=== PATIENT | female | born 1995 | race Asian ===

== ENCOUNTER 2023-01-01 08:40 | Outpatient (OUT) | payer BC, SELFPAY ==
--- NOTE | 2023-01-01 08:44 | US_ITS ---
The [address] [address] Patient Name: DOMINIK FRANCO MRN: [id number] date: 1995 Sex: F Assigned Patient Location: US Current Patient Location: US Accession/Order Number: [id number] Exam Date: 01/01/2023 08:44 Report Date: 01/01/2023 15:09 At the request of: TONI JOSHUA Procedure: US OB transvaginal EXAMINATION: US OB transvaginal HISTORY: MISSED MENSES COMPARISON: No relevant comparison available. FINDINGS: GESTATIONAL SAC: Present and normal appearing. YOLK SAC: Present and normal appearing. POLE: Present and normal appearing. CARDIAC: Present. UTERUS: Normal size and appearance. OVARIES: Right: Normal. Left: Not seen. CERVIX: 4.2 cm in length and closed. CUL-DE-SAC: Normal. OTHER: None. AGE BY LMP: 9 weeks 1 day ELOY BY LMP: 08/05/2023 AGE BY US CRL: 9 weeks 0 days ELOY BY US CRL: 08/06/2023 US/US OB transvaginal IMPRESSION: 1. Single live intrauterine . Electronically authenticated by: KRISTINA ESTRADA Date: 01/01/2023 15:09
== END 2023-01-01 08:41 | disposition home or self-care (01) ==
LOC: US 08:41
PROVIDERS: Visit Provider Obstetrics & Gynecology
DX: Z34.91 Encounter for supervision of normal pregnancy, unspecified, first trimester (principal); N92.6 Irregular menstruation, unspecified
CPT/HCPCS: 76817

== ENCOUNTER 2023-01-14 11:22 | Outpatient (OUT) | payer BC, SELFPAY ==
[2023-01-14 11:51] LABS: Basophils Percent Auto 0.3 % (0.2-2.0); Eosinophils Percent Auto 0.3 % (0.9-7.0); Hematocrit 37.8 % (36.0-48.0); Hemoglobin 12.8 g/dL (12.0-16.0); Immature Granulocytes Abs Auto 0.01 10^3/uL (0.00-0.03); Immature Granulocytes Pct Auto 0.2 % (0.0-0.5); Lymphocytes Absolute Auto 1.9 10^3/uL (1.2-3.8); Lymphocytes Percent Auto 31.9 % (20.5-60.0); Mean Corpuscular HGB Conc 33.9 g/dL (29.9-35.2); Mean Corpuscular Hemoglobin 30.8 pg (26.7-34.0); Mean Corpuscular Volume 90.9 fL (81.0-99.0); Monocytes Absolute Auto 0.3 10^3/uL (0.3-0.8); Monocytes Percent Auto 4.3 % (1.7-12.0); Neutrophils Absolute Auto 3.8 10^3/uL (1.4-6.5); Platelet Count 166 10^3/uL (150-450); Red Blood Count 4.16 10^6/uL (4.20-5.40); Red Cell Distribution Width 11.9 % (11.0-15.0)
[2023-01-14 11:58] LABS: BOX Test Sent Out Y
[2023-01-14 12:09] LABS: Estimated Average Glucose 85 mg/dL; Glycohemoglobin A1C 4.6 % (4.5-6.2)
[2023-01-15 06:08] LABS: HBsAg Screen Negative (Negative); HCV Ab Non Reactive (Non Reactive); HIV Ab/p24 Ag Screen Non Reactive (Non Reactive)
[2023-01-15 07:08] LABS: Rubella Antibodies, IgG <0.90 index (Immune >0.99)
[2023-01-15 10:08] LABS: Rapid Plasma Reagin, Quant Non Reactive titer (NonRea<1:1)
== END 2023-01-14 11:23 | disposition home or self-care (01) ==
LOC: LAB 11:25
PROVIDERS: Visit Provider Obstetrics & Gynecology
DX: Z34.80 Encounter for supervision of other normal pregnancy, unspecified trimester (principal); N92.6 Irregular menstruation, unspecified
CPT/HCPCS: 36415; 83036; 84443; 85025; 86592; 86762; 86803; 86850; 86900; 86901; 87086; 87340; 87389

== ENCOUNTER 2023-03-08 20:18 | Outpatient (REF) | payer BC, SELFPAY ==
[2023-03-12 16:11] LABS: Age Gdln ACOG Testing Note (.); IGP, rfx Aptima HPV ASCU Note (.)
== END 2023-03-08 20:19 | disposition home or self-care (01) ==
LOC: LAB 20:18
PROVIDERS: Visit Provider Obstetrics & Gynecology
DX: Z01.419 Encounter for gynecological examination (general) (routine) without abnormal findings (principal)
CPT/HCPCS: G0145

== ENCOUNTER 2023-03-23 08:43 | Outpatient (OUT) | payer BC, SELFPAY ==
--- NOTE | 2023-03-23 08:44 | US_ITS ---
[address] [address] Patient Name: DOMINIK FRANCO MRN: [id number] date: 1995 Sex: F Assigned Patient Location: US Current Patient Location: LAB Accession/Order Number: [id number] Exam Date: 03/23/2023 08:45 Report Date: 03/23/2023 15:22 At the request of: TONI JOSHUA Procedure: US OB cervical length EXAMINATION: US OB anatomy, US OB cervical length HISTORY: ANATOMY COMPARISON: No relevant comparison available. TECHNIQUE: Transabdominal sonographic examination was performed for obstetrical and evaluation. FINDINGS: Number: 1 Heart Rate: 140.0 bpm H.B. /min Amniotic Fluid Volume: Subjectively normal Placental Location: ANTERIOR with lower margin 7.1 cm from os. Small area of soft tissue adjacent the internal os of uncertain allergy; possible accessory placenta. Cervix Length: 2.9 cm; closed. ANATOMY: Normal Structures -cerebellum, cisterna magna, lateral cerebral ventricles, orbits, midline falx, hard palate, four-chamber heart, RVOT, LVOT, stomach, kidneys, bladder, umbilical cord insertion into abdomen, three-vessel cord, cervical spine, thoracic spine, lumbar spine, sacral spine, right upper extremity, left upper extremity, right lower extremity, left lower extremity. SUBOPTIMALLY SEEN: None ABNORMALITIES: Bilateral choroid plexus cysts, 4 mm in diameter on one side, 3 mm on the other. Echogenic focus within left cardiac ventricle. BIOMETRY: BPD: 5.1 cm 21 weeks 4 days ; 80% HC: 18.3 cm 20 weeks 5 days; 40% AC: 16.3 cm 21 weeks 3 days; 65% FL: 3.6 cm 21 weeks 2 days ; 61% EFW:411.1 grams; 75% FL/AC: 21.9 FL/BPD: 69.5 HC/AC: 1.1 GESTATIONAL AGE: Age by EDC: 20 weeks 5 days ELOY by EDC: 08/05/2023 Age by current US: 21 weeks 2 days ELOY by current US: 08/01/2023 US/US OB cervical length IMPRESSION: 1. Single live intrauterine with growth detailed above. 2. Bilateral choroid plexus cysts. 3. Echogenic focus within left cardiac ventricle; nonspecific but can be associated with the trisomy syndromes. 4. Suspect small accessory placenta adjacent the cervix. Dominant placenta is anterior without previa. Suspect venous esquivel within the placenta. Electronically authenticated by: KRISTINA ESTRADA Date: 03/23/2023 15:22
--- NOTE | 2023-03-23 08:44 | US_ITS ---
[address] [address] Patient Name: DOMINIK FRANCO MRN: [id number] date: 1995 Sex: F Assigned Patient Location: US Current Patient Location: LAB Accession/Order Number: [id number] Exam Date: 03/23/2023 08:45 Report Date: 03/23/2023 15:22 At the request of: TONI JOSHUA Procedure: US OB anatomy EXAMINATION: US OB anatomy, US OB cervical length HISTORY: ANATOMY COMPARISON: No relevant comparison available. TECHNIQUE: Transabdominal sonographic examination was performed for obstetrical and evaluation. FINDINGS: Number: 1 Heart Rate: 140.0 bpm H.B. /min Amniotic Fluid Volume: Subjectively normal Placental Location: ANTERIOR with lower margin 7.1 cm from os. Small area of soft tissue adjacent the internal os of uncertain allergy; possible accessory placenta. Cervix Length: 2.9 cm; closed. ANATOMY: Normal Structures -cerebellum, cisterna magna, lateral cerebral ventricles, orbits, midline falx, hard palate, four-chamber heart, RVOT, LVOT, stomach, kidneys, bladder, umbilical cord insertion into abdomen, three-vessel cord, cervical spine, thoracic spine, lumbar spine, sacral spine, right upper extremity, left upper extremity, right lower extremity, left lower extremity. SUBOPTIMALLY SEEN: None ABNORMALITIES: Bilateral choroid plexus cysts, 4 mm in diameter on one side, 3 mm on the other. Echogenic focus within left cardiac ventricle. BIOMETRY: BPD: 5.1 cm 21 weeks 4 days ; 80% HC: 18.3 cm 20 weeks 5 days; 40% AC: 16.3 cm 21 weeks 3 days; 65% FL: 3.6 cm 21 weeks 2 days ; 61% EFW:411.1 grams; 75% FL/AC: 21.9 FL/BPD: 69.5 HC/AC: 1.1 GESTATIONAL AGE: Age by EDC: 20 weeks 5 days ELOY by EDC: 08/05/2023 Age by current US: 21 weeks 2 days ELOY by current US: 08/01/2023 US/US OB anatomy IMPRESSION: 1. Single live intrauterine with growth detailed above. 2. Bilateral choroid plexus cysts. 3. Echogenic focus within left cardiac ventricle; nonspecific but can be associated with the trisomy syndromes. 4. Suspect small accessory placenta adjacent the cervix. Dominant placenta is anterior without previa. Suspect venous esquivel within the placenta. Electronically authenticated by: KRISTINA ESTRADA Date: 03/23/2023 15:22
== END 2023-03-23 08:44 | disposition home or self-care (01) ==
LOC: US 08:43
PROVIDERS: Visit Provider Obstetrics & Gynecology
DX: O35.03X0 Maternal care for (suspected) central nervous system malformation or damage in fetus, choroid plexus cysts, not applicable or unspecified (principal); Z3A.20 20 weeks gestation of pregnancy
CPT/HCPCS: 36415; 76805; 76817; 82105

== ENCOUNTER 2023-03-23 09:49 | Outpatient (OUT) | payer BC, SELFPAY ==
[2023-03-25 02:06] LABS: AFP Value 56.7 ng/mL (.); Gest. Age on Collection Date 18.6 weeks (.); Gestat. Age Based On As provided (.); Insulin Dep Diabetes No (.); OSBR Risk 1 IN 10000 (.); Results Report (.)
== END 2023-03-23 09:50 | disposition home or self-care (01) ==
LOC: LAB 09:51
PROVIDERS: Visit Provider Obstetrics & Gynecology
DX: Z34.92 Encounter for supervision of normal pregnancy, unspecified, second trimester (principal)
CPT/HCPCS: 36415; 82105

== ENCOUNTER 2023-05-07 15:20 | Outpatient (OUT) | payer BC, SELFPAY ==
--- NOTE | 2023-05-07 15:25 | US_ITS ---
[address] [address] Patient Name: DOMINIK FRANCO MRN: [id number] date: 1995 Sex: F Assigned Patient Location: US Current Patient Location: Accession/Order Number: [id number] Exam Date: 05/07/2023 15:35 Report Date: 05/11/2023 07:44 At the request of: TONI JOSHUA Procedure: US OB cervical length EXAMINATION: US OB growth, US OB cervical length HISTORY: Antepartum Placenta Circumvallata O43.119 COMPARISON: No relevant comparison available. FINDINGS: Heart Rate: 152.5 bpm Amniotic Fluid Volume: 19.0 cm Number: 1.0 Position: Cephalic presentation, longitudinal lie Placenta: Anterior. Placental edge is 7.4 cm from the internal os. Areas of anechoic echogenicity within the placenta likely venous lakes. Cervix: Closed, 2.9 cm Other: Previously seen suspected accessory placenta is not visualized. Maximum Vertical Pocket: 5.1 cm cm 6.1 cm cm 3.8 cm cm 4.0 cm cm BIOMETRY: BPD: 7.3 cm cm; 29 weeks 1 days; 93% HC: 26.3 cmcm; 28 weeks 5 days , 72% AC: 22.9 cm; 27 weeks 2 days , 45% FL: 4.9 cm cm; 26 weeks 3 days; 15.6 % % EFW: 1039.5 grams , 2 lbs. 5 oz., 39% FL/AC: 21.3 FL/BPD: 66.9 HC/AC: 1.2 GESTATIONAL AGE: Age by EDC: 27 weeks 1 days ELOY by EDC: 08/05/2023 Age by US: 27 weeks 6 days ELOY by US: 07/31/2023 US/US OB cervical length IMPRESSION: Normal interval growth Closed cervix measuring 2.9 cm in length Accessory placenta not visualized on the current exam Electronically authenticated by: GREG RODNEY Date: 05/11/2023 07:44
--- NOTE | 2023-05-07 15:25 | US_ITS ---
[address] [address] Patient Name: DOMINIK FRANCO MRN: [id number] date: 1995 Sex: F Assigned Patient Location: US Current Patient Location: Accession/Order Number: [id number] Exam Date: 05/07/2023 15:35 Report Date: 05/11/2023 07:44 At the request of: TONI JOSHUA Procedure: US OB growth EXAMINATION: US OB growth, US OB cervical length HISTORY: Antepartum Placenta Circumvallata O43.119 COMPARISON: No relevant comparison available. FINDINGS: Heart Rate: 152.5 bpm Amniotic Fluid Volume: 19.0 cm Number: 1.0 Position: Cephalic presentation, longitudinal lie Placenta: Anterior. Placental edge is 7.4 cm from the internal os. Areas of anechoic echogenicity within the placenta likely venous lakes. Cervix: Closed, 2.9 cm Other: Previously seen suspected accessory placenta is not visualized. Maximum Vertical Pocket: 5.1 cm cm 6.1 cm cm 3.8 cm cm 4.0 cm cm BIOMETRY: BPD: 7.3 cm cm; 29 weeks 1 days; 93% HC: 26.3 cmcm; 28 weeks 5 days , 72% AC: 22.9 cm; 27 weeks 2 days , 45% FL: 4.9 cm cm; 26 weeks 3 days; 15.6 % % EFW: 1039.5 grams , 2 lbs. 5 oz., 39% FL/AC: 21.3 FL/BPD: 66.9 HC/AC: 1.2 GESTATIONAL AGE: Age by EDC: 27 weeks 1 days ELOY by EDC: 08/05/2023 Age by US: 27 weeks 6 days ELOY by US: 07/31/2023 US/US OB growth IMPRESSION: Normal interval growth Closed cervix measuring 2.9 cm in length Accessory placenta not visualized on the current exam Electronically authenticated by: GREG RODNEY Date: 05/11/2023 07:44
== END 2023-05-07 15:21 | disposition home or self-care (01) ==
LOC: US 15:21
PROVIDERS: Visit Provider Obstetrics & Gynecology
DX: Z36.86 Encounter for antenatal screening for cervical length (principal); O43.113 Circumvallate placenta, third trimester; Z3A.27 27 weeks gestation of pregnancy
CPT/HCPCS: 76816; 76817

== ENCOUNTER 2023-05-31 08:00 | Outpatient (OUT) | payer BC, SELFPAY ==
--- OUTSIDE RECORDS SUMMARY | 2023-05-31 08:12 | XMS_ITS | CCD ---
Author Name Unknown Address [address] [place] [address] Organization [facility] Care Team Providers Care Log Processor Operator Name Role Phone Unavailable Primary Care Provider Unavailjarett e TRES, DR MUÑOZ Consulting Unavailable TRES, DR MUÑOZ Attending Unavailable REQUEST, NONE LISTED Primary Care Unavaila ble TRES, DR MUÑOZ Admitting Unavailable KARASIK, DR GORE Attending Unavailable KARASIK, DR GORE Admitting Unavailable KARASIK, DR GORE Consulting Unavailable REQUEST, NONE LISTED Primary Care Unavaila ble TRES, DR MUÑOZ Consulting Unavailable ZIEBER, DR KRISTINA Kelly Consulting Unavailable MISC, DR RODRÍGUEZ Primary Care Unavailable TRES, DR MUÑOZ Admitting Unavailable TRES, DR MUÑOZ Attending Unavailable TRES, DR MUÑOZ Consulting Unavailable ZIEBER, DR KRISTINA Kelly Consulting Unavailable TRES, DR MUÑOZ Consulting Unavailable TRES, DR MUÑOZ Attending Unavailable REQUEST, DR SENA LISTED Primary Care Unavaila ble TRES, DR MUÑOZ Admitting Unavailable TRES, DR MUÑOZ Consulting Unavailable TRES, DR MUÑOZ Attending Unavailable REQUEST, NONE LISTED Primary Care Unavaila ble TRES, DR MUÑOZ Admitting Unavailable TRES, DR MUÑOZ Admitting Unavailable TRES, DR MUÑOZ Attending Unavailable REQUEST, NONE LISTED Primary Care Unavaila ble TRES, DR MUÑOZ Attending Unavailable TRES, DR MUÑOZ Admitting Unavailable TRES, DR MUÑOZ Consulting Unavailable REQUEST, NONE LISTED Primary Care Unavaila ble TRES, DR MUÑOZ Consulting Unavailable REQUEST, NONE LISTED Primary Care Unavaila ble TRES, DR MUÑOZ Attending Unavailable TRES, DR MUÑOZ Admitting Unavailable ZIEBER, DR KRISTINA Kelly Consulting Unavailable REQUEST, NONE LISTED Primary Care Unavaila ble TRES, DR MUÑOZ Attending Unavailable WEST, DR GREG Smith Consulting Unavailable TRES, DR MUÑOZ Admitting Unavailable TRES, DR MUÑOZ Consulting Unavailable TRES, DR MUÑOZ Consulting Unavailable TRES, DR MUÑOZ Attending Unavailable MISC, DR RODRÍGUEZ Primary Care Unavailable TRES, DR MÑUOZ Admitting Unavailable TRES, DR MUÑOZ Consulting Unavailable TRES, DR MUÑOZ Attending Unavailable REQUEST, DR NONE LISTED Primary Care Unavaila ble TRES, DR MUÑOZ Admitting Unavailable KARASIK, DR GORE Attending Unavailable KARASIK, DR GORE Admitting Unavailable KARASIK, DR GORE Consulting Unavailable REQUEST, NONE LISTED Primary Care Unavaila ble TRES, DR MUÑOZ Consulting Unavailable ZIEBER, DR KRISTINA Kelly Consulting Unavailable MISC, DR RODRÍGUEZ Primary Care Unavailable HAY, DR POWELL Attending Unavailable HAY, DR POWELL Admitting Unavailable HAY, DR POWELL Consulting Unavailable KARASIK, DR GORE Consulting Unavailable TRES, DR MUÑOZ Attending Unavailable REQUEST, DR NONE LISTED Primary Care Unavaila ble TRES, DR MUÑOZ Admitting Unavailable TRES, DR MUÑOZ Consulting Unavailable ELINOR, ALIX FERRER Consulting Unava ilable TRES, DR MUÑOZ Procedure Practitioner Unavailab le TRES, DR MUÑOZ Consulting Unavailable TRES, DR MUÑOZ Attending Unavailable REQUEST, DR NONE LISTED Primary Care Unavaila ble TRES, DR MUÑOZ Admitting Unavailable ZIEBER, DR KRISTINA Kelly Consulting Unavailable PATEL, JOELCHA Consulting Unavailable TRES, DR MUÑOZ Attending Unavailable REQUEST, DR SENA LISTED Primary Care Unavaila ble TRES, DR MUÑOZ Admitting Unavailable MISC, DR RODRÍGUEZ Primary Care Unavailable TRES, DR MUÑOZ Admitting Unavailable TRES, DR MUÑOZ Consulting Unavailable REQUEST, DR SENA LISTED Referring Unavaila ble TRES, DR MUÑOZ Attending Unavailable TRES, DR MUÑOZ Attending Unavailable REQUEST, DR SENA LISTED Primary Care Unavaila ble TRES, DR MUÑOZ Admitting Unavailable Gloria CASTELLANOS Primary Care Physician [phone] Kemal Sharma Attending Unavailable Unavailable Primary Care Provider UnavailLYDIA Liao Referring Unavailable TRESTONI CHRISTINA Attending Unavailable TRES, TONI Attending Unavailable LYDIA GALLO Attending Unavailable Allergies Allergy Classification Reported Allergen(s) Allergy Type Date of Onset Reaction(s) Facility (2 sources) Amoxicillin; Translations: [amoxicillin] Drug Allergy 2 [facility] Repository (1 source) Amoxicillin; Translations: [amoxicillin] Drug Allergy rash [facility] [place] (1 source) Penicillins Propensity to adverse reactions to drug 3 Rash [facility] Medications Current Medications Medication Drug Class(es) Dates Sig (Normalized) Sig (Original) Vit-Fe Fumarate-FA ( VITAMINS PO) (1 source) take 1 tablet by mouth once daily Vit-Fe Fumarate-FA ( VITAMINS PO) Take 1 tablet by mouth daily 0 Active progesterone 200 mg oral capsule (1 source) Progesterone Start: 04-07-2023 progesterone (PROMETRIUM) [address] 1 capsule vaginally daily 0 04/07/2023 Active valACYclovir 1000 mg oral tablet (1 source) Herpesvirus Nucleoside Analog DNA Polymerase Inhibitor, Herpes Simplex Virus Nucleoside Analog DNA Polymerase Inhibitor, Herpes Zoster Virus Nucleoside Analog DNA Polymerase Inhibitor Start: 04-09-2020 valacyclovir 1 g Tab See Instructions, take 2 tab at first sign of cold sore repeat in 12 hours., # 16 tab(s), Refills(s) 1, Pharmacy: [id number], 168, cm, 04/09/20 15:23:00 EST, Height/Length Dosing, 50.7, kg, 04/09/20 15:23:00 EST, Weight Dosing Start Date: 04/09/20 Status: Ordered Zofran ODT 4 mg Tab-Dis (1 source) Start: 06-09-2021 take 1 tablet by mouth every six hours as needed for nausea Zofran ODT 4 mg Tab-Dis 4 mg = 1 tab(s), Oral, q6hr, PRN Nausea/Vomiting, # 12 tab(s), Refills(s) 0, Pharmacy: [facility], 165.1, cm, 06/09/21 2:43:00 EST, Height/Length Dosing, 49, kg, 06/09/21 2:43:00 EST, Weight Dosing Start Date: 06/09/21 Status: Ordered Problems Active Problems Problem Classification Problem Date Documented Date Episodic/Chronic Diseases of mouth; excluding dental (1 source) Aphthous ulcer of mouth 11-02-2019 Episodic Menstrual disorders (4 sources) Irregular menstruation, unspecified; Translations: [IRREGULAR MENSTRUATION UNSPECIFIED] Onset: 07-03-2021 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 (1 source) First degree perineal laceration during delivery; Translations: [FIRST DEG PERINEAL LAC DUR DELIV] Onset: 01-14-2022 Episodic Other complications of (5 sources) Maternal care for other known or suspected poor growth, third trimester, not applicable or unspecified; Translations: [MAT CARE OTH WI FTL GRTH 3RD TM UNS] Onset: 12-31-2021 Episodic Other complications of (1 source) Maternal care for other specified problems, third trimester, not applicable or unspecified; Translations: [MAT CARE OTH FTL PROB 3RD TRI UNS] Onset: 12-25-2021 Episodic Other complications of (1 source) Vomiting of ; Translations: [Vomiting of , unspecified] Onset: 01-03-2023 Episodic Other female genital disorders (5 sources) Other specified noninflammatory disorders of vagina; Translations: [OTH SPEC NONINFLAMMATORY D/O VAGINA] Onset: 12-24-2021 Episodic Other inflammatory condition of skin (1 source) 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 Other nutritional; endocrine; and metabolic disorders (1 source) Body mass index less than 20 11-02-2019 Episodic Other and delivery including normal (8 sources) Single live ; Translations: [Encounter for supervision of other normal , first trimester] Onset: 06-18-2021 Episodic Other screening for suspected conditions (not mental disorders or infectious disease) (20 sources) Encounter for screening for Streptococcus B; Translations: [Encounter for other screening follow-up] Onset: 07-04-2021 Episodic Other skin disorders (1 source) Acne 12-05-2018 Episodic Polyhydramnios and other problems of amniotic cavity (5 sources) Oligohydramnios, third trimester, not applicable or unspecified; Translations: [OLIGOHYDRAMNIOS THIRD TRI NA/UNS] Onset: 12-24-2021 Episodic Residual codes; unclassified (1 source) 38 weeks gestation of ; Translations: [38 WEEKS GESTATION OF ] Onset: 01-14-2022 Episodic Residual codes; unclassified (1 source) 37 weeks gestation of ; Translations: [37 WEEKS GESTATION OF ] Onset: 01-04-2022 Episodic Residual codes; unclassified (1 source) 36 weeks gestation of ; Translations: [36 WEEKS GESTATION OF ] Onset: 12-31-2021 Episodic Residual codes; unclassified (1 source) 35 weeks gestation of ; Translations: [35 WEEKS GESTATION OF ] Onset: 12-25-2021 Episodic Unclassified (1 source) CONTACT W/AND (SUSP) EXPOS COVID-19; Translations: [CONTACT W/AND (SUSP) EXPOS COVID-19] Onset: 01-14-2022 Unclassified (2 sources) Patient encounter status 12-05-2018 Viral infection (1 source) Herpes labialis 04-09-2020 Episodic Past or Other Problems Problem Classification Problem Date Documented Date Episodic/Chronic Immunizations and screening for infectious disease (3 sources) Encounter for screening for human papillomavirus (HPV); Translations: [Encounter for screening for infections with a predominantly sexual mode of transmission] Onset: 07-04-2021 Episodic Other complications of (4 sources) Mild hyperemesis gravidarum; Translations: [MILD HYPEREMESIS GRAVIDARUM] Onset: 06-17-2021 Episodic Residual codes; unclassified (1 source) 9 weeks gestation of ; Translations: [9 WEEKS GESTATION OF ] Onset: 06-19-2021 Episodic Results Test Name Value Interpretation Reference Range Facility CBC with Auto Differentialon 04-28-2023 Basophils (Bld) [#/Vol] 0.03 10*3/uL [facility] Basophils/100 WBC (Bld) 1 % 0 - 2 % [facility] Eosinophils (Bld) [#/Vol] 0.04 10*3/uL [facility] Eosinophils/100 WBC (Bld) 1 % 0 - 5 % [facility] Erythrocyte distribution width (RBC) [Ratio] 11.8 % Low 12.1 - 15.2 % [facility] Hematocrit (Bld) [Volume fraction] 35.4 % Low 36.0 - 46.0 % [facility] Hemoglobin (Bld) [Mass/Vol] 11.9 g/dL Low 12.0 - 16.0 g/dL [facility] Immature granulocytes (Bld) [#/Vol] 0.04 10*3/uL [facility] Immature granulocytes/100 WBC (Bld) 1 % 0 - 5 % [facility] Interpretation and review of laboratory results Abnormal [facility] Lymphocytes/100 WBC (Bld) 24 % 15 - 40 % [facility] Lymphocytes/100 WBC (Bld) 1.53 % [facility] MCH (RBC) [Entitic mass] 32.9 pg 26.0 - 34.0 pg [facility] MCHC (RBC) [Mass/Vol] 33.6 g/dL 31.0 - 37.0 g/dL [facility] MCV (RBC) [Entitic vol] 97.8 fL 80.0 - 100.0 fL [facility] Monocytes/100 WBC (Bld) 6 % 4 - 8 % [facility] Monocytes/100 WBC (Bld) 0.41 % [facility] Neutrophils/100 WBC (Bld) 67 % 47 - 75 % [facility] Platelet mean volume (Bld) [Entitic vol] 9.5 fL 6.0 - 12.0 fL [facility] Platelets (Bld) [#/Vol] 155 10*3/uL [facility] RBC (Bld) [#/Vol] 3.62 10*6/uL Low 4.00 - 5.2 0 m/uL [facility] Segmented neutrophils/100 WBC (Bld) 4.37 % [facility] WBC other (Bld) [#/Vol] 6.4 [facility] CBC with Diffon 04-28-2023 Abs. Basophil 0.03 k/uL Normal 0.00-0.20 [facility] Comment on above: Performed By: #### C DP, GLUSC #### [facility] [address] [place] [address] Manager Development: Greg Castillo MD Abs.Imm.Granulocyte 0.04 k/uL Normal 0.00-0.30 [facility] Comment on above: Performed By: #### C DP, GLUSC #### [facility] [address] [facility] [address] Manager Development: Greg Castillo MD Abs.Neutrophil (Seg) 4.37 k/uL Normal 2.5-7.0 [facility] Comment on above: Performed By: #### C DP, GLUSC #### [facility] [address] [place], [place] [id number] Manager Development: Greg Castillo MD Basophils/100 WBC (Bld) 1 % Normal 0-2 [facility] Comment on above: Performed By: #### C DP, GLUSC #### [facility] [address] [place], [place] [id number] Manager Development: Greg Castillo MD Eosinophils (Bld) [#/Vol] 0.04 10*3/uL Normal 0.00-0.40 [facility] Comment on above: Performed By: #### C DP, GLUSC #### [facility] [address] [place] [address] Manager Development: Greg Castillo MD Eosinophils/100 WBC (Bld) 1 % Normal 0-5 [facility] Comment on above: Performed By: #### C DP, GLUSC #### [facility] [address] [place] [address] Manager Development: Greg Castillo MD Erythrocyte distribution width (RBC) [Ratio] 11.8 % Low 12.1-15.2 [facility] Comment on above: Performed By: #### C DP, GLUSC #### [facility] [address] [place] [address] Manager Development: Greg Castillo MD Hematocrit (Bld) [Volume fraction] 35.4 % Low 36.0-46.0 [facility] Comment on above: Performed By: #### C DP, GLUSC #### [facility] [address] [place] [address] Manager Development: Greg Castillo MD Hemoglobin (Bld) [Mass/Vol] 11.9 g/dL Low 12.0-16.0 [facility] Comment on above: Performed By: #### C DP, GLUSC #### [facility] [address] [place] [address] Manager Development: Greg Castillo MD Immature granulocytes/100 WBC (Bld) 1 % Normal 0-5 [facility] Comment on above: Performed By: #### C DP, GLUSC #### [facility] [address] [place] [id number] Manager Development: Greg Castillo MD Lymphocytes (Bld) [#/Vol] 1.53 10*3/uL Normal 1.00-4.80 [facility] Comment on above: Performed By: #### C DP, GLUSC #### [facility] [address] [place] [address] Manager Development: Greg Castillo MD Lymphocytes/100 WBC (Bld) 24 % Normal 15-40 [facility] Comment on above: Performed By: #### C DP, GLUSC #### [facility] [address] [place] [address] Manager Development: Greg Castillo MD MCH (RBC) [Entitic mass] 32.9 pg Normal 26.0-34.0 [facility] Comment on above: Performed By: #### C DP, GLUSC #### [facility] [address] [place] [address] Manager Development: Greg Castillo MD MCHC (RBC) [Mass/Vol] 33.6 g/dL Normal 31.0-37.0 [facility] Comment on above: Performed By: #### C DP, GLUSC #### [facility] [address] [place] [address] Manager Development: Greg Castillo MD MCV (RBC) [Entitic vol] 97.8 fL Normal 80.0-100.0 [facility] Comment on above: Performed By: #### C DP, GLUSC #### [facility] [address] [place] [address] Manager Development: Greg Castillo MD Monocytes (Bld) [#/Vol] 0.41 10*3/uL Normal 0.00-1.00 [facility] Comment on above: Performed By: #### C DP, GLUSC #### [facility] [address] [place] [phone] Manager Development: Greg Castillo MD Monocytes/100 WBC (Bld) 6 % Normal 4-8 [facility] Comment on above: Performed By: #### C DP, GLUSC #### [facility] [address] [place] [phone] Manager Development: Greg Castillo MD Neutrophil (Seg) 67 % Normal 47-75 [facility] Comment on above: Performed By: #### C DP, GLUSC #### [facility] [address] [place] [id number] Manager Development: Greg Castillo MD Platelet mean volume (Bld) [Entitic vol] 9.5 fL Normal 6.0-12.0 [facility] Comment on above: Performed By: #### C DP, GLUSC #### [facility] [address] [place] [id number] Manager Development: Greg Castillo MD Platelets (Bld) [#/Vol] 155 10*3/uL Normal 140-450 [facility] Comment on above: Performed By: #### C DP, GLUSC #### [facility] [address] [place] [address] (863) Manager Development: Greg Castillo MD RBC (Bld) [#/Vol] 3.62 10*6/uL Low 4.00-5.20 [facility] Comment on above: Performed By: #### C DP, GLUSC #### [facility] [address] [place] [address] Manager Development: Greg Castillo MD WBC (Bld) [#/Vol] 6.4 10*3/uL Normal 3.5-11.0 [facility] Comment on above: Performed By: #### C DP, GLUSC #### [facility] [address] [place] [address] Manager Development: Greg Castillo MD Glucose David Scr 50gon 2023 Glucose [Mass/Vol] 108 mg/dL Normal 70-135 [facility] Comment on above: Performed By: #### C DP, GLUSC #### [facility] [address] [place] [address] Manager Development: Greg Castillo MD Glu Administered via Glucola Normal [facility] Comment on above: Performed By: #### C DP, GLUSC #### [facility] [address] [place] [address] Manager Development: Greg Castillo MD Glucose tolerance, 1 houron 04-28-2023 GLU ADMN Glucola [facility] Glucose 1 Hr post 50 g glucose PO [Mass/Vol] 108 mg/dL 70 - 135 mg/dL [facility] Discharge Instructionson Discharge Instructions [id number] Normal [facility] Auto Diffon 01-03-2023 Basophils/100 WBC (Bld) 0.5 % Normal 0.0-2.0 [facility] Comment on above: Order Comment: Order Added by Discern Expert. Performed By: #### 2 [id number], [id number], [id number], [id number] #### [facility] [address] [place] [address] Basophils/Leukocytes Auto (Bld) [Pure # fraction] 0.0 E9/L Normal 0.0-0.2 [facility] Comment on above: Order Comment: Order Added by Discern Expert. Performed By: #### 2 051857, [id number], [id number], [id number] #### [facility] [address] [place] [address] Eosinophils/100 WBC (Bld) 0.3 % Normal 0.0-8.0 [facility] Comment on above: Order Comment: Order Added by Discern Expert. Performed By: #### 2 450678, [id number], [id number], [id number] #### [facility] [address] [place] [address] Eosinophils/Leukocyte s Auto (Bld) [Pure # fraction] 0.0 E9/L Normal 0.0-0.5 [facility] Comment on above: Order Comment: Order Added by Kya Expert. Performed By: #### 2 452680, [id number], [id number], [id number] #### [facility] [address] [place] [address] Lymphocytes/100 WBC (Bld) 29.1 % Normal 14.0-50.0 [facility] Comment on above: Order Comment: Order Added by Kya Expert. Performed By: #### 2 459337, 7154352, [id number], [id number] #### [facility] [address] [place] [address] Lymphocytes/Leukocyte s Auto (Bld) [Pure # fraction] 1.7 E9/L Normal 1.0-4.0 [facility] Comment on above: Order Comment: Order Added by Discern Expert. Performed By: #### 2 071760, 7858866, [id number], [id number] #### [facility] [address] [place] [address] Monocytes/100 WBC (Bld) 5.1 % Normal 4.0-14.0 [facility] Comment on above: Order Comment: Order Added by Kya Expert. Performed By: #### 2 033191, 8888103, [id number], [id number] #### [facility] [address] [place] [address] Monocytes/Leukocytes Auto (Bld) [Pure # fraction] 0.3 E9/L Normal 0.2-1.0 [facility] Comment on above: Order Comment: Order Added by Discern Expert. Performed By: #### 2 614793, 5544751, [id number], [id number] #### [facility] [address] [place] [address] Neutrophils/100 WBC (Bld) 65.0 % Normal 36.0-75.0 [facility] Comment on above: Order Comment: Order Added by Discern Expert. Performed By: #### 2 483543, 5139748, [id number], [id number] #### [facility] [address] [place] [address] Neutrophils/Leukocyte s Auto (Bld) [Pure # fraction] 3.8 E9/L Normal 2.0-7.5 [facility] Comment on above: Order Comment: Order Added by Discern Expert. Performed By: #### 2 693034, 2269396, [id number], [id number] #### [facility] [address] [place] [address] BMPon 01-03-2023 Creatinine [Mass/Vol] 0.5 mg/dL Normal 0.5-1.3 [facility] Comment on above: Performed By: #### 2 322548, 7798193, [id number], 5130531 #### [facility] [address] [place] [address] Urea nitrogen [Mass/Vol] 8 mg/dL Normal 5-21 [facility] Comment on above: Performed By: #### 2 019072, 7371316, 76462381, 6161656 #### [facility] [address] [place] [address] Urea nitrogen/Creatinine [Mass ratio] 16 No Units Normal 10-20 [facility] Comment on above: Performed By: #### 2 196324, 7629471, [id number], 9237497 #### [facility] [address] [place] [address] Anion gap [Moles/Vol] 7 mmol/L Normal 6-16 [facility] Comment on above: Performed By: #### 2 650576, 6727885, 20007390, 8146945 #### [facility] [address] [place] [address] Calcium [Mass/Vol] 9.3 mg/dL Normal 8.9-11.1 [facility] Comment on above: Performed By: #### 2 876791, 5009524, 16668986, 7538988 #### [facility] [address] [place] [address] Chloride [Moles/Vol] 105 mmol/L Normal 101-111 [facility] Comment on above: Performed By: #### 2 968007, 4980674, [id number], [id number] #### [facility] [address] [place] [address] CO2 [Moles/Vol] 24 mmol/L Normal 21-31 [facility] Comment on above: Performed By: #### 2 916175, 6247890, 58225649, [id number] #### [facility] [address] [place] [facility] [place] [address] Glucose [Mass/Vol] 108 mg/dL Normal 55-199 [facility] Comment on above: Result Comment: If t his glucose result represents a fasting glucose, interpretation should refer to the following reference range: 55-99 mg/dL Performed By: #### 2 051471, 4642632, [id number], [id number] #### [facility] [address] [place] [address] Potassium [Moles/Vol] 3.4 mmol/L Low 3.5-5.3 [facility] Comment on above: Performed By: #### 2 945301, 3902207, 51945610, 6199128 #### [facility] [address] [place] [address] Sodium [Moles/Vol] 133 mmol/L Low 135-145 [facility] Comment on above: Performed By: #### 2 809252, 4327304, [id number], 8671982 #### [facility] [address] [place] [address] CBC w/ Auto Diffon 3 Erythrocyte distribution width (RBC) [Ratio] 12.5 % Normal 10.9-14.2 [facility] Comment on above: Performed By: #### 2 470485, 9727067, 40121938, 2240008 #### [facility] [address] [place] [id number] Hematocrit (Bld) [Volume fraction] 39.8 % Normal 34.0-46.0 [facility] Comment on above: Performed By: #### 2 748671, 2622062, 23387156, 9417377 #### [facility] [address] [place] [address] Hemoglobin (Bld) [Mass/Vol] 14.2 g/dL Normal 12.0-16.0 [facility] Comment on above: Performed By: #### 2 051325, 5996127, 16197194, 1437018 #### [facility] [address] [place] [address] MCH (RBC) [Entitic mass] 31.7 pg Normal 27.0-34.0 [facility] Comment on above: Performed By: #### 2 406138, 4205727, [id number], 9378218 #### [facility] [address] [place] [address] MCHC (RBC) [Mass/Vol] 35.6 g/dL Normal 31.4-36.0 [facility] Comment on above: Performed By: #### 2 898137, 5035997, [id number], 9909632 #### [facility] [address] [place] [address] MCV (RBC) [Entitic vol] 89.0 fL Normal 80.0-100.0 [facility] Comment on above: Performed By: #### 2 [id number], [id number], [id number], [id number] #### [facility] [address] [place] [address] Platelet mean volume (Bld) [Entitic vol] 7.6 fL Normal 6.4-10.8 [facility] Comment on above: Performed By: #### 2 [id number] #### [facility] [address] [place] [address] Platelets (Bld) [#/Vol] 170.0 E9/L Normal 150.0-500.0 [facility] Comment on above: Performed By: #### 2 [id number], [id number], [id number] #### [facility] [address] [place] [address] RBC (Bld) [#/Vol] 4.5 E12/L Normal 4.3-5.9 [facility] Comment on above: Performed By: #### 2 [id number], [id number], [id number] #### [facility] [address] [place] [address] WBC corrected for nucl RBC Auto (Bld) [#/Vol] 5.8 E9/L Normal 4.0-11.0 [facility] Comment on above: Performed By: #### 2 [id number] #### [facility] [address] [place] [address] CHEMISTRYOrdered By: SYSTEM SYSTEM on 01-03-2023 Anion gap [Moles/Vol] 7 mmol/L Normal 6 - 16 mEq/L [facility] Remisol Calcium [Mass/Vol] 9.3 mg/dL Normal 8.9 - 11. 1 mg/dL [facility] Chloride [Moles/Vol] 105 mmol/L Normal 101 - 1 11 mmol/L [facility] Rem[facility] CO2 [Moles/Vol] 24 mmol/L Normal 21 - 31 mmol/L [facility] Rem[facility] Creatinine [Mass/Vol] 0.5 mg/dL Normal 0.5 - 1.3 mg/dL [facility] Remisol GFR/1.73 sq M.predicted among non-blacks MDRD (S/P/Bld) [Vol rate/Area] 133 mL/min/1.73 m2 Normal >=59mL/min/1. 73 m2 [facility] Chem S Glucose [Mass/Vol] 108 mg/dL Normal 55 - 199 mg/dL [facility] Remisol Potassium [Moles/Vol] 3.4 mmol/L Low 3.5 - 5.3 mmol/L [facility] Remisol Sodium [Moles/Vol] 133 mmol/L Low 135 - 145 mmol/L [facility] Remisol Urea nitrogen [Mass/Vol] 8 mg/dL Normal 5 - 21 mg/dL [facility] Remisol Urea nitrogen/Creatinine [Mass ratio] 16 mg/mg Normal 10 - 20 [facility] Remisol Consent for Treatmenton 12-25 Consent for Treatment [id number] 30 [id number] #1.00CD:127 Normal [facility] ED Clinical Summaryon 2022 ED Clinical Summary [place] [address] ED Clinical Summary Person Information Name: DOMINIK FRANCO [facility] Age: 27 Years : 1995 Sex: Female Language: Sami PCP: Gloria CASTELLANOS CNP Marital Status: Visit Id: Visit Reason: Vomiting - ; Nausea; 9 weeks , nauesea, puking, dehydrated Speciality: Acuity: 3 Enc Type: Emergency Med Service: Emergency Arrival: 01/03/2023 16:15:39 Discharge: 01/03/2023 20:49:57 LOS: 000 04:34 Checkin: 01/03/2023 16:15:39 Checkout: 01/03/2023 20:49:57 Dispo Type: Home (Routine DC) EVENTS: Event Name Event Status Request Date/Time Start Date/Time Complete Date/Time Arrive Complete 01/03/2023 16:15:39 01/03/2023 16:15:39 01/03/2023 16:15:39 Document Home Meds Request 01/03/2023 16:15:39 Triage Complete 01/03/2023 16:15:39 01/03/2023 17:01:16 01/03/2023 17:01:16 Registration Complete 01/03/2023 16:26:24 01/03/2023 16:26:24 01/03/2023 16:26:24 Reg Complete Request 01/03/2023 16:26:24 Reg Bed Request Complete 01/03/2023 16:26:24 01/03/2023 16:26:24 01/03/2023 16:26:24 Pending Labs Complete 01/03/2023 17:02:40 01/03/2023 17:31:55 Lab Complete 01/03/2023 17:02:40 01/03/2023 17:31:55 Urine Collect Complete 01/03/2023 17:02:40 01/03/2023 17:31:55 Bed Assign Complete 01/03/2023 18:21:33 01/03/2023 18:21:33 01/03/2023 18:21:33 Dr Exam Complete 01/03/2023 18:21:33 01/03/2023 18:24:37 01/03/2023 18:24:37 RN Exam Complete 01/03/2023 18:21:33 01/03/2023 18:25:33 01/03/2023 18:25:33 Registration Request 01/03/2023 18:24:37 Dr Exam Complete 01/03/2023 18:25:38 01/03/2023 18:25:38 01/03/2023 18:25:38 Meds Admin Request 01/03/2023 18:27:53 Pending Labs Complete 01/03/2023 18:27:53 01/03/2023 19:29:45 Lab Complete 01/03/2023 18:27:53 01/03/2023 19:29:45 Pending Labs Complete 01/03/2023 19:15:30 01/03/2023 19:15:30 01/03/2023 19:29:46 Lab Complete 01/03/2023 19:15:30 01/03/2023 19:15:30 01/03/2023 19:29:46 Pending Labs Complete 01/03/2023 19:22:32 01/03/2023 19:22:32 01/03/2023 19:22:37 Lab Complete 01/03/2023 19:22:32 01/03/2023 19:22:32 01/03/2023 19:22:37 Meds Admin Request 01/03/2023 19:43:05 Discharge Complete 01/03/2023 20:40:50 01/03/2023 20:50:04 01/03/2023 20:50:04 Transfer Complete 01/03/2023 20:50:04 01/03/2023 20:50:04 01/03/2023 20:50:04 ADDRESS: [address] [place] [address] [id number] [facility] DOC NOTES: MEDICAL INFORMATION: Prescriptions Given: Medications to Continue with No Changes Other Medications ondansetron (Zofran ODT 4 mg Tab-Dis) 1 Tablets By Mouth every 6 hours as needed Nausea/Vomiting. Refills: 0. valacyclovir (valacyclovir 1 g Tab) take 2 tab at first sign of cold sore repeat in 12 hours.. Refills: 1. PATIENT EDUCATION INFORMATION: Instructions: Morning Sickness, Pess-ui-Vkie Follow up: With: Address: When: Toni WATKINS [facility], [address] [place] [address] [place] [address] Business (1) In 3 days 01/06/2023 DIAGNOSIS: Nausea/vomiting in Normal [facility] ED Note-Physicianon 01-04-20 ED Note-Physician Basic Information Time Seen: Velia Correa PA-C 01/03/2023 18:[address] De Paz for OB , ELOY 08/05/2023. c/o N/V x 2 weeks. denies cramping or vaginal bleeding. pt. states she does have some brown d/c at times when she wipes. denies pain. conerned for dehydration. pt. states approx. 6 weeks . History of Present Illness 27-year-old female who is 9 weeks , presents to the ED with 2 weeks of nausea and vomiting. Patient reports that she believes that she is dehydrated. Patient is followed by EMERGENCY MANAGEMENT PROGRAM SPECIALIST, Dr. Watkins, has had an ultrasound which confirmed intrauterine . Denies any bleeding or vaginal discharge. States that she had increased vomiting over the last few days and wanted to come to the ED to be checked out. Review of Systems All organ systems are reviewed. Pertinent positive and negative findings as mentioned in the HPI. Physical Exam Vitals & Measurements T: 36.7 ?C(Oral) HR: 70(Peripheral) RR: 18 BP: 106/71 SpO2: 99% HT: 163 cm WT: 48.1 kg BMI: 18.1 GENERAL APPEARANCE: Well developed, well nourished, alert and cooperative, and appears to be in no acute distress. HEAD: normocephalic, atraumatic EYES: PERRL, EOMI. Vision is grossly intact. EARS: External auditory canals clear, hearing grossly intact. NOSE: No nasal discharge. THROAT: Oral cavity and pharynx normal. Oral mucosa moist. CARDIAC: Normal heart sounds, no murmurs. Rhythm is regular. LUNGS: Clear to auscultation without rales, rhonchi, wheezing or diminished breath sounds. ABDOMEN: Positive bowel sounds. Soft, nondistended, nontender. No guarding or rebound. MUSCULOSKELETAL: Adequately aligned spine. ROM intact spine and extremities. No joint erythema or tenderness. NEUROLOGICAL: CN grossly intact. Strength and sensation symmetric and intact throughout. SKIN: Skin normal color, texture and turgor with no lesions or eruptions. Assessment/Plan Nausea/vomiting in (O21.9: Vomiting of , unspecified) Orders: Sodium Chloride 0.9% intravenous solution 1,000 mL, 1,000 mL, IV, bolus, STAT, Start date 01/03/23 19:42:00 EDT, Total volume (mL): 1,000, Bolus Dose: 1,000 mL, 48.1 kg, 1.48, m2 Sodium Chloride 0.9% intravenous solution 1,000 mL, 1,000 mL, IV, bolus, STAT, Start date 01/03/23 18:27:00 EDT, Total volume (mL): 1,000, Bolus Dose: 1,000 mL, 48.1 kg, 1.48, m2 Automated Diff Basic Metabolic Panel CBC w/ Auto Diff eGFR 27 old female presents to the ED with concerns for dehydration due to nausea and vomiting of . In the ED patient afebrile, vital signs are stable, no acute stress. Labs are reviewed noted, no concerning findings. No leukocytosis, kidney function within normal limits. Urinalysis shows no evidence of infection. Patient treated with 2 L IV fluids in the ED. On reexamination she is feeling much improved. Able to tolerate water without difficulty, no vomiting while in the ED. Patient educated on results and supportive care. States that she has Phenergan and Zofran at home for nausea ready. Patient discharged home with instructions to follow with EMERGENCY MANAGEMENT PROGRAM SPECIALIST and is to return to the ED with any new or worsening symptoms. Patient voices understanding is agreeable to plan Medications Administered Given Sodium Chloride 0.9% IV Chelsy 1000 mL 1,000 mL, 1000 mL, IV Disposition Plan Patient Discharge Condition improved, stable Discharge Disposition to home Discharge Prescription List Prescriptions No active prescription medications Follow-up With When Contact Information Toni WATKINS In 3 days 01/06/[address] [place] [place] [address] Business (1) Additional Instructions: Patient Education Morning Sickness, Sdkn-ub-Fmjr Attestation Patient was treated and evaluated by the Physician Crisis Therapist. The attending physician was in the Emergency Department at all times and supervised care. The case was discussed with the attending physician and diagnostics were reviewed as needed. Problem List/Past Medical History Ongoing Acne Aphthous ulcer of mouth BMI less than 19,adult General counseling and advice on contraceptive management Guttate psoriasis Herpes simplex labialis Wellness examination Historical No qualifying data Procedure/Surgical History prosthesis Left eye. Medications Inpatient Sodium Chloride 0.9% IV Chelsy 1000 mL 1,000 mL, 1000 mL, IV Sodium Chloride 0.9% IV Chelsy 1000 mL 1,000 mL, 1000 mL, IV Home valacyclovir 1 g Tab, See Instructions, 1 refills, Not taking Zofran ODT 4 mg Tab-Dis, 4 mg= 1 tab(s), Oral, q6hr, PRN Allergies amoxicillin (rash) Social History Tobacco - Denies Tobacco Use, 04/05/2021 Never (less than 100 in lifetime) Tobacco Use:. Never Smokeless Tobacco Use:. Cigarettes, 04/05/2021 Never (less than 100 in lifetime) Tobacco Use:. Never Smokeless Tobacco Use:. Cigarettes, 11/06/2020 Family History Patient was adopted Family history is unknown (more content not included)... Normal [facility] Comment on above: Result Comment: Elec tronically Signed By: Velia Correa PA-C\.br\Date and Time Signed: 01/03/23 20:41 EDT\.br\Electronically Co-Signed By: Kemal Sharma DO\.br\Date and Time Co-Signed: 01/03/23 21:32 EDT ED Patient Education Noteon 01-03-2023 ED Patient Education Note Obstetrics and Gynecology Morning Sickness Morning sickness is when you feel like you may vomit (feel nauseous) during . Sometimes, you may vomit. Morning sickness most often happens in the morning, but it can also happen at any time of the day. Some women may have morning sickness that makes them vomit all the time. This is a more serious problem that needs treatment. What are the causes? The cause of this condition is not known. What increases the risk? ? You had vomiting or a feeling like you may vomit before your . ? You had morning sickness in another . ? You are with more than one baby, such as twins. What are the signs or symptoms? ? Feeling like you may vomit. ? Vomiting. How is this treated? Treatment is usually not needed for this condition. You may only need to change what you eat. In some cases, your doctor may give you some things to take for your condition. These include: ? Vitamin B6 supplements. ? Medicines to treat the feeling that you may vomit. ? Carmen. Follow these instructions at home: Medicines ? Take iveq-ffp-fgnrybq and prescription medicines only as told by your doctor. Do not take any medicines until you talk with your doctor about them first. ? Take multivitamins before you get . These can stop or lessen the symptoms of morning sickness. Eating and drinking ? Eat dry toast or crackers before getting out of bed. ? Eat 5 or 6 small meals a day. ? Eat dry and bland foods like rice and baked potatoes. ? Do not eat greasy, fatty, or spicy foods. ? Have someone cook for you if the smell of food causes you to vomit or to feel like you may vomit. ? If you feel like you may vomit after taking vitamins, take them at night or with a snack. ? Eat protein foods when you need a snack. Nuts, yogurt, and cheese are good choices. ? Drink fluids throughout the day. ? Try carmen arnoldo made with real carmen, carmen tea made from fresh grated carmen, or carmen candies. General instructions ? Do not smoke or use any products that contain nicotine or tobacco. If you need help quitting, ask your doctor. ? Use an air purifier to keep the air in your house free of smells. ? Get lots of fresh air. ? Try to avoid smells that make you feel sick. ? Try wearing an acupressure wristband. This is a wristband that is used to treat seasickness. ? Try a treatment called acupuncture. In this treatment, a doctor puts needles into certain areas of your body to make you feel better. Contact a doctor if: ? You need medicine to feel better. ? You feel dizzy or light-headed. ? You are losing weight. Get help right away if: ? The feeling that you may vomit will not go away, or you cannot stop vomiting. ? You faint. ? You have very bad pain in your belly. Summary ? Morning sickness is when you feel like you may vomit (feel nauseous) during . ? You may feel sick in the morning, but you can feel this way at any time of the day. ? Making some changes to what you eat may help your symptoms go away. This information is not intended to replace advice given to you by your health care provider. Make sure you discuss any questions you have with your health care provider. Document Revised: 11/25/2020 Document Reviewed: 11/04/2020 [employer] Patient Education ? 2022 [employer] Normal [facility] ED Patient Summaryon 023 ED Patient Summary [address] [address] Patient Discharge Instructions Person Information Name: DOMINIK FRANCO Age: 27 Years Arrival Date: 01/03/2023 16:15:39 Discharge Diagnosis: Nausea/vomiting in Primary Care Physician: Gloria CASTELLANOS CNP Provider Information Primary Provider: Kemal Sharma DO Advanced Glove Sewer:Velia Correa PA-C The exam and treatment you received in the Emergency Department were for an urgent problem and are not intended as complete care. It is important that you follow up with a doctor, nurse practitioner, or physician?s assistant portfolio manager for ongoing care. If your symptoms become worse or you do not improve as expected and you are unable to reach your usual health care provider, you should return to the Emergency Department. We are available 24 hours a day. DOMINIK FRANCO has been given the following list of patient education materials, prescriptions and follow-up instructions: Follow-up Instructions: With: Address: When: Toni TRES [facility], [address] [place] [address] [place] [address] Business (1) In 3 days 01/06/2023 In the event that this physician does not participate in your insurance network, please consult with your insurance company to find a nearby participating provider. Patient Education Materials: Morning Sickness, Gztq-zw-Oudi A MESSAGE TO ALL PATIENTS REGARDING OPIOIDS PRESCRIPTION OPIOIDS: WHAT YOU NEED TO KNOW Prescription opioids can be used to help relieve cewycbcr-mr-hgferx pain and are often prescribed following a surgery or injury, or for certain health conditions. These medications can be an important part of the treatment but also come with serious risks. It is important to work with your healthcare provider to make sure you are getting the safest, most effective care. WHAT ARE THE RISKS AND SIDE EFFECTS OF OPIOID USE? Prescription opioids carry serious risks of addiction and overdose, especially with prolonged use. An opioid overdose, often marked by slowed breathing, can cause sudden . The use of prescription opioids can have a number of side effects as well, even when taken as directed: ? Tolerance?meaning you might need to take more of the medication for the same pain relief ? Physical dependence?meaning you have symptoms of withdrawal when a medication is stopped ? Increased sensitivity to pain ? Constipation ? Nausea, vomiting, and dry mouth ? Sleepiness and dizziness ? Confusion ? Depression ? Low levels of testosterone that can result in lower sex drive, energy, and strength ? Itching and sweating RISKS ARE GREATER WITH: ? History of drug misuse, substance use disorder, or overdose ? Mental health conditions (such as depression or anxiety) ? Sleep apnea ? Older age (65 years and older) ? Avoid alcohol while taking prescription opioids. Also, unless specifically advised by your health care provider, medications to avoid include: ? Benzodiazepines (such as Xanax or Valium) ? Muscle relaxants (such as Soma or Flexeril) ? Hypnotics (such as Ambien or Lunesta) ? Other prescription opioids KNOW YOUR OPTIONS Talk to your health care provider about ways to manage your pain that don?t involve prescription opioids. Some of these options may actually work better and have fewer risks and side effects. Options may include: ? Pain relievers such as acetaminophen, ibuprofen, and naproxen ? Some medication that are also used for depression or seizures ? Physical therapy and exercise ? Cognitive behavioral therapy, a psychological, goal-directed approach, in which patients learn how to modify physical, behavioral, and emotional triggers of pain and stress. IF YOU ARE PRESCRIBED OPIOIDS FOR PAIN: ? Never take opioids in greater amounts or more often than prescribed. ? Follow up with your primary health care provider. o Work together to create a plan on how to manage your pain. o Talk about ways to help manage your pain that don?t involve prescription opioids. o Talk about any and all concerns and side effects. ? Help prevent misuse and abuse o Never sell or share prescription opioids. o Never use another person?s prescription opioids. ? Store prescription opioids in a secure place and out of reach of others (this may include visitors, children, friends, and family). ? Safely dispose of unused prescription opioids: Find your community drug take-back program or your pharmacy mail-back program, or flush them down the toilet, following guidance from the Food and Drug Administration (www.fda.gov/Drugs/R esourcesForYou). ? Visit www.cdc.gov/drugover dose to learn about the risks of opioids abuse and overdose. ? If you believe you may be struggling with addiction, tell your health medicare contact specialist and ask for guidance or call [employer]?S National Hel[employer]i (more content not included)... Normal [facility] HEMATOLOGYOrdered By: SYSTEM SYSTEM on 01-03-2023 Basophils/100 WBC (Bld) 0.5 % Normal 0.0 - 2.0 % [facility] HemeAutoSS Basophils/Leukocytes Auto (Bld) [Pure # fraction] 0.0 E9/L Normal 0.0 - 0.2 E9/L [facility]eAutoSS Eosinophils/100 WBC (Bld) 0.3 % Normal 0.0 - 8.0 % [facility] HemeAutoSS Eosinophils/Leukocyte s Auto (Bld) [Pure # fraction] 0.0 E9/L Normal 0.0 - 0.5 E9/L [facility]eAutoSS Lymphocytes/100 WBC (Bld) 29.1 % Normal 14.0 - 50.0 % [facility]eAutoSS Lymphocytes/Leukocyte s Auto (Bld) [Pure # fraction] 1.7 E9/L Normal 1.0 - 4.0 E9/L [facility] HemeAutoSS Monocytes/100 WBC (Bld) 5.1 % Normal 4.0 - 14.0 % [facility]eAutoSS Monocytes/Leukocytes Auto (Bld) [Pure # fraction] 0.3 E9/L Normal 0.2 - 1.0 E9/L [facility]eAutoSS Neutrophils/100 WBC (Bld) 65.0 % Normal 36.0 - 75.0 % [facility]eAutoSS Neutrophils/Leukocyte s Auto (Bld) [Pure # fraction] 3.8 E9/L Normal 2.0 - 7.5 E9/L [facility] HEMATOLOGYOrdered By: Grover Miranda on 01-03-2023 Erythrocyte distribution width (RBC) [Ratio] 12.5 % Normal 10.9 - 14.2 % [facility]AutoSS Hematocrit (Bld) [Volume fraction] 39.8 % Normal 34.0 - 46.0 % [facility]eAutoSS Hemoglobin (Bld) [Mass/Vol] 14.2 g/dL Normal 12.0 - 16.0 gm/dL [facility] MCH (RBC) [Entitic mass] 31.7 pg Normal 27.0 - 34.0 pg [facility]AutoSS MCHC (RBC) [Mass/Vol] 35.6 g/dL Normal 31.4 - 36.0 gm/dL [facility]eAutoSS MCV (RBC) [Entitic vol] 89.0 fL Normal 80.0 - 100.0 fL [facility]eAutoSS Platelet mean volume (Bld) [Entitic vol] 7.6 fL Normal 6.4 - 10.8 fL [facility]eAutoSS Platelets (Bld) [#/Vol] 170.0 E9/L Normal 150.0 - 500.0 E9/L [facility]eAutoSS RBC (Bld) [#/Vol] 4.5 E12/L Normal 4.3 - 5.9 E12/L [facility]eAutoSS WBC corrected for nucl RBC Auto (Bld) [#/Vol] 5.8 E9/L Normal 4.0 - 11.0 E9/L [facility] HemeAutoSS UA With Cult Reflexon 2022 Bilirubin Ql (U) 1+ Abnormal Negative [facility] Comment on above: Performed By: #### 1 [id number] #### [facility] [address] [place] [address] Clarity (U) CLEAR Normal Clear [facility] Comment on above: Performed By: #### 1 [id number] #### [facility] [address] [place] [address] Color (U) YELLOW Normal Yellow [facility] Comment on above: Performed By: #### 1 [id number] #### [facility] [address] [place] [address] Epithelial cells.squamous LM.HPF (Urine sed) [#/Area] 3-4 Normal 0-2 [facility] Comment on above: Performed By: #### 1 [id number] #### [facility] [address] [place] [address] Glucose Test strip (U) [Mass/Vol] Negative Normal Negative [facility] Comment on above: Performed By: #### 1 [id number] #### [facility] [address] [place] [address] Hemoglobin Ql (U) 2+ Abnormal Negative [facility] Comment on above: Performed By: #### 1 [id number] #### [facility] [address] [place] [address] Ketones (U) [Mass/Vol] 2+ Abnormal Negative [facility] Comment on above: Performed By: #### 1 [id number] #### [facility] [address] [place] [address] Omega.plasma/Lithiu m.RBC (Bld) [Mass ratio] 0-3 Normal 0-3 [facility] Comment on above: Performed By: #### 1 [id number] #### [facility] [address] [place] [address] Mucus Ql (Urine sed) 2+ Normal [facility] Comment on above: Performed By: #### 1 [id number] #### [facility] [address] [place] [address] Nitrite Ql (U) Negative Normal Negative [facility] Comment on above: Performed By: #### 1 [id number] #### [facility] [address] [place] [address] pH (U) 6.0 [pH] Invalid Interpretation Code 5.0-9.0 [facility] Comment on above: Performed By: #### 1 [id number] #### [facility] [address] [place] [address] Protein (U) [Mass/Vol] 1+ Abnormal Negative [facility] Comment on above: Performed By: #### 1 [id number] #### [facility] [address] [place] [address] Specific gravity (U) [Rel density] >=1.030 Invalid Interpretation Code 1.005-1.030 [facility] Comment on above: Performed By: #### 1 [id number] #### [facility] [address] [place] [address] Type of Urine collection method Clean Catch Normal [facility] Comment on above: Performed By: #### 1 [id number] #### [facility] [address] [place] [address] Urobilinogen Qn (U) 1.0 {Maggy'U}/dL Normal 0.0-1.0 [facility] Comment on above: Performed By: #### 1 [id number] #### [facility] [address] [place] [address] WBC Auto Ql (U) Negative Normal Negative [facility] Comment on above: Performed By: #### 1 [id number] #### [facility] [address] [place] [address] WBC LM.HPF (Urine sed) [#/Area] 0-5 Normal 0-5 [facility] Comment on above: Performed By: #### 1 [id number] #### [facility] [address] [place] [address] URINALYSISOrdered By: Dianne Ortiz on 01-03-2023 Bilirubin Ql (U) 1+ *ABN* (01/03/23 5:04 PM) Invalid Interpretation Code Negative [facility] UA Auto SS Clarity (U) Clear (01/03/23 5:04 PM) Normal Clear [facility] UA Auto SS Color (U) Yellow (01/03/23 5:04 PM) Normal Yellow [facility] UA Auto SS Epithelial cells.squamous LM.HPF (Urine sed) [#/Area] 3-4 /HPF Normal 0-2/HPF [facility] UA Aut o SS Glucose Test strip (U) [Mass/Vol] Negative (01/03/23 5:04 PM) Normal Negative [facility] UA Auto SS Hemoglobin Ql (U) 2+ *ABN* (01/03/23 5:04 PM) Invalid Interpretation Code Negative [facility] UA Auto SS Ketones (U) [Mass/Vol] 2+ *ABN* (01/03/23 5:04 PM) Invalid Interpretation Code Negative [facility] UA Auto SS Omega.plasma/Lithiu m.RBC (Bld) [Mass ratio] 0-3 /HPF Normal 0-3/HPF [facility] UA Auto SS Mucus Ql (Urine sed) 2+ (01/03/23 5:04 PM) Normal [facility] UA Auto SS Nitrite Ql (U) Negative (01/03/23 5:04 PM) Normal Negative [facility] UA Auto SS pH (U) 6.0 *NA* (01/03/23 5:04 PM) Invalid Interpretation Code 5.0 - 9.0 [facility] UA Auto SS Protein (U) [Mass/Vol] 1+ *ABN* (01/03/23 5:04 PM) Invalid Interpretation Code Negative [facility] UA Auto SS Specific gravity (U) [Rel density] >=1.030 *NA* (01/03/23 5:04 PM) Invalid Interpretation Code 1.005 - 1.030 [facility] UA Auto SS UA Spec Desc Clean Catch (01/03/23 5:04 PM) Normal [facility] UA Auto SS Urobilinogen Qn (U) 1.7420488 {Maggy'U}/dL Normal 0.0 - 1.0 EU/dL [facility] UA Auto SS WBC Auto Ql (U) Negative (01/03/23 5:04 PM) Normal Negative [facility] UA Auto SS WBC LM.HPF (Urine sed) [#/Area] 0-5 /HPF Normal 0-5/HPF [facility] UA Auto SS eGFRon 01-03-2023 GFR/1.73 sq M.predicted among non-blacks MDRD (S/P/Bld) [Vol rate/Area] 133 mL/min/1.73 m2 Normal >=59 [facility] Comment on above: Order Comment: Order added by Discern Expert. Result Comment: Insulation Supervisor diya kidney disease could be indicated at eGFR's of less than 60 mL/min/1.73m2. Kidney failure is indicated at less than 15 mL/min/1.73m2. Performed By: #### 2 [id number] #### [facility] [address] [place] [address] CULTURE URINEon 01-10-2022 CULTURE URINE Culture Observations: MODERATE GROWTH OF MIXED GENITAL RIC. NO POTENTIAL PATHOGENS SEEN. Normal [facility] Comment on above: Performed By: #### U RCX #### [facility] [address] [place] [address] Dr. Narciso Amaral UA (CLEAN/CATCH) MOTORBOAT MECHANIC HELPER/MICRO I F IND.on 01-10-2022 Bilirubin Ql (U) Negative Normal NEGATIVE [facility] Comment on above: Performed By: #### U MICRO, UACSIND #### [facility] [address] [place] [address] Dr. Narciso Amaral Clarity (U) CLEAR Normal CLEAR [facility] Comment on above: Performed By: #### U MICRO, UACSIND #### [facility] [address] [place] [address] Dr. Narciso Amaral Color (U) LT. YELLOW Normal YELLOW [facility] Comment on above: Performed By: #### U MICRO, UACSIND #### [facility] [address] [place] [address] Dr. Narciso Amaral Glucose Ql (U) Negative Normal NEGATIVE [facility] Comment on above: Performed By: #### U MICRO, UACSIND #### [facility] [address] [address] [address] Narciso Amaral Hemoglobin Ql (U) LARGE Abnormal NEGATIVE [facility] Comment on above: Performed By: #### U MICRO, UACSIND #### [facility] [address] [address] [address] Narciso Amaral Ketones Ql (U) Negative Normal NEGATIVE [facility] Comment on above: Performed By: #### U MICRO, UACSIND #### [facility] [address] [address] [address] Narciso Amaral LEUKOCYTES TRACE Abnormal NEGATIVE [facility] Comment on above: Performed By: #### U MICRO, UACSIND #### [facility] [address] [place] [address] Dr. Narciso Amaral Nitrite Ql (U) Negative Normal NEGATIVE [facility] Comment on above: Performed By: #### U MICRO, UACSIND #### [facility] [address] [place] [address] Dr. Narciso Amaral pH (U) 6.0 [pH] Normal 5-9 [facility] Comment on above: Performed By: #### U MICRO, UACSIND #### [facility] [address] [place] [address] Dr. Narciso Amaral SPEC GRAVITY <=1.005 Abnormal 1.005-<=1.025 [facility] Comment on above: Performed By: #### U MICRO, UACSIND #### [facility] [address] [place] [address] Dr. Narciso Amaral UA PROTEIN Negative Normal NEGATIVE/ TRACE [facility] Comment on above: Performed By: #### U MICRO, UACSIND #### [facility] [address] [address] [address] Narciso Amaral UR MICRO IND INDICATED Normal [facility] Comment on above: Performed By: #### U MICRO, UACSIND #### [facility] [address] [address] [address] Narciso Amaral Urobilinogen Qn (U) 0.2 {Maggy'U}/dL Normal 0.2 - 1. 0 [facility] Comment on above: Performed By: #### U MICRO, UACSIND #### [facility] [address] [address] [address] Narciso Amaral URINE MICROSCOPIC ONLYon BACTERIA SMALL Abnormal NONE SEEN [facility] Comment on above: Performed By: #### U MICRO, UACSIND #### [facility] [address] [address] [address] Narciso Amaral Bacteria identified Cx Nom (U) INDICATED Normal [facility] Comment on above: Performed By: #### U MICRO, UACSIND #### [facility] [address] [place] [address] Dr. Narciso Amaral CAST NONE SEEN Normal NONE SEEN [facility] Comment on above: Performed By: #### U MICRO, UACSIND #### [facility] [address] [place] [address] Dr. Narciso Amaral Crystals LM Nom (Urine sed) NONE SEEN Normal NONE SEEN [facility] Comment on above: Performed By: #### U MICRO, UACSIND #### [facility] [address] [place] [address] Dr. Narciso Amaral Epithelial cells LM Ql (Urine sed) FEW Abnormal NONE SEEN /RARE [facility] Comment on above: Performed By: #### U MICRO, UACSIND #### [facility] [address] [place] [address] Dr. Narciso Amaral MUCOUS NONE SEEN Normal NONE SEEN [facility] Comment on above: Performed By: #### U MICRO, UACSIND #### [facility] [address] [address] [address] Narciso Amaral RBC 5-10 Abnormal 0-2 [facility] Comment on above: Performed By: #### U MICRO, UACSIND #### [facility] [address] [place] [address] Dr. Narciso Amaral WBC 0-2 Abnormal NONE SEEN [facility] Comment on above: Performed By: #### U MICRO, UACSIND #### [facility] [address] [place] [address] Dr. Narciso Amaral CBC AUTO DIFFon 01-09-2022 BASO # 0.0 103/ul Normal 0.0-0.1 [facility] Comment on above: Performed By: #### C BC #### [facility] [address] [place] [address] Dr. Narciso Amaral Basophils/100 WBC (Bld) 0.2 % Normal 0.2-2.0 [facility] Comment on above: Performed By: #### C BC #### [facility] [address] [place] [address] Dr. Narciso Amaral EO # 0.0 103/ul Normal 0.0-0.7 [facility] Comment on above: Performed By: #### C BC #### [facility] [address] [place] [address] Dr. Narciso Amaral Eosinophils/100 WBC (Bld) 0.1 % Critically low 0.9-7.0 [facility] Comment on above: Performed By: #### C BC #### [facility] [address] [place] [address] Dr. Narciso Amaral Erythrocyte distribution width (RBC) [Ratio] 12.8 % Normal 11.0-15.0 [facility] Comment on above: Performed By: #### C BC #### [facility] [address] [place] [address] Dr. Narciso Amaral Hematocrit (Bld) [Volume fraction] 30.8 % Critically low 36.0-48.0 [facility] Comment on above: Performed By: #### C BC #### [facility] [address] [place] [address] Dr. Narciso Amaral Hemoglobin (Bld) [Mass/Vol] 10.0 g/dL Critically low 12.0-16.0 [facility] Comment on above: Performed By: #### C BC #### [facility] [address] [place] [address] Dr. Narciso Amaral IG # 0.02 10e3/ul Normal 0.00-0.03 [facility] Comment on above: Performed By: #### C BC #### [facility] [address] [place] [address] Dr. Narciso Amaral IG % 0.2 % Normal 0.0-0.5 [facility] Comment on above: Performed By: #### C BC #### [facility] [address] [place] [address] Dr. Narciso Amaral LYMPH # 1.4 103/ul Normal 1.2-3.8 [facility] Comment on above: Performed By: #### C BC #### [facility] [address] [place] [address] Dr. Narciso Amaral Lymphocytes/100 WBC (Bld) 14.0 % Critically low 20.5-60.0 [facility] Comment on above: Performed By: #### C BC #### [facility] [address] [place] [address] Dr. Narciso Amaral MANUAL DIFF REQ NO Normal [facility] Comment on above: Performed By: #### C BC #### [facility] [address] [place] [address] Dr. Narciso Amaral MCH (RBC) [Entitic mass] 31.7 pg Normal 26.7-34.0 [facility] Comment on above: Performed By: #### C BC #### [facility] [address] [place] [address] Dr. Narciso Amaral MCHC (RBC) [Mass/Vol] 32.5 g/dL Normal 29.9-35.2 [facility] Comment on above: Performed By: #### C BC #### [facility] [address] [place] [address] Dr. Narciso Amaral MCV (RBC) [Entitic vol] 97.8 fL Normal 81.0-99.0 [facility] Comment on above: Performed By: #### C BC #### [facility] [address] [place] [address] Dr. Narciso Amaral MONO # 0.8 103/ul Normal 0.3-0.8 [facility] Comment on above: Performed By: #### C BC #### [facility] [address] [address] [address] Narciso Amaral Monocytes/100 WBC (Bld) 8.2 % Normal 1.7-12.0 [facility] Comment on above: Performed By: #### C BC #### [facility] [address] [address] [address] Narciso Amaral NEUT # 7.9 103/ul Critically high 1.4-6.5 [facility] Comment on above: Performed By: #### C BC #### [facility] [address] [address] [address] Narciso Amaral Neutrophils/100 WBC (Bld) 77.3 % Critically high 43.0-75.0 [facility] Comment on above: Performed By: #### C BC #### [facility] [address] [place] [address] Dr. Narciso Amaral Platelet mean volume (Bld) [Entitic vol] 9.9 fL Normal 9.5-13.5 [facility] Comment on above: Performed By: #### C BC #### [facility] [address] [place] [address] Dr. Narciso Amaral PLT 143 103/ul Critically low 150-450 [facility] Comment on above: Performed By: #### C BC #### [facility] [address] [place] [address] Dr. Narciso Amaral RBC 3.15 106/ul Critically low 4.20-5.40 [facility] Comment on above: Performed By: #### C BC #### [facility] [address] [place] [address] Dr. Narciso Amaral WBC 10.2 103/ul Normal 4.0-11.0 [facility] Comment on above: Performed By: #### C BC #### [facility] [address] [place] [address] Dr. Narciso Amaral CBC AUTO DIFFon 01-08-2022 BASO # 0.0 103/ul Normal 0.0-0.1 [facility] Comment on above: Performed By: #### C BC #### [facility] [address] [address] [address] Narciso Amaral Basophils/100 WBC (Bld) 0.3 % Normal 0.2-2.0 [facility] Comment on above: Performed By: #### C BC #### [facility] [address] [address] [address] Narciso Amaral EO # 0.0 103/ul Normal 0.0-0.7 [facility] Comment on above: Performed By: #### C BC #### [facility] [address] [place] [address] Dr. Narciso Amaral Eosinophils/100 WBC (Bld) 0.4 % Critically low 0.9-7.0 [facility] Comment on above: Performed By: #### C BC #### [facility] [address] [place] [address] Dr. Narciso Amaral Erythrocyte distribution width (RBC) [Ratio] 12.7 % Normal 11.0-15.0 [facility] Comment on above: Performed By: #### C BC #### [facility] [address] [place] [address] Dr. Narciso Amaral Hematocrit (Bld) [Volume fraction] 38.0 % Normal 36.0-48.0 [facility] Comment on above: Performed By: #### C BC #### [facility] [address] [place] [address] Dr. Narciso Amaral Hemoglobin (Bld) [Mass/Vol] 12.5 g/dL Normal 12.0-16.0 [facility] Comment on above: Performed By: #### C BC #### [facility] [address] [place] [address] Dr. Narciso Amaral IG # 0.03 10e3/ul Normal 0.00-0.03 [facility] Comment on above: Performed By: #### C BC #### [facility] [address] [place] [address] Dr. Narciso Amaral IG % 0.4 % Normal 0.0-0.5 [facility] Comment on above: Performed By: #### C BC #### [facility] [address] [place] [address] Dr. Narciso Amaral LYMPH # 1.3 103/ul Normal 1.2-3.8 [facility] Comment on above: Performed By: #### C BC #### [facility] [address] [place] [address] Dr. Narciso Amaral Lymphocytes/100 WBC (Bld) 17.6 % Critically low 20.5-60.0 [facility] Comment on above: Performed By: #### C BC #### [facility] [address] [place] [address] Dr. Narciso Amaral MANUAL DIFF REQ NO Normal [facility] Comment on above: Performed By: #### C BC #### [facility] [address] [place] [address] Dr. Narciso Amaral MCH (RBC) [Entitic mass] 31.6 pg Normal 26.7-34.0 [facility] Comment on above: Performed By: #### C BC #### [facility] [address] [place] [address] Dr. Narciso Amaral MCHC (RBC) [Mass/Vol] 32.9 g/dL Normal 29.9-35.2 [facility] Comment on above: Performed By: #### C BC #### [facility] [address] [place] [address] Dr. Narciso Amaral MCV (RBC) [Entitic vol] 96.0 fL Normal 81.0-99.0 [facility] Comment on above: Performed By: #### C BC #### [facility] [address] [place] [address] Dr. Narciso Amaral MONO # 0.5 103/ul Normal 0.3-0.8 [facility] Comment on above: Performed By: #### C BC #### [facility] [address] [place] [address] Dr. Narciso Amaral Monocytes/100 WBC (Bld) 6.2 % Normal 1.7-12.0 [facility] Comment on above: Performed By: #### C BC #### [facility] [address] [place] [address] Dr. Narciso Amaral NEUT # 5.5 103/ul Normal 1.4-6.5 [facility] Comment on above: Performed By: #### C BC #### [facility] [address] [place] [address] Dr. Narciso Amaral Neutrophils/100 WBC (Bld) 75.1 % Critically high 43.0-75.0 [facility] Comment on above: Performed By: #### C BC #### [facility] [address] [place] [address] Dr. Narciso Amaral Platelet mean volume (Bld) [Entitic vol] 10.3 fL Normal 9.5-13.5 [facility] Comment on above: Performed By: #### C BC #### [facility] [address] [place] [address] Dr. Narciso Amaral PLT 159 103/ul Normal 150-450 [facility] Comment on above: Performed By: #### C BC #### [facility] [address] [place] [address] Dr. Narciso Amaral RBC 3.96 106/ul Critically low 4.20-5.40 [facility] Comment on above: Performed By: #### C BC #### [facility] [address] [place] [address] Dr. Narciso Amaral WBC 7.4 103/ul Normal 4.0-11.0 [facility] Comment on above: Performed By: #### C BC #### [facility] [address] [place] [address] Dr. Narciso Amaral Covid-19 PCR ([facility])on 12-25 SARS-CoV-2 (COVID-19) RNA MOHAN+probe Ql (Unsp spec) Not detected Normal NOT DETECTED [facility] Comment on above: Result Comment: When diagnostic testing is negative, the possibility of a false negative should be considered in the context of a patient's recent exposures and the presence of clinical signs and symptoms consistent with SARS-CoV-2. This test is not yet approved or cleared by the [place] FDA. When there are no FDA-approved or cleared tests available, and other criteria are met, FDA can make tests available under an emergency access mechanism called an Emergency Use Authorization (EUA). The EUA for this test is supported by the [place] Coordinator of Health and Human Service's declaration that circumstances exist to justify the emergency use of in vitro diagnostics for the detection and/or diagnosis of the virus that causes COVID-19. This EUA will remain in effect for the duration of the COVID-19 declaration justifying emergency of IVDs, unless it is terminated or revoked by the FDA (after which the test may no longer be used). Performed By: #### C VDTBH #### [facility] [address] [place] [address] Dr. Narciso Amaral DRUG SCREEN RAPID (URINE)on 01-08-2022 AMP Negative Normal NEGATIVE [facility] Comment on above: Performed By: #### C T/NGNA #### [facility] [address] [place] [address] Dr. Narciso Amaral BAR Negative Normal NEGATIVE [facility] Comment on above: Performed By: #### C T/NGNA #### [facility] [address] [place] [address] Dr. Narciso Amaral BUP Negative Normal NEGATIVE [facility] Comment on above: Performed By: #### C T/NGNA #### [facility] [address] [place] [address] Dr. Narciso Amaral BZO Negative Normal NEGATIVE [facility] Comment on above: Performed By: #### C T/NGNA #### [facility] [address] [place] [address] Dr. Narciso Amaral TREY Negative Normal NEGATIVE [facility] Comment on above: Performed By: #### C T/NGNA #### [facility] [address] [place] [address] Dr. Narciso Amaral CUT-OFFS SEE BELOW Normal [facility] Comment on above: Result Comment: AMP (Amphetamine): 500ng/mL, BAR (Barbituates): 200 ng/mL, BZO (Benzodiazepines): 150 ng/mL, BUP (Buprenorphine): 10 ng/mL, TREY (Cocaine): 150 ng/mL, mAMP (Methamphetamine): 500 ng/mL, MTD (Methadone): 200 ng/mL, OPI (Opiates): 100 ng/mL, OXY (Oxycodone): 100 ng/mL, PCP (Phencyclidine): 25 ng/mL, PPX (Propoxyphene): 300 ng/mL, THC (Cannabinoids): 50 ng/mL, TCA (Trycyclic Antidepressants): 300 ng/mL Performed By: #### C T/NGNA #### [facility] [address] [place] [address] Dr. Narciso Amaral DRUG CUT HEADER DRUG CLASS TEST SYSTEM CUT-OFF CONCENTRATIONS ARE FOLLOWS: Normal [facility] Comment on above: Performed By: #### C T/NGNA #### [facility] [address] [place] [address] Dr. Narciso Amaral mAMP Negative Normal NEGATIVE [facility] Comment on above: Performed By: #### C T/NGNA #### [facility] [address] [place] [address] Dr. Narciso Amaral MTD Negative Normal NEGATIVE [facility] Comment on above: Performed By: #### C T/NGNA #### [facility] [address] [place] [address] Dr. Narciso Amaral OPI Negative Normal NEGATIVE [facility] Comment on above: Performed By: #### C T/NGNA #### [facility] [address] [place] [address] Dr. Narciso Amaral OXY Negative Normal NEGATIVE [facility] Comment on above: Performed By: #### C T/NGNA #### [facility] [address] [place] [address] Dr. Narciso Amaral PCP Negative Normal NEGATIVE [facility] Comment on above: Performed By: #### C T/NGNA #### [facility] [address] [place] [address] Dr. Narciso Amaral PPX Negative Normal NEGATIVE [facility] Comment on above: Performed By: #### C T/NGNA #### [facility] [address] [place] [address] Dr. Narciso Amaral TCA Negative Normal NEGATIVE [facility] Comment on above: Performed By: #### C T/NGNA #### [facility] [address] [address] [address] Narciso Amaral THC Negative Normal NEGATIVE [facility] Comment on above: Performed By: #### C T/NGNA #### [facility] [address] [address] [address] Narciso Amaral TYPE AND SCREENon 01-08-2022 TYPE AND SCREEN Negative Normal [facility] Comment on above: Performed By: #### C T/NGNA #### [facility] [address] [address] [address] Narciso Amaral US PREG BIOPHY W NON STRESSo n 01-07-2022 US PREG BIOPHY W NON STRESS EXAMINATION: US PREG BIOPHY W NON STRESS HISTORY: Oligohydramnios COMPARISON: No relevant comparison available. TECHNIQUE: Ultrasound biophysical profile was performed. FINDINGS: BREATHING MOVEMENTS: 2.0 GROSS BODY MOVEMENTS: 2.0 TONE: 2.0 QUALITATIVE AMNIOTIC FLUID VOLUME: 2.0 PRESENTATION: CEPHALIC HEART RATE: Present-per technologist; rate not recorded AMNIOTIC FLUID VOLUME: 6.1 cm GESTATIONAL AGE: 38 weeks 4 days CONCLUSION: 1. Total biophysical profile score 8.0. 2. Oligohydramnios. Electronically authenticated by: KRISTINA ESTRADA Date: 2022-01-07 16:20 Normal [facility] US PREG BIOPHY W NON STRESSo n 12-31-2021 US PREG BIOPHY W NON STRESS EXAMINATION: US PREG BIOPHY W NON STRESS HISTORY: Small for gestational age fetus COMPARISON: Ultrasound biophysical 12/25/2021 TECHNIQUE: Ultrasound biophysical profile was performed. FINDINGS: BREATHING MOVEMENTS: 2.0 GROSS BODY MOVEMENTS: 2.0 TONE: 2.0 QUALITATIVE AMNIOTIC FLUID VOLUME: 2.0 PRESENTATION: CEPHALIC HEART RATE: 139.2 bpm bpm. AMNIOTIC FLUID VOLUME: 9.0 cm GESTATIONAL AGE: 37 weeks 4 days CONCLUSION: 1. Total biophysical profile score 8.0. 2. Stable, mildly dilated renal pelvis bilaterally. Electronically authenticated by: KRISTINA ESTRADA Date: 2021-12-31 16:27 Normal [facility] VAGINITIS/VAGINOSIS DNA PROB Julius 12-26-2021 Fany species Negative Normal Negative [facility] Comment on above: Performed By: #### C BC #### [facility] [address] [address] [address] Narciso Amaral Gardnerella vaginalis Negative Normal Negative [facility] Comment on above: Performed By: #### C BC #### [facility] [address] [address] [address] Narciso Amaral Trichomonas vaginalis Negative Normal Negative [facility] Comment on above: Performed By: #### C BC #### [facility] [address] [address] [address] Narciso Amaral US PREG BIOPHY W NON STRESSo n 12-25-2021 US PREG BIOPHY W NON STRESS EXAMINATION: US PREG BIOPHY W NON STRESS HISTORY: Oligohydramnios COMPARISON: Ultrasound biophysical 12/24/2021 TECHNIQUE: Ultrasound biophysical profile was performed. FINDINGS: BREATHING MOVEMENTS: 2.0 GROSS BODY MOVEMENTS: 2.0 TONE: 2.0 QUALITATIVE AMNIOTIC FLUID VOLUME: 2.0 PRESENTATION: Cephalic HEART RATE: 124.4 bpm bpm. AMNIOTIC FLUID VOLUME: 9.0 cm GESTATIONAL AGE: 36 weeks 5 days CONCLUSION: 1. Total biophysical profile score 8.0. 2. Mildly dilated renal pelvis bilaterally, 7 mm on right and left. Electronically authenticated by: KRISTINA ESTRADA Date: 2021-12-25 09:13 Normal [facility] GROUP B STREP CULTUREon 11-26 S. agalactiae Ag Ql (Unsp spec) Culture Observations: NEGATIVE FOR GROUP B STREPTOCOCCUS. Normal [facility] Comment on above: Performed By: #### C T/NGNA #### [facility] [address] [address] [address] Narciso Amaral US PREG GROWTHon 12-24-2021 US PREG GROWTH Ultrasound biophysical profile Ultrasound obstetrical, limited CLINICAL: Oligohydramnios follow-up. TECHNIQUE: Transabdominal obstetrical ultrasound was performed. Ultrasound biophysical profile was also performed by accounts receivable assistant. FINDINGS: 09/29/2021. FETUS AND PLACENTA: There is a single living intrauterine fetus in vertex presentation with heart rate of 139 beats per minute. There is mild pelviectasis bilaterally with the the renal pelves measure between 5.5 mm and 6.5 mm. AMNIOTIC FLUID: Amniotic fluid index is 6.02 cm, with maximum vertical pocket of 2.60 cm. This was seen on the ultrasound 12/24/2021 at 9:13 AM. On the follow-up ultrasound 12/24/2021 at 12:00 PM, amniotic fluid index is 9.78 cm with maximum vertical fluid pocket at 3.81 cm. BIOMETRY: Biparietal diameter (BPD): 8.65 cm, gestational age of 34 weeks 6 days, Hadlock 18% Head circumference (HC): 31.70 cm, gestational age of 35 weeks 4 days, Hadlock 8% Abdominal circumference (AC): 30.90 cm, gestational age of 34 weeks 6 days, Hadlock 16% Femur length (FL): 6.84 cm, gestational age of 35 weeks 1 day, Hadlock 14% Head circumference to abdominal circumference ratio (HC:AC): 1.03 Femur length to biparietal diameter ratio (FL:BPD): 79% Femur length to abdominal circumference ratio (FL:AC): 22% ULTRASOUND GESTATIONAL AGE AND ESTIMATED DATE OF CONFINEMENT: The estimated gestational age by ultrasound is 35 weeks 1 day with an estimated date of confinement by the ultrasound of 01/27/2022. ESTIMATED WEIGHT: 2570 g +/- 386 g (5 lbs. 11 oz. +/- 14 ounces). Estimated weight is 16% of expected weight based on clinical gestational age according to Hadlock criteria. BIOPHYSICAL PROFILE: motion: 2 out of 2. tone: 2 out of 2. breathin out of 2. Amniotic fluid volume: 2 out of 2. Total score: 8 out of 8. IMPRESSION: 1. Single intrauterine fetus in vertex presentation with heart rate of 139 beats per minute. There is bilateral pelviectasis, with the renal pelves measuring between 5.5 mm and 6.5 mm, just below criteria for hydronephrosis. Recommend follow-up. 2. Estimated gestational age by ultrasound is 35 weeks 1 day with an estimated date of confinement by ultrasound of 01/27/2022. Provided clinical gestational age is 36 weeks 4 days. 3. Amniotic fluid index of 6.02 with maximum vertical pocket of 2.60 on the earlier study at 9:13 AM 12/24/2021. Follow-up examination performed on the same day at 12:00 PM demonstrates increased amniotic fluid index to 9.78 cm with maximum vertical fluid pocket at 3.81 cm. 4. Total biophysical profile score of 8 out of 8. 5. Estimated weight is 2570 g +/- 386 g (5 lbs. 11 oz. +/- 14 ounces). Estimated weight is 16% of expected weight based on clinical gestational age according to Hadlock criteria. Remarks: Raise Drill Operator reports that Dr. Watkins is aware of findings. Electronically authenticated by: AMPARO PATEL Date: 2021-12-24 12:27 Normal [facility] CBCon 10-28-2021 Hematocrit (Bld) [Volume fraction] 35.7 % Low 36 - 46 % [facility] Hemoglobin (Bld) [Mass/Vol] 11.9 g/dL Low 12.0 - 16.0 g/dL [facility] Interpretation and review of laboratory results Abnormal [facility] MCH (RBC) [Entitic mass] 32.8 pg 26 - 34 pg [facility] MCHC (RBC) [Mass/Vol] 33.4 g/dL 31 - 37 g/dL B ON [facility] MCV (RBC) [Entitic vol] 98.1 fL 80 - 100 fL [facility] Platelet distribution width (Bld) [Ratio] 12.1 % 12.1 - 15.2 % [facility] Platelets (Bld) [#/Vol] 178 10*3/uL [facility] RBC (Bld) [#/Vol] 3.64 10*6/uL Low 4.0 - 5.2 m/uL [facility] WBC (Bld) [#/Vol] 7.6 10*3/uL [facility] Glucose tolerance, 1 houron 10-28-2021 GLU ADMN Glucola [facility] Glucose tolerance screen 50g 134 mg/dL 70 - 135 mg/dL [facility] US PREG INCOMPLETE ANATOMYon 09-29-2021 US PREG INCOMPLETE ANATOMY EXAMINATION: US PREG INCOMPLETE ANATOMY HISTORY: screening COMPARISON: 09/01/2021 FINDINGS: position: Cephalic presentation, longitudinal lie Heart rate: 148 bpm Normal anatomy: Spine visualized, the posterior skin line cannot be seen likely related to position Gestational age: 24 weeks 2 days IMPRESSION: Normal spine, posterior skin line not definitively seen Electronically authenticated by: GREG RODNEY Date: 2021-09-29 08:50 Normal [facility] US PREG ANATOMY SINGLEon US PREG ANATOMY SINGLE EXAMINATION: US PREG ANATOMY SINGLE HISTORY: screening COMPARISON: No relevant comparison available. TECHNIQUE: Transabdominal sonographic examination was performed for obstetrical and evaluation. FINDINGS: Number: 1 Heart Rate: 144.0 bpm H.B. /min Amniotic Fluid Volume: Subjectively normal Placental Location: ANTERIOR with lower margin 6.3 cm from os. Cervix Length: 4 cm , closed ANATOMY: Normal Structures -cerebellum, choroid plexus, cisterna magna, lateral cerebral ventricles, orbits, midline falx, hard palate, four-chamber heart, RVOT, LVOT, stomach, kidneys, bladder, umbilical cord insertion into abdomen, three-vessel cord, right upper extremity, left upper extremity, right lower extremity, left lower extremity. SUBOPTIMALLY SEEN: Spine ABNORMALITIES: None BIOMETRY: BPD: 4.6 cm 19 weeks 6 days HC: 17.3 cm 19 weeks 6 days AC: 14.7 cm 20 weeks 0 days FL: 3.1 cm 19 weeks 4 days EFW:311.0 grams; 19% FL/AC: 21.0 FL/BPD: 67.0 HC/AC: 1.2 GESTATIONAL AGE: Age by EDC: 20 weeks 2 days ELOY by EDC: 01/17/2022 Age by current US: 19 weeks 6 days ELOY by current US: 01/20/2022 IMPRESSION: 1. Single live intrauterine with growth detailed above. 2. Slightly suboptimal visualization of the spine due to movement. No appreciable abnormality. Electronically authenticated by: KRISTINA ESTRADA Date: 2021-09-01 16:26 Normal [facility] AFP MATERNAL FOR SPINA BIFID Aon 08-25-2021 AFP MoM 0.71 Normal [facility] Comment on above: Performed By: #### C BC #### [facility] [address] [place] [address] Dr. Narciso Amaral AFP Value 45.2 ng/mL Normal [facility] Comment on above: Performed By: #### C BC #### [facility] [address] [address] [address] Narciso Amaral AFP, Serum for Spina Bifida Report Normal [facility] Comment on above: Performed By: #### C BC #### [facility] [address] [address] [address] Narciso Amaral Comment Comment Normal [facility] Comment on above: Result Comment: Ky Magallon, Ph.D., [facility] Director . References: Available Upon Request. . Multiples Of Median Cutoffs For AFP Elevations Bernstein 2.5 Black 2.8 IDD 2.0 Twins 4.5 Abbreviation Definitions IDD - Insulin Dep Diabetes OSBR - Open Spina Bifida Risk . For further inquiries contact [employer] at [phone]. Performed By: #### C BC #### [facility] [address] [address] [address] Narciso Echevarria Age Collection Date 19.0 weeks Normal [facility] Comment on above: Performed By: #### C BC #### [facility] [address] [address] [address] Narciso Amaral Gestat, Age Based on LMP Normal [facility] Comment on above: Result Comment: Reca lculations are not recommended when gestational dating by LMP and ultrasound are within 10 days. Performed By: #### C BC #### [facility] [address] [address] [address] Narciso Amaral Insulin Dep Diabetes No Normal [facility] Comment on above: Performed By: #### C BC #### [facility] [address] [address] [address] Narciso Amaral Interpretation Comment Normal [facility] Comment on above: Result Comment: Inte rpretation: Screen Negative . This result is screen negative for OSB. The AFP MoM calculated is based on the gestational age provided. MS-AFP can identify up to 80% of open neural tube defects. Closed neural tube defects and some open defects may not be detected by this test. This test does not screen for Down Syndrome or Trisomy 18. If screening for Down Syndrome or Trisomy 18 is desired, contact [employer] to discuss available options. The [employer] recommends amniocentesis be offered to women age 35 and older. Performed By: #### C BC #### [facility] [address] [address] [address] Narciso Amaral [age] Normal [facility] Comment on above: Performed By: #### C BC #### [facility] [address] [address] [address] Narciso Amaral Multiple Gestation No Normal [facility] Comment on above: Performed By: #### C BC #### [facility] [address] [address] [address] Narciso Amaral OSBR Risk 1 [place] [id number] [facility] Comment on above: Performed By: #### C BC #### [facility] [address] [place] [address] Dr. Narciso Amaral PDF . [facility] Comment on above: Performed By: #### C BC #### [facility] [address] [address] [address] Narciso Amaral Race [facility] Comment on above: Performed By: #### C BC #### [facility] [address] [place] [address] Dr. Narciso Amaral Test Results: Negative [facility] Comment on above: Performed By: #### C BC #### [facility] [address] [place] [address] Dr. Narciso Amaral PAP ACOG PANEL 2: 21 to 29on 08-23-2021 . . [facility] Comment on above: Performed By: #### C BC #### [facility] [address] [place] [address] Dr. Narciso Amaral Age Gdln ACOG Testing - [facility] Comment on above: Performed By: #### C BC #### [facility] [address] [place] [address] Dr. Narciso Amaral DIAGNOSIS: Comment [facility] Comment on above: Result Comment: NEGA TIVE FOR INTRAEPITHELIAL LESION OR MALIGNANCY. Performed By: #### C BC #### [facility] [address] [place] [address] Dr. Narciso Amaral Methodology: Comment Normal [facility] Comment on above: Result Comment: This liquid based ThinPrep(R) pap test was screened with the use of an image guided system. Performed By: #### C BC #### [facility] [address] [place] [address] Dr. Narciso Amaral Note: Comment Normal [facility] Comment on above: Result Comment: The Pap smear is a screening test designed to aid in the detection of premalignant and malignant conditions of the uterine cervix. It is not a diagnostic procedure and should not be used as the sole means of detecting cervical cancer. Both false-positive and false-negative reports do occur. . Performed By: #### C BC #### [facility] [address] [place] [address] Dr. Narciso Amaral Performed by: Comment Normal [facility] Comment on above: Result Comment: [employer] Aerotriangulation Specialist (ASCP) Performed By: #### C BC #### [facility] [address] [place] [address] Dr. Narciso Amaral Reflex Criteria: Comment Normal [facility] Comment on above: Result Comment: The HPV DNA reflex criteria were not met with this specimen result therefore, no HPV testing was performed. . Performed By: #### C BC #### [facility] [address] [place] [address] Dr. Narciso Amaral Specimen adequacy: Comment Normal [facility] Comment on above: Result Comment: Sati sfactory for evaluation. No endocervical component is identified. Performed By: #### C BC #### [facility] [address] [place] [address] Dr. Narciso Amaral CHLAMYDIA/GONOCOCCUS MOHAN (SW AB/URINE/PAPon 08-21-2021 Chlamydia trachomatis, MOHAN Negative Normal Negative [facility] Comment on above: Performed By: #### C T/NGNA #### [facility] [address] [place] [address] Dr. Narciso Amaral Neisseria gonorrhoeae, MOHAN Negative Normal Negative [facility] Comment on above: Performed By: #### C T/NGNA #### [facility] [address] [place] [address] Dr. Narciso Amaral HEP B SURFACE ANTIGEN SCREEN on 07-04-2021 HBsAg Screen Negative Normal Negative [facility] Comment on above: Performed By: #### N BOX #### [facility] [address] [place] [address] Dr. Narciso Amaral HEPATITIS C VIRUS AB W/ REFL EX QUANTon 07-04-2021 HCV AB <0.1 Normal 0.0-0.9 [facility] Comment on above: Performed By: #### C BC #### [facility] [address] [place] [address] Dr. Narciso Amaral Interpretation: Comment Normal [facility] Comment on above: Result Comment: Nega tive Not infected with HCV, unless recent infection is suspected or other evidence exists to indicate HCV infection. Performed By: #### C BC #### [facility] [address] [place] [address] Dr. Narciso Amaral HIV 1 AND 2 WITH REFLEXon HIV Screen 4th Generation wRfx Non-Reactive Normal Non Reactive [facility] Comment on above: Result Comment: HIV Negative HIV-1/HIV-2 antibodies and HIV-1 p24 antigen were NOT detected. There is no laboratory evidence of HIV infection. Performed By: #### N BOX #### [facility] [address] [place] [address] Dr. Narciso Amaral RPR QUANTon 07-04-2021 Rapid Plasma Reagin, Quant Non-Reactive Normal NonRea<1:1 [facility] Comment on above: Performed By: #### C BC #### [facility] [address] [place] [address] Dr. Narciso Amaral RUBELLA AB IGGon 07-04-2021 Rubella Antibodies, IgG <0.90 Critically low Immune >0.99 [facility] Comment on above: Result Comment: Non- immune <0.90 Equivocal 0.90 - 0.99 Immune >0.99 Performed By: #### R UBIGG #### [facility] [address] [place] [address] Dr. Narciso Amaral CBC AUTO DIFFon 07-03-2021 BASO # 0.0 103/ul Normal 0.0-0.1 [facility] Comment on above: Performed By: #### C BC #### [facility] [address] [address] [address] Narciso Amaral Basophils/100 WBC (Bld) 0.4 % Normal 0.2-2.0 [facility] Comment on above: Performed By: #### C BC #### [facility] [address] [address] [address] Narciso Amaral EO # 0.0 103/ul Normal 0.0-0.7 [facility] Comment on above: Performed By: #### C BC #### [facility] [address] [address] [address] Narciso Amaral Eosinophils/100 WBC (Bld) 0.4 % Critically low 0.9-7.0 [facility] Comment on above: Performed By: #### C BC #### [facility] [address] [address] [address] Narciso Amaral Erythrocyte distribution width (RBC) [Ratio] 11.9 % Normal 11.0-15.0 [facility] Comment on above: Performed By: #### C BC #### [facility] [address] [address] [address] Narciso Amaral Hematocrit (Bld) [Volume fraction] 33.0 % Critically low 36.0-48.0 [facility] Comment on above: Performed By: #### C BC #### [facility] [address] [address] [address] Narciso Amaral Hemoglobin (Bld) [Mass/Vol] 11.3 g/dL Critically low 12.0-16.0 [facility] Comment on above: Performed By: #### C BC #### [facility] [address] [address] [address] Narciso Amaral IG # 0.01 10e3/ul Normal 0.00-0.03 [facility] Comment on above: Performed By: #### C BC #### [facility] [address] [place] [address] Dr. Narciso Amaral IG % 0.2 % Normal 0.0-0.5 [facility] Comment on above: Performed By: #### C BC #### [facility] [address] [place] [address] Dr. Narciso Amaral LYMPH # 1.9 103/ul Normal 1.2-3.8 [facility] Comment on above: Performed By: #### C BC #### [facility] [address] [place] [address] Dr. Narciso Amaral Lymphocytes/100 WBC (Bld) 35.9 % Normal 20.5-60.0 [facility] Comment on above: Performed By: #### C BC #### [facility] [address] [place] [address] Dr. Narciso Amaral MANUAL DIFF REQ NO Normal [facility] Comment on above: Performed By: #### C BC #### [facility] [address] [place] [address] Dr. Narciso Amaral MCH (RBC) [Entitic mass] 31.6 pg Normal 26.7-34.0 [facility] Comment on above: Performed By: #### C BC #### [facility] [address] [place] [address] Dr. Narciso Amaral MCHC (RBC) [Mass/Vol] 34.2 g/dL Normal 29.9-35.2 [facility] Comment on above: Performed By: #### C BC #### [facility] [address] [place] [address] Dr. Narciso Amaral MCV (RBC) [Entitic vol] 92.2 fL Normal 81.0-99.0 [facility] Comment on above: Performed By: #### C BC #### [facility] [address] [place] [address] Dr. Narciso Amaral MONO # 0.2 103/ul Critically low 0.3-0.8 [facility] Comment on above: Performed By: #### C BC #### [facility] [address] [place] [address] Dr. Narciso Amaral Monocytes/100 WBC (Bld) 4.2 % Normal 1.7-12.0 [facility] Comment on above: Performed By: #### C BC #### [facility] [address] [place] [address] Dr. Narciso Amaral NEUT # 3.1 103/ul Normal 1.4-6.5 [facility] Comment on above: Performed By: #### C BC #### [facility] [address] [place] [address] Dr. Narciso Amaral Neutrophils/100 WBC (Bld) 58.9 % Normal 43.0-75.0 [facility] Comment on above: Performed By: #### C BC #### [facility] [address] [place] [address] Dr. Narciso Amaral Platelet mean volume (Bld) [Entitic vol] 10.4 fL Normal 9.5-13.5 [facility] Comment on above: Performed By: #### C BC #### [facility] [address] [place] [address] Dr. Narciso Amaral PLT 158 103/ul Normal 150-450 [facility] Comment on above: Performed By: #### C BC #### [facility] [address] [place] [address] Dr. Narciso Amaral RBC 3.58 106/ul Critically low 4.20-5.40 [facility] Comment on above: Performed By: #### C BC #### [facility] [address] [place] [address] Dr. Narciso Amaral WBC 5.2 103/ul Normal 4.0-11.0 [facility] Comment on above: Performed By: #### C BC #### [facility] [address] [place] [address] Dr. Narciso Amaral CULTURE URINEon 07-03-2021 CULTURE URINE Culture Observations: No growth Normal [facility] Comment on above: Performed By: #### U RCX #### [facility] [address] [place] [address] Dr. Narciso Amaral GLYCOHEMOGLOBIN A1Con 2021 ADA RECOMMENDATION ADA THERAPEUTIC TARGET 6.0 - 7.0 ACTION SUGGESTED > 7.0 Normal [facility] Comment on above: Performed By: #### N BOX #### [facility] [address] [place] [address] Dr. Narciso Amaral Glucose [Mass/Vol] 88 mg/dL Normal [facility] Comment on above: Performed By: #### N BOX #### [facility] [address] [place] [address] Dr. Narciso Amaral HbA1c (Bld) [Mass fraction] 4.7 % Normal <=6.0 [facility] Comment on above: Performed By: #### N BOX #### [facility] [address] [place] [address] Dr. Narciso Amaral BERNADINE BOX TEST PT SEND OUTo n 07-03-2021 SENT TO REF LAB 07/03/2021 Normal [facility] Comment on above: Performed By: #### N BOX #### [facility] [address] [place] [address] Dr. Narciso Amaral TYPE AND SCREENon 07-03-2021 TYPE AND SCREEN Negative Normal [facility] Comment on above: Performed By: #### C T/NGNA #### [facility] [address] [place] [address] Dr. Narciso Amaral CBC AUTO DIFFon 06-17-2021 BASO # 0.0 103/ul Normal 0.0-0.1 [facility] Comment on above: Performed By: #### N BOX #### [facility] [address] [place] [address] Dr. Narciso Amaral Basophils/100 WBC (Bld) 0.4 % Normal 0.2-2.0 [facility] Comment on above: Performed By: #### N BOX #### [facility] [address] [place] [address] Dr. Narciso Amaral EO # 0.0 103/ul Normal 0.0-0.7 [facility] Comment on above: Performed By: #### N BOX #### [facility] [address] [place] [address] Dr. Narciso Amaral Eosinophils/100 WBC (Bld) 0.0 % Critically low 0.9-7.0 [facility] Comment on above: Performed By: #### N BOX #### [facility] [address] [place] [address] Dr. Narciso Amaral Erythrocyte distribution width (RBC) [Ratio] 11.6 % Normal 11.0-15.0 [facility] Comment on above: Performed By: #### N BOX #### [facility] [address] [place] [address] Dr. Narciso Amaral Hematocrit (Bld) [Volume fraction] 42.6 % Normal 36.0-48.0 [facility] Comment on above: Performed By: #### N BOX #### [facility] [address] [place] [address] Dr. Narciso Amaral Hemoglobin (Bld) [Mass/Vol] 14.9 g/dL Normal 12.0-16.0 [facility] Comment on above: Performed By: #### N BOX #### [facility] [address] [place] [address] Dr. Narciso Amaral IG # 0.02 10e3/ul Normal 0.00-0.03 [facility] Comment on above: Performed By: #### N BOX #### [facility] [address] [place] [address] Dr. Narciso Amaral IG % 0.3 % Normal 0.0-0.5 [facility] Comment on above: Performed By: #### N BOX #### [facility] [address] [place] [address] Dr. Narciso Amaral LYMPH # 2.1 103/ul Normal 1.2-3.8 [facility] Comment on above: Performed By: #### N BOX #### [facility] [address] [place] [address] Dr. Narciso Amaral Lymphocytes/100 WBC (Bld) 28.8 % Normal 20.5-60.0 [facility] Comment on above: Performed By: #### N BOX #### [facility] [address] [place] [address] Dr. Narciso Amaral MANUAL DIFF REQ NO Normal [facility] Comment on above: Performed By: #### N BOX #### [facility] [address] [place] [address] Dr. Narciso Amaral MCH (RBC) [Entitic mass] 31.6 pg Normal 26.7-34.0 [facility] Comment on above: Performed By: #### N BOX #### [facility] [address] [place] [address] Dr. Narciso Amaral MCHC (RBC) [Mass/Vol] 35.0 g/dL Normal 29.9-35.2 [facility] Comment on above: Performed By: #### N BOX #### [facility] [address] [place] [address] Dr. Narciso Amaral MCV (RBC) [Entitic vol] 90.4 fL Normal 81.0-99.0 [facility] Comment on above: Performed By: #### N BOX #### [facility] [address] [place] [address] Dr. Narciso Amaral MONO # 0.3 103/ul Normal 0.3-0.8 [facility] Comment on above: Performed By: #### N BOX #### [facility] [address] [place] [address] Dr. Narciso Amaral Monocytes/100 WBC (Bld) 4.6 % Normal 1.7-12.0 [facility] Comment on above: Performed By: #### N BOX #### [facility] [address] [place] [address] Dr. Narciso Amaral NEUT # 4.7 103/ul Normal 1.4-6.5 [facility] Comment on above: Performed By: #### N BOX #### [facility] [address] [place] [address] Dr. Narciso Amaral Neutrophils/100 WBC (Bld) 65.9 % Normal 43.0-75.0 [facility] Comment on above: Performed By: #### N BOX #### [facility] [address] [place] [address] Dr. Narciso Amaral Platelet mean volume (Bld) [Entitic vol] 9.7 fL Normal 9.5-13.5 [facility] Comment on above: Performed By: #### N BOX #### [facility] [address] [place] [address] Dr. Narciso Amaral PLT 199 103/ul Normal 150-450 [facility] Comment on above: Performed By: #### N BOX #### [facility] [address] [place] [address] Dr. Narciso Amaral RBC 4.71 106/ul Normal 4.20-5.40 [facility] Comment on above: Performed By: #### N BOX #### [facility] [address] [place] [address] Dr. Narciso Amaral WBC 7.1 103/ul Normal 4.0-11.0 [facility] Comment on above: Performed By: #### N BOX #### [facility] [address] [place] [address] Dr. Narciso Amaral ER URINE PROFILEon 2 Bilirubin Ql (U) Negative Normal NEGATIVE [facility] Comment on above: Performed By: #### E RUR #### [facility] [address] [place] [address] Dr. Narciso Amaral Clarity (U) SL CLOUDY Abnormal CLEAR [facility] Comment on above: Performed By: #### E RUR #### [facility] [address] [place] [address] Dr. Narciso Amaral Color (U) YELLOW Normal YELLOW [facility] Comment on above: Performed By: #### E RUR #### [facility] [address] [place] [address] Dr. Narciso Amaral ERUAHD A micrscopic examination will be performed if indicated. Normal [facility] Comment on above: Performed By: #### E RUR #### [facility] [address] [place] [address] Dr. Narciso Amaral Glucose Ql (U) Negative Normal NEGATIVE [facility] Comment on above: Performed By: #### E RUR #### [facility] [address] [place] [address] Dr. Narciso Amaral Hemoglobin Ql (U) Negative Normal NEGATIVE [facility] Comment on above: Performed By: #### E RUR #### [facility] [address] [place] [address] Dr. Narciso Amaral Ketones Ql (U) >=80 Abnormal NEGATIVE [facility] Comment on above: Performed By: #### E RUR #### [facility] [address] [place] [address] Dr. Narciso Amaral LEUKOCYTES Negative Normal NEGATIVE [facility] Comment on above: Performed By: #### E RUR #### [facility] [address] [place] [address] Dr. Narciso Amaral Nitrite Ql (U) Negative Normal NEGATIVE [facility] Comment on above: Performed By: #### E RUR #### [facility] [address] [place] [address] Dr. Narciso Amaral pH (U) 6.0 [pH] Normal 5-9 [facility] Comment on above: Performed By: #### E RUR #### [facility] [address] [place] [address] Dr. Narciso Amaral SPEC GRAVITY >=1.030 Abnormal 1.005-<=1.025 [facility] Comment on above: Performed By: #### E RUR #### [facility] [address] [place] [address] Dr. Narciso Amaral UA PROTEIN TRACE Normal NEGATIVE/ TRACE [facility] Comment on above: Performed By: #### E RUR #### [facility] [address] [place] [address] Dr. Narciso Amaral UR MICRO IND NOT INDICATED Normal [facility] Comment on above: Performed By: #### E RUR #### [facility] [address] [place] [address] Dr. Narciso Amaral Urobilinogen Qn (U) 1.0 {Maggy'U}/dL Normal 0.2 - 1. 0 [facility] Comment on above: Performed By: #### E RUR #### [facility] [address] [place] [address] Dr. Narciso Amaral PROF 14(COMP METB)on 022 Albumin [Mass/Vol] 4.6 g/dL Normal 3.5-5.0 [facility] Comment on above: Performed By: #### C BC #### [facility] [address] [place] [address] Dr. Narciso Amaral Albumin/Globulin [Mass ratio] 1.0 {ratio} Normal [facility] Comment on above: Performed By: #### C BC #### [facility] [address] [place] [address] Dr. Narciso Amaral ALP [Catalytic activity/Vol] 54 U/L Normal 38-126 [facility] Comment on above: Performed By: #### C BC #### [facility] [address] [place] [address] Dr. Narciso Amaral ALT [Catalytic activity/Vol] 12 U/L Normal 9-52 [facility] Comment on above: Performed By: #### C BC #### [facility] [address] [place] [address] Dr. Narciso Amaral Anion gap [Moles/Vol] 14.8 mmol/L Normal [facility] Comment on above: Performed By: #### C BC #### [facility] [address] [place] [address] Dr. Narciso Amaral AST [Catalytic activity/Vol] 11 U/L Critically low 14-36 [facility] Comment on above: Performed By: #### C BC #### [facility] [address] [place] [address] Dr. Narciso Amaral Bilirubin [Mass/Vol] 0.9 mg/dL Normal 0.2-1.3 [facility] Comment on above: Performed By: #### C BC #### [facility] [address] [place] [address] Dr. Narciso Amaral Calcium [Mass/Vol] 9.6 mg/dL Normal 8.4-10.2 [facility] Comment on above: Performed By: #### C BC #### [facility] [address] [place] [address] Dr. Narciso Amaral Chloride [Moles/Vol] 98 mmol/L Normal 98-107 [facility] Comment on above: Performed By: #### C BC #### [facility] [address] [address] [address] Narciso Amaral CO2 [Moles/Vol] 27.3 mmol/L Normal 22.0-30.0 [facility] Comment on above: Performed By: #### C BC #### [facility] [address] [address] [address] Narciso Amaral Creatinine [Mass/Vol] 0.55 mg/dL Normal 0.52-1.04 [facility] Comment on above: Performed By: #### C BC #### [facility] [address] [place] [address] Dr. Narciso Amaral EGFR-AF LAO >60 Normal >=60 [facility] Comment on above: Performed By: #### C BC #### [facility] [address] [place] [address] Dr. Narciso Amaral EGFR-NON AF LAO >60 Normal >=60 [facility] Comment on above: Performed By: #### C BC #### [facility] [address] [place] [address] Dr. Narciso Amaral Globulin (S) [Mass/Vol] 4.7 g/dL Normal [facility] Comment on above: Performed By: #### C BC #### [facility] [address] [place] [address] Dr. Narciso Amaral Glucose [Mass/Vol] 87 mg/dL Normal 74-106 [facility] Comment on above: Performed By: #### C BC #### [facility] [address] [address] [address] Narciso Amaral Potassium [Moles/Vol] 3.1 mmol/L Critically low 3.4-5.0 [facility] Comment on above: Performed By: #### C BC #### [facility] [address] [place] [address] Dr. Narciso Amaral Protein [Mass/Vol] 9.3 g/dL Critically high 6.1-8.2 [facility] Comment on above: Performed By: #### C BC #### [facility] [address] [place], [place] [address] Dr. Narciso Amaral Sodium [Moles/Vol] 137 mmol/L Normal 137-145 [facility] Comment on above: Performed By: #### C BC #### [facility] [address] [place], [place] [address] Dr. Narciso Amaral Urea nitrogen [Mass/Vol] 11.0 mg/dL Normal 7.0-17.0 [facility] Comment on above: Performed By: #### C BC #### [facility] [address] [place], [place] [address] Dr. Narciso Amaral Urea nitrogen/Creatinine [Mass ratio] 20.0 mg/mg Normal [facility] Comment on above: Performed By: #### C BC #### [facility] [address] [place], [place] [address] Dr. Narciso Amaral US PREG TVon 06-17-2021 US PREG TV EXAMINATION: US PREG TV HISTORY: Missed period COMPARISON: No relevant comparison available. FINDINGS: GESTATIONAL SAC: Present and normal appearing. POLE: Present and normal appearing. YOLK SAC: Present. CARDIAC: Present. UTERUS: Normal size and appearance. OVARIES: Right: Normal. Left: Corpus lutein cyst CERVIX: 4.0 cm in length and closed. CUL-DE-SAC: Normal. OTHER: None. AGE BY LMP: 9 weeks, 3 days ELOY BY LMP: 01/17/2022 AGE BY US CRL: 9 weeks, 0 days ELOY BY US CRL: 01/20/2022 IMPRESSION: 1. Single live intrauterine . Electronically authenticated by: KRISTINA ESTRADA Date: 2021-06-17 17:29 Normal [facility] Vital Signs Date Time Vital Sign Value Performing Clinician Facility 01-03-2023 20:48-0400 Diastolic blood pressure 66 mm[Hg] Kemal Sharma [facility] 01-03-2023 20:48-0400 Heart rate 68 /min Kemal Sharma [facility] 01-03-2023 20:48-0400 Respiratory rate 18 /min Kemal Zachary [facility] 01-03-2023 20:48-0400 SaO2% (BldA) [Mass fraction] 99 % Kemal Zachary [facility] 01-03-2023 20:48-0400 Systolic blood pressure 110 mm[Hg] Kemal Zachary [facility] 01-03-2023 19:55-0400 Hourly Rounding Kemal Zachary [facility] 01-03-2023 19:53-0400 Diastolic blood pressure 71 mm[Hg] Kemal Zachary [facility] 01-03-2023 19:53-0400 Heart rate 70 /min Kemal Zachary [facility] 01-03-2023 19:53-0400 Respiratory rate 18 /min Ekmal Zachary [facility] 01-03-2023 19:53-0400 SaO2% (BldA) [Mass fraction] 99 % Kemal Zachary [facility] 01-03-2023 19:53-0400 Systolic blood pressure 106 mm[Hg] Kemal Zachary [facility] 01-03-2023 18:55-0400 Diastolic blood pressure 74 mm[Hg] Kemal Zachary [facility] 01-03-2023 18:55-0400 Heart rate 74 /min Kemal Zachary [facility] 01-03-2023 18:55-0400 Hourly Rounding Kemal Zachary [facility] 01-03-2023 18:55-0400 Respiratory rate 16 /min Kemal Zachary [facility] 01-03-2023 18:55-0400 SaO2% (BldA) [Mass fraction] 99 % Kemal Sharma [facility] 01-03-2023 18:55-0400 Systolic blood pressure 108 mm[Hg] Kemal Shrama [facility] 01-03-2023 17:55-0400 Hourly Rounding Kemaltaj Sharma [facility] 01-03-2023 17:55-0400 Promise to Return Kemal Sharma [facility] 01-03-2023 16:55-0400 Body temperature 98.06 [degF] Kemal Sharma [facility] 08-25-2021 20:06-0400 Body weight 51.[address] TONI WATKINS [facility] Comment on above: Performed By: #### CBC #### [facility] [address] [place] [address] Dr. Narciso Amaral Encounters Encounter Date Encounter Type Care Provider Facility Start: 05-06-2023 End: 05-06-2023 ambulatory TONI WATKINS Not Available Start: 04-28-2023 End: 04-29-2023 ambulatory LYDIA GALLO [facility] Start: 04-28-2023 End: 04-28-2023 Subsequent hospital visit by physician [facility] Start: 04-12-2023 End: 04-12-2023 ambulatory LYDIA GALLO Not Available Start: 03-08-2023 End: 03-08-2023 ambulatory TONI WATKINS Not Available Start: 01-03-2023 End: 01-03-2023 Emergency department patient visit Kemal Sharma Facility:[facility] Start: 01-03-2023 End: 01-03-2023 Emergency department patient visit Kemal Sharma [facility] Start: 01-21-[address] TONI WATKINS Facility : Start: 01-14-[address] TONI WATKINS Facility :[facility] Start: 01-08-2022 End: 01-11-2022 Evaluation and management of inpatient DR BLAKE HIGGINBOTHAM Facility:[facility] Start: 01-07-2022 End: 01-07-[address] BLAKE HIGGINBOTHAM Facility:[facility] Start: 12-31-2021 End: 12-31-[address] BLAKE HIGGINBOTHAM Facility:[facility] Start: 12-24-2021 End: 12-24-[address] TONI WATKINS Facility:[facility] Start: 12-24-2021 End: 12-25-[address] TONI WATKINS Facility:[facility] Start: 12-24-2021 End: 12-25-[address] TONI WATKINS Facility:[facility] Start: 10-28-2021 End: 10-28-2021 Subsequent hospital visit by physician [facility] Start: 10-17-[address] TONI WATKINS Facility :[facility] Start: 09-29-2021 End: 09-30-[address] JAIDA AKERS Facility:[facility] Start: 09-01-2021 End: 09-02-[address] TONI WATKINS Facility:[facility] Start: 08-21-2021 End: 08-22-[address] TONI WATKINS Facility:[facility] Start: 08-18-2021 End: 08-18-[address] TONI WATKINS Facility:[facility] Start: 07-03-2021 End: 07-04-[address] DOCTOR FLYNN Facility:[facility] Start: 06-26-2021 End: 06-27-[address] TONI WATKINS Facility:[facility] Start: 06-17-2021 End: 06-17-[address] DOCTOR FLYNN Facility:[facility] Start: 06-17-2021 End: 06-18-[address] DOCTOR FLYNN Facility:[facility] Procedures Date Procedure Procedure Detail Performing Clinician Start: 04-28-[address] gtt 3 specimens Lydia Gallo PA-C Work Phone: Start: 01-08-2022 Delivery of Products of Conception, External Approach DR TONI WATKINS Start: 01-08-2022 Drainage of Amniotic Fluid, Therapeutic from Products of Conception, Via Natural or Artificial Opening DR TONI WATKINS Start: 01-08-2022 Introduction of Othe r Hormone into Peripheral Vein, Percutaneous Approach DR TONI WATKINS Start: 01-08-2022 Repair Perineum Skin , External Approach DR TONI WATKINS Start: 10-28-2021 Blood count complete automated Blake Higginbotham Work Phone: prosthesis Left eye Kemal Daugherty Plan of Treatment Date Care Activity Detail Author Start: 05-31-2023 End: 05-31-2023 Patient encounter procedure 05/31/2023 12:30 PM EST Routine [facility] [address] [place] [address] [facility] Start: 05-04-2023 End: 05-04-2023 Patient encounter procedure 05/04/2023 1:30 PM EST Routine [facility] [address] [place] [address] [facility] Start: 11-24-2022 Influenza vaccination Flu vaccine (# 1) [facility] Start: 12-25-2021 Influenza vaccination Flu vaccine (# 1) [facility] Start: 2017 Screening for malign ant neoplasm of cervix Pap smear [facility] Start: 08-01-2015 DTaP/Tdap/Td vaccine (1 - Tdap) DTaP/Tdap/Td vaccine (1 - Tdap) [facility] Start: 2014 Hepatitis C screening Hepatitis C sc reen [facility] Start: 08-01-2011 HIV screening HIV screen [facility] Start: 2008 Depression Screen Depression Screen [facility] Start: 08-01-2007 HPV vaccine (1 - 2-d ose series) HPV vaccine (1 - 2-dose series) [facility] Start: 2001 COVID-19 Vaccine (1) COVID-19 Vaccin e (1) [facility] Start: 1997 Varicella vaccine (1 of 2 - 2-dose childhood series) Varicella vaccine (1 of 2 - 2-dose childhood series) [facility] Start: 01-30-1997 COVID-19 Vaccine (#1) COVID-19 Vacci ne (#1) [facility] Start: 1996 Hepatitis B vaccine (1 of 3 - 3-dose series) Hepatitis B vaccine (1 of 3 - 3-dose series) [facility] Payers Date Payer Category Payer Unknown 1996 Unknown [id number] 2.16.84 [id number] 1996 Unknown [id number] 2.16.84 [id number] 1996 Unknown [id number] 2.16.84 0.1.517505.3.579.2.593 1996 Unknown [id number] 2.16.84 0.1.621940.3.579.2.593 1996 Unknown [id number] 2.16.84 0.1.405790.3.579.2.593 1996 Unknown [id number] 2.16.84 0.1.854461.3.579.2.593 1996 Unknown [id number] 2.16.84 0.1.318183.3.579.2.593 1996 Unknown [id number] 2.16.84 0.1.404215.3.579.2.593 1996 Unknown [id number] 2.16.84 0.1.597819.3.579.2.593 1996 Unknown [id number] 2.16.84 0.1.302984.3.579.2.593 1996 Unknown [id number] 2.16.84 0.1.406914.3.579.2.593 1996 Unknown [id number] 2.16.84 0.1.165905.3.579.2.593 1996 Unknown [id number] 2.16.84 0.1.991875.3.579.2.593 1996 Unknown [id number] 2.16.84 0.1.067670.3.579.2.593 1996 Unknown [id number] 2.16.84 0.1.595943.3.579.2.593 1996 Unknown [id number] 2.16.84 0.1.025091.3.579.2.593 1996 Unknown [id number] 2.16.84 0.1.113969.3.579.2.593 1996 Unknown [id number] 2.16.8 40.1.045398.3.579.2.727 1996 Unknown [id number] 2.16.8 40.1.248457.3.579.2.174 1996 Unknown [id number] 2.16.84 0.1.109855.3.579.2.1259 1996 Unknown [id number] 2.16.840 .1.335965.3.579.2.1259 1996 Unknown [id number] 2.16.840. 1.036665.3.579.2.1259 1959 Self-pay [id number] 1959 Self-pay 1959 Unknown [id number] Unknown [id number] 2.16.84 0.1.735852.3.579.2.593 Social History Date Type Detail Facility Tobacco smoking status WAIS Tobacco smoking consumption unknown [employer] Phone: Start: 1996 Sex Assigned At Not on file [employer] Phone: Start: 04-05-2021 End: 04-07-2023 Tobacco smoking status Never smoked tobacco (finding) [facility] Tobacco smoking status Never [facility] Start: 04-20-2023 Sex Assigned At Female [facility] Start: 04-07-2023 Tobacco use and exposure Smokeless tobacco non-user [facility] Start: 04-20-2023 Alcohol intake Lifetime non-d jay (finding) [facility] Start: 04-20-2023 History of Social function [facility] Start: 11-12-2022 [facility] [place] NEGATED: Highlighted rowStart: NINF History of tobacco use Passive smoker [facility] Functional Status Date Assessment Result Facility 01-03-2023 Functional Status N/A [facility] Hospital Discharge instructions 01-03-2023 Note Date & Type Note Facility 01-03-2023 Hospital Discharg e instructions Patient Education 01/03/2023 20:50:05 Morning Sickness, Uiti-vl-Jwvz Morning Sickness Morning sickness is when you feel like you may vomit (feel nauseous) during . Sometimes, you may vomit. Morning sickness most often happens in the morning, but it can also happen at any time of the day. Some women may have morning sickness that makes them vomit all the time. This is a more serious problem that needs treatment. What are the causes? The cause of this condition is not known. What increases the risk? You had vomiting or a feeling like you may vomit before your . You had morning sickness in another . You are with more than one baby, such as twins. What are the signs or symptoms? Feeling like you may vomit. Vomiting. How is this treated? Treatment is usually not needed for this condition. You may only need to change what you eat. In some cases, your doctor may give you some things to take for your condition. These include: Vitamin B6 supplements. Medicines to treat the feeling that you may vomit. Carmen. Follow these instructions at home: Medicines Take gpla-vcw-gvwstyi and prescription medicines only as told by your doctor. Do not take any medicines until you talk with your doctor about them first. Take multivitamins before you get . These can stop or lessen the symptoms of morning sickness. Eating and drinking Eat dry toast or crackers before getting out of bed. Eat 5 or 6 small meals a day. Eat dry and bland foods like rice and baked potatoes. Do not eat greasy, fatty, or spicy foods. Have someone cook for you if the smell of food causes you to vomit or to feel like you may vomit. If you feel like you may vomit after taking vitamins, take them at night or with a snack. Eat protein foods when you need a snack. Nuts, yogurt, and cheese are good choices. Drink fluids throughout the day. Try carmen arnoldo made with real carmen, carmen tea made from fresh grated carmen, or carmen candies. General instructions Do not smoke or use any products that contain nicotine or tobacco. If you need help quitting, ask your doctor. Use an air purifier to keep the air in your house free of smells. Get lots of fresh air. Try to avoid smells that make you feel sick. Try wearing an acupressure wristband. This is a wristband that is used to treat seasickness. Try a treatment called acupuncture. In this treatment, a doctor puts needles into certain areas of your body to make you feel better. Contact a doctor if: You need medicine to feel better. You feel dizzy or light-headed. You are losing weight. Get help right away if: The feeling that you may vomit will not go away, or you cannot stop vomiting. You faint. You have very bad pain in your belly. Summary Morning sickness is when you feel like you may vomit (feel nauseous) during . You may feel sick in the morning, but you can feel this way at any time of the day. Making some changes to what you eat may help your symptoms go away. This information is not intended to replace advice given to you by your health care provider. Make sure you discuss any questions you have with your health care provider. Document Revised: 11/25/2020 Document Reviewed: 11/04/2020 [employer] Patient Education 2022 [email or web address]. Follow Up Care 01/03/2023 16:18:17 With:Toni WATKINS Address: [address] , [place] [address]- Business (1) When:01/06/2023 20:40:46 [facility] Evaluation + Plan note 01-03-2023 Note Date & Type Note Facility 01-03-2023 Evaluation + Plan note Extrac ida from: Title:ED Note Author:Velia Correa PA-C Jono e:01/03/23 Nausea/vomiting in (O21.9: Vomiting of , unspecified) Orders: Sodium Chloride 0.9% intravenous solution 1,000 mL, 1,000 mL, IV, bolus, STAT, Start date 01/03/23 19:42:00 EDT, Total volume (mL): 1,000, Bolus Dose: 1,000 mL, 48.1 kg, 1.48, m2 Sodium Chloride 0.9% intravenous solution 1,000 mL, 1,000 mL, IV, bolus, STAT, Start date 01/03/23 18:27:00 EDT, Total volume (mL): 1,000, Bolus Dose: 1,000 mL, 48.1 kg, 1.48, m2 Automated Diff Basic Metabolic Panel CBC w/ Auto Diff eGFR 27 old female presents to the ED with concerns for dehydration due to nausea and vomiting of . In the ED patient afebrile, vital signs are stable, no acute stress. Labs are reviewed noted, no concerning findings. No leukocytosis, kidney function within normal limits. Urinalysis shows no evidence of infection. Patient treated with 2 L IV fluids in the ED. On reexamination she is feeling much improved. Able to tolerate water without difficulty, no vomiting while in the ED. Patient educated on results and supportive care. States that she has Phenergan and Zofran at home for nausea ready. Patient discharged home with instructions to follow with [facility] and is to return to the ED with any new or worsening symptoms. Patient voices understanding is agreeable to plan [facility] Hospital course Narrative Note Date & Type Note Facility Hospital course Narrative No data available for this section [facility] Progress note Note Date & Type Note Facility Progress note No data available for this section [facility] Summary Purpose Family History No Family History Records FoundNo Family History Records FoundNo Family History Records FoundNo Family History Records Found Advance Directives No Advanced Directives Records FoundNo Advanced Directives Records FoundNo Advanced Directives Records FoundNo Advanced Directives Records Found Additional Source Comments INFORMATION SOURCE (unrecogn ized section and content) DATE CREATED AUTHOR 01/21/2022 [facility] DATE CREATED AUTHOR AUTHOR'S ORGANIZ ATION 01/07/2023 [facility] DATE CREATED AUTHOR AUTHOR'S ORGANIZ ATION 04/29/2023 [facility] DATE CREATED AUTHOR AUTHOR'S ORGANIZ ATION 05/07/2023 [facility] Patient Care team informatio n (unrecognized section and content) Personnel Name: Gloria CASTELLANOS CNP Address: Address: [address] [place] [address] Dr. Blake, [facility] FOR RECORDS PERTAINING TO PATIENTS WHO ARE OR HAVE BEEN ENROLLED IN A CHEMICAL DEPENDENCY/SUBSTANCEABUSE PROGRAM, SOME INFORMATION MAY BE OMITTED. This clinical summary was aggregated from multiple sources. Caution should be exercised in using it in the provision of clinical care. This summary normalizes information from multiple sources, and as a consequence, information in this document may materially change the coding, format and clinical context of patient data. In addition, data may be omitted in some cases. CLINICAL DECISIONS SHOULD BE BASED ON THE PRIMARY CLINICAL RECORDS. [facility] [employer] provides no warranty or guarantee of the accuracy or completeness of information in this document.
--- NOTE | 2023-05-31 09:52 | US_ITS ---
[address] [address] Patient Name: DOMINIK FRANCO MRN: [id number] date: 1995 Sex: F Assigned Patient Location: [facility] Current Patient Location: Accession/Order Number: [id number] Exam Date: 05/31/2023 10:00 Report Date: 05/31/2023 11:02 At the request of: TONI JOSHUA Procedure: US OB BPP w non-stress EXAMINATION: US OB BPP w non-stress, US OB cervical length HISTORY: Antepartum placenta circumvallate COMPARISON: No relevant comparison available. TECHNIQUE: Ultrasound biophysical profile was performed in the radiology department. non-reactive stress testing was performed by nursing staff in the birthing center. FINDINGS: BREATHING MOVEMENTS: 2.0 GROSS BODY MOVEMENTS: 2.0 TONE: 2.0 QUALITATIVE AMNIOTIC FLUID VOLUME: 2.0 PRESENTATION: CEPHALIC HEART RATE: 137.1 bpm H.B./min AMNIOTIC FLUID VOLUME: 12.1 cm cm GESTATIONAL AGE: 30 weeks 4 days Closed cervix measuring 3.0 cm in length CONCLUSION: Total biophysical profile score: 8.0 The cervix is closed measuring 3 cm Electronically authenticated by: GREG RODNEY Date: 05/31/2023 11:02
--- NOTE | 2023-05-31 09:57 | US_ITS ---
[address] [address] Patient Name: DOMINIK FRANCO MRN: [id number] date: 1995 Sex: F Assigned Patient Location: [facility] Current Patient Location: Accession/Order Number: [id number] Exam Date: 05/31/2023 10:00 Report Date: 05/31/2023 11:02 At the request of: TONI JOSHUA Procedure: US OB cervical length EXAMINATION: US OB BPP w non-stress, US OB cervical length HISTORY: Antepartum placenta circumvallate COMPARISON: No relevant comparison available. TECHNIQUE: Ultrasound biophysical profile was performed in the radiology department. non-reactive stress testing was performed by nursing staff in the birthing center. FINDINGS: BREATHING MOVEMENTS: 2.0 GROSS BODY MOVEMENTS: 2.0 TONE: 2.0 QUALITATIVE AMNIOTIC FLUID VOLUME: 2.0 PRESENTATION: CEPHALIC HEART RATE: 137.1 bpm H.B./min AMNIOTIC FLUID VOLUME: 12.1 cm cm GESTATIONAL AGE: 30 weeks 4 days Closed cervix measuring 3.0 cm in length CONCLUSION: Total biophysical profile score: 8.0 The cervix is closed measuring 3 cm Electronically authenticated by: GREG RODNEY Date: 05/31/2023 11:02
[2023-05-31 10:30] VITALS: BP 95/57; PULSE 90
--- OUTSIDE RECORDS SUMMARY | 2023-06-07 07:34 | XMS_ITS | CCD ---
Author Name Unknown Address [address] [place] [address] Organization [facility] Care Team Providers Care Probate Clerk Name Role Phone Unavailable Primary Care Provider Paula e TRES, DR MUÑOZ Consulting Unavailable TRES, [...] Unavailable KARASIK, DR GORE Consulting Unavailable REQUEST, DR NONE LISTED Primary Care [...] ZIEBER, DR KRISTINA Kelly Consulting Unavailable PATEL, AMPARO Consulting Unavailable TRES, DR MUÑOZ Attending Unavailable REQUEST, NONE LISTED Primary Care Unavaila ble TRES, DR MUÑOZ Admitting Unavailable MISC, DR RODRÍGUEZ Primary Care Unavailable TRES, DR MUÑOZ Admitting Unavailable TRES, DR MUÑOZ Consulting Unavailable REQUEST, NONE LISTED Referring Unavaila ble TRES, DR MUÑOZ Attending Unavailable TRES, DR MUÑOZ Attending Unavailable REQUEST, NONE LISTED Primary Care Unavaila ble TRES, DR MUÑOZ Admitting Unavailable Gloria CASTELLANOS Primary Care Physician [phone] Kemal Sharma Attending Unavailable Unavailable Primary Care Provider Unavailjarett e LYDIA GALLO Referring Unavailable TONI WATKINS Attending Unavailable LYDIA GALLO Attending Unavailable TRES, TONI Attending Unavailable LYDIA GALLO Attending Unavailable Unavailable Primary Care Provider Unavailabl e Allergies Allergy Classification Reported Allergen(s) Allergy Type Date of Onset Reaction(s) Facility (2 sources) Amoxicillin; Translations: [amoxicillin] Drug Allergy 2 [facility] Repository (3 sources) Amoxicillin; Translations: [amoxicillin] Drug Allergy 3 rash [facility] [place] (1 source) Penicillins Propensity to adverse reactions to drug 3 Rash [facility] (2 sources) Penicillins Drug Allergy 3 Rash, Unknown [facility] Medications Current Medications Medication Drug Class(es) Dates Sig (Normalized) Sig (Original) alpha-tocopherol acetate 30 unt / ascorbic acid 100 mg / beta carotene 1000 unt / calcium carbonate 200 mg / calcium pantothenate 7 mg / cholecalciferol 400 unt / docusate sodium 25 mg / ferrous fumarate 29 mg / folic acid 1 mg / niacinamide 15 mg / pyridoxine hydrochloride 20 mg / riboflavin 3 mg / thiamine 3 mg / vitamin b12 0.012 mg / zinc oxide 20 mg oral tablet (2 sources) Vitamin B12, Vitamin D, Vitamin C Vit-DSS-Fe Fum-FA ( 19) 29-1 MG tablet 1 (one) time each day at the same time. 0 Active VIT W/ FE BISG-FA PO (2 sources) take 1 tablet by mouth in the morning VIT W/ FE BISG-FA PO Take 1 tablet by mouth in the morning. 0 Active Vit-Fe Fumarate-FA ( VITAMINS PO) (1 source) take 1 tablet by mouth once daily Vit-Fe Fumarate-FA ( VITAMINS PO) Take 1 tablet by mouth daily 0 Active progesterone 200 mg oral capsule (5 sources) Progesterone Start: 04-07-2023 progesterone 200 MG capsule Insert 200 mg into the vagina 0 04/07/2023 Active progesterone (En dometrin) 100 MG vaginal insert Insert 100 mg into the vagina in the morning. 0 Active valACYclovir 1000 mg oral tablet (1 source) Herpesvirus Nucleoside Analog DNA Polymerase Inhibitor, Herpes Simplex Virus Nucleoside Analog DNA Polymerase Inhibitor, Herpes Zoster Virus Nucleoside Analog DNA Polymerase Inhibitor Start: 04-09-2020 valacyclovir 1 g Tab See Instructions, take 2 tab at first sign of cold sore repeat in 12 hours., # 16 tab(s), Refills(s) 1, Pharmacy: [id number], 168, cm, 04/09/20 15:23:00 EST, Height/Length Dosing, 50.7, kg, 04/09/20 15:23:00 EST, Weight Dosing Start Date: 04/09/20 Status: Ordered Zofran ODT 4 mg Tab-Dis (1 source) Start: 06-09-2021 take 1 tablet by mouth every six hours as needed for nausea Zofran ODT 4 mg Tab-Dis 4 mg = 1 tab(s), Oral, q6hr, PRN Nausea/Vomiting, # 12 tab(s), Refills(s) 0, Pharmacy: [facility], 165.1, cm, 06/09/21 2:43:00 EST, Height/Length Dosing, 49, kg, 06/09/21 2:43:00 EST, Weight Dosing Start Date: 06/09/21 Status: Ordered Problems Active Problems Problem Classification Problem Date Documented Date Episodic/Chronic Menstrual disorders (4 sources) Irregular menstruation, unspecified; Translations: [IRREGULAR MENSTRUATION UNSPECIFIED] Onset: 07-03-2021 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 (1 source) First degree perineal laceration during delivery; Translations: [FIRST DEG PERINEAL LAC DUR DELIV] Onset: 01-14-2022 Episodic Other complications of (5 sources) Maternal care for other known or suspected poor growth, third trimester, not applicable or unspecified; Translations: [MAT CARE OTH AR FTL GRTH 3RD TM UNS] Onset: 12-31-2021 [...] 12-24-2021 Episodic Other inflammatory condition of skin (3 sources) Guttate psoriasis; 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 Other nutritional; endocrine; and metabolic disorders (1 source) Body mass index less than 20 11-02-2019 Episodic Other and delivery including normal (10 sources) Single live ; Translations: [Encounter for supervision of other normal , first trimester] Onset: 06-18-2021 Episodic Other screening for suspected conditions (not mental disorders or infectious disease) (20 sources) Encounter for screening for Streptococcus B; Translations: [Encounter for other screening follow-up] Onset: 07-04-2021 Episodic Polyhydramnios and other problems of amniotic [...] Unclassified (2 sources) Patient encounter status 12-05-2018 Past or Other Problems Problem Classification Problem Date Documented Date Episodic/Chronic Diseases of mouth; excluding dental (3 sources) Aphthous ulcer of mouth; 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] Onset: 01-15-2023 11-02-2019 Episodic Immunizations and screening for infectious disease (3 sources) Encounter for screening for human papillomavirus (HPV); Translations: [Encounter for screening for infections with a predominantly sexual mode of transmission] Onset: 07-04-2021 Episodic Other complications of (4 sources) Mild hyperemesis gravidarum; Translations: [MILD HYPEREMESIS GRAVIDARUM] Onset: 06-17-2021 Episodic Other skin disorders (3 sources) Acne; Translations: [Acne, unspecified] Onset: 01-15-2023 12-05-2018 Episodic Residual codes; unclassified (1 source) 9 weeks gestation of ; Translations: [9 WEEKS GESTATION OF ] Onset: 06-19-2021 Episodic Viral infection (3 sources) Herpes labialis; Translations: [Herpesviral vesicular dermatitis] Onset: 01-15-2023 04-09-2020 Episodic Results Test Name Value Interpretation Reference Range Facility CBC with Auto Differentialon 04-28-2023 Basophils (Bld) [#/Vol] 0.03 10*3/uL [facility] Basophils/100 WBC (Bld) 1 % 0 - 2 % [facility] Eosinophils (Bld) [#/Vol] 0.04 10*3/uL [facility] Eosinophils/100 WBC (Bld) 1 % 0 - 5 % [facility] Erythrocyte distribution width (RBC) [Ratio] 11.8 % Low 12.1 - 15.2 % [facility] Hematocrit (Bld) [Volume fraction] 35.4 % Low 36.0 - 46.0 % [facility] Hemoglobin (Bld) [Mass/Vol] 11.9 g/dL Low 12.0 - 16.0 g/dL [facility] Immature granulocytes (Bld) [#/Vol] 0.04 10*3/uL [facility] Immature granulocytes/100 WBC (Bld) 1 % 0 - 5 % [facility] Interpretation and review of laboratory results Abnormal [facility] Lymphocytes/100 WBC (Bld) 24 % 15 - 40 % [facility] Lymphocytes/100 WBC (Bld) 1.53 % [facility] MCH (RBC) [Entitic mass] 32.9 pg 26.0 - 34.0 pg [facility] MCHC (RBC) [Mass/Vol] 33.6 g/dL 31.0 - 37.0 g/dL [facility] MCV (RBC) [Entitic vol] 97.8 fL 80.0 - 100.0 fL [facility] Monocytes/100 WBC (Bld) 6 % 4 - 8 % [facility] Monocytes/100 WBC (Bld) 0.41 % [facility] Neutrophils/100 WBC (Bld) 67 % 47 - 75 % [facility] Platelet mean volume (Bld) [Entitic vol] 9.5 fL 6.0 - 12.0 fL [facility] Platelets (Bld) [#/Vol] 155 10*3/uL [facility] RBC (Bld) [#/Vol] 3.62 10*6/uL Low 4.00 - 5.2 0 m/uL [facility] Segmented neutrophils/100 WBC (Bld) 4.37 % [facility] WBC other (Bld) [#/Vol] 6.4 [facility] CBC with Diffon 04-28-2023 Abs. Basophil 0.03 k/uL Normal 0.00-0.[address] [facility] Comment on above: Performed By: #### C DP, GLUSC #### [facility] [address] [place] [address] Supervisor Polishing: Greg Castillo MD Abs.Imm.Granulocyte 0.04 k/uL Normal 0.00-0.30 [facility] Comment on above: Performed By: #### C DP, GLUSC #### [facility] [address] [place] [address] Supervisor Polishing: Greg Castillo MD Abs.Neutrophil (Seg) 4.37 k/uL Normal 2.5-7.0 [facility] Comment on above: Performed By: #### C DP, GLUSC #### [facility] [address] [place] [address] Supervisor Polishing: Greg Castillo MD Basophils/100 WBC (Bld) 1 % Normal 0-2 [facility] Comment on above: Performed By: #### C DP, GLUSC #### [facility] [address] [place] [address] Supervisor Polishing: Greg Castillo MD Eosinophils (Bld) [#/Vol] 0.04 10*3/uL Normal 0.00-0.40 [facility] Comment on above: Performed By: #### C DP, GLUSC #### [facility] [address] [place] [phone] Supervisor Polishing: Greg Castillo MD Eosinophils/100 WBC (Bld) 1 % Normal 0-5 [facility] Comment on above: Performed By: #### C DP, GLUSC #### [facility] [address] [place] [address] Supervisor Polishing: Greg Castillo MD Erythrocyte distribution width (RBC) [Ratio] 11.8 % Low 12.1-15.2 [facility] Comment on above: Performed By: #### C DP, GLUSC #### [facility] [address] [place] [phone] Supervisor Polishing: Greg Castillo MD Hematocrit (Bld) [Volume fraction] 35.4 % Low 36.0-46.0 [facility] Comment on above: Performed By: #### C DP, GLUSC #### [facility] [address] [place] [address] Supervisor Polishing: Greg Castillo MD Hemoglobin (Bld) [Mass/Vol] 11.9 g/dL Low 12.0-16.0 [facility] Comment on above: Performed By: #### C DP, GLUSC #### [facility] [address] [place] [phone] Supervisor Polishing: Greg Castillo MD Immature granulocytes/100 WBC (Bld) 1 % Normal 0-5 [facility] Comment on above: Performed By: #### C DP, GLUSC #### [facility] [address] [place] [phone] Supervisor Polishing: Greg Castillo MD Lymphocytes (Bld) [#/Vol] 1.53 10*3/uL Normal 1.00-4.80 [facility] Comment on above: Performed By: #### C DP, GLUSC #### [facility] [address] [place] [address] Supervisor Polishing: Greg Castillo MD Lymphocytes/100 WBC (Bld) 24 % Normal 15-40 [facility] Comment on above: Performed By: #### C DP, GLUSC #### [facility] [address] [place] [phone] Supervisor Polishing: Greg Castillo MD MCH (RBC) [Entitic mass] 32.9 pg Normal 26.0-34.0 [facility] Comment on above: Performed By: #### C DP, GLUSC #### [facility] [address] [place] [address] Supervisor Polishing: Greg Castillo MD MCHC (RBC) [Mass/Vol] 33.6 g/dL Normal 31.0-37.0 [facility] Comment on above: Performed By: #### C DP, GLUSC #### [facility] [address] [place] [phone] Supervisor Polishing: Greg Castillo MD MCV (RBC) [Entitic vol] 97.8 fL Normal 80.0-100.0 [facility] Comment on above: Performed By: #### C DP, GLUSC #### [facility] [address] [place] [phone] Supervisor Polishing: Greg Castillo MD Monocytes (Bld) [#/Vol] 0.41 10*3/uL Normal 0.00-1.00 [facility] Comment on above: Performed By: #### C DP, GLUSC #### [facility] [address] [place] [phone] Supervisor Polishing: Greg Castillo MD Monocytes/100 WBC (Bld) 6 % Normal 4-8 [facility] Comment on above: Performed By: #### C DP, GLUSC #### [facility] [address] [place], [place] [phone] Supervisor Polishing: Greg Castillo MD Neutrophil (Seg) 67 % Normal 47-75 [facility] Comment on above: Performed By: #### C DP, GLUSC #### [facility] [address] [place], [place] [phone] Supervisor Polishing: Greg Castillo MD Platelet mean volume (Bld) [Entitic vol] 9.5 fL Normal 6.0-12.0 [facility] Comment on above: Performed By: #### C DP, GLUSC #### [facility] [address] [place] [address] Supervisor Polishing: Greg Castillo MD Platelets (Bld) [#/Vol] 155 10*3/uL Normal 140-450 [facility] Comment on above: Performed By: #### C DP, GLUSC #### [facility] [address] [place], [place] [phone] Supervisor Polishing: Greg Castillo MD RBC (Bld) [#/Vol] 3.62 10*6/uL Low 4.00-5.20 [facility] Comment on above: Performed By: #### C DP, GLUSC #### [facility] [address] [place], [place] [phone] Supervisor Polishing: Greg Castillo MD WBC (Bld) [#/Vol] 6.4 10*3/uL Normal 3.5-11.0 [facility] Comment on above: Performed By: #### C DP, GLUSC #### [facility] [address] [place], [place] [phone] Supervisor Polishing: Greg Castillo MD Glucose David Scr 50gon 2023 Glucose [Mass/Vol] 108 mg/dL Normal 70-135 [facility] Comment on above: Performed By: #### C DP, GLUSC #### [facility] [address] [place] [address] Supervisor Polishing: Greg Castillo MD Glu Administered via Glucola [facility] Comment on above: Performed By: #### C DP, GLUSC #### [facility] [address] [place] [address] Supervisor Polishing: Greg Castillo MD Glucose tolerance, 1 houron 04-28-2023 GLU ADMN Glucola [facility] Glucose 1 Hr post 50 g glucose PO [Mass/Vol] 108 mg/dL 70 - 135 mg/dL [facility] Discharge Instructionson Discharge Instructions [id number]#1.00CD:127 Normal [facility] Auto Diffon 01-03-2023 Basophils/100 WBC (Bld) 0.5 % Normal 0.0-2.0 [facility] Comment on above: Order Comment: Order Added by Discern Expert. Performed By: #### 2 133720, [id number], [id number], [id number] #### [facility] [address] [place] [address] Basophils/Leukocytes Auto (Bld) [Pure # fraction] 0.0 E9/L Normal 0.0-0.2 [facility] Comment on above: Order Comment: Order Added by Discern Expert. Performed By: #### 2 821802, 2265838, [id number], [id number] #### [facility] [address] [place] [address] Eosinophils/100 WBC (Bld) 0.3 % Normal 0.0-8.0 [facility] Comment on above: Order Comment: Order Added by Discern Expert. Performed By: #### 2 187953, 3458977, [id number], 0686842 #### [facility] [address] [place] [address] Eosinophils/Leukocyte s Auto (Bld) [Pure # fraction] 0.0 E9/L Normal 0.0-0.5 [facility] Comment on above: Order Comment: Order Added by Discern Expert. Performed By: #### 2 071604, 9293053, 12133893, 4161039 #### [facility] [address] [place] [address] Lymphocytes/100 WBC (Bld) 29.1 % Normal 14.0-50.0 [facility] Comment on above: Order Comment: Order Added by Discern Expert. Performed By: #### 2 031910, 1557382, [id number], 0676579 #### [facility] [address] [place] [address] Lymphocytes/Leukocyte s Auto (Bld) [Pure # fraction] 1.7 E9/L Normal 1.0-4.0 [facility] Comment on above: Order Comment: Order Added by Kya Expert. Performed By: #### 2 001477, 9799280, 82382527, [id number] #### [facility] [address] [place] [address] Monocytes/100 WBC (Bld) 5.1 % Normal 4.0-14.0 [facility] Comment on above: Order Comment: Order Added by Kya Expert. Performed By: #### 2 070664, 6079242, 36453795, 8394808 #### [facility] [address] [place] [address] Monocytes/Leukocytes Auto (Bld) [Pure # fraction] 0.3 E9/L Normal 0.2-1.0 [facility] Comment on above: Order Comment: Order Added by Discern Expert. Performed By: #### 2 175249, 8894256, 77435983, 8601391 #### [facility] [address] [place] [address] Neutrophils/100 WBC (Bld) 65.0 % Normal 36.0-75.0 [facility] Comment on above: Order Comment: Order Added by Kya Expert. Performed By: #### 2 841140, 0698203, [id number], 0413906 #### [facility] [address] [place] [address] Neutrophils/Leukocyte s Auto (Bld) [Pure # fraction] 3.8 E9/L Normal 2.0-7.5 [facility] Comment on above: Order Comment: Order Added by Discern Expert. Performed By: #### 2 547928, 8096393, 50058077, 0796568 #### [facility] [address] [place] [address] BMPon 01-03-2023 Creatinine [Mass/Vol] 0.5 mg/dL Normal 0.5-1.3 [facility] Comment on above: Performed By: #### 2 347640, 1837538, 70604163, 9945402 #### [facility] [address] [place] [address] Urea nitrogen [Mass/Vol] 8 mg/dL Normal 5-21 [facility] Comment on above: Performed By: #### 2 667239, 1631562, 79342861, 2072154 #### [facility] [address] [place] [address] Urea nitrogen/Creatinine [Mass ratio] 16 No Units Normal 10-20 [facility] Comment on above: Performed By: #### 2 692382, 5347964, 53330983, 1840287 #### [facility] [address] [place] [address] Anion gap [Moles/Vol] 7 mmol/L Normal 6-16 [facility] Comment on above: Performed By: #### 2 911015, 0401210, 87310037, 9846740 #### [facility] [address] [place] [address] Calcium [Mass/Vol] 9.3 mg/dL Normal 8.9-11.1 [facility] Comment on above: Performed By: #### 2 583726, 1299115, 78829642, 1347608 #### [facility] [address] [place] [address] Chloride [Moles/Vol] 105 mmol/L Normal 101-111 [facility] Comment on above: Performed By: #### 2 182007, 8482348, 90681359, 7739543 #### [facility] [address] [place] [address] CO2 [Moles/Vol] 24 mmol/L Normal 21-31 [facility] Comment on above: Performed By: #### 2 059539, 3308048, 79214517, 0568494 #### [facility] [address] [place] [address] Glucose [Mass/Vol] 108 mg/dL Normal 55-199 [facility] Comment on above: Result Comment: If t his glucose result represents a fasting glucose, interpretation should refer to the following reference range: 55-99 mg/dL Performed By: #### 2 416241, 8939244, 78706211, 1343132 #### [facility] [address] [place] [address] Potassium [Moles/Vol] 3.4 mmol/L Low 3.5-5.3 [facility] Comment on above: Performed By: #### 2 612873, 8351699, 55638199, 3960556 #### [facility] [address] [place] [address] Sodium [Moles/Vol] 133 mmol/L Low 135-145 [facility] Comment on above: Performed By: #### 2 534083, 6291989, 49691603, 3835483 #### [facility] [address] [place] [address] CBC w/ Auto Diffon 3 Erythrocyte distribution width (RBC) [Ratio] 12.5 % Normal 10.9-14.2 [facility] Comment on above: Performed By: #### 2 858718, 6655543, 84402415, 5782039 #### [facility] [address] [place] [address] Hematocrit (Bld) [Volume fraction] 39.8 % Normal 34.0-46.0 [facility] Comment on above: Performed By: #### 2 539818, 1126094, 96642904, 1613826 #### [facility] [address] [place] [address] Hemoglobin (Bld) [Mass/Vol] 14.2 g/dL Normal 12.0-16.0 [facility] Comment on above: Performed By: #### 2 926650, 6572062, 07639336, 3529954 #### [facility] [address] [place] [address] MCH (RBC) [Entitic mass] 31.7 pg Normal 27.0-34.0 [facility] Comment on above: Performed By: #### 2 966317, 5307024, 55115850, 3380919 #### [facility] [address] [place] [address] MCHC (RBC) [Mass/Vol] 35.6 g/dL Normal 31.4-36.0 [facility] Comment on above: Performed By: #### 2 259475, 0407062, 40181361, 6407672 #### [facility] [address] [place] [address] MCV (RBC) [Entitic vol] 89.0 fL Normal 80.0-100.0 [facility] Comment on above: Performed By: #### 2 290832, 7500502, 56503849, 3851900 #### [facility] [address] [place] [address] Platelet mean volume (Bld) [Entitic vol] 7.6 fL Normal 6.4-10.8 [facility] Comment on above: Performed By: #### 2 474115, 2395995, 83214187, 3661440 #### [facility] [address] [place] [address] Platelets (Bld) [#/Vol] 170.0 E9/L Normal 150.0-500.0 [facility] Comment on above: Performed By: #### 2 870987, 2586087, 88746107, 7773135 #### [facility] [address] [place] [address] RBC (Bld) [#/Vol] 4.5 E12/L Normal 4.3-5.9 [facility] Comment on above: Performed By: #### 2 324566, 5280445, 46791872, 4119606 #### [facility] [address] [place] [address] WBC corrected for nucl RBC Auto (Bld) [#/Vol] 5.8 E9/L Normal 4.0-11.0 [facility] Comment on above: Performed By: #### 2 981000, 7929656, 43304719, 3263037 #### [facility] [address] [place] [address] CHEMISTRYOrdered By: SYSTEM SYSTEM on 01-03-2023 Anion gap [Moles/Vol] 7 mmol/L Normal 6 - 16 mEq/L F [facility] Remisol Calcium [Mass/Vol] 9.3 mg/dL Normal 8.9 - 11. 1 mg/dL [facility] Remisol Chloride [Moles/Vol] 105 mmol/L Normal 101 - 1 11 mmol/L [facility] CO2 [Moles/Vol] 24 mmol/L Normal 21 - 31 mmol/L [facility] Creatinine [Mass/Vol] 0.5 mg/dL Normal 0.5 - 1.3 mg/dL [facility] Remisol GFR/1.73 sq M.predicted among non-blacks MDRD (S/P/Bld) [Vol rate/Area] 133 mL/min/1.73 m2 Normal >=59mL/min/1. 73 m2 [facility] Chem S Glucose [Mass/Vol] 108 mg/dL Normal 55 - 199 mg/dL [facility] Potassium [Moles/Vol] 3.4 mmol/L Low 3.5 - 5.3 mmol/L [facility] Sodium [Moles/Vol] 133 mmol/L Low 135 - 145 mmol/L [facility] Urea nitrogen [Mass/Vol] 8 mg/dL Normal 5 - 21 mg/dL [facility] Urea nitrogen/Creatinine [Mass ratio] 16 mg/mg Normal 10 - 20 [facility] Consent for Treatmenton 12-25 Consent for Treatment [id number] #[id number] Normal [facility] ED Clinical Summaryon 2022 ED Clinical Summary [address] [address] ED Clinical Summary Person Information Name: GRACIELA OLIVAREZ [place] Age: 27 Years : 1995 Sex: Female Language: Anguillan PCP: Gloria CASTELLANOS CNP Marital Status: Visit [...] 01/03/2023 20:50:04 01/03/2023 20:50:04 01/03/2023 20:50:04 ADDRESS: [address] [place] [id number] [facility] DOC NOTES: MEDICAL INFORMATION: Prescriptions Given: Medications to Continue with No Changes Other Medications ondansetron (Zofran ODT 4 mg Tab-Dis) 1 Tablets By Mouth every 6 hours as needed Nausea/Vomiting. Refills: 0. valacyclovir (valacyclovir 1 g Tab) take 2 tab at first sign of cold sore repeat in 12 hours.. Refills: 1. PATIENT EDUCATION INFORMATION: Instructions: Morning Sickness, [id number] Follow up: With: Address: When: Toni WATKINS [facility], [address] [place] [address] [place] [address] Business (1) In 3 days 01/06/2023 DIAGNOSIS: Nausea/vomiting in Normal [facility] ED Note-Physicianon 01-04-20 ED Note-Physician Basic Information [...] she is dehydrated. Patient is followed by [facility], Dr. Watkins, has had an ultrasound which [...] discharged home with instructions to follow with [facility] and is to return to the ED [...] Toni WATKINS In 3 days 01/06/2023 EDT [facility] [address] [facility] [place] [address] Business (1) Additional Instructions: Patient Education Morning Sickness, Wjni-[id number] Attestation Patient was treated and evaluated by the Physician Flight Radio Operator. The attending physician was in the Emergency [...] is unknown (more content not included)... Normal [facility] Comment on above: Result Comment: Elec tronically [...] these instructions at home: Medicines ? Take iesf-tou-klxmxjo and prescription medicines only as told by [...] provider. Document Revised: 11/25/2020 Document Reviewed: 11/04/2020 Elsevier Patient Education ? 2022 [employer] Normal [facility] ED Patient Summaryon 023 ED Patient Summary [address] [address] Patient Discharge Instructions Person Information Name: GRACIELA OLIVAREZ Age: 27 Years Arrival Date: 01/03/2023 16:15:39 Discharge Diagnosis: Nausea/vomiting in Primary Care Physician: Gloria CASTELLANOS CNP Provider Information Primary Provider: Kemal Sharma DO Advanced Ems Driver:Velia Correa PA-C The exam and treatment you received in the Emergency Department were for an urgent problem and are not intended as complete care. It is important that you follow up with a doctor, nurse practitioner, or physician?s chef's assistant for ongoing care. If your symptoms become worse or you do not improve as expected and you are unable to reach your usual health care provider, you should return to the Emergency Department. We are available 24 hours a day. GRACIELA OLIVAREZ has been given the following list of patient education materials, prescriptions and follow-up instructions: Follow-up Instructions: With: Address: When: Toni WATKINS [facility], [address] [place] [address] [place] [address] Business (1) In 3 days 01/06/2023 In the event that this physician does not participate in your insurance network, please consult with your insurance company to find a nearby participating provider. Patient Education Materials: Morning Sickness, Vvzo-nq-Wjzg A MESSAGE TO ALL PATIENTS REGARDING OPIOIDS PRESCRIPTION OPIOIDS: WHAT YOU NEED TO KNOW Prescription opioids can be used to help relieve inwwkrdh-om-plxxax pain and are often prescribed following a [...] be struggling with addiction, tell your health career services representative and ask for guidance or call [facility] National [employer] (more content not included)... Normal [facility] HEMATOLOGYOrdered By: SYSTEM SYSTEM on 01-03-2023 Basophils/100 WBC (Bld) 0.5 % Normal 0.0 - 2.0 % [facility] HemeAutoSS Basophils/Leukocytes Auto (Bld) [Pure # fraction] [...] 5.8 E9/L Normal 4.0 - 11.0 E9/L [facility] HemeAutoSS UA With Cult Reflexon 2022 Bilirubin Ql (U) 1+ Abnormal Negative [facility] Comment on above: Performed By: #### 1 [id number] #### [facility] [address] [place] [address] Clarity (U) CLEAR Normal Clear [facility] Comment on above: Performed By: #### 1 [id number] #### [facility] [address] [place] [address] Color (U) YELLOW Normal Yellow [facility] Comment on above: Performed By: #### 1 [id number] #### [facility] [address] [place] [address] Epithelial cells.squamous LM.HPF (Urine sed) [#/Area] 3-4 Normal 0-2 [facility] Comment on above: Performed By: #### 1 [id number] #### [facility] [address] [place] [address] Glucose Test strip (U) [Mass/Vol] Negative Normal Negative [facility] Comment on above: Performed By: #### 1 [id number] #### [facility] [address] [place] [address] Hemoglobin Ql (U) 2+ Abnormal Negative [facility] Comment on above: Performed By: #### 1 [id number] #### [facility] [address] [place] [address] Ketones (U) [Mass/Vol] 2+ Abnormal Negative [facility] Comment on above: Performed By: #### 1 [id number] #### [facility] [address] [place] [address] [place].plasma/Lithiu m.RBC (Bld) [Mass ratio] 0-3 Normal 0-3 [facility] Comment on above: Performed By: #### 1 [id number] #### [facility] [address] [place] [address] Mucus Ql (Urine sed) 2+ Normal [facility] Comment on above: Performed By: #### 1 [id number] #### [facility] [address] [place] [address] Nitrite Ql (U) Negative Normal Negative [facility] Comment on above: Performed By: #### 1 [id number] #### [facility] [address] [place] [address] pH (U) 6.0 [pH] Invalid Interpretation Code 5.0-9.0 [facility] Comment on above: Performed By: #### 1 [id number] #### [facility] [address] [place] [address] Protein (U) [Mass/Vol] 1+ Abnormal Negative [facility] Comment on above: Performed By: #### 1 [id number] #### [facility] [address] [place] [address] Specific gravity (U) [Rel density] >=1.030 Invalid Interpretation Code 1.005-1.030 [facility] Comment on above: Performed By: #### 1 [id number] #### [facility] [address] [place] [address] Type of Urine collection method Clean Catch Normal [facility] Comment on above: Performed By: #### 1 [id number] #### [facility] [address] [place] [address] Urobilinogen Qn (U) 1.0 {Maggy'U}/dL Normal 0.0-1.0 [facility] Comment on above: Performed By: #### 1 [id number] #### [facility] [address] [place] [address] WBC Auto Ql (U) Negative Normal Negative [facility] Comment on above: Performed By: #### 1 [id number] #### [facility] [address] [place] [address] WBC LM.HPF (Urine sed) [#/Area] 0-5 Normal 0-5 [facility] Comment on above: Performed By: #### 1 [id number] #### [facility] [address] [place] [address] URINALYSISOrdered By: Dianne Ortiz on 01-03-2023 Bilirubin Ql (U) 1+ *ABN* (01/03/23 5:04 PM) Invalid Interpretation Code Negative [facility] UA Auto SS Clarity (U) Clear (01/03/23 5:04 PM) Normal Clear [facility] UA Auto SS Color (U) Yellow (01/03/23 5:04 PM) Normal Yellow [facility] UA Auto SS Epithelial cells.squamous LM.HPF (Urine [...] Interpretation Code Negative [facility] UA Auto SS [place].plasma/Lithiu m.RBC (Bld) [Mass ratio] 0-3 /HPF Normal [...] [facility] UA Auto SS Urobilinogen Qn (U) 1.1633082 {Maggy'U}/dL Normal 0.0 - 1.0 EU/dL [facility] UA Auto SS WBC Auto Ql (U) Negative (01/03/23 5:04 PM) Normal Negative [facility] UA Auto SS WBC LM.HPF (Urine sed) [#/Area] 0-5 /HPF Normal 0-5/HPF [facility] UA Auto SS eGFRon 01-03-2023 GFR/1.73 sq M.predicted among non-blacks MDRD (S/P/Bld) [Vol rate/Area] 133 mL/min/1.73 m2 Normal >=59 [facility] Comment on above: Order Comment: Order added by Discern Expert. Result Comment: Mud Grinder diya kidney disease could be indicated at eGFR's of less than 60 mL/min/1.73m2. Kidney failure is indicated at less than 15 mL/min/1.73m2. Performed By: #### 2 [id number], [id number], [id number] #### [facility] [address] [place] [address] CULTURE URINEon 01-10-2022 CULTURE URINE Culture Observations: MODERATE GROWTH OF MIXED GENITAL RIC. NO POTENTIAL PATHOGENS SEEN. Normal [facility] Comment on above: Performed By: #### U RCX #### [facility] [address] [place] [address] Dr. Narciso Amaral UA (CLEAN/CATCH) DIE CAST TECHNICIAN/MICRO I F IND.on 01-10-2022 Bilirubin Ql (U) Negative Normal NEGATIVE [facility] Comment on above: Performed By: #### U MICRO, UACSIND #### [facility] [address] [place] [address] Dr. Narciso Amaral Clarity (U) CLEAR Normal CLEAR [facility] Comment on above: Performed By: #### U MICRO, UACSIND #### [facility] [address] [place] [address] Dr. Narciso Amaral Color (U) LT. YELLOW Normal YELLOW [facility] Comment on above: Performed By: #### U MICRO, UACSIND #### [facility] [address] [place] [address] Dr. Narciso Amaral Glucose Ql (U) Negative Normal NEGATIVE [facility] Comment on above: Performed By: #### U MICRO, UACSIND #### [facility] [address] [place] [address] Dr. Narciso Amaral Hemoglobin Ql (U) LARGE Abnormal NEGATIVE [facility] Comment on above: Performed By: #### U MICRO, UACSIND #### [facility] [address] [place] [address] Dr. Narciso Amaral Ketones Ql (U) Negative Normal NEGATIVE [facility] Comment on above: Performed By: #### U MICRO, UACSIND #### [facility] [address] [place] [address] Dr. Narciso Amaral LEUKOCYTES TRACE Abnormal NEGATIVE [facility] Comment on above: Performed By: #### U MICRO, UACSIND #### [facility] [address] [address] [address] Narciso Amaral Nitrite Ql (U) Negative Normal NEGATIVE [facility] Comment on above: Performed By: #### U MICRO, UACSIND #### [facility] [address] [address] [address] Narciso Amaral pH (U) 6.0 [pH] Normal 5-9 [facility] Comment on above: Performed By: #### U MICRO, UACSIND #### [facility] [address] [address] [address] Narciso Amaral SPEC GRAVITY <=1.005 Abnormal 1.005-<=1.025 [facility] Comment on above: Performed By: #### U MICRO, UACSIND #### [facility] [address] [place] [address] Dr. Narciso Amaral UA PROTEIN Negative Normal NEGATIVE/ TRACE [facility] Comment on above: Performed By: #### U MICRO, UACSIND #### [facility] [address] [place] [address] Dr. Narciso Amaral UR MICRO IND INDICATED Normal [facility] Comment on above: Performed By: #### U MICRO, UACSIND #### [facility] [address] [address] [address] Narciso Amaral Urobilinogen Qn (U) 0.2 {Maggy'U}/dL Normal 0.2 - 1. 0 [facility] Comment on above: Performed By: #### U MICRO, UACSIND #### [facility] [address] [address] [address] Narciso Amaral URINE MICROSCOPIC ONLYon BACTERIA SMALL Abnormal NONE SEEN [facility] Comment on above: Performed By: #### U MICRO, UACSIND #### [facility] [address] [address] [address] Narciso Amaral Bacteria identified Cx Nom (U) INDICATED Normal [facility] Comment on above: Performed By: #### U MICRO, UACSIND #### [facility] [address] [place] [address] Dr. Narciso Amaral CAST NONE SEEN Normal NONE SEEN [facility] Comment on above: Performed By: #### U MICRO, UACSIND #### [facility] [address] [place] [address] Dr. Narciso Amaral Crystals LM Nom (Urine sed) NONE SEEN Normal NONE SEEN [facility] Comment on above: Performed By: #### U MICRO, UACSIND #### [facility] [address] [place] [address] Dr. Narciso Amaral Epithelial cells LM Ql (Urine sed) FEW Abnormal NONE SEEN /RARE [facility] Comment on above: Performed By: #### U MICRO, UACSIND #### [facility] [address] [place] [address] Dr. Narciso Amaral MUCOUS NONE SEEN Normal NONE SEEN [facility] Comment on above: Performed By: #### U MICRO, UACSIND #### [facility] [address] [place] [address] Dr. Narciso Amaral RBC 5-10 Abnormal 0-2 [facility] Comment on above: Performed By: #### U MICRO, UACSIND #### [facility] [address] [place] [address] Dr. Narciso Amaral WBC 0-2 Abnormal NONE SEEN [facility] Comment on above: Performed By: #### U MICRO, UACSIND #### [facility] [address] [place] [address] Dr. Narciso Amaral CBC AUTO DIFFon 01-09-2022 BASO # 0.0 103/ul Normal 0.0-0.1 [facility] Comment on above: Performed By: #### C BC #### [facility] [address] [place] [address] Dr. Narciso Amaral Basophils/100 WBC (Bld) 0.2 % Normal 0.2-2.0 [facility] Comment on above: Performed By: #### C BC #### [facility] [address] [place] [address] Dr. Narciso Amaral EO # 0.0 103/ul Normal 0.0-0.7 [facility] Comment on above: Performed By: #### C BC #### [facility] [address] [place] [address] Dr. Narciso Amaral Eosinophils/100 WBC (Bld) 0.1 % Critically low 0.9-7.0 [facility] Comment on above: Performed By: #### C BC #### [facility] [address] [place] [address] Dr. Narciso Amaral Erythrocyte distribution width (RBC) [Ratio] 12.8 % Normal 11.0-15.0 [facility] Comment on above: Performed By: #### C BC #### [facility] [address] [place] [address] Dr. Narciso Amaral Hematocrit (Bld) [Volume fraction] 30.8 % Critically low 36.0-48.0 [facility] Comment on above: Performed By: #### C BC #### [facility] [address] [place] [address] Dr. Narciso Amaral Hemoglobin (Bld) [Mass/Vol] 10.0 g/dL Critically low 12.0-16.0 [facility] Comment on above: Performed By: #### C BC #### [facility] [address] [place] [address] Dr. Narciso Amaral IG # 0.02 10e3/ul Normal 0.00-0.03 [facility] Comment on above: Performed By: #### C BC #### [facility] [address] [place] [address] Dr. Narciso Amaral IG % 0.2 % Normal 0.0-0.5 [facility] Comment on above: Performed By: #### C BC #### [facility] [address] [place] [address] Dr. Narciso Amaral LYMPH # 1.4 103/ul Normal 1.2-3.8 [facility] Comment on above: Performed By: #### C BC #### [facility] [address] [place] [address] Dr. Narciso Amaral Lymphocytes/100 WBC (Bld) 14.0 % Critically low 20.5-60.0 [facility] Comment on above: Performed By: #### C BC #### [facility] [address] [place] [address] Dr. Narciso Amaral MANUAL DIFF REQ NO Normal [facility] Comment on above: Performed By: #### C BC #### [facility] [address] [place] [address] Dr. Narciso Amaral MCH (RBC) [Entitic mass] 31.7 pg Normal 26.7-34.0 [facility] Comment on above: Performed By: #### C BC #### [facility] [address] [place] [address] Dr. Narciso Amaral MCHC (RBC) [Mass/Vol] 32.5 g/dL Normal 29.9-35.2 [facility] Comment on above: Performed By: #### C BC #### [facility] [address] [place] [address] Dr. Narciso Amaral MCV (RBC) [Entitic vol] 97.8 fL Normal 81.0-99.0 [facility] Comment on above: Performed By: #### C BC #### [facility] [address] [place] [address] Dr. Narciso Amaral MONO # 0.8 103/ul Normal 0.3-0.8 [facility] Comment on above: Performed By: #### C BC #### [facility] [address] [place] [address] Dr. Narciso Amaral Monocytes/100 WBC (Bld) 8.2 % Normal 1.7-12.0 [facility] Comment on above: Performed By: #### C BC #### [facility] [address] [place] [address] Dr. Narciso Amaral NEUT # 7.9 103/ul Critically high 1.4-6.5 [facility] Comment on above: Performed By: #### C BC #### [facility] [address] [place] [address] Dr. Narciso Amaral Neutrophils/100 WBC (Bld) 77.3 % Critically high 43.0-75.0 [facility] Comment on above: Performed By: #### C BC #### [facility] [address] [place] [address] Dr. Narciso Amaral Platelet mean volume (Bld) [Entitic vol] 9.9 fL Normal 9.5-13.5 [facility] Comment on above: Performed By: #### C BC #### [facility] [address] [place] [address] Dr. Narciso Amaral PLT 143 103/ul Critically low 150-450 [facility] Comment on above: Performed By: #### C BC #### [facility] [address] [place] [address] Dr. Narciso Amaral RBC 3.15 106/ul Critically low 4.20-5.40 [facility] Comment on above: Performed By: #### C BC #### [facility] [address] [place] [address] Dr. Narciso Amaral WBC 10.2 103/ul Normal 4.0-11.0 [facility] Comment on above: Performed By: #### C BC #### [facility] [address] [place] [address] Dr. Narciso Amaral CBC AUTO DIFFon 01-08-2022 BASO # 0.0 103/ul Normal 0.0-0.1 [facility] Comment on above: Performed By: #### C BC #### [facility] [address] [place] [address] Dr. Narciso Amaral Basophils/100 WBC (Bld) 0.3 % Normal 0.2-2.0 [facility] Comment on above: Performed By: #### C BC #### [facility] [address] [place] [address] Dr. Narciso Amaral EO # 0.0 103/ul Normal 0.0-0.7 [facility] Comment on above: Performed By: #### C BC #### [facility] [address] [place] [address] Dr. Narciso Amaral Eosinophils/100 WBC (Bld) 0.4 % Critically low 0.9-7.0 [facility] Comment on above: Performed By: #### C BC #### [facility] [address] [place] [address] Dr. Narciso Amaral Erythrocyte distribution width (RBC) [Ratio] 12.7 % Normal 11.0-15.0 [facility] Comment on above: Performed By: #### C BC #### [facility] [address] [place] [address] Dr. Narciso Amaral Hematocrit (Bld) [Volume fraction] 38.0 % Normal 36.0-48.0 [facility] Comment on above: Performed By: #### C BC #### [facility] [address] [place] [address] Dr. Narciso Amaral Hemoglobin (Bld) [Mass/Vol] 12.5 g/dL Normal 12.0-16.0 [facility] Comment on above: Performed By: #### C BC #### [facility] [address] [place] [address] Dr. Narciso Amaral IG # 0.03 10e3/ul Normal 0.00-0.03 [facility] Comment on above: Performed By: #### C BC #### [facility] [address] [place] [address] Dr. Narciso Amaral IG % 0.4 % Normal 0.0-0.5 [facility] Comment on above: Performed By: #### C BC #### [facility] [address] [place] [address] Dr. Narciso Amaral LYMPH # 1.3 103/ul Normal 1.2-3.8 [facility] Comment on above: Performed By: #### C BC #### [facility] [address] [place] [address] Dr. Narciso Amaral Lymphocytes/100 WBC (Bld) 17.6 % Critically low 20.5-60.0 [facility] Comment on above: Performed By: #### C BC #### [facility] [address] [place] [address] Dr. Narciso Amaral MANUAL DIFF REQ NO Normal [facility] Comment on above: Performed By: #### C BC #### [facility] [address] [place] [address] Dr. Narciso Amaral MCH (RBC) [Entitic mass] 31.6 pg Normal 26.7-34.0 [facility] Comment on above: Performed By: #### C BC #### [facility] [address] [place] [address] Dr. Narciso Amaral MCHC (RBC) [Mass/Vol] 32.9 g/dL Normal 29.9-35.2 [facility] Comment on above: Performed By: #### C BC #### [facility] [address] [place] [address] Dr. Narciso Amaral MCV (RBC) [Entitic vol] 96.0 fL Normal 81.0-99.0 [facility] Comment on above: Performed By: #### C BC #### [facility] [address] [place] [address] Dr. Narciso Amaral MONO # 0.5 103/ul Normal 0.3-0.8 [facility] Comment on above: Performed By: #### C BC #### [facility] [address] [place] [address] Dr. Narciso Amaral Monocytes/100 WBC (Bld) 6.2 % Normal 1.7-12.0 [facility] Comment on above: Performed By: #### C BC #### [facility] [address] [place] [address] Dr. Narciso Amaral NEUT # 5.5 103/ul Normal 1.4-6.5 [facility] Comment on above: Performed By: #### C BC #### [facility] [address] [place] [address] Dr. Narciso Amaral Neutrophils/100 WBC (Bld) 75.1 % Critically high 43.0-75.0 [facility] Comment on above: Performed By: #### C BC #### [facility] [address] [place] [address] Dr. Narciso Amaral Platelet mean volume (Bld) [Entitic vol] 10.3 fL Normal 9.5-13.5 [facility] Comment on above: Performed By: #### C BC #### [facility] [address] [address] [address] Narciso Amaral PLT 159 103/ul Normal 150-450 [facility] Comment on above: Performed By: #### C BC #### [facility] [address] [place] [address] Dr. Narciso Amaral RBC 3.96 106/ul Critically low 4.20-5.40 [facility] Comment on above: Performed By: #### C BC #### [facility] [address] [place] [address] Dr. Narciso Amaral WBC 7.4 103/ul Normal 4.0-11.0 [facility] Comment on above: Performed By: #### C BC #### [facility] Laboratory [address] [place] [address] Dr. Narciso Amaral Covid-19 PCR ([facility])on 12-25 SARS-CoV-2 (COVID-19) RNA MOHAN+probe Ql (Unsp spec) Not detected Normal NOT DETECTED [facility] Comment on above: Result Comment: When [...] for this test is supported by the Cable T[employer] Helper of Health and Human Service's declaration that [...] used). Performed By: #### C VDTBH #### [facility] Laboratory [address] [place] [address] Dr. Narciso Amaral DRUG SCREEN RAPID (URINE)on 01-08-2022 AMP Negative Normal NEGATIVE [facility] Comment on above: Performed By: #### C T/NGNA #### [facility] Laboratory [address] [place] [address] Dr. Narciso Amaral BAR Negative Normal NEGATIVE [facility] Comment on above: Performed By: #### C T/NGNA #### [facility] Laboratory [address] [place] [address] Dr. Narciso Amaral BUP Negative Normal NEGATIVE [facility] Comment on above: Performed By: #### C T/NGNA #### [facility] Laboratory [address] [place] [address] Dr. Narciso Amaral BZO Negative Normal NEGATIVE [facility] Comment on above: Performed By: #### C T/NGNA #### [facility] Laboratory [address] [place] [address] Dr. Narciso Amaral TREY Negative Normal NEGATIVE [facility] Comment on above: Performed By: #### C T/NGNA #### [facility] Laboratory [address] [place] [address] Dr. Narciso Amaral CUT-OFFS SEE BELOW Normal [facility] Comment on above: Result Comment: AMP [...] ng/mL Performed By: #### C T/NGNA #### [facility] Laboratory [address] [place] [address] Dr. Narciso Amaral DRUG CUT HEADER DRUG CLASS TEST SYSTEM CUT-OFF CONCENTRATIONS ARE FOLLOWS: Normal [facility] Comment on above: Performed By: #### C T/NGNA #### [facility] Laboratory [address] [place] [address] Dr. Narciso Amaral mAMP Negative Normal NEGATIVE [facility] Comment on above: Performed By: #### C T/NGNA #### [facility] Laboratory [address] [address] [address] Narciso Amaral MTD Negative Normal NEGATIVE [facility] Comment on above: Performed By: #### C T/NGNA #### [facility] Laboratory [address] [place] [address] Dr. Narciso Amaral OPI Negative Normal NEGATIVE [facility] Comment on above: Performed By: #### C T/NGNA #### [facility] Laboratory [address] [address] [address] Narciso Amaral OXY Negative Normal NEGATIVE [facility] Comment on above: Performed By: #### C T/NGNA #### [facility] Laboratory [address] [place] [address] Dr. Narciso Amaral PCP Negative Normal NEGATIVE [facility] Comment on above: Performed By: #### C T/NGNA #### [facility] Laboratory [address] [address] [address] Narciso Amaral PPX Negative Normal NEGATIVE [facility] Comment on above: Performed By: #### C T/NGNA #### [facility] Laboratory [address] [address] [address] Narciso Amaral TCA Negative Normal NEGATIVE [facility] Comment on above: Performed By: #### C T/NGNA #### [facility] Laboratory [address] [place] [address] Dr. Narciso Amaral THC Negative Normal NEGATIVE [facility] Comment on above: Performed By: #### C T/NGNA #### [facility] Laboratory [address] [place] [address] Dr. Narciso Amaral TYPE AND SCREENon 01-08-2022 TYPE AND SCREEN Negative Normal [facility] Comment on above: Performed By: #### C T/NGNA #### [facility] Laboratory [address] [place] [address] Dr. Narciso Amaral US PREG BIOPHY W [...] KRISTINA ESTRADA Date: 2022-01-07 16:20 Normal [facility] US PREG BIOPHY W NON STRESSo [...] KRISTINA ESTRADA Date: 2021-12-31 16:27 Normal [facility] VAGINITIS/VAGINOSIS DNA PROB Ujlius 12-26-2021 Fany species Negative Normal Negative [facility] Comment on above: Performed By: #### C BC #### [facility] Laboratory [address] [address] [address] Narciso Amaral Gardnerella vaginalis Negative Normal Negative [facility] Comment on above: Performed By: #### C BC #### [facility] Laboratory [address] [address] [address] Narciso Amaral Trichomonas vaginalis Negative Normal Negative [facility] Comment on above: Performed By: #### C BC #### [facility] Laboratory [address] [address] [address] Narciso Amaral US PREG BIOPHY W [...] KRISTINA ESTRADA Date: 2021-12-25 09:13 Normal [facility] GROUP B STREP CULTUREon 11-26 S. agalactiae Ag Ql (Unsp spec) Culture Observations: NEGATIVE FOR GROUP B STREPTOCOCCUS. Normal [facility] Comment on above: Performed By: #### C Zoran/HAWA #### [facility] Laboratory [address] [place] [address] Dr. Narciso Amaral US PREG GROWTHon 12-24-2021 US PREG GROWTH Ultrasound biophysical profile Ultrasound obstetrical, limited CLINICAL: Oligohydramnios follow-up. TECHNIQUE: Transabdominal obstetrical ultrasound was performed. Ultrasound biophysical profile was also performed by assisted living housekeeper. FINDINGS: 09/29/2021. FETUS AND PLACENTA: There is [...] gestational age according to Hadlock criteria. Remarks: Filter Plant Operator reports that Dr. Watkins is aware of findings. Electronically authenticated by: AMPARO PATEL Date: 2021-12-24 12:27 [facility] Hematocrit (Bld) [Volume fraction] 35.7 % Low 36 - 46 % [facility] Hemoglobin (Bld) [Mass/Vol] 11.9 g/dL Low 12.0 - 16.0 g/dL [facility] Interpretation and review of laboratory results Abnormal [facility] MCH (RBC) [Entitic mass] 32.8 pg 26 - 34 pg [facility] MCHC (RBC) [Mass/Vol] 33.4 g/dL 31 - 37 g/dL B ON [facility] MCV (RBC) [Entitic vol] 98.1 fL 80 - 100 fL [facility] Platelet distribution width (Bld) [Ratio] 12.1 % 12.1 - 15.2 % [facility] Platelets (Bld) [#/Vol] 178 10*3/uL [facility] RBC (Bld) [#/Vol] 3.64 10*6/uL Low 4.0 - 5.2 m/uL [facility] WBC (Bld) [#/Vol] 7.6 10*3/uL [facility] Glucose tolerance, 1 houron 10-28-2021 GLU ADMN Glucola [facility] Glucose tolerance screen 50g 134 mg/dL 70 - 135 mg/dL [facility] US PREG INCOMPLETE ANATOMYon 09-29-2021 US PREG [...] GREG RODNEY Date: 2021-09-29 08:50 Normal [facility] US PREG ANATOMY SINGLEon US PREG [...] KRISTINA ESTRADA Date: 2021-09-01 16:26 Normal [facility] AFP MATERNAL FOR SPINA BIFID Aon 08-25-2021 AFP MoM 0.71 Normal [facility] Comment on above: Performed By: #### C BC #### [facility] Laboratory [address] [address] [address] Narciso Amaral AFP Value 45.2 ng/mL Normal [facility] Comment on above: Performed By: #### C BC #### [facility] Laboratory [address] [address] [address] Narciso Amaral AFP, Serum for Spina Bifida Report Normal [facility] Comment on above: Performed By: #### C BC #### [facility] Laboratory [address] [address] [address] Narciso Amaral Comment Comment Normal [facility] Comment on above: Result Comment: Ky Magallon, Ph.D., [facility] Director . References: Available Upon Request. . Multiples Of Median Cutoffs For AFP Elevations Bernstein 2.5 Black 2.8 IDD 2.0 Twins 4.5 Abbreviation Definitions IDD - Insulin Dep Diabetes OSBR - Open Spina Bifida Risk . For further inquiries contact [employer] at [phone]. Performed By: #### C BC #### [facility] Laboratory [address] [address] [address] Narciso Echevarria Age Collection Date 19.0 weeks [facility] Comment on above: Performed By: #### C BC #### [facility] Laboratory [address] [address] [address] Narciso Amaral Gestat, Age Based on LMP Normal [facility] Comment on above: Result Comment: Reca lculations are not recommended when gestational dating by LMP and ultrasound are within 10 days. Performed By: #### C BC #### [facility] Laboratory [address] [address] [address] Narciso Amaral Insulin Dep Diabetes No Normal [facility] Comment on above: Performed By: #### C BC #### [facility] Laboratory [address] [place] [address] Dr. Narciso Amaral Interpretation Comment Normal [facility] Comment on above: Result Comment: Inte rpretation: [...] Customer Services to discuss available options. The [place] recommends amniocentesis be offered to women age 35 and older. Performed By: #### C BC #### [facility] Laboratory [address] [address] [address] Narciso Amaral [age] Normal [facility] Comment on above: Performed By: #### C BC #### [facility] Laboratory [address] [address] [address] Narciso Amaral Multiple Gestation No Normal [facility] Comment on above: Performed By: #### C BC #### [facility] [address] [address] [address] Narciso Amaral [place] [id number] Normal [facility] Comment on above: Performed By: #### C BC #### [facility] Laboratory [address] [address] [address] Narciso Amaral PDF . [facility] Comment on above: Performed By: #### C BC #### [facility] [address] [address] [address] Narciso Amaral Race [facility] Comment on above: Performed By: #### C BC #### [facility] [address] [address] [address] Narciso Amaral Test Results: Negative [facility] Comment on above: Performed By: #### C BC #### [facility] [address] [address] [address] Narciso Amaral PAP ACOG PANEL 2: 21 to 29on 08-23-2021 . . [facility] Comment on above: Performed By: #### C BC #### [facility] Laboratory [address] [place] [address] Dr. Narciso Amaral Age Gdln ACOG Testing - [facility] Comment on above: Performed By: #### C BC #### [facility] Laboratory [address] [place] [address] Dr. Narciso Amaral DIAGNOSIS: Comment [facility] Comment on above: Result Comment: NEGA TIVE FOR INTRAEPITHELIAL LESION OR MALIGNANCY. Performed By: #### C BC #### [facility] Laboratory [address] [place] [address] Dr. Narciso Amaral Methodology: Comment [facility] Comment on above: Result Comment: This liquid based ThinPrep(R) pap test was screened with the use of an image guided system. Performed By: #### C BC #### [facility] Laboratory [address] [place] [address] Dr. Narciso Amaral Note: Comment [facility] Comment on above: Result Comment: The Pap smear is a screening test designed to aid in the detection of premalignant and malignant conditions of the uterine cervix. It is not a diagnostic procedure and should not be used as the sole means of detecting cervical cancer. Both false-positive and false-negative reports do occur. . Performed By: #### C BC #### [facility] Laboratory [address] [place] [address] Dr. Narciso Amaral Performed by: Comment Normal [facility] Comment on above: Result Comment: [employer] Manpower Development Advisor (ASCP) Performed By: #### C BC #### [facility] Laboratory [address] [place] [address] Dr. Narciso Amaral Reflex Criteria: Comment Normal [facility] Comment on above: Result Comment: The HPV DNA reflex criteria were not met with this specimen result therefore, no HPV testing was performed. . Performed By: #### C BC #### [facility] Laboratory [address] [place] [address] Dr. Narciso Amaral Specimen adequacy: Comment Normal [facility] Comment on above: Result Comment: Sati sfactory for evaluation. No endocervical component is identified. Performed By: #### C BC #### [facility] Laboratory [address] [place] [address] Dr. Narciso Amaral CHLAMYDIA/GONOCOCCUS MOHAN (SW AB/URINE/PAPon 08-21-2021 Chlamydia trachomatis, MOHAN Negative Normal Negative [facility] Comment on above: Performed By: #### C T/NGNA #### [facility] Laboratory [address] [place] [address] Dr. Narciso Amaral Neisseria gonorrhoeae, MOHAN Negative Normal Negative [facility] Comment on above: Performed By: #### C T/NGNA #### [facility] Laboratory [address] [place] [address] Dr. Narciso Amaral HEP B SURFACE ANTIGEN SCREEN on 07-04-2021 HBsAg Screen Negative Normal Negative [facility] Comment on above: Performed By: #### N BOX #### [facility] Laboratory [address] [place] [address] Dr. Narciso Amaral HEPATITIS C VIRUS AB W/ REFL EX QUANTon 07-04-2021 HCV AB <0.1 Normal 0.0-0.9 [facility] Comment on above: Performed By: #### C BC #### [facility] Laboratory [address] [place] [address] Dr. Narciso Amaral Interpretation: Comment Normal [facility] Comment on above: Result Comment: Nega tive Not infected with HCV, unless recent infection is suspected or other evidence exists to indicate HCV infection. Performed By: #### C BC #### [facility] Laboratory [address] [place] [address] Dr. Narciso Amaral HIV 1 AND 2 WITH REFLEXon HIV Screen 4th Generation wRfx Non-Reactive Normal Non Reactive [facility] Comment on above: Result Comment: HIV Negative HIV-1/HIV-2 antibodies and HIV-1 p24 antigen were NOT detected. There is no laboratory evidence of HIV infection. Performed By: #### N BOX #### [facility] Laboratory [address] [place] [address] Dr. Narciso Amaral RPR QUANTon 07-04-2021 Rapid Plasma Reagin, Quant Non-Reactive Normal NonRea<1:1 [facility] Comment on above: Performed By: #### C BC #### [facility] Laboratory [address] [place] [address] Dr. Narciso Amaral RUBELLA AB IGGon 07-04-2021 Rubella Antibodies, IgG <0.90 Critically low Immune >0.99 [facility] Comment on above: Result Comment: Non- immune <0.90 Equivocal 0.90 - 0.99 Immune >0.99 Performed By: #### R UBIGG #### [facility] Laboratory [address] [place] [address] Dr. Narciso Amaral CBC AUTO DIFFon 07-03-2021 BASO # 0.0 103/ul Normal 0.0-0.1 [facility] Comment on above: Performed By: #### C BC #### [facility] Laboratory [address] [place] [address] Dr. Narciso Amaral Basophils/100 WBC (Bld) 0.4 % Normal 0.2-2.0 [facility] Comment on above: Performed By: #### C BC #### [facility] Laboratory [address] [place] [address] Dr. Narciso Amaral EO # 0.0 103/ul Normal 0.0-0.7 [facility] Comment on above: Performed By: #### C BC #### [facility] Laboratory [address] [place] [address] Dr. Narciso Amaral Eosinophils/100 WBC (Bld) 0.4 % Critically low 0.9-7.0 [facility] Comment on above: Performed By: #### C BC #### [facility] Laboratory [address] [place] [address] Dr. Narciso Amaral Erythrocyte distribution width (RBC) [Ratio] 11.9 % Normal 11.0-15.0 [facility] Comment on above: Performed By: #### C BC #### [facility] Laboratory [address] [place] [address] Dr. Narciso Amaral Hematocrit (Bld) [Volume fraction] 33.0 % Critically low 36.0-48.0 [facility] Comment on above: Performed By: #### C BC #### [facility] [address] [place] [address] Dr. Narciso Amaral Hemoglobin (Bld) [Mass/Vol] 11.3 g/dL Critically low 12.0-16.0 [facility] Comment on above: Performed By: #### C BC #### [facility] [address] [place] [address] Dr. Narciso Amaral IG # 0.01 10e3/ul Normal 0.00-0.03 [facility] Comment on above: Performed By: #### C BC #### [facility] [address] [place] [address] Dr. Narciso Amaral IG % 0.2 % Normal 0.0-0.5 [facility] Comment on above: Performed By: #### C BC #### [facility] [address] [place] [address] Dr. Narciso Amaral LYMPH # 1.9 103/ul Normal 1.2-3.8 [facility] Comment on above: Performed By: #### C BC #### [facility] Laboratory [address] [place] [address] Dr. Narciso Amaral Lymphocytes/100 WBC (Bld) 35.9 % Normal 20.5-60.0 [facility] Comment on above: Performed By: #### C BC #### [facility] Laboratory [address] [place] [address] Dr. Narciso Amaral MANUAL DIFF REQ NO Normal [facility] Comment on above: Performed By: #### C BC #### [facility] Laboratory [address] [place] [address] Dr. Narciso Amaral MCH (RBC) [Entitic mass] 31.6 pg Normal 26.7-34.0 [facility] Comment on above: Performed By: #### C BC #### [facility] Laboratory [address] [place] [address] Dr. Narciso Amaral MCHC (RBC) [Mass/Vol] 34.2 g/dL Normal 29.9-35.2 [facility] Comment on above: Performed By: #### C BC #### [facility] Laboratory [address] [place] [address] Dr. Narciso Amaral MCV (RBC) [Entitic vol] 92.2 fL Normal 81.0-99.0 [facility] Comment on above: Performed By: #### C BC #### [facility] Laboratory [address] [place] [address] Dr. Narciso Amaral MONO # 0.2 103/ul Critically low 0.3-0.8 [facility] Comment on above: Performed By: #### C BC #### [facility] Laboratory [address] [place] [address] Dr. Narciso Amaral Monocytes/100 WBC (Bld) 4.2 % Normal 1.7-12.0 [facility] Comment on above: Performed By: #### C BC #### [facility] Laboratory [address] [place] [address] Dr. Narciso Amaral NEUT # 3.1 103/ul Normal 1.4-6.5 [facility] Comment on above: Performed By: #### C BC #### [facility] Laboratory [address] [place] [address] Dr. Narciso Amaral Neutrophils/100 WBC (Bld) 58.9 % Normal 43.0-75.0 [facility] Comment on above: Performed By: #### C BC #### [facility] Laboratory [address] [place], [place] [id number] Dr. Narciso Amaral Platelet mean volume (Bld) [Entitic vol] 10.4 fL Normal 9.5-13.5 [facility] Comment on above: Performed By: #### C BC #### [facility] Laboratory [address] [place] [address] Dr. Narciso Amaral PLT 158 103/ul Normal 150-450 [facility] Comment on above: Performed By: #### C BC #### [facility] Laboratory [address] [address] [address] Narciso Amaral RBC 3.58 106/ul Critically low 4.20-5.40 [facility] Comment on above: Performed By: #### C BC #### [facility] Laboratory [address] [place] [address] Dr. Narciso Amaral WBC 5.2 103/ul Normal 4.0-11.0 [facility] Comment on above: Performed By: #### C BC #### [facility] Laboratory [address] [place] [address] Dr. Narciso Amaral CULTURE URINEon 07-03-2021 CULTURE URINE Culture Observations: No growth Normal [facility] Comment on above: Performed By: #### U RCX #### [facility] Laboratory [address] [place] [address] Dr. Nacriso Amaral GLYCOHEMOGLOBIN A1Con 2021 ADA RECOMMENDATION ADA THERAPEUTIC TARGET 6.0 - 7.0 ACTION SUGGESTED > 7.0 Normal [facility] Comment on above: Performed By: #### N BOX #### [facility] Laboratory [address] [place] [address] Dr. Narciso Amaral Glucose [Mass/Vol] 88 mg/dL Normal [facility] Comment on above: Performed By: #### N BOX #### [facility] Laboratory [address] [place] [address] Dr. Narciso Amaral HbA1c (Bld) [Mass fraction] 4.7 % Normal <=6.0 [facility] Comment on above: Performed By: #### N BOX #### [facility] Laboratory [address] [place] [address] Dr. Narciso Amaral BERNADINE BOX TEST PT SEND OUTo n 07-03-2021 SENT TO REF LAB 07/03/2021 Normal [facility] Comment on above: Performed By: #### N BOX #### [facility] Laboratory [address] [place] [address] Dr. Narciso Amaral TYPE AND SCREENon 07-03-2021 TYPE AND SCREEN Negative Normal [facility] Comment on above: Performed By: #### C T/NGNA #### [facility] Laboratory [address] [place] [address] Dr. Narciso Amaral CBC AUTO DIFFon 06-17-2021 BASO # 0.0 103/ul Normal 0.0-0.1 [facility] Comment on above: Performed By: #### N BOX #### [facility] [address] [place] [address] Dr. Narciso Amaral Basophils/100 WBC (Bld) 0.4 % Normal 0.2-2.0 [facility] Comment on above: Performed By: #### N BOX #### [facility] [address] [place] [address] Dr. Narciso Amaral EO # 0.0 103/ul Normal 0.0-0.7 [facility] Comment on above: Performed By: #### N BOX #### [facility] [address] [place] [address] Dr. Narciso Amaral Eosinophils/100 WBC (Bld) 0.0 % Critically low 0.9-7.0 [facility] Comment on above: Performed By: #### N BOX #### [facility] [address] [place] [address] Dr. Narciso Amaral Erythrocyte distribution width (RBC) [Ratio] 11.6 % Normal 11.0-15.0 [facility] Comment on above: Performed By: #### N BOX #### [facility] [address] [place] [address] Dr. Narciso Amaral Hematocrit (Bld) [Volume fraction] 42.6 % Normal 36.0-48.0 [facility] Comment on above: Performed By: #### N BOX #### [facility] [address] [place] [address] Dr. Narciso Amaral Hemoglobin (Bld) [Mass/Vol] 14.9 g/dL Normal 12.0-16.0 [facility] Comment on above: Performed By: #### N BOX #### [facility] [address] [place] [address] Dr. Narciso Amaral IG # 0.02 10e3/ul Normal 0.00-0.03 [facility] Comment on above: Performed By: #### N BOX #### [facility] [address] [place] [address] Dr. Narciso Amaral IG % 0.3 % Normal 0.0-0.5 [facility] Comment on above: Performed By: #### N BOX #### [facility] [address] [place] [address] Dr. Nraciso Amaral LYMPH # 2.1 103/ul Normal 1.2-3.8 [facility] Comment on above: Performed By: #### N BOX #### [facility] [address] [place] [address] Dr. Narciso Amaral Lymphocytes/100 WBC (Bld) 28.8 % Normal 20.5-60.0 [facility] Comment on above: Performed By: #### N BOX #### [facility] [address] [place] [address] Dr. Narciso Amaral MANUAL DIFF REQ NO Normal [facility] Comment on above: Performed By: #### N BOX #### [facility] [address] [place] [address] Dr. Narciso Amaral MCH (RBC) [Entitic mass] 31.6 pg Normal 26.7-34.0 [facility] Comment on above: Performed By: #### N BOX #### [facility] [address] [place] [address] Dr. Narciso Amaral MCHC (RBC) [Mass/Vol] 35.0 g/dL Normal 29.9-35.2 [facility] Comment on above: Performed By: #### N BOX #### [facility] [address] [place] [address] Dr. Narciso Amaral MCV (RBC) [Entitic vol] 90.4 fL Normal 81.0-99.0 [facility] Comment on above: Performed By: #### N BOX #### [facility] [address] [place] [address] Dr. Narciso Amaral MONO # 0.3 103/ul Normal 0.3-0.8 [facility] Comment on above: Performed By: #### N BOX #### [facility] [address] [place] [address] Dr. Narciso Amaral Monocytes/100 WBC (Bld) 4.6 % Normal 1.7-12.0 [facility] Comment on above: Performed By: #### N BOX #### [facility] [address] [place] [address] Dr. Narciso Amaral NEUT # 4.7 103/ul Normal 1.4-6.5 [facility] Comment on above: Performed By: #### N BOX #### [facility] [address] [place] [address] Dr. Narciso Amaral Neutrophils/100 WBC (Bld) 65.9 % Normal 43.0-75.0 [facility] Comment on above: Performed By: #### N BOX #### [facility] [address] [place] [address] Dr. Narciso Amaral Platelet mean volume (Bld) [Entitic vol] 9.7 fL Normal 9.5-13.5 [facility] Comment on above: Performed By: #### N BOX #### [facility] [address] [place] [address] Dr. Narciso Amaral PLT 199 103/ul Normal 150-450 [facility] Comment on above: Performed By: #### N BOX #### [facility] [address] [place] [address] Dr. Narciso Amaral RBC 4.71 106/ul Normal 4.20-5.40 [facility] Comment on above: Performed By: #### N BOX #### [facility] [address] [place] [address] Dr. Narciso Amaral WBC 7.1 103/ul Normal 4.0-11.0 [facility] Comment on above: Performed By: #### N BOX #### [facility] [address] [place] [address] Dr. Narciso WILL URINE PROFILEon 2 Bilirubin Ql (U) Negative Normal NEGATIVE [facility] Comment on above: Performed By: #### E RUR #### [facility] [address] [place] [address] Dr. Narciso Amaral Clarity (U) SL CLOUDY Abnormal CLEAR [facility] Comment on above: Performed By: #### E RUR #### [facility] [address] [place] [address] Dr. Narciso Amaral Color (U) YELLOW Normal YELLOW [facility] Comment on above: Performed By: #### E RUR #### [facility] [address] [place] [address] Dr. Narciso MCCLELLNA A micrscopic examination will be performed if indicated. Normal [facility] Comment on above: Performed By: #### E RUR #### [facility] [address] [place] [address] Dr. Narciso Amaral Glucose Ql (U) Negative Normal NEGATIVE [facility] Comment on above: Performed By: #### E RUR #### [facility] [address] [place] [address] Dr. Narciso Amaral Hemoglobin Ql (U) Negative Normal NEGATIVE [facility] Comment on above: Performed By: #### E RUR #### [facility] [address] [place] [address] Dr. Narciso Amaral Ketones Ql (U) >=80 Abnormal NEGATIVE [facility] Comment on above: Performed By: #### E RUR #### [facility] [address] [place] [address] Dr. Narciso Amaral LEUKOCYTES Negative Normal NEGATIVE [facility] Comment on above: Performed By: #### E RUR #### [facility] [address] [place] [address] Dr. Narciso Amaral Nitrite Ql (U) Negative Normal NEGATIVE [facility] Comment on above: Performed By: #### E RUR #### [facility] [address] [place] [address] Dr. Narciso Amaral pH (U) 6.0 [pH] Normal 5-9 [facility] Comment on above: Performed By: #### E RUR #### [facility] [address] [place] [address] Dr. Narciso Amaral SPEC GRAVITY >=1.030 Abnormal 1.005-<=1.025 [facility] Comment on above: Performed By: #### E RUR #### [facility] [address] [place] [address] Dr. Narciso Amaral UA PROTEIN TRACE Normal NEGATIVE/ TRACE [facility] Comment on above: Performed By: #### E RUR #### [facility] [address] [place] [address] Dr. Narciso Amaral UR MICRO IND NOT INDICATED Normal [facility] Comment on above: Performed By: #### E RUR #### [facility] [address] [place] [address] Dr. Narciso Amaral Urobilinogen Qn (U) 1.0 {Maggy'U}/dL Normal 0.2 - 1. 0 [facility] Comment on above: Performed By: #### E RUR #### [facility] [address] [place] [address] Dr. Narciso Amaral PROF 14(COMP METB)on 022 Albumin [Mass/Vol] 4.6 g/dL Normal 3.5-5.0 [facility] Comment on above: Performed By: #### C BC #### [facility] [address] [place] [address] Dr. Narciso Amaral Albumin/Globulin [Mass ratio] 1.0 {ratio} Normal [facility] Comment on above: Performed By: #### C BC #### [facility] [address] [place] [address] Dr. Narciso Amaral ALP [Catalytic activity/Vol] 54 U/L Normal 38-126 [facility] Comment on above: Performed By: #### C BC #### [facility] [address] [address] [address] Narciso Amaral ALT [Catalytic activity/Vol] 12 U/L Normal 9-52 [facility] Comment on above: Performed By: #### C BC #### [facility] [address] [place] [address] Dr. Narciso Amaral Anion gap [Moles/Vol] 14.8 mmol/L Normal [facility] Comment on above: Performed By: #### C BC #### [facility] [address] [place] [address] Dr. Narciso Amaral AST [Catalytic activity/Vol] 11 U/L Critically low 14-36 [facility] Comment on above: Performed By: #### C BC #### [facility] [address] [place] [address] Dr. Narciso Amaral Bilirubin [Mass/Vol] 0.9 mg/dL Normal 0.2-1.3 [facility] Comment on above: Performed By: #### C BC #### [facility] [address] [place] [address] Dr. Narciso Amaral Calcium [Mass/Vol] 9.6 mg/dL Normal 8.4-10.2 [facility] Comment on above: Performed By: #### C BC #### [facility] [address] [place] [address] Dr. Narciso Amaral Chloride [Moles/Vol] 98 mmol/L Normal 98-107 [facility] Comment on above: Performed By: #### C BC #### [facility] [address] [place] [address] Dr. Narciso Amaral CO2 [Moles/Vol] 27.3 mmol/L Normal 22.0-30.0 The [facility] Comment on above: Performed By: #### C BC #### [facility] [address] [place] [address] Dr. Narciso Amaral Creatinine [Mass/Vol] 0.55 mg/dL Normal 0.52-1.04 [facility] Comment on above: Performed By: #### C BC #### [facility] [address] [place] [address] Dr. Narciso Amaral EGFR-AF GIBRALTARIAN >60 Normal >=60 [facility] Comment on above: Performed By: #### C BC #### [facility] [address] [place] [address] Dr. Narciso Amaral EGFR-NON AF GIBRALTARIAN >60 Normal >=60 [facility] Comment on above: Performed By: #### C BC #### [facility] [address] [address] [address] Narciso Amaral Globulin (S) [Mass/Vol] 4.7 g/dL Normal [facility] Comment on above: Performed By: #### C BC #### [facility] [address] [address] [address] Narciso Amaral Glucose [Mass/Vol] 87 mg/dL Normal 74-106 [facility] Comment on above: Performed By: #### C BC #### [facility] [address] [place] [address] Dr. Narciso Amaral Potassium [Moles/Vol] 3.1 mmol/L Critically low 3.4-5.0 [facility] Comment on above: Performed By: #### C BC #### [facility] [address] [place] [address] Dr. Narciso Amaral Protein [Mass/Vol] 9.3 g/dL Critically high 6.1-8.2 [facility] Comment on above: Performed By: #### C BC #### [facility] [address] [place] [address] Dr. Narciso Amaral Sodium [Moles/Vol] 137 mmol/L Normal 137-145 [facility] Comment on above: Performed By: #### C BC #### [facility] [address] [address] [address] Narciso Amaral Urea nitrogen [Mass/Vol] 11.0 mg/dL Normal 7.0-17.0 [facility] Comment on above: Performed By: #### C BC #### [facility] [address] [place] [address] Dr. Narciso Amaral Urea nitrogen/Creatinine [Mass ratio] 20.0 mg/mg Normal [facility] Comment on above: Performed By: #### C BC #### [facility] [address] [address] [address] Narciso Amaral US PREG TVon 06-17-2021 [...] by: KRISTINA ESTRADA Date: 2021-06-17 17:29 Normal [facility] Vital Signs Date Time Vital Sign Value Performing Clinician Facility 05-31-2023 08:51-0500 Body mass index (BMI) [Ratio] 22.85 kg/m2 Lydia DOLAN Work Phone: [facility] 05-31-2023 08:51-0500 Body weight 60.38 kg Lydia DOLAN Work Phone: [facility] 05-31-2023 08:51-0500 Diastolic blood pressure 66 mm[Hg] Lydia DOLAN Work Phone: [facility] 05-31-2023 08:51-0500 Systolic blood pressure 102 mm[Hg] Lydia DOLAN Work Phone: [facility] 01-03-2023 20:48-0400 Diastolic blood pressure 66 mm[Hg] Kemal Sharma [facility] 01-03-2023 20:48-0400 Heart rate 68 /min Kemal Sharma [facility] 01-03-2023 20:48-0400 Respiratory rate 18 /min Kemal Sharma [facility] 01-03-2023 20:48-0400 SaO2% (BldA) [Mass fraction] 99 % Kemal Zachary [facility] 01-03-2023 20:48-0400 Systolic blood pressure 110 mm[Hg] Kemal Zachary [facility] 01-03-2023 19:55-0400 Hourly Rounding Kemal Zachary [facility] 01-03-2023 19:53-0400 Diastolic blood pressure 71 mm[Hg] Kemal Zachary [facility] 01-03-2023 19:53-0400 Heart rate 70 /min Kemal Zach[facility] 01-03-2023 19:53-0400 Respiratory rate 18 /min Kemal [facility] 01-03-2023 19:53-0400 SaO2% (BldA) [Mass fraction] 99 % Kemal Zachary [facility] 01-03-2023 19:53-0400 Systolic blood pressure 106 mm[Hg] Kemal Zachary [facility] 01-03-2023 18:55-0400 Diastolic blood pressure 74 mm[Hg] Keaml Zachary [facility] 01-03-2023 18:55-0400 Heart rate 74 /min Kemal Zachary [facility] 01-03-2023 18:55-0400 Hourly Rounding Kemal Zachary [facility] 01-03-2023 18:55-0400 Respiratory rate 16 /min Kemal [facility] 01-03-2023 18:55-0400 SaO2% (BldA) [Mass fraction] 99 % Kemal Zachary [facility] 01-03-2023 18:55-0400 Systolic blood pressure 108 mm[Hg] Kemal Zachary [facility] 01-03-2023 17:55-0400 Hourly Rounding Kemal Sharma [facility] 01-03-2023 17:55-0400 Promise to Return Kemal Zachary [facility] 01-03-2023 16:55-0400 Body temperature 98.06 [degF] Kemal Sharma [facility] 08-25-2021 20:06-0400 Body weight 51.[address] TONI WATKINS [facility] Comment on above: Performed By: #### CBC #### [facility] [address] [place] [address] Dr. Narciso Amaral Encounters Encounter Date Encounter Type Care Provider Facility Start: 05-31-2023 End: 05-31-2023 ambulatory LYDIA GALLO Not Available Start: 05-31-2023 End: 05-31-2023 flow sheet Lydia DOLAN Work Phone: [facility] Comment on above: Third trimester preg jordana Start: 05-06-2023 End: 05-06-2023 ambulatory TONI TRES Not Available Start: 04-28-2023 End: 04-29-2023 ambulatory LYDIA GALLO [facility] Start: 04-28-2023 End: 04-28-2023 Subsequent hospital visit by physician [facility] Start: 04-12-2023 End: 04-12-2023 ambulatory LYDIA GALLO Not Available Start: 03-08-2023 End: 03-08-2023 ambulatory TONI TRES Not Available Start: 01-03-2023 End: 01-03-2023 Emergency department patient visit Kemal Sharma Facility:[facility] Start: 01-03-2023 End: 01-03-2023 Emergency department patient visit Kemal Sharma [facility] Start: 01-21-[address] TONI WATKINS Facility :[facility] Start: 01-14-[address] TONI WATKINS Facility [...] End: 10-28-2021 Subsequent hospital visit by physician [facility] Start: 10-17-[address] TONI WATKINS [...] Treatment Date Care Activity Detail Author Start: 06-17-2023 End: 06-17-2023 Patient encounter procedure 06/17/2023 10:10 AM EST Routine [facility] [address] [place] [address] Toni Watkins, [address] [address] [facility] Start: 05-31-2023 End: 05-31-2023 Patient encounter procedure 05/31/2023 12:30 PM EST Routine [facility] [address] [id number] [facility] Start: 05-04-2023 End: 05-04-2023 Patient encounter procedure 05/04/2023 1:30 PM EST Rout[facility] [address] [facility] [address] [place] [address] [facility] Start: 11-24-2022 Influenza vaccination Flu vaccine (# 1) [facility] Start: 12-25-2021 Influenza vaccination Flu vaccine (# 1) [facility] Start: 2017 Screening for malign ant neoplasm of cervix Pap smear [facility] Start: 08-01-2015 DTaP/Tdap/Td vaccine (1 - Tdap) DTaP/Tdap/Td vaccine (1 - Tdap) [facility] Start: 2014 Hepatitis C screening Hepatitis C sc reen [facility] Start: 08-01-2011 HIV screening HIV screen [facility] Start: 2008 Depression Screen Depression Screen [facility] Start: 08-01-2007 HPV vaccine (1 - 2-d ose series) HPV vaccine (1 - 2-dose series) [facility] Start: 2001 COVID-19 Vaccine (1) COVID-19 Vaccin e (1) [facility] Start: 1997 Varicella vaccine (1 of 2 - 2-dose childhood series) Varicella vaccine (1 of 2 - 2-dose childhood series) [facility] Start: 01-30-1997 COVID-19 Vaccine (#1) COVID-19 Vacci ne (#1) [facility] Start: 1996 Hepatitis B vaccine (1 of 3 - 3-dose series) Hepatitis B vaccine (1 of 3 - 3-dose series) [facility] Payers Date Payer Category Payer Unknown 1996 Unknown [id number] 2.16.84 [id number] 1996 Unknown [id number] 2.16.84 [id number] 1996 Unknown [id number] 2.16.84 0.1.058153.3.579.2.593 1996 Unknown [id number] 2.16.84 0.1.547277.3.579.2.593 1996 Unknown [id number] 2.16.84 0.1.735023.3.579.2.593 1996 Unknown [id number] 2.16.84 0.1.552631.3.579.2.593 1996 Unknown [id number] 2.16.84 0.1.302662.3.579.2.593 1996 Unknown [id number] 2.16.84 0.1.796256.3.579.2.593 1996 Unknown [id number] 2.16.84 0.1.041039.3.579.2.593 1996 Unknown [id number] 2.16.84 0.1.112841.3.579.2.593 1996 Unknown [id number] 2.16.84 0.1.957422.3.579.2.593 1996 Unknown [id number] 2.16.84 0.1.192675.3.579.2.593 1996 Unknown [id number] 2.16.84 0.1.385637.3.579.2.593 1996 Unknown [id number] 2.16.84 0.1.246756.3.579.2.593 1996 Unknown [id number] 2.16.84 0.1.087633.3.579.2.593 1996 Unknown [id number] 2.16.84 0.1.144886.3.579.2.593 1996 Unknown [id number] 2.16.84 0.1.771560.3.579.2.593 1996 Unknown [id number] 2.16.8 40.1.219681.3.579.2.727 1996 Unknown [id number] 2.16.8 40.1.989403.3.579.2.174 1996 Unknown [id number] 2.16.84 0.1.311629.3.579.2.1259 1996 Unknown [id number] 2.16.84 0.1.146336.3.579.2.1259 1996 Unknown [id number] 2.16.840 .1.822955.3.579.2.1259 1996 Unknown [id number] 2.16.840. 1.168353.3.579.2.1259 1959 Self-pay [id number] 1959 Self-pay 1959 Unknown [id number] Unknown [id number] 2.16.84 0.1.984302.3.579.2.593 Social History Date Type Detail Facility Tobacco smoking status NHIS Tobacco smoking consumption unknown [employer] Work Phone: Start: 1996 Sex Assigned At Not on file [employer] Work Phone: Start: 04-05-2021 End: 04-07-2023 Tobacco smoking status Never smoked tobacco (finding) [facility] Tobacco smoking status Never [facility] Start: 04-20-2023 Sex Assigned At Female [facility] Start: 04-07-2023 Tobacco use and exposure Smokeless tobacco non-user [employer] Start: 04-20-2023 Alcohol intake Lifetime non-d jay (finding) [employer] Start: 04-20-2023 History of Social function [employer] Start: 11-12-2022 [facility] [employer] NEGATED: Highlighted rowStart: NINF History of tobacco use Passive smoker [employer] Functional Status Date Assessment Result Facility 01-03-2023 Functional Status N/A [facility] History of Present illness Narrative 05-31-2023 MAGDALENO Garsia - 05/31/2023 8:30 AM EST Note Date & Type Note Facility 05-31-2023 History of Presen t illness Narrative Reason for Appointment: Patient ID: Graciela Olivarez is a 27 y.o. female who presents for Routine Visit Patient presents today for Return OB appointment. Patient presents today for a routine obstetrics appointment. Patient is currently 30w4d with a Estimated Date of Delivery: 08/05/23. Current Medications: has a current medication list which includes the following prescription(s): progesterone, vit w/ fe bisg-fa, 19, and progesterone. 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 Social History Tobacco Use Smoking status: Not on file Smokeless tobacco: Not on file Substance Use Topics Alcohol use: Not on file Drug use: Not on file Past Surgical History: Procedure Laterality Date PAP SMEAR 08/18/2021 Allergies Allergen Reactions Amoxicillin Penicillins Rash and Unknown Review of Systems: Review of Systems Constitutional: Negative. HENT: Negative. Eyes: Negative. Respiratory: Negative. Cardiovascular: Negative. Gastrointestinal: Negative. Genitourinary: Negative. Musculoskeletal: Negative. Skin: Negative. Neurological: Negative. All other systems reviewed and are negative. Hematological: Negative. Endocrine: Negative. Allergic/Immunologic: Negative. Objective Physical Exam Constitutional: Appearance: Normal appearance. She is normal weight. HENT: Head: Normocephalic. Cardiovascular: Rate and Rhythm: Normal rate. Pulses: Normal pulses. Pulmonary: Effort: Pulmonary effort is normal. Breath sounds: Normal breath sounds. Abdominal: Palpations: Abdomen is soft. Musculoskeletal: General: Normal range of motion. Neurological: General: No focal deficit present. Mental Status: She is alert and oriented to person, place, and time. Psychiatric: Mood and Affect: Mood normal. Behavior: Behavior normal. Thought Content: Thought content normal. Judgment: Judgment normal. Vitals and nursing note reviewed. Vitals: Estimated body mass index is 22.85 kg/m as calculated from the following: Height as of 02/04/23: 5' 4 . Weight as of this encounter: 133 lb 1.9 oz. BP: 102/66 Patient's last menstrual period was 10/29/2022. Assessment/Plan Encounter Diagnosis Name Primary? Third trimester Pt doing well , just returned back from vacation and states received a steroid while in [place] for shortened cervix. Pt to have nst , bpp and repeat cervical length today. Patient presents today for a routine obstetrics appointment. Patient is currently 30w4d . Patient states she is doing well but has complaints of being tired due to current . Patient has verbalizes frequent movement. labor precautions was discussed/given and patient was instructed to perform kick counts three times a day. Follow Up: Patient is to return to office in 2 week for routine OB appointment. Documented by MAGDALENO Garsia on behalf of: MAGDALENO Garsia documented in this encounter [facility] Discharge instructions 01-03-2023 Note Date & Type Note Facility 01-03-2023 Hospital Discharg e instructions Patient Education 01/03/2023 20:50:05 Morning Sickness, Xjgy-vc-[id number] Morning Sickness Morning sickness is when you [...] Follow these instructions at home: Medicines Take qamv-yap-ttggkne and prescription medicines only as told by [...] provider. Document Revised: 11/25/2020 Document Reviewed: 11/04/2020 [employer] Patient Education 2022 [employer]. Follow Up Care 01/03/2023 16:18:17 With:Toni WATKINS Address: [address] , [place] [address]- Business (1) When:01/06/2023 20:40:46 [facility] Evaluation + Plan note 01-03-2023 Note [...] discharged home with instructions to follow with [facility] and is to return to the ED with any new or worsening symptoms. Patient voices understanding is agreeable to plan [facility] Evaluation note Note Date & Type Note Facility Evaluation note Diagnosis Third trimester state, incidental documented in this encounter [facility] Hospital course Narrative Note Date & Type Note Facility Hospital course Narrative No data available for this section [facility] Progress note Note Date & Type Note Facility Progress note No data available for this section [facility] Summary Purpose Family History No Family History Records FoundNo Family History Records FoundNo Family History Records FoundNo Family History Records Found Advance Directives No Advanced Directives Records FoundNo Advanced Directives Records FoundNo Advanced Directives Records FoundNo Advanced Directives Records Found Additional Source Comments INFORMATION SOURCE (unrecogn ized section and content) DATE CREATED AUTHOR 01/21/2022 [facility] DATE CREATED AUTHOR AUTHOR'S ORGANIZ ATION 01/07/2023 [facility] DATE CREATED AUTHOR AUTHOR'S ORGANIZ ATION 04/29/2023 Nancy Rodriguez [facility]imir[facility] DATE CREATED AUTHOR AUTHOR'S ORGANIZ ATION 05/31/2023 [facility] Patient Care team informatio n (unrecognized section and content) Personnel Name: Gloria CASTELLANOS CNP Address: Address: [address] [place] [address] Dr. Blake, [facility] Reason for Visit (unrecogniz ed section and content) Reason Comments Routine Visit FOR RECORDS PERTAINING TO PATIENTS WHO ARE [...] BE BASED ON THE PRIMARY CLINICAL RECORDS. [facility] [facility]. provides no warranty or guarantee of the accuracy or completeness of information in this document.
== END 2023-05-31 10:51 | disposition home or self-care (01) ==
LOC: US 08:11 → FBC 09:52
PROVIDERS: Visit Provider Obstetrics & Gynecology
DX: Z36.86 Encounter for antenatal screening for cervical length (principal); Z3A.30 30 weeks gestation of pregnancy
CPT/HCPCS: 76817; 76818

== ENCOUNTER 2023-06-14 07:20 | Outpatient (OUT) | payer BC, SELFPAY ==
--- OUTSIDE RECORDS SUMMARY | 2023-06-14 07:41 | XMS_ITS | CCD ---
Author Name Unknown Address [address] [place] [address] Organization [facility] Care Team Providers Care Information Resources Manager Name Role Phone Unavailable Primary Care Provider [...] TRES, DR MUÑOZ Consulting Unavailable TRES, DR UMÑOZ Attending Unavailable REQUEST, NONE LISTED Primary Care [...] Admitting Unavailable Gloria CASTELLANOS Primary Care Physician Kemal Sharma Attending Unavailable Unavailable Primary Care Provider Unavailjarett e LYDIA GALLO Referring Unavailable TONI WATKINS Attending Unavailable LYDIA GALLO Attending Unavailable TRES, TONI Attending Unavailable LYDIA GALLO Attending Unavailable Unavailable Primary Care Provider Unavailabl e Allergies Allergy Classification Reported Allergen(s) Allergy Type Date of Onset Reaction(s) Facility (2 sources) Amoxicillin; Translations: [amoxicillin] Drug Allergy 2 [facility] Repository (3 sources) Amoxicillin; Translations: [amoxicillin] Drug Allergy 3 rash [facility] [place] (1 source) Penicillins Propensity to adverse reactions to drug 3 Rash [facility] (2 sources) Penicillins Drug Allergy 3 [...] hours., # 16 tab(s), Refills(s) 1, [id number], 168, cm, 04/09/20 15:23:00 EST, Height/Length Dosing, 50.7, kg, 04/09/20 15:23:00 EST, Weight Dosing Start Date: 04/09/20 Status: Ordered Zofran ODT 4 mg Tab-Dis (1 source) Start: 06-09-2021 take 1 tablet by mouth every six hours as needed for nausea Zofran ODT 4 mg Tab-Dis 4 mg = 1 tab(s), Oral, q6hr, PRN Nausea/Vomiting, # 12 tab(s), Refills(s) 0, [facility], 165.1, cm, 06/09/21 2:43:00 EST, Height/Length Dosing, [...] applicable or unspecified; Translations: [MAT CARE OTH [place] FTL GRTH 3RD TM UNS] Onset: 12-31-2021 [...] (Bld) 1 % 0 - 2 % [facility] Eosinophils (Bld) [#/Vol] 0.04 10*3/uL [facility] Eosinophils/100 WBC (Bld) 1 % 0 - 5 % [facility] Erythrocyte distribution width (RBC) [Ratio] 11.8 % Low 12.1 - 15.2 % [facility] Hematocrit (Bld) [Volume fraction] 35.4 % Low 36.0 - 46.0 % [facility] Hemoglobin (Bld) [Mass/Vol] 11.9 g/dL Low 12.0 - 16.0 g/dL [facility] Immature granulocytes (Bld) [#/Vol] 0.04 10*3/uL [facility] Immature granulocytes/100 WBC (Bld) 1 % 0 - 5 % [facility] Interpretation and review of laboratory results Abnormal [facility] Lymphocytes/100 WBC (Bld) 24 % 15 - 40 % [facility] Lymphocytes/100 WBC (Bld) 1.53 % [facility] MCH (RBC) [Entitic mass] 32.9 pg 26.0 - 34.0 pg [facility] MCHC (RBC) [Mass/Vol] 33.6 g/dL 31.0 - 37.0 g/dL [facility] MCV (RBC) [Entitic vol] 97.8 fL 80.0 - 100.0 fL [facility] Monocytes/100 WBC (Bld) 6 % 4 - 8 % [facility] Monocytes/100 WBC (Bld) 0.41 % [facility] Neutrophils/100 WBC (Bld) 67 % 47 - 75 % [facility] Platelet mean volume (Bld) [Entitic vol] 9.5 fL 6.0 - 12.0 fL [facility] Platelets (Bld) [#/Vol] 155 10*3/uL [facility] RBC (Bld) [#/Vol] 3.62 10*6/uL Low 4.00 - 5.2 0 m/uL [facility] Segmented neutrophils/100 WBC (Bld) 4.37 % [facility] WBC other (Bld) [#/Vol] 6.4 [facility] CBC with Diffon 04-28-2023 Abs. Basophil 0.03 k/uL Normal 0.00-0.20 [facility] Comment on above: Performed By: #### C DP, GLUSC #### [facility] [address] [place] [address] Tiger Machine Operator: Greg Castillo MD Abs.Imm.Granulocyte 0.04 k/uL Normal 0.00-0.30 [facility] Comment on above: Performed By: #### C DP, GLUSC #### [facility] [address] [place] [address] [employer] Machine Operator: Greg Castillo MD Abs.Neutrophil (Seg) 4.37 k/uL Normal 2.5-7.0 [facility] Comment on above: Performed By: #### C DP, GLUSC #### [facility] [address] [place] [address] Tiger Machine Operator: Greg Castillo MD Basophils/100 WBC (Bld) 1 % Normal 0-2 [facility] Comment on above: Performed By: #### C DP, GLUSC #### [facility] [address] [place] [address] [employer] Machine Operator: Greg Castillo MD Eosinophils (Bld) [#/Vol] 0.04 10*3/uL Normal 0.00-0.40 [facility] Comment on above: Performed By: #### C DP, GLUSC #### [facility] [address] [place] [phone] Tiger Machine Operator: Greg Castillo MD Eosinophils/100 WBC (Bld) 1 % Normal 0-5 [facility] Comment on above: Performed By: #### C DP, GLUSC #### [facility] [address] [place] [address] Tiger Machine Operator: Greg Castillo MD Erythrocyte distribution width (RBC) [Ratio] 11.8 % Low 12.1-15.2 [facility] Comment on above: Performed By: #### C DP, GLUSC #### [facility] [address] [place] [phone] [employer] Machine Operator: Greg Castillo MD Hematocrit (Bld) [Volume fraction] 35.4 % Low 36.0-46.0 [facility] Comment on above: Performed By: #### C DP, GLUSC #### [facility] [address] [place] [address] Tiger Machine Operator: Greg Castillo MD Hemoglobin (Bld) [Mass/Vol] 11.9 g/dL Low 12.0-16.0 [facility] Comment on above: Performed By: #### C DP, GLUSC #### [facility] [address] [place] [phone] Tiger Machine Operator: Greg Castillo MD Immature granulocytes/100 WBC (Bld) 1 % Normal 0-5 [facility] Comment on above: Performed By: #### C DP, GLUSC #### [facility] [address] [place] [phone] [employer] Machine Operator: Greg Castilol MD Lymphocytes (Bld) [#/Vol] 1.53 10*3/uL Normal 1.00-4.80 [facility] Comment on above: Performed By: #### C DP, GLUSC #### [facility] [address] [place] [address] Tiger Machine Operator: Greg Castillo MD Lymphocytes/100 WBC (Bld) 24 % Normal 15-40 [facility] Comment on above: Performed By: #### C DP, GLUSC #### [facility] [address] [place] [phone] Tiger Machine Operator: Greg Castillo MD MCH (RBC) [Entitic mass] 32.9 pg Normal 26.0-34.0 [facility] Comment on above: Performed By: #### C DP, GLUSC #### [facility] [address] [place] [address] Tiger Machine Operator: Greg Castillo MD MCHC (RBC) [Mass/Vol] 33.6 g/dL Normal 31.0-37.0 [facility] Comment on above: Performed By: #### C DP, GLUSC #### [facility] [address] [place] [phone] Tiger Machine Operator: Greg Castillo MD MCV (RBC) [Entitic vol] 97.8 fL Normal 80.0-100.0 [facility] Comment on above: Performed By: #### C DP, GLUSC #### [facility] [address] [place] [phone] Tiger Machine Operator: Greg Castillo MD Monocytes (Bld) [#/Vol] 0.41 10*3/uL Normal 0.00-1.00 [facility] Comment on above: Performed By: #### C DP, GLUSC #### [facility] [address] [place] [phone] Tiger Machine Operator: Greg Castillo MD Monocytes/100 WBC (Bld) 6 % Normal 4-8 [facility] Comment on above: Performed By: #### C DP, GLUSC #### [facility] [address] [place], [place] [phone] Tiger Machine Operator: Greg Castillo MD Neutrophil (Seg) 67 % Normal 47-75 [facility] Comment on above: Performed By: #### C DP, GLUSC #### [facility] [address] [place], [place] [phone] Tiger Machine Operator: Greg Castillo MD Platelet mean volume (Bld) [Entitic vol] 9.5 fL Normal 6.0-12.0 [facility] Comment on above: Performed By: #### C DP, GLUSC #### [facility] [address] [place] [address] Tiger Machine Operator: Greg Castillo MD Platelets (Bld) [#/Vol] 155 10*3/uL Normal 140-450 [facility] Comment on above: Performed By: #### C DP, GLUSC #### [facility] [address] [place], [place] [phone] Tiger Machine Operator: Greg Castillo MD RBC (Bld) [#/Vol] 3.62 10*6/uL Low 4.00-5.20 [facility] Comment on above: Performed By: #### C DP, GLUSC #### [facility] [address] [place], [place] [phone] ([phone] Tiger Machine Operator: Greg Castillo MD WBC (Bld) [#/Vol] 6.4 10*3/uL Normal 3.5-11.0 [facility] Comment on above: Performed By: #### C DP, GLUSC #### [facility] [address] [place], [place] [phone] Tiger Machine Operator: Greg Castillo MD Glucose David Scr 50gon 2023 Glucose [Mass/Vol] 108 mg/dL Normal 70-135 [facility] Comment on above: Performed By: #### C DP, GLUSC #### [facility] [address] [place] [address] Tiger Machine Operator: Greg Castillo MD Glu Administered via Glucola [facility] Comment on above: Performed By: #### C DP, GLUSC #### [facility] [address] [place] [address] Tiger Machine Operator: Greg Castillo MD Glucose tolerance, 1 houron 04-28-2023 GLU ADMN Glucola [facility] Glucose 1 Hr post 50 g glucose PO [Mass/Vol] 108 mg/dL 70 - 135 mg/dL [facility] Discharge Instructionson Discharge Instructions [id number]#1.00CD:127 Normal [facility] Auto Diffon 01-03-2023 Basophils/100 WBC (Bld) 0.5 % Normal 0.0-2.0 [facility] Comment on above: Order Comment: Order Added by Discern Expert. Performed By: #### 2 [id number], [id number], [id number], [id number] #### [facility] [address] [place] [address] Basophils/Leukocytes Auto (Bld) [Pure # fraction] 0.0 E9/L Normal 0.0-0.2 [facility] Comment on above: Order Comment: Order Added by Discern Expert. Performed By: #### 2 269345, 4827648, [id number], [id number] #### [facility] [address] [place] [address] Eosinophils/100 WBC (Bld) 0.3 % Normal 0.0-8.0 [facility] Comment on above: Order Comment: Order Added by Discern Expert. Performed By: #### 2 227769, 7033308, 20079388, 6267276 #### [facility] [address] [place] [address] Eosinophils/Leukocyte s Auto (Bld) [Pure # fraction] 0.0 E9/L Normal 0.0-0.5 [facility] Comment on above: Order Comment: Order Added by Discern Expert. Performed By: #### 2 140606, 9561169, [id number], [id number] #### [facility] [address] [place] [address] Lymphocytes/100 WBC (Bld) 29.1 % Normal 14.0-50.0 [facility] Comment on above: Order Comment: Order Added by Discern Expert. Performed By: #### 2 849181, 8724634, 05261608, 7692259 #### [facility] [address] [place] [address] Lymphocytes/Leukocyte s Auto (Bld) [Pure # fraction] 1.7 E9/L Normal 1.0-4.0 [facility] Comment on above: Order Comment: Order Added by Kya Expert. Performed By: #### 2 084839, 7548901, 21373927, 9820327 #### [facility] [address] [place] [address] Monocytes/100 WBC (Bld) 5.1 % Normal 4.0-14.0 [facility] Comment on above: Order Comment: Order Added by Kya Expert. Performed By: #### 2 292281, 5279129, 41203465, 8451341 #### [facility] [address] [place] [address] Monocytes/Leukocytes Auto (Bld) [Pure # fraction] 0.3 E9/L Normal 0.2-1.0 [facility] Comment on above: Order Comment: Order Added by Discern Expert. Performed By: #### 2 142964, 7809955, 51245541, 7668504 #### [facility] [address] [place] [address] Neutrophils/100 WBC (Bld) 65.0 % Normal 36.0-75.0 [facility] Comment on above: Order Comment: Order Added by Kya Expert. Performed By: #### 2 732932, 9073747, 63620015, 3968463 #### [facility] [address] [place] [address] Neutrophils/Leukocyte s Auto (Bld) [Pure # fraction] 3.8 E9/L Normal 2.0-7.5 [facility] Comment on above: Order Comment: Order Added by Discern Expert. Performed By: #### 2 175753, 4703700, 72746863, 3836381 #### [facility] [address] [place] [address] BMPon 01-03-2023 Creatinine [Mass/Vol] 0.5 mg/dL Normal 0.5-1.3 [facility] Comment on above: Performed By: #### 2 789329, 6444800, 67391178, 4549022 #### [facility] [address] [place] [address] Urea nitrogen [Mass/Vol] 8 mg/dL Normal 5-21 [facility] Comment on above: Performed By: #### 2 365403, 7322891, 72624539, 5912312 #### [facility] [address] [place] [address] Urea nitrogen/Creatinine [Mass ratio] 16 No Units Normal 10-20 [facility] Comment on above: Performed By: #### 2 259251, 3190470, 30248479, 5617172 #### [facility] [address] [place] [address] Anion gap [Moles/Vol] 7 mmol/L Normal 6-16 [facility] Comment on above: Performed By: #### 2 943781, 7861153, 43064711, 9625166 #### [facility] [address] [place] [address] Calcium [Mass/Vol] 9.3 mg/dL Normal 8.9-11.1 [facility] Comment on above: Performed By: #### 2 503669, 5548345, 00092109, 6154831 #### [facility] [address] [place] [address] Chloride [Moles/Vol] 105 mmol/L Normal 101-111 [facility] Comment on above: Performed By: #### 2 338895, 1233170, 00729631, 3273796 #### [facility] [address] [place] [address] CO2 [Moles/Vol] 24 mmol/L Normal 21-31 [facility] Comment on above: Performed By: #### 2 705881, 2496074, 36254395, 8124590 #### [facility] [address] [place] [address] Glucose [Mass/Vol] 108 mg/dL Normal 55-199 [facility] Comment on above: Result Comment: If t his glucose result represents a fasting glucose, interpretation should refer to the following reference range: 55-99 mg/dL Performed By: #### 2 114817, 7065426, 14381171, 6849602 #### [facility] [address] [place] [address] Potassium [Moles/Vol] 3.4 mmol/L Low 3.5-5.3 [facility] Comment on above: Performed By: #### 2 495531, 5532661, 59358947, 3848949 #### [facility] [address] [place] [address] Sodium [Moles/Vol] 133 mmol/L Low 135-145 [facility] Comment on above: Performed By: #### 2 200616, 8571556, 59427626, 4375813 #### [facility] [address] [place] [address] CBC w/ Auto Diffon 3 Erythrocyte distribution width (RBC) [Ratio] 12.5 % Normal 10.9-14.2 [facility] Comment on above: Performed By: #### 2 158921, 2356412, 56310803, 9338109 #### [facility] [address] [place] [address] Hematocrit (Bld) [Volume fraction] 39.8 % Normal 34.0-46.0 [facility] Comment on above: Performed By: #### 2 526269, 9162863, 66587088, 6922191 #### [facility] [address] [place] [address] Hemoglobin (Bld) [Mass/Vol] 14.2 g/dL Normal 12.0-16.0 [facility] Comment on above: Performed By: #### 2 025512, 4151284, 57043821, 9028090 #### [facility] [address] [place] [address] MCH (RBC) [Entitic mass] 31.7 pg Normal 27.0-34.0 [facility] Comment on above: Performed By: #### 2 337399, 6366251, 26620547, 5200990 #### [facility] [address] [place] [address] MCHC (RBC) [Mass/Vol] 35.6 g/dL Normal 31.4-36.0 [facility] Comment on above: Performed By: #### 2 886309, 6541573, 40339470, 8956289 #### [facility] [address] [place] [address] MCV (RBC) [Entitic vol] 89.0 fL Normal 80.0-100.0 [facility] Comment on above: Performed By: #### 2 444839, 3849032, 70289463, 9532106 #### [facility] [address] [place] [address] Platelet mean volume (Bld) [Entitic vol] 7.6 fL Normal 6.4-10.8 [facility] Comment on above: Performed By: #### 2 549792, 3723725, 50607169, 8002199 #### [facility] [address] [place] [address] Platelets (Bld) [#/Vol] 170.0 E9/L Normal 150.0-500.0 [facility] Comment on above: Performed By: #### 2 878372, 2468079, 38131253, 9245422 #### [facility] [address] [place] [address] RBC (Bld) [#/Vol] 4.5 E12/L Normal 4.3-5.9 [facility] Comment on above: Performed By: #### 2 472166, 1754863, 00217281, 3782552 #### [facility] [address] [place] [address] WBC corrected for nucl RBC Auto (Bld) [#/Vol] 5.8 E9/L Normal 4.0-11.0 [facility] Comment on above: Performed By: #### 2 484623, 0926819, 15925394, 2825426 #### [facility] [address] [place] [address] CHEMISTRYOrdered By: SYSTEM SYSTEM on 01-03-2023 Anion gap [Moles/Vol] 7 mmol/L Normal 6 - 16 mEq/L [facility]isol Calcium [Mass/Vol] 9.3 mg/dL Normal 8.9 - 11. 1 mg/dL [facility] Chloride [Moles/Vol] 105 mmol/L Normal 101 - 1 11 mmol/L [facility] CO2 [Moles/Vol] 24 mmol/L Normal 21 - 31 mmol/L [facility] Creatinine [Mass/Vol] 0.5 mg/dL Normal 0.5 - 1.3 mg/dL [facility]isol GFR/1.73 sq M.predicted among non-blacks MDRD (S/P/Bld) [Vol rate/Area] 133 mL/min/1.73 m2 Normal >=59mL/min/1. 73 m2 [facility] Chem S Glucose [Mass/Vol] 108 mg/dL Normal [...] Treatmenton 12-25 Consent for Treatment [id number] #1.00CD:127 Normal [facility] ED Clinical Summaryon 2022 ED Clinical Summary [address] [address] ED Clinical Summary Person Information Name: GRACIELA OLIVAREZ [place] Age: 27 Years : 1995 Sex: Female Language: [place] Islander PCP: Gloria CASTELLANOS CNP Marital Status: Visit [...] 01/03/2023 20:50:04 01/03/2023 20:50:04 01/03/2023 20:50:04 ADDRESS: [address] [place] [id number] [facility] DOC NOTES: MEDICAL INFORMATION: Prescriptions Given: Medications to Continue with No Changes Other Medications ondansetron (Zofran ODT 4 mg Tab-Dis) 1 Tablets By Mouth every 6 hours as needed Nausea/Vomiting. Refills: 0. valacyclovir (valacyclovir 1 g Tab) take 2 tab at first sign of cold sore repeat in 12 hours.. Refills: 1. PATIENT EDUCATION INFORMATION: Instructions: Morning Sickness, Wssy-pf-Rxjj Follow up: With: Address: When: Toni WATKINS [facility], [address] [place] [address] [place] [address] Business (1) In 3 days 01/06/2023 DIAGNOSIS: Nausea/vomiting in Normal [facility] ED Note-Physicianon 01-04-20 ED Note-Physician Basic [...] she is dehydrated. Patient is followed by CAFETERIA MONITOR, Dr. Watkins, has had an ultrasound which [...] discharged home with instructions to follow with CAFETERIA MONITOR and is to return to the ED [...] Toni WATKINS In 3 days 01/06/2023 EDT [facility] [address] [facility] [place] [address] Business (1) Additional Instructions: Patient Education Morning Sickness, Nuzz-wm-Qxqg Attestation Patient was treated and evaluated by the Physician Hand Fur Cleaner. The attending physician was in the Emergency [...] is unknown (more content not included)... Normal [facility] Comment on above: Result Comment: Elec [...] these instructions at home: Medicines ? Take erqm-hfy-qcfvehy and prescription medicines only as told by [...] Reviewed: 11/04/2020 Elsevier Patient Education ? 2022 [employer] Normal [facility] ED Patient Summaryon 023 ED Patient Summary [address] [address] Patient Discharge Instructions Person Information Name: GRACIELA OLIVAREZ Age: 27 Years Arrival Date: 01/03/2023 16:15:39 Discharge Diagnosis: Nausea/vomiting in Primary Care Physician: Gloria CASTELLANOS CNP Provider Information Primary Provider: Kemal Sharma DO [employer] Farmer:Velia Correa PA-C The exam and treatment you received in the Emergency Department were for an urgent problem and are not intended as complete care. It is important that you follow up with a doctor, nurse practitioner, or physician?s assistant district attorney for ongoing care. If your symptoms become worse or you do not improve as expected and you are unable to reach your usual health care provider, you should return to the Emergency Department. We are available 24 hours a day. GRACIELA OLIVAREZ has been given the following list of patient education materials, prescriptions and follow-up instructions: Follow-up Instructions: With: Address: When: Toni WATKINS [facility], [address] [place] [address] [place] [address] Business (1) In 3 days 01/06/2023 In the event that this physician does not participate in your insurance network, please consult with your insurance company to find a nearby participating provider. Patient Education Materials: Morning Sickness, Mqsa-yk-Bkyf A MESSAGE TO ALL PATIENTS REGARDING OPIOIDS PRESCRIPTION OPIOIDS: WHAT YOU NEED TO KNOW Prescription opioids can be used to help relieve vmbdmnqa-vv-qectmk pain and are often prescribed following a [...] be struggling with addiction, tell your health physician primary care sports medicine and ask for guidance or call [facility] [employer] (more content not included)... Normal [facility] HEMATOLOGYOrdered By: SYSTEM SYSTEM on 01-03-2023 [...] 2022 Bilirubin Ql (U) 1+ Abnormal Negative [facility] Comment on above: Performed By: #### 1 [id number] #### [facility] [address] [place] [address] Clarity (U) CLEAR Normal Clear [facility] Comment on above: Performed By: #### 1 [id number] #### [facility] [address] [place] [address] Color (U) YELLOW Normal Yellow [facility] Comment on above: Performed By: #### 1 [id number] #### [facility] [address] [place] [address] Epithelial cells.squamous LM.HPF (Urine sed) [#/Area] 3-4 Normal 0-2 [facility] Comment on above: Performed By: #### 1 [id number] #### [facility] [address] [place] [address] Glucose Test strip (U) [Mass/Vol] Negative Normal Negative [facility] Comment on above: Performed By: #### 1 [id number] #### [facility] [address] [place] [address] Hemoglobin Ql (U) 2+ Abnormal Negative [facility] Comment on above: Performed By: #### 1 [id number] #### [facility] [address] [place] [address] Ketones (U) [Mass/Vol] 2+ Abnormal Negative [facility] Comment on above: Performed By: #### 1 [id number] #### [facility] [address] [place] [address] [place].plasma/Lithiu m.RBC (Bld) [Mass ratio] 0-3 Normal 0-3 [facility] Comment on above: Performed By: #### 1 [id number] #### [facility] [address] [place] [address] Mucus Ql (Urine sed) 2+ Normal [facility] Comment on above: Performed By: #### 1 [id number] #### [facility] [address] [place] [address] Nitrite Ql (U) Negative Normal Negative [facility] Comment on above: Performed By: #### 1 [id number] #### [facility] [address] [place] [address] pH (U) 6.0 [pH] Invalid Interpretation Code 5.0-9.0 [facility] Comment on above: Performed By: #### 1 [id number] #### [facility] [address] [place] [address] Protein (U) [Mass/Vol] 1+ Abnormal Negative [facility] Comment on above: Performed By: #### 1 [id number] #### [facility] [address] [place] [address] Specific gravity (U) [Rel density] >=1.030 Invalid Interpretation Code 1.005-1.030 [facility] Comment on above: Performed By: #### 1 [id number] #### [facility] [address] [place] [address] Type of Urine collection method Clean Catch Normal [facility] Comment on above: Performed By: #### 1 [id number] #### [facility] [address] [place] [address] Urobilinogen Qn (U) 1.0 {Maggy'U}/dL Normal 0.0-1.0 [facility] Comment on above: Performed By: #### 1 [id number] #### [facility] [address] [place] [address] WBC Auto Ql (U) Negative Normal Negative [facility] Comment on above: Performed By: #### 1 [id number] #### [facility] [address] [place] [address] WBC LM.HPF (Urine sed) [#/Area] 0-5 Normal 0-5 [facility] Comment on above: Performed By: #### 1 [id number] #### [facility] [address] [place] [id number] URINALYSISOrdered By: Dianne Ortiz on 01-03-2023 Bilirubin [...] Interpretation Code Negative [facility] UA Auto SS [place].plasma/Lithiu m.RBC (Bld) [Mass ratio] 0-3 /HPF Normal [...] [facility] UA Auto SS Urobilinogen Qn (U) 1.2133614 {Maggy'U}/dL Normal 0.0 - 1.0 EU/dL [facility] UA Auto SS WBC Auto Ql (U) Negative (01/03/23 5:04 PM) Normal Negative [facility] UA Auto SS WBC LM.HPF (Urine sed) [#/Area] 0-5 /HPF Normal 0-5/HPF [facility] UA Auto SS eGFRon 01-03-2023 GFR/1.73 sq M.predicted among non-blacks MDRD (S/P/Bld) [Vol rate/Area] 133 mL/min/1.73 m2 Normal >=59 [facility] Comment on above: Order Comment: Order added by Discern Expert. Result Comment: [employer] diya kidney disease could be indicated at eGFR's of less than 60 mL/min/1.73m2. Kidney failure is indicated at less than 15 mL/min/1.73m2. Performed By: #### 2 [id number], [id number] #### [facility] [address] [place] [address] CULTURE URINEon 01-10-2022 CULTURE URINE Culture Observations: MODERATE GROWTH OF MIXED GENITAL RIC. NO POTENTIAL PATHOGENS SEEN. Normal [facility] Comment on above: Performed By: #### U RCX #### [facility] [address] [place] [address] Dr. Narciso Amaral UA (CLEAN/CATCH) DIVING JUDGE/MICRO I F IND.on 01-10-2022 Bilirubin Ql (U) Negative Normal NEGATIVE [facility] Comment on above: Performed By: #### U MICRO, UACSIND #### [facility] [address] [place] [address] Dr. Narciso Amaral Clarity (U) CLEAR Normal CLEAR [facility] Comment on above: Performed By: #### U MICRO, UACSIND #### [facility] [address] [place] [address] Dr. Narciso Amaral Color (U) LT. YELLOW Normal YELLOW [facility] Comment on above: Performed By: #### U MICRO, UACSIND #### [facility] [address] [place] [address] Dr. Narciso Amaral Glucose Ql (U) Negative Normal NEGATIVE [facility] Comment on above: Performed By: #### U MICRO, UACSIND #### [facility] [address] [place] [address] Dr. Narciso Amaral Hemoglobin Ql (U) LARGE Abnormal NEGATIVE [facility] Comment on above: Performed By: #### U MICRO, UACSIND #### [facility] [address] [place] [address] Dr. Narciso Amaral Ketones Ql (U) Negative Normal NEGATIVE [facility] Comment on above: Performed By: #### U MICRO, UACSIND #### [facility] [address] [place] [address] Dr. Narciso Amaral LEUKOCYTES TRACE Abnormal NEGATIVE [facility] Comment on above: Performed By: #### U MICRO, UACSIND #### [facility] [address] [address] [address] Narciso Amaral Nitrite Ql (U) Negative Normal NEGATIVE [facility] Comment on above: Performed By: #### U MICRO, UACSIND #### [facility] [address] [address] [address] Narciso Amaral pH (U) 6.0 [pH] Normal 5-9 [facility] Comment on above: Performed By: #### U MICRO, UACSIND #### [facility] [address] [address] [address] Narciso Amaral SPEC GRAVITY <=1.005 Abnormal 1.005-<=1.025 [facility] Comment on above: Performed By: #### U MICRO, UACSIND #### [facility] [address] [place] [address] Dr. Narciso Amaral UA PROTEIN Negative Normal NEGATIVE/ TRACE [facility] Comment on above: Performed By: #### U MICRO, UACSIND #### [facility] [address] [place] [address] Dr. Narciso Amaral UR MICRO IND INDICATED Normal [facility] Comment on above: Performed By: #### U MICRO, UACSIND #### [facility] [address] [address] [address] Narciso Amaral Urobilinogen Qn (U) 0.2 {Maggy'U}/dL Normal 0.2 - 1. 0 [facility] Comment on above: Performed By: #### U MICRO, UACSIND #### [facility] [address] [address] [address] Narciso Amaral URINE MICROSCOPIC ONLYon BACTERIA SMALL Abnormal NONE SEEN [facility] Comment on above: Performed By: #### U MICRO, UACSIND #### [facility] [address] [address] [address] Narciso Amaral Bacteria identified Cx Nom (U) INDICATED Normal [facility] Comment on above: Performed By: #### U MICRO, UACSIND #### [facility] [address] [place] [address] Dr. Narciso Amaral CAST NONE SEEN Normal NONE SEEN [facility] Comment on above: Performed By: #### U MICRO, UACSIND #### [facility] [address] [place] [address] Dr. Narciso Amaral Crystals LM Nom (Urine sed) NONE SEEN Normal NONE SEEN [facility] Comment on above: Performed By: #### U MICRO, UACSIND #### [facility] [address] [place] [address] Dr. Narciso Amaral Epithelial cells LM Ql (Urine sed) FEW Abnormal NONE SEEN /RARE [facility] Comment on above: Performed By: #### U MICRO, UACSIND #### [facility] [address] [place] [address] Dr. Narciso Amaral MUCOUS NONE SEEN Normal NONE SEEN [facility] Comment on above: Performed By: #### U MICRO, UACSIND #### [facility] [address] [place] [address] Dr. Narciso Amaral RBC 5-10 Abnormal 0-2 [facility] Comment on above: Performed By: #### U MICRO, UACSIND #### [facility] [address] [place] [address] Dr. Narciso Amaral WBC 0-2 Abnormal NONE SEEN [facility] Comment on above: Performed By: #### U MICRO, UACSIND #### [facility] [address] [place] [address] Dr. Narciso Amaral CBC AUTO DIFFon 01-09-2022 BASO # 0.0 103/ul Normal 0.0-0.1 [facility] Comment on above: Performed By: #### C BC #### [facility] [address] [place] [address] Dr. Narciso Amaral Basophils/100 WBC (Bld) 0.2 % Normal 0.2-2.0 [facility] Comment on above: Performed By: #### C BC #### [facility] [address] [place] [address] Dr. Narciso Amaral EO # 0.0 103/ul Normal 0.0-0.7 [facility] Comment on above: Performed By: #### C BC #### [facility] [address] [place] [address] Dr. Narciso Amaral Eosinophils/100 WBC (Bld) 0.1 % Critically low 0.9-7.0 [facility] Comment on above: Performed By: #### C BC #### [facility] [address] [place] [address] Dr. Narciso Amaral Erythrocyte distribution width (RBC) [Ratio] 12.8 % Normal 11.0-15.0 [facility] Comment on above: Performed By: #### C BC #### [facility] [address] [place] [address] Dr. Narciso Amaral Hematocrit (Bld) [Volume fraction] 30.8 % Critically low 36.0-48.0 [facility] Comment on above: Performed By: #### C BC #### [facility] [address] [place] [address] Dr. Narciso Amaral Hemoglobin (Bld) [Mass/Vol] 10.0 g/dL Critically low 12.0-16.0 [facility] Comment on above: Performed By: #### C BC #### [facility] [address] [place] [address] Dr. Narciso Amaral IG # 0.02 10e3/ul Normal 0.00-0.03 [facility] Comment on above: Performed By: #### C BC #### [facility] [address] [place] [address] Dr. Narciso Amaral IG % 0.2 % Normal 0.0-0.5 [facility] Comment on above: Performed By: #### C BC #### [facility] [address] [place] [address] Dr. Narciso Amaral LYMPH # 1.4 103/ul Normal 1.2-3.8 [facility] Comment on above: Performed By: #### C BC #### [facility] [address] [place] [address] Dr. Narciso Amaral Lymphocytes/100 WBC (Bld) 14.0 % Critically low 20.5-60.0 [facility] Comment on above: Performed By: #### C BC #### [facility] [address] [place] [address] Dr. Narciso Amaral MANUAL DIFF REQ NO Normal [facility] Comment on above: Performed By: #### C BC #### [facility] [address] [place] [address] Dr. Narciso Amaral MCH (RBC) [Entitic mass] 31.7 pg Normal 26.7-34.0 [facility] Comment on above: Performed By: #### C BC #### [facility] [address] [place] [address] Dr. Narciso Amaral MCHC (RBC) [Mass/Vol] 32.5 g/dL Normal 29.9-35.2 [facility] Comment on above: Performed By: #### C BC #### [facility] [address] [place] [address] Dr. Narciso Amaral MCV (RBC) [Entitic vol] 97.8 fL Normal 81.0-99.0 [facility] Comment on above: Performed By: #### C BC #### [facility] [address] [place] [address] Dr. Narciso Amaral MONO # 0.8 103/ul Normal 0.3-0.8 [facility] Comment on above: Performed By: #### C BC #### [facility] [address] [place] [address] Dr. Narciso Amaral Monocytes/100 WBC (Bld) 8.2 % Normal 1.7-12.0 [facility] Comment on above: Performed By: #### C BC #### [facility] [address] [place] [address] Dr. Narciso Amaral NEUT # 7.9 103/ul Critically high 1.4-6.5 [facility] Comment on above: Performed By: #### C BC #### [facility] [address] [place] [address] Dr. Narciso Amaral Neutrophils/100 WBC (Bld) 77.3 % Critically high 43.0-75.0 [facility] Comment on above: Performed By: #### C BC #### [facility] [address] [place] [address] Dr. Narciso Amaral Platelet mean volume (Bld) [Entitic vol] 9.9 fL Normal 9.5-13.5 [facility] Comment on above: Performed By: #### C BC #### [facility] [address] [place] [address] Dr. Narciso Amaral PLT 143 103/ul Critically low 150-450 [facility] Comment on above: Performed By: #### C BC #### [facility] [address] [place] [address] Dr. Narciso Amaral RBC 3.15 106/ul Critically low 4.20-5.40 [facility] Comment on above: Performed By: #### C BC #### [facility] [address] [place] [address] Dr. Narciso Amaral WBC 10.2 103/ul Normal 4.0-11.0 [facility] Comment on above: Performed By: #### C BC #### [facility] [address] [place] [address] Dr. Narciso Amaral CBC AUTO DIFFon 01-08-2022 BASO # 0.0 103/ul Normal 0.0-0.1 [facility] Comment on above: Performed By: #### C BC #### [facility] [address] [place] [address] Dr. Narciso Amaral Basophils/100 WBC (Bld) 0.3 % Normal 0.2-2.0 [facility] Comment on above: Performed By: #### C BC #### [facility] [address] [place] [address] Dr. Narciso Amaral EO # 0.0 103/ul Normal 0.0-0.7 [facility] Comment on above: Performed By: #### C BC #### [facility] [address] [place] [address] Dr. Narciso Amaral Eosinophils/100 WBC (Bld) 0.4 % Critically low 0.9-7.0 [facility] Comment on above: Performed By: #### C BC #### [facility] [address] [place] [address] Dr. Narciso Amaral Erythrocyte distribution width (RBC) [Ratio] 12.7 % Normal 11.0-15.0 [facility] Comment on above: Performed By: #### C BC #### [facility] [address] [place] [address] Dr. Narciso Amaral Hematocrit (Bld) [Volume fraction] 38.0 % Normal 36.0-48.0 [facility] Comment on above: Performed By: #### C BC #### [facility] [address] [place] [address] Dr. Narciso Amaral Hemoglobin (Bld) [Mass/Vol] 12.5 g/dL Normal 12.0-16.0 [facility] Comment on above: Performed By: #### C BC #### [facility] [address] [place] [address] Dr. Narciso Amaral IG # 0.03 10e3/ul Normal 0.00-0.03 [facility] Comment on above: Performed By: #### C BC #### [facility] [address] [place] [address] Dr. Narciso Amaral IG % 0.4 % Normal 0.0-0.5 [facility] Comment on above: Performed By: #### C BC #### [facility] [address] [place] [address] Dr. Narciso Amaral LYMPH # 1.3 103/ul Normal 1.2-3.8 [facility] Comment on above: Performed By: #### C BC #### [facility] [address] [place] [address] Dr. Narciso Amaral Lymphocytes/100 WBC (Bld) 17.6 % Critically low 20.5-60.0 [facility] Comment on above: Performed By: #### C BC #### [facility] [address] [place] [address] Dr. Narciso Amaral MANUAL DIFF REQ NO Normal [facility] Comment on above: Performed By: #### C BC #### [facility] [address] [place] [address] Dr. Narciso Amaral MCH (RBC) [Entitic mass] 31.6 pg Normal 26.7-34.0 [facility] Comment on above: Performed By: #### C BC #### [facility] [address] [place] [address] Dr. Narciso Amaral MCHC (RBC) [Mass/Vol] 32.9 g/dL Normal 29.9-35.2 [facility] Comment on above: Performed By: #### C BC #### [facility] [address] [place] [address] Dr. Narciso Amaral MCV (RBC) [Entitic vol] 96.0 fL Normal 81.0-99.0 [facility] Comment on above: Performed By: #### C BC #### [facility] [address] [place] [address] Dr. Narciso Amaral MONO # 0.5 103/ul Normal 0.3-0.8 [facility] Comment on above: Performed By: #### C BC #### [facility] [address] [place] [address] Dr. Narciso Amaral Monocytes/100 WBC (Bld) 6.2 % Normal 1.7-12.0 [facility] Comment on above: Performed By: #### C BC #### [facility] [address] [place] [address] Dr. Narciso Amaral NEUT # 5.5 103/ul Normal 1.4-6.5 [facility] Comment on above: Performed By: #### C BC #### [facility] [address] [place] [address] Dr. Narciso Amaral Neutrophils/100 WBC (Bld) 75.1 % Critically high 43.0-75.0 [facility] Comment on above: Performed By: #### C BC #### [facility] [address] [place] [address] Dr. Narciso Amaral Platelet mean volume (Bld) [Entitic vol] 10.3 fL Normal 9.5-13.5 [facility] Comment on above: Performed By: #### C BC #### [facility] [address] [address] [address] Narciso Amaral PLT 159 103/ul Normal 150-450 [facility] Comment on above: Performed By: #### C BC #### [facility] [address] [place] [address] Dr. Narciso Amaral RBC 3.96 106/ul Critically low 4.20-5.40 [facility] Comment on above: Performed By: #### C BC #### [facility] [address] [place] [address] Dr. Narciso Amaral WBC 7.4 103/ul Normal 4.0-11.0 [facility] Comment on above: Performed By: #### C BC #### [facility] [address] [place] [address] Dr. Narciso Amaral Covid-19 PCR ([facility])on 12-25 SARS-CoV-2 (COVID-19) RNA MOHAN+probe Ql (Unsp spec) Not detected Normal NOT DETECTED [facility] Comment on above: Result Comment: When diagnostic [...] for this test is supported by the Compliance Mgr of Health and Human Service's declaration that [...] used). Performed By: #### C VDTBH #### [facility] [address] [place] [address] Dr. Narciso Amaral DRUG SCREEN RAPID (URINE)on 01-08-2022 AMP Negative Normal NEGATIVE [facility] Comment on above: Performed By: #### C T/NGNA #### [facility] [address] [place] [address] Dr. Narciso Amaral BAR Negative Normal NEGATIVE [facility] Comment on above: Performed By: #### C T/NGNA #### [facility] [address] [place] [address] Dr. Narciso Amaral BUP Negative Normal NEGATIVE [facility] Comment on above: Performed By: #### C T/NGNA #### [facility] [address] [place] [address] Dr. Narciso Amaral BZO Negative Normal NEGATIVE [facility] Comment on above: Performed By: #### C T/NGNA #### [facility] [address] [place] [address] Dr. Narciso Amaral TREY Negative Normal NEGATIVE [facility] Comment on above: Performed By: #### C T/NGNA #### [facility] [address] [place] [address] Dr. Narciso Amaral CUT-OFFS SEE BELOW Normal [facility] Comment on above: Result Comment: AMP (Amphetamine): 500ng/mL, BAR (Barbituates): 200 ng/mL, BZO (Benzodiazepines): 150 ng/mL, BUP (Buprenorphine): 10 ng/mL, TREY (Cocaine): 150 ng/mL, mAMP (Methamphetamine): 500 ng/mL, MTD (Methadone): 200 ng/mL, OPI (Opiates): 100 ng/mL, OXY (Oxycodone): 100 ng/mL, PCP (Phencyclidine): 25 ng/mL, PPX (Propoxyphene): 300 ng/mL, THC (Cannabinoids): 50 ng/mL, TCA (Trycyclic Antidepressants): 300 ng/mL Performed By: #### C T/NGNA #### [facility] [address] [place] [address] Dr. Narciso Amaral DRUG CUT HEADER DRUG CLASS TEST SYSTEM CUT-OFF CONCENTRATIONS ARE FOLLOWS: Normal [facility] Comment on above: Performed By: #### C T/NGNA #### [facility] [address] [place] [address] Dr. Narciso Amaral mAMP Negative Normal NEGATIVE [facility] Comment on above: Performed By: #### C T/NGNA #### [facility] [address] [address] [address] Narciso Amaral MTD Negative Normal NEGATIVE [facility] Comment on above: Performed By: #### C T/NGNA #### [facility] [address] [place] [address] Dr. Narciso Amaral OPI Negative Normal NEGATIVE [facility] Comment on above: Performed By: #### C T/NGNA #### [facility] [address] [address] [address] Narciso Amaral OXY Negative Normal NEGATIVE [facility] Comment on above: Performed By: #### C T/NGNA #### [facility] [address] [place] [address] Dr. Narciso Amaral PCP Negative Normal NEGATIVE [facility] Comment on above: Performed By: #### C T/NGNA #### [facility] [address] [address] [address] Narciso Amaral PPX Negative Normal NEGATIVE [facility] Comment on above: Performed By: #### C T/NGNA #### [facility] [address] [address] [address] Narciso Amaral TCA Negative Normal NEGATIVE [facility] Comment on above: Performed By: #### C T/NGNA #### [facility] [address] [place] [address] Dr. Narciso Amaral THC Negative Normal NEGATIVE [facility] Comment on above: Performed By: #### C T/NGNA #### [facility] [address] [place] [address] Dr. Narciso Amaral TYPE AND SCREENon 01-08-2022 TYPE AND SCREEN Negative Normal [facility] Comment on above: Performed By: #### C T/NGNA #### [facility] [address] [place] [address] Dr. Narciso Amaral US PREG BIOPHY W [...] KRISTINA ESTRADA Date: 2022-01-07 16:20 Normal [facility] US PREG BIOPHY W NON STRESSo n [...] KRISTINA ESTRADA Date: 2021-12-31 16:27 Normal [facility] VAGINITIS/VAGINOSIS DNA PROB Julius 12-26-2021 Fany species Negative Normal Negative [facility] Comment on above: Performed By: #### C BC #### [facility] [address] [address] [address] Narciso Amaral Gardnerella vaginalis Negative Normal Negative [facility] Comment on above: Performed By: #### C BC #### [facility] [address] [address] [address] Narciso Amaral Trichomonas vaginalis Negative Normal Negative [facility] Comment on above: Performed By: #### C BC #### [facility] [address] [address] [address] Narciso Amaral US PREG BIOPHY W [...] KRISTINA ESTRADA Date: 2021-12-25 09:13 Normal [facility] GROUP B STREP CULTUREon 11-26 S. agalactiae Ag Ql (Unsp spec) Culture Observations: NEGATIVE FOR GROUP B STREPTOCOCCUS. Normal [facility] Comment on above: Performed By: #### C Zoran/HAWA #### [facility] [address] [place] [address] Dr. Narciso Amaral US PREG GROWTHon 12-24-2021 US PREG GROWTH Ultrasound biophysical profile Ultrasound obstetrical, limited CLINICAL: Oligohydramnios follow-up. TECHNIQUE: Transabdominal obstetrical ultrasound was performed. Ultrasound biophysical profile was also performed by tap dancer. FINDINGS: 09/29/2021. FETUS AND PLACENTA: There is [...] gestational age according to Hadlock criteria. Remarks: Real Estate Agent reports that Dr. Watkins is aware of findings. Electronically authenticated by: AMPARO PATEL Date: 2021-12-24 12:27 [facility] Hematocrit (Bld) [Volume fraction] 35.7 % Low 36 - 46 % [facility] Hemoglobin (Bld) [Mass/Vol] 11.9 g/dL Low 12.0 - 16.0 g/dL [facility] Interpretation and review of laboratory results Abnormal [facility] MCH (RBC) [Entitic mass] 32.8 pg 26 - 34 pg [facility] MCHC (RBC) [Mass/Vol] 33.4 g/dL 31 - 37 g/dL [facility] MCV (RBC) [Entitic vol] 98.1 fL 80 - 100 fL [facility] Platelet distribution width (Bld) [Ratio] 12.1 % 12.1 - 15.2 % [facility] Platelets (Bld) [#/Vol] 178 10*3/uL [facility] RBC (Bld) [#/Vol] 3.64 10*6/uL Low 4.0 - 5.2 m/uL [facility] WBC (Bld) [#/Vol] 7.6 10*3/uL [facility] Glucose tolerance, 1 houron 10-28-2021 GLU ADMN Glucola [facility] Glucose tolerance screen 50g 134 mg/dL 70 - 135 mg/dL [facility] US PREG INCOMPLETE ANATOMYon 09-29-2021 US PREG [...] by: GREG RODNEY Date: 2021-09-29 08:50 Normal [facility] US PREG ANATOMY SINGLEon US PREG ANATOMY [...] KRISTINA ESTRADA Date: 2021-09-01 16:26 Normal [facility] AFP MATERNAL FOR SPINA BIFID Aon 08-25-2021 AFP MoM 0.71 Normal [facility] Comment on above: Performed By: #### C BC #### [facility] [address] [address] [address] Narciso Amaral AFP Value 45.2 ng/mL Normal [facility] Comment on above: Performed By: #### C BC #### [facility] [address] [address] [address] Narciso Amaral AFP, Serum for Spina Bifida Report Normal [facility] Comment on above: Performed By: #### C BC #### [facility] [address] [address] [address] Narciso Amaral Comment Comment Normal [facility] Comment on above: Result Comment: Ky Magallon, Ph.D., [facility] Director . References: Available Upon Request. . Multiples Of Median Cutoffs For AFP Elevations Bernstein 2.5 Black 2.8 IDD 2.0 Twins 4.5 Abbreviation Definitions IDD - Insulin Dep Diabetes OSBR - Open Spina Bifida Risk . For further inquiries contact [employer] at [phone]. Performed By: #### C BC #### [facility] [address] [address] [address] Narciso Echevarria Age Collection Date 19.0 weeks [facility] Comment on above: Performed By: #### C BC #### [facility] [address] [address] [address] Narciso Amaral Gestat, Age Based on LMP Normal [facility] Comment on above: Result Comment: Reca lculations are not recommended when gestational dating by LMP and ultrasound are within 10 days. Performed By: #### C BC #### [facility] [address] [address] [address] Narciso Amaral Insulin Dep Diabetes No Normal [facility] Comment on above: Performed By: #### C BC #### [facility] [address] [place] [address] Dr. Narciso Amaral Interpretation Comment Normal [facility] Comment on above: Result Comment: Inte [...] Customer Services to discuss available options. The [employer] recommends amniocentesis be offered to women age 35 and older. Performed By: #### C BC #### [facility] [address] [address] [address] Narciso Amaral [age] Normal [facility] Comment on above: Performed By: #### C BC #### [facility] [address] [address] [address] Narciso Amaral Multiple Gestation No Normal [facility] Comment on above: Performed By: #### C BC #### [facility] [address] [address] [address] Narciso Amaral OSBR Risk 1 [place] [id number] Normal [facility] Comment on above: Performed By: #### C BC #### [facility] [address] [address] [address] Narciso Amaral PDF . [facility] Comment on above: Performed By: #### C BC #### [facility] [address] [address] [address] Narciso Amaral Race [facility] Comment on above: Performed By: #### C BC #### [facility] [address] [address] [address] Narciso Amaral Test Results: Negative [facility] Comment on above: Performed By: #### C BC #### [facility] [address] [address] [address] Narciso Amaral PAP ACOG PANEL 2: 21 to 29on 08-23-2021 . . [facility] Comment on above: Performed By: #### C BC #### [facility] [address] [place] [address] Dr. Narciso Amaral Age Gdln ACOG Testing - [facility] Comment on above: Performed By: #### C BC #### [facility] [address] [place] [address] Dr. Narciso Amaral DIAGNOSIS: Comment [facility] Comment on above: Result Comment: NEGA TIVE FOR INTRAEPITHELIAL LESION OR MALIGNANCY. Performed By: #### C BC #### [facility] [address] [place] [address] Dr. Narciso Amaral Methodology: Comment [facility] Comment on above: Result Comment: This liquid based ThinPrep(R) pap test was screened with the use of an image guided system. Performed By: #### C BC #### [facility] [address] [place] [address] Dr. Narciso Amaral Note: Comment [facility] Comment on above: Result Comment: The Pap smear is a screening test designed to aid in the detection of premalignant and malignant conditions of the uterine cervix. It is not a diagnostic procedure and should not be used as the sole means of detecting cervical cancer. Both false-positive and false-negative reports do occur. . Performed By: #### C BC #### [facility] [address] [place] [address] Dr. Narciso Amaral Performed by: Comment Normal [facility] Comment on above: Result Comment: [employer]op [employer] Helper Machine (ASCP) Performed By: #### C BC #### [facility] [address] [place] [address] Dr. Narciso Amaral Reflex Criteria: Comment Normal [facility] Comment on above: Result Comment: The HPV DNA reflex criteria were not met with this specimen result therefore, no HPV testing was performed. . Performed By: #### C BC #### [facility] [address] [place] [address] Dr. Narciso Amaral Specimen adequacy: Comment Normal [facility] Comment on above: Result Comment: Sati sfactory for evaluation. No endocervical component is identified. Performed By: #### C BC #### [facility] [address] [place] [address] Dr. Narciso Amaral CHLAMYDIA/GONOCOCCUS MOHAN (SW AB/URINE/PAPon 08-21-2021 Chlamydia trachomatis, MOHAN Negative Normal Negative [facility] Comment on above: Performed By: #### C T/NGNA #### [facility] [address] [place] [address] Dr. Narciso Amaral Neisseria gonorrhoeae, MOHAN Negative Normal Negative [facility] Comment on above: Performed By: #### C T/NGNA #### [facility] [address] [place] [address] Dr. Narciso Amaral HEP B SURFACE ANTIGEN SCREEN on 07-04-2021 HBsAg Screen Negative Normal Negative [facility] Comment on above: Performed By: #### N BOX #### [facility] [address] [place] [address] Dr. Narciso Amaral HEPATITIS C VIRUS AB W/ REFL EX QUANTon 07-04-2021 HCV AB <0.1 Normal 0.0-0.9 [facility] Comment on above: Performed By: #### C BC #### [facility] [address] [place] [address] Dr. Narciso Amaral Interpretation: Comment Normal [facility] Comment on above: Result Comment: Nega tive Not infected with HCV, unless recent infection is suspected or other evidence exists to indicate HCV infection. Performed By: #### C BC #### [facility] [address] [place] [address] Dr. Narciso Amaral HIV 1 AND 2 WITH REFLEXon HIV Screen 4th Generation wRfx Non-Reactive Normal Non Reactive [facility] Comment on above: Result Comment: HIV Negative HIV-1/HIV-2 antibodies and HIV-1 p24 antigen were NOT detected. There is no laboratory evidence of HIV infection. Performed By: #### N BOX #### [facility] [address] [place] [address] Dr. Narciso Amaral RPR QUANTon 07-04-2021 Rapid Plasma Reagin, Quant Non-Reactive Normal NonRea<1:1 [facility] Comment on above: Performed By: #### C BC #### [facility] [address] [place] [address] Dr. Narciso Amaral RUBELLA AB IGGon 07-04-2021 Rubella Antibodies, IgG <0.90 Critically low Immune >0.99 [facility] Comment on above: Result Comment: Non- immune <0.90 Equivocal 0.90 - 0.99 Immune >0.99 Performed By: #### R UBIGG #### [facility] [address] [place] [address] Dr. Narciso Amaral CBC AUTO DIFFon 07-03-2021 BASO # 0.0 103/ul Normal 0.0-0.1 [facility] Comment on above: Performed By: #### C BC #### [facility] [address] [place] [address] Dr. Narciso Amaral Basophils/100 WBC (Bld) 0.4 % Normal 0.2-2.0 [facility] Comment on above: Performed By: #### C BC #### [facility] [address] [place] [address] Dr. Narciso Amaral EO # 0.0 103/ul Normal 0.0-0.7 [facility] Comment on above: Performed By: #### C BC #### [facility] [address] [place] [address] Dr. Narciso Amaral Eosinophils/100 WBC (Bld) 0.4 % Critically low 0.9-7.0 [facility] Comment on above: Performed By: #### C BC #### [facility] [address] [place] [address] Dr. Narciso Amaral Erythrocyte distribution width (RBC) [Ratio] 11.9 % Normal 11.0-15.0 [facility] Comment on above: Performed By: #### C BC #### [facility] [address] [place] [address] Dr. Narciso Amaral Hematocrit (Bld) [Volume fraction] 33.0 % Critically low 36.0-48.0 [facility] Comment on above: Performed By: #### C BC #### [facility] [address] [place] [address] Dr. Narciso Amaral Hemoglobin (Bld) [Mass/Vol] 11.3 g/dL Critically low 12.0-16.0 [facility] Comment on above: Performed By: #### C BC #### [facility] [address] [place] [address] Dr. Narciso Amaral IG # 0.01 10e3/ul Normal 0.00-0.03 [facility] Comment on above: Performed By: #### C BC #### [facility] [address] [place] [address] Dr. Narciso Amaral IG % 0.2 % Normal 0.0-0.5 [facility] Comment on above: Performed By: #### C BC #### [facility] [address] [place] [address] Dr. Narciso Amaral LYMPH # 1.9 103/ul Normal 1.2-3.8 [facility] Comment on above: Performed By: #### C BC #### [facility] [address] [place] [address] Dr. Narciso Amaral Lymphocytes/100 WBC (Bld) 35.9 % Normal 20.5-60.0 [facility] Comment on above: Performed By: #### C BC #### [facility] [address] [place] [address] Dr. Narciso Amaral MANUAL DIFF REQ NO Normal [facility] Comment on above: Performed By: #### C BC #### [facility] [address] [place] [address] Dr. Narciso Amaral MCH (RBC) [Entitic mass] 31.6 pg Normal 26.7-34.0 [facility] Comment on above: Performed By: #### C BC #### [facility] [address] [place] [address] Dr. Narciso Amaral MCHC (RBC) [Mass/Vol] 34.2 g/dL Normal 29.9-35.2 [facility] Comment on above: Performed By: #### C BC #### [facility] [address] [place] [address] Dr. Narciso Amaral MCV (RBC) [Entitic vol] 92.2 fL Normal 81.0-99.0 [facility] Comment on above: Performed By: #### C BC #### [facility] [address] [place] [address] Dr. Narciso Amaral MONO # 0.2 103/ul Critically low 0.3-0.8 [facility] Comment on above: Performed By: #### C BC #### [facility] [address] [place] [address] Dr. Narciso Amaral Monocytes/100 WBC (Bld) 4.2 % Normal 1.7-12.0 [facility] Comment on above: Performed By: #### C BC #### [facility] [address] [place] [address] Dr. Narciso Amaral NEUT # 3.1 103/ul Normal 1.4-6.5 [facility] Comment on above: Performed By: #### C BC #### [facility] [address] [place] [address] Dr. Narciso Amaral Neutrophils/100 WBC (Bld) 58.9 % Normal 43.0-75.0 [facility] Comment on above: Performed By: #### C BC #### [facility] [address] [place], [place] [id number] Dr. Narciso Amaral Platelet mean volume (Bld) [Entitic vol] 10.4 fL Normal 9.5-13.5 [facility] Comment on above: Performed By: #### C BC #### [facility] [address] [place] [address] Dr. Narciso Amaral PLT 158 103/ul Normal 150-450 [facility] Comment on above: Performed By: #### C BC #### [facility] [address] [address] [address] Narciso Amaral RBC 3.58 106/ul Critically low 4.20-5.40 [facility] Comment on above: Performed By: #### C BC #### [facility] [address] [place] [address] Dr. Narciso Amaral WBC 5.2 103/ul Normal 4.0-11.0 [facility] Comment on above: Performed By: #### C BC #### [facility] [address] [place] [address] Dr. Narciso Amaral CULTURE URINEon 07-03-2021 CULTURE URINE Culture Observations: No growth Normal [facility] Comment on above: Performed By: #### U RCX #### [facility] [address] [place] [address] Dr. Narciso Amaral GLYCOHEMOGLOBIN A1Con 2021 ADA RECOMMENDATION ADA THERAPEUTIC TARGET 6.0 - 7.0 ACTION SUGGESTED > 7.0 Normal [facility] Comment on above: Performed By: #### N BOX #### [facility] [address] [place] [address] Dr. Narciso Amaral Glucose [Mass/Vol] 88 mg/dL Normal [facility] Comment on above: Performed By: #### N BOX #### [facility] [address] [place] [address] Dr. Narciso Amaral HbA1c (Bld) [Mass fraction] 4.7 % Normal <=6.0 [facility] Comment on above: Performed By: #### N BOX #### [facility] [address] [place] [address] Dr. Narciso Amaral BERNADINE BOX TEST PT SEND OUTo n 07-03-2021 SENT TO REF LAB 07/03/2021 Normal [facility] Comment on above: Performed By: #### N BOX #### [facility] [address] [place] [address] Dr. Narciso Amaral TYPE AND SCREENon 07-03-2021 TYPE AND SCREEN Negative Normal [facility] Comment on above: Performed By: #### C T/NGNA #### [facility] [address] [place] [address] Dr. Narciso Amaral CBC AUTO DIFFon 06-17-2021 BASO # 0.0 103/ul Normal 0.0-0.1 [facility] Comment on above: Performed By: #### N BOX #### [facility] [address] [place] [address] Dr. Narciso Amaral Basophils/100 WBC (Bld) 0.4 % Normal 0.2-2.0 [facility] Comment on above: Performed By: #### N BOX #### [facility] [address] [place] [address] Dr. Narciso Amaral EO # 0.0 103/ul Normal 0.0-0.7 [facility] Comment on above: Performed By: #### N BOX #### [facility] [address] [place] [address] Dr. Narciso Amaral Eosinophils/100 WBC (Bld) 0.0 % Critically low 0.9-7.0 [facility] Comment on above: Performed By: #### N BOX #### [facility] [address] [place] [address] Dr. Nraciso Amaral Erythrocyte distribution width (RBC) [Ratio] 11.6 % Normal 11.0-15.0 [facility] Comment on above: Performed By: #### N BOX #### [facility] [address] [place] [address] Dr. Narciso Amaral Hematocrit (Bld) [Volume fraction] 42.6 % Normal 36.0-48.0 [facility] Comment on above: Performed By: #### N BOX #### [facility] [address] [place] [address] Dr. Narciso Amaral Hemoglobin (Bld) [Mass/Vol] 14.9 g/dL Normal 12.0-16.0 [facility] Comment on above: Performed By: #### N BOX #### [facility] [address] [place] [address] Dr. Narciso Amaral IG # 0.02 10e3/ul Normal 0.00-0.03 [facility] Comment on above: Performed By: #### N BOX #### [facility] [address] [place] [address] Dr. Narciso Amaral IG % 0.3 % Normal 0.0-0.5 [facility] Comment on above: Performed By: #### N BOX #### [facility] [address] [place] [address] Dr. Narciso Amaral LYMPH # 2.1 103/ul Normal 1.2-3.8 [facility] Comment on above: Performed By: #### N BOX #### [facility] [address] [place] [address] Dr. Narciso Amaral Lymphocytes/100 WBC (Bld) 28.8 % Normal 20.5-60.0 [facility] Comment on above: Performed By: #### N BOX #### [facility] [address] [place] [address] Dr. Narciso Amaral MANUAL DIFF REQ NO Normal [facility] Comment on above: Performed By: #### N BOX #### [facility] [address] [place] [address] Dr. Narciso Amaral MCH (RBC) [Entitic mass] 31.6 pg Normal 26.7-34.0 [facility] Comment on above: Performed By: #### N BOX #### [facility] [address] [place] [address] Dr. Narciso Amaral MCHC (RBC) [Mass/Vol] 35.0 g/dL Normal 29.9-35.2 [facility] Comment on above: Performed By: #### N BOX #### [facility] [address] [place] [address] Dr. Narciso Amaral MCV (RBC) [Entitic vol] 90.4 fL Normal 81.0-99.0 [facility] Comment on above: Performed By: #### N BOX #### [facility] [address] [place] [address] Dr. Narciso Amaral MONO # 0.3 103/ul Normal 0.3-0.8 [facility] Comment on above: Performed By: #### N BOX #### [facility] [address] [place] [address] Dr. Narciso Amaral Monocytes/100 WBC (Bld) 4.6 % Normal 1.7-12.0 [facility] Comment on above: Performed By: #### N BOX #### [facility] [address] [place] [address] Dr. Narciso Amaral NEUT # 4.7 103/ul Normal 1.4-6.5 [facility] Comment on above: Performed By: #### N BOX #### [facility] [address] [place] [address] Dr. Narciso Amaral Neutrophils/100 WBC (Bld) 65.9 % Normal 43.0-75.0 [facility] Comment on above: Performed By: #### N BOX #### [facility] [address] [place] [address] Dr. Narciso Amaral Platelet mean volume (Bld) [Entitic vol] 9.7 fL Normal 9.5-13.5 [facility] Comment on above: Performed By: #### N BOX #### [facility] [address] [place] [address] Dr. Narciso Amaral PLT 199 103/ul Normal 150-450 [facility] Comment on above: Performed By: #### N BOX #### [facility] [address] [place] [address] Dr. Narciso Amaral RBC 4.71 106/ul Normal 4.20-5.40 [facility] Comment on above: Performed By: #### N BOX #### [facility] [address] [place] [address] Dr. Narciso Amaral WBC 7.1 103/ul Normal 4.0-11.0 [facility] Comment on above: Performed By: #### N BOX #### [facility] [address] [place] [address] Dr. Narciso WILL URINE PROFILEon 2 Bilirubin Ql (U) Negative Normal NEGATIVE [facility] Comment on above: Performed By: #### E RUR #### [facility] [address] [place] [address] Dr. Narciso Amaral Clarity (U) SL CLOUDY Abnormal CLEAR [facility] Comment on above: Performed By: #### E RUR #### [facility] [address] [place] [address] Dr. Narciso Amaral Color (U) YELLOW Normal YELLOW [facility] Comment on above: Performed By: #### E RUR #### [facility] [address] [place] [address] Dr. Narciso MCCLELLAN A micrscopic examination will be performed if indicated. Normal [facility] Comment on above: Performed By: #### E RUR #### [facility] [address] [place] [address] Dr. Narciso mAaral Glucose Ql (U) Negative Normal NEGATIVE [facility] Comment on above: Performed By: #### E RUR #### [facility] [address] [place] [address] Dr. Narciso Amaral Hemoglobin Ql (U) Negative Normal NEGATIVE [facility] Comment on above: Performed By: #### E RUR #### [facility] [address] [place] [address] Dr. Narciso Amaral Ketones Ql (U) >=80 Abnormal NEGATIVE [facility] Comment on above: Performed By: #### E RUR #### [facility] [address] [place] [address] Dr. Narciso Amaral LEUKOCYTES Negative Normal NEGATIVE [facility] Comment on above: Performed By: #### E RUR #### [facility] [address] [place] [address] Dr. Narciso Amaral Nitrite Ql (U) Negative Normal NEGATIVE [facility] Comment on above: Performed By: #### E RUR #### [facility] [address] [place] [address] Dr. Narciso Amaral pH (U) 6.0 [pH] Normal 5-9 [facility] Comment on above: Performed By: #### E RUR #### [facility] [address] [place] [address] Dr. Narciso Amaral SPEC GRAVITY >=1.030 Abnormal 1.005-<=1.025 [facility] Comment on above: Performed By: #### E RUR #### [facility] [address] [place] [address] Dr. Narciso Amaral UA PROTEIN TRACE Normal NEGATIVE/ TRACE [facility] Comment on above: Performed By: #### E RUR #### [facility] [address] [place] [address] Dr. Narciso Amaral UR MICRO IND NOT INDICATED Normal [facility] Comment on above: Performed By: #### E RUR #### [facility] [address] [place] [address] Dr. Narciso Amarla Urobilinogen Qn (U) 1.0 {Maggy'U}/dL Normal 0.2 - 1. 0 [facility] Comment on above: Performed By: #### E RUR #### [facility] [address] [place] [address] Dr. Narciso Amaral PROF 14(COMP METB)on 022 Albumin [Mass/Vol] 4.6 g/dL Normal 3.5-5.0 [facility] Comment on above: Performed By: #### C BC #### [facility] [address] [place] [address] Dr. Narciso Amaral Albumin/Globulin [Mass ratio] 1.0 {ratio} Normal [facility] Comment on above: Performed By: #### C BC #### [facility] [address] [place] [address] Dr. Narciso Amaral ALP [Catalytic activity/Vol] 54 U/L Normal 38-126 [facility] Comment on above: Performed By: #### C BC #### [facility] [address] [address] [address] Narciso Amaral ALT [Catalytic activity/Vol] 12 U/L Normal 9-52 [facility] Comment on above: Performed By: #### C BC #### [facility] [address] [place] [address] Dr. Narciso Amaral Anion gap [Moles/Vol] 14.8 mmol/L Normal Th [facility] Comment on above: Performed By: #### C BC #### [facility] [address] [place] [address] Dr. Narciso Amaral AST [Catalytic activity/Vol] 11 U/L Critically low 14-36 [facility] Comment on above: Performed By: #### C BC #### [facility] [address] [place] [address] Dr. Narciso Amaral Bilirubin [Mass/Vol] 0.9 mg/dL Normal 0.2-1.3 [facility] Comment on above: Performed By: #### C BC #### [facility] [address] [place] [address] Dr. Narciso Amaral Calcium [Mass/Vol] 9.6 mg/dL Normal 8.4-10.2 [facility] Comment on above: Performed By: #### C BC #### [facility] [address] [place] [address] Dr. Narciso Amaral Chloride [Moles/Vol] 98 mmol/L Normal 98-107 [facility] Comment on above: Performed By: #### C BC #### [facility] [address] [place] [address] Dr. Narciso Amaral CO2 [Moles/Vol] 27.3 mmol/L Normal 22.0-30.0 [facility] Comment on above: Performed By: #### C BC #### [facility] [address] [place] [address] Dr. Narciso Amaral Creatinine [Mass/Vol] 0.55 mg/dL Normal 0.52-1.04 [facility] Comment on above: Performed By: #### C BC #### [facility] [address] [place] [address] Dr. Narciso Amaral EGFR-AF JORDANIAN >60 Normal >=60 [facility] Comment on above: Performed By: #### C BC #### [facility] [address] [place] [address] Dr. Narciso Amaral EGFR-NON AF JORDANIAN >60 Normal >=60 [facility] Comment on above: Performed By: #### C BC #### [facility] [address] [address] [address] Narciso Amaral Globulin (S) [Mass/Vol] 4.7 g/dL Normal [facility] Comment on above: Performed By: #### C BC #### [facility] [address] [address] [address] Narciso Amaral Glucose [Mass/Vol] 87 mg/dL Normal 74-106 [facility] Comment on above: Performed By: #### C BC #### [facility] [address] [place] [address] Dr. Narciso Amaral Potassium [Moles/Vol] 3.1 mmol/L Critically low 3.4-5.0 [facility] Comment on above: Performed By: #### C BC #### [facility] [address] [place] [address] Dr. Narciso Amaral Protein [Mass/Vol] 9.3 g/dL Critically high 6.1-8.2 T [facility] Comment on above: Performed By: #### C BC #### [facility] [address] [place] [address] Dr. Narciso Amaral Sodium [Moles/Vol] 137 mmol/L Normal 137-145 [facility] Comment on above: Performed By: #### C BC #### [facility] [address] [address] [address] Narciso Amaral Urea nitrogen [Mass/Vol] 11.0 mg/dL Normal 7.0-17.0 [facility] Comment on above: Performed By: #### C BC #### [facility] [address] [place] [address] Dr. Narciso Amaral Urea nitrogen/Creatinine [Mass ratio] 20.0 mg/mg Normal [facility] Comment on above: Performed By: #### C BC #### [facility] [address] [address] [address] Narciso Amaral US PREG TVon 06-17-2021 [...] by: KRISTINA ESTRADA Date: 2021-06-17 17:29 Normal [facility] Vital Signs Date Time Vital Sign Value Performing Clinician Facility 05-31-2023 08:51-0500 Body mass index (BMI) [Ratio] 22.85 kg/m2 Lydia DOLAN Work Phone: [facility] 05-31-2023 08:51-0500 Body weight 60.38 kg Lydia DOLAN Work Phone: [facility] 05-31-2023 08:51-0500 Diastolic blood pressure 66 mm[Hg] Lydia DOLAN Work Phone: [facility] 05-31-2023 08:51-0500 Systolic blood pressure 102 mm[Hg] Lydia DOLAN Work Phone: [facility] 01-03-2023 20:48-0400 Diastolic blood pressure 66 mm[Hg] Kemal Sharma [facility] 01-03-2023 20:48-0400 Heart rate 68 /min Kemal Sharma [facility] 01-03-2023 20:48-0400 Respiratory rate 18 /min Kemal Sharma [facility] 01-03-2023 20:48-0400 SaO2% (BldA) [Mass fraction] 99 % Kemal Zachary [facility] 01-03-2023 20:48-0400 Systolic blood pressure 110 mm[Hg] Kemal Zachary [facility] 01-03-2023 19:55-0400 Hourly Rounding Kemal Zachary [facility] 01-03-2023 19:53-0400 Diastolic blood pressure 71 mm[Hg] Kemal Zachary [facility] 01-03-2023 19:53-0400 Heart rate 70 /min Kemal Zachary [facility] 01-03-2023 19:53-0400 Respiratory rate 18 /min Kemal Zachary [facility] 01-03-2023 19:53-0400 SaO2% (BldA) [Mass fraction] 99 % Kemal Zachary [facility] 01-03-2023 19:53-0400 Systolic blood pressure 106 mm[Hg] Kemal Zachary [facility] 01-03-2023 18:55-0400 Diastolic blood pressure 74 mm[Hg] Kemal Zachary [facility] 01-03-2023 18:55-0400 Heart rate 74 /min Kemal Zachary [facility] 01-03-2023 18:55-0400 Hourly Rounding Kemal Zachary [facility] 01-03-2023 18:55-0400 Respiratory rate 16 /min Kemal Zachary [facility] 01-03-2023 18:55-0400 SaO2% (BldA) [Mass fraction] 99 % Kemal Zachary [facility] 01-03-2023 18:55-0400 Systolic blood pressure 108 mm[Hg] Kemal Zachary [facility] 01-03-2023 17:55-0400 Hourly Rounding Kemal Sharma [facility] 01-03-2023 17:55-0400 Promise to Return Kemal Zachary [facility] 01-03-2023 16:55-0400 Body temperature 98.06 [degF] Kemal Sharma [facility] 08-25-2021 20:06-0400 Body weight 51.[address] TONI WATKINS [facility] Comment on above: Performed By: #### CBC #### [facility] [address] [place] [address] Dr. Narciso Amaral Encounters Encounter Date Encounter Type Care Provider Facility Start: 05-31-2023 End: 05-31-2023 ambulatory LYDIA GALLO Not Available Start: 05-31-2023 End: 05-31-2023 flow sheet Lydia DOLAN Work Phone: [facility] Comment on above: Third trimester preg jordana Start: 05-06-2023 End: 05-06-2023 ambulatory TONI TRES Not Available Start: 04-28-2023 End: 04-29-2023 ambulatory LYDIA GALLO [facility] Start: 04-28-2023 End: 04-28-2023 Subsequent hospital visit by physician [facility] Start: 04-12-2023 End: 04-12-2023 ambulatory LYDIA GALLO Not Available Start: 03-08-2023 End: 03-08-2023 ambulatory TONI TRES Not Available Start: 01-03-2023 End: 01-03-2023 Emergency department patient visit Kemal Sharma [place] Start: 01-03-2023 End: 01-03-2023 Emergency department patient visit Kemal Sharma [facility] Start: 01-21-[address] TONI WATKINS Facility [...] Blake Higginbotham Work Phone: prosthesis Left eye eKmal Daugherty Plan of Treatment Date Care Activity Detail Author Start: 06-17-2023 End: 06-17-2023 Patient encounter procedure 06/17/2023 10:10 AM EST Routine [facility] [address] [place] [address] Toni Watkins, [address] [place] [address] [facility] Start: 05-31-2023 End: 05-31-2023 Patient encounter procedure 05/31/2023 12:30 PM EST Routine [facility] [address] [address] [facility] Start: 05-04-2023 End: 05-04-2023 Patient encounter procedure 05/04/2023 1:30 PM EST Routine [facility] [address] [facility] [address] [place] [address] [facility] Start: 11-24-2022 Influenza vaccination Flu vaccine (# 1) [facility] Start: 12-25-2021 Influenza vaccination Flu vaccine (# 1) [facility] Start: 2017 Screening for malign ant neoplasm of cervix Pap smear [facility] Start: 08-01-2015 DTaP/Tdap/Td vaccine (1 - Tdap) DTaP/Tdap/Td vaccine (1 - Tdap) [facility] Start: 2014 Hepatitis C screening Hepatitis C sc reen [facility] Start: 08-01-2011 HIV screening HIV screen [facility] Start: 2008 Depression Screen Depression Screen [facility] Start: 08-01-2007 HPV vaccine (1 - 2-d ose series) HPV vaccine (1 - 2-dose series) [facility] Start: 2001 COVID-19 Vaccine (1) COVID-19 Vaccin e (1) [facility] Start: 1997 Varicella vaccine (1 of 2 - 2-dose childhood series) Varicella vaccine (1 of 2 - 2-dose childhood series) [facility] Start: 01-30-1997 COVID-19 Vaccine (#1) COVID-19 Vacci ne (#1) [facility] Start: 1996 Hepatitis B vaccine (1 of 3 - 3-dose series) Hepatitis B vaccine (1 of 3 - 3-dose series) [facility] Payers Date Payer Category Payer Unknown 1996 Unknown [id number] 2.16.84 [id number] 1996 Unknown [id number] 2.16.84 [id number] 1996 Unknown [id number] 2.16.84 0.1.611184.3.579.2.593 1996 Unknown [id number] 2.16.84 0.1.192606.3.579.2.593 1996 Unknown [id number] 2.16.84 0.1.228174.3.579.2.593 1996 Unknown [id number] 2.16.84 0.1.165433.3.579.2.593 1996 Unknown [id number] 2.16.84 0.1.881718.3.579.2.593 1996 Unknown [id number] 2.16.84 0.1.858249.3.579.2.593 1996 Unknown [id number] 2.16.84 0.1.153976.3.579.2.593 1996 Unknown [id number] 2.16.84 0.1.408616.3.579.2.593 1996 Unknown [id number] 2.16.84 0.1.731216.3.579.2.593 1996 Unknown [id number] 2.16.84 0.1.466000.3.579.2.593 1996 Unknown [id number] 2.16.84 0.1.171535.3.579.2.593 1996 Unknown [id number] 2.16.84 0.1.594231.3.579.2.593 1996 Unknown [id number] 2.16.84 0.1.884845.3.579.2.593 1996 Unknown [id number] 2.16.84 0.1.761378.3.579.2.593 1996 Unknown [id number] 2.16.84 0.1.588521.3.579.2.593 1996 Unknown [id number] 2.16.8 40.1.307924.3.579.2.727 1996 Unknown [id number] 2.16.8 40.1.484262.3.579.2.174 1996 Unknown [id number] 2.16.84 0.1.114738.3.579.2.1259 1996 Unknown [id number] 2.16.84 0.1.020607.3.579.2.1259 1996 Unknown [id number] 2.16.840 .1.070862.3.579.2.1259 1996 Unknown [id number] 2.16.840. 1.630795.3.579.2.1259 1959 Self-pay [id number] 1959 Self-pay 1959 Unknown [id number] [id number] Unknown [id number] 2.16.84 0.1.249030.3.579.2.593 Social History Date Type Detail Facility Tobacco smoking status NHIS Tobacco smoking consumption unknown [employer] Work Phone: Start: 1995 Sex Assigned At Not on file [employer] Work Phone: Start: 04-05-2021 End: 04-07-2023 Tobacco smoking status Never smoked tobacco (finding) [facility] Tobacco smoking status Never [facility] Start: 04-20-2023 Sex Assigned At Female [facility] Start: 04-07-2023 Tobacco use and exposure Smokeless tobacco non-user [employer] Start: 04-20-2023 Alcohol intake Lifetime non-d jay (finding) [employer] Start: 04-20-2023 History of Social function [employer] Start: 11-12-2022 [facility] [employer] NEGATED: Highlighted rowStart: NINF History of tobacco use Passive smoker [employer] Functional Status Date Assessment Result Facility 01-03-2023 Functional Status N/A [facility] History of Present illness Narrative 05-31-2023 MAGDALENO [...] and states received a steroid while in [place] for shortened cervix. Pt to have nst [...] of: MAGDALENO Garsia documented in this encounter [facility] Hospital Discharge instructions 01-03-2023 Note Date & Type Note Facility 01-03-2023 Hospital Discharg e instructions Patient Education 01/03/2023 20:50:05 Morning Sickness, Sklc-vc-Ogia Morning Sickness Morning sickness is when you [...] Follow these instructions at home: Medicines Take gzke-ztn-ubvmonv and prescription medicines only as told by [...] provider. Document Revised: 11/25/2020 Document Reviewed: 11/04/2020 [employer] Patient Education 2022 [employer]. Follow Up Care 01/03/2023 16:18:17 With:Toni WATKINS Address: [address] , [place] [address]- Business (1) When:01/06/2023 20:40:46 [facility] Evaluation + Plan note 01-03-2023 Note Date [...] discharged home with instructions to follow with [facility] and is to return to the ED with any new or worsening symptoms. Patient voices understanding is agreeable to plan [facility] Evaluation note Note Date & Type Note Facility Evaluation note Diagnosis Third trimester state, incidental documented in this encounter [facility] Hospital course Narrative Note Date & Type Note Facility Hospital course Narrative No data available for this section [facility] Progress note Note Date & Type Note Facility Progress note No data available for this section [facility] Summary Purpose Family History No Family History Records FoundNo Family History Records FoundNo Family History Records FoundNo Family History Records Found Advance Directives No Advanced Directives Records FoundNo Advanced Directives Records FoundNo Advanced Directives Records FoundNo Advanced Directives Records Found Additional Source Comments INFORMATION SOURCE (unrecogn ized section and content) DATE CREATED AUTHOR 01/21/2022 [facility] DATE CREATED AUTHOR AUTHOR'S ORGANIZ ATION 01/07/2023 [facility] DATE CREATED AUTHOR AUTHOR'S ORGANIZ ATION 04/29/2023 Nancy Rodriguez [facility] DATE CREATED AUTHOR AUTHOR'S ORGANIZ ATION 05/31/2023 [facility] EPIC Patient Care team informatio n (unrecognized section and content) Personnel Name: Gloria CASTELLANOS CNP Address: Address: [address] [place] [address] Dr. Blake, [facility] Reason for Visit (unrecogniz ed section and [...] BE BASED ON THE PRIMARY CLINICAL RECORDS. [facility] [employer] [facility]. provides no warranty or guarantee of the accuracy or completeness of information in this document.
--- NOTE | 2023-06-14 09:58 | US_ITS ---
[address] [address] Patient Name: DOMINIK FRANCO MRN: [id number] date: 1995 Sex: F Assigned Patient Location: [facility] Current Patient Location: [facility] Accession/Order Number: [id number] Exam Date: 06/14/2023 10:00 Report Date: 06/14/2023 11:31 At the request of: TONI JOSHUA Procedure: US OB BPP w non-stress EXAMINATION: US OB BPP w non-stress, US OB cervical length HISTORY: Antepartum placenta circumvallate COMPARISON: Ultrasound OB biophysical 05/31/2023 TECHNIQUE: Ultrasound biophysical profile was performed in the radiology department. BREATHING MOVEMENTS: 2.0 GROSS BODY MOVEMENTS: 2.0 TONE: 2.0 QUALITATIVE AMNIOTIC FLUID VOLUME: 2.0 PRESENTATION: CEPHALIC HEART RATE: 162.7 bpm bpm. AMNIOTIC FLUID VOLUME: 15.5 cm GESTATIONAL AGE: 32 weeks 4 days CONCLUSION: 1. Total biophysical profile score 8.0. 2. Closed, but short cervix 2.1 cm in length (3.0 cm on the 05/31/2023 study). Electronically authenticated by: KRISTINA ESTRADA Date: 06/14/2023 11:31
--- NOTE | 2023-06-14 09:58 | US_ITS ---
[address] [address] Patient Name: DOMINIK FRANCO MRN: [id number] date: 1995 Sex: F Assigned Patient Location: [facility] Current Patient Location: [facility] Accession/Order Number: [id number] Exam Date: 06/14/2023 10:00 Report Date: 06/14/2023 11:31 At the request of: TONI JOSHUA Procedure: US OB cervical length EXAMINATION: US OB BPP w non-stress, US OB cervical length HISTORY: Antepartum placenta circumvallate COMPARISON: Ultrasound OB biophysical 05/31/2023 TECHNIQUE: Ultrasound biophysical profile was performed in the radiology department. BREATHING MOVEMENTS: 2.0 GROSS BODY MOVEMENTS: 2.0 TONE: 2.0 QUALITATIVE AMNIOTIC FLUID VOLUME: 2.0 PRESENTATION: CEPHALIC HEART RATE: 162.7 bpm bpm. AMNIOTIC FLUID VOLUME: 15.5 cm GESTATIONAL AGE: 32 weeks 4 days CONCLUSION: 1. Total biophysical profile score 8.0. 2. Closed, but short cervix 2.1 cm in length (3.0 cm on the 05/31/2023 study). Electronically authenticated by: KRISTINA ESTRADA Date: 06/14/2023 11:31
[2023-06-14 10:33] VITALS: BP 109/70; PULSE 80
--- OUTSIDE RECORDS SUMMARY | 2023-06-17 07:25 | XMS_ITS | CCD ---
Author Name Unknown Address [address] [place] [address] Organization [facility] Care Team Providers Care Feed Crusher Operator Name Role Phone Unavailable Primary Care [...] DR KRISTINA Kelly Consulting Unavailable MISC, DR ORDRÍGUEZ Primary Care Unavailable TRES, DR MUÑOZ Admitting [...] Admitting Unavailable TRES, DR MUÑOZ Admitting Unavailable TERS, DR MUÑOZ Attending Unavailable REQUEST, NONE LISTED [...] Unavailable TRES, DR MUÑOZ Consulting Unavailable ELINOR, ALXI FERRER Consulting Unava ilable TRES, DR MUÑOZ [...] Amoxicillin; Translations: [amoxicillin] Drug Allergy 2 [facility] (3 sources) Amoxicillin; Translations: [amoxicillin] Drug Allergy 3 rash [facility] [place] (1 source) Penicillins Propensity to adverse reactions to drug 3 Rash [facility] (2 sources) Penicillins Drug Allergy [...] hours., # 16 tab(s), Refills(s) 1, Pharmacy: [id number], 168, cm, 04/09/20 15:23:00 EST, Height/Length Dosing, 50.7, kg, 04/09/20 15:23:00 EST, Weight Dosing Start Date: 04/09/20 Status: Ordered Zofran ODT 4 mg Tab-Dis (1 source) Start: 06-09-2021 take 1 tablet by mouth every six hours as needed for nausea Zofran ODT 4 mg Tab-Dis 4 mg = 1 tab(s), Oral, q6hr, PRN Nausea/Vomiting, # 12 tab(s), Refills(s) 0, Pharmacy: [facility], 165.1, cm, 06/09/21 2:43:00 EST, Height/Length Dosing, [...] applicable or unspecified; Translations: [MAT CARE OTH NE FTL GRTH 3RD TM UNS] Onset: 12-31-2021 [...] Differentialon 04-28-2023 Basophils (Bld) [#/Vol] 0.03 10*3/uL [facility] Basophils/100 WBC (Bld) 1 % 0 - 2 % [facility] Eosinophils (Bld) [#/Vol] 0.04 10*3/uL [facility] Eosinophils/100 WBC (Bld) 1 % 0 - 5 % [facility] Erythrocyte distribution width (RBC) [Ratio] 11.8 % Low 12.1 - 15.2 % [facility] Hematocrit (Bld) [Volume fraction] 35.4 % Low 36.0 - 46.0 % [facility] Hemoglobin (Bld) [Mass/Vol] 11.9 g/dL Low 12.0 - 16.0 g/dL [facility] Immature granulocytes (Bld) [#/Vol] 0.04 10*3/uL [facility] Immature granulocytes/100 WBC (Bld) 1 % 0 - 5 % [facility] Interpretation and review of laboratory results Abnormal [facility] Lymphocytes/100 WBC (Bld) 24 % 15 - 40 % [facility] Lymphocytes/100 WBC (Bld) 1.53 % [facility] MCH (RBC) [Entitic mass] 32.9 pg 26.0 - 34.0 pg [facility] MCHC (RBC) [Mass/Vol] 33.6 g/dL 31.0 - 37.0 g/dL [facility] MCV (RBC) [Entitic vol] 97.8 fL 80.0 - 100.0 fL [facility] Monocytes/100 WBC (Bld) 6 % 4 - 8 % [facility] Monocytes/100 WBC (Bld) 0.41 % [facility] Neutrophils/100 WBC (Bld) 67 % 47 - 75 % [facility] Platelet mean volume (Bld) [Entitic vol] 9.5 fL 6.0 - 12.0 fL [facility] Platelets (Bld) [#/Vol] 155 10*3/uL [facility] RBC (Bld) [#/Vol] 3.62 10*6/uL Low 4.00 - 5.2 0 m/uL [facility] Segmented neutrophils/100 WBC (Bld) 4.37 % [facility] WBC other (Bld) [#/Vol] 6.4 [facility] CBC with Diffon 04-28-2023 Abs. Basophil 0.03 k/uL Normal 0.00-0.20 [facility] Comment on above: Performed By: #### C DP, GLUSC #### [facility] [address] [place] [address] Ell Tutor: Greg Castillo MD Abs.Imm.Granulocyte 0.04 k/uL Normal 0.00-0.30 [facility] Comment on above: Performed By: #### C DP, GLUSC #### [facility] [address] [place] [address] Ell Tutor: Greg Castillo MD Abs.Neutrophil (Seg) 4.37 k/uL Normal 2.5-7.0 [facility] Comment on above: Performed By: #### C DP, GLUSC #### [facility] [address] [place] [address] Ell Tutor: Greg Castillo MD Basophils/100 WBC (Bld) 1 % Normal 0-2 [facility] Comment on above: Performed By: #### C DP, GLUSC #### [facility] [address] [place] [address] Ell Tutor: Greg Castillo MD Eosinophils (Bld) [#/Vol] 0.04 10*3/uL Normal 0.00-0.40 [facility] Comment on above: Performed By: #### C DP, GLUSC #### [facility] [address] [place] [id number] Ell Tutor: Greg Castillo MD Eosinophils/100 WBC (Bld) 1 % Normal 0-5 [facility] Comment on above: Performed By: #### C DP, GLUSC #### [facility] [address] [place] [address] Ell Tutor: Greg Castillo MD Erythrocyte distribution width (RBC) [Ratio] 11.8 % Low 12.1-15.2 [facility] Comment on above: Performed By: #### C DP, GLUSC #### [facility] [address] [place] [id number] Ell Tutor: Greg Castillo MD Hematocrit (Bld) [Volume fraction] 35.4 % Low 36.0-46.0 [facility] Comment on above: Performed By: #### C DP, GLUSC #### [facility] [address] [place] [address] Ell Tutor: Greg Castillo MD Hemoglobin (Bld) [Mass/Vol] 11.9 g/dL Low 12.0-16.0 [facility] Comment on above: Performed By: #### C DP, GLUSC #### [facility] [address] [place] [id number] Ell Tutor: Greg Castillo MD Immature granulocytes/100 WBC (Bld) 1 % Normal 0-5 [facility] Comment on above: Performed By: #### C DP, GLUSC #### [facility] [address] [place] [phone] Ell Tutor: Greg Castillo MD Lymphocytes (Bld) [#/Vol] 1.53 10*3/uL Normal 1.00-4.80 [facility] Comment on above: Performed By: #### C DP, GLUSC #### [facility] [address] [place] [address] Ell Tutor: Greg Castillo MD Lymphocytes/100 WBC (Bld) 24 % Normal 15-40 [facility] Comment on above: Performed By: #### C DP, GLUSC #### [facility] [address] [place] [phone] Ell Tutor: Greg Castillo MD MCH (RBC) [Entitic mass] 32.9 pg Normal 26.0-34.0 [facility] Comment on above: Performed By: #### C DP, GLUSC #### [facility] [address] [place] [address] Ell Tutor: Greg Castillo MD MCHC (RBC) [Mass/Vol] 33.6 g/dL Normal 31.0-37.0 [facility] Comment on above: Performed By: #### C DP, GLUSC #### [facility] [address] [place] [phone] Ell Tutor: Greg Castillo MD MCV (RBC) [Entitic vol] 97.8 fL Normal 80.0-100.0 [facility] Comment on above: Performed By: #### C DP, GLUSC #### [facility] [address] [place] [phone] Ell Tutor: Greg Castillo MD Monocytes (Bld) [#/Vol] 0.41 10*3/uL Normal 0.00-1.00 [facility] Comment on above: Performed By: #### C DP, GLUSC #### [facility] [address] [place] [phone] Ell Tutor: Greg Castillo MD Monocytes/100 WBC (Bld) 6 % Normal 4-8 [facility] Comment on above: Performed By: #### C DP, GLUSC #### [facility] [address] [place], [place] [phone] Ell Tutor: Greg Castillo MD Neutrophil (Seg) 67 % Normal 47-75 [facility] Comment on above: Performed By: #### C DP, GLUSC #### [facility] [address] [place], [place] [phone] ([phone] Ell Tutor: Greg Castillo MD Platelet mean volume (Bld) [Entitic vol] 9.5 fL Normal 6.0-12.0 [facility] Comment on above: Performed By: #### C DP, GLUSC #### [facility] [address] [place] [address] Ell Tutor: Greg Castillo MD Platelets (Bld) [#/Vol] 155 10*3/uL Normal 140-450 [facility] Comment on above: Performed By: #### C DP, GLUSC #### [facility] [address] [place], [place] [phone] ([phone] Ell Tutor: Greg Castillo MD RBC (Bld) [#/Vol] 3.62 10*6/uL Low 4.00-5.20 [facility] Comment on above: Performed By: #### C DP, GLUSC #### [facility] [address] [place], [place] [phone] Ell Tutor: Greg Castillo MD WBC (Bld) [#/Vol] 6.4 10*3/uL Normal 3.5-11.0 [facility] Comment on above: Performed By: #### C DP, GLUSC #### [facility] [address] [place], [place] [phone] ([phone] Ell Tutor: Greg Castillo MD Glucose David Scr 50gon 2023 Glucose [Mass/Vol] 108 mg/dL Normal 70-135 [facility] Comment on above: Performed By: #### C DP, GLUSC #### [facility] [address] [place] [address] Ell Tutor: Greg Castillo MD Glu Administered via Glucola [facility] Comment on above: Performed By: #### C DP, GLUSC #### [facility] [address] [place] [address] Ell Tutor: Greg Castillo MD Glucose tolerance, 1 houron 04-28-2023 GLU ADMN Glucola [facility] Glucose 1 Hr post 50 g glucose PO [Mass/Vol] 108 mg/dL 70 - 135 mg/dL [facility] Discharge Instructionson Discharge Instructions [id number]#1.00CD:127 Normal [facility] Auto Diffon 01-03-2023 Basophils/100 WBC (Bld) 0.5 % Normal 0.0-2.0 [facility] Comment on above: Order Comment: Order Added by Discern Expert. Performed By: #### 2 166603, [id number], [id number], [id number] #### [facility] [address] [place] [address] Basophils/Leukocytes Auto (Bld) [Pure # fraction] 0.0 E9/L Normal 0.0-0.2 [facility] Comment on above: Order Comment: Order Added by Discern Expert. Performed By: #### 2 229718, 7520655, [id number], 5639005 #### [facility] [address] [place] [address] Eosinophils/100 WBC (Bld) 0.3 % Normal 0.0-8.0 [facility] Comment on above: Order Comment: Order Added by Discern Expert. Performed By: #### 2 943470, 2555398, [id number], 3237343 #### [facility] [address] [place] [address] Eosinophils/Leukocyte s Auto (Bld) [Pure # fraction] 0.0 E9/L Normal 0.0-0.5 [facility] Comment on above: Order Comment: Order Added by Discern Expert. Performed By: #### 2 489409, 5227165, [id number], 2286363 #### [facility] [address] [place] [address] Lymphocytes/100 WBC (Bld) 29.1 % Normal 14.0-50.0 [facility] Comment on above: Order Comment: Order Added by Discern Expert. Performed By: #### 2 960255, 7889273, 71534828, 3008996 #### [facility] [address] [place] [address] Lymphocytes/Leukocyte s Auto (Bld) [Pure # fraction] 1.7 E9/L Normal 1.0-4.0 [facility] Comment on above: Order Comment: Order Added by Kya Expert. Performed By: #### 2 533643, 8475084, 56528524, 5710602 #### [facility] [address] [place] [address] Monocytes/100 WBC (Bld) 5.1 % Normal 4.0-14.0 [facility] Comment on above: Order Comment: Order Added by Kya Expert. Performed By: #### 2 987993, 2367270, [id number], 1816747 #### [facility] [address] [place] [address] Monocytes/Leukocytes Auto (Bld) [Pure # fraction] 0.3 E9/L Normal 0.2-1.0 [facility] Comment on above: Order Comment: Order Added by Discern Expert. Performed By: #### 2 622441, 4123998, 36016467, 1720596 #### [facility] [address] [place] [address] Neutrophils/100 WBC (Bld) 65.0 % Normal 36.0-75.0 [facility] Comment on above: Order Comment: Order Added by Kya Expert. Performed By: #### 2 076810, 0145566, 39221844, 3091983 #### [facility] [address] [place] [address] Neutrophils/Leukocyte s Auto (Bld) [Pure # fraction] 3.8 E9/L Normal 2.0-7.5 [facility] Comment on above: Order Comment: Order Added by Discern Expert. Performed By: #### 2 120258, 1362354, 03855784, 0531332 #### [facility] [address] [place] [address] BMPon 01-03-2023 Creatinine [Mass/Vol] 0.5 mg/dL Normal 0.5-1.3 [facility] Comment on above: Performed By: #### 2 984570, 8533895, 83284827, 7113166 #### [facility] [address] [place] [address] Urea nitrogen [Mass/Vol] 8 mg/dL Normal 5-21 [facility] Comment on above: Performed By: #### 2 710886, 4608257, 26973832, 9437616 #### [facility] [address] [place] [address] Urea nitrogen/Creatinine [Mass ratio] 16 No Units Normal 10-20 [facility] Comment on above: Performed By: #### 2 518839, 9773405, 00479532, 0205497 #### [facility] [address] [place] [address] Anion gap [Moles/Vol] 7 mmol/L Normal 6-16 [facility] Comment on above: Performed By: #### 2 806440, 9167984, 28738779, 1875780 #### [facility] [address] [place] [address] Calcium [Mass/Vol] 9.3 mg/dL Normal 8.9-11.1 [facility] Comment on above: Performed By: #### 2 018109, 3048693, 40610617, 3761180 #### [facility] [address] [place] [address] Chloride [Moles/Vol] 105 mmol/L Normal 101-111 [facility] Comment on above: Performed By: #### 2 438265, 9014083, 26512617, 3045992 #### [facility] [address] [place] [address] CO2 [Moles/Vol] 24 mmol/L Normal 21-31 [facility] Comment on above: Performed By: #### 2 424485, 4647523, 63760979, 6072846 #### [facility] [address] [place] [address] Glucose [Mass/Vol] 108 mg/dL Normal 55-199 [facility] Comment on above: Result Comment: If t his glucose result represents a fasting glucose, interpretation should refer to the following reference range: 55-99 mg/dL Performed By: #### 2 437357, 6283392, 59205796, 7786441 #### [facility] [address] [place] [address] Potassium [Moles/Vol] 3.4 mmol/L Low 3.5-5.3 [facility] Comment on above: Performed By: #### 2 783534, 6398418, 82159321, 7489324 #### [facility] [address] [place] [address] Sodium [Moles/Vol] 133 mmol/L Low 135-145 [facility] Comment on above: Performed By: #### 2 890484, 7674272, 52372601, 1254282 #### [facility] [address] [place] [address] CBC w/ Auto Diffon 3 Erythrocyte distribution width (RBC) [Ratio] 12.5 % Normal 10.9-14.2 [facility] Comment on above: Performed By: #### 2 870182, 1528685, 39786927, 8682871 #### [facility] [address] [place] [address] Hematocrit (Bld) [Volume fraction] 39.8 % Normal 34.0-46.0 [facility] Comment on above: Performed By: #### 2 001257, 0953712, 29620043, 5895957 #### [facility] [address] [place] [address] Hemoglobin (Bld) [Mass/Vol] 14.2 g/dL Normal 12.0-16.0 [facility] Comment on above: Performed By: #### 2 294199, 4326100, 52838202, 6014484 #### [facility] [address] [place] [address] MCH (RBC) [Entitic mass] 31.7 pg Normal 27.0-34.0 [facility] Comment on above: Performed By: #### 2 524374, 0818196, 28781975, 3578375 #### [facility] [address] [place] [address] MCHC (RBC) [Mass/Vol] 35.6 g/dL Normal 31.4-36.0 [facility] Comment on above: Performed By: #### 2 707534, 8991272, 77745107, 7451047 #### [facility] [address] [place] [address] MCV (RBC) [Entitic vol] 89.0 fL Normal 80.0-100.0 [facility] Comment on above: Performed By: #### 2 628282, 4568991, 08424736, 0895861 #### [facility] [address] [place] [address] Platelet mean volume (Bld) [Entitic vol] 7.6 fL Normal 6.4-10.8 [facility] Comment on above: Performed By: #### 2 942617, 0601322, 04844813, 8759636 #### [facility] [address] [place] [address] Platelets (Bld) [#/Vol] 170.0 E9/L Normal 150.0-500.0 [facility] Comment on above: Performed By: #### 2 086003, 7669974, 14715027, 4102306 #### [facility] [address] [place] [address] RBC (Bld) [#/Vol] 4.5 E12/L Normal 4.3-5.9 [facility] Comment on above: Performed By: #### 2 089898, 5558261, 24921448, 9059206 #### [facility] [address] [place] [address] WBC corrected for nucl RBC Auto (Bld) [#/Vol] 5.8 E9/L Normal 4.0-11.0 [facility] Comment on above: Performed By: #### 2 850878, 0428911, 42323618, 4429150 #### [facility] [address] [place] [address] CHEMISTRYOrdered By: SYSTEM SYSTEM on 01-03-2023 Anion gap [Moles/Vol] 7 mmol/L Normal 6 - 16 mEq/L [facility] Remisol Calcium [Mass/Vol] 9.3 mg/dL Normal 8.9 - 11. 1 mg/dL [facility] Remisol Chloride [Moles/Vol] 105 mmol/L Normal 101 - 1 11 mmol/L [facility] CO2 [Moles/Vol] 24 mmol/L Normal 21 - 31 mmol/L [facility] Creatinine [Mass/Vol] 0.5 mg/dL Normal 0.5 - 1.3 mg/dL [facility] Remisol GFR/1.73 sq M.predicted among non-blacks MDRD (S/P/Bld) [Vol rate/Area] 133 mL/min/1.73 m2 Normal >=59mL/min/1. 73 m2 [facility] Chem S Glucose [Mass/Vol] 108 [...] Treatmenton 12-25 Consent for Treatment [id number] #1.00CD:127 Normal [facility] ED Clinical Summaryon 2022 ED Clinical Summary [address] [address] ED Clinical Summary Person Information Name: GRACIELA OLIVAREZ [place] Age: 27 Years : 1995 Sex: Female Language: Kazakh PCP: Gloria CASTELLANOS CNP Marital Status: Visit [...] 01/03/2023 20:50:04 01/03/2023 20:50:04 01/03/2023 20:50:04 ADDRESS: [address] [place] [id number] [facility] DOC NOTES: MEDICAL INFORMATION: Prescriptions Given: Medications to Continue with No Changes Other Medications ondansetron (Zofran ODT 4 mg Tab-Dis) 1 Tablets By Mouth every 6 hours as needed Nausea/Vomiting. Refills: 0. valacyclovir (valacyclovir 1 g Tab) take 2 tab at first sign of cold sore repeat in 12 hours.. Refills: 1. PATIENT EDUCATION INFORMATION: Instructions: Morning Sickness, Tpnb-kk-Sqmm Follow up: With: Address: When: Toni WATKINS [facility], [address] [place] [address] [place] [address] Business (1) In 3 days 01/06/2023 DIAGNOSIS: Nausea/vomiting in Normal [facility] ED Note-Physicianon 01-04-20 ED Note-Physician [...] she is dehydrated. Patient is followed by [facility] COMMUNITY MANAGER, Dr. Watkins, has had an ultrasound which [...] discharged home with instructions to follow with [facility] COMMUNITY MANAGER and is to return to the ED [...] Toni WATKINS In 3 days 01/06/2023 EDT [facility] [address] [facility] [place] [address] Business (1) Additional Instructions: Patient Education Morning Sickness, Gqoq-mg-Zprs Attestation Patient was treated and evaluated by the Physician Journeyman Mechanic. The attending physician was in the Emergency [...] is unknown (more content not included)... Normal [facility] Comment on above: Result Comment: [...] these instructions at home: Medicines ? Take xqhm-rnk-ojopagm and prescription medicines only as told by [...] Reviewed: 11/04/2020 Elsevier Patient Education ? 2022 [employer] Normal [facility] ED Patient Summaryon 023 ED Patient Summary [address] [address] Patient Discharge Instructions Person Information Name: GRACIELA OLIVAREZ Age: 27 Years Arrival Date: 01/03/2023 16:15:39 Discharge Diagnosis: Nausea/vomiting in Primary Care Physician: Gloria CASTELLANOS CNP Provider Information Primary Provider: eKmal Sharma DO [employer] Consultant:Velia Correa PA-C The exam and treatment you received in the Emergency Department were for an urgent problem and are not intended as complete care. It is important that you follow up with a doctor, nurse practitioner, or physician?s pizza hut assistant for ongoing care. If your symptoms [...] Follow-up Instructions: With: Address: When: Toni WATKINS [facility], [address] [place] [address] [place] [address] Business (1) In 3 days 01/06/2023 In the event that this physician does not participate in your insurance network, please consult with your insurance company to find a nearby participating provider. Patient Education Materials: Morning Sickness, Yqzj-ql-Veyx A MESSAGE TO ALL PATIENTS REGARDING OPIOIDS PRESCRIPTION OPIOIDS: WHAT YOU NEED TO KNOW Prescription opioids can be used to help relieve hqbpxwwk-uv-pirger pain and are often prescribed following a [...] be struggling with addiction, tell your health rental boats caretaker and ask for guidance or call [facility] [employer] (more content not included)... Normal [facility] HEMATOLOGYOrdered By: SYSTEM SYSTEM on [...] 2022 Bilirubin Ql (U) 1+ Abnormal Negative [facility] Comment on above: Performed By: #### 1 [id number] #### [facility] [address] [place] [address] Clarity (U) CLEAR Normal Clear [facility] Comment on above: Performed By: #### 1 [id number] #### [facility] [address] [place] [address] Color (U) YELLOW Normal Yellow [facility] Comment on above: Performed By: #### 1 [id number] #### [facility] [address] [place] [address] Epithelial cells.squamous LM.HPF (Urine sed) [#/Area] 3-4 Normal 0-2 [facility] Comment on above: Performed By: #### 1 [id number] #### [facility] [address] [place] [address] Glucose Test strip (U) [Mass/Vol] Negative Normal Negative [facility] Comment on above: Performed By: #### 1 [id number] #### [facility] [address] [place] [address] Hemoglobin Ql (U) 2+ Abnormal Negative [facility] Comment on above: Performed By: #### 1 [id number] #### [facility] [address] [place] [address] Ketones (U) [Mass/Vol] 2+ Abnormal Negative [facility] Comment on above: Performed By: #### 1 [id number] #### [facility] [address] [place] [address] [place].plasma/Lithiu m.RBC (Bld) [Mass ratio] 0-3 Normal 0-3 [facility] Comment on above: Performed By: #### 1 [id number] #### [facility] [address] [place] [address] Mucus Ql (Urine sed) 2+ Normal [facility] Comment on above: Performed By: #### 1 [id number] #### [facility] [address] [place] [address] Nitrite Ql (U) Negative Normal Negative [facility] Comment on above: Performed By: #### 1 [id number] #### [facility] [address] [place] [address] pH (U) 6.0 [pH] Invalid Interpretation Code 5.0-9.0 [facility] Comment on above: Performed By: #### 1 [id number] #### [facility] [address] [place] [address] Protein (U) [Mass/Vol] 1+ Abnormal Negative [facility] Comment on above: Performed By: #### 1 [id number] #### [facility] [address] [place] [address] Specific gravity (U) [Rel density] >=1.030 Invalid Interpretation Code 1.005-1.030 [facility] Comment on above: Performed By: #### 1 [id number] #### [facility] [address] [place] [address] Type of Urine collection method Clean Catch Normal [facility] Comment on above: Performed By: #### 1 [id number] #### [facility] [address] [place] [id number] Urobilinogen Qn (U) 1.0 {Maggy'U}/dL Normal 0.0-1.0 [facility] Comment on above: Performed By: #### 1 [id number] #### [facility] [address] [place] [address]2005 WBC Auto Ql (U) Negative Normal Negative [facility] Comment on above: Performed By: #### 1 [id number] #### [facility] [address] [place] [address]139 WBC LM.HPF (Urine sed) [#/Area] 0-5 Normal 0-5 [facility] Comment on above: Performed By: #### 1 [id number] #### [facility] [address] [place] [address] URINALYSISOrdered By: Dianne Ortiz on 01-03-2023 Bilirubin [...] Interpretation Code Negative [facility] UA Auto SS [place].plasma/Lithiu m.RBC (Bld) [Mass ratio] 0-3 /HPF Normal [...] [facility] UA Auto SS Urobilinogen Qn (U) 1.8055226 {Maggy'U}/dL Normal 0.0 - 1.0 EU/dL [facility] UA Auto SS WBC Auto Ql (U) Negative (01/03/23 5:04 PM) Normal Negative [facility] UA Auto SS WBC LM.HPF (Urine sed) [#/Area] 0-5 /HPF Normal 0-5/HPF [facility] UA Auto SS eGFRon 01-03-2023 GFR/1.73 sq M.predicted among non-blacks MDRD (S/P/Bld) [Vol rate/Area] 133 mL/min/1.73 m2 Normal >=59 [facility] Comment on above: Order Comment: Order added by Discern Expert. Result Comment: Clinical Biostatistician diya kidney disease could be indicated at eGFR's of less than 60 mL/min/1.73m2. Kidney failure is indicated at less than 15 mL/min/1.73m2. Performed By: #### 2 [id number], [id number] #### [facility] [address] [place] [address] CULTURE URINEon 01-10-2022 CULTURE URINE Culture Observations: MODERATE GROWTH OF MIXED GENITAL RIC. NO POTENTIAL PATHOGENS SEEN. Normal [facility] Comment on above: Performed By: #### U RCX #### [facility] [address] [place] [address] Dr. Narciso Amaral UA (CLEAN/CATCH) EMERGENCY DISPATCH OPERATOR/MICRO I F IND.on 01-10-2022 Bilirubin Ql (U) Negative Normal NEGATIVE [facility] Comment on above: Performed By: #### U MICRO, UACSIND #### [facility] [address] [place] [address] Dr. Narciso Amaral Clarity (U) CLEAR Normal CLEAR [facility] Comment on above: Performed By: #### U MICRO, UACSIND #### [facility] [address] [place] [address] Dr. Narciso Amaral Color (U) LT. YELLOW Normal YELLOW [facility] Comment on above: Performed By: #### U MICRO, UACSIND #### [facility] [address] [place] [address] Dr. Narciso Amaral Glucose Ql (U) Negative Normal NEGATIVE [facility] Comment on above: Performed By: #### U MICRO, UACSIND #### [facility] [address] [place] [address] Dr. Narciso Amaral Hemoglobin Ql (U) LARGE Abnormal NEGATIVE [facility] Comment on above: Performed By: #### U MICRO, UACSIND #### [facility] [address] [place] [address] Dr. Narciso Amaral Ketones Ql (U) Negative Normal NEGATIVE [facility] Comment on above: Performed By: #### U MICRO, UACSIND #### [facility] [address] [place] [address] Dr. Narciso Amaral LEUKOCYTES TRACE Abnormal NEGATIVE [facility] Comment on above: Performed By: #### U MICRO, UACSIND #### [facility] [address] [address] [address] Narciso Amaral Nitrite Ql (U) Negative Normal NEGATIVE [facility] Comment on above: Performed By: #### U MICRO, UACSIND #### [facility] [address] [address] [address] Narciso Amaral pH (U) 6.0 [pH] Normal 5-9 [facility] Comment on above: Performed By: #### U MICRO, UACSIND #### [facility] [address] [address] [address] Narciso Amaral SPEC GRAVITY <=1.005 Abnormal 1.005-<=1.025 [facility] Comment on above: Performed By: #### U MICRO, UACSIND #### [facility] [address] [place] [address] Dr. Narciso Amaral UA PROTEIN Negative Normal NEGATIVE/ TRACE [facility] Comment on above: Performed By: #### U MICRO, UACSIND #### [facility] [address] [place] [address] Dr. Narciso Amaral UR MICRO IND INDICATED Normal [facility] Comment on above: Performed By: #### U MICRO, UACSIND #### [facility] [address] [address] [address] Narciso Amaral Urobilinogen Qn (U) 0.2 {Maggy'U}/dL Normal 0.2 - 1. 0 [facility] Comment on above: Performed By: #### U MICRO, UACSIND #### [facility] [address] [address] [address] Narciso Amaral URINE MICROSCOPIC ONLYon BACTERIA SMALL Abnormal NONE SEEN [facility] Comment on above: Performed By: #### U MICRO, UACSIND #### [facility] [address] [address] [address] Narciso Amaral Bacteria identified Cx Nom (U) INDICATED Normal [facility] Comment on above: Performed By: #### U MICRO, UACSIND #### [facility] [address] [place] [address] Dr. Nraciso Amaral CAST NONE SEEN Normal NONE SEEN [facility] Comment on above: Performed By: #### U MICRO, UACSIND #### [facility] [address] [place] [address] Dr. Narciso Amaral Crystals LM Nom (Urine sed) NONE SEEN Normal NONE SEEN [facility] Comment on above: Performed By: #### U MICRO, UACSIND #### [facility] [address] [place] [address] Dr. Narciso Amaral Epithelial cells LM Ql (Urine sed) FEW Abnormal NONE SEEN /RARE [facility] Comment on above: Performed By: #### U MICRO, UACSIND #### [facility] [address] [place] [address] Dr. Narciso Amaral MUCOUS NONE SEEN Normal NONE SEEN [facility] Comment on above: Performed By: #### U MICRO, UACSIND #### [facility] [address] [place] [address] Dr. Narciso Amaral RBC 5-10 Abnormal 0-2 [facility] Comment on above: Performed By: #### U MICRO, UACSIND #### [facility] [address] [place] [address] Dr. Narciso Amaral WBC 0-2 Abnormal NONE SEEN [facility] Comment on above: Performed By: #### U MICRO, UACSIND #### [facility] [address] [place] [address] Dr. Narciso Amaral CBC AUTO DIFFon 01-09-2022 BASO # 0.0 103/ul Normal 0.0-0.1 [facility] Comment on above: Performed By: #### C BC #### [facility] [address] [place] [address] Dr. Narciso Amaral Basophils/100 WBC (Bld) 0.2 % Normal 0.2-2.0 [facility] Comment on above: Performed By: #### C BC #### [facility] [address] [place] [address] Dr. Narciso Amaral EO # 0.0 103/ul Normal 0.0-0.7 [facility] Comment on above: Performed By: #### C BC #### [facility] [address] [place] [address] Dr. Narciso Amaral Eosinophils/100 WBC (Bld) 0.1 % Critically low 0.9-7.0 [facility] Comment on above: Performed By: #### C BC #### [facility] [address] [place] [address] Dr. Narciso Amaral Erythrocyte distribution width (RBC) [Ratio] 12.8 % Normal 11.0-15.0 [facility] Comment on above: Performed By: #### C BC #### [facility] [address] [place] [address] Dr. Narciso Amaral Hematocrit (Bld) [Volume fraction] 30.8 % Critically low 36.0-48.0 [facility] Comment on above: Performed By: #### C BC #### [facility] [address] [place] [address] Dr. Narciso Amaral Hemoglobin (Bld) [Mass/Vol] 10.0 g/dL Critically low 12.0-16.0 [facility] Comment on above: Performed By: #### C BC #### [facility] [address] [place] [address] Dr. Narciso Amaral IG # 0.02 10e3/ul Normal 0.00-0.03 [facility] Comment on above: Performed By: #### C BC #### [facility] [address] [place] [address] Dr. Narciso Amaral IG % 0.2 % Normal 0.0-0.5 [facility] Comment on above: Performed By: #### C BC #### [facility] [address] [place] [address] Dr. Narciso Amaral LYMPH # 1.4 103/ul Normal 1.2-3.8 [facility] Comment on above: Performed By: #### C BC #### [facility] [address] [place] [address] Dr. Narciso Amaral Lymphocytes/100 WBC (Bld) 14.0 % Critically low 20.5-60.0 [facility] Comment on above: Performed By: #### C BC #### [facility] [address] [place] [address] Dr. Narciso Amaral MANUAL DIFF REQ NO Normal [facility] Comment on above: Performed By: #### C BC #### [facility] [address] [place] [address] Dr. Narciso Amaral MCH (RBC) [Entitic mass] 31.7 pg Normal 26.7-34.0 [facility] Comment on above: Performed By: #### C BC #### [facility] [address] [place] [address] Dr. Narciso Amaral MCHC (RBC) [Mass/Vol] 32.5 g/dL Normal 29.9-35.2 [facility] Comment on above: Performed By: #### C BC #### [facility] [address] [place] [address] Dr. Narciso Amaral MCV (RBC) [Entitic vol] 97.8 fL Normal 81.0-99.0 [facility] Comment on above: Performed By: #### C BC #### [facility] [address] [place] [address] Dr. Narciso Amaral MONO # 0.8 103/ul Normal 0.3-0.8 [facility] Comment on above: Performed By: #### C BC #### [facility] [address] [place] [address] Dr. Narciso Amaral Monocytes/100 WBC (Bld) 8.2 % Normal 1.7-12.0 [facility] Comment on above: Performed By: #### C BC #### [facility] [address] [place] [address] Dr. Narciso Amaral NEUT # 7.9 103/ul Critically high 1.4-6.5 [facility] Comment on above: Performed By: #### C BC #### [facility] [address] [place] [address] Dr. Narciso Amaral Neutrophils/100 WBC (Bld) 77.3 % Critically high 43.0-75.0 [facility] Comment on above: Performed By: #### C BC #### [facility] [address] [place] [address] Dr. Narciso Amaral Platelet mean volume (Bld) [Entitic vol] 9.9 fL Normal 9.5-13.5 [facility] Comment on above: Performed By: #### C BC #### [facility] [address] [place] [address] Dr. Narciso Amaral PLT 143 103/ul Critically low 150-450 [facility] Comment on above: Performed By: #### C BC #### [facility] [address] [place] [address] Dr. Narciso Amaral RBC 3.15 106/ul Critically low 4.20-5.40 [facility] Comment on above: Performed By: #### C BC #### [facility] [address] [place] [address] Dr. Narciso Amaral WBC 10.2 103/ul Normal 4.0-11.0 [facility] Comment on above: Performed By: #### C BC #### [facility] [address] [place] [address] Dr. Narciso Amaral CBC AUTO DIFFon 01-08-2022 BASO # 0.0 103/ul Normal 0.0-0.1 [facility] Comment on above: Performed By: #### C BC #### [facility] [address] [place] [address] Dr. Narciso Amaral Basophils/100 WBC (Bld) 0.3 % Normal 0.2-2.0 [facility] Comment on above: Performed By: #### C BC #### [facility] [address] [place] [address] Dr. Narciso Amaral EO # 0.0 103/ul Normal 0.0-0.7 [facility] Comment on above: Performed By: #### C BC #### [facility] [address] [place] [address] Dr. Narciso Amaral Eosinophils/100 WBC (Bld) 0.4 % Critically low 0.9-7.0 [facility] Comment on above: Performed By: #### C BC #### [facility] [address] [place] [address] Dr. Narciso Amaral Erythrocyte distribution width (RBC) [Ratio] 12.7 % Normal 11.0-15.0 [facility] Comment on above: Performed By: #### C BC #### [facility] [address] [place] [address] Dr. Narciso Amaral Hematocrit (Bld) [Volume fraction] 38.0 % Normal 36.0-48.0 [facility] Comment on above: Performed By: #### C BC #### [facility] [address] [place] [address] Dr. Narciso Amaral Hemoglobin (Bld) [Mass/Vol] 12.5 g/dL Normal 12.0-16.0 [facility] Comment on above: Performed By: #### C BC #### [facility] [address] [place] [address] Dr. Narciso Amaral IG # 0.03 10e3/ul Normal 0.00-0.03 [facility] Comment on above: Performed By: #### C BC #### [facility] [address] [place] [address] Dr. Narciso Amaral IG % 0.4 % Normal 0.0-0.5 [facility] Comment on above: Performed By: #### C BC #### [facility] [address] [place] [address] Dr. Narciso Amaral LYMPH # 1.3 103/ul Normal 1.2-3.8 [facility] Comment on above: Performed By: #### C BC #### [facility] [address] [place] [address] Dr. Narciso Amaral Lymphocytes/100 WBC (Bld) 17.6 % Critically low 20.5-60.0 [facility] Comment on above: Performed By: #### C BC #### [facility] [address] [place] [address] Dr. Narciso Amaral MANUAL DIFF REQ NO Normal [facility] Comment on above: Performed By: #### C BC #### [facility] [address] [place] [address] Dr. Narciso Amaral MCH (RBC) [Entitic mass] 31.6 pg Normal 26.7-34.0 [facility] Comment on above: Performed By: #### C BC #### [facility] [address] [place] [address] Dr. Narciso Amaral MCHC (RBC) [Mass/Vol] 32.9 g/dL Normal 29.9-35.2 [facility] Comment on above: Performed By: #### C BC #### [facility] [address] [place] [address] Dr. Narciso Amaral MCV (RBC) [Entitic vol] 96.0 fL Normal 81.0-99.0 [facility] Comment on above: Performed By: #### C BC #### [facility] [address] [place] [address] Dr. Narciso Amaral MONO # 0.5 103/ul Normal 0.3-0.8 [facility] Comment on above: Performed By: #### C BC #### [facility] [address] [place] [address] Dr. Narciso Amaral Monocytes/100 WBC (Bld) 6.2 % Normal 1.7-12.0 [facility] Comment on above: Performed By: #### C BC #### [facility] [address] [place] [address] Dr. Narciso Amaral NEUT # 5.5 103/ul Normal 1.4-6.5 [facility] Comment on above: Performed By: #### C BC #### [facility] [address] [place] [address] Dr. Narciso Amaral Neutrophils/100 WBC (Bld) 75.1 % Critically high 43.0-75.0 [facility] Comment on above: Performed By: #### C BC #### [facility] [address] [place] [address] Dr. Narciso Amaral Platelet mean volume (Bld) [Entitic vol] 10.3 fL Normal 9.5-13.5 [facility] Comment on above: Performed By: #### C BC #### [facility] [address] [address] [address] Narciso Amaral PLT 159 103/ul Normal 150-450 [facility] Comment on above: Performed By: #### C BC #### [facility] [address] [place] [address] Dr. Narciso Amaral RBC 3.96 106/ul Critically low 4.20-5.40 [facility] Comment on above: Performed By: #### C BC #### [facility] [address] [place] [address] Dr. Narciso Amaral WBC 7.4 103/ul Normal 4.0-11.0 [facility] Comment on above: Performed By: #### C BC #### [facility] [address] [place] [address] Dr. Narciso Amaral Covid-19 PCR ([facility])on 12-25 SARS-CoV-2 (COVID-19) RNA MOHAN+probe Ql (Unsp spec) Not detected Normal NOT DETECTED [facility] Comment on above: Result Comment: When [...] for this test is supported by the Drug Enforcement Administration Agent of Health and Human Service's declaration that [...] used). Performed By: #### C VDTBH #### [facility] [address] [place] [address] Dr. Narciso Amaral DRUG SCREEN RAPID (URINE)on 01-08-2022 AMP Negative Normal NEGATIVE [facility] Comment on above: Performed By: #### C T/NGNA #### [facility] [address] [place] [address] Dr. Narciso Amaral BAR Negative Normal NEGATIVE [facility] Comment on above: Performed By: #### C T/NGNA #### [facility] [address] [place] [address] Dr. Narciso Amaral BUP Negative Normal NEGATIVE [facility] Comment on above: Performed By: #### C T/NGNA #### [facility] [address] [place] [address] Dr. Narciso Amaral BZO Negative Normal NEGATIVE [facility] Comment on above: Performed By: #### C T/NGNA #### [facility] [address] [place] [address] Dr. Narciso Amaral TREY Negative Normal NEGATIVE [facility] Comment on above: Performed By: #### C T/NGNA #### [facility] [address] [place] [address] Dr. Narciso Amaral CUT-OFFS SEE BELOW Normal [facility] Comment on above: Result Comment: AMP [...] ng/mL Performed By: #### C T/NGNA #### [facility] [address] [place] [address] Dr. Narciso Amaral DRUG CUT HEADER DRUG CLASS TEST SYSTEM CUT-OFF CONCENTRATIONS ARE FOLLOWS: Normal [facility] Comment on above: Performed By: #### C T/NGNA #### [facility] [address] [place] [address] Dr. Narciso Amaral mAMP Negative Normal NEGATIVE [facility] Comment on above: Performed By: #### C T/NGNA #### [facility] [address] [address] [address] Narciso Amaral MTD Negative Normal NEGATIVE [facility] Comment on above: Performed By: #### C T/NGNA #### [facility] [address] [place] [address] Dr. Narciso Amaral OPI Negative Normal NEGATIVE [facility] Comment on above: Performed By: #### C T/NGNA #### [facility] [address] [address] [address] Narciso Amaral OXY Negative Normal NEGATIVE [facility] Comment on above: Performed By: #### C T/NGNA #### [facility] [address] [place] [address] Dr. Narciso Amaral PCP Negative Normal NEGATIVE [facility] Comment on above: Performed By: #### C T/NGNA #### [facility] [address] [address] [address] Narciso Amaral PPX Negative Normal NEGATIVE [facility] Comment on above: Performed By: #### C T/NGNA #### [facility] [address] [address] [address] Narciso Amaral TCA Negative Normal NEGATIVE [facility] Comment on above: Performed By: #### C T/NGNA #### [facility] [address] [place] [address] Dr. Narciso Amaral THC Negative Normal NEGATIVE [facility] Comment on above: Performed By: #### C T/NGNA #### [facility] [address] [place] [address] Dr. Narciso Amaral TYPE AND SCREENon 01-08-2022 TYPE AND SCREEN Negative Normal [facility] Comment on above: Performed By: #### C T/NGNA #### [facility] [address] [place] [address] Dr. Narciso Amaral US PREG BIOPHY W [...] KRISTINA ESTRADA Date: 2022-01-07 16:20 Normal [facility] US PREG BIOPHY W NON STRESSo [...] KRISTINA ESTRADA Date: 2021-12-31 16:27 Normal [facility] VAGINITIS/VAGINOSIS DNA PROB Julius 12-26-2021 Fany species Negative Normal Negative [facility] Comment on above: Performed By: #### C BC #### [facility] [address] [address] [address] Narciso Amaral Gardnerella vaginalis Negative Normal Negative [facility] Comment on above: Performed By: #### C BC #### [facility] [address] [address] [address] Narciso Amaral Trichomonas vaginalis Negative Normal Negative [facility] Comment on above: Performed By: #### C BC #### [facility] [address] [address] [address] Narciso Amaral US PREG BIOPHY W [...] KRISTINA ESTRADA Date: 2021-12-25 09:13 Normal [facility] GROUP B STREP CULTUREon 11-26 S. agalactiae Ag Ql (Unsp spec) Culture Observations: NEGATIVE FOR GROUP B STREPTOCOCCUS. Normal [facility] Comment on above: Performed By: #### C Zoran/HAWA #### [facility] [address] [place] [address] Dr. Narciso Amaral US PREG GROWTHon 12-24-2021 US PREG GROWTH Ultrasound biophysical profile Ultrasound obstetrical, limited CLINICAL: Oligohydramnios follow-up. TECHNIQUE: Transabdominal obstetrical ultrasound was performed. Ultrasound biophysical profile was also performed by trumpet player. FINDINGS: 09/29/2021. FETUS AND PLACENTA: There is [...] gestational age according to Hadlock criteria. Remarks: Conference Services Coordinator reports that Dr. Watkins is aware of findings. Electronically authenticated by: AMPARO PATEL Date: 2021-12-24 12:27 [facility] Hematocrit (Bld) [Volume fraction] 35.7 % Low 36 - 46 % [facility] Hemoglobin (Bld) [Mass/Vol] 11.9 g/dL Low 12.0 - 16.0 g/dL [facility] Interpretation and review of laboratory results Abnormal [facility] MCH (RBC) [Entitic mass] 32.8 pg 26 - 34 pg [facility] MCHC (RBC) [Mass/Vol] 33.4 g/dL 31 - 37 g/dL [facility] MCV (RBC) [Entitic vol] 98.1 fL 80 - 100 fL [facility] Platelet distribution width (Bld) [Ratio] 12.1 % 12.1 - 15.2 % [facility] Platelets (Bld) [#/Vol] 178 10*3/uL [facility] RBC (Bld) [#/Vol] 3.64 10*6/uL Low 4.0 - 5.2 m/uL [facility] WBC (Bld) [#/Vol] 7.6 10*3/uL [facility] Glucose tolerance, 1 houron 10-28-2021 GLU ADMN Glucola [facility] Glucose tolerance screen 50g 134 mg/dL 70 - 135 mg/dL [facility] US PREG INCOMPLETE ANATOMYon 09-29-2021 [...] by: GREG RODNEY Date: 2021-09-29 08:50 Normal [facility] US PREG ANATOMY SINGLEon US PREG ANATOMY [...] KRISTINA ESTRADA Date: 2021-09-01 16:26 Normal [facility] AFP MATERNAL FOR SPINA BIFID Aon 08-25-2021 AFP MoM 0.71 Normal [facility] Comment on above: Performed By: #### C BC #### [facility] [address] [address] [address] Narciso Amaral AFP Value 45.2 ng/mL Normal [facility] Comment on above: Performed By: #### C BC #### [facility] [address] [address] [address] Narciso Amaral AFP, Serum for Spina Bifida Report Normal [facility] Comment on above: Performed By: #### C BC #### [facility] [address] [address] [address] Narciso Amaral Comment Comment Normal [facility] Comment on above: Result Comment: Ky Magallon, Ph.D., [facility] Director . References: Available Upon Request. . Multiples Of Median Cutoffs For AFP Elevations Bernstein 2.5 Black 2.8 IDD 2.0 Twins 4.5 Abbreviation Definitions IDD - Insulin Dep Diabetes OSBR - Open Spina Bifida Risk . For further inquiries contact [employer] at [phone]. Performed By: #### C BC #### [facility] [address] [address] [address] Narciso Echevarria Age Collection Date 20.[address] [facility] Comment on above: Performed By: #### C BC #### [facility] [address] [address] [address] Narciso Amaral Gestat, Age Based on LMP Normal [facility] Comment on above: Result Comment: Reca lculations are not recommended when gestational dating by LMP and ultrasound are within 10 days. Performed By: #### C BC #### [facility] [address] [address] [address] Narciso Amaral Insulin Dep Diabetes No Normal [facility] Comment on above: Performed By: #### C BC #### [facility] [address] [place] [address] Dr. Narciso Amaral Interpretation Comment Normal [facility] Comment on above: Result Comment: [...] Customer Services to discuss available options. The [employer] recommends amniocentesis be offered to women age 35 and older. Performed By: #### C BC #### [facility] [address] [address] [address] Narciso Amaral [age] [facility] Comment on above: Performed By: #### C BC #### [facility] [address] [address] [address] Narciso Amaral Multiple Gestation No Normal [facility] Comment on above: Performed By: #### C BC #### [facility] [address] [address] [address] Narciso Amaral [place] [address] Normal [facility] Comment on above: Performed By: #### C BC #### [facility] [address] [address] [address] Narciso Amaral PDF . [facility] Comment on above: Performed By: #### C BC #### [facility] [address] [address] [address] Narciso Amaral Race [facility] Comment on above: Performed By: #### C BC #### [facility] [address] [address] [address] Narciso Amaral Test Results: Negative [facility] Comment on above: Performed By: #### C BC #### [facility] [address] [address] [address] Narciso Amaral PAP ACOG PANEL 2: 21 to 29on 08-23-2021 . . [facility] Comment on above: Performed By: #### C BC #### [facility] [address] [place] [address] Dr. Narciso Amaral Age Gdln ACOG Testing - [facility] Comment on above: Performed By: #### C BC #### [facility] [address] [place] [address] Dr. Narciso Amaral DIAGNOSIS: Comment [facility] Comment on above: Result Comment: NEGA TIVE FOR INTRAEPITHELIAL LESION OR MALIGNANCY. Performed By: #### C BC #### [facility] [address] [place] [address] Dr. Narciso Amaral Methodology: Comment [facility] Comment on above: Result Comment: This liquid based ThinPrep(R) pap test was screened with the use of an image guided system. Performed By: #### C BC #### [facility] [address] [place] [address] Dr. Narciso Amaral Note: Comment [facility] Comment on above: Result Comment: The Pap smear is a screening test designed to aid in the detection of premalignant and malignant conditions of the uterine cervix. It is not a diagnostic procedure and should not be used as the sole means of detecting cervical cancer. Both false-positive and false-negative reports do occur. . Performed By: #### C BC #### [facility] [address] [place] [address] Dr. Narciso Amaral Performed by: Comment Normal [facility] Comment on above: Result Comment: [employer] Technician (ASCP) Performed By: #### C BC #### [facility] [address] [place] [address] Dr. Narciso Amaral Reflex Criteria: Comment Normal [facility] Comment on above: Result Comment: The HPV DNA reflex criteria were not met with this specimen result therefore, no HPV testing was performed. . Performed By: #### C BC #### [facility] [address] [place] [address] Dr. Narciso Amaral Specimen adequacy: Comment Normal [facility] Comment on above: Result Comment: Sati sfactory for evaluation. No endocervical component is identified. Performed By: #### C BC #### [facility] [address] [place] [address] Dr. Narciso Amaral CHLAMYDIA/GONOCOCCUS MOHAN (SW AB/URINE/PAPon 08-21-2021 Chlamydia trachomatis, MOHAN Negative Normal Negative [facility] Comment on above: Performed By: #### C T/NGNA #### [facility] [address] [place] [address] Dr. Narciso Amaral Neisseria gonorrhoeae, MOHAN Negative Normal Negative [facility] Comment on above: Performed By: #### C T/NGNA #### [facility] [address] [place] [address] Dr. Narciso Amaral HEP B SURFACE ANTIGEN SCREEN on 07-04-2021 HBsAg Screen Negative Normal Negative [facility] Comment on above: Performed By: #### N BOX #### [facility] [address] [place] [address] Dr. Narciso Amaral HEPATITIS C VIRUS AB W/ REFL EX QUANTon 07-04-2021 HCV AB <0.1 Normal 0.0-0.9 [facility] Comment on above: Performed By: #### C BC #### [facility] [address] [place] [address] Dr. Naricso Amaral Interpretation: Comment Normal [facility] Comment on above: Result Comment: Nega tive Not infected with HCV, unless recent infection is suspected or other evidence exists to indicate HCV infection. Performed By: #### C BC #### [facility] [address] [place] [address] Dr. Narciso Amaral HIV 1 AND 2 WITH REFLEXon HIV Screen 4th Generation wRfx Non-Reactive Normal Non Reactive [facility] Comment on above: Result Comment: HIV Negative HIV-1/HIV-2 antibodies and HIV-1 p24 antigen were NOT detected. There is no laboratory evidence of HIV infection. Performed By: #### N BOX #### [facility] [address] [place] [address] Dr. Narciso Amaral RPR QUANTon 07-04-2021 Rapid Plasma Reagin, Quant Non-Reactive Normal NonRea<1:1 [facility] Comment on above: Performed By: #### C BC #### [facility] [address] [place] [address] Dr. Narciso Amaral RUBELLA AB IGGon 07-04-2021 Rubella Antibodies, IgG <0.90 Critically low Immune >0.99 [facility] Comment on above: Result Comment: Non- immune <0.90 Equivocal 0.90 - 0.99 Immune >0.99 Performed By: #### R UBIGG #### [facility] [address] [place] [address] Dr. Narciso Amaral CBC AUTO DIFFon 07-03-2021 BASO # 0.0 103/ul Normal 0.0-0.1 [facility] Comment on above: Performed By: #### C BC #### [facility] [address] [place] [address] Dr. Narciso Amaral Basophils/100 WBC (Bld) 0.4 % Normal 0.2-2.0 [facility] Comment on above: Performed By: #### C BC #### [facility] [address] [place] [address] Dr. Narciso Amaral EO # 0.0 103/ul Normal 0.0-0.7 [facility] Comment on above: Performed By: #### C BC #### [facility] [address] [place] [address] Dr. Narciso Amaral Eosinophils/100 WBC (Bld) 0.4 % Critically low 0.9-7.0 [facility] Comment on above: Performed By: #### C BC #### [facility] [address] [place] [address] Dr. Narciso Amaral Erythrocyte distribution width (RBC) [Ratio] 11.9 % Normal 11.0-15.0 [facility] Comment on above: Performed By: #### C BC #### [facility] [address] [place] [address] Dr. Narciso Amaral Hematocrit (Bld) [Volume fraction] 33.0 % Critically low 36.0-48.0 [facility] Comment on above: Performed By: #### C BC #### [facility] [address] [place] [address] Dr. Narciso Amaral Hemoglobin (Bld) [Mass/Vol] 11.3 g/dL Critically low 12.0-16.0 [facility] Comment on above: Performed By: #### C BC #### [facility] [address] [place] [address] Dr. Narciso Amaral IG # 0.01 10e3/ul Normal 0.00-0.03 [facility] Comment on above: Performed By: #### C BC #### [facility] [address] [place] [address] Dr. Narciso Amaral IG % 0.2 % Normal 0.0-0.5 [facility] Comment on above: Performed By: #### C BC #### [facility] [address] [place] [address] Dr. Narciso Amaral LYMPH # 1.9 103/ul Normal 1.2-3.8 [facility] Comment on above: Performed By: #### C BC #### [facility] [address] [place] [address] Dr. Narciso Amaral Lymphocytes/100 WBC (Bld) 35.9 % Normal 20.5-60.0 [facility] Comment on above: Performed By: #### C BC #### [facility] [address] [place] [address] Dr. Narciso Amaral MANUAL DIFF REQ NO Normal [facility] Comment on above: Performed By: #### C BC #### [facility] [address] [place] [address] Dr. Narciso Amaral MCH (RBC) [Entitic mass] 31.6 pg Normal 26.7-34.0 [facility] Comment on above: Performed By: #### C BC #### [facility] [address] [place] [address] Dr. Narciso Amaral MCHC (RBC) [Mass/Vol] 34.2 g/dL Normal 29.9-35.2 [facility] Comment on above: Performed By: #### C BC #### [facility] [address] [place] [address] Dr. Narciso Amaral MCV (RBC) [Entitic vol] 92.2 fL Normal 81.0-99.0 [facility] Comment on above: Performed By: #### C BC #### [facility] [address] [place] [address] Dr. Narciso Amaral MONO # 0.2 103/ul Critically low 0.3-0.8 [facility] Comment on above: Performed By: #### C BC #### [facility] [address] [place] [address] Dr. Narciso Amaral Monocytes/100 WBC (Bld) 4.2 % Normal 1.7-12.0 [facility] Comment on above: Performed By: #### C BC #### [facility] [address] [place] [address] Dr. Narciso Amaral NEUT # 3.1 103/ul Normal 1.4-6.5 [facility] Comment on above: Performed By: #### C BC #### [facility] [address] [place] [address] Dr. Narciso Amaral Neutrophils/100 WBC (Bld) 58.9 % Normal 43.0-75.0 [facility] Comment on above: Performed By: #### C BC #### [facility] [address] [place], [place] [id number] Dr. Narciso Amaral Platelet mean volume (Bld) [Entitic vol] 10.4 fL Normal 9.5-13.5 [facility] Comment on above: Performed By: #### C BC #### [facility] [address] [place] [address] Dr. Narciso Amaral PLT 158 103/ul Normal 150-450 [facility] Comment on above: Performed By: #### C BC #### [facility] [address] [address] [address] Narciso Amaral RBC 3.58 106/ul Critically low 4.20-5.40 [facility] Comment on above: Performed By: #### C BC #### [facility] [address] [place] [address] Dr. Narciso Amaral WBC 5.2 103/ul Normal 4.0-11.0 [facility] Comment on above: Performed By: #### C BC #### [facility] [address] [place] [address] Dr. Narciso Amaral CULTURE URINEon 07-03-2021 CULTURE URINE Culture Observations: No growth Normal [facility] Comment on above: Performed By: #### U RCX #### [facility] [address] [place] [address] Dr. Narciso Amaral GLYCOHEMOGLOBIN A1Con 2021 ADA RECOMMENDATION ADA THERAPEUTIC TARGET 6.0 - 7.0 ACTION SUGGESTED > 7.0 Normal [facility] Comment on above: Performed By: #### N BOX #### [facility] [address] [place] [address] Dr. Narciso Amaral Glucose [Mass/Vol] 88 mg/dL Normal [facility] Comment on above: Performed By: #### N BOX #### [facility] [address] [place] [address] Dr. Narciso Amaral HbA1c (Bld) [Mass fraction] 4.7 % Normal <=6.0 [facility] Comment on above: Performed By: #### N BOX #### [facility] [address] [place] [address] Dr. Narciso Amaral BERNADINE BOX TEST PT SEND OUTo n 07-03-2021 SENT TO REF LAB 07/03/2021 Normal [facility] Comment on above: Performed By: #### N BOX #### [facility] [address] [place] [address] Dr. Narciso Amaral TYPE AND SCREENon 07-03-2021 TYPE AND SCREEN Negative Normal [facility] Comment on above: Performed By: #### C T/NGNA #### [facility] [address] [place] [address] Dr. Narciso Amaral CBC AUTO DIFFon 06-17-2021 BASO # 0.0 103/ul Normal 0.0-0.1 [facility] Comment on above: Performed By: #### N BOX #### [facility] [address] [place] [address] Dr. Narciso Amaral Basophils/100 WBC (Bld) 0.4 % Normal 0.2-2.0 [facility] Comment on above: Performed By: #### N BOX #### [facility] [address] [place] [address] Dr. Narciso Amaral EO # 0.0 103/ul Normal 0.0-0.7 [facility] Comment on above: Performed By: #### N BOX #### [facility] [address] [place] [address] Dr. Narciso Amaral Eosinophils/100 WBC (Bld) 0.0 % Critically low 0.9-7.0 [facility] Comment on above: Performed By: #### N BOX #### [facility] [address] [place] [address] Dr. Narciso Amaral Erythrocyte distribution width (RBC) [Ratio] 11.6 % Normal 11.0-15.0 [facility] Comment on above: Performed By: #### N BOX #### [facility] [address] [place] [address] Dr. Narciso Amaral Hematocrit (Bld) [Volume fraction] 42.6 % Normal 36.0-48.0 [facility] Comment on above: Performed By: #### N BOX #### [facility] [address] [place] [address] Dr. Narciso Amaral Hemoglobin (Bld) [Mass/Vol] 14.9 g/dL Normal 12.0-16.0 [facility] Comment on above: Performed By: #### N BOX #### [facility] [address] [place] [address] Dr. Narciso Amaral IG # 0.02 10e3/ul Normal 0.00-0.03 [facility] Comment on above: Performed By: #### N BOX #### [facility] [address] [place] [address] Dr. Narciso Amaral IG % 0.3 % Normal 0.0-0.5 [facility] Comment on above: Performed By: #### N BOX #### [facility] [address] [place] [address] Dr. Narciso Amaral LYMPH # 2.1 103/ul Normal 1.2-3.8 [facility] Comment on above: Performed By: #### N BOX #### [facility] [address] [place] [address] Dr. Narciso Amaral Lymphocytes/100 WBC (Bld) 28.8 % Normal 20.5-60.0 [facility] Comment on above: Performed By: #### N BOX #### [facility] [address] [place] [address] Dr. Narciso Amaral MANUAL DIFF REQ NO Normal [facility] Comment on above: Performed By: #### N BOX #### [facility] [address] [place] [address] Dr. Narciso Amaral MCH (RBC) [Entitic mass] 31.6 pg Normal 26.7-34.0 [facility] Comment on above: Performed By: #### N BOX #### [facility] [address] [place] [address] Dr. Narciso Amaral MCHC (RBC) [Mass/Vol] 35.0 g/dL Normal 29.9-35.2 [facility] Comment on above: Performed By: #### N BOX #### [facility] [address] [place] [address] Dr. Narciso Amaral MCV (RBC) [Entitic vol] 90.4 fL Normal 81.0-99.0 [facility] Comment on above: Performed By: #### N BOX #### [facility] [address] [place] [address] Dr. Narciso Amaral MONO # 0.3 103/ul Normal 0.3-0.8 [facility] Comment on above: Performed By: #### N BOX #### [facility] [address] [place] [address] Dr. Narciso Amaral Monocytes/100 WBC (Bld) 4.6 % Normal 1.7-12.0 [facility] Comment on above: Performed By: #### N BOX #### [facility] [address] [place] [address] Dr. Narciso Amaral NEUT # 4.7 103/ul Normal 1.4-6.5 [facility] Comment on above: Performed By: #### N BOX #### [facility] [address] [place] [address] Dr. Narciso Amaral Neutrophils/100 WBC (Bld) 65.9 % Normal 43.0-75.0 [facility] Comment on above: Performed By: #### N BOX #### [facility] [address] [place] [address] Dr. Narciso Amaral Platelet mean volume (Bld) [Entitic vol] 9.7 fL Normal 9.5-13.5 [facility] Comment on above: Performed By: #### N BOX #### [facility] [address] [place] [address] Dr. Narciso Amaral PLT 199 103/ul Normal 150-450 [facility] Comment on above: Performed By: #### N BOX #### [facility] [address] [place] [address] Dr. Narciso Amaral RBC 4.71 106/ul Normal 4.20-5.40 [facility] Comment on above: Performed By: #### N BOX #### [facility] [address] [place] [address] Dr. Narcios Amaral WBC 7.1 103/ul Normal 4.0-11.0 [facility] Comment on above: Performed By: #### N BOX #### [facility] [address] [place] [address] Dr. Narciso WILL URINE PROFILEon 2 Bilirubin Ql (U) Negative Normal NEGATIVE [facility] Comment on above: Performed By: #### E RUR #### [facility] [address] [place] [address] Dr. Narciso Amaral Clarity (U) SL CLOUDY Abnormal CLEAR [facility] Comment on above: Performed By: #### E RUR #### [facility] [address] [place] [address] Dr. Narciso Amaral Color (U) YELLOW Normal YELLOW [facility] Comment on above: Performed By: #### E RUR #### [facility] [address] [place] [address] Dr. Narciso MCCLELLAN A micrscopic examination will be performed if indicated. Normal [facility] Comment on above: Performed By: #### E RUR #### [facility] [address] [place] [address] Dr. Narciso Amaral Glucose Ql (U) Negative Normal NEGATIVE [facility] Comment on above: Performed By: #### E RUR #### [facility] [address] [place] [address] Dr. Narciso Amaral Hemoglobin Ql (U) Negative Normal NEGATIVE [facility] Comment on above: Performed By: #### E RUR #### [facility] [address] [place] [address] Dr. Narciso Amaral Ketones Ql (U) >=80 Abnormal NEGATIVE [facility] Comment on above: Performed By: #### E RUR #### [facility] [address] [place] [address] Dr. Narciso Amaral LEUKOCYTES Negative Normal NEGATIVE [facility] Comment on above: Performed By: #### E RUR #### [facility] [address] [place] [address] Dr. Narciso Amaral Nitrite Ql (U) Negative Normal NEGATIVE [facility] Comment on above: Performed By: #### E RUR #### [facility] [address] [place] [address] Dr. Narciso Amaral pH (U) 6.0 [pH] Normal 5-9 [facility] Comment on above: Performed By: #### E RUR #### [facility] [address] [place] [address] Dr. Narciso Amaral SPEC GRAVITY >=1.030 Abnormal 1.005-<=1.025 [facility] Comment on above: Performed By: #### E RUR #### [facility] [address] [place] [address] Dr. Narciso Amaral UA PROTEIN TRACE Normal NEGATIVE/ TRACE [facility] Comment on above: Performed By: #### E RUR #### [facility] [address] [place] [address] Dr. Narciso Amaral UR MICRO IND NOT INDICATED Normal [facility] Comment on above: Performed By: #### E RUR #### [facility] [address] [place] [address] Dr. Narciso Amaral Urobilinogen Qn (U) 1.0 {Maggy'U}/dL Normal 0.2 - 1. 0 [facility] Comment on above: Performed By: #### E RUR #### [facility] [address] [place] [address] Dr. Narciso Amaral PROF 14(COMP METB)on 022 Albumin [Mass/Vol] 4.6 g/dL Normal 3.5-5.0 [facility] Comment on above: Performed By: #### C BC #### [facility] [address] [place] [address] Dr. Narciso Amaral Albumin/Globulin [Mass ratio] 1.0 {ratio} Normal [facility] Comment on above: Performed By: #### C BC #### [facility] [address] [place] [address] Dr. Narciso Amaral ALP [Catalytic activity/Vol] 54 U/L Normal 38-126 [facility] Comment on above: Performed By: #### C BC #### [facility] [address] [address] [address] Narciso Amaral ALT [Catalytic activity/Vol] 12 U/L Normal 9-52 [facility] Comment on above: Performed By: #### C BC #### [facility] [address] [place] [address] Dr. Narciso Amaral Anion gap [Moles/Vol] 14.8 mmol/L Normal [facility] Comment on above: Performed By: #### C BC #### [facility] [address] [place] [address] Dr. Narciso Amaral AST [Catalytic activity/Vol] 11 U/L Critically low 14-36 [facility] Comment on above: Performed By: #### C BC #### [facility] [address] [place] [address] Dr. Narciso Amaral Bilirubin [Mass/Vol] 0.9 mg/dL Normal 0.2-1.3 [facility] Comment on above: Performed By: #### C BC #### [facility] [address] [place] [address] Dr. Narciso Amaral Calcium [Mass/Vol] 9.6 mg/dL Normal 8.4-10.2 [facility] Comment on above: Performed By: #### C BC #### [facility] [address] [place] [address] Dr. Narciso Amaral Chloride [Moles/Vol] 98 mmol/L Normal 98-107 [facility] Comment on above: Performed By: #### C BC #### [facility] [address] [place] [address] Dr. Narciso Amaral CO2 [Moles/Vol] 27.3 mmol/L Normal 22.0-30.0 [facility] Comment on above: Performed By: #### C BC #### [facility] [address] [place] [address] Dr. Narciso Amaral Creatinine [Mass/Vol] 0.55 mg/dL Normal 0.52-1.04 [facility] Comment on above: Performed By: #### C BC #### [facility] [address] [place] [address] Dr. Narciso Amaral EGFR-AF FILIPINO >60 Normal >=60 [facility] Comment on above: Performed By: #### C BC #### [facility] [address] [place] [address] Dr. Narciso Amaral EGFR-NON AF FILIPINO >60 Normal >=60 [facility] Comment on above: Performed By: #### C BC #### [facility] [address] [address] [address] Narciso Amaral Globulin (S) [Mass/Vol] 4.7 g/dL Normal [facility] Comment on above: Performed By: #### C BC #### [facility] [address] [address] [address] Narciso Amaral Glucose [Mass/Vol] 87 mg/dL Normal 74-106 [facility] Comment on above: Performed By: #### C BC #### [facility] [address] [place] [address] Dr. Narciso Amaral Potassium [Moles/Vol] 3.1 mmol/L Critically low 3.4-5.0 [facility] Comment on above: Performed By: #### C BC #### [facility] [address] [place] [address] Dr. Narciso Amaral Protein [Mass/Vol] 9.3 g/dL Critically high 6.1-8.2 T [facility] Comment on above: Performed By: #### C BC #### [facility] [address] [place] [address] Dr. Narciso Amaral Sodium [Moles/Vol] 137 mmol/L Normal 137-145 [facility] Comment on above: Performed By: #### C BC #### [facility] [address] [address] [address] Narciso Amaral Urea nitrogen [Mass/Vol] 11.0 mg/dL Normal 7.0-17.0 [facility] Comment on above: Performed By: #### C BC #### [facility] [address] [place] [address] Dr. Narciso Amaral Urea nitrogen/Creatinine [Mass ratio] 20.0 mg/mg Normal [facility] Comment on above: Performed By: #### C BC #### [facility] [address] [address] [address] Narciso Amaral US PREG TVon 06-17-2021 [...] by: KRISTINA ESTRADA Date: 2021-06-17 17:29 Normal [facility] Vital Signs Date Time Vital Sign Value [...] Kemal Sharma [facility] 01-03-2023 20:48-0400 Heart rate 68 /min Kemal Sharma [facility] 01-03-2023 20:48-0400 Respiratory rate 18 /min Kemal Sharma [facility] 01-03-2023 20:48-0400 SaO2% (BldA) [Mass fraction] 99 % Kemal Zachary [facility] 01-03-2023 20:48-0400 Systolic blood pressure 110 mm[Hg] Kemal Zachary [facility] 01-03-2023 19:55-0400 Hourly Rounding Kemal Zachary [facility] 01-03-2023 19:53-0400 Diastolic blood pressure 71 mm[Hg] Kemal Zachary [facility] 01-03-2023 19:53-0400 Heart rate 70 /min Kemal Zachary [facility] 01-03-2023 19:53-0400 Respiratory rate 18 /min Kemal Zachary [facility] 01-03-2023 19:53-0400 SaO2% (BldA) [Mass fraction] 99 % Kemal Zachary [facility] 01-03-2023 19:53-0400 Systolic blood pressure 106 mm[Hg] Kemal Zachary [facility] 01-03-2023 18:55-0400 Diastolic blood pressure 74 mm[Hg] Kemal Zachary [facility] 01-03-2023 18:55-0400 Heart rate 74 /min Kemal Zachary [facility] 01-03-2023 18:55-0400 Hourly Rounding Kemal Zachary [facility] 01-03-2023 18:55-0400 Respiratory rate 16 /min Kemal Zachary [facility] 01-03-2023 18:55-0400 SaO2% (BldA) [Mass fraction] 99 % Kemal Zachary [facility] 01-03-2023 18:55-0400 Systolic blood pressure 108 mm[Hg] Kemal Zachary [facility] 01-03-2023 17:55-0400 Hourly Rounding Kemal Sharma [facility] 01-03-2023 17:55-0400 Promise to Return Kemal Zachary [facility] 01-03-2023 16:55-0400 Body temperature 98.06 [degF] Kemal Sharma [facility] 08-25-2021 20:06-0400 Body weight 51.[address] TONI WATKINS [facility] Comment on above: Performed By: #### CBC #### [facility] [address] [place] [address] Dr. Narciso Amaral Encounters Encounter Date Encounter Type Care Provider Facility Start: 05-31-2023 End: 05-31-2023 ambulatory LYDIA GALLO Not Available Start: 05-31-2023 End: 05-31-2023 flow sheet Lydia DOLAN Work Phone: [facility] Comment on above: Third trimester preg jordana Start: 05-06-2023 End: 05-06-2023 ambulatory TONI TRES Not Available Start: 04-28-2023 End: 04-29-2023 ambulatory LYDIA GALLO [facility] Start: 04-28-2023 End: 04-28-2023 Subsequent hospital visit by physician [facility] Start: 04-12-2023 End: 04-12-2023 ambulatory LYDIA GALLO Not Available Start: 03-08-2023 End: 03-08-2023 ambulatory TONI TRES Not Available Start: 01-03-2023 End: 01-03-2023 Emergency department patient visit Kemal Sharma Facility:[facility] Start: 01-03-2023 End: 01-03-2023 Emergency department patient visit Kemal Sharma [facility] Start: 01-21-[address] TONI WATKINS Facility [...] [facility] [address] [place] [address] Toni Watkins, [address] [place] [address] [facility] Start: 05-31-2023 End: 05-31-2023 Patient encounter procedure 05/31/2023 12:30 PM EST Routine [facility] [place] [facility] [address] [address] [facility] Start: 05-04-2023 End: 05-04-2023 Patient encounter procedure 05/04/2023 1:30 PM EST Routine [facility] [address] [facility] [address] [place] [address] [facility] Start: 11-24-2022 Influenza vaccination Flu vaccine (# 1) [facility] Start: 12-25-2021 Influenza vaccination Flu vaccine (# 1) [facility] Start: 2017 Screening for malign ant neoplasm of cervix Pap smear [facility] Start: 08-01-2015 DTaP/Tdap/Td vaccine (1 - Tdap) DTaP/Tdap/Td vaccine (1 - Tdap) [facility] Start: 2014 Hepatitis C screening Hepatitis C sc reen [facility] Start: 08-01-2011 HIV screening HIV screen [facility] Start: 2008 Depression Screen Depression Screen [facility] Start: 08-01-2007 HPV vaccine (1 - 2-d ose series) HPV vaccine (1 - 2-dose series) [facility] Start: 2001 COVID-19 Vaccine (1) COVID-19 Vaccin e (1) [facility] Start: 1997 Varicella vaccine (1 of 2 - 2-dose childhood series) Varicella vaccine (1 of 2 - 2-dose childhood series) [facility] Start: 01-30-1997 COVID-19 Vaccine (#1) COVID-19 Vacci ne (#1) [facility] Start: 1996 Hepatitis B vaccine (1 of 3 - 3-dose series) Hepatitis B vaccine (1 of 3 - 3-dose series) [facility] Payers Date Payer Category Payer Unknown 1996 Unknown [id number] 2.16.84 [id number] 1996 Unknown [id number] 2.16.84 0.1.222049.3.579.2.593 1996 Unknown [id number] 2.16.84 0.1.691621.3.579.2.593 1996 Unknown [id number] 2.16.84 0.1.272584.3.579.2.593 1996 Unknown [id number] 2.16.84 0.1.222911.3.579.2.593 1996 Unknown [id number] 2.16.84 0.1.702043.3.579.2.593 1996 Unknown [id number] 2.16.84 0.1.570974.3.579.2.593 1996 Unknown [id number] 2.16.84 0.1.109429.3.579.2.593 1996 Unknown [id number] 2.16.84 0.1.979284.3.579.2.593 1996 Unknown [id number] 2.16.84 0.1.264622.3.579.2.593 1996 Unknown [id number] 2.16.84 0.1.625067.3.579.2.593 1996 Unknown [id number] 2.16.84 0.1.729292.3.579.2.593 1996 Unknown [id number] 2.16.84 0.1.099352.3.579.2.593 1996 Unknown [id number] 2.16.84 0.1.845500.3.579.2.593 1996 Unknown [id number] 2.16.84 0.1.011936.3.579.2.593 1996 Unknown [id number] 2.16.84 0.1.898581.3.579.2.593 1996 Unknown [id number] 2.16.84 0.1.924290.3.579.2.593 1996 Unknown [id number] 2.16.8 40.1.695694.3.579.2.727 1996 Unknown [id number] 2.16.8 40.1.182298.3.579.2.174 1996 Unknown [id number] 2.16.84 0.1.012675.3.579.2.1259 1996 Unknown [id number] 2.16.84 0.1.059696.3.579.2.1259 1996 Unknown [id number] 2.16.840 .1.213151.3.579.2.1259 1996 Unknown [id number] 2.16.840. 1.801166.3.579.2.1259 1959 Self-pay [id number] 1959 Self-pay 1959 Unknown [id number] [id number] Unknown [id number] 2.16.84 0.1.530802.3.579.2.593 Social History Date Type Detail Facility Tobacco smoking status NHIS Tobacco smoking consumption unknown [employer] Work Phone: Start: 1995 Sex Assigned At Not on file [employer] Work Phone: Start: 04-05-2021 End: 04-07-2023 Tobacco smoking status Never smoked tobacco (finding) [facility] Tobacco smoking status Never [facility] Start: 04-20-2023 Sex Assigned At Female [facility] Start: 04-07-2023 Tobacco use and exposure Smokeless tobacco non-user [employer] Start: 04-20-2023 Alcohol intake Lifetime non-d jay (finding) [employer] Start: 04-20-2023 History of Social function [employer] Start: 11-12-2022 [facility] [employer] NEGATED: Highlighted rowStart: NINF History of tobacco use Passive smoker [employer] Functional Status Date Assessment Result Facility 01-03-2023 Functional Status N/A [facility] History of Present illness Narrative 05-31-2023 [...] and states received a steroid while in [place] for shortened cervix. Pt to have nst [...] instructions Patient Education 01/03/2023 20:50:05 Morning Sickness, Uolb-ie-Inlq Morning Sickness Morning sickness is when you [...] Follow these instructions at home: Medicines Take fguv-jch-ergbfzi and prescription medicines only as told by [...] provider. Document Revised: 11/25/2020 Document Reviewed: 11/04/2020 [employer] Patient Education 2022 [employer] Follow Up Care 01/03/2023 16:18:17 With:Toni WATKINS Address: [address] , [place] [address]- Business (1) When:01/06/2023 20:40:46 [facility] Evaluation + Plan note 01-03-2023 Note Date [...] discharged home with instructions to follow with [facility] and is to return to the ED with any new or worsening symptoms. Patient voices understanding is agreeable to plan [facility] Evaluation note Note Date & Type Note Facility Evaluation note Diagnosis Third trimester state, incidental documented in this encounter [facility] Hospital course Narrative Note Date & Type Note Facility Hospital course Narrative No data available for this section [facility] Progress note Note Date & Type Note Facility Progress note No data available for this section [facility] Summary Purpose Family History No Family History Records FoundNo Family History Records FoundNo Family History Records FoundNo Family History Records Found Advance Directives No Advanced Directives Records FoundNo Advanced Directives Records FoundNo Advanced Directives Records FoundNo Advanced Directives Records Found Additional Source Comments INFORMATION SOURCE (unrecogn ized section and content) DATE CREATED AUTHOR 01/21/2022 [facility] DATE CREATED AUTHOR AUTHOR'S ORGANIZ ATION 01/07/2023 [facility] DATE CREATED AUTHOR AUTHOR'S ORGANIZ ATION 04/29/2023 Nancy Rodriguez [facility] DATE CREATED AUTHOR AUTHOR'S ORGANIZ ATION 05/31/2023 [facility] [employer] Patient Care team informatio n (unrecognized section and content) Personnel Name: Gloria CASTELLANOS CNP Address: Address: [address] [place] [address] Dr. Blake, [facility] Reason for Visit (unrecogniz ed section [...] BE BASED ON THE PRIMARY CLINICAL RECORDS. [facility] [employer] [facility]. provides no warranty or guarantee of the accuracy or completeness of information in this document.
--- OUTSIDE RECORDS SUMMARY | 2023-06-21 07:27 | XMS_ITS | CCD ---
Author Name Unknown Address [address] [place] [address] Organization [facility] Care Team Providers Care Ore Grader Name Role Phone Unavailable Primary Care Provider [...] Amoxicillin; Translations: [amoxicillin] Drug Allergy 2 [facility] Repository (3 sources) Amoxicillin; Translations: [amoxicillin] Drug Allergy 3 rash [facility] [place] (1 source) Penicillins Propensity to adverse reactions to drug 3 Rash [facility] (2 sources) Penicillins Drug Allergy 3 [...] hours., # 16 tab(s), Refills(s) 1, [id number], 168, cm, 04/09/20 15:23:00 EST, Height/Length Dosing, 50.7, kg, 04/09/20 15:23:00 EST, Weight Dosing Start Date: 04/09/20 Status: Ordered Zofran ODT 4 mg Tab-Dis (1 source) Start: 06-09-2021 take 1 tablet by mouth every six hours as needed for nausea Zofran ODT 4 mg Tab-Dis 4 mg = 1 tab(s), Oral, q6hr, PRN Nausea/Vomiting, # 12 tab(s), Refills(s) 0, [facility]: [facility], 165.1, cm, 06/09/21 2:43:00 EST, Height/Length Dosing, [...] applicable or unspecified; Translations: [MAT CARE OTH NM FTL GRTH 3RD TM UNS] Onset: 12-31-2021 [...] Differentialon 04-28-2023 Basophils (Bld) [#/Vol] 0.03 10*3/uL [facility] Basophils/100 WBC (Bld) 1 % 0 - 2 % [facility] Eosinophils (Bld) [#/Vol] 0.04 10*3/uL [facility] Eosinophils/100 WBC (Bld) 1 % 0 - 5 % [facility] Erythrocyte distribution width (RBC) [Ratio] 11.8 % Low 12.1 - 15.2 % [facility] Hematocrit (Bld) [Volume fraction] 35.4 % Low 36.0 - 46.0 % [facility] Hemoglobin (Bld) [Mass/Vol] 11.9 g/dL Low 12.0 - 16.0 g/dL [facility] Immature granulocytes (Bld) [#/Vol] 0.04 10*3/uL [facility] Immature granulocytes/100 WBC (Bld) 1 % 0 - 5 % [facility] Interpretation and review of laboratory results Abnormal [facility] Lymphocytes/100 WBC (Bld) 24 % 15 - 40 % [facility] Lymphocytes/100 WBC (Bld) 1.53 % [facility] MCH (RBC) [Entitic mass] 32.9 pg 26.0 - 34.0 pg [facility] MCHC (RBC) [Mass/Vol] 33.6 g/dL 31.0 - 37.0 g/dL [facility] MCV (RBC) [Entitic vol] 97.8 fL 80.0 - 100.0 fL [facility] Monocytes/100 WBC (Bld) 6 % 4 - 8 % [facility] Monocytes/100 WBC (Bld) 0.41 % [facility] Neutrophils/100 WBC (Bld) 67 % 47 - 75 % [facility] Platelet mean volume (Bld) [Entitic vol] 9.5 fL 6.0 - 12.0 fL [facility] Platelets (Bld) [#/Vol] 155 10*3/uL [facility] RBC (Bld) [#/Vol] 3.62 10*6/uL Low 4.00 - 5.2 0 m/uL [facility] Segmented neutrophils/100 WBC (Bld) 4.37 % [facility] WBC other (Bld) [#/Vol] 6.4 [facility] CBC with Diffon 04-28-2023 Abs. Basophil 0.03 k/uL Normal 0.00-0.20 [facility] Comment on above: Performed By: #### C DP, GLUSC #### [facility] [address] [place] [address] Cell Efficiency Supervisor: Greg Castillo MD Abs.Imm.Granulocyte 0.04 k/uL Normal 0.00-0.30 [facility] Comment on above: Performed By: #### C DP, GLUSC #### [facility] [address] [place] [address] Cell Efficiency Supervisor: Greg Castillo MD Abs.Neutrophil (Seg) 4.37 k/uL Normal 2.5-7.0 [facility] Comment on above: Performed By: #### C DP, GLUSC #### [facility] [address] [place] [address] Cell Efficiency Supervisor: Greg Castillo MD Basophils/100 WBC (Bld) 1 % Normal 0-2 [facility] Comment on above: Performed By: #### C DP, GLUSC #### [facility] [address] [place] [address] Cell Efficiency Supervisor: Greg Castillo MD Eosinophils (Bld) [#/Vol] 0.04 10*3/uL Normal 0.00-0.40 [facility] Comment on above: Performed By: #### C DP, GLUSC #### [facility] [address] [place] [id number] Cell Efficiency Supervisor: Greg Castillo MD Eosinophils/100 WBC (Bld) 1 % Normal 0-5 [facility] Comment on above: Performed By: #### C DP, GLUSC #### [facility] [address] [place] [address] Cell Efficiency Supervisor: Greg Castillo MD Erythrocyte distribution width (RBC) [Ratio] 11.8 % Low 12.1-15.2 [facility] Comment on above: Performed By: #### C DP, GLUSC #### [facility] [address] [place] [id number] Cell Efficiency Supervisor: Greg Castillo MD Hematocrit (Bld) [Volume fraction] 35.4 % Low 36.0-46.0 [facility] Comment on above: Performed By: #### C DP, GLUSC #### [facility] [address] [place] [address] Cell Efficiency Supervisor: Greg Castillo MD Hemoglobin (Bld) [Mass/Vol] 11.9 g/dL Low 12.0-16.0 [facility] Comment on above: Performed By: #### C DP, GLUSC #### [facility] [address] [place] [id number] Cell Efficiency Supervisor: Greg Castillo MD Immature granulocytes/100 WBC (Bld) 1 % Normal 0-5 [facility] Comment on above: Performed By: #### C DP, GLUSC #### [facility] [address] [place] [phone] Cell Efficiency Supervisor: Greg Castillo MD Lymphocytes (Bld) [#/Vol] 1.53 10*3/uL Normal 1.00-4.80 [facility] Comment on above: Performed By: #### C DP, GLUSC #### [facility] [address] [place] [address] Cell Efficiency Supervisor: Greg Castillo MD Lymphocytes/100 WBC (Bld) 24 % Normal 15-40 [facility] Comment on above: Performed By: #### C DP, GLUSC #### [facility] [address] [place] [id number] Cell Efficiency Supervisor: Greg Castillo MD MCH (RBC) [Entitic mass] 32.9 pg Normal 26.0-34.0 [facility] Comment on above: Performed By: #### C DP, GLUSC #### [facility] [address] [place] [address] Cell Efficiency Supervisor: Greg Castillo MD MCHC (RBC) [Mass/Vol] 33.6 g/dL Normal 31.0-37.0 [facility] Comment on above: Performed By: #### C DP, GLUSC #### [facility] [address] [place] [id number] Cell Efficiency Supervisor: Greg Castillo MD MCV (RBC) [Entitic vol] 97.8 fL Normal 80.0-100.0 [facility] Comment on above: Performed By: #### C DP, GLUSC #### [facility] [address] [place] [id number] Cell Efficiency Supervisor: Greg Castillo MD Monocytes (Bld) [#/Vol] 0.41 10*3/uL Normal 0.00-1.00 [facility] Comment on above: Performed By: #### C DP, GLUSC #### [facility] [address] [place] [id number] Cell Efficiency Supervisor: Greg Castillo MD Monocytes/100 WBC (Bld) 6 % Normal 4-8 [facility] Comment on above: Performed By: #### C DP, GLUSC #### [facility] [address] [place], [place] [phone] Cell Efficiency Supervisor: Greg Castillo MD Neutrophil (Seg) 67 % Normal 47-75 [facility] Comment on above: Performed By: #### C DP, GLUSC #### [facility] [address] [place], [place] [phone] Cell Efficiency Supervisor: Greg Castillo MD Platelet mean volume (Bld) [Entitic vol] 9.5 fL Normal 6.0-12.0 [facility] Comment on above: Performed By: #### C DP, GLUSC #### [facility] [address] [place] [address] Cell Efficiency Supervisor: Greg Castillo MD Platelets (Bld) [#/Vol] 155 10*3/uL Normal 140-450 [facility] Comment on above: Performed By: #### C DP, GLUSC #### [facility] [address] [place], [place] [phone] Cell Efficiency Supervisor: Greg Castillo MD RBC (Bld) [#/Vol] 3.62 10*6/uL Low 4.00-5.20 [facility] Comment on above: Performed By: #### C DP, GLUSC #### [facility] [address] [place], [place] [phone] ([phone] Cell Efficiency Supervisor: Greg Castillo MD WBC (Bld) [#/Vol] 6.4 10*3/uL Normal 3.5-11.0 [facility] Comment on above: Performed By: #### C DP, GLUSC #### [facility] [address] [place], [place] [phone] ([phone] Cell Efficiency Supervisor: Greg Castillo MD Glucose David Scr 50gon 2023 Glucose [Mass/Vol] 108 mg/dL Normal 70-135 [facility] Comment on above: Performed By: #### C DP, GLUSC #### [facility] [address] [facility] [address] Cell Efficiency Supervisor: Greg Castillo MD Glu Administered via Glucola [facility] Comment on above: Performed By: #### C DP, GLUSC #### [facility] [address] [place] [address] Cell Efficiency Supervisor: Greg Castillo MD Glucose tolerance, 1 houron 04-28-2023 GLU ADMN Glucola [facility] Glucose 1 Hr post 50 g glucose PO [Mass/Vol] 108 mg/dL 70 - 135 mg/dL [facility] Discharge Instructionson Discharge Instructions [id number]#1.00CD:127 Normal [facility] Auto Diffon 01-03-2023 Basophils/100 WBC (Bld) 0.5 % Normal 0.0-2.0 [facility] Comment on above: Order Comment: Order Added by Discern Expert. Performed By: #### 2 794903, [id number], [id number], [id number] #### [facility] [address] [place] [address] Basophils/Leukocytes Auto (Bld) [Pure # fraction] 0.0 E9/L Normal 0.0-0.2 [facility] Comment on above: Order Comment: Order Added by Discern Expert. Performed By: #### 2 798334, 7166706, [id number], [id number] #### [facility] [address] [place] [address] Eosinophils/100 WBC (Bld) 0.3 % Normal 0.0-8.0 [facility] Comment on above: Order Comment: Order Added by Discern Expert. Performed By: #### 2 841695, 9794787, 08326709, [id number] #### [facility] [address] [place] [address] Eosinophils/Leukocyte s Auto (Bld) [Pure # fraction] 0.0 E9/L Normal 0.0-0.5 [facility] Comment on above: Order Comment: Order Added by Discern Expert. Performed By: #### 2 638383, 5364905, [id number], 7147560 #### [facility] Laboratory [address] [place] [address] Lymphocytes/100 WBC (Bld) 29.1 % Normal 14.0-50.0 [facility] Comment on above: Order Comment: Order Added by Discern Expert. Performed By: #### 2 139526, 9640258, [id number], 8749940 #### [facility] Laboratory [address] [place] [address] Lymphocytes/Leukocyte s Auto (Bld) [Pure # fraction] 1.7 E9/L Normal 1.0-4.0 [facility] Comment on above: Order Comment: Order Added by Kya Expert. Performed By: #### 2 004678, 2438393, 84584508, 4937691 #### [facility] Laboratory [address] [place] [address] Monocytes/100 WBC (Bld) 5.1 % Normal 4.0-14.0 [facility] Comment on above: Order Comment: Order Added by Kya Expert. Performed By: #### 2 892797, 2550625, 87225319, 0446937 #### [facility] Laboratory [address] [place] [address] Monocytes/Leukocytes Auto (Bld) [Pure # fraction] 0.3 E9/L Normal 0.2-1.0 [facility] Comment on above: Order Comment: Order Added by Discern Expert. Performed By: #### 2 594264, 1017590, 56271264, 2523864 #### [facility] Laboratory [address] [place] [address] Neutrophils/100 WBC (Bld) 65.0 % Normal 36.0-75.0 [facility] Comment on above: Order Comment: Order Added by Kya Expert. Performed By: #### 2 407571, 4248366, 30607132, 5056496 #### [facility] Laboratory [address] [place] [address] Neutrophils/Leukocyte s Auto (Bld) [Pure # fraction] 3.8 E9/L Normal 2.0-7.5 [facility] Comment on above: Order Comment: Order Added by Discern Expert. Performed By: #### 2 054551, 1380654, 68180932, 6839764 #### [facility] [address] [place] [address] BMPon 01-03-2023 Creatinine [Mass/Vol] 0.5 mg/dL Normal 0.5-1.3 [facility] Comment on above: Performed By: #### 2 800331, 3572205, 75144652, 0879861 #### [facility] [address] [place] [address] Urea nitrogen [Mass/Vol] 8 mg/dL Normal 5-21 [facility] Comment on above: Performed By: #### 2 562341, 7245077, 64574760, 3678255 #### [facility] [address] [place] [address] Urea nitrogen/Creatinine [Mass ratio] 16 No Units Normal 10-20 [facility] Comment on above: Performed By: #### 2 985822, 0136920, 08228284, 0263652 #### [facility] [address] [place] [address] Anion gap [Moles/Vol] 7 mmol/L Normal 6-16 [facility] Comment on above: Performed By: #### 2 141294, 5548878, 64297410, 0906177 #### [facility] [address] [place] [address] Calcium [Mass/Vol] 9.3 mg/dL Normal 8.9-11.1 [facility] Comment on above: Performed By: #### 2 421531, 2187875, 90893112, 4092723 #### [facility] [address] [place] [address] Chloride [Moles/Vol] 105 mmol/L Normal 101-111 [facility] Comment on above: Performed By: #### 2 292297, 6780848, 96244047, 1074147 #### [facility] [address] [place] [address] CO2 [Moles/Vol] 24 mmol/L Normal 21-31 [facility] Comment on above: Performed By: #### 2 750827, 6315795, 81446770, 5401415 #### [facility] [address] [place] [address] Glucose [Mass/Vol] 108 mg/dL Normal 55-199 [facility] Comment on above: Result Comment: If t his glucose result represents a fasting glucose, interpretation should refer to the following reference range: 55-99 mg/dL Performed By: #### 2 813072, 8609944, 85633896, 7106937 #### [facility] [address] [place] [address] Potassium [Moles/Vol] 3.4 mmol/L Low 3.5-5.3 [facility] Comment on above: Performed By: #### 2 723293, 3802407, 09039161, 1245892 #### [facility] [address] [place] [address] Sodium [Moles/Vol] 133 mmol/L Low 135-145 [facility] Comment on above: Performed By: #### 2 846760, 3254856, 16867064, 6607357 #### [facility] [address] [place] [address] CBC w/ Auto Diffon 3 Erythrocyte distribution width (RBC) [Ratio] 12.5 % Normal 10.9-14.2 [facility] Comment on above: Performed By: #### 2 596580, 1812928, 21199170, 8433027 #### [facility] [address] [place] [address] Hematocrit (Bld) [Volume fraction] 39.8 % Normal 34.0-46.0 [facility] Comment on above: Performed By: #### 2 004668, 5261923, 71488013, 6298099 #### [facility] [address] [place] [address] Hemoglobin (Bld) [Mass/Vol] 14.2 g/dL Normal 12.0-16.0 [facility] Comment on above: Performed By: #### 2 395914, 1746842, 68704670, 2297948 #### [facility] [address] [place] [address] MCH (RBC) [Entitic mass] 31.7 pg Normal 27.0-34.0 [facility] Comment on above: Performed By: #### 2 720378, 2362496, 12972138, 7667682 #### [facility] [address] [place] [address] MCHC (RBC) [Mass/Vol] 35.6 g/dL Normal 31.4-36.0 [facility] Comment on above: Performed By: #### 2 149805, 9084169, 54091277, 0351671 #### [facility] Laboratory [address] [place] [address] MCV (RBC) [Entitic vol] 89.0 fL Normal 80.0-100.0 [facility] Comment on above: Performed By: #### 2 624706, 4542846, 40562857, 5213686 #### [facility] Laboratory [address] [place] [address] Platelet mean volume (Bld) [Entitic vol] 7.6 fL Normal 6.4-10.8 [facility] Comment on above: Performed By: #### 2 112705, 7975917, 81291215, 4420086 #### [facility] [address] [place] [address] Platelets (Bld) [#/Vol] 170.0 E9/L Normal 150.0-500.0 [facility] Comment on above: Performed By: #### 2 905167, 5780437, 92660101, 7779268 #### [facility] Laboratory [address] [place] [address] RBC (Bld) [#/Vol] 4.5 E12/L Normal 4.3-5.9 [facility] Comment on above: Performed By: #### 2 649268, 0485764, 03584305, 7707977 #### [facility] [address] [place] [address] WBC corrected for nucl RBC Auto (Bld) [#/Vol] 5.8 E9/L Normal 4.0-11.0 [facility] Comment on above: Performed By: #### 2 193022, 5739547, 55315236, 1946849 #### [facility] [address] [place] [address] CHEMISTRYOrdered By: SYSTEM SYSTEM on 01-03-2023 Anion gap [Moles/Vol] 7 mmol/L Normal 6 - 16 mEq/L [facility] Remisol Calcium [Mass/Vol] 9.3 mg/dL Normal 8.9 - 11. 1 mg/dL [facility]isol Chloride [Moles/Vol] 105 mmol/L Normal 101 - 1 11 mmol/L [facility] CO2 [Moles/Vol] 24 mmol/L Normal 21 - 31 mmol/L [facility] Creatinine [Mass/Vol] 0.5 mg/dL Normal 0.5 - 1.3 mg/dL [facility] Remisol GFR/1.73 sq M.predicted among non-blacks MDRD (S/P/Bld) [Vol rate/Area] 133 mL/min/1.73 m2 Normal >=59mL/min/1. 73 m2 [facility] Chem S Glucose [Mass/Vol] 108 mg/dL Normal [...] Treatmenton 12-25 Consent for Treatment [id number] #1.00CD:127 Normal [facility] ED Clinical Summaryon 2022 ED Clinical Summary [address] [place] [address] ED Clinical Summary Person Information Name: GRACIELA [place]IVAREZ [place] Age: 27 Years : 1995 Sex: Female Language: Dominican PCP: Gloria CASTELLANOS CNP Marital Status: Visit [...] 01/03/2023 20:50:04 01/03/2023 20:50:04 01/03/2023 20:50:04 ADDRESS: [address] [place] [id number] [facility] DOC NOTES: MEDICAL INFORMATION: Prescriptions Given: Medications to Continue with No Changes Other Medications ondansetron (Zofran ODT 4 mg Tab-Dis) 1 Tablets By Mouth every 6 hours as needed Nausea/Vomiting. Refills: 0. valacyclovir (valacyclovir 1 g Tab) take 2 tab at first sign of cold sore repeat in 12 hours.. Refills: 1. PATIENT EDUCATION INFORMATION: Instructions: Morning Sickness, Ooza-bg-Ylmm Follow up: With: Address: When: Toni WATKINS [facility], [address] [place] [address] [place] [address] Business (1) In 3 days 01/06/2023 DIAGNOSIS: Nausea/vomiting in Normal [facility] ED Note-Physicianon 01-04-20 ED Note-Physician Basic Information [...] she is dehydrated. Patient is followed by [facility], Dr. Watkins, has had an ultrasound which [...] discharged home with instructions to follow with [facility] and is to return to the ED [...] Toni WATKINS In 3 days 01/06/2023 EDT [facility] [address] [facility] [place] [address] Business (1) Additional Instructions: Patient Education Morning Sickness, Vjmy-aq-Thgv Attestation Patient was treated and evaluated by the Physician Manager Engine. The attending physician was in the Emergency [...] is unknown (more content not included)... Normal [facility] Comment on above: Result Comment: Elec tronically [...] these instructions at home: Medicines ? Take ofmg-rgg-kxiobal and prescription medicines only as told by [...] Reviewed: 11/04/2020 Elsevier Patient Education ? 2022 [employer] Normal [facility] ED Patient Summaryon 023 ED Patient Summary [address] [place] [address] Patient Discharge Instructions Person Information Name: GRACIELA OLIVAREZ Age: 27 Years Arrival Date: 01/03/2023 16:15:39 Discharge Diagnosis: Nausea/vomiting in Primary Care Physician: Gloria CASTELLANOS CNP Provider Information Primary Provider: Kemal Sharma DO Advanced Clinical Education Consultant:Velia Correa PA-C The exam and treatment you received in the Emergency Department were for an urgent problem and are not intended as complete care. It is important that you follow up with a doctor, nurse practitioner, or physician?s assistant manager pt for ongoing care. If your symptoms become worse or you do not improve as expected and you are unable to reach your usual health care provider, you should return to the Emergency Department. We are available 24 hours a day. GRACIELA OLIVAREZ has been given the following list of patient education materials, prescriptions and follow-up instructions: Follow-up Instructions: With: Address: When: Toni WATKINS [facility], [address] [place] [address] [place] [address] Business (1) In 3 days 01/06/2023 In the event that this physician does not participate in your insurance network, please consult with your insurance company to find a nearby participating provider. Patient Education Materials: Morning Sickness, Obff-gn-Izgd A MESSAGE TO ALL PATIENTS REGARDING OPIOIDS PRESCRIPTION OPIOIDS: WHAT YOU NEED TO KNOW Prescription opioids can be used to help relieve qxnresut-pz-xmgvwx pain and are often prescribed following a [...] with addiction, tell your health career services officer and ask for guidance or call [facility] [employer] (more content not included)... Normal [facility] HEMATOLOGYOrdered By: SYSTEM SYSTEM on 01-03-2023 Basophils/100 [...] Comment on above: Performed By: #### 1 [id number] #### [facility] Laboratory [address] [place] [address] Clarity (U) CLEAR Normal Clear [facility] Comment on above: Performed By: #### 1 [id number] #### [facility] Laboratory [address] [place] [address] Color (U) YELLOW Normal Yellow [facility] Comment on above: Performed By: #### 1 [id number] #### [facility] Laboratory [address] [place] [address] Epithelial cells.squamous LM.HPF (Urine sed) [#/Area] 3-4 Normal 0-[address] [facility] Comment on above: Performed By: #### 1 [id number] #### [facility] [address] [place] [address] Glucose Test strip (U) [Mass/Vol] Negative Normal Negative [facility] Comment on above: Performed By: #### 1 [id number] #### [facility] [address] [place] [address] Hemoglobin Ql (U) 2+ Abnormal Negative [facility] Comment on above: Performed By: #### 1 [id number] #### [facility] [address] [place] [address] Ketones (U) [Mass/Vol] 2+ Abnormal Negative [facility] Comment on above: Performed By: #### 1 [id number] #### [facility] [address] [place] [address] [place].plasma/Lithiu m.RBC (Bld) [Mass ratio] 0-3 Normal 0-3 [facility] Comment on above: Performed By: #### 1 [id number] #### [facility] [address] [place] [address] Mucus Ql (Urine sed) 2+ Normal [facility] Comment on above: Performed By: #### 1 [id number] #### [facility] [address] [place] [address] Nitrite Ql (U) Negative Normal Negative [facility] Comment on above: Performed By: #### 1 [id number] #### [facility] [address] [place] [address] pH (U) 6.0 [pH] Invalid Interpretation Code 5.0-9.0 [facility] Comment on above: Performed By: #### 1 [id number] #### [facility] [address] [place] [address] Protein (U) [Mass/Vol] 1+ Abnormal Negative [facility] Comment on above: Performed By: #### 1 [id number] #### [facility] [address] [place] [address] Specific gravity (U) [Rel density] >=1.030 Invalid Interpretation Code 1.005-1.030 [facility] Comment on above: Performed By: #### 1 [id number] #### [facility] [address] [place] [address] Type of Urine collection method Clean Catch Normal [facility] Comment on above: Performed By: #### 1 [id number] #### [facility] [address] [place] [address] Urobilinogen Qn (U) 1.0 {Maggy'U}/dL Normal 0.0-1.0 [facility] Comment on above: Performed By: #### 1 [id number] #### [facility] [address] [place] [address] WBC Auto Ql (U) Negative Normal Negative [facility] Comment on above: Performed By: #### 1 [id number] #### [facility] [address] [place] [address] WBC LM.HPF (Urine sed) [#/Area] 0-5 Normal 0-5 [facility] Comment on above: Performed By: #### 1 [id number] #### [facility] [address] [place] [id number] URINALYSISOrdered By: Dianne Ortiz on 01-03-2023 Bilirubin [...] Interpretation Code Negative [facility] UA Auto SS [place].plasma/Lithiu m.RBC (Bld) [Mass ratio] 0-3 /HPF Normal [...] [facility] UA Auto SS Urobilinogen Qn (U) 1.6266509 {Maggy'U}/dL Normal 0.0 - 1.0 EU/dL [facility] UA Auto SS WBC Auto Ql (U) Negative (01/03/23 5:04 PM) Normal Negative [facility] UA Auto SS WBC LM.HPF (Urine sed) [#/Area] 0-5 /HPF Normal 0-5/HPF [facility] UA Auto SS eGFRon 01-03-2023 GFR/1.73 sq M.predicted among non-blacks MDRD (S/P/Bld) [Vol rate/Area] 133 mL/min/1.73 m2 Normal >=59 [facility] Comment on above: Order Comment: Order added by Discern Expert. Result Comment: Breakdown Person diya kidney disease could be indicated at eGFR's of less than 60 mL/min/1.73m2. Kidney failure is indicated at less than 15 mL/min/1.73m2. Performed By: #### 2 [id number], [id number] #### [facility] [address] [place] [address] CULTURE URINEon 01-10-2022 CULTURE URINE Culture Observations: MODERATE GROWTH OF MIXED GENITAL RIC. NO POTENTIAL PATHOGENS SEEN. Normal [facility] Comment on above: Performed By: #### U RCX #### [facility] [address] [place] [address] Dr. Narciso Amaral UA (CLEAN/CATCH) RESEARCH BIOLOGIST/MICRO I F IND.on 01-10-2022 Bilirubin Ql (U) Negative Normal NEGATIVE [facility] Comment on above: Performed By: #### U MICRO, UACSIND #### [facility] [address] [place] [address] Dr. Narciso Amaral Clarity (U) CLEAR Normal CLEAR [facility] Comment on above: Performed By: #### U MICRO, UACSIND #### [facility] [address] [place] [address] Dr. Narciso Amaral Color (U) LT. YELLOW Normal YELLOW [facility] Comment on above: Performed By: #### U MICRO, UACSIND #### [facility] [address] [place] [address] Dr. Narciso Amaral Glucose Ql (U) Negative Normal NEGATIVE [facility] Comment on above: Performed By: #### U MICRO, UACSIND #### [facility] [address] [place] [address] Dr. Narciso Amaral Hemoglobin Ql (U) LARGE Abnormal NEGATIVE [facility] Comment on above: Performed By: #### U MICRO, UACSIND #### [facility] [address] [place] [address] Dr. Narciso Amaral Ketones Ql (U) Negative Normal NEGATIVE [facility] Comment on above: Performed By: #### U MICRO, UACSIND #### [facility] [address] [place] [address] Dr. Narciso Amaral LEUKOCYTES TRACE Abnormal NEGATIVE [facility] Comment on above: Performed By: #### U MICRO, UACSIND #### [facility] [address] [address] [address] Narciso Amaral Nitrite Ql (U) Negative Normal NEGATIVE [facility] Comment on above: Performed By: #### U MICRO, UACSIND #### [facility] [address] [address] [address] Narciso Amaral pH (U) 6.0 [pH] Normal 5-9 [facility] Comment on above: Performed By: #### U MICRO, UACSIND #### [facility] [address] [address] [address] Narciso Amaral SPEC GRAVITY <=1.005 Abnormal 1.005-<=1.025 [facility] Comment on above: Performed By: #### U MICRO, UACSIND #### [facility] [address] [place] [address] Dr. Narciso Amaral UA PROTEIN Negative Normal NEGATIVE/ TRACE [facility] Comment on above: Performed By: #### U MICRO, UACSIND #### [facility] [address] [place] [address] Dr. Narciso Amaral UR MICRO IND INDICATED Normal [facility] Comment on above: Performed By: #### U MICRO, UACSIND #### [facility] [address] [address] [address] Narciso Amaral Urobilinogen Qn (U) 0.2 {Maggy'U}/dL Normal 0.2 - 1. 0 [facility] Comment on above: Performed By: #### U MICRO, UACSIND #### [facility] [address] [address] [address] Narciso Amaral URINE MICROSCOPIC ONLYon BACTERIA SMALL Abnormal NONE SEEN [facility] Comment on above: Performed By: #### U MICRO, UACSIND #### [facility] [address] [address] [address] Narciso Amaral Bacteria identified Cx Nom (U) INDICATED Normal [facility] Comment on above: Performed By: #### U MICRO, UACSIND #### [facility] [address] [place] [address] Dr. Narciso Amaral CAST NONE SEEN Normal NONE SEEN [facility] Comment on above: Performed By: #### U MICRO, UACSIND #### [facility] [address] [place] [address] Dr. Narciso Amaral Crystals LM Nom (Urine sed) NONE SEEN Normal NONE SEEN [facility] Comment on above: Performed By: #### U MICRO, UACSIND #### [facility] [address] [place] [address] Dr. Narciso Amaral Epithelial cells LM Ql (Urine sed) FEW Abnormal NONE SEEN /RARE [facility] Comment on above: Performed By: #### U MICRO, UACSIND #### [facility] [address] [place] [address] Dr. Narciso Amaral MUCOUS NONE SEEN Normal NONE SEEN [facility] Comment on above: Performed By: #### U MICRO, UACSIND #### [facility] [address] [place] [address] Dr. Narciso Amaral RBC 5-10 Abnormal 0-2 [facility] Comment on above: Performed By: #### U MICRO, UACSIND #### [facility] [address] [place] [address] Dr. Narciso Amaral WBC 0-2 Abnormal NONE SEEN [facility] Comment on above: Performed By: #### U MICRO, UACSIND #### [facility] [address] [place] [address] Dr. Narciso Amaral CBC AUTO DIFFon 01-09-2022 BASO # 0.0 103/ul Normal 0.0-0.1 [facility] Comment on above: Performed By: #### C BC #### [facility] [address] [place] [address] Dr. Narciso Amaral Basophils/100 WBC (Bld) 0.2 % Normal 0.2-2.0 [facility] Comment on above: Performed By: #### C BC #### [facility] [address] [place] [address] Dr. Narciso Amaral EO # 0.0 103/ul Normal 0.0-0.7 [facility] Comment on above: Performed By: #### C BC #### [facility] [address] [place] [address] Dr. Narciso Amaral Eosinophils/100 WBC (Bld) 0.1 % Critically low 0.9-7.0 [facility] Comment on above: Performed By: #### C BC #### [facility] [address] [place] [address] Dr. Narciso Amaral Erythrocyte distribution width (RBC) [Ratio] 12.8 % Normal 11.0-15.0 [facility] Comment on above: Performed By: #### C BC #### [facility] [address] [place] [address] Dr. Narciso Amaral Hematocrit (Bld) [Volume fraction] 30.8 % Critically low 36.0-48.0 [facility] Comment on above: Performed By: #### C BC #### [facility] [address] [place] [address] Dr. Narciso Amaral Hemoglobin (Bld) [Mass/Vol] 10.0 g/dL Critically low 12.0-16.0 [facility] Comment on above: Performed By: #### C BC #### [facility] [address] [place] [address] Dr. Narciso Amaral IG # 0.02 10e3/ul Normal 0.00-0.03 [facility] Comment on above: Performed By: #### C BC #### [facility] [address] [place] [address] Dr. Narciso Amaral IG % 0.2 % Normal 0.0-0.5 [facility] Comment on above: Performed By: #### C BC #### [facility] [address] [place] [address] Dr. Narciso Amaral LYMPH # 1.4 103/ul Normal 1.2-3.8 [facility] Comment on above: Performed By: #### C BC #### [facility] [address] [place] [address] Dr. Narciso Amaral Lymphocytes/100 WBC (Bld) 14.0 % Critically low 20.5-60.0 [facility] Comment on above: Performed By: #### C BC #### [facility] [address] [place] [address] Dr. Narciso Amaral MANUAL DIFF REQ NO Normal [facility] Comment on above: Performed By: #### C BC #### [facility] [address] [place] [address] Dr. Narciso Amaral MCH (RBC) [Entitic mass] 31.7 pg Normal 26.7-34.0 [facility] Comment on above: Performed By: #### C BC #### [facility] [address] [place] [address] Dr. Narciso Amaral MCHC (RBC) [Mass/Vol] 32.5 g/dL Normal 29.9-35.2 [facility] Comment on above: Performed By: #### C BC #### [facility] [address] [place] [address] Dr. Narciso Amaral MCV (RBC) [Entitic vol] 97.8 fL Normal 81.0-99.0 [facility] Comment on above: Performed By: #### C BC #### [facility] [address] [place] [address] Dr. Narciso Amaral MONO # 0.8 103/ul Normal 0.3-0.8 [facility] Comment on above: Performed By: #### C BC #### [facility] [address] [place] [address] Dr. Narciso Amaral Monocytes/100 WBC (Bld) 8.2 % Normal 1.7-12.0 [facility] Comment on above: Performed By: #### C BC #### [facility] [address] [place] [address] Dr. Narciso Amaral NEUT # 7.9 103/ul Critically high 1.4-6.5 [facility] Comment on above: Performed By: #### C BC #### [facility] [address] [place] [address] Dr. Narciso Amraal Neutrophils/100 WBC (Bld) 77.3 % Critically high 43.0-75.0 [facility] Comment on above: Performed By: #### C BC #### [facility] [address] [place] [address] Dr. Narciso Amaral Platelet mean volume (Bld) [Entitic vol] 9.9 fL Normal 9.5-13.5 [facility] Comment on above: Performed By: #### C BC #### [facility] [address] [place] [address] Dr. Narciso Amaral PLT 143 103/ul Critically low 150-450 [facility] Comment on above: Performed By: #### C BC #### [facility] [address] [place] [address] Dr. Narciso Amaral RBC 3.15 106/ul Critically low 4.20-5.40 [facility] Comment on above: Performed By: #### C BC #### [facility] [address] [place] [address] Dr. Narciso Amaral WBC 10.2 103/ul Normal 4.0-11.0 [facility] Comment on above: Performed By: #### C BC #### [facility] [address] [place] [address] Dr. Narciso Amaral CBC AUTO DIFFon 01-08-2022 BASO # 0.0 103/ul Normal 0.0-0.1 [facility] Comment on above: Performed By: #### C BC #### [facility] [address] [place] [address] Dr. Narciso Amaral Basophils/100 WBC (Bld) 0.3 % Normal 0.2-2.0 [facility] Comment on above: Performed By: #### C BC #### [facility] [address] [place] [address] Dr. Narciso Amaral EO # 0.0 103/ul Normal 0.0-0.7 [facility] Comment on above: Performed By: #### C BC #### [facility] [address] [place] [address] Dr. Narciso Amaral Eosinophils/100 WBC (Bld) 0.4 % Critically low 0.9-7.0 [facility] Comment on above: Performed By: #### C BC #### [facility] [address] [place] [address] Dr. Narciso Amaral Erythrocyte distribution width (RBC) [Ratio] 12.7 % Normal 11.0-15.0 [facility] Comment on above: Performed By: #### C BC #### [facility] [address] [place] [address] Dr. Narciso Amaral Hematocrit (Bld) [Volume fraction] 38.0 % Normal 36.0-48.0 [facility] Comment on above: Performed By: #### C BC #### [facility] [address] [place] [address] Dr. Narciso Amaral Hemoglobin (Bld) [Mass/Vol] 12.5 g/dL Normal 12.0-16.0 [facility] Comment on above: Performed By: #### C BC #### [facility] [address] [place] [address] Dr. Narciso Amaral IG # 0.03 10e3/ul Normal 0.00-0.03 [facility] Comment on above: Performed By: #### C BC #### [facility] [address] [place] [address] Dr. Narciso Amaral IG % 0.4 % Normal 0.0-0.5 [facility] Comment on above: Performed By: #### C BC #### [facility] [address] [place] [address] Dr. Narciso Amaral LYMPH # 1.3 103/ul Normal 1.2-3.8 [facility] Comment on above: Performed By: #### C BC #### [facility] [address] [place] [address] Dr. Narciso Amaral Lymphocytes/100 WBC (Bld) 17.6 % Critically low 20.5-60.0 [facility] Comment on above: Performed By: #### C BC #### [facility] [address] [place] [address] Dr. Narciso Amaral MANUAL DIFF REQ NO Normal [facility] Comment on above: Performed By: #### C BC #### [facility] [address] [place] [address] Dr. Narciso Amaral MCH (RBC) [Entitic mass] 31.6 pg Normal 26.7-34.0 [facility] Comment on above: Performed By: #### C BC #### [facility] [address] [place] [address] Dr. Narciso Amaral MCHC (RBC) [Mass/Vol] 32.9 g/dL Normal 29.9-35.2 [facility] Comment on above: Performed By: #### C BC #### [facility] [address] [place] [address] Dr. Narciso Amaral MCV (RBC) [Entitic vol] 96.0 fL Normal 81.0-99.0 [facility] Comment on above: Performed By: #### C BC #### [facility] [address] [place] [address] Dr. Narciso Amaral MONO # 0.5 103/ul Normal 0.3-0.8 [facility] Comment on above: Performed By: #### C BC #### [facility] [address] [place] [address] Dr. Narciso Amaral Monocytes/100 WBC (Bld) 6.2 % Normal 1.7-12.0 [facility] Comment on above: Performed By: #### C BC #### [facility] [address] [place] [address] Dr. Narciso Amaral NEUT # 5.5 103/ul Normal 1.4-6.5 [facility] Comment on above: Performed By: #### C BC #### [facility] [address] [place] [address] Dr. Narciso Amaral Neutrophils/100 WBC (Bld) 75.1 % Critically high 43.0-75.0 [facility] Comment on above: Performed By: #### C BC #### [facility] [address] [place] [address] Dr. Narciso Amaral Platelet mean volume (Bld) [Entitic vol] 10.3 fL Normal 9.5-13.5 [facility] Comment on above: Performed By: #### C BC #### [facility] [address] [address] [address] Nacriso Amaral PLT 159 103/ul Normal 150-450 [facility] Comment on above: Performed By: #### C BC #### [facility] [address] [place] [address] Dr. Narciso Amaral RBC 3.96 106/ul Critically low 4.20-5.40 [facility] Comment on above: Performed By: #### C BC #### [facility] [address] [place] [address] Dr. Narciso Amaral WBC 7.4 103/ul Normal 4.0-11.0 [facility] Comment on above: Performed By: #### C BC #### [facility] [address] [place] [address] Dr. Narciso Amaral Covid-19 PCR ([facility])on 12-25 SARS-CoV-2 (COVID-19) RNA MOHAN+probe Ql (Unsp spec) Not detected Normal NOT DETECTED [facility] Comment on above: Result Comment: When [...] for this test is supported by the [employer] of Health and Human Service's declaration that [...] used). Performed By: #### C VDTBH #### [facility] [address] [place] [address] Dr. Narciso Amaral DRUG SCREEN RAPID (URINE)on 01-08-2022 AMP Negative Normal NEGATIVE [facility] Comment on above: Performed By: #### C T/NGNA #### [facility] [address] [place] [address] Dr. Narciso Amaral BAR Negative Normal NEGATIVE [facility] Comment on above: Performed By: #### C T/NGNA #### [facility] [address] [place] [address] Dr. Narciso Amaral BUP Negative Normal NEGATIVE [facility] Comment on above: Performed By: #### C T/NGNA #### [facility] [address] [place] [address] Dr. Narciso Amaral BZO Negative Normal NEGATIVE [facility] Comment on above: Performed By: #### C T/NGNA #### [facility] [address] [place] [address] Dr. Narciso Amaral TREY Negative Normal NEGATIVE [facility] Comment on above: Performed By: #### C T/NGNA #### [facility] [address] [place] [address] Dr. Narciso Amaral CUT-OFFS SEE BELOW Normal [facility] Comment on above: Result Comment: AMP [...] ng/mL Performed By: #### C T/NGNA #### [facility] [address] [place] [address] Dr. Narciso Amaral DRUG CUT HEADER DRUG CLASS TEST SYSTEM CUT-OFF CONCENTRATIONS ARE FOLLOWS: Normal [facility] Comment on above: Performed By: #### C T/NGNA #### [facility] [address] [place] [address] Dr. Narciso Amaral mAMP Negative Normal NEGATIVE [facility] Comment on above: Performed By: #### C T/NGNA #### [facility] [address] [address] [address] Narciso Amaral MTD Negative Normal NEGATIVE [facility] Comment on above: Performed By: #### C T/NGNA #### [facility] [address] [place] [address] Dr. Narciso Amaral OPI Negative Normal NEGATIVE [facility] Comment on above: Performed By: #### C T/NGNA #### [facility] [address] [address] [address] Narciso Amaral OXY Negative Normal NEGATIVE [facility] Comment on above: Performed By: #### C T/NGNA #### [facility] [address] [place] [address] Dr. Narciso Amaral PCP Negative Normal NEGATIVE [facility] Comment on above: Performed By: #### C T/NGNA #### [facility] [address] [address] [address] Narciso Amaral PPX Negative Normal NEGATIVE [facility] Comment on above: Performed By: #### C T/NGNA #### [facility] [address] [address] [address] Narciso Amaral TCA Negative Normal NEGATIVE [facility] Comment on above: Performed By: #### C T/NGNA #### [facility] [address] [place] [address] Dr. Narciso Amaral THC Negative Normal NEGATIVE [facility] Comment on above: Performed By: #### C T/NGNA #### [facility] [address] [place] [address] Dr. Narciso Amaral TYPE AND SCREENon 01-08-2022 TYPE AND SCREEN Negative Normal [facility] Comment on above: Performed By: #### C T/NGNA #### [facility] [address] [place] [address] Dr. Narciso Amaral US PREG BIOPHY W [...] KRISTINA ESTRADA Date: 2022-01-07 16:20 Normal [facility] US PREG BIOPHY W NON STRESSo [...] KRISTINA ESTRADA Date: 2021-12-31 16:27 Normal [facility] VAGINITIS/VAGINOSIS DNA PROB Julius 12-26-2021 Fany species Negative Normal Negative [facility] Comment on above: Performed By: #### C BC #### [facility] [address] [address] [address] Narciso Amaral Gardnerella vaginalis Negative Normal Negative [facility] Comment on above: Performed By: #### C BC #### [facility] [address] [address] [address] Narciso Amaral Trichomonas vaginalis Negative Normal Negative [facility] Comment on above: Performed By: #### C BC #### [facility] [address] [address] [address] Narciso Amaral US PREG BIOPHY W [...] KRISTINA ESTRADA Date: 2021-12-25 09:13 Normal [facility] GROUP B STREP CULTUREon 11-26 S. agalactiae Ag Ql (Unsp spec) Culture Observations: NEGATIVE FOR GROUP B STREPTOCOCCUS. Normal [facility] Comment on above: Performed By: #### C Zoran/HAWA #### [facility] [address] [place] [address] Dr. Narciso Amaral US PREG GROWTHon 12-24-2021 US PREG GROWTH Ultrasound biophysical profile Ultrasound obstetrical, limited CLINICAL: Oligohydramnios follow-up. TECHNIQUE: Transabdominal obstetrical ultrasound was performed. Ultrasound biophysical profile was also performed by overlocker. FINDINGS: 09/29/2021. FETUS AND PLACENTA: There is [...] gestational age according to Hadlock criteria. Remarks: Public Safety Dispatcher reports that Dr. Watkins is aware of findings. Electronically authenticated by: AMPARO PATEL Date: 2021-12-24 12:27 [facility] Hematocrit (Bld) [Volume fraction] 35.7 % Low 36 - 46 % [facility] Hemoglobin (Bld) [Mass/Vol] 11.9 g/dL Low 12.0 - 16.0 g/dL [facility] Interpretation and review of laboratory results Abnormal [facility] MCH (RBC) [Entitic mass] 32.8 pg 26 - 34 pg [facility] MCHC (RBC) [Mass/Vol] 33.4 g/dL 31 - 37 g/dL B ON [facility] MCV (RBC) [Entitic vol] 98.1 fL 80 - 100 fL [facility] Platelet distribution width (Bld) [Ratio] 12.1 % 12.1 - 15.2 % [facility] Platelets (Bld) [#/Vol] 178 10*3/uL [facility] RBC (Bld) [#/Vol] 3.64 10*6/uL Low 4.0 - 5.2 m/uL [facility] WBC (Bld) [#/Vol] 7.6 10*3/uL [facility] Glucose tolerance, 1 houron 10-28-2021 GLU ADMN Glucola [facility] Glucose tolerance screen 50g 134 mg/dL 70 - 135 mg/dL [facility] US PREG INCOMPLETE ANATOMYon 09-29-2021 US PREG [...] GREG RODNEY Date: 2021-09-29 08:50 Normal [facility] US PREG ANATOMY SINGLEon US PREG [...] KRISTINA ESTRADA Date: 2021-09-01 16:26 Normal [facility] AFP MATERNAL FOR SPINA BIFID Aon 08-25-2021 AFP MoM 0.71 Normal [facility] Comment on above: Performed By: #### C BC #### [facility] [address] [address] [address] Narciso Amaral AFP Value 45.2 ng/mL Normal [facility] Comment on above: Performed By: #### C BC #### [facility] [address] [address] [address] Narciso Amaral AFP, Serum for Spina Bifida Report Normal [facility] Comment on above: Performed By: #### C BC #### [facility] [address] [address] [address] Narciso Amaral Comment Comment Normal [facility] Comment on above: Result Comment: Ky Magallon, Ph.D., [facility] Director . References: Available Upon Request. . Multiples Of Median Cutoffs For AFP Elevations Bernstein 2.5 Black 2.8 IDD 2.0 Twins 4.5 Abbreviation Definitions IDD - Insulin Dep Diabetes OSBR - Open Spina Bifida Risk . For further inquiries contact [employer] at [phone]. Performed By: #### C BC #### [facility] [address] [address] [address] Narciso Echevarria Age Collection Date 19.0 weeks [facility] Comment on above: Performed By: #### C BC #### [facility] [address] [address] [address] Narciso Amaral Gestat, Age Based on LMP Normal [facility] Comment on above: Result Comment: Reca lculations are not recommended when gestational dating by LMP and ultrasound are within 10 days. Performed By: #### C BC #### [facility] [address] [address] [address] Narciso Amaral Insulin Dep Diabetes No Normal [facility] Comment on above: Performed By: #### C BC #### [facility] [address] [place] [address] Dr. Narciso Amaral Interpretation Comment Normal [facility] Comment on above: Result Comment: Inte [...] Customer Services to discuss available options. The [employer] recommends amniocentesis be offered to women age 35 and older. Performed By: #### C BC #### [facility] [address] [address] [address] Narciso Amaral [age] Normal [facility] Comment on above: Performed By: #### C BC #### [facility] [address] [address] [address] Narciso Amaral Multiple Gestation No Normal [facility] Comment on above: Performed By: #### C BC #### [facility] [address] [address] [address] Narciso Amaral OS[place] 1 [place] [id number] Normal [facility] Comment on above: Performed By: #### C BC #### [facility] [address] [address] [address] Narciso Amaral PDF . [facility] Comment on above: Performed By: #### C BC #### [facility] [address] [address] [address] Narciso Amaral Race [facility] Comment on above: Performed By: #### C BC #### [facility] [address] [address] [address] Narciso Amaral Test Results: Negative [facility] Comment on above: Performed By: #### C BC #### [facility] [address] [address] [address] Narciso Amaral PAP ACOG PANEL 2: 21 to 29on 08-23-2021 . . [facility] Comment on above: Performed By: #### C BC #### [facility] [address] [place] [address] Dr. Narciso Amaral Age Gdln ACOG Testing - [facility] Comment on above: Performed By: #### C BC #### [facility] [address] [place] [address] Dr. Narciso Amaral DIAGNOSIS: Comment [facility] Comment on above: Result Comment: NEGA TIVE FOR INTRAEPITHELIAL LESION OR MALIGNANCY. Performed By: #### C BC #### [facility] [address] [place] [address] Dr. Narciso Amaral Methodology: Comment [facility] Comment on above: Result Comment: This liquid based ThinPrep(R) pap test was screened with the use of an image guided system. Performed By: #### C BC #### [facility] [address] [place] [address] Dr. Narciso Amaral Note: Comment [facility] Comment on above: Result Comment: The Pap smear is a screening test designed to aid in the detection of premalignant and malignant conditions of the uterine cervix. It is not a diagnostic procedure and should not be used as the sole means of detecting cervical cancer. Both false-positive and false-negative reports do occur. . Performed By: #### C BC #### [facility] [address] [place] [address] Dr. Narciso Amaral Performed by: Comment Normal [facility] Comment on above: Result Comment: [employer] Splitting Machine Feeder (ASCP) Performed By: #### C BC #### [facility] [address] [place] [address] Dr. Narciso Amaral Reflex Criteria: Comment Normal [facility] Comment on above: Result Comment: The HPV DNA reflex criteria were not met with this specimen result therefore, no HPV testing was performed. . Performed By: #### C BC #### [facility] [address] [place] [address] Dr. Narciso Amaral Specimen adequacy: Comment Normal [facility] Comment on above: Result Comment: Sati sfactory for evaluation. No endocervical component is identified. Performed By: #### C BC #### [facility] [address] [place] [address] Dr. Narciso Amaral CHLAMYDIA/GONOCOCCUS MOHAN (SW AB/URINE/PAPon 08-21-2021 Chlamydia trachomatis, MOHAN Negative Normal Negative [facility] Comment on above: Performed By: #### C T/NGNA #### [facility] [address] [place] [address] Dr. Narciso Amaral Neisseria gonorrhoeae, MOHAN Negative Normal Negative [facility] Comment on above: Performed By: #### C T/NGNA #### [facility] [address] [place] [address] Dr. Narciso Amaral HEP B SURFACE ANTIGEN SCREEN on 07-04-2021 HBsAg Screen Negative Normal Negative [facility] Comment on above: Performed By: #### N BOX #### [facility] [address] [place] [address] Dr. Narciso Amaral HEPATITIS C VIRUS AB W/ REFL EX QUANTon 07-04-2021 HCV AB <0.1 Normal 0.0-0.9 [facility] Comment on above: Performed By: #### C BC #### [facility] [address] [place] [address] Dr. Narciso Amaral Interpretation: Comment Normal [facility] Comment on above: Result Comment: Nega tive Not infected with HCV, unless recent infection is suspected or other evidence exists to indicate HCV infection. Performed By: #### C BC #### [facility] [address] [place] [address] Dr. Narciso Amaral HIV 1 AND 2 WITH REFLEXon HIV Screen 4th Generation wRfx Non-Reactive Normal Non Reactive [facility] Comment on above: Result Comment: HIV Negative HIV-1/HIV-2 antibodies and HIV-1 p24 antigen were NOT detected. There is no laboratory evidence of HIV infection. Performed By: #### N BOX #### [facility] [address] [place] [address] Dr. Narciso Amaral RPR QUANTon 07-04-2021 Rapid Plasma Reagin, Quant Non-Reactive Normal NonRea<1:1 [facility] Comment on above: Performed By: #### C BC #### [facility] [address] [place] [address] Dr. Narciso Amaral RUBELLA AB IGGon 07-04-2021 Rubella Antibodies, IgG <0.90 Critically low Immune >0.99 [facility] Comment on above: Result Comment: Non- immune <0.90 Equivocal 0.90 - 0.99 Immune >0.99 Performed By: #### R UBIGG #### [facility] [address] [place] [address] Dr. Narciso Aamral CBC AUTO DIFFon 07-03-2021 BASO # 0.0 103/ul Normal 0.0-0.1 [facility] Comment on above: Performed By: #### C BC #### [facility] [address] [place] [address] Dr. Narciso Amaral Basophils/100 WBC (Bld) 0.4 % Normal 0.2-2.0 [facility] Comment on above: Performed By: #### C BC #### [facility] [address] [place] [address] Dr. Narciso Amaral EO # 0.0 103/ul Normal 0.0-0.7 [facility] Comment on above: Performed By: #### C BC #### [facility] [address] [place] [address] Dr. Narciso Amaral Eosinophils/100 WBC (Bld) 0.4 % Critically low 0.9-7.0 [facility] Comment on above: Performed By: #### C BC #### [facility] [address] [place] [address] Dr. Narciso Amaral Erythrocyte distribution width (RBC) [Ratio] 11.9 % Normal 11.0-15.0 [facility] Comment on above: Performed By: #### C BC #### [facility] [address] [place] [address] Dr. Narciso Amaral Hematocrit (Bld) [Volume fraction] 33.0 % Critically low 36.0-48.0 [facility] Comment on above: Performed By: #### C BC #### [facility] [address] [place] [address] Dr. Narciso Amaral Hemoglobin (Bld) [Mass/Vol] 11.3 g/dL Critically low 12.0-16.0 [facility] Comment on above: Performed By: #### C BC #### [facility] [address] [place] [address] Dr. Narciso Amaral IG # 0.01 10e3/ul Normal 0.00-0.03 [facility] Comment on above: Performed By: #### C BC #### [facility] [address] [place] [address] Dr. Narciso Amaral IG % 0.2 % Normal 0.0-0.5 [facility] Comment on above: Performed By: #### C BC #### [facility] [address] [place] [address] Dr. Narciso Amaral LYMPH # 1.9 103/ul Normal 1.2-3.8 [facility] Comment on above: Performed By: #### C BC #### [facility] [address] [place] [address] Dr. Narciso Amaral Lymphocytes/100 WBC (Bld) 35.9 % Normal 20.5-60.0 [facility] Comment on above: Performed By: #### C BC #### [facility] [address] [place] [address] Dr. Narciso Amaral MANUAL DIFF REQ NO Normal [facility] Comment on above: Performed By: #### C BC #### [facility] [address] [place] [address] Dr. Narciso Amaral MCH (RBC) [Entitic mass] 31.6 pg Normal 26.7-34.0 [facility] Comment on above: Performed By: #### C BC #### [facility] [address] [place] [address] Dr. Narciso Amaral MCHC (RBC) [Mass/Vol] 34.2 g/dL Normal 29.9-35.2 [facility] Comment on above: Performed By: #### C BC #### [facility] [address] [place] [address] Dr. Narciso Amaral MCV (RBC) [Entitic vol] 92.2 fL Normal 81.0-99.0 [facility] Comment on above: Performed By: #### C BC #### [facility] [address] [place] [address] Dr. Narciso Amaral MONO # 0.2 103/ul Critically low 0.3-0.8 [facility] Comment on above: Performed By: #### C BC #### [facility] [address] [place] [address] Dr. Narciso Amaral Monocytes/100 WBC (Bld) 4.2 % Normal 1.7-12.0 [facility] Comment on above: Performed By: #### C BC #### [facility] [address] [place] [address] Dr. Narciso Amaral NEUT # 3.1 103/ul Normal 1.4-6.5 [facility] Comment on above: Performed By: #### C BC #### [facility] [address] [place] [address] Dr. Narciso Amaral Neutrophils/100 WBC (Bld) 58.9 % Normal 43.0-75.0 [facility] Comment on above: Performed By: #### C BC #### [facility] [address] [place], [place] [id number] Dr. Narciso Amaral Platelet mean volume (Bld) [Entitic vol] 10.4 fL Normal 9.5-13.5 [facility] Comment on above: Performed By: #### C BC #### [facility] [address] [place] [address] Dr. Narciso Amaral PLT 158 103/ul Normal 150-450 [facility] Comment on above: Performed By: #### C BC #### [facility] [address] [address] [address] Narciso Amaral RBC 3.58 106/ul Critically low 4.20-5.40 [facility] Comment on above: Performed By: #### C BC #### [facility] [address] [place] [address] Dr. Narciso Amaral WBC 5.2 103/ul Normal 4.0-11.0 [facility] Comment on above: Performed By: #### C BC #### [facility] [address] [place] [address] Dr. Narciso Amaral CULTURE URINEon 07-03-2021 CULTURE URINE Culture Observations: No growth Normal [facility] Comment on above: Performed By: #### U RCX #### [facility] [address] [place] [address] Dr. Narciso Amaral GLYCOHEMOGLOBIN A1Con 2021 ADA RECOMMENDATION ADA THERAPEUTIC TARGET 6.0 - 7.0 ACTION SUGGESTED > 7.0 Normal [facility] Comment on above: Performed By: #### N BOX #### [facility] [address] [place] [address] Dr. Narciso Amaral Glucose [Mass/Vol] 88 mg/dL Normal [facility] Comment on above: Performed By: #### N BOX #### [facility] [address] [place] [address] Dr. Narciso Amaral HbA1c (Bld) [Mass fraction] 4.7 % Normal <=6.0 [facility] Comment on above: Performed By: #### N BOX #### [facility] [address] [place] [address] Dr. Narciso Amaral BERNADINE BOX TEST PT SEND OUTo n 07-03-2021 SENT TO REF LAB 07/03/2021 Normal [facility] Comment on above: Performed By: #### N BOX #### [facility] [address] [place] [address] Dr. Narciso Amaral TYPE AND SCREENon 07-03-2021 TYPE AND SCREEN Negative Normal [facility] Comment on above: Performed By: #### C T/NGNA #### [facility] [address] [place] [address] Dr. Narciso Amaral CBC AUTO DIFFon 06-17-2021 BASO # 0.0 103/ul Normal 0.0-0.1 [facility] Comment on above: Performed By: #### N BOX #### [facility] [address] [place] [address] Dr. Narciso Amaral Basophils/100 WBC (Bld) 0.4 % Normal 0.2-2.0 [facility] Comment on above: Performed By: #### N BOX #### [facility] [address] [place] [address] Dr. Narciso Amaral EO # 0.0 103/ul Normal 0.0-0.7 [facility] Comment on above: Performed By: #### N BOX #### [facility] [address] [place] [address] Dr. Narciso Amaral Eosinophils/100 WBC (Bld) 0.0 % Critically low 0.9-7.0 [facility] Comment on above: Performed By: #### N BOX #### [facility] [address] [place] [address] Dr. Narciso Amaral Erythrocyte distribution width (RBC) [Ratio] 11.6 % Normal 11.0-15.0 [facility] Comment on above: Performed By: #### N BOX #### [facility] [address] [place] [address] Dr. Narciso Amaral Hematocrit (Bld) [Volume fraction] 42.6 % Normal 36.0-48.0 [facility] Comment on above: Performed By: #### N BOX #### [facility] [address] [place] [address] Dr. Narciso Amaral Hemoglobin (Bld) [Mass/Vol] 14.9 g/dL Normal 12.0-16.0 [facility] Comment on above: Performed By: #### N BOX #### [facility] [address] [place] [address] Dr. Narciso Amaral IG # 0.02 10e3/ul Normal 0.00-0.03 [facility] Comment on above: Performed By: #### N BOX #### [facility] [address] [place] [address] Dr. Narciso Amaral IG % 0.3 % Normal 0.0-0.5 [facility] Comment on above: Performed By: #### N BOX #### [facility] [address] [place] [address] Dr. Narciso Amaral LYMPH # 2.1 103/ul Normal 1.2-3.8 [facility] Comment on above: Performed By: #### N BOX #### [facility] [address] [place] [address] Dr. Narciso Amaral Lymphocytes/100 WBC (Bld) 28.8 % Normal 20.5-60.0 [facility] Comment on above: Performed By: #### N BOX #### [facility] [address] [place] [address] Dr. Narciso Amaral MANUAL DIFF REQ NO Normal [facility] Comment on above: Performed By: #### N BOX #### [facility] [address] [place] [address] Dr. Narciso Amaral MCH (RBC) [Entitic mass] 31.6 pg Normal 26.7-34.0 [facility] Comment on above: Performed By: #### N BOX #### [facility] [address] [place] [address] Dr. Narciso Amaral MCHC (RBC) [Mass/Vol] 35.0 g/dL Normal 29.9-35.2 [facility] Comment on above: Performed By: #### N BOX #### [facility] [address] [place] [address] Dr. Narciso Amaral MCV (RBC) [Entitic vol] 90.4 fL Normal 81.0-99.0 [facility] Comment on above: Performed By: #### N BOX #### [facility] [address] [place] [address] Dr. Narciso Amaral MONO # 0.3 103/ul Normal 0.3-0.8 [facility] Comment on above: Performed By: #### N BOX #### [facility] [address] [place] [address] Dr. Narciso Amaral Monocytes/100 WBC (Bld) 4.6 % Normal 1.7-12.0 [facility] Comment on above: Performed By: #### N BOX #### [facility] [address] [place] [address] Dr. Narciso Amaral NEUT # 4.7 103/ul Normal 1.4-6.5 [facility] Comment on above: Performed By: #### N BOX #### [facility] [address] [place] [address] Dr. Narciso Amaral Neutrophils/100 WBC (Bld) 65.9 % Normal 43.0-75.0 [facility] Comment on above: Performed By: #### N BOX #### [facility] [address] [place] [address] Dr. Narciso Amaral Platelet mean volume (Bld) [Entitic vol] 9.7 fL Normal 9.5-13.5 [facility] Comment on above: Performed By: #### N BOX #### [facility] [address] [place] [address] Dr. Narciso Amaral PLT 199 103/ul Normal 150-450 [facility] Comment on above: Performed By: #### N BOX #### [facility] [address] [place] [address] Dr. Narciso Amaral RBC 4.71 106/ul Normal 4.20-5.40 [facility] Comment on above: Performed By: #### N BOX #### [facility] [address] [place] [address] Dr. Narciso Amaral WBC 7.1 103/ul Normal 4.0-11.0 [facility] Comment on above: Performed By: #### N BOX #### [facility] [address] [place] [address] Dr. Narciso WILL URINE PROFILEon 2 Bilirubin Ql (U) Negative Normal NEGATIVE [facility] Comment on above: Performed By: #### E RUR #### [facility] [address] [place] [address] Dr. Narciso Amaral Clarity (U) SL CLOUDY Abnormal CLEAR [facility] Comment on above: Performed By: #### E RUR #### [facility] [address] [place] [address] Dr. Narciso Amaral Color (U) YELLOW Normal YELLOW [facility] Comment on above: Performed By: #### E RUR #### [facility] [address] [place] [address] Dr. Narciso MCCLELLAN A micrscopic examination will be performed if indicated. Normal [facility] Comment on above: Performed By: #### E RUR #### [facility] [address] [place] [address] Dr. Narciso Amaral Glucose Ql (U) Negative Normal NEGATIVE [facility] Comment on above: Performed By: #### E RUR #### [facility] [address] [place] [address] Dr. Narciso Amaral Hemoglobin Ql (U) Negative Normal NEGATIVE [facility] Comment on above: Performed By: #### E RUR #### [facility] [address] [place] [address] Dr. Narciso Amaral Ketones Ql (U) >=80 Abnormal NEGATIVE [facility] Comment on above: Performed By: #### E RUR #### [facility] [address] [place] [address] Dr. Narciso Amaral LEUKOCYTES Negative Normal NEGATIVE [facility] Comment on above: Performed By: #### E RUR #### [facility] [address] [place] [address] Dr. Narciso Amaral Nitrite Ql (U) Negative Normal NEGATIVE [facility] Comment on above: Performed By: #### E RUR #### [facility] [address] [place] [address] Dr. Narciso Amaral pH (U) 6.0 [pH] Normal 5-9 [facility] Comment on above: Performed By: #### E RUR #### [facility] [address] [place] [address] Dr. Narciso Amaral SPEC GRAVITY >=1.030 Abnormal 1.005-<=1.025 [facility] Comment on above: Performed By: #### E RUR #### [facility] [address] [place] [address] Dr. Narciso Amaral UA PROTEIN TRACE Normal NEGATIVE/ TRACE [facility] Comment on above: Performed By: #### E RUR #### [facility] [address] [place] [address] Dr. Narciso Amaral UR MICRO IND NOT INDICATED Normal [facility] Comment on above: Performed By: #### E RUR #### [facility] [address] [place] [address] Dr. Narciso Amaral Urobilinogen Qn (U) 1.0 {Maggy'U}/dL Normal 0.2 - 1. 0 [facility] Comment on above: Performed By: #### E RUR #### [facility] [address] [place] [address] Dr. Narciso Amaral PROF 14(COMP METB)on 022 Albumin [Mass/Vol] 4.6 g/dL Normal 3.5-5.0 [facility] Comment on above: Performed By: #### C BC #### [facility] [address] [place] [address] Dr. Narciso Amaral Albumin/Globulin [Mass ratio] 1.0 {ratio} Normal [facility] Comment on above: Performed By: #### C BC #### [facility] [address] [place] [address] Dr. Narciso Amaral ALP [Catalytic activity/Vol] 54 U/L Normal 38-126 [facility] Comment on above: Performed By: #### C BC #### [facility] [address] [address] [address] Narciso Amaral ALT [Catalytic activity/Vol] 12 U/L Normal 9-52 [facility] Comment on above: Performed By: #### C BC #### [facility] [address] [place] [address] Dr. Narciso Amaral Anion gap [Moles/Vol] 14.8 mmol/L Normal [facility] Comment on above: Performed By: #### C BC #### [facility] [address] [place] [address] Dr. Narciso Amaral AST [Catalytic activity/Vol] 11 U/L Critically low 14-36 [facility] Comment on above: Performed By: #### C BC #### [facility] [address] [place] [address] Dr. Narciso Amaral Bilirubin [Mass/Vol] 0.9 mg/dL Normal 0.2-1.3 [facility] Comment on above: Performed By: #### C BC #### [facility] [address] [place] [address] Dr. Narciso Amaral Calcium [Mass/Vol] 9.6 mg/dL Normal 8.4-10.2 [facility] Comment on above: Performed By: #### C BC #### [facility] [address] [place] [address] Dr. Narciso Amaral Chloride [Moles/Vol] 98 mmol/L Normal 98-107 [facility] Comment on above: Performed By: #### C BC #### [facility] [address] [place] [address] Dr. Narciso Amaral CO2 [Moles/Vol] 27.3 mmol/L Normal 22.0-30.0 [facility] Comment on above: Performed By: #### C BC #### [facility] [address] [place] [address] Dr. Narciso Amaral Creatinine [Mass/Vol] 0.55 mg/dL Normal 0.52-1.04 [facility] Comment on above: Performed By: #### C BC #### [facility] [address] [place] [address] Dr. Narciso Amaral EGFR-AF BRUNEIAN >60 Normal >=60 [facility] Comment on above: Performed By: #### C BC #### [facility] [address] [place] [address] Dr. Narciso Amaral EGFR-NON AF BRUNEIAN >60 Normal >=60 [facility] Comment on above: Performed By: #### C BC #### [facility] [address] [address] [address] Narciso Amaral Globulin (S) [Mass/Vol] 4.7 g/dL Normal [facility] Comment on above: Performed By: #### C BC #### [facility] [address] [address] [address] Narciso Amaral Glucose [Mass/Vol] 87 mg/dL Normal 74-106 [facility] Comment on above: Performed By: #### C BC #### [facility] [address] [place] [address] Dr. Narciso Amaral Potassium [Moles/Vol] 3.1 mmol/L Critically low 3.4-5.0 [facility] Comment on above: Performed By: #### C BC #### [facility] [address] [place] [address] Dr. Narciso Amaral Protein [Mass/Vol] 9.3 g/dL Critically high 6.1-8.2 T [facility] Comment on above: Performed By: #### C BC #### [facility] [address] [place] [address] Dr. Narciso Amaral Sodium [Moles/Vol] 137 mmol/L Normal 137-145 [facility] Comment on above: Performed By: #### C BC #### [facility] [address] [address] [address] Narciso Amaral Urea nitrogen [Mass/Vol] 11.0 mg/dL Normal 7.0-17.0 [facility] Comment on above: Performed By: #### C BC #### [facility] [address] [place] [address] Dr. Narciso Amaral Urea nitrogen/Creatinine [Mass ratio] 20.0 mg/mg Normal [facility] Comment on above: Performed By: #### C BC #### [facility] [address] [address] [address] Narciso Amaral US PREG TVon 06-17-2021 [...] KRISTINA ESTRADA Date: 2021-06-17 17:29 Normal [facility] Vital Signs Date Time Vital Sign Value Performing Clinician Facility 05-31-2023 08:51-0500 Body mass index (BMI) [Ratio] 22.85 kg/m2 Lydia DOLAN Work Phone: [facility] 05-31-2023 08:51-0500 Body weight 60.38 kg Lydia DOLAN Work Phone: [facility] 05-31-2023 08:51-0500 Diastolic blood pressure 66 mm[Hg] Lydia DOLAN Work Phone: [facility] 05-31-2023 08:51-0500 Systolic blood pressure 102 mm[Hg] Lydia DOLAN Work Phone: [facility] 01-03-2023 20:48-0400 Diastolic blood pressure 66 mm[Hg] Kemal Sharma [facility] 01-03-2023 20:48-0400 Heart rate 68 /min Kemal Sharma [facility] 01-03-2023 20:48-0400 Respiratory rate 18 /min Kemal Sharma [facility] 01-03-2023 20:48-0400 SaO2% (BldA) [Mass fraction] 99 % Kemal Zachary [facility] 01-03-2023 20:48-0400 Systolic blood pressure 110 mm[Hg] Kemal Zachary [facility] 01-03-2023 19:55-0400 Hourly Rounding Kemal Zachary [facility] 01-03-2023 19:53-0400 Diastolic blood pressure 71 mm[Hg] Kemal Zachary [facility] 01-03-2023 19:53-0400 Heart rate 70 /min Kemal Zachary [facility] 01-03-2023 19:53-0400 Respiratory rate 18 /min Kemal Zachary [facility] 01-03-2023 19:53-0400 SaO2% (BldA) [Mass fraction] 99 % Kemal Zachary [facility] 01-03-2023 19:53-0400 Systolic blood pressure 106 mm[Hg] Kemal Zachary [facility] 01-03-2023 18:55-0400 Diastolic blood pressure 74 mm[Hg] Kemal Zachary [facility] 01-03-2023 18:55-0400 Heart rate 74 /min Kemal Zachary [facility] 01-03-2023 18:55-0400 Hourly Rounding Kemal Zachary [facility] 01-03-2023 18:55-0400 Respiratory rate 16 /min Kemal Zachary [facility] 01-03-2023 18:55-0400 SaO2% (BldA) [Mass fraction] 99 % Kemal Zachary [facility] 01-03-2023 18:55-0400 Systolic blood pressure 108 mm[Hg] Kemal Zachary [facility] 01-03-2023 17:55-0400 Hourly Rounding Kemal Sharma [facility] 01-03-2023 17:55-0400 Promise to Return Kemal Zachary [facility] 01-03-2023 16:55-0400 Body temperature 98.06 [degF] Kemal Sharma [facility] 08-25-2021 20:06-0400 Body weight 51.[address] TONI WATKINS [facility] Comment on above: Performed By: #### CBC #### [facility] [address] [place] [address] Dr. Narciso Amaral Encounters Encounter Date Encounter Type Care Provider Facility Start: 05-31-2023 End: 05-31-2023 ambulatory LYDIA GALLO Not Available Start: 05-31-2023 End: 05-31-2023 flow sheet Lydia DLOAN Work Phone: [facility] Comment on above: Third trimester preg jordana Start: 05-06-2023 End: 05-06-2023 ambulatory TONI TRES Not Available Start: 04-28-2023 End: 04-29-2023 ambulatory LYDIA GALLO [facility] Start: 04-28-2023 End: 04-28-2023 Subsequent hospital visit by physician [facility] Start: 04-12-2023 End: 04-12-2023 ambulatory LYDIA GALLO Not Available Start: 03-08-2023 End: 03-08-2023 ambulatory TONI TRES Not Available Start: 01-03-2023 End: 01-03-2023 Emergency department patient visit Kemal Sharma [facility] Start: 01-03-2023 End: 01-03-2023 Emergency department patient visit Kemal Sharma [facility] Start: 01-21-[address] TONI WATKINS [...] [facility] [address] [place] [address] Toni Watkins, [address] [place] [address] [facility] Start: 05-31-2023 End: 05-31-2023 Patient encounter procedure 05/31/2023 12:30 PM EST Routine [facility] [place] [address] [address] [facility] Start: 05-04-2023 End: 05-04-2023 Patient encounter procedure 05/04/2023 1:30 PM EST Routine [facility] [address] [facility] [address] [place] [address] [facility] Start: 11-24-2022 Influenza vaccination Flu vaccine (# 1) [facility] Start: 12-25-2021 Influenza vaccination Flu vaccine (# 1) [facility] Start: 2017 Screening for malign ant neoplasm of cervix Pap smear [facility] Start: 08-01-2015 DTaP/Tdap/Td vaccine (1 - Tdap) DTaP/Tdap/Td vaccine (1 - Tdap) [facility] Start: 2014 Hepatitis C screening Hepatitis C sc reen [facility] Start: 08-01-2011 HIV screening HIV screen [facility] Start: 2008 Depression Screen Depression Screen [facility] Start: 08-01-2007 HPV vaccine (1 - 2-d ose series) HPV vaccine (1 - 2-dose series) [facility] Start: 2001 COVID-19 Vaccine (1) COVID-19 Vaccin e (1) [facility] Start: 1997 Varicella vaccine (1 of 2 - 2-dose childhood series) Varicella vaccine (1 of 2 - 2-dose childhood series) [facility] Start: 01-30-1997 COVID-19 Vaccine (#1) COVID-19 Vacci ne (#1) [facility] Start: 1996 Hepatitis B vaccine (1 of 3 - 3-dose series) Hepatitis B vaccine (1 of 3 - 3-dose series) [facility] Payers Date Payer Category Payer Unknown 1996 Unknown [id number] 2.16.84 [id number] 1996 Unknown [id number] 2.16.84 0.1.195496.3.579.2.593 1996 Unknown [id number] 2.16.84 0.1.319800.3.579.2.593 1996 Unknown [id number] 2.16.84 0.1.819663.3.579.2.593 1996 Unknown [id number] 2.16.84 0.1.300542.3.579.2.593 1996 Unknown [id number] 2.16.84 0.1.343158.3.579.2.593 1996 Unknown [id number] 2.16.84 0.1.169248.3.579.2.593 1996 Unknown [id number] 2.16.84 0.1.972353.3.579.2.593 1996 Unknown [id number] 2.16.84 0.1.561992.3.579.2.593 1996 Unknown [id number] 2.16.84 0.1.633203.3.579.2.593 1996 Unknown [id number] 2.16.84 0.1.921800.3.579.2.593 1996 Unknown [id number] 2.16.84 0.1.409727.3.579.2.593 1996 Unknown [id number] 2.16.84 0.1.276066.3.579.2.593 1996 Unknown [id number] 2.16.84 0.1.651896.3.579.2.593 1996 Unknown [id number] 2.16.84 0.1.628168.3.579.2.593 1996 Unknown [id number] 2.16.84 0.1.527225.3.579.2.593 1996 Unknown [id number] 2.16.84 0.1.559793.3.579.2.593 1996 Unknown [id number] 2.16.8 40.1.203205.3.579.2.727 1996 Unknown [id number] 2.16.8 40.1.042434.3.579.2.174 1996 Unknown [id number] 2.16.84 0.1.348649.3.579.2.1259 1996 Unknown [id number] 2.16.84 0.1.510274.3.579.2.1259 1996 Unknown [id number] 2.16.840 .1.621611.3.579.2.1259 1996 Unknown [id number] 2.16.840. 1.099479.3.579.2.1259 1959 Self-pay [id number] 1959 Self-pay 1959 Unknown [id number] Unknown [id number] 2.16.84 0.1.445494.3.579.2.593 Social History Date Type Detail Facility Tobacco smoking status NHIS Tobacco smoking consumption unknown [employer] Work Phone: Start: 1996 Sex Assigned At Not on file [employer] Work Phone: Start: 04-05-2021 End: 04-07-2023 Tobacco smoking status Never smoked tobacco (finding) [facility] Tobacco smoking status Never [facility] Start: 04-20-2023 Sex Assigned At Female [facility] Start: 04-07-2023 Tobacco use and exposure Smokeless tobacco non-user [employer] Start: 04-20-2023 Alcohol intake Lifetime non-d jay (finding) [employer] Start: 04-20-2023 History of Social function [employer] Start: 11-12-2022 [facility] [employer] NEGATED: Highlighted rowStart: NINF History of tobacco use Passive smoker [employer] Functional Status Date Assessment Result Facility 01-03-2023 Functional Status N/A [facility] History of Present illness Narrative 05-31-2023 MAGDALENO [...] and states received a steroid while in [place] for shortened cervix. Pt to have nst [...] of: MAGDALENO Garsia documented in this encounter [facility] Hospital Discharge instructions 01-03-2023 Note Date & Type Note Facility 01-03-2023 Hospital Discharg e instructions Patient Education 01/03/2023 20:50:05 Morning Sickness, [id number] Morning Sickness Morning sickness is when you [...] Follow these instructions at home: Medicines Take oyhr-muo-dmtatrs and prescription medicines only as told by [...] provider. Document Revised: 11/25/2020 Document Reviewed: 11/04/2020 [employer] [facility] Patient Education 2022 [employer]. Follow Up Care 01/03/2023 16:18:17 With:Toni WATKINS Address: [address] , [place] [address]- Business (1) When:01/06/2023 20:40:46 [facility] Evaluation + Plan note 01-03-2023 Note [...] discharged home with instructions to follow with [facility] and is to return to the ED with any new or worsening symptoms. Patient voices understanding is agreeable to plan [facility] Evaluation note Note Date & Type Note Facility Evaluation note Diagnosis Third trimester state, incidental documented in this encounter [facility] course Narrative Note Date & Type Note Facility Hospital course Narrative No data available for this section [facility] Progress note Note Date & Type Note Facility Progress note No data available for this section [facility] Summary Purpose Family History No Family History Records FoundNo Family History Records FoundNo Family History Records FoundNo Family History Records Found Advance Directives No Advanced Directives Records FoundNo Advanced Directives Records FoundNo Advanced Directives Records FoundNo Advanced Directives Records Found Additional Source Comments INFORMATION SOURCE (unrecogn ized section and content) DATE CREATED AUTHOR 01/21/2022 [facility] DATE CREATED AUTHOR AUTHOR'S ORGANIZ ATION 01/07/2023 [facility] DATE CREATED AUTHOR AUTHOR'S ORGANIZ ATION 04/29/2023 Nancy Rodriguez [facility] DATE CREATED AUTHOR AUTHOR'S ORGANIZ ATION 05/31/2023 [facility] [employer] Patient Care team informatio n (unrecognized section and content) Personnel Name: Gloria CASTELLANOS CNP Address: Address: [address] [place] [address] Dr. Blake, [facility] Reason for Visit (unrecogniz ed [...] BE BASED ON THE PRIMARY CLINICAL RECORDS. [facility] [email or web address] [facility]. provides no warranty or guarantee of the accuracy or completeness of information in this document.
--- OUTSIDE RECORDS SUMMARY | 2023-06-24 07:03 | XMS_ITS | CCD ---
Author Name Unknown Address [address] [place] [address] Organization [facility] Care Team Providers Care [employer] Crewmember Name Role Phone Unavailable Primary Care Provider [...] Unavailab le TRES, DR MUÑOZ Consulting Unavailable TERS, DR MUÑOZ Attending Unavailable REQUEST, DR NONE [...] Amoxicillin; Translations: [amoxicillin] Drug Allergy 2 [facility] (3 sources) Amoxicillin; Translations: [amoxicillin] Drug Allergy 3 rash [facility] [place] (1 source) Penicillins Propensity to adverse reactions to drug 3 Rash [facility] (2 sources) Penicillins Drug Allergy 3 Rash, [...] hours., # 16 tab(s), Refills(s) 1, [id number], 168, cm, 04/09/20 15:23:00 EST, Height/Length Dosing, 50.7, kg, 04/09/20 15:23:00 EST, Weight Dosing Start Date: 04/09/20 Status: Ordered Zofran ODT 4 mg Tab-Dis (1 source) Start: 06-09-2021 take 1 tablet by mouth every six hours as needed for nausea Zofran ODT 4 mg Tab-Dis 4 mg = 1 tab(s), Oral, q6hr, PRN Nausea/Vomiting, # 12 tab(s), Refills(s) 0, Pharmacy: [facility], 165.1, cm, 06/09/21 2:43:00 EST, Height/Length Dosing, [...] applicable or unspecified; Translations: [MAT CARE OTH DE FTL GRTH 3RD TM UNS] Onset: 12-31-2021 [...] Differentialon 04-28-2023 Basophils (Bld) [#/Vol] 0.03 10*3/uL [facility] Basophils/100 WBC (Bld) 1 % 0 - 2 % [facility] Eosinophils (Bld) [#/Vol] 0.04 10*3/uL [facility] Eosinophils/100 WBC (Bld) 1 % 0 - 5 % [facility] Erythrocyte distribution width (RBC) [Ratio] 11.8 % Low 12.1 - 15.2 % [facility] Hematocrit (Bld) [Volume fraction] 35.4 % Low 36.0 - 46.0 % [facility] Hemoglobin (Bld) [Mass/Vol] 11.9 g/dL Low 12.0 - 16.0 g/dL [facility] Immature granulocytes (Bld) [#/Vol] 0.04 10*3/uL [facility] Immature granulocytes/100 WBC (Bld) 1 % 0 - 5 % [facility] Interpretation and review of laboratory results Abnormal [facility] Lymphocytes/100 WBC (Bld) 24 % 15 - 40 % [facility] Lymphocytes/100 WBC (Bld) 1.53 % [facility] MCH (RBC) [Entitic mass] 32.9 pg 26.0 - 34.0 pg [facility] MCHC (RBC) [Mass/Vol] 33.6 g/dL 31.0 - 37.0 g/dL [facility] MCV (RBC) [Entitic vol] 97.8 fL 80.0 - 100.0 fL [facility] Monocytes/100 WBC (Bld) 6 % 4 - 8 % [facility] Monocytes/100 WBC (Bld) 0.41 % [facility] Neutrophils/100 WBC (Bld) 67 % 47 - 75 % [facility] Platelet mean volume (Bld) [Entitic vol] 9.5 fL 6.0 - 12.0 fL [facility] Platelets (Bld) [#/Vol] 155 10*3/uL [facility] RBC (Bld) [#/Vol] 3.62 10*6/uL Low 4.00 - 5.2 0 m/uL [facility] Segmented neutrophils/100 WBC (Bld) 4.37 % [facility] WBC other (Bld) [#/Vol] 6.4 [facility] CBC with Diffon 04-28-2023 Abs. Basophil 0.03 k/uL Normal 0.00-0.20 [facility] Comment on above: Performed By: #### C DP, GLUSC #### [facility] [address] [place] [address] Curing Room Worker: Greg Castillo MD Abs.Imm.Granulocyte 0.04 k/uL Normal 0.00-0.30 [facility] Comment on above: Performed By: #### C DP, GLUSC #### [facility] [address] [place] [address] Curing Room Worker: Greg Castillo MD Abs.Neutrophil (Seg) 4.37 k/uL Normal 2.5-7.0 [facility] Comment on above: Performed By: #### C DP, GLUSC #### [facility] [address] [place] [address] Curing Room Worker: Greg Castillo MD Basophils/100 WBC (Bld) 1 % Normal 0-2 [facility] Comment on above: Performed By: #### C DP, GLUSC #### [facility] [address] [place] [address] Curing Room Worker: Greg Castillo MD Eosinophils (Bld) [#/Vol] 0.04 10*3/uL Normal 0.00-0.40 [facility] Comment on above: Performed By: #### C DP, GLUSC #### [facility] [address] [place] [id number] Curing Room Worker: Greg Castillo MD Eosinophils/100 WBC (Bld) 1 % Normal 0-5 [facility] Comment on above: Performed By: #### C DP, GLUSC #### [facility] [address] [place] [address] Curing Room Worker: Greg Castillo MD Erythrocyte distribution width (RBC) [Ratio] 11.8 % Low 12.1-15.2 [facility] Comment on above: Performed By: #### C DP, GLUSC #### [facility] [address] [place] [id number] Curing Room Worker: Greg Castillo MD Hematocrit (Bld) [Volume fraction] 35.4 % Low 36.0-46.0 [facility] Comment on above: Performed By: #### C DP, GLUSC #### [facility] [address] [place] [address] Curing Room Worker: Greg Castillo MD Hemoglobin (Bld) [Mass/Vol] 11.9 g/dL Low 12.0-16.0 [facility] Comment on above: Performed By: #### C DP, GLUSC #### [facility] [address] [place] [id number] Curing Room Worker: Greg Castillo MD Immature granulocytes/100 WBC (Bld) 1 % Normal 0-5 [facility] Comment on above: Performed By: #### C DP, GLUSC #### [facility] [address] [place] [id number] Curing Room Worker: Greg Castillo MD Lymphocytes (Bld) [#/Vol] 1.53 10*3/uL Normal 1.00-4.80 [facility] Comment on above: Performed By: #### C DP, GLUSC #### [facility] [address] [place] [address] Curing Room Worker: Greg Castillo MD Lymphocytes/100 WBC (Bld) 24 % Normal 15-40 [facility] Comment on above: Performed By: #### C DP, GLUSC #### [facility] [address] [place] [id number] Curing Room Worker: Greg Castillo MD MCH (RBC) [Entitic mass] 32.9 pg Normal 26.0-34.0 [facility] Comment on above: Performed By: #### C DP, GLUSC #### [facility] [address] [place] [address] Curing Room Worker: Greg Castillo MD MCHC (RBC) [Mass/Vol] 33.6 g/dL Normal 31.0-37.0 [facility] Comment on above: Performed By: #### C DP, GLUSC #### [facility] [address] [place] [id number] Curing Room Worker: Greg Castillo MD MCV (RBC) [Entitic vol] 97.8 fL Normal 80.0-100.0 [facility] Comment on above: Performed By: #### C DP, GLUSC #### [facility] [address] [place] [id number] Curing Room Worker: Greg Castillo MD Monocytes (Bld) [#/Vol] 0.41 10*3/uL Normal 0.00-1.00 [facility] Comment on above: Performed By: #### C DP, GLUSC #### [facility] [address] [place] [id number] Curing Room Worker: Greg Castillo MD Monocytes/100 WBC (Bld) 6 % Normal 4-8 [facility] Comment on above: Performed By: #### C DP, GLUSC #### [facility] [address] [place], [place] [phone] (340) Curing Room Worker: Greg Castillo MD Neutrophil (Seg) 67 % Normal 47-75 [facility] Comment on above: Performed By: #### C DP, GLUSC #### [facility] [address] [place], [place] [phone] (058) Curing Room Worker: Greg Castillo MD Platelet mean volume (Bld) [Entitic vol] 9.5 fL Normal 6.0-12.0 [facility] Comment on above: Performed By: #### C DP, GLUSC #### [facility] [address] [place] [address] Curing Room Worker: Greg Castillo MD Platelets (Bld) [#/Vol] 155 10*3/uL Normal 140-450 [facility] Comment on above: Performed By: #### C DP, GLUSC #### [facility] [address] [place], [place] [phone] (836) Curing Room Worker: Greg Castillo MD RBC (Bld) [#/Vol] 3.62 10*6/uL Low 4.00-5.20 [facility] Comment on above: Performed By: #### C DP, GLUSC #### [facility] [address] [place], [place] [id number] (638) Curing Room Worker: Greg Castillo MD WBC (Bld) [#/Vol] 6.4 10*3/uL Normal 3.5-11.0 [facility] Comment on above: Performed By: #### C DP, GLUSC #### [facility] [address] [place], [place] [phone] (122) Curing Room Worker: Greg Castillo MD Glucose David Scr 50gon 2023 Glucose [Mass/Vol] 108 mg/dL Normal 70-135 [facility] Comment on above: Performed By: #### C DP, GLUSC #### [facility] [address] [facility] [place] [address] Curing Room Worker: Greg Castillo MD Glu Administered via Glucola [facility] Comment on above: Performed By: #### C DP, GLUSC #### [facility] [address] [place] [address] Curing Room Worker: Greg Castillo MD Glucose tolerance, 1 houron 04-28-2023 GLU ADMN Glucola [facility] Glucose 1 Hr post 50 g glucose PO [Mass/Vol] 108 mg/dL 70 - 135 mg/dL [facility] Discharge Instructionson Discharge Instructions [id number]#1.00CD:[address] [facility] Auto Diffon 01-03-2023 Basophils/100 WBC (Bld) 0.5 % Normal 0.0-2.[address] [facility] Comment on above: Order Comment: Order Added by Discern Expert. Performed By: #### 2 128403, 2445180, [id number], [id number] #### [facility] [address] [place] [address] Basophils/Leukocytes Auto (Bld) [Pure # fraction] 0.0 E9/L Normal 0.0-0.[address] [facility] Comment on above: Order Comment: Order Added by Discern Expert. Performed By: #### 2 256017, 2184540, [id number], 9153115 #### [facility] [address] [place] [address] Eosinophils/100 WBC (Bld) 0.3 % Normal 0.0-8.[address] [facility] Comment on above: Order Comment: Order Added by Discern Expert. Performed By: #### 2 367874, 1048221, 65097573, 6963065 #### [facility] [address] [place] [address] Eosinophils/Leukocyte s Auto (Bld) [Pure # fraction] 0.0 E9/L Normal 0.0-0.[address] [facility] Comment on above: Order Comment: Order Added by Discern Expert. Performed By: #### 2 986987, 7192036, 59617633, 7661854 #### [facility] [address] [place] [address] Lymphocytes/100 WBC (Bld) 29.1 % Normal 14.0-50.[address] [facility] Comment on above: Order Comment: Order Added by Discern Expert. Performed By: #### 2 734632, 4733445, 77865539, 0625014 #### [facility] [address] [place] [address] Lymphocytes/Leukocyte s Auto (Bld) [Pure # fraction] 1.7 E9/L Normal 1.0-4.[address] [facility] Comment on above: Order Comment: Order Added by Kya Expert. Performed By: #### 2 856398, 6831341, 66629550, 9967241 #### [facility] [address] [place] [address] Monocytes/100 WBC (Bld) 5.1 % Normal 4.0-14.[address] [facility] Comment on above: Order Comment: Order Added by Kya Expert. Performed By: #### 2 677115, 0671297, 23513174, 4861975 #### [facility] [address] [place] [address] Monocytes/Leukocytes Auto (Bld) [Pure # fraction] 0.3 E9/L Normal 0.2-1.[address] [facility] Comment on above: Order Comment: Order Added by Discern Expert. Performed By: #### 2 937152, 9342869, 56445925, 3289062 #### [facility] [address] [place] [address] Neutrophils/100 WBC (Bld) 65.0 % Normal 36.0-75.[address] [facility] Comment on above: Order Comment: Order Added by Kya Expert. Performed By: #### 2 780714, 2415395, 64565066, 2742595 #### [facility] [address] [place] [address] Neutrophils/Leukocyte s Auto (Bld) [Pure # fraction] 3.8 E9/L Normal 2.0-7.[address] [facility] Comment on above: Order Comment: Order Added by Discern Expert. Performed By: #### 2 958476, 6656371, 18655283, 4983250 #### [facility] [address] [place] [address] BMPon 01-03-2023 Creatinine [Mass/Vol] 0.5 mg/dL Normal 0.5-1.3 [facility] Comment on above: Performed By: #### 2 784785, 7997730, 18559574, 5608400 #### [facility] [address] [place] [address] Urea nitrogen [Mass/Vol] 8 mg/dL Normal 5-[address] [facility] Comment on above: Performed By: #### 2 652814, 3292213, 81396092, 5138902 #### [facility] [address] [place] [address] Urea nitrogen/Creatinine [Mass ratio] 16 No Units Normal 10-[address] [facility] Comment on above: Performed By: #### 2 617859, 0884072, 77169677, 4415249 #### [facility] [address] [place] [address] Anion gap [Moles/Vol] 7 mmol/L Normal 6-16 [facility] Comment on above: Performed By: #### 2 424523, 1580921, 15456683, 8972120 #### [facility] [address] [place] [address] Calcium [Mass/Vol] 9.3 mg/dL Normal 8.9-11.[address] [facility] Comment on above: Performed By: #### 2 171792, 3783286, 93392888, 7990309 #### [facility] [address] [place] [address] Chloride [Moles/Vol] 105 mmol/L Normal 101-111 [facility] Comment on above: Performed By: #### 2 701035, 5105837, 24152285, 2375705 #### [facility] [address] [place] [address] CO2 [Moles/Vol] 24 mmol/L Normal 21-31 [facility] Comment on above: Performed By: #### 2 788750, 0040316, 47918460, 4750445 #### [facility] [address] [place] [address] Glucose [Mass/Vol] 108 mg/dL Normal 55-[address] [facility] Comment on above: Result Comment: If t his glucose result represents a fasting glucose, interpretation should refer to the following reference range: 55-99 mg/dL Performed By: #### 2 173273, 2780316, 04226390, 4366403 #### [facility] [address] [place] [address] Potassium [Moles/Vol] 3.4 mmol/L Low 3.5-5.3 [facility] Comment on above: Performed By: #### 2 593556, 8913180, 61612819, 3038573 #### [facility] [address] [place] [address] Sodium [Moles/Vol] 133 mmol/L Low 135-[address] [facility] Comment on above: Performed By: #### 2 703341, 4744151, 74750653, 6932738 #### [facility] [address] [place] [address] CBC w/ Auto Diffon 3 Erythrocyte distribution width (RBC) [Ratio] 12.5 % Normal 10.9-14.[address] [facility] Comment on above: Performed By: #### 2 513622, 0413990, 47831630, 8261275 #### [facility] [address] [place] [address] Hematocrit (Bld) [Volume fraction] 39.8 % Normal 34.0-46.[address] [facility] Comment on above: Performed By: #### 2 755376, 4491583, 03032257, 0609098 #### [facility] [address] [place] [address] Hemoglobin (Bld) [Mass/Vol] 14.2 g/dL Normal 12.0-16.[address] [facility] Comment on above: Performed By: #### 2 080716, 6827331, 19746442, 0785109 #### [facility] [address] [place] [address] MCH (RBC) [Entitic mass] 31.7 pg Normal 27.0-34.[address] [facility] Comment on above: Performed By: #### 2 830681, 0645930, 07857709, 8396490 #### [facility] [address] [place] [address] MCHC (RBC) [Mass/Vol] 35.6 g/dL Normal 31.4-36.0 [facility] Comment on above: Performed By: #### 2 845667, 4501839, 78497211, 8663844 #### [facility] [address] [place] [address] MCV (RBC) [Entitic vol] 89.0 fL Normal 80.0-100.[address] [facility] Comment on above: Performed By: #### 2 194788, 6671950, 02258871, 7128104 #### [facility] [address] [place] [address] Platelet mean volume (Bld) [Entitic vol] 7.6 fL Normal 6.4-10.[address] [facility] Comment on above: Performed By: #### 2 825859, 3190164, 02117222, 3178434 #### [facility] [address] [place] [address] Platelets (Bld) [#/Vol] 170.0 E9/L Normal 150.0-500.[address] [facility] Comment on above: Performed By: #### 2 554743, 3214700, 38866114, 0345399 #### [facility] [address] [place] [address] RBC (Bld) [#/Vol] 4.5 E12/L Normal 4.3-5.[address] [facility] Comment on above: Performed By: #### 2 521050, 7620646, 75592289, 1667447 #### [facility] [address] [place] [address] WBC corrected for nucl RBC Auto (Bld) [#/Vol] 5.8 E9/L Normal 4.0-11.[address] [facility] Comment on above: Performed By: #### 2 871247, 2588012, 12518616, 1100952 #### [facility] [address] [place] [address] CHEMISTRYOrdered By: SYSTEM SYSTEM on 01-03-2023 Anion gap [Moles/Vol] 7 mmol/L Normal 6 - 16 mEq/L [facility] Remisol Calcium [Mass/Vol] 9.3 mg/dL Normal 8.9 - 11. 1 mg/dL [facility] Remisol Chloride [Moles/Vol] 105 mmol/L Normal 101 - 1 11 mmol/L [facility] CO2 [Moles/Vol] 24 mmol/L Normal 21 - 31 mmol/L [facility] Creatinine [Mass/Vol] 0.5 mg/dL Normal 0.5 - 1.3 mg/dL [facility] Remisol GFR/1.73 sq M.predicted among non-blacks MDRD (S/P/Bld) [Vol rate/Area] 133 mL/min/1.73 m2 Normal >=59mL/min/1. 73 m2 [facility] Chem S Glucose [Mass/Vol] 108 mg/dL Normal [...] Treatmenton 12-25 Consent for Treatment [id number] #1.00CD:[address] [facility] ED Clinical Summaryon 2022 ED Clinical Summary [address] [address] ED Clinical Summary Person Information Name: GRACIELA OLIVAREZ [place] Age: 27 Years : 1995 Sex: Female Language: Hong [place]er PCP: Gloria CASTELLANOS CNP Marital Status: Visit [...] 01/03/2023 20:50:04 01/03/2023 20:50:04 01/03/2023 20:50:04 ADDRESS: [address] [place] [phone] [facility] DOC NOTES: MEDICAL INFORMATION: Prescriptions Given: Medications to Continue with No Changes Other Medications ondansetron (Zofran ODT 4 mg Tab-Dis) 1 Tablets By Mouth every 6 hours as needed Nausea/Vomiting. Refills: 0. valacyclovir (valacyclovir 1 g Tab) take 2 tab at first sign of cold sore repeat in 12 hours.. Refills: 1. PATIENT EDUCATION INFORMATION: Instructions: Morning Sickness, Ohmh-fb-Csay Follow up: With: Address: When: Toni WATKINS [facility], [address] [place] [address] [place] [address] Business (1) In 3 days 01/06/2023 DIAGNOSIS: Nausea/vomiting in Normal [facility] ED Note-Physicianon 01-04-20 ED Note-Physician Basic [...] she is dehydrated. Patient is followed by ACCOUNTING RECONCILIATION CLERK, Dr. Watkins, has had an ultrasound which [...] discharged home with instructions to follow with ACCOUNTING RECONCILIATION CLERK and is to return to the ED [...] Toni WATKINS In 3 days 01/06/2023 EDT [facility] [address] [facility] [place] [address] Business (1) Additional Instructions: Patient Education Morning Sickness, Cafw-kb-Cmog Attestation Patient was treated and evaluated by the [facility]. The attending physician was in the Emergency [...] is unknown (more content not included)... Normal [facility] Comment on above: Result Comment: Elec [...] these instructions at home: Medicines ? Take xwbs-byr-bevwmmq and prescription medicines only as told by [...] Reviewed: 11/04/2020 Elsevier Patient Education ? 2022 [employer] Normal [facility] ED Patient Summaryon 023 ED Patient Summary [address] [address] Patient Discharge Instructions Person Information Name: GRACIELA OLIVAREZ Age: 27 Years Arrival Date: 01/03/2023 16:15:39 Discharge Diagnosis: Nausea/vomiting in Primary Care Physician: Gloria CASTELLANOS CNP Provider Information Primary Provider: Kemal Sharma DO [employer]:Velia Correa PA-C The exam and treatment you received in the Emergency Department were for an urgent problem and are not intended as complete care. It is important that you follow up with a doctor, nurse practitioner, or physician?s certified ophthalmic surgical assistant for ongoing care. If your symptoms [...] Follow-up Instructions: With: Address: When: Toni WATKINS [facility], [address] [place] [address] [place] [address] Business (1) In 3 days 01/06/2023 In the event that this physician does not participate in your insurance network, please consult with your insurance company to find a nearby participating provider. Patient Education Materials: Morning Sickness, Wcud-dc-Xzmc A MESSAGE TO ALL PATIENTS REGARDING OPIOIDS PRESCRIPTION OPIOIDS: WHAT YOU NEED TO KNOW Prescription opioids can be used to help relieve ijsofhod-bx-ognbgo pain and are often prescribed following a [...] be struggling with addiction, tell your health laboratory animal care veterinarian and ask for guidance or call [facility] [employer] (more content not included)... Normal [facility] HEMATOLOGYOrdered By: SYSTEM SYSTEM on 01-03-2023 [...] 2022 Bilirubin Ql (U) 1+ Abnormal Negative [facility] Comment on above: Performed By: #### 1 [id number] #### [facility] [address] [place] [address] Clarity (U) CLEAR Normal Clear [facility] Comment on above: Performed By: #### 1 [id number] #### [facility] [address] [place] [address] Color (U) YELLOW Normal Yellow [facility] Comment on above: Performed By: #### 1 [id number] #### [facility] [address] [place] [address] Epithelial cells.squamous LM.HPF (Urine sed) [#/Area] 3-4 Normal 0-2 [facility] Comment on above: Performed By: #### 1 [id number] #### [facility] [address] [place] [address] Glucose Test strip (U) [Mass/Vol] Negative Normal Negative [facility] Comment on above: Performed By: #### 1 [id number] #### [facility] [address] [place] [address] Hemoglobin Ql (U) 2+ Abnormal Negative [facility] Comment on above: Performed By: #### 1 [id number] #### [facility] [address] [place] [address] Ketones (U) [Mass/Vol] 2+ Abnormal Negative [facility] Comment on above: Performed By: #### 1 [id number] #### [facility] [address] [place] [address] [place].plasma/Lithiu m.RBC (Bld) [Mass ratio] 0-3 Normal 0-[address] [facility] Comment on above: Performed By: #### 1 6896531 #### [facility] [address] [place] [address] Mucus Ql (Urine sed) 2+ Normal [facility] Comment on above: Performed By: #### 1 [id number] #### [facility] [address] [place] [address] Nitrite Ql (U) Negative Normal Negative [facility] Comment on above: Performed By: #### 1 [id number] #### [facility] [address] [place] [address] pH (U) 6.0 [pH] Invalid Interpretation Code 5.0-9.[address] [facility] Comment on above: Performed By: #### 1 [id number] #### [facility] [address] [place] [address] Protein (U) [Mass/Vol] 1+ Abnormal Negative [facility] Comment on above: Performed By: #### 1 [id number] #### [facility] [address] [place] [address] Specific gravity (U) [Rel density] >=1.030 Invalid Interpretation Code 1.005-1.[address] [facility] Comment on above: Performed By: #### 1 [id number] #### [facility] [address] [place] [address] Type of Urine collection method Clean Catch Normal [facility] Comment on above: Performed By: #### 1 [id number] #### [facility] [address] [place] [id number] Urobilinogen Qn (U) 1.0 {Maggy'U}/dL Normal 0.0-1.[address] [facility] Comment on above: Performed By: #### 1 [id number] #### [facility] [address] [place] [id number] WBC Auto Ql (U) Negative Normal Negative [facility] Comment on above: Performed By: #### 1 [id number] #### [facility] [address] [place] [address] WBC LM.HPF (Urine sed) [#/Area] 0-5 Normal 0-[address] [facility] Comment on above: Performed By: #### 1 [id number] #### [facility] [address] [place] [address] URINALYSISOrdered By: Dianne Ortiz on 01-03-2023 Bilirubin [...] Interpretation Code Negative [facility] UA Auto SS [place].plasma/Lithiu m.RBC (Bld) [Mass ratio] 0-3 /HPF Normal [...] [facility] UA Auto SS Urobilinogen Qn (U) 1.7759611 {Maggy'U}/dL Normal 0.0 - 1.0 EU/dL [facility] UA Auto SS WBC Auto Ql (U) Negative (01/03/23 5:04 PM) Normal Negative [facility] UA Auto SS WBC LM.HPF (Urine sed) [#/Area] 0-5 /HPF Normal 0-5/HPF [facility] UA Auto SS eGFRon 01-03-2023 GFR/1.73 sq M.predicted among non-blacks MDRD (S/P/Bld) [Vol rate/Area] 133 mL/min/1.73 m2 Normal >=[address] [facility] Comment on above: Order Comment: Order added by Discern Expert. Result Comment: Head Of Human Resources diya kidney disease could be indicated at eGFR's of less than 60 mL/min/1.73m2. Kidney failure is indicated at less than 15 mL/min/1.73m2. Performed By: #### 2 [id number] #### [facility] [address] [place] [address] CULTURE URINEon 01-10-2022 CULTURE URINE Culture Observations: MODERATE GROWTH OF MIXED GENITAL RIC. NO POTENTIAL PATHOGENS SEEN. Normal [facility] Comment on above: Performed By: #### U RCX #### [facility] [address] [place] [address] Dr. Narciso Amaral UA (CLEAN/CATCH) TAIL BOARD MAN/MICRO I F IND.on 01-10-2022 Bilirubin Ql (U) Negative Normal NEGATIVE [facility] Comment on above: Performed By: #### U MICRO, UACSIND #### [facility] [address] [place] [address] Dr. Narciso Amaral Clarity (U) CLEAR Normal CLEAR [facility] Comment on above: Performed By: #### U MICRO, UACSIND #### [facility] [address] [place] [address] Dr. Narciso Amaral Color (U) LT. YELLOW Normal YELLOW [facility] Comment on above: Performed By: #### U MICRO, UACSIND #### [facility] [address] [place] [address] Dr. Narciso Amaral Glucose Ql (U) Negative Normal NEGATIVE [facility] Comment on above: Performed By: #### U MICRO, UACSIND #### [facility] [address] [place] [address] Dr. Narciso Amaral Hemoglobin Ql (U) LARGE Abnormal NEGATIVE [facility] Comment on above: Performed By: #### U MICRO, UACSIND #### [facility] [address] [place] [address] Dr. Narciso Amaral Ketones Ql (U) Negative Normal NEGATIVE [facility] Comment on above: Performed By: #### U MICRO, UACSIND #### [facility] [address] [place] [address] Dr. Narciso Amaral LEUKOCYTES TRACE Abnormal NEGATIVE [facility] Comment on above: Performed By: #### U MICRO, UACSIND #### [facility] [address] [address] [address] Narciso Amaral Nitrite Ql (U) Negative Normal NEGATIVE [facility] Comment on above: Performed By: #### U MICRO, UACSIND #### [facility] [address] [address] [address] Narciso Amaral pH (U) 6.0 [pH] Normal 5-9 [facility] Comment on above: Performed By: #### U MICRO, UACSIND #### [facility] [address] [address] [address] Narciso Amaral SPEC GRAVITY <=1.005 Abnormal 1.005-<=1.025 [facility] Comment on above: Performed By: #### U MICRO, UACSIND #### [facility] [address] [place] [address] Dr. Narciso Amaral UA PROTEIN Negative Normal NEGATIVE/ TRACE [facility] Comment on above: Performed By: #### U MICRO, UACSIND #### [facility] [address] [place] [address] Dr. Narciso Amaral UR MICRO IND INDICATED Normal [facility] Comment on above: Performed By: #### U MICRO, UACSIND #### [facility] [address] [address] [address] Narciso Amaral Urobilinogen Qn (U) 0.2 {Maggy'U}/dL Normal 0.2 - 1. 0 [facility] Comment on above: Performed By: #### U MICRO, UACSIND #### [facility] [address] [address] [address] Narciso Amaral URINE MICROSCOPIC ONLYon BACTERIA SMALL Abnormal NONE SEEN [facility] Comment on above: Performed By: #### U MICRO, UACSIND #### [facility] [address] [address] [address] Narciso Amaral Bacteria identified Cx Nom (U) INDICATED Normal [facility] Comment on above: Performed By: #### U MICRO, UACSIND #### [facility] [address] [place] [address] Dr. Narciso Amaral CAST NONE SEEN Normal NONE SEEN [facility] Comment on above: Performed By: #### U MICRO, UACSIND #### [facility] [address] [place] [address] Dr. Narciso Amaral Crystals LM Nom (Urine sed) NONE SEEN Normal NONE SEEN [facility] Comment on above: Performed By: #### U MICRO, UACSIND #### [facility] [address] [place] [address] Dr. Narciso Amaral Epithelial cells LM Ql (Urine sed) FEW Abnormal NONE SEEN /RARE [facility] Comment on above: Performed By: #### U MICRO, UACSIND #### [facility] [address] [place] [address] Dr. Narciso Amaral MUCOUS NONE SEEN Normal NONE SEEN [facility] Comment on above: Performed By: #### U MICRO, UACSIND #### [facility] [address] [place] [address] Dr. Narciso Amaral RBC 5-10 Abnormal 0-2 [facility] Comment on above: Performed By: #### U MICRO, UACSIND #### [facility] [address] [place] [address] Dr. Narciso Amaral WBC 0-2 Abnormal NONE SEEN [facility] Comment on above: Performed By: #### U MICRO, UACSIND #### [facility] [address] [place] [address] Dr. Narciso Amaral CBC AUTO DIFFon 01-09-2022 BASO # 0.0 103/ul Normal 0.0-0.1 [facility] Comment on above: Performed By: #### C BC #### [facility] [address] [place] [address] Dr. Narciso Amaral Basophils/100 WBC (Bld) 0.2 % Normal 0.2-2.0 [facility] Comment on above: Performed By: #### C BC #### [facility] [address] [place] [address] Dr. Narciso Amaral EO # 0.0 103/ul Normal 0.0-0.7 [facility] Comment on above: Performed By: #### C BC #### [facility] [address] [place] [address] Dr. Narciso Amaral Eosinophils/100 WBC (Bld) 0.1 % Critically low 0.9-7.0 [facility] Comment on above: Performed By: #### C BC #### [facility] [address] [place] [address] Dr. Narciso Amaral Erythrocyte distribution width (RBC) [Ratio] 12.8 % Normal 11.0-15.0 [facility] Comment on above: Performed By: #### C BC #### [facility] [address] [place] [address] Dr. Narciso Amaral Hematocrit (Bld) [Volume fraction] 30.8 % Critically low 36.0-48.0 [facility] Comment on above: Performed By: #### C BC #### [facility] [address] [place] [address] Dr. Narciso Amaral Hemoglobin (Bld) [Mass/Vol] 10.0 g/dL Critically low 12.0-16.0 [facility] Comment on above: Performed By: #### C BC #### [facility] [address] [place] [address] Dr. Narciso Amaral IG # 0.02 10e3/ul Normal 0.00-0.03 [facility] Comment on above: Performed By: #### C BC #### [facility] [address] [place] [address] Dr. Narciso Amaral IG % 0.2 % Normal 0.0-0.5 [facility] Comment on above: Performed By: #### C BC #### [facility] [address] [place] [address] Dr. Narciso Amaral LYMPH # 1.4 103/ul Normal 1.2-3.8 [facility] Comment on above: Performed By: #### C BC #### [facility] [address] [place] [address] Dr. Narciso Amaral Lymphocytes/100 WBC (Bld) 14.0 % Critically low 20.5-60.0 [facility] Comment on above: Performed By: #### C BC #### [facility] [address] [place] [address] Dr. Narciso Amaral MANUAL DIFF REQ NO Normal [facility] Comment on above: Performed By: #### C BC #### [facility] [address] [place] [address] Dr. Narciso Amaral MCH (RBC) [Entitic mass] 31.7 pg Normal 26.7-34.0 [facility] Comment on above: Performed By: #### C BC #### [facility] [address] [place] [address] Dr. Narciso Amaral MCHC (RBC) [Mass/Vol] 32.5 g/dL Normal 29.9-35.2 [facility] Comment on above: Performed By: #### C BC #### [facility] [address] [place] [address] Dr. Narciso Amaral MCV (RBC) [Entitic vol] 97.8 fL Normal 81.0-99.0 [facility] Comment on above: Performed By: #### C BC #### [facility] [address] [place] [address] Dr. Narciso Amaral MONO # 0.8 103/ul Normal 0.3-0.8 [facility] Comment on above: Performed By: #### C BC #### [facility] [address] [place] [address] Dr. Narciso Amaral Monocytes/100 WBC (Bld) 8.2 % Normal 1.7-12.0 [facility] Comment on above: Performed By: #### C BC #### [facility] [address] [place] [address] Dr. Narciso Amaral NEUT # 7.9 103/ul Critically high 1.4-6.5 [facility] Comment on above: Performed By: #### C BC #### [facility] [address] [place] [address] Dr. Narciso Amaral Neutrophils/100 WBC (Bld) 77.3 % Critically high 43.0-75.0 [facility] Comment on above: Performed By: #### C BC #### [facility] [address] [place] [address] Dr. Narciso Amaral Platelet mean volume (Bld) [Entitic vol] 9.9 fL Normal 9.5-13.5 [facility] Comment on above: Performed By: #### C BC #### [facility] [address] [place] [address] Dr. Narciso Amaral PLT 143 103/ul Critically low 150-450 [facility] Comment on above: Performed By: #### C BC #### [facility] [address] [place] [address] Dr. Narciso Amaral RBC 3.15 106/ul Critically low 4.20-5.40 [facility] Comment on above: Performed By: #### C BC #### [facility] [address] [place] [address] Dr. Narciso Amaral WBC 10.2 103/ul Normal 4.0-11.0 [facility] Comment on above: Performed By: #### C BC #### [facility] [address] [place] [address] Dr. Narciso Amaral CBC AUTO DIFFon 01-08-2022 BASO # 0.0 103/ul Normal 0.0-0.1 [facility] Comment on above: Performed By: #### C BC #### [facility] [address] [place] [address] Dr. Narciso Amaral Basophils/100 WBC (Bld) 0.3 % Normal 0.2-2.0 [facility] Comment on above: Performed By: #### C BC #### [facility] [address] [place] [address] Dr. Narciso Amaral EO # 0.0 103/ul Normal 0.0-0.7 [facility] Comment on above: Performed By: #### C BC #### [facility] [address] [place] [address] Dr. Narciso Amaral Eosinophils/100 WBC (Bld) 0.4 % Critically low 0.9-7.0 [facility] Comment on above: Performed By: #### C BC #### [facility] [address] [place] [address] Dr. Narciso Amaral Erythrocyte distribution width (RBC) [Ratio] 12.7 % Normal 11.0-15.0 [facility] Comment on above: Performed By: #### C BC #### [facility] [address] [place] [address] Dr. Narciso Amaral Hematocrit (Bld) [Volume fraction] 38.0 % Normal 36.0-48.0 [facility] Comment on above: Performed By: #### C BC #### [facility] [address] [place] [address] Dr. Narciso Amaral Hemoglobin (Bld) [Mass/Vol] 12.5 g/dL Normal 12.0-16.0 [facility] Comment on above: Performed By: #### C BC #### [facility] [address] [place] [address] Dr. Narciso Amaral IG # 0.03 10e3/ul Normal 0.00-0.03 [facility] Comment on above: Performed By: #### C BC #### [facility] [address] [place] [address] Dr. Narciso Amaral IG % 0.4 % Normal 0.0-0.5 [facility] Comment on above: Performed By: #### C BC #### [facility] [address] [place] [address] Dr. Narciso Amaral LYMPH # 1.3 103/ul Normal 1.2-3.8 [facility] Comment on above: Performed By: #### C BC #### [facility] [address] [place] [address] Dr. Narciso Amaral Lymphocytes/100 WBC (Bld) 17.6 % Critically low 20.5-60.0 [facility] Comment on above: Performed By: #### C BC #### [facility] [address] [place] [address] Dr. Narciso Amaral MANUAL DIFF REQ NO Normal [facility] Comment on above: Performed By: #### C BC #### [facility] [address] [place] [address] Dr. Narciso Amaral MCH (RBC) [Entitic mass] 31.6 pg Normal 26.7-34.0 [facility] Comment on above: Performed By: #### C BC #### [facility] [address] [place] [address] Dr. Narciso Amaral MCHC (RBC) [Mass/Vol] 32.9 g/dL Normal 29.9-35.2 [facility] Comment on above: Performed By: #### C BC #### [facility] [address] [place] [address] Dr. Narciso Amaral MCV (RBC) [Entitic vol] 96.0 fL Normal 81.0-99.0 [facility] Comment on above: Performed By: #### C BC #### [facility] [address] [place] [address] Dr. Narciso Amaral MONO # 0.5 103/ul Normal 0.3-0.8 [facility] Comment on above: Performed By: #### C BC #### [facility] [address] [place] [address] Dr. Narciso Amaral Monocytes/100 WBC (Bld) 6.2 % Normal 1.7-12.0 [facility] Comment on above: Performed By: #### C BC #### [facility] [address] [place] [address] Dr. Narciso Amaral NEUT # 5.5 103/ul Normal 1.4-6.5 [facility] Comment on above: Performed By: #### C BC #### [facility] [address] [place] [address] Dr. Narciso Amaral Neutrophils/100 WBC (Bld) 75.1 % Critically high 43.0-75.0 [facility] Comment on above: Performed By: #### C BC #### [facility] [address] [place] [address] Dr. Narciso Amaral Platelet mean volume (Bld) [Entitic vol] 10.3 fL Normal 9.5-13.5 [facility] Comment on above: Performed By: #### C BC #### [facility] [address] [address] [address] Narciso Amaral PLT 159 103/ul Normal 150-450 [facility] Comment on above: Performed By: #### C BC #### [facility] [address] [place] [address] Dr. Narciso Amaral RBC 3.96 106/ul Critically low 4.20-5.40 [facility] Comment on above: Performed By: #### C BC #### [facility] [address] [place] [address] Dr. Narciso Amaral WBC 7.4 103/ul Normal 4.0-11.0 [facility] Comment on above: Performed By: #### C BC #### [facility] [address] [place] [address] Dr. Narciso Amaral Covid-19 PCR ([facility])on 12-25 SARS-CoV-2 (COVID-19) RNA MOHAN+probe Ql (Unsp spec) Not detected Normal NOT DETECTED [facility] Comment on above: Result Comment: When [...] for this test is supported by the Manufacturing Project Manager of Health and Human Service's declaration that [...] used). Performed By: #### C VDTBH #### [facility] [address] [place] [address] Dr. Narciso Amaral DRUG SCREEN RAPID (URINE)on 01-08-2022 AMP Negative Normal NEGATIVE [facility] Comment on above: Performed By: #### C T/NGNA #### [facility] [address] [place] [address] Dr. Narciso Amaral BAR Negative Normal NEGATIVE [facility] Comment on above: Performed By: #### C T/NGNA #### [facility] [address] [place] [address] Dr. Narciso Amaral BUP Negative Normal NEGATIVE [facility] Comment on above: Performed By: #### C T/NGNA #### [facility] [address] [place] [address] Dr. Narciso Amaral BZO Negative Normal NEGATIVE [facility] Comment on above: Performed By: #### C T/NGNA #### [facility] [address] [place] [address] Dr. Narciso Amaral TREY Negative Normal NEGATIVE [facility] Comment on above: Performed By: #### C T/NGNA #### [facility] [address] [place] [address] Dr. Narciso Amaral CUT-OFFS SEE BELOW Normal [facility] Comment on above: Result Comment: AMP [...] ng/mL Performed By: #### C T/NGNA #### [facility] [address] [place] [address] Dr. Narciso Amaral DRUG CUT HEADER DRUG CLASS TEST SYSTEM CUT-OFF CONCENTRATIONS ARE FOLLOWS: Normal [facility] Comment on above: Performed By: #### C T/NGNA #### [facility] [address] [place] [address] Dr. Narciso Amaral mAMP Negative Normal NEGATIVE [facility] Comment on above: Performed By: #### C T/NGNA #### [facility] [address] [address] [address] Narciso Amaral MTD Negative Normal NEGATIVE [facility] Comment on above: Performed By: #### C T/NGNA #### [facility] [address] [place] [address] Dr. Narciso Amaral OPI Negative Normal NEGATIVE [facility] Comment on above: Performed By: #### C T/NGNA #### [facility] [address] [address] [address] Narciso Amaral OXY Negative Normal NEGATIVE [facility] Comment on above: Performed By: #### C T/NGNA #### [facility] [address] [place] [address] Dr. Narciso Amaral PCP Negative Normal NEGATIVE [facility] Comment on above: Performed By: #### C T/NGNA #### [facility] [address] [address] [address] Narciso Amaral PPX Negative Normal NEGATIVE [facility] Comment on above: Performed By: #### C T/NGNA #### [facility] [address] [address] [address] Narciso Amaral TCA Negative Normal NEGATIVE [facility] Comment on above: Performed By: #### C T/NGNA #### [facility] [address] [place] [address] Dr. Narciso Amaral THC Negative Normal NEGATIVE [facility] Comment on above: Performed By: #### C T/NGNA #### [facility] [address] [place] [address] Dr. Narciso Amaral TYPE AND SCREENon 01-08-2022 TYPE AND SCREEN Negative Normal [facility] Comment on above: Performed By: #### C T/NGNA #### [facility] [address] [place] [address] Dr. Narciso Amaral US PREG BIOPHY W [...] KRISTINA ESTRADA Date: 2022-01-07 16:20 Normal [facility] US PREG BIOPHY W NON STRESSo [...] KRISTINA ESTRADA Date: 2021-12-31 16:27 Normal [facility] VAGINITIS/VAGINOSIS DNA PROB Julius 12-26-2021 Fany species Negative Normal Negative [facility] Comment on above: Performed By: #### C BC #### [facility] [address] [address] [address] Narciso Amaral Gardnerella vaginalis Negative Normal Negative [facility] Comment on above: Performed By: #### C BC #### [facility] [address] [address] [address] Narciso Amaral Trichomonas vaginalis Negative Normal Negative [facility] Comment on above: Performed By: #### C BC #### [facility] [address] [address] [address] Narciso Amaral US PREG BIOPHY W [...] KRISTINA ESTRADA Date: 2021-12-25 09:13 Normal [facility] GROUP B STREP CULTUREon 11-26 S. agalactiae Ag Ql (Unsp spec) Culture Observations: NEGATIVE FOR GROUP B STREPTOCOCCUS. Normal [facility] Comment on above: Performed By: #### C Zoran/HAWA #### [facility] [address] [place] [address] Dr. Narciso Amaral US PREG GROWTHon 12-24-2021 US PREG GROWTH Ultrasound biophysical profile Ultrasound obstetrical, limited CLINICAL: Oligohydramnios follow-up. TECHNIQUE: Transabdominal obstetrical ultrasound was performed. Ultrasound biophysical profile was also performed by tig welder. FINDINGS: 09/29/2021. FETUS AND PLACENTA: There is [...] gestational age according to Hadlock criteria. Remarks: Lung Splitter reports that Dr. Watkins is aware of findings. Electronically authenticated by: AMPARO PATEL Date: 2021-12-24 12:27 [facility] Hematocrit (Bld) [Volume fraction] 35.7 % Low 36 - 46 % [facility] Hemoglobin (Bld) [Mass/Vol] 11.9 g/dL Low 12.0 - 16.0 g/dL [facility] Interpretation and review of laboratory results Abnormal [facility] MCH (RBC) [Entitic mass] 32.8 pg 26 - 34 pg [facility] MCHC (RBC) [Mass/Vol] 33.4 g/dL 31 - 37 g/dL B ON [facility] MCV (RBC) [Entitic vol] 98.1 fL 80 - 100 fL [facility] Platelet distribution width (Bld) [Ratio] 12.1 % 12.1 - 15.2 % [facility] Platelets (Bld) [#/Vol] 178 10*3/uL [facility] RBC (Bld) [#/Vol] 3.64 10*6/uL Low 4.0 - 5.2 m/uL [facility] WBC (Bld) [#/Vol] 7.6 10*3/uL [facility] Glucose tolerance, 1 houron 10-28-2021 GLU ADMN Glucola [facility] [facility] [place] Glucose tolerance screen 50g 134 mg/dL 70 - 135 mg/dL [facility] US PREG INCOMPLETE ANATOMYon 09-29-2021 US PREG [...] by: GREG RODNEY Date: 2021-09-29 08:50 Normal [facility] US PREG ANATOMY SINGLEon US PREG [...] KRISTINA ESTRADA Date: 2021-09-01 16:26 Normal [facility] AFP MATERNAL FOR SPINA BIFID Aon 08-25-2021 AFP MoM 0.71 Normal [facility] Comment on above: Performed By: #### C BC #### [facility] [address] [address] [address] Narciso Amaral AFP Value 45.2 ng/mL Normal [facility] Comment on above: Performed By: #### C BC #### [facility] [address] [address] [address] Narciso Amaral AFP, Serum for Spina Bifida Report Normal [facility] Comment on above: Performed By: #### C BC #### [facility] [address] [address] [address] Narciso Amaral Comment Comment Normal [facility] Comment on above: Result Comment: Ky Magallon, Ph.D., [facility] Director . References: Available Upon Request. . Multiples Of Median Cutoffs For AFP Elevations Bernstein 2.5 Black 2.8 IDD 2.0 Twins 4.5 Abbreviation Definitions IDD - Insulin Dep Diabetes OSBR - Open Spina Bifida Risk . For further inquiries contact [employer] at [phone]. Performed By: #### C BC #### [facility] [address] [address] [address] Narciso Echevarria Age Collection Date 19.0 weeks [facility] Comment on above: Performed By: #### C BC #### [facility] [address] [address] [address] Narciso Amaral Gestat, Age Based on LMP Normal [facility] Comment on above: Result Comment: Reca lculations are not recommended when gestational dating by LMP and ultrasound are within 10 days. Performed By: #### C BC #### [facility] [address] [address] [address] Narciso Amaral Insulin Dep Diabetes No Normal [facility] Comment on above: Performed By: #### C BC #### [facility] [address] [place] [address] Dr. Narciso Amaral Interpretation Comment Normal [facility] Comment on above: Result Comment: Inte [...] Customer Services to discuss available options. The [employer] recommends amniocentesis be offered to women age 35 and older. Performed By: #### C BC #### [facility] [address] [address] [address] Narciso Amaral Maternal Age at ELOY 26.[address] [age] [address] [facility] Comment on above: Performed By: #### C BC #### [facility] [address] [address] [address] Narciso Amaral Multiple Gestation No Normal [facility] Comment on above: Performed By: #### C BC #### [facility] [address] [address] [address] Narciso Amaral OS[place] 1 [place] [address] Normal [facility] Comment on above: Performed By: #### C BC #### [facility] [address] [address] [address] Narciso Amaral PDF . [facility] Comment on above: Performed By: #### C BC #### [facility] [address] [address] [address] Narciso Amaral Race [facility] Comment on above: Performed By: #### C BC #### [facility] [address] [address] [address] Narciso Amaral Test Results: Negative [facility] Comment on above: Performed By: #### C BC #### [facility] [address] [address] [address] Narciso Amaral PAP ACOG PANEL 2: 21 to 29on 08-23-2021 . . [facility] Comment on above: Performed By: #### C BC #### [facility] [address] [place] [address] Dr. Narciso Amaral Age Gdln ACOG Testing - [facility] Comment on above: Performed By: #### C BC #### [facility] [address] [place] [address] Dr. Narciso Amaral DIAGNOSIS: Comment [facility] Comment on above: Result Comment: NEGA TIVE FOR INTRAEPITHELIAL LESION OR MALIGNANCY. Performed By: #### C BC #### [facility] [address] [place] [address] Dr. Narciso Amaral Methodology: Comment [facility] Comment on above: Result Comment: This liquid based ThinPrep(R) pap test was screened with the use of an image guided system. Performed By: #### C BC #### [facility] [address] [place] [address] Dr. Narciso Amaral Note: Comment [facility] Comment on above: Result Comment: The Pap smear is a screening test designed to aid in the detection of premalignant and malignant conditions of the uterine cervix. It is not a diagnostic procedure and should not be used as the sole means of detecting cervical cancer. Both false-positive and false-negative reports do occur. . Performed By: #### C BC #### [facility] [address] [place] [address] Dr. Narciso Amaral Performed by: Comment Normal [facility] Comment on above: Result Comment: [employer] Comfort Filler (ASCP) Performed By: #### C BC #### [facility] [address] [place] [address] Dr. Narciso Amaral Reflex Criteria: Comment Normal [facility] Comment on above: Result Comment: The HPV DNA reflex criteria were not met with this specimen result therefore, no HPV testing was performed. . Performed By: #### C BC #### [facility] [address] [place] [address] Dr. Narciso Amaral Specimen adequacy: Comment Normal [facility] Comment on above: Result Comment: Sati sfactory for evaluation. No endocervical component is identified. Performed By: #### C BC #### [facility] [address] [place] [address] Dr. Narciso Amaral CHLAMYDIA/GONOCOCCUS MOHAN (SW AB/URINE/PAPon 08-21-2021 Chlamydia trachomatis, MOHAN Negative Normal Negative [facility] Comment on above: Performed By: #### C T/NGNA #### [facility] [address] [place] [address] Dr. Narciso Amaral Neisseria gonorrhoeae, MOHAN Negative Normal Negative [facility] Comment on above: Performed By: #### C T/NGNA #### [facility] [address] [place] [address] Dr. Narciso Amaral HEP B SURFACE ANTIGEN SCREEN on 07-04-2021 HBsAg Screen Negative Normal Negative [facility] Comment on above: Performed By: #### N BOX #### [facility] [address] [place] [address] Dr. Narciso Amaral HEPATITIS C VIRUS AB W/ REFL EX QUANTon 07-04-2021 HCV AB <0.1 Normal 0.0-0.9 [facility] Comment on above: Performed By: #### C BC #### [facility] [address] [place] [address] Dr. Narciso Amaral Interpretation: Comment Normal [facility] Comment on above: Result Comment: Nega tive Not infected with HCV, unless recent infection is suspected or other evidence exists to indicate HCV infection. Performed By: #### C BC #### [facility] [address] [place] [address] Dr. Narciso Amaral HIV 1 AND 2 WITH REFLEXon HIV Screen 4th Generation wRfx Non-Reactive Normal Non Reactive [facility] Comment on above: Result Comment: HIV Negative HIV-1/HIV-2 antibodies and HIV-1 p24 antigen were NOT detected. There is no laboratory evidence of HIV infection. Performed By: #### N BOX #### [facility] [address] [place] [address] Dr. Narciso Amaral RPR QUANTon 07-04-2021 Rapid Plasma Reagin, Quant Non-Reactive Normal NonRea<1:1 [facility] Comment on above: Performed By: #### C BC #### [facility] [address] [place] [address] Dr. Narciso Amaral RUBELLA AB IGGon 07-04-2021 Rubella Antibodies, IgG <0.90 Critically low Immune >0.99 [facility] Comment on above: Result Comment: Non- immune <0.90 Equivocal 0.90 - 0.99 Immune >0.99 Performed By: #### R UBIGG #### [facility] [address] [place] [address] Dr. Narciso Amaral CBC AUTO DIFFon 07-03-2021 BASO # 0.0 103/ul Normal 0.0-0.1 [facility] Comment on above: Performed By: #### C BC #### [facility] [address] [place] [address] Dr. Narciso Amaral Basophils/100 WBC (Bld) 0.4 % Normal 0.2-2.0 [facility] Comment on above: Performed By: #### C BC #### [facility] [address] [place] [address] Dr. Narciso Amaral EO # 0.0 103/ul Normal 0.0-0.7 [facility] Comment on above: Performed By: #### C BC #### [facility] [address] [place] [address] Dr. Narciso Amaral Eosinophils/100 WBC (Bld) 0.4 % Critically low 0.9-7.0 [facility] Comment on above: Performed By: #### C BC #### [facility] [address] [place] [address] Dr. Narciso Amaral Erythrocyte distribution width (RBC) [Ratio] 11.9 % Normal 11.0-15.0 [facility] Comment on above: Performed By: #### C BC #### [facility] [address] [place] [address] Dr. Narciso Amaral Hematocrit (Bld) [Volume fraction] 33.0 % Critically low 36.0-48.0 [facility] Comment on above: Performed By: #### C BC #### [facility] [address] [place] [address] Dr. Narciso Amaral Hemoglobin (Bld) [Mass/Vol] 11.3 g/dL Critically low 12.0-16.0 [facility] Comment on above: Performed By: #### C BC #### [facility] [address] [place] [address] Dr. Narciso Amaral IG # 0.01 10e3/ul Normal 0.00-0.03 [facility] Comment on above: Performed By: #### C BC #### [facility] [address] [place] [address] Dr. Narciso Amaral IG % 0.2 % Normal 0.0-0.5 [facility] Comment on above: Performed By: #### C BC #### [facility] [address] [place] [address] Dr. Narciso Amaral LYMPH # 1.9 103/ul Normal 1.2-3.8 [facility] Comment on above: Performed By: #### C BC #### [facility] [address] [place] [address] Dr. Narciso Amaral Lymphocytes/100 WBC (Bld) 35.9 % Normal 20.5-60.0 [facility] Comment on above: Performed By: #### C BC #### [facility] [address] [place] [address] Dr. Narciso Amaral MANUAL DIFF REQ NO Normal [facility] Comment on above: Performed By: #### C BC #### [facility] [address] [place] [address] Dr. Narciso Amaral MCH (RBC) [Entitic mass] 31.6 pg Normal 26.7-34.0 [facility] Comment on above: Performed By: #### C BC #### [facility] [address] [place] [address] Dr. Narciso Amaral MCHC (RBC) [Mass/Vol] 34.2 g/dL Normal 29.9-35.2 [facility] Comment on above: Performed By: #### C BC #### [facility] [address] [place] [address] Dr. Narciso Amaral MCV (RBC) [Entitic vol] 92.2 fL Normal 81.0-99.0 [facility] Comment on above: Performed By: #### C BC #### [facility] [address] [place] [address] Dr. Narciso Amaral MONO # 0.2 103/ul Critically low 0.3-0.8 [facility] Comment on above: Performed By: #### C BC #### [facility] [address] [place] [address] Dr. Narciso Amaral Monocytes/100 WBC (Bld) 4.2 % Normal 1.7-12.0 [facility] Comment on above: Performed By: #### C BC #### [facility] [address] [place] [address] Dr. Narciso Amaral NEUT # 3.1 103/ul Normal 1.4-6.5 [facility] Comment on above: Performed By: #### C BC #### [facility] [address] [place] [address] Dr. Narciso Amaral Neutrophils/100 WBC (Bld) 58.9 % Normal 43.0-75.0 [facility] Comment on above: Performed By: #### C BC #### [facility] [address] [place], [place] [id number] Dr. Narciso Amaral Platelet mean volume (Bld) [Entitic vol] 10.4 fL Normal 9.5-13.5 [facility] Comment on above: Performed By: #### C BC #### [facility] [address] [place] [address] Dr. Narciso Amaral PLT 158 103/ul Normal 150-450 [facility] Comment on above: Performed By: #### C BC #### [facility] [address] [address] [address] Narciso Amaral RBC 3.58 106/ul Critically low 4.20-5.40 [facility] Comment on above: Performed By: #### C BC #### [facility] [address] [place] [address] Dr. Narciso Amaral WBC 5.2 103/ul Normal 4.0-11.0 [facility] Comment on above: Performed By: #### C BC #### [facility] [address] [place] [address] Dr. Narciso Amaral CULTURE URINEon 07-03-2021 CULTURE URINE Culture Observations: No growth Normal [facility] Comment on above: Performed By: #### U RCX #### [facility] [address] [place] [address] Dr. Narciso Amaral GLYCOHEMOGLOBIN A1Con 2021 ADA RECOMMENDATION ADA THERAPEUTIC TARGET 6.0 - 7.0 ACTION SUGGESTED > 7.0 Normal [facility] Comment on above: Performed By: #### N BOX #### [facility] [address] [place] [address] Dr. Narciso Amaral Glucose [Mass/Vol] 88 mg/dL Normal [facility] Comment on above: Performed By: #### N BOX #### [facility] [address] [place] [address] Dr. Narciso Amaral HbA1c (Bld) [Mass fraction] 4.7 % Normal <=6.0 [facility] Comment on above: Performed By: #### N BOX #### [facility] [address] [place] [address] Dr. Narciso Amaral BERNADINE BOX TEST PT SEND OUTo n 07-03-2021 SENT TO REF LAB 07/03/2021 Normal [facility] Comment on above: Performed By: #### N BOX #### [facility] [address] [place] [address] Dr. Narciso Amaral TYPE AND SCREENon 07-03-2021 TYPE AND SCREEN Negative Normal [facility] Comment on above: Performed By: #### C T/NGNA #### [facility] [address] [place] [address] Dr. Narciso Amaral CBC AUTO DIFFon 06-17-2021 BASO # 0.0 103/ul Normal 0.0-0.1 [facility] Comment on above: Performed By: #### N BOX #### [facility] [address] [place] [address] Dr. Narciso Amaral Basophils/100 WBC (Bld) 0.4 % Normal 0.2-2.0 [facility] Comment on above: Performed By: #### N BOX #### [facility] [address] [place] [address] Dr. Narciso Amaral EO # 0.0 103/ul Normal 0.0-0.7 [facility] Comment on above: Performed By: #### N BOX #### [facility] [address] [place] [address] Dr. Narciso Amaral Eosinophils/100 WBC (Bld) 0.0 % Critically low 0.9-7.0 [facility] Comment on above: Performed By: #### N BOX #### [facility] [address] [place] [address] Dr. Narciso Amaral Erythrocyte distribution width (RBC) [Ratio] 11.6 % Normal 11.0-15.0 [facility] Comment on above: Performed By: #### N BOX #### [facility] [address] [place] [address] Dr. Narciso Amaral Hematocrit (Bld) [Volume fraction] 42.6 % Normal 36.0-48.0 [facility] Comment on above: Performed By: #### N BOX #### [facility] [address] [place] [address] Dr. Narciso Amaral Hemoglobin (Bld) [Mass/Vol] 14.9 g/dL Normal 12.0-16.0 [facility] Comment on above: Performed By: #### N BOX #### [facility] [address] [place] [address] Dr. Narciso Amaral IG # 0.02 10e3/ul Normal 0.00-0.03 [facility] Comment on above: Performed By: #### N BOX #### [facility] [address] [place] [address] Dr. Narciso Amaral IG % 0.3 % Normal 0.0-0.5 [facility] Comment on above: Performed By: #### N BOX #### [facility] [address] [place] [address] Dr. Narciso Amaral LYMPH # 2.1 103/ul Normal 1.2-3.8 [facility] Comment on above: Performed By: #### N BOX #### [facility] [address] [place] [address] Dr. Narciso Amaral Lymphocytes/100 WBC (Bld) 28.8 % Normal 20.5-60.0 [facility] Comment on above: Performed By: #### N BOX #### [facility] [address] [place] [address] Dr. Narciso Amaral MANUAL DIFF REQ NO Normal [facility] Comment on above: Performed By: #### N BOX #### [facility] [address] [place] [address] Dr. Narciso Amaral MCH (RBC) [Entitic mass] 31.6 pg Normal 26.7-34.0 [facility] Comment on above: Performed By: #### N BOX #### [facility] [address] [place] [address] Dr. Narciso Amaral MCHC (RBC) [Mass/Vol] 35.0 g/dL Normal 29.9-35.2 [facility] Comment on above: Performed By: #### N BOX #### [facility] [address] [place] [address] Dr. Narciso Amaral MCV (RBC) [Entitic vol] 90.4 fL Normal 81.0-99.0 [facility] Comment on above: Performed By: #### N BOX #### [facility] [address] [place] [address] Dr. Narciso Amaral MONO # 0.3 103/ul Normal 0.3-0.8 [facility] Comment on above: Performed By: #### N BOX #### [facility] [address] [place] [address] Dr. Narciso Amaral Monocytes/100 WBC (Bld) 4.6 % Normal 1.7-12.0 [facility] Comment on above: Performed By: #### N BOX #### [facility] [address] [place] [address] Dr. Narciso Amaral NEUT # 4.7 103/ul Normal 1.4-6.5 [facility] Comment on above: Performed By: #### N BOX #### [facility] [address] [place] [address] Dr. Narciso Amaral Neutrophils/100 WBC (Bld) 65.9 % Normal 43.0-75.0 [facility] Comment on above: Performed By: #### N BOX #### [facility] [address] [place] [address] Dr. Narciso Amaral Platelet mean volume (Bld) [Entitic vol] 9.7 fL Normal 9.5-13.5 [facility] Comment on above: Performed By: #### N BOX #### [facility] [address] [place] [address] Dr. Narciso Amaral PLT 199 103/ul Normal 150-450 [facility] Comment on above: Performed By: #### N BOX #### [facility] [address] [place] [address] Dr. Narciso Amaral RBC 4.71 106/ul Normal 4.20-5.40 [facility] Comment on above: Performed By: #### N BOX #### [facility] [address] [place] [address] Dr. Narciso Amaral WBC 7.1 103/ul Normal 4.0-11.0 [facility] Comment on above: Performed By: #### N BOX #### [facility] [address] [place] [address] Dr. Narciso WILL URINE PROFILEon 2 Bilirubin Ql (U) Negative Normal NEGATIVE [facility] Comment on above: Performed By: #### E RUR #### [facility] [address] [place] [address] Dr. Narciso Amaral Clarity (U) SL CLOUDY Abnormal CLEAR [facility] Comment on above: Performed By: #### E RUR #### [facility] [address] [place] [address] Dr. Narciso Amaral Color (U) YELLOW Normal YELLOW [facility] Comment on above: Performed By: #### E RUR #### [facility] [address] [place] [address] Dr. Narciso MCCLELLAN A micrscopic examination will be performed if indicated. Normal [facility] Comment on above: Performed By: #### E RUR #### [facility] [address] [place] [address] Dr. Narciso Amaral Glucose Ql (U) Negative Normal NEGATIVE [facility] Comment on above: Performed By: #### E RUR #### [facility] [address] [place] [address] Dr. Narciso Amaral Hemoglobin Ql (U) Negative Normal NEGATIVE [facility] Comment on above: Performed By: #### E RUR #### [facility] [address] [place] [address] Dr. Narciso Amaral Ketones Ql (U) >=80 Abnormal NEGATIVE [facility] Comment on above: Performed By: #### E RUR #### [facility] [address] [place] [address] Dr. Narciso Amaral LEUKOCYTES Negative Normal NEGATIVE [facility] Comment on above: Performed By: #### E RUR #### [facility] [address] [place] [address] Dr. Narciso Amaral Nitrite Ql (U) Negative Normal NEGATIVE [facility] Comment on above: Performed By: #### E RUR #### [facility] [address] [place] [address] Dr. Narciso Amaral pH (U) 6.0 [pH] Normal 5-9 [facility] Comment on above: Performed By: #### E RUR #### [facility] [address] [place] [address] Dr. Narciso Amaral SPEC GRAVITY >=1.030 Abnormal 1.005-<=1.025 [facility] Comment on above: Performed By: #### E RUR #### [facility] [address] [place] [address] Dr. Narciso Amaral UA PROTEIN TRACE Normal NEGATIVE/ TRACE [facility] Comment on above: Performed By: #### E RUR #### [facility] [address] [place] [address] Dr. Narciso Amaral UR MICRO IND NOT INDICATED Normal [facility] Comment on above: Performed By: #### E RUR #### [facility] [address] [place] [address] Dr. Narciso Amaral Urobilinogen Qn (U) 1.0 {Maggy'U}/dL Normal 0.2 - 1. 0 [facility] Comment on above: Performed By: #### E RUR #### [facility] [address] [place] [address] Dr. Narciso Amaral PROF 14(COMP METB)on 022 Albumin [Mass/Vol] 4.6 g/dL Normal 3.5-5.0 [facility] Comment on above: Performed By: #### C BC #### [facility] [address] [place] [address] Dr. Narciso Amaral Albumin/Globulin [Mass ratio] 1.0 {ratio} Normal [facility] Comment on above: Performed By: #### C BC #### [facility] [address] [place] [address] Dr. Narciso Amaral ALP [Catalytic activity/Vol] 54 U/L Normal 38-126 [facility] Comment on above: Performed By: #### C BC #### [facility] [address] [address] [address] Narciso Amaral ALT [Catalytic activity/Vol] 12 U/L Normal 9-52 [facility] Comment on above: Performed By: #### C BC #### [facility] [address] [place] [address] Dr. Narciso Amaral Anion gap [Moles/Vol] 14.8 mmol/L Normal [facility] Comment on above: Performed By: #### C BC #### [facility] [address] [place] [address] Dr. Narciso Amaral AST [Catalytic activity/Vol] 11 U/L Critically low 14-36 [facility] Comment on above: Performed By: #### C BC #### [facility] [address] [place] [address] Dr. Narciso Amaral Bilirubin [Mass/Vol] 0.9 mg/dL Normal 0.2-1.3 [facility] Comment on above: Performed By: #### C BC #### [facility] [address] [place] [address] Dr. Narciso Amaral Calcium [Mass/Vol] 9.6 mg/dL Normal 8.4-10.2 [facility] Comment on above: Performed By: #### C BC #### [facility] [address] [place] [address] Dr. Narciso Amaral Chloride [Moles/Vol] 98 mmol/L Normal 98-107 [facility] Comment on above: Performed By: #### C BC #### [facility] [address] [place] [address] Dr. Narciso Amaral CO2 [Moles/Vol] 27.3 mmol/L Normal 22.0-30.0 [facility] Comment on above: Performed By: #### C BC #### [facility] [address] [place] [address] Dr. Narciso Amaral Creatinine [Mass/Vol] 0.55 mg/dL Normal 0.52-1.04 [facility] Comment on above: Performed By: #### C BC #### [facility] [address] [place] [address] Dr. Naricso Amaral EGFR-AF PORTUGUESE >60 Normal >=60 [facility] Comment on above: Performed By: #### C BC #### [facility] [address] [place] [address] Dr. Narciso Amaral EGFR-NON AF PORTUGUESE >60 Normal >=60 [facility] Comment on above: Performed By: #### C BC #### [facility] [address] [address] [address] Narciso Amaral Globulin (S) [Mass/Vol] 4.7 g/dL Normal [facility] Comment on above: Performed By: #### C BC #### [facility] [address] [address] [address] Narciso Amaral Glucose [Mass/Vol] 87 mg/dL Normal 74-106 [facility] Comment on above: Performed By: #### C BC #### [facility] [address] [place] [address] Dr. Narciso Amaral Potassium [Moles/Vol] 3.1 mmol/L Critically low 3.4-5.0 [facility] Comment on above: Performed By: #### C BC #### [facility] [address] [place] [address] Dr. Narciso Amaral Protein [Mass/Vol] 9.3 g/dL Critically high 6.1-8.2 [facility] Comment on above: Performed By: #### C BC #### [facility] [address] [place] [address] Dr. Narciso Amaral Sodium [Moles/Vol] 137 mmol/L Normal 137-145 [facility] Comment on above: Performed By: #### C BC #### [facility] [address] [address] [address] Narciso Amaral Urea nitrogen [Mass/Vol] 11.0 mg/dL Normal 7.0-17.0 [facility] Comment on above: Performed By: #### C BC #### [facility] [address] [place] [address] Dr. Narciso Amaral Urea nitrogen/Creatinine [Mass ratio] 20.0 mg/mg Normal [facility] Comment on above: Performed By: #### C BC #### [facility] [address] [address] [address] Narciso Amaral US PREG TVon 06-17-2021 [...] by: KRISTINA ESTRADA Date: 2021-06-17 17:29 Normal [facility] Vital Signs Date Time Vital Sign Value Performing Clinician Facility 05-31-2023 08:51-0500 Body mass index (BMI) [Ratio] 22.85 kg/m2 Lydia DOLAN Work Phone: [facility] 05-31-2023 08:51-0500 Body weight 60.38 kg Lydia DOLAN Work Phone: [facility] 05-31-2023 08:51-0500 Diastolic blood pressure 66 mm[Hg] Lydia DOLAN Work Phone: [facility] 05-31-2023 08:51-0500 Systolic blood pressure 102 mm[Hg] Lydia DOLAN Work Phone: [facility] 01-03-2023 20:48-0400 Diastolic blood pressure 66 mm[Hg] Kemal Sharma [facility] 01-03-2023 20:48-0400 Heart rate 68 /min Kemal Sharma [facility] 01-03-2023 20:48-0400 Respiratory rate 18 /min Kemal Sharma [facility] 01-03-2023 20:48-0400 SaO2% (BldA) [Mass fraction] 99 % Kemal Zachary [facility] 01-03-2023 20:48-0400 Systolic blood pressure 110 mm[Hg] Kemal Zachary [facility] 01-03-2023 19:55-0400 Hourly Rounding Kemal Zachary [facility] 01-03-2023 19:53-0400 Diastolic blood pressure 71 mm[Hg] Kemal Zahcary [facility] 01-03-2023 19:53-0400 Heart rate 70 /min Kemal Zachary [facility] 01-03-2023 19:53-0400 Respiratory rate 18 /min Kemal Zachary [facility] 01-03-2023 19:53-0400 SaO2% (BldA) [Mass fraction] 99 % Kemal Zachary [facility] 01-03-2023 19:53-0400 Systolic blood pressure 106 mm[Hg] Kemal Zachary [facility] 01-03-2023 18:55-0400 Diastolic blood pressure 74 mm[Hg] Kemal Zachary [facility] 01-03-2023 18:55-0400 Heart rate 74 /min Kemal Zachary [facility] 01-03-2023 18:55-0400 Hourly Rounding Kemal Zachary [facility] 01-03-2023 18:55-0400 Respiratory rate 16 /min Kemal Zachary [facility] 01-03-2023 18:55-0400 SaO2% (BldA) [Mass fraction] 99 % Kemal Zachary [facility] 01-03-2023 18:55-0400 Systolic blood pressure 108 mm[Hg] Kemal Zachary [facility] 01-03-2023 17:55-0400 Hourly Rounding Kemal Sharma [facility] 01-03-2023 17:55-0400 Promise to Return Kemal Zachary [facility] 01-03-2023 16:55-0400 Body temperature 98.06 [degF] Kemal Sharma [facility] 08-25-2021 20:06-0400 Body weight 51.[address] TONI WATKINS [facility] Comment on above: Performed By: #### CBC #### [facility] [address] [place] [address] Dr. Narciso Amaral Encounters Encounter Date Encounter Type Care Provider Facility Start: 05-31-2023 End: 05-31-2023 ambulatory LYDIA GALLO Not Available Start: 05-31-2023 End: 05-31-2023 flow sheet Lydia DOLAN Work Phone: [facility] Comment on above: Third trimester preg jordana Start: 05-06-2023 End: 05-06-2023 ambulatory TONI TRES Not Available Start: 04-28-2023 End: 04-29-2023 ambulatory LYDIA GALLO [facility] Start: 04-28-2023 End: 04-28-2023 Subsequent hospital visit by physician [facility] Start: 04-12-2023 End: 04-12-2023 ambulatory LYDIA GALLO Not Available Start: 03-08-2023 End: 03-08-2023 ambulatory TONI TRES Not Available Start: 01-03-2023 End: 01-03-2023 Emergency department patient visit Kemal Sharma Facility:[facility] Start: 01-03-2023 End: 01-03-2023 Emergency department patient visit Kemal Sharma [facility] Start: 01-21-[address] TONI WATKINS Facility [...] [facility] [address] [place] [address] Toni Watkins, [address] [place] [address] [facility] Start: 05-31-2023 End: 05-31-2023 Patient encounter procedure 05/31/2023 12:30 PM EST Routine [facility] [place] [facility] [address] [address] [facility] Start: 05-04-2023 End: 05-04-2023 Patient encounter procedure 05/04/2023 1:30 PM EST Routine [facility] [address] [facility] [address] [place] [address] [facility] Start: 11-24-2022 Influenza vaccination Flu vaccine (# 1) [facility] Start: 12-25-2021 Influenza vaccination Flu vaccine (# 1) [facility] Start: 2017 Screening for malign ant neoplasm of cervix Pap smear [facility] Start: 08-01-2015 DTaP/Tdap/Td vaccine (1 - Tdap) DTaP/Tdap/Td vaccine (1 - Tdap) [facility] Start: 2014 Hepatitis C screening Hepatitis C sc reen [facility] Start: 08-01-2011 HIV screening HIV screen [facility] Start: 2008 Depression Screen Depression Screen [facility] Start: 08-01-2007 HPV vaccine (1 - 2-d ose series) HPV vaccine (1 - 2-dose series) [facility] Start: 2001 COVID-19 Vaccine (1) COVID-19 Vaccin e (1) [facility] Start: 1997 Varicella vaccine (1 of 2 - 2-dose childhood series) Varicella vaccine (1 of 2 - 2-dose childhood series) [facility] Start: 01-30-1997 COVID-19 Vaccine (#1) COVID-19 Vacci ne (#1) [facility] Start: 1996 Hepatitis B vaccine (1 of 3 - 3-dose series) Hepatitis B vaccine (1 of 3 - 3-dose series) [facility] Payers Date Payer Category Payer Unknown 1996 Unknown [id number] 2.16.84 [id number] 1996 Unknown [id number] 2.16.84 0.1.597714.3.579.2.593 1996 Unknown [id number] 2.16.84 0.1.336112.3.579.2.593 1996 Unknown [id number] 2.16.84 0.1.836639.3.579.2.593 1996 Unknown [id number] 2.16.84 0.1.927310.3.579.2.593 1996 Unknown [id number] 2.16.84 0.1.438190.3.579.2.593 1996 Unknown [id number] 2.16.84 0.1.090923.3.579.2.593 1996 Unknown [id number] 2.16.84 0.1.371360.3.579.2.593 1996 Unknown [id number] 2.16.84 0.1.158313.3.579.2.593 1996 Unknown [id number] 2.16.84 0.1.383155.3.579.2.593 1996 Unknown [id number] 2.16.84 0.1.267288.3.579.2.593 1996 Unknown [id number] 2.16.84 0.1.442939.3.579.2.593 1996 Unknown [id number] 2.16.84 0.1.371950.3.579.2.593 1996 Unknown [id number] 2.16.84 0.1.364644.3.579.2.593 1996 Unknown [id number] 2.16.84 0.1.404911.3.579.2.593 1996 Unknown [id number] 2.16.84 0.1.069120.3.579.2.593 1996 Unknown [id number] 2.16.84 0.1.158168.3.579.2.593 1996 Unknown [id number] 2.16.8 40.1.531853.3.579.2.727 1996 Unknown [id number] 2.16.8 40.1.154040.3.579.2.174 1996 Unknown [id number] 2.16.84 0.1.908364.3.579.2.1259 1996 Unknown [id number] 2.16.84 0.1.387234.3.579.2.1259 1996 Unknown [id number] 2.16.840 .1.074839.3.579.2.1259 1996 Unknown [id number] 2.16.840. 1.782843.3.579.2.1259 1959 Self-pay [id number] Self-pay 1959 Unknown [id number] [id number] Unknown [id number] 2.16.84 0.1.538012.3.579.2.593 Social History Date Type Detail Facility Tobacco smoking status NHIS Tobacco smoking consumption unknown [employer] Work Phone: Start: 1996 Sex Assigned At Not on file [employer] Work Phone: Start: 04-05-2021 End: 04-07-2023 Tobacco smoking status Never smoked tobacco (finding) [facility] Tobacco smoking status Never [facility] Start: 04-20-2023 Sex Assigned At Female [facility] Start: 04-07-2023 Tobacco use and exposure Smokeless tobacco non-user [employer] Start: 04-20-2023 Alcohol intake Lifetime non-d jay (finding) [employer] Start: 04-20-2023 History of Social function [employer] Start: 11-12-2022 [facility] [employer] NEGATED: Highlighted rowStart: NINF History of tobacco use Passive smoker [employer] Functional Status Date Assessment Result Facility 01-03-2023 Functional Status N/A [facility] History of Present illness Narrative 05-31-2023 [...] and states received a steroid while in [place] for shortened cervix. Pt to have nst [...] of: MAGDALENO Garsia documented in this encounter [facility] Hospital Discharge instructions 01-03-2023 Note Date & Type Note Facility 01-03-2023 Hospital Discharg e instructions Patient Education 01/03/2023 20:50:05 Morning Sickness, [id number] Morning Sickness Morning sickness is when you [...] Follow these instructions at home: Medicines Take dawx-gjf-oxtxkag and prescription medicines only as told by [...] provider. Document Revised: 11/25/2020 Document Reviewed: 11/04/2020 [employer] Patient Education 2022 [email or web address] Follow Up Care 01/03/2023 16:18:17 With:Toni WATKINS Address: [address] , [place] [address]- Business (1) When:01/06/2023 20:40:46 [facility] Evaluation + Plan note 01-03-2023 Note Date [...] discharged home with instructions to follow with ACCOUNTING RECONCILIATION CLERK and is to return to the ED with any new or worsening symptoms. Patient voices understanding is agreeable to plan [facility] Evaluation note Note Date & Type Note Facility Evaluation note Diagnosis Third trimester state, incidental documented in this encounter [facility] Hospital course Narrative Note Date & Type Note Facility Hospital course Narrative No data available for this section [facility] Progress note Note Date & Type Note Facility Progress note No data available for this section [facility] Summary Purpose Family History No Family History Records FoundNo Family History Records FoundNo Family History Records FoundNo Family History Records Found Advance Directives No Advanced Directives Records FoundNo Advanced Directives Records FoundNo Advanced Directives Records FoundNo Advanced Directives Records Found Additional Source Comments INFORMATION SOURCE (unrecogn ized section and content) DATE CREATED AUTHOR 01/21/2022 [facility] DATE CREATED AUTHOR AUTHOR'S ORGANIZ ATION 01/07/2023 [facility] DATE CREATED AUTHOR AUTHOR'S ORGANIZ ATION 04/29/2023 Nancy Rodriguez [facility] DATE CREATED AUTHOR AUTHOR'S ORGANIZ ATION 05/31/2023 [facility] [employer] Patient Care team informatio n (unrecognized section and content) Personnel Name: Gloria CASTELLANOS CNP Address: Address: [address] [place] [address] Dr. Blake, [facility] Reason for Visit (unrecogniz ed section [...] BE BASED ON THE PRIMARY CLINICAL RECORDS. [facility] [address] [facility]. provides no warranty or guarantee of the accuracy or completeness of information in this document.
== END 2023-06-14 11:05 | disposition home or self-care (01) ==
LOC: US 07:37 → FBC 09:56
PROVIDERS: Visit Provider Obstetrics & Gynecology
DX: Z36.86 Encounter for antenatal screening for cervical length (principal); Z3A.32 32 weeks gestation of pregnancy
CPT/HCPCS: 76817; 76818

== ENCOUNTER 2023-06-28 07:35 | Outpatient (OUT) | payer BC, SELFPAY ==
--- OUTSIDE RECORDS SUMMARY | 2023-06-28 08:10 | XMS_ITS | CCD ---
Author Name Unknown Address [id number] [place] [address] Organization [facility] Care Team Providers Care Floor Molder Name Role Phone Unavailable Primary Care Provider [...] Admitting Unavailable TRES, DR MUÑOZ Consulting Unavailable RTES, DR MUÑOZ Attending Unavailable REQUEST, NONE LISTED [...] TRES, DR MUÑOZ Consulting Unavailable REQUEST, DR NONE LISTED Referring Unavaila ble TRES, DR MUÑOZ Attending Unavailable TRES, DR MUÑOZ Attending Unavailable REQUEST, NONE LISTED Primary Care Unavaila ble TRES, DR MUÑOZ Admitting Unavailable Gloria CASTELLANOS Primary Care Physician Kemal Sharma Attending Unavailable Unavailable Primary Care Provider UnavailLYDIA Liao Referring Unavailable Unavailable Primary Care Provider UnavailTONI Min Attending Unavailable LYDIA GALLO Attending Unavailable TRESTONI CHRISTINA Attending Unavailable TRESTONI Choi Attending Unavailable LYDIA GALLO Attending Unavailable Allergies Allergy Classification Reported Allergen(s) Allergy Type Date of Onset Reaction(s) Facility (2 sources) Amoxicillin; Translations: [amoxicillin] Drug Allergy 2 [facility] Repository (3 sources) Amoxicillin; Translations: [amoxicillin] Drug Allergy 3 rash [facility] Medicine Bruni (1 source) Penicillins Propensity to adverse reactions [...] hours., # 16 tab(s), Refills(s) 1, Pharmacy: [id number], 168, cm, 04/09/20 15:23:00 EST, Height/Length Dosing, 50.7, kg, 04/09/20 15:23:00 EST, Weight Dosing Start Date: 04/09/20 Status: Ordered Zofran ODT 4 mg Tab-Dis (1 source) Start: 06-09-2021 take 1 tablet by mouth every six hours as needed for nausea Zofran ODT 4 mg Tab-Dis 4 mg = 1 tab(s), Oral, q6hr, PRN Nausea/Vomiting, # 12 tab(s), Refills(s) 0, Pharmacy: [facility], 165.1, cm, 06/09/21 2:43:00 EST, Height/Length [...] applicable or unspecified; Translations: [MAT CARE OTH PA FTL GRTH 3RD TM UNS] Onset: 12-31-2021 [...] Differentialon 04-28-2023 Basophils (Bld) [#/Vol] 0.03 10*3/uL [facility] Basophils/100 WBC (Bld) 1 % 0 - 2 % [facility] Eosinophils (Bld) [#/Vol] 0.04 10*3/uL [facility] Eosinophils/100 WBC (Bld) 1 % 0 - 5 % [facility] Erythrocyte distribution width (RBC) [Ratio] 11.8 % Low 12.1 - 15.2 % [facility] Hematocrit (Bld) [Volume fraction] 35.4 % Low 36.0 - 46.0 % [facility] Hemoglobin (Bld) [Mass/Vol] 11.9 g/dL Low 12.0 - 16.0 g/dL [facility] Immature granulocytes (Bld) [#/Vol] 0.04 10*3/uL [facility] Immature granulocytes/100 WBC (Bld) 1 % 0 - 5 % [facility] Interpretation and review of laboratory results Abnormal [facility] Lymphocytes/100 WBC (Bld) 24 % 15 - 40 % [facility] Lymphocytes/100 WBC (Bld) 1.53 % [facility] MCH (RBC) [Entitic mass] 32.9 pg 26.0 - 34.0 pg [facility] MCHC (RBC) [Mass/Vol] 33.6 g/dL 31.0 - 37.0 g/dL [facility] MCV (RBC) [Entitic vol] 97.8 fL 80.0 - 100.0 fL [facility] Monocytes/100 WBC (Bld) 6 % 4 - 8 % [facility] Monocytes/100 WBC (Bld) 0.41 % [facility] WBC other (Bld) [#/Vol] 6.4 [facility] CBC with Diffon 04-28-2023 Abs. Basophil 0.03 k/uL Normal 0.00-0.20 [facility] Comment on above: Performed By: #### C DP, GLUSC #### [facility] Lab [address] [place] [address] Space Scheduler: Greg Castillo MD Abs.Imm.Granulocyte 0.04 k/uL Normal 0.00-0.30 [facility] Comment on above: Performed By: #### C DP, GLUSC #### [facility] Lab [address] [place] [address] Space Scheduler: Greg Castillo MD Abs.Neutrophil (Seg) 4.37 k/uL Normal 2.5-7.0 [facility] Comment on above: Performed By: #### C DP, GLUSC #### [facility] Lab [address] [place] [address] Space Scheduler: Greg Castillo MD Basophils/100 WBC (Bld) 1 % Normal 0-2 [facility] Comment on above: Performed By: #### C DP, GLUSC #### [facility] Lab [address] [place] [phone] Space Scheduler: Greg Castillo MD Eosinophils (Bld) [#/Vol] 0.04 10*3/uL Normal 0.00-0.40 [facility] Comment on above: Performed By: #### C DP, GLUSC #### [facility] Lab [address] [place], [place] [phone] Space Scheduler: Greg Castillo MD Eosinophils/100 WBC (Bld) 1 % Normal 0-5 [facility] Comment on above: Performed By: #### C DP, GLUSC #### [facility] Lab [address] [place] [phone] Space Scheduler: Greg Castillo MD Erythrocyte distribution width (RBC) [Ratio] 11.8 % Low 12.1-15.2 [facility] Comment on above: Performed By: #### C DP, GLUSC #### [facility] Lab [address] [place] [phone] Space Scheduler: Greg Castillo MD Hematocrit (Bld) [Volume fraction] 35.4 % Low 36.0-46.0 [facility] Comment on above: Performed By: #### C DP, GLUSC #### [facility] Lab [address] [place] [phone] Space Scheduler: Greg Castillo MD Hemoglobin (Bld) [Mass/Vol] 11.9 g/dL Low 12.0-16.0 [facility] Comment on above: Performed By: #### C DP, GLUSC #### [facility] Lab [address] [place] [phone] Space Scheduler: Greg Castillo MD Immature granulocytes/100 WBC (Bld) 1 % Normal 0-[address] [place] [address] Comment on above: Performed By: #### C DP, GLUSC #### [facility] Lab [address] [place] [phone] Space Scheduler: Greg Castillo MD Lymphocytes (Bld) [#/Vol] 1.53 10*3/uL Normal 1.00-4.80 [facility] Comment on above: Performed By: #### C DP, GLUSC #### [facility] Lab [address] [place] [phone] Space Scheduler: Greg Castillo MD Lymphocytes/100 WBC (Bld) 24 % Normal 15-40 [facility] Comment on above: Performed By: #### C DP, GLUSC #### [facility] Lab [address] [place] [phone] Space Scheduler: Greg Castillo MD MCH (RBC) [Entitic mass] 32.9 pg Normal 26.0-34.0 [facility] Comment on above: Performed By: #### C DP, GLUSC #### [facility] Lab [address] [place] [address] Space Scheduler: Greg Castillo MD MCHC (RBC) [Mass/Vol] 33.6 g/dL Normal 31.0-37.0 [facility] Comment on above: Performed By: #### C DP, GLUSC #### [facility] Lab [address] [place] [phone] Space Scheduler: Greg Castillo MD MCV (RBC) [Entitic vol] 97.8 fL Normal 80.0-100.0 [facility] Comment on above: Performed By: #### C DP, GLUSC #### [facility] Lab [address] [place] [address] Space Scheduler: Greg Castillo MD Monocytes (Bld) [#/Vol] 0.41 10*3/uL Normal 0.00-1.00 [facility] Comment on above: Performed By: #### C DP, GLUSC #### [facility] Lab [address] [place] [phone] Space Scheduler: Greg Castillo MD Monocytes/100 WBC (Bld) 6 % Normal 4-8 [facility] Comment on above: Performed By: #### C DP, GLUSC #### [facility] Lab [address] [place], [place] [phone] ([phone]) Space Scheduler: Greg Castillo MD Neutrophil (Seg) 67 % Normal 47-75 [facility] Comment on above: Performed By: #### C DP, GLUSC #### [facility] Lab [address] [place], [place] [phone] ([phone]) Space Scheduler: Greg Castillo MD Platelet mean volume (Bld) [Entitic vol] 9.5 fL Normal 6.0-12.0 [facility] Comment on above: Performed By: #### C DP, GLUSC #### [facility] Lab [address] [place], [place] [phone] (810) Space Scheduler: Greg Castillo MD Platelets (Bld) [#/Vol] 155 10*3/uL Normal 140-450 [facility] Comment on above: Performed By: #### C DP, GLUSC #### [facility] Lab [address] [place], [place] [phone] ([phone]) Space Scheduler: Greg Castillo MD RBC (Bld) [#/Vol] 3.62 10*6/uL Low 4.00-5.20 [facility] Comment on above: Performed By: #### C DP, GLUSC #### [facility] Lab [address] [place], [place] [phone] (146) Space Scheduler: Greg Castillo MD WBC (Bld) [#/Vol] 6.4 10*3/uL Normal 3.5-11.0 [facility] Comment on above: Performed By: #### C DP, GLUSC #### [facility] Lab [address] [place], [place] [phone] (668) Space Scheduler: Greg Castillo MD Glucose David Scr 50gon 2023 Glucose [Mass/Vol] 108 mg/dL Normal 70-135 [facility] Comment on above: Performed By: #### C DP, GLUSC #### [facility] Lab [address] [place] [address] Space Scheduler: Greg Castillo MD Glu Administered via Glucola [facility] Comment on above: Performed By: #### C DP, GLUSC #### [facility] Lab [address] [place] [address] Space Scheduler: Greg Castillo MD Glucose tolerance, 1 houron 04-28-2023 GLU ADMN Glucola [facility] Glucose 1 Hr post 50 g glucose PO [Mass/Vol] 108 mg/dL 70 - 135 mg/dL [facility] Discharge Instructionson Discharge Instructions [id number]#1.00CD:127 Normal [facility] Auto Diffon 01-03-2023 Basophils/100 WBC (Bld) 0.5 % Normal 0.0-2.0 [facility] Comment on above: Order Comment: Order Added by Discern Expert. Performed By: #### 2 692544, [id number], [id number], [id number] #### [facility] Laboratory [address] [place] [address] Basophils/Leukocytes Auto (Bld) [Pure # fraction] 0.0 E9/L Normal 0.0-0.2 [facility] Comment on above: Order Comment: Order Added by Discern Expert. Performed By: #### 2 708540, 7899459, [id number], [id number] #### [facility] Laboratory [address] [place] [address] Eosinophils/100 WBC (Bld) 0.3 % Normal 0.0-8.0 [facility] Comment on above: Order Comment: Order Added by Discern Expert. Performed By: #### 2 952151, 9836281, 75323651, 3418202 #### [facility] [address] [place] [address] Eosinophils/Leukocyte s Auto (Bld) [Pure # fraction] 0.0 E9/L Normal 0.0-0.5 [facility] Comment on above: Order Comment: Order Added by Discern Expert. Performed By: #### 2 186739, 6796298, 49370715, 0068214 #### [facility] [address] [place] [address] Lymphocytes/100 WBC (Bld) 29.1 % Normal 14.0-50.0 [facility] Comment on above: Order Comment: Order Added by Discern Expert. Performed By: #### 2 996729, 1976526, 11253594, 5755849 #### [facility] [address] [place] [address] Lymphocytes/Leukocyte s Auto (Bld) [Pure # fraction] 1.7 E9/L Normal 1.0-4.0 [facility] Comment on above: Order Comment: Order Added by Kya Expert. Performed By: #### 2 265255, 6505914, 20846079, 5982341 #### [facility] [address] [place] [address] Monocytes/100 WBC (Bld) 5.1 % Normal 4.0-14.0 [facility] Comment on above: Order Comment: Order Added by Kya Expert. Performed By: #### 2 902659, 5098812, 29808642, 2953456 #### [facility] [address] [place] [address] Monocytes/Leukocytes Auto (Bld) [Pure # fraction] 0.3 E9/L Normal 0.2-1.0 [facility] Comment on above: Order Comment: Order Added by Discern Expert. Performed By: #### 2 106519, 2485302, 49796046, 0792108 #### [facility] [address] [place] [address] Neutrophils/100 WBC (Bld) 65.0 % Normal 36.0-75.0 [facility] Comment on above: Order Comment: Order Added by Kya Expert. Performed By: #### 2 441858, 0663301, 85596237, 2242723 #### [facility] [address] [place] [address] Neutrophils/Leukocyte s Auto (Bld) [Pure # fraction] 3.8 E9/L Normal 2.0-7.5 [facility] Comment on above: Order Comment: Order Added by Discern Expert. Performed By: #### 2 382318, 0781790, 81139312, 0872459 #### [facility] [address] [place] [address] BMPon 01-03-2023 Creatinine [Mass/Vol] 0.5 mg/dL Normal 0.5-1.3 [facility] Comment on above: Performed By: #### 2 628154, 4785369, 29857493, 8426157 #### [facility] [address] [place] [address] Urea nitrogen [Mass/Vol] 8 mg/dL Normal 5-21 [facility] Comment on above: Performed By: #### 2 023663, 2322752, 92359417, 7490126 #### [facility] [address] [place] [address] Urea nitrogen/Creatinine [Mass ratio] 16 No Units Normal 10-20 [facility] Comment on above: Performed By: #### 2 469152, 9299407, 82368044, 5547232 #### [facility] [address] [place] [address] Anion gap [Moles/Vol] 7 mmol/L Normal 6-16 [facility] Comment on above: Performed By: #### 2 780961, 6478133, 48549661, 1123241 #### [facility] [address] [place] [address] Calcium [Mass/Vol] 9.3 mg/dL Normal 8.9-11.1 [facility] Comment on above: Performed By: #### 2 370619, 7567688, 78658653, 3794190 #### [facility] [address] [place] [address] Chloride [Moles/Vol] 105 mmol/L Normal 101-111 [facility] Comment on above: Performed By: #### 2 299343, 6760192, 23201206, 2148223 #### [facility] [address] [place] [address] CO2 [Moles/Vol] 24 mmol/L Normal 21-31 [facility] Comment on above: Performed By: #### 2 374769, 8616074, 38039768, 0491272 #### [facility] [address] [place] [address] Glucose [Mass/Vol] 108 mg/dL Normal 55-199 [facility] Comment on above: Result Comment: If t his glucose result represents a fasting glucose, interpretation should refer to the following reference range: 55-99 mg/dL Performed By: #### 2 964464, 2785311, 63982075, 8358542 #### [facility] [address] [place] [address] Potassium [Moles/Vol] 3.4 mmol/L Low 3.5-5.3 [facility] Comment on above: Performed By: #### 2 314026, 0695608, 12098260, 0495174 #### [facility] [address] [place] [address] Sodium [Moles/Vol] 133 mmol/L Low 135-145 [facility] Comment on above: Performed By: #### 2 197378, 2791917, 49136751, 4928693 #### [facility] [address] [place] [address] CBC w/ Auto Diffon 3 Erythrocyte distribution width (RBC) [Ratio] 12.5 % Normal 10.9-14.2 [facility] Comment on above: Performed By: #### 2 068139, 5055688, 47474196, 3584366 #### [facility] [address] [place] [address] Hematocrit (Bld) [Volume fraction] 39.8 % Normal 34.0-46.0 [facility] Comment on above: Performed By: #### 2 164701, 6587583, 90827094, 6588945 #### [facility] [address] [place] [address] Hemoglobin (Bld) [Mass/Vol] 14.2 g/dL Normal 12.0-16.0 [facility] Comment on above: Performed By: #### 2 459636, 9210020, 43310692, 7248524 #### [facility] [address] [place] [address] MCH (RBC) [Entitic mass] 31.7 pg Normal 27.0-34.0 [facility] Comment on above: Performed By: #### 2 226298, 1122879, 77891854, 9237806 #### [facility] [address] [place] [address] MCHC (RBC) [Mass/Vol] 35.6 g/dL Normal 31.4-36.0 [facility] Comment on above: Performed By: #### 2 362992, 6077364, 49266907, 0903638 #### [facility] [address] [place] [address] MCV (RBC) [Entitic vol] 89.0 fL Normal 80.0-100.0 [facility] Comment on above: Performed By: #### 2 335522, 7805194, 18154408, 3061768 #### [facility] [address] [place] [address] Platelet mean volume (Bld) [Entitic vol] 7.6 fL Normal 6.4-10.8 [facility] Comment on above: Performed By: #### 2 456359, 9119842, 48872140, 3651687 #### [facility] [address] [place] [address] Platelets (Bld) [#/Vol] 170.0 E9/L Normal 150.0-500.0 [facility] Comment on above: Performed By: #### 2 054321, 1595445, 75567949, 5467655 #### [facility] [address] [place] [address] RBC (Bld) [#/Vol] 4.5 E12/L Normal 4.3-5.9 [facility] Comment on above: Performed By: #### 2 554920, 1960332, 00404402, 8964354 #### [facility] [address] [place] [address] WBC corrected for nucl RBC Auto (Bld) [#/Vol] 5.8 E9/L Normal 4.0-11.0 [facility] Comment on above: Performed By: #### 2 840722, 2723210, 83961271, 8893943 #### [facility] [address] [place] [address] CHEMISTRYOrdered By: SYSTEM SYSTEM on 01-03-2023 Anion gap [Moles/Vol] 7 mmol/L Normal 6 - 16 mEq/L F [facility] Remisol Calcium [Mass/Vol] 9.3 mg/dL Normal 8.9 - 11. 1 mg/dL [facility] Chloride [Moles/Vol] 105 mmol/L Normal 101 - 1 11 mmol/L [facility] CO2 [Moles/Vol] 24 mmol/L Normal 21 - 31 mmol/L [facility] Creatinine [Mass/Vol] 0.5 mg/dL Normal 0.5 - 1.3 mg/dL [facility] GFR/1.73 sq M.predicted among non-blacks MDRD (S/P/Bld) [Vol rate/Area] 133 mL/min/1.73 m2 Normal >=59mL/min/1. 73 m2 [facility] S Glucose [Mass/Vol] 108 mg/dL [...] Treatmenton 12-25 Consent for Treatment [id number] #1.00CD:127 Normal [facility] ED Clinical Summaryon 2022 ED Clinical Summary [place] [id number] ED Clinical Summary Person Information Name: GRACIELA OLIVAREZ [place] Age: 27 Years : 1995 Sex: Female Language: Tajik PCP: Gloria CASTELLANOS CNP Marital Status: Visit [...] 01/03/2023 20:50:04 01/03/2023 20:50:04 01/03/2023 20:50:04 ADDRESS: [address] [place] [id number] [facility] DOC NOTES: MEDICAL INFORMATION: Prescriptions Given: Medications to Continue with No Changes Other Medications ondansetron (Zofran ODT 4 mg Tab-Dis) 1 Tablets By Mouth every 6 hours as needed Nausea/Vomiting. Refills: 0. valacyclovir (valacyclovir 1 g Tab) take 2 tab at first sign of cold sore repeat in 12 hours.. Refills: 1. PATIENT EDUCATION INFORMATION: Instructions: Morning Sickness, Joka-vk-Petp Follow up: With: Address: When: Toni WATKINS [facility], [address] [place] [address] [place] [address] Business (1) In 3 days 01/06/2023 DIAGNOSIS: Nausea/vomiting in Normal [facility] ED Note-Physicianon 01-04-20 ED Note-Physician Basic [...] she is dehydrated. Patient is followed by [facility], Dr. Watkins, has had an ultrasound which [...] discharged home with instructions to follow with [facility] and is to return to the ED [...] Toni WATKINS In 3 days 01/06/[address] [place] [address]- Business (1) Additional Instructions: Patient Education Morning Sickness, Uubq-am-Vbep Attestation Patient was treated and evaluated by the Physician Scientific Director. The attending physician was in the Emergency [...] is unknown (more content not included)... Normal [facility] Comment on above: Result Comment: Elec [...] these instructions at home: Medicines ? Take hpze-doq-kaadhpp and prescription medicines only as told by [...] Reviewed: 11/04/2020 Elsevier Patient Education ? 2022 [employer] Normal [facility] ED Patient Summaryon 023 ED Patient Summary [address] [address] Patient Discharge Instructions Person Information Name: GRACIELA OLIVAREZ Age: 27 Years Arrival Date: 01/03/2023 16:15:39 Discharge Diagnosis: Nausea/vomiting in Primary Care Physician: Gloria CASTELLANOS CNP Provider Information Primary Provider: Kemal Sharma DO Advanced Bpm Solution Architect:Velia Correa PA-C The exam and treatment you received in the Emergency Department were for an urgent problem and are not intended as complete care. It is important that you follow up with a doctor, nurse practitioner, or physician?s automotive parts counter assistant for ongoing care. If your symptoms [...] Follow-up Instructions: With: Address: When: Toni WATKINS [facility], [address] [place] [address] [place] [address] Business (1) In 3 days 01/06/2023 In the event that this physician does not participate in your insurance network, please consult with your insurance company to find a nearby participating provider. Patient Education Materials: Morning Sickness, Xwps-fr-Ycet A MESSAGE TO ALL PATIENTS REGARDING OPIOIDS PRESCRIPTION OPIOIDS: WHAT YOU NEED TO KNOW Prescription opioids can be used to help relieve kphfgkvt-yr-pqywpb pain and are often prescribed following a [...] be struggling with addiction, tell your health morning caregiver and ask for guidance or call [facility]?S National [employer] (more content not included)... Normal [facility] HEMATOLOGYOrdered By: SYSTEM SYSTEM on 01-03-2023 [...] 65.0 % Normal 36.0 - 75.0 % [facility] Neutrophils/Leukocyte s Auto (Bld) [Pure # fraction] 3.8 E9/L Normal 2.0 - 7.5 E9/L [facility] HEMATOLOGYOrdered By: Grover Miranda on 01-03-2023 Erythrocyte distribution width (RBC) [Ratio] 12.5 % Normal 10.9 - 14.2 % [facility] Hematocrit (Bld) [Volume fraction] 39.8 % Normal 34.0 - 46.0 % [facility] Hemoglobin (Bld) [Mass/Vol] 14.2 g/dL Normal 12.0 - 16.0 gm/dL [facility] MCH (RBC) [Entitic mass] 31.7 pg Normal 27.0 - 34.0 pg [facility] MCHC (RBC) [Mass/Vol] 35.6 g/dL Normal 31.4 - 36.0 gm/dL [facility] MCV (RBC) [Entitic vol] 89.0 fL Normal 80.0 - 100.0 fL [facility] Platelet mean volume (Bld) [Entitic vol] 7.6 fL Normal 6.4 - 10.8 fL [facility] Platelets (Bld) [#/Vol] 170.0 E9/L Normal 150.0 - 500.0 E9/L [facility] RBC (Bld) [#/Vol] 4.5 E12/L Normal 4.3 - 5.9 E12/L [facility] WBC corrected for nucl RBC Auto (Bld) [#/Vol] 5.8 E9/L Normal 4.0 - 11.0 E9/L [facility] UA With Cult Reflexon 2022 Bilirubin Ql (U) 1+ Abnormal Negative [facility] Comment on above: Performed By: #### 1 [id number] #### [facility] [address] [place] [address] Clarity (U) CLEAR Normal Clear [facility] Comment on above: Performed By: #### 1 [id number] #### [facility] [address] [place] [address] Color (U) YELLOW Normal Yellow [facility] Comment on above: Performed By: #### 1 [id number] #### [facility] [address] [place] [address] Epithelial cells.squamous LM.HPF (Urine sed) [#/Area] 3-4 Normal 0-2 [facility] Comment on above: Performed By: #### 1 [id number] #### [facility] [address] [place] [address] Glucose Test strip (U) [Mass/Vol] Negative Normal Negative [facility] Comment on above: Performed By: #### 1 [id number] #### [facility] [address] [place] [address] Hemoglobin Ql (U) 2+ Abnormal Negative [facility] Comment on above: Performed By: #### 1 [id number] #### [facility] [address] [place] [id number] Ketones (U) [Mass/Vol] 2+ Abnormal Negative [facility] Comment on above: Performed By: #### 1 [id number] #### [facility] [address] [place] [address] [place].plasma/Lithiu m.RBC (Bld) [Mass ratio] 0-3 Normal 0-3 [facility] Comment on above: Performed By: #### 1 [id number] #### [facility] [address] [place] [address] Mucus Ql (Urine sed) 2+ Normal [facility] Comment on above: Performed By: #### 1 [id number] #### [facility] [address] [place] [address] Nitrite Ql (U) Negative Normal Negative [facility] Comment on above: Performed By: #### 1 [id number] #### [facility] [address] [place] [address] pH (U) 6.0 [pH] Invalid Interpretation Code 5.0-9.0 [facility] Comment on above: Performed By: #### 1 [id number] #### [facility] [address] [place] [address] Protein (U) [Mass/Vol] 1+ Abnormal Negative [facility] Comment on above: Performed By: #### 1 [id number] #### [facility] [address] [place] [address] Specific gravity (U) [Rel density] >=1.030 Invalid Interpretation Code 1.005-1.030 [facility] Comment on above: Performed By: #### 1 [id number] #### [facility] [address] [place] [address] Type of Urine collection method Clean Catch Normal [facility] Comment on above: Performed By: #### 1 [id number] #### [facility] [address] [place] [address] Urobilinogen Qn (U) 1.0 {Maggy'U}/dL Normal 0.0-1.0 [facility] Comment on above: Performed By: #### 1 [id number] #### [facility] [address] [place] [address] WBC Auto Ql (U) Negative Normal Negative [facility] Comment on above: Performed By: #### 1 [id number] #### [facility] [address] [place] [address] WBC LM.HPF (Urine sed) [#/Area] 0-5 Normal 0-5 [facility] Comment on above: Performed By: #### 1 [id number] #### [facility] [address] [id number] URINALYSISOrdered By: Dianne Ortiz on 01-03-2023 Bilirubin [...] Interpretation Code Negative [facility] UA Auto SS [place].plasma/Lithiu m.RBC (Bld) [Mass ratio] 0-3 /HPF Normal [...] [facility] UA Auto SS Urobilinogen Qn (U) 1.8191186 {Maggy'U}/dL Normal 0.0 - 1.0 EU/dL [facility] UA Auto SS WBC Auto Ql (U) Negative (01/03/23 5:04 PM) Normal Negative [facility] UA Auto SS WBC LM.HPF (Urine sed) [#/Area] 0-5 /HPF Normal 0-5/HPF [facility] UA Auto SS eGFRon 01-03-2023 GFR/1.73 sq M.predicted among non-blacks MDRD (S/P/Bld) [Vol rate/Area] 133 mL/min/1.73 m2 Normal >=59 [facility] Comment on above: Order Comment: Order added by Discern Expert. Result Comment: Coil Winding Supervisor diya kidney disease could be indicated at eGFR's of less than 60 mL/min/1.73m2. Kidney failure is indicated at less than 15 mL/min/1.73m2. Performed By: #### 2 [id number], [id number] #### [facility] [address] [place] [address] CULTURE URINEon 01-10-2022 CULTURE URINE Culture Observations: MODERATE GROWTH OF MIXED GENITAL RIC. NO POTENTIAL PATHOGENS SEEN. Normal [facility] Comment on above: Performed By: #### U RCX #### [facility] [address] [place] [address] Dr. Narciso Amaral UA (CLEAN/CATCH) PHYSICAL EDUCATION TEACHER/MICRO I F IND.on 01-10-2022 Bilirubin Ql (U) Negative Normal NEGATIVE [facility] Comment on above: Performed By: #### U MICRO, UACSIND #### [facility] [address] [place] [address] Dr. Narciso Amaral Clarity (U) CLEAR Normal CLEAR [facility] Comment on above: Performed By: #### U MICRO, UACSIND #### [facility] [address] [place] [address] Dr. Narciso Amaral Color (U) LT. YELLOW Normal YELLOW [facility] Comment on above: Performed By: #### U MICRO, UACSIND #### [facility] [address] [place] [address] Dr. Narciso Amaral Glucose Ql (U) Negative Normal NEGATIVE [facility] Comment on above: Performed By: #### U MICRO, UACSIND #### [facility] [address] [place] [address] Dr. Narciso Amaral Hemoglobin Ql (U) LARGE Abnormal NEGATIVE [facility] Comment on above: Performed By: #### U MICRO, UACSIND #### [facility] [address] [place] [address] Dr. Narciso Amaral Ketones Ql (U) Negative Normal NEGATIVE [facility] Comment on above: Performed By: #### U MICRO, UACSIND #### [facility] [address] [place] [address] Dr. Narciso Amaral LEUKOCYTES TRACE Abnormal NEGATIVE [facility] Comment on above: Performed By: #### U MICRO, UACSIND #### [facility] [address] [address] [address] Narciso Amaral Nitrite Ql (U) Negative Normal NEGATIVE [facility] Comment on above: Performed By: #### U MICRO, UACSIND #### [facility] [address] [address] [address] Narciso Amaral pH (U) 6.0 [pH] Normal 5-9 [facility] Comment on above: Performed By: #### U MICRO, UACSIND #### [facility] [address] [place] [address] Dr. Narciso Amaral SPEC GRAVITY <=1.005 Abnormal 1.005-<=1.025 [facility] Comment on above: Performed By: #### U MICRO, UACSIND #### [facility] [address] [place] [address] Dr. Narciso Amaral UA PROTEIN Negative Normal NEGATIVE/ TRACE [facility] Comment on above: Performed By: #### U MICRO, UACSIND #### [facility] [address] [place] [address] Dr. Narciso Amaral UR MICRO IND INDICATED Normal [facility] Comment on above: Performed By: #### U MICRO, UACSIND #### [facility] [address] [place] [address] Dr. Narciso Amaral Urobilinogen Qn (U) 0.2 {Maggy'U}/dL Normal 0.2 - 1. 0 [facility] Comment on above: Performed By: #### U MICRO, UACSIND #### [facility] [address] [place] [address] Dr. Narciso Amaral URINE MICROSCOPIC ONLYon BACTERIA SMALL Abnormal NONE SEEN [facility] Comment on above: Performed By: #### U MICRO, UACSIND #### [facility] [address] [place] [address] Dr. Narciso Amaral Bacteria identified Cx Nom (U) INDICATED Normal [facility] Comment on above: Performed By: #### U MICRO, UACSIND #### [facility] [address] [place] [address] Dr. Narciso Amaral CAST NONE SEEN Normal NONE SEEN [facility] Comment on above: Performed By: #### U MICRO, UACSIND #### [facility] [address] [place] [address] Dr. Narciso Amaral Crystals LM Nom (Urine sed) NONE SEEN Normal NONE SEEN [facility] Comment on above: Performed By: #### U MICRO, UACSIND #### [facility] [address] [place] [address] Dr. Narciso Amaral Epithelial cells LM Ql (Urine sed) FEW Abnormal NONE SEEN /RARE [facility] Comment on above: Performed By: #### U MICRO, UACSIND #### [facility] [address] [place] [address] Dr. Narciso Amaral MUCOUS NONE SEEN Normal NONE SEEN [facility] Comment on above: Performed By: #### U MICRO, UACSIND #### [facility] [address] [place] [address] Dr. Narciso Amaral RBC 5-10 Abnormal 0-2 [facility] Comment on above: Performed By: #### U MICRO, UACSIND #### [facility] [address] [place] [address] Dr. Narciso Amaral WBC 0-2 Abnormal NONE SEEN [facility] Comment on above: Performed By: #### U MICRO, UACSIND #### [facility] [address] [place] [address] Dr. Narciso Amaral CBC AUTO DIFFon 01-09-2022 BASO # 0.0 103/ul Normal 0.0-0.1 [facility] Comment on above: Performed By: #### C BC #### [facility] [address] [place] [address] Dr. Narciso Amaral Basophils/100 WBC (Bld) 0.2 % Normal 0.2-2.0 [facility] Comment on above: Performed By: #### C BC #### [facility] [address] [place] [address] Dr. Narciso Amaral EO # 0.0 103/ul Normal 0.0-0.7 [facility] Comment on above: Performed By: #### C BC #### [facility] [address] [place] [address] Dr. Narciso Amaral Eosinophils/100 WBC (Bld) 0.1 % Critically low 0.9-7.0 [facility] Comment on above: Performed By: #### C BC #### [facility] [address] [place] [address] Dr. Narciso Amaral Erythrocyte distribution width (RBC) [Ratio] 12.8 % Normal 11.0-15.0 [facility] Comment on above: Performed By: #### C BC #### [facility] [address] [place] [address] Dr. Narciso Amaral Hematocrit (Bld) [Volume fraction] 30.8 % Critically low 36.0-48.0 [facility] Comment on above: Performed By: #### C BC #### [facility] [address] [place] [address] Dr. Narciso Amaral Hemoglobin (Bld) [Mass/Vol] 10.0 g/dL Critically low 12.0-16.0 [facility] Comment on above: Performed By: #### C BC #### [facility] [address] [place] [address] Dr. Narciso Amaral IG # 0.02 10e3/ul Normal 0.00-0.03 [facility] Comment on above: Performed By: #### C BC #### [facility] [address] [place] [address] Dr. Narciso Amaral IG % 0.2 % Normal 0.0-0.5 [facility] Comment on above: Performed By: #### C BC #### [facility] [address] [place] [address] Dr. Narciso Amaral LYMPH # 1.4 103/ul Normal 1.2-3.8 [facility] Comment on above: Performed By: #### C BC #### [facility] [address] [place] [address] Dr. Narciso Amaral Lymphocytes/100 WBC (Bld) 14.0 % Critically low 20.5-60.0 [facility] Comment on above: Performed By: #### C BC #### [facility] [address] [place] [address] Dr. Narciso Amaral MANUAL DIFF REQ NO Normal [facility] Comment on above: Performed By: #### C BC #### [facility] [address] [place] [address] Dr. Narciso Amaral MCH (RBC) [Entitic mass] 31.7 pg Normal 26.7-34.0 [facility] Comment on above: Performed By: #### C BC #### [facility] [address] [place] [address] Dr. Narciso Amaral MCHC (RBC) [Mass/Vol] 32.5 g/dL Normal 29.9-35.2 [facility] Comment on above: Performed By: #### C BC #### [facility] [address] [place] [address] Dr. Narciso Amaral MCV (RBC) [Entitic vol] 97.8 fL Normal 81.0-99.0 [facility] Comment on above: Performed By: #### C BC #### [facility] [address] [place] [address] Dr. Narciso Amaral MONO # 0.8 103/ul Normal 0.3-0.8 [facility] Comment on above: Performed By: #### C BC #### [facility] [address] [place] [address] Dr. aNrciso Amaral Monocytes/100 WBC (Bld) 8.2 % Normal 1.7-12.0 [facility] Comment on above: Performed By: #### C BC #### [facility] [address] [place] [address] Dr. Narciso Amaral NEUT # 7.9 103/ul Critically high 1.4-6.5 [facility] Comment on above: Performed By: #### C BC #### [facility] [address] [place] [address] Dr. Narciso Amaral Neutrophils/100 WBC (Bld) 77.3 % Critically high 43.0-75.0 [facility] Comment on above: Performed By: #### C BC #### [facility] [address] [place] [address] Dr. Narciso Amaral Platelet mean volume (Bld) [Entitic vol] 9.9 fL Normal 9.5-13.5 [facility] Comment on above: Performed By: #### C BC #### [facility] [address] [place] [address] Dr. Narciso Amaral PLT 143 103/ul Critically low 150-450 [facility] Comment on above: Performed By: #### C BC #### [facility] [address] [place] [address] Dr. Narciso Amaral RBC 3.15 106/ul Critically low 4.20-5.40 [facility] Comment on above: Performed By: #### C BC #### [facility] [address] [place] [address] Dr. Narciso Amaral WBC 10.2 103/ul Normal 4.0-11.0 [facility] Comment on above: Performed By: #### C BC #### [facility] [address] [place] [address] Dr. Narciso Amaral CBC AUTO DIFFon 01-08-2022 BASO # 0.0 103/ul Normal 0.0-0.1 [facility] Comment on above: Performed By: #### C BC #### [facility] [address] [place] [address] Dr. Narciso Amaral Basophils/100 WBC (Bld) 0.3 % Normal 0.2-2.0 [facility] Comment on above: Performed By: #### C BC #### [facility] [address] [place] [address] Dr. Narciso Amaral EO # 0.0 103/ul Normal 0.0-0.7 [facility] Comment on above: Performed By: #### C BC #### [facility] [address] [place] [address] Dr. Narciso Amaral Eosinophils/100 WBC (Bld) 0.4 % Critically low 0.9-7.0 [facility] Comment on above: Performed By: #### C BC #### [facility] [address] [place] [address] Dr. Narciso Amaral Erythrocyte distribution width (RBC) [Ratio] 12.7 % Normal 11.0-15.0 [facility] Comment on above: Performed By: #### C BC #### [facility] [address] [place] [address] Dr. Narciso Amaral Hematocrit (Bld) [Volume fraction] 38.0 % Normal 36.0-48.0 [facility] Comment on above: Performed By: #### C BC #### [facility] [address] [place] [address] Dr. Narciso Amaral Hemoglobin (Bld) [Mass/Vol] 12.5 g/dL Normal 12.0-16.0 [facility] Comment on above: Performed By: #### C BC #### [facility] [address] [place] [address] Dr. Narciso Amaral IG # 0.03 10e3/ul Normal 0.00-0.03 [facility] Comment on above: Performed By: #### C BC #### [facility] [address] [place] [address] Dr. Narciso Amaral IG % 0.4 % Normal 0.0-0.5 [facility] Comment on above: Performed By: #### C BC #### [facility] [address] [place] [address] Dr. Narciso Amaral LYMPH # 1.3 103/ul Normal 1.2-3.8 [facility] Comment on above: Performed By: #### C BC #### [facility] [address] [place] [address] Dr. Narciso Amaral Lymphocytes/100 WBC (Bld) 17.6 % Critically low 20.5-60.0 [facility] Comment on above: Performed By: #### C BC #### [facility] [address] [place] [address] Dr. Narciso Amaral MANUAL DIFF REQ NO Normal [facility] Comment on above: Performed By: #### C BC #### [facility] [address] [place] [address] Dr. Narciso Amaral MCH (RBC) [Entitic mass] 31.6 pg Normal 26.7-34.0 [facility] Comment on above: Performed By: #### C BC #### [facility] [address] [place] [address] Dr. Narciso Amaral MCHC (RBC) [Mass/Vol] 32.9 g/dL Normal 29.9-35.2 [facility] Comment on above: Performed By: #### C BC #### [facility] [address] [place] [address] Dr. Narciso Amaral MCV (RBC) [Entitic vol] 96.0 fL Normal 81.0-99.0 [facility] Comment on above: Performed By: #### C BC #### [facility] [address] [place] [address] Dr. Narciso Amaral MONO # 0.5 103/ul Normal 0.3-0.8 [facility] Comment on above: Performed By: #### C BC #### [facility] [address] [place] [address] Dr. Narciso Amaral Monocytes/100 WBC (Bld) 6.2 % Normal 1.7-12.0 [facility] Comment on above: Performed By: #### C BC #### [facility] [address] [place] [address] Dr. Narciso Amaral NEUT # 5.5 103/ul Normal 1.4-6.5 [facility] Comment on above: Performed By: #### C BC #### [facility] [address] [place] [address] Dr. Narciso Amaral Neutrophils/100 WBC (Bld) 75.1 % Critically high 43.0-75.0 [facility] Comment on above: Performed By: #### C BC #### [facility] [address] [place] [address] Dr. Narciso Amaral Platelet mean volume (Bld) [Entitic vol] 10.3 fL Normal 9.5-13.5 [facility] Comment on above: Performed By: #### C BC #### [facility] [address] [address] [address] Narciso Amaral PLT 159 103/ul Normal 150-450 [facility] Comment on above: Performed By: #### C BC #### [facility] [address] [address] [address] Narciso Amaral RBC 3.96 106/ul Critically low 4.20-5.40 [facility] Comment on above: Performed By: #### C BC #### [facility] [address] [address] [address] Narciso Amaral WBC 7.4 103/ul Normal 4.0-11.0 [facility] Comment on above: Performed By: #### C BC #### [facility] [address] [place] [address] Dr. Narciso Amaral [facility]25 SARS-CoV-2 (COVID-19) RNA MOHAN+probe Ql (Unsp spec) Not detected Normal NOT DETECTED [facility] Comment on above: Result Comment: [...] for this test is supported by the [place] of [employer] and [employer]'s declaration that [...] used). Performed By: #### C VDTBH #### [facility] [address] [place] [address] Dr. Narciso Amaral DRUG SCREEN RAPID (URINE)on 01-08-2022 AMP Negative Normal NEGATIVE [facility] Comment on above: Performed By: #### C T/NGNA #### [facility] [address] [place] [address] Dr. Narciso Amaral BAR Negative Normal NEGATIVE [facility] Comment on above: Performed By: #### C T/NGNA #### [facility] [address] [place] [address] Dr. Narciso Amaral BUP Negative Normal NEGATIVE [facility] Comment on above: Performed By: #### C T/NGNA #### [facility] [address] [place] [address] Dr. Narciso Amaral BZO Negative Normal NEGATIVE [facility] Comment on above: Performed By: #### C T/NGNA #### [facility] [address] [place] [address] Dr. Narciso Amaral TREY Negative Normal NEGATIVE [facility] Comment on above: Performed By: #### C T/NGNA #### [facility] [address] [place] [address] Dr. Narciso Amaral CUT-OFFS SEE BELOW Normal [facility] Comment on above: Result Comment: AMP (Amphetamine): 500ng/mL, BAR (Barbituates): 200 ng/mL, BZO (Benzodiazepines): 150 ng/mL, BUP (Buprenorphine): 10 ng/mL, TREY (Cocaine): 150 ng/mL, mAMP (Methamphetamine): 500 ng/mL, MTD (Methadone): 200 ng/mL, OPI (Opiates): 100 ng/mL, OXY (Oxycodone): 100 ng/mL, PCP (Phencyclidine): 25 ng/mL, PPX (Propoxyphene): 300 ng/mL, THC (Cannabinoids): 50 ng/mL, TCA (Trycyclic Antidepressants): 300 ng/mL Performed By: #### C T/NGNA #### [facility] [address] [place] [address] Dr. Narciso Amaral DRUG CUT HEADER DRUG CLASS TEST SYSTEM CUT-OFF CONCENTRATIONS ARE FOLLOWS: Normal [facility] Comment on above: Performed By: #### C T/NGNA #### [facility] [address] [place] [address] Dr. Narciso Amaral mAMP Negative Normal NEGATIVE [facility] Comment on above: Performed By: #### C T/NGNA #### [facility] [address] [place] [address] Dr. Narciso Amaral MTD Negative Normal NEGATIVE [facility] Comment on above: Performed By: #### C T/NGNA #### [facility] [address] [place] [address] Dr. Narciso Amaral OPI Negative Normal NEGATIVE [facility] Comment on above: Performed By: #### C T/NGNA #### [facility] [address] [address] [address] Narciso Amaral OXY Negative Normal NEGATIVE [facility] Comment on above: Performed By: #### C T/NGNA #### [facility] [address] [place] [address] Dr. Narciso Amaral PCP Negative Normal NEGATIVE [facility] Comment on above: Performed By: #### C T/NGNA #### [facility] [address] [place] [address] Dr. Narciso Amaral PPX Negative Normal NEGATIVE [facility] Comment on above: Performed By: #### C T/NGNA #### [facility] [address] [address] [address] Narciso Amaral TCA Negative Normal NEGATIVE [facility] Comment on above: Performed By: #### C T/NGNA #### [facility] [address] [place] [address] Dr. Narciso Amaral THC Negative Normal NEGATIVE [facility] Comment on above: Performed By: #### C T/NGNA #### [facility] [address] [place] [address] Dr. Narciso Amaral TYPE AND SCREENon 01-08-2022 TYPE AND SCREEN Negative Normal [facility] Comment on above: Performed By: #### C T/NGNA #### [facility] [address] [place] [address] Dr. Narciso Amaral US PREG BIOPHY W [...] KRISTINA ESTRADA Date: 2022-01-07 16:20 Normal [facility] US PREG BIOPHY W NON [...] KRISTINA ESTRADA Date: 2021-12-31 16:27 Normal [facility] VAGINITIS/VAGINOSIS DNA PROB Julius 12-26-2021 Fany species Negative Normal Negative [facility] Comment on above: Performed By: #### C BC #### [facility] [address] [address] [address] Narciso Amaral Gardnerella vaginalis Negative Normal Negative [facility] Comment on above: Performed By: #### C BC #### [facility] [address] [address] [address] Narciso Amaral Trichomonas vaginalis Negative Normal Negative [facility] Comment on above: Performed By: #### C BC #### [facility] [address] [address] [address] Narciso Amaral US PREG BIOPHY W [...] by: KRISTINA ESTRADA Date: 2021-12-25 09:13 Normal [facility] GROUP B STREP CULTUREon 11-26 S. agalactiae Ag Ql (Unsp spec) Culture Observations: NEGATIVE FOR GROUP B STREPTOCOCCUS. Normal [facility] Comment on above: Performed By: #### C T/HAWA #### [facility] [address] [place] [address] Dr. Narciso Amaral US PREG GROWTHon 12-24-2021 US PREG GROWTH Ultrasound biophysical profile Ultrasound obstetrical, limited CLINICAL: Oligohydramnios follow-up. TECHNIQUE: Transabdominal obstetrical ultrasound was performed. Ultrasound biophysical profile was also performed by electronic coils supervisor. FINDINGS: 09/29/2021. FETUS AND PLACENTA: There is [...] gestational age according to Hadlock criteria. Remarks: Production Material Handler reports that Dr. Watkins is aware of findings. Electronically authenticated by: AMPARO PATEL Date: 2021-12-24 12:27 [facility] Hematocrit (Bld) [Volume fraction] 35.7 [...] 37 g/dL B ON [facility] MCV (RBC) [Entitic vol] 98.1 fL 80 - 100 fL [facility] Platelet distribution width (Bld) [Ratio] 12.1 % 12.1 - 15.2 % [facility] Platelets (Bld) [#/Vol] 178 10*3/uL [facility] RBC (Bld) [#/Vol] 3.64 10*6/uL Low 4.0 - 5.2 m/uL [facility] WBC (Bld) [#/Vol] 7.6 10*3/uL [facility] Glucose tolerance, 1 houron 10-28-2021 GLU ADMN Glucola [facility] Glucose tolerance screen 50g 134 mg/dL 70 - 135 mg/dL [facility] US PREG INCOMPLETE ANATOMYon 09-29-2021 [...] by: GREG RODNEY Date: 2021-09-29 08:50 Normal [facility] US PREG ANATOMY SINGLEon US PREG ANATOMY [...] KRISTINA ESTRADA Date: 2021-09-01 16:26 Normal [facility] AFP MATERNAL FOR SPINA BIFID Aon 08-25-2021 AFP MoM 0.71 Normal [facility] Comment on above: Performed By: #### C BC #### [facility] [address] [address] [address] Narciso Amaral AFP Value 45.2 ng/mL Normal [facility] Comment on above: Performed By: #### C BC #### [facility] [address] [address] [address] Narciso Amaral AFP, Serum for Spina Bifida Report Normal [facility] Comment on above: Performed By: #### C BC #### [facility] [address] [address] [address] Narciso Amaral Comment Comment Normal [facility] Comment on above: Result Comment: Ky Magallon, Ph.D., [facility] Director . References: Available Upon Request. . Multiples Of Median Cutoffs For AFP Elevations Bernstein 2.5 Black 2.8 IDD 2.0 Twins 4.5 Abbreviation Definitions IDD - Insulin Dep Diabetes OSBR - Open Spina Bifida Risk . For further inquiries contact [employer] at [phone]. Performed By: #### C BC #### [facility] [address] [address] [address] Narciso Echevarria Age Collection Date 19.0 weeks Normal [facility] Comment on above: Performed By: #### C BC #### [facility] [address] [address] [address] Narciso Amaral Gestat, Age Based on LMP Normal [facility] Comment on above: Result Comment: Reca lculations are not recommended when gestational dating by LMP and ultrasound are within 10 days. Performed By: #### C BC #### [facility] [address] [address] [address] Narciso Amaral Insulin Dep Diabetes No Normal [facility] Comment on above: Performed By: #### C BC #### [facility] [address] [address] [address] Narciso Amaral Interpretation Comment Normal [facility] Comment on above: Result Comment: Inte [...] Customer Services to discuss available options. The [employer] recommends amniocentesis be offered to women age 35 and older. Performed By: #### C BC #### [facility] [address] [address] [address] Narciso Amaral [age] Normal [facility] Comment on above: Performed By: #### C BC #### [facility] [address] [address] [address] Narciso Amaral Multiple Gestation No Normal [facility] Comment on above: Performed By: #### C BC #### [facility] [address] [place] [address] Dr. Narciso Amaral [place] [id number] Normal [facility] Comment on above: Performed By: #### C BC #### [facility] [address] [place] [address] Dr. Narciso Amaral PDF . [facility] Comment on above: Performed By: #### C BC #### [facility] [address] [place] [address] Dr. Narciso Amaral Race [facility] Comment on above: Performed By: #### C BC #### [facility] [address] [address] [address] Narciso Amaral Test Results: Negative [facility] Comment on above: Performed By: #### C BC #### [facility] [address] [place] [address] Dr. Narciso Amaral PAP ACOG PANEL 2: 21 to 29on 08-23-2021 . . [facility] Comment on above: Performed By: #### C BC #### [facility] [address] [place] [address] Dr. Narciso Amaral Age Gdln ACOG Testing - [facility] Comment on above: Performed By: #### C BC #### [facility] [address] [place] [address] Dr. Narciso Amaral DIAGNOSIS: Comment [facility] Comment on above: Result Comment: NEGA TIVE FOR INTRAEPITHELIAL LESION OR MALIGNANCY. Performed By: #### C BC #### [facility] [address] [place] [address] Dr. Narciso Amaral Methodology: Comment [facility] Comment on above: Result Comment: This liquid based ThinPrep(R) pap test was screened with the use of an image guided system. Performed By: #### C BC #### [facility] [address] [place] [address] Dr. Narciso Amaral Note: Comment [facility] Comment on above: Result Comment: The Pap smear is a screening test designed to aid in the detection of premalignant and malignant conditions of the uterine cervix. It is not a diagnostic procedure and should not be used as the sole means of detecting cervical cancer. Both false-positive and false-negative reports do occur. . Performed By: #### C BC #### [facility] [address] [place] [address] Dr. Narciso Amaral Performed by: Comment Normal [facility] Comment on above: Result Comment: [employer], [employer] (ASCP) Performed By: #### C BC #### [facility] [address] [place] [address] Dr. Narciso Amaral Reflex Criteria: Comment Normal [facility] Comment on above: Result Comment: The HPV DNA reflex criteria were not met with this specimen result therefore, no HPV testing was performed. . Performed By: #### C BC #### [facility] [address] [place] [address] Dr. Narciso Amaral Specimen adequacy: Comment Normal [facility] Comment on above: Result Comment: Sati sfactory for evaluation. No endocervical component is identified. Performed By: #### C BC #### [facility] [address] [place] [address] Dr. Narciso Amaral CHLAMYDIA/GONOCOCCUS MOHAN (SW AB/URINE/PAPon 08-21-2021 Chlamydia trachomatis, MOHAN Negative Normal Negative [facility] Comment on above: Performed By: #### C T/NGNA #### [facility] [address] [place] [address] Dr. Narciso Amaral Neisseria gonorrhoeae, MOHAN Negative Normal Negative [facility] Comment on above: Performed By: #### C T/NGNA #### [facility] [address] [place] [address] Dr. Narciso Amaral HEP B SURFACE ANTIGEN SCREEN on 07-04-2021 HBsAg Screen Negative Normal Negative [facility] Comment on above: Performed By: #### N BOX #### [facility] [address] [place] [address] Dr. Narciso Amaral HEPATITIS C VIRUS AB W/ REFL EX QUANTon 07-04-2021 HCV AB <0.1 Normal 0.0-0.9 [facility] Comment on above: Performed By: #### C BC #### [facility] [address] [place] [address] Dr. Narciso Amaral Interpretation: Comment Normal [facility] Comment on above: Result Comment: Nega tive Not infected with HCV, unless recent infection is suspected or other evidence exists to indicate HCV infection. Performed By: #### C BC #### [facility] [address] [place] [address] Dr. Narciso Amaral HIV 1 AND 2 WITH REFLEXon HIV Screen 4th Generation wRfx Non-Reactive Normal Non Reactive [facility] Comment on above: Result Comment: HIV Negative HIV-1/HIV-2 antibodies and HIV-1 p24 antigen were NOT detected. There is no laboratory evidence of HIV infection. Performed By: #### N BOX #### [facility] [address] [place] [address] Dr. Narciso Amaral RPR QUANTon 07-04-2021 Rapid Plasma Reagin, Quant Non-Reactive Normal NonRea<1:1 [facility] Comment on above: Performed By: #### C BC #### [facility] [address] [place] [address] Dr. Narciso Amaral RUBELLA AB IGGon 07-04-2021 Rubella Antibodies, IgG <0.90 Critically low Immune >0.99 [facility] Comment on above: Result Comment: Non- immune <0.90 Equivocal 0.90 - 0.99 Immune >0.99 Performed By: #### R UBIGG #### [facility] [address] [place] [address] Dr. Narciso Amaral CBC AUTO DIFFon 07-03-2021 BASO # 0.0 103/ul Normal 0.0-0.1 [facility] Comment on above: Performed By: #### C BC #### [facility] [address] [place] [address] Dr. Narciso Amaral Basophils/100 WBC (Bld) 0.4 % Normal 0.2-2.0 [facility] Comment on above: Performed By: #### C BC #### [facility] [address] [place] [address] Dr. Narciso Amaral EO # 0.0 103/ul Normal 0.0-0.7 [facility] Comment on above: Performed By: #### C BC #### [facility] [address] [place] [address] Dr. Narciso Amaral Eosinophils/100 WBC (Bld) 0.4 % Critically low 0.9-7.0 [facility] Comment on above: Performed By: #### C BC #### [facility] [address] [place] [address] Dr. Narciso Amaral Erythrocyte distribution width (RBC) [Ratio] 11.9 % Normal 11.0-15.0 [facility] Comment on above: Performed By: #### C BC #### [facility] [address] [place] [address] Dr. Narciso Amaral Hematocrit (Bld) [Volume fraction] 33.0 % Critically low 36.0-48.0 [facility] Comment on above: Performed By: #### C BC #### [facility] [address] [place] [address] Dr. Narciso Amaral Hemoglobin (Bld) [Mass/Vol] 11.3 g/dL Critically low 12.0-16.0 [facility] Comment on above: Performed By: #### C BC #### [facility] [address] [place] [address] Dr. Narciso Amaral IG # 0.01 10e3/ul Normal 0.00-0.03 [facility] Comment on above: Performed By: #### C BC #### [facility] [address] [place] [address] Dr. Narciso Amaral IG % 0.2 % Normal 0.0-0.5 [facility] Comment on above: Performed By: #### C BC #### [facility] [address] [place] [address] Dr. Narciso Amaral LYMPH # 1.9 103/ul Normal 1.2-3.8 [facility] Comment on above: Performed By: #### C BC #### [facility] [address] [place] [address] Dr. Narciso Amaral Lymphocytes/100 WBC (Bld) 35.9 % Normal 20.5-60.0 [facility] Comment on above: Performed By: #### C BC #### [facility] [address] [place] [address] Dr. Narciso Amaral MANUAL DIFF REQ NO Normal [facility] Comment on above: Performed By: #### C BC #### [facility] [address] [place] [address] Dr. Narciso Amaral MCH (RBC) [Entitic mass] 31.6 pg Normal 26.7-34.0 [facility] Comment on above: Performed By: #### C BC #### [facility] [address] [place] [address] Dr. Narciso Amaral MCHC (RBC) [Mass/Vol] 34.2 g/dL Normal 29.9-35.2 [facility] Comment on above: Performed By: #### C BC #### [facility] [address] [place] [address] Dr. Narciso Amaral MCV (RBC) [Entitic vol] 92.2 fL Normal 81.0-99.0 [facility] Comment on above: Performed By: #### C BC #### [facility] [address] [place] [address] Dr. Narciso Amaral MONO # 0.2 103/ul Critically low 0.3-0.8 [facility] Comment on above: Performed By: #### C BC #### [facility] [address] [place] [address] Dr. Narciso Amaral Monocytes/100 WBC (Bld) 4.2 % Normal 1.7-12.0 [facility] Comment on above: Performed By: #### C BC #### [facility] [address] [place] [address] Dr. Narciso Amaral NEUT # 3.1 103/ul Normal 1.4-6.5 [facility] Comment on above: Performed By: #### C BC #### [facility] [address] [place] [address] Dr. Narciso Amaral Neutrophils/100 WBC (Bld) 58.9 % Normal 43.0-75.0 [facility] Comment on above: Performed By: #### C BC #### [facility] [address] [address] [address] Narciso Amaral Platelet mean volume (Bld) [Entitic vol] 10.4 fL Normal 9.5-13.5 [facility] Comment on above: Performed By: #### C BC #### [facility] [address] [address] [address] Narciso Amaral PLT 158 103/ul Normal 150-450 [facility] Comment on above: Performed By: #### C BC #### [facility] [address] [address] [address] Narciso Amaral RBC 3.58 106/ul Critically low 4.20-5.40 [facility] Comment on above: Performed By: #### C BC #### [facility] [address] [place] [address] Dr. Narciso Amaral WBC 5.2 103/ul Normal 4.0-11.0 [facility] Comment on above: Performed By: #### C BC #### [facility] [address] [address] [address] Narciso Amaral CULTURE URINEon 07-03-2021 CULTURE URINE Culture Observations: No growth Normal [facility] Comment on above: Performed By: #### U RCX #### [facility] [address] [place] [address] Dr. Narciso Amaral GLYCOHEMOGLOBIN A1Con 2021 ADA RECOMMENDATION ADA THERAPEUTIC TARGET 6.0 - 7.0 ACTION SUGGESTED > 7.0 Normal [facility] Comment on above: Performed By: #### N BOX #### [facility] [address] [place] [address] Dr. Narciso Amaral Glucose [Mass/Vol] 88 mg/dL Normal [facility] Comment on above: Performed By: #### N BOX #### [facility] [address] [address] [address] Narciso Amaral HbA1c (Bld) [Mass fraction] 4.7 % Normal <=6.0 [facility] Comment on above: Performed By: #### N BOX #### [facility] [address] [place] [address] Dr. Narciso ARIAS TEST PT SEND OUTo n 07-03-2021 SENT TO REF LAB 07/03/2021 Normal [facility] Comment on above: Performed By: #### N BOX #### [facility] [address] [place] [address] Dr. Narciso Amaral TYPE AND SCREENon 07-03-2021 TYPE AND SCREEN Negative Normal [facility] Comment on above: Performed By: #### C T/NGNA #### [facility] [address] [place] [address] Dr. Narciso Amaral CBC AUTO DIFFon 06-17-2021 BASO # 0.0 103/ul Normal 0.0-0.1 [facility] Comment on above: Performed By: #### N BOX #### [facility] [address] [place] [address] Dr. Narciso Amaral Basophils/100 WBC (Bld) 0.4 % Normal 0.2-2.0 [facility] Comment on above: Performed By: #### N BOX #### [facility] [address] [place] [address] Dr. Narciso Amaral EO # 0.0 103/ul Normal 0.0-0.7 [facility] Comment on above: Performed By: #### N BOX #### [facility] [address] [place] [address] Dr. Narciso Amaral Eosinophils/100 WBC (Bld) 0.0 % Critically low 0.9-7.0 [facility] Comment on above: Performed By: #### N BOX #### [facility] [address] [place] [address] Dr. Narciso Amaral Erythrocyte distribution width (RBC) [Ratio] 11.6 % Normal 11.0-15.0 [facility] Comment on above: Performed By: #### N BOX #### [facility] [address] [place] [address] Dr. Narciso Amaral Hematocrit (Bld) [Volume fraction] 42.6 % Normal 36.0-48.0 [facility] Comment on above: Performed By: #### N BOX #### [facility] [address] [address] [address] Narciso Amaral Hemoglobin (Bld) [Mass/Vol] 14.9 g/dL Normal 12.0-16.0 [facility] Comment on above: Performed By: #### N BOX #### [facility] [address] [address] [address] Narciso Amaral IG # 0.02 10e3/ul Normal 0.00-0.03 [facility] Comment on above: Performed By: #### N BOX #### [facility] [address] [place] [address] Dr. Narciso Amaral IG % 0.3 % Normal 0.0-0.5 [facility] Comment on above: Performed By: #### N BOX #### [facility] [address] [place] [address] Dr. Narciso Aamral LYMPH # 2.1 103/ul Normal 1.2-3.8 [facility] Comment on above: Performed By: #### N BOX #### [facility] [address] [place] [address] Dr. Narciso Amaral Lymphocytes/100 WBC (Bld) 28.8 % Normal 20.5-60.0 [facility] Comment on above: Performed By: #### N BOX #### [facility] [address] [place] [address] Dr. Narciso Amaral MANUAL DIFF REQ NO Normal [facility] Comment on above: Performed By: #### N BOX #### [facility] [address] [place] [address] Dr. Narciso Amaral MCH (RBC) [Entitic mass] 31.6 pg Normal 26.7-34.0 [facility] Comment on above: Performed By: #### N BOX #### [facility] [address] [place] [address] Dr. Narciso Amaral MCHC (RBC) [Mass/Vol] 35.0 g/dL Normal 29.9-35.2 [facility] Comment on above: Performed By: #### N BOX #### [facility] [address] [place], [place] [id number] Dr. Narciso Amaral MCV (RBC) [Entitic vol] 90.4 fL Normal 81.0-99.0 [facility] Comment on above: Performed By: #### N BOX #### [facility] [address] [place] [address] Dr. Narciso Amaral MONO # 0.3 103/ul Normal 0.3-0.8 [facility] Comment on above: Performed By: #### N BOX #### [facility] [address] [place] [address] Dr. Narciso Amaral Monocytes/100 WBC (Bld) 4.6 % Normal 1.7-12.0 [facility] Comment on above: Performed By: #### N BOX #### [facility] [address] [place] [address] Dr. Narciso Amaral NEUT # 4.7 103/ul Normal 1.4-6.5 [facility] Comment on above: Performed By: #### N BOX #### [facility] [address] [place] [address] Dr. Narciso Amaral Neutrophils/100 WBC (Bld) 65.9 % Normal 43.0-75.0 [facility] Comment on above: Performed By: #### N BOX #### [facility] [address] [place] [address] Dr. Narciso Amaral Platelet mean volume (Bld) [Entitic vol] 9.7 fL Normal 9.5-13.5 [facility] Comment on above: Performed By: #### N BOX #### [facility] [address] [place] [address] Dr. Narciso Amaral PLT 199 103/ul Normal 150-450 [facility] Comment on above: Performed By: #### N BOX #### [facility] [address] [place] [address] Dr. Narciso Amaral RBC 4.71 106/ul Normal 4.20-5.40 [facility] Comment on above: Performed By: #### N BOX #### [facility] [address] [place] [address] Dr. Narciso Amaral WBC 7.1 103/ul Normal 4.0-11.0 [facility] Comment on above: Performed By: #### N BOX #### [facility] [address] [place] [address] Dr. Narciso WILL URINE PROFILEon 2 Bilirubin Ql (U) Negative Normal NEGATIVE [facility] Comment on above: Performed By: #### E RUR #### [facility] [address] [place] [address] Dr. Narciso Amaral Clarity (U) SL CLOUDY Abnormal CLEAR [facility] Comment on above: Performed By: #### E RUR #### [facility] [address] [place] [address] Dr. Narciso Amaral Color (U) YELLOW Normal YELLOW [facility] Comment on above: Performed By: #### E RUR #### [facility] [address] [place] [address] Dr. Narciso HARTMANNAHHerberth A micrscopic examination will be performed if indicated. Normal [facility] Comment on above: Performed By: #### E RUR #### [facility] [address] [place] [address] Dr. Narciso Amaral Glucose Ql (U) Negative Normal NEGATIVE [facility] Comment on above: Performed By: #### E RUR #### [facility] [address] [place] [address] Dr. Narciso Amaral Hemoglobin Ql (U) Negative Normal NEGATIVE [facility] Comment on above: Performed By: #### E RUR #### [facility] [address] [place] [address] Dr. Narciso Amaral Ketones Ql (U) >=80 Abnormal NEGATIVE [facility] Comment on above: Performed By: #### E RUR #### [facility] [address] [place] [address] Dr. Narciso Amaral LEUKOCYTES Negative Normal NEGATIVE [facility] Comment on above: Performed By: #### E RUR #### [facility] [address] [place] [address] Dr. Narciso Amaral Nitrite Ql (U) Negative Normal NEGATIVE [facility] Comment on above: Performed By: #### E RUR #### [facility] [address] [place] [address] Dr. Narciso Amaral pH (U) 6.0 [pH] Normal 5-9 [facility] Comment on above: Performed By: #### E RUR #### [facility] [address] [place] [address] Dr. Narciso Amaral SPEC GRAVITY >=1.030 Abnormal 1.005-<=1.025 [facility] Comment on above: Performed By: #### E RUR #### [facility] [address] [place] [address] Dr. Narciso Amaral UA PROTEIN TRACE Normal NEGATIVE/ TRACE [facility] Comment on above: Performed By: #### E RUR #### [facility] [address] [place] [address] Dr. Narciso Amaral UR MICRO IND NOT INDICATED Normal [facility] Comment on above: Performed By: #### E RUR #### [facility] [address] [place] [address] Dr. Narciso Amaral Urobilinogen Qn (U) 1.0 {Maggy'U}/dL Normal 0.2 - 1. 0 [facility] Comment on above: Performed By: #### E RUR #### [facility] [address] [place] [address] Dr. Narciso Amaral PROF 14(COMP METB)on 022 Albumin [Mass/Vol] 4.6 g/dL Normal 3.5-5.0 [facility] Comment on above: Performed By: #### C BC #### [facility] [address] [place] [address] Dr. Narciso Amaral Albumin/Globulin [Mass ratio] 1.0 {ratio} Normal [facility] Comment on above: Performed By: #### C BC #### [facility] [address] [place] [address] Dr. Narciso Amaral ALP [Catalytic activity/Vol] 54 U/L Normal 38-126 [facility] Comment on above: Performed By: #### C BC #### [facility] [address] [address] [address] Narciso Amaral ALT [Catalytic activity/Vol] 12 U/L Normal 9-52 [facility] Comment on above: Performed By: #### C BC #### [facility] [address] [address] [address] Narciso Amaral Anion gap [Moles/Vol] 14.8 mmol/L Normal [facility] Comment on above: Performed By: #### C BC #### [facility] [address] [address] [address] Narciso Amaral AST [Catalytic activity/Vol] 11 U/L Critically low 14-36 [facility] Comment on above: Performed By: #### C BC #### [facility] [address] [place] [address] Dr. Narciso Amaral Bilirubin [Mass/Vol] 0.9 mg/dL Normal 0.2-1.3 [facility] Comment on above: Performed By: #### C BC #### [facility] [address] [place] [address] Dr. Narciso Amaral Calcium [Mass/Vol] 9.6 mg/dL Normal 8.4-10.2 [facility] Comment on above: Performed By: #### C BC #### [facility] [address] [place] [address] Dr. Narciso Amaral Chloride [Moles/Vol] 98 mmol/L Normal 98-107 [facility] Comment on above: Performed By: #### C BC #### [facility] [address] [address] [address] Narciso Amaral CO2 [Moles/Vol] 27.3 mmol/L Normal 22.0-30.0 [facility] Comment on above: Performed By: #### C BC #### [facility] [address] [place] [address] Dr. Narciso Amaral Creatinine [Mass/Vol] 0.55 mg/dL Normal 0.52-1.04 [facility] Comment on above: Performed By: #### C BC #### [facility] [address] [address] [address] Narciso Amaral EGFR-AF HUNGARIAN >60 Normal >=60 [facility] Comment on above: Performed By: #### C BC #### [facility] [address] [address] [address] Narciso Amaral EGFR-NON AF HUNGARIAN >60 Normal >=60 [facility] Comment on above: Performed By: #### C BC #### [facility] [address] [address] [address] Narciso Amaral Globulin (S) [Mass/Vol] 4.7 g/dL Normal [facility] Comment on above: Performed By: #### C BC #### [facility] [address] [address] [address] Narciso Amaral Glucose [Mass/Vol] 87 mg/dL Normal 74-106 [facility] Comment on above: Performed By: #### C BC #### [facility] [address] [place] [address] Dr. Narciso Amaral Potassium [Moles/Vol] 3.1 mmol/L Critically low 3.4-5.0 [facility] Comment on above: Performed By: #### C BC #### [facility] [address] [place] [address] Dr. Narciso Amaarl Protein [Mass/Vol] 9.3 g/dL Critically high 6.1-8.2 [facility] Comment on above: Performed By: #### C BC #### [facility] [address] [address] [address] Narciso Amaral Sodium [Moles/Vol] 137 mmol/L Normal 137-145 [facility] Comment on above: Performed By: #### C BC #### [facility] [address] [place] [address] Dr. Narciso Amaral Urea nitrogen [Mass/Vol] 11.0 mg/dL Normal 7.0-17.0 [facility] Comment on above: Performed By: #### C BC #### [facility] [address] [address] [address] Narciso Amaral Urea nitrogen/Creatinine [Mass ratio] 20.0 mg/mg Normal [facility] Comment on above: Performed By: #### C BC #### [facility] [address] [place] [address] Dr. Narciso Amaral US PREG TVon 06-17-2021 [...] by: KRISTINA ESTRADA Date: 2021-06-17 17:29 Normal [facility] Vital Signs Date Time Vital Sign Value Performing Clinician Facility 05-31-2023 08:51-0500 Body mass index (BMI) [Ratio] 22.85 kg/m2 Lydia DOLAN Work Phone: [facility] 05-31-2023 08:51-0500 Body weight 60.38 kg Lydia DOLAN Work Phone: [facility] 05-31-2023 08:51-0500 Diastolic blood pressure 66 mm[Hg] Lydia DOLAN Work Phone: [facility] 05-31-2023 08:51-0500 Systolic blood pressure 102 mm[Hg] Lydia DOLAN Work Phone: [facility] 01-03-2023 20:48-0400 Diastolic blood pressure 66 mm[Hg] Kemal Sharma [facility] 01-03-2023 20:48-0400 Heart rate 68 /min Kemal Sharma [facility] 01-03-2023 20:48-0400 Respiratory rate 18 /min Kemal Sharma [facility] 01-03-2023 20:48-0400 SaO2% (BldA) [Mass fraction] 99 % Kemal Zachary [facility] 01-03-2023 20:48-0400 Systolic blood pressure 110 mm[Hg] Kemal Zachary [facility] 01-03-2023 19:55-0400 Hourly Rounding Kemal Zachary [facility] 01-03-2023 19:53-0400 Diastolic blood pressure 71 mm[Hg] Kemal Zachary [facility] 01-03-2023 19:53-0400 Heart rate 70 /min Kemal [facility] 01-03-2023 19:53-0400 Respiratory rate 18 /min Kemal [facility] 01-03-2023 19:53-0400 SaO2% (BldA) [Mass fraction] 99 % Kemal Zachary [facility] 01-03-2023 19:53-0400 Systolic blood pressure 106 mm[Hg] Kemal Zachary [facility] 01-03-2023 18:55-0400 Diastolic blood pressure 74 mm[Hg] Kemal Zachary [facility] 01-03-2023 18:55-0400 Heart rate 74 /min Kemal [facility] 01-03-2023 18:55-0400 Hourly Rounding Kemal Zachary [facility] 01-03-2023 18:55-0400 Respiratory rate 16 /min Kemal [facility] 01-03-2023 18:55-0400 SaO2% (BldA) [Mass fraction] 99 % Kemal Zachary [facility] 01-03-2023 18:55-0400 Systolic blood pressure 108 mm[Hg] Kemal Sharma [facility] 01-03-2023 17:55-0400 Hourly Rounding Kemal Sharma [facility] 01-03-2023 17:55-0400 Promise to Return Kemal Sahrma [facility] 01-03-2023 16:55-0400 Body temperature 98.06 [degF] Kemal Sharma [facility] 08-25-2021 20:06-0400 Body weight 51.[address] TONI WATKINS [facility] Comment on above: Performed By: #### CBC #### [facility] [address] [place] [address] Dr. Narciso Amaral Encounters Encounter Date Encounter Type Care Provider Facility Start: 06-17-2023 End: 06-17-2023 ambulatory TONI TRES Not Available Start: 05-31-2023 End: 05-31-2023 ambulatory LYDIA GALLO Not Available Start: 05-31-2023 End: 05-31-2023 flow sheet Lydia Gallo PA Work Phone: [facility] Comment on above: Third trimester preg jordana Start: 05-06-2023 End: 05-06-2023 ambulatory TONI TRES Not Available Start: 04-28-2023 End: 04-29-2023 [facility] Start: 04-28-2023 End: 04-28-2023 Subsequent hospital visit by physician [facility] Start: 04-12-2023 End: 04-12-2023 ambulatory LYDIA GALLO Not Available Start: 03-08-2023 End: 03-08-2023 ambulatory TONI TRES Not Available Start: 01-03-2023 End: 01-03-2023 Emergency department patient visit Kemal [place] [place]: 01-03-2023 End: 01-03-2023 Emergency department patient visit Kemal GalindoFadumo Zachary [facility] Start: 01-21-[address] TONI WATKINS [...] End: 10-28-2021 Subsequent hospital visit by physician [facility] Start: 10-17-[address] TONI WATKINS [...] tolerance te st gtt 3 specimens Lydia L Alfonso PA-C Work Phone: Start: 01-08-2022 Delivery of [...] [facility] [address] [place] [id number] Toni Watkins, [address] [place] [address] [facility] Start: 05-31-2023 End: 05-31-2023 Patient encounter procedure 05/31/2023 12:30 PM EST Routine [facility] [address] [place] [id number] [facility] Start: 05-04-2023 End: 05-04-2023 Patient encounter procedure 05/04/2023 1:30 PM EST Routine [facility] [address] [place] [address] [facility] Start: 11-24-2022 Influenza vaccination Flu vaccine (# 1) [facility] Start: 12-25-2021 Influenza vaccination Flu vaccine (# 1) [facility] Start: 2017 Screening for malign ant neoplasm of cervix Pap smear [facility] Start: 04-07-2016 DTaP/Tdap/Td vaccine (1 - Tdap) DTaP/Tdap/Td vaccine (1 - Tdap) [facility] Start: 2014 Hepatitis C screening Hepatitis C sc reen [facility] Start: 08-01-2011 HIV screening HIV screen [facility] Start: 2008 Depression Screen Depression Screen [facility] [...] Date Payer Category Payer Unknown 1996 Unknown [id number] 2.16.84 [id number] 1996 Unknown [id number] 2.16.84 0.1.245273.3.579.2.593 1996 Unknown [id number] 2.16.84 0.1.437900.3.579.2.593 1996 Unknown [id number] 2.16.84 0.1.738831.3.579.2.593 1996 Unknown [id number] 2.16.84 0.1.946870.3.579.2.593 1996 Unknown [id number] 2.16.84 0.1.477090.3.579.2.593 1996 Unknown [id number] 2.16.84 0.1.077337.3.579.2.593 1996 Unknown [id number] 2.16.84 0.1.539539.3.579.2.593 1996 Unknown [id number] 2.16.84 0.1.267470.3.579.2.593 1996 Unknown [id number] 2.16.84 0.1.130371.3.579.2.593 1996 Unknown [id number] 2.16.84 0.1.737724.3.579.2.593 1996 Unknown [id number] 2.16.84 0.1.880608.3.579.2.593 1996 Unknown [id number] 2.16.84 0.1.033726.3.579.2.593 1996 Unknown [id number] 2.16.84 0.1.012721.3.579.2.593 1996 Unknown [id number] 2.16.84 0.1.083602.3.579.2.593 1996 Unknown [id number] 2.16.84 0.1.009319.3.579.2.593 1996 Unknown [id number] 2.16.84 0.1.040438.3.579.2.593 1996 Unknown [id number] 2.16.8 40.1.587076.3.579.2.727 1996 Unknown [id number] 2.16.8 40.1.340691.3.579.2.174 1996 Unknown [id number] 2.16.84 0.1.711207.3.579.2.1259 1996 Unknown [id number] 2.16.84 0.1.235659.3.579.2.1259 1996 Unknown [id number] 2.16.84 0.1.302116.3.579.2.1259 1996 Unknown [id number] 2.16.840 .1.149635.3.579.2.1259 1996 Unknown [id number] 2.16.840. 1.283049.3.579.2.1259 1959 Self-pay [id number] 1959 Self-pay 1959 Unknown [id number] 1.2.840.5592[id number] Unknown [id number] 2.16.84 0.1.272044.3.579.2.593 Social History Date Type Detail Facility Tobacco smoking status [facility] Tobacco smoking consumption unknown [employer] Work Phone: Start: 1995 Sex Assigned At Not on file [employer] Work Phone: Start: 04-05-2021 End: 04-07-2023 Tobacco smoking status Never smoked tobacco (finding) [facility] Tobacco smoking status Never [facility] Start: 04-20-2023 Sex Assigned At Female [facility] Start: 04-07-2023 Tobacco use and exposure Smokeless tobacco non-user [employer] Start: 04-20-2023 Alcohol intake Lifetime non-d jay (finding) [employer] Start: 04-20-2023 History of Social function [employer] Start: 11-12-2022 [employer] NEGATED: Highlighted rowStart: NINF History of tobacco use Passive smoker [employer] Functional Status Date Assessment Result Facility 01-03-2023 Functional Status N/A [facility] History of Present illness Narrative 05-31-2023 MAGDALENO [...] and states received a steroid while in [place] for shortened cervix. Pt to have nst [...] MAGDALENO Garsia documented in this encounter [facility] Discharge instructions 01-03-2023 Note Date & Type Note Facility 01-03-2023 Hospital Discharg e instructions Patient Education 01/03/2023 20:50:05 Morning Sickness, [id number] Morning Sickness Morning sickness is when you [...] Follow these instructions at home: Medicines Take mjip-mep-ujrbael and prescription medicines only as told by [...] provider. Document Revised: 11/25/2020 Document Reviewed: 11/04/2020 [employer] Patient Education 2022 [employer]. Follow Up Care 01/03/2023 16:18:17 With:Toni WATKINS Address: [address] , [place] [address] Business (1) When:01/06/2023 20:40:46 [facility] Evaluation + Plan note 01-03-2023 Note Date & Type Note Facility 01-03-2023 Evaluation + Plan note Extrac ida from: Title:ED Note Author:Madeline CARUSO, Velia Alvarado Jono e:9/10/23 Nausea/vomiting in (O21.9: Vomiting of , unspecified) [...] discharged home with instructions to follow with [facility] and is to return to the ED with any new or worsening symptoms. Patient voices understanding is agreeable to plan [facility] Evaluation note Note Date & Type Note Facility Evaluation note Diagnosis Third trimester state, incidental documented in this encounter [facility] Hospital course Narrative Note Date & Type Note Facility Hospital course Narrative No data available for this section [facility] Progress note Note Date & Type Note Facility Progress note No data available for this section [facility] Summary Purpose Family History No Family History Records FoundNo Family History Records FoundNo Family History Records FoundNo Family History Records Found Advance Directives No Advanced Directives Records FoundNo Advanced Directives Records FoundNo Advanced Directives Records FoundNo Advanced Directives Records Found Additional Source Comments INFORMATION SOURCE (unrecogn ized section and content) DATE CREATED AUTHOR 01/21/2022 [facility] DATE CREATED AUTHOR AUTHOR'S ORGANIZ ATION 01/07/2023 [facility] DATE CREATED AUTHOR AUTHOR'S ORGANIZ ATION 04/29/2023 Nancy Hayden Michael [facility] DATE CREATED AUTHOR AUTHOR'S ORGANIZ ATION 06/25/2023 [facility] Patient Care team informatio n (unrecognized section and content) Personnel Name: Gloria CASTELLANOS CNP Address: Address: [address] [place] [address] Dr. Blake, [facility] Reason for Visit (unrecogniz ed section [...] BE BASED ON THE PRIMARY CLINICAL RECORDS. [facility]. provides no warranty or guarantee of the accuracy or completeness of information in this document.
--- NOTE | 2023-06-28 10:23 | US_ITS ---
[address] [address] Patient Name: DOMINIK FRANCO MRN: [id number] date: 1995 Sex: F Assigned Patient Location: [facility] Current Patient Location: [facility] Accession/Order Number: [id number] Exam Date: 06/28/2023 10:30 Report Date: 06/28/2023 11:08 At the request of: TONI JOSHUA Procedure: US OB cervical length EXAMINATION: US OB BPP w non-stress, US OB cervical length HISTORY: Antepartum placenta circumvallate COMPARISON: No relevant comparison available. TECHNIQUE: Ultrasound biophysical profile was performed in the radiology department. non-reactive stress testing was performed by nursing staff in the birthing center. FINDINGS: BREATHING MOVEMENTS: 2.0 GROSS BODY MOVEMENTS: 2.0 TONE: 2.0 QUALITATIVE AMNIOTIC FLUID VOLUME: 2.0 PRESENTATION: CEPHALIC HEART RATE: 138.5 bpm H.B./min AMNIOTIC FLUID VOLUME: 13.9 cm cm GESTATIONAL AGE: 34 weeks 4 days Cervix: Closed, 3 cm in length CONCLUSION: Total biophysical profile score: 8.0 Closed cervix measuring 3 cm in length Electronically authenticated by: GREG RODNEY Date: 06/28/2023 11:08
--- NOTE | 2023-06-28 10:23 | US_ITS ---
[address] [address] Patient Name: DOMINIK FRANCO MRN: [id number] date: 1995 Sex: F Assigned Patient Location: [facility] Current Patient Location: [facility] Accession/Order Number: [id number] Exam Date: 06/28/2023 10:30 Report Date: 06/28/2023 11:08 At the request of: TONI JOSHUA Procedure: US OB BPP w non-stress EXAMINATION: US OB BPP w non-stress, US OB cervical length HISTORY: Antepartum placenta circumvallate COMPARISON: No relevant comparison available. TECHNIQUE: Ultrasound biophysical profile was performed in the radiology department. non-reactive stress testing was performed by nursing staff in the birthing center. FINDINGS: BREATHING MOVEMENTS: 2.0 GROSS BODY MOVEMENTS: 2.0 TONE: 2.0 QUALITATIVE AMNIOTIC FLUID VOLUME: 2.0 PRESENTATION: CEPHALIC HEART RATE: 138.5 bpm H.B./min AMNIOTIC FLUID VOLUME: 13.9 cm cm GESTATIONAL AGE: 34 weeks 4 days Cervix: Closed, 3 cm in length CONCLUSION: Total biophysical profile score: 8.0 Closed cervix measuring 3 cm in length Electronically authenticated by: GREG RODNEY Date: 06/28/2023 11:08
[2023-06-28 10:48] VITALS: BP 101/67; PULSE 74
== END 2023-06-28 11:08 | disposition home or self-care (01) ==
LOC: US 08:07 → FBC 10:06
PROVIDERS: Visit Provider Obstetrics & Gynecology
DX: Z36.86 Encounter for antenatal screening for cervical length (principal); Z3A.34 34 weeks gestation of pregnancy
CPT/HCPCS: 76817; 76818

== ENCOUNTER 2023-07-05 07:20 | Outpatient (OUT) | payer BC, SELFPAY ==
--- OUTSIDE RECORDS SUMMARY | 2023-07-01 07:07 | XMS_ITS | CCD ---
Author Name Unknown Address [address] [place] [address] Organization [facility] Care Team Providers Care Art Specialist Name Role Phone Unavailable Primary Care Provider [...] Amoxicillin; Translations: [amoxicillin] Drug Allergy 2 [facility] Repository (3 sources) Amoxicillin; Translations: [amoxicillin] Drug Allergy 3 rash [facility] [place] (1 source) Penicillins Propensity to adverse reactions to drug 3 Rash [facility] (2 sources) Penicillins Drug Allergy 3 Rash, [...] hours., # 16 tab(s), Refills(s) 1, Pharmacy: [id number], 168, cm, 04/09/20 15:23:00 EST, Height/Length Dosing, 50.7, kg, 04/09/20 15:23:00 EST, Weight Dosing Start Date: 04/09/20 Status: Ordered Zofran ODT 4 mg Tab-Dis (1 source) Start: 06-09-2021 take 1 tablet by mouth every six hours as needed for nausea Zofran ODT 4 mg Tab-Dis 4 mg = 1 tab(s), Oral, q6hr, PRN Nausea/Vomiting, # 12 tab(s), Refills(s) 0, Pharmacy: [facility], 165.1, cm, 06/09/21 2:43:00 EST, Height/Length Dosing, [...] applicable or unspecified; Translations: [MAT CARE OTH MO FTL GRTH 3RD TM UNS] Onset: 12-31-2021 [...] Differentialon 04-28-2023 Basophils (Bld) [#/Vol] 0.03 10*3/uL [facility] Basophils/100 WBC (Bld) 1 % 0 - 2 % [facility] Eosinophils (Bld) [#/Vol] 0.04 10*3/uL [facility] Eosinophils/100 WBC (Bld) 1 % 0 - 5 % [facility] Erythrocyte distribution width (RBC) [Ratio] 11.8 % Low 12.1 - 15.2 % [facility] Hematocrit (Bld) [Volume fraction] 35.4 % Low 36.0 - 46.0 % [facility] Hemoglobin (Bld) [Mass/Vol] 11.9 g/dL Low 12.0 - 16.0 g/dL [facility] Immature granulocytes (Bld) [#/Vol] 0.04 10*3/uL [facility] Immature granulocytes/100 WBC (Bld) 1 % 0 - 5 % [facility] Interpretation and review of laboratory results Abnormal [facility] Lymphocytes/100 WBC (Bld) 24 % 15 - 40 % [facility] Lymphocytes/100 WBC (Bld) 1.53 % [facility] MCH (RBC) [Entitic mass] 32.9 pg 26.0 - 34.0 pg [facility] MCHC (RBC) [Mass/Vol] 33.6 g/dL 31.0 - 37.0 g/dL [facility] MCV (RBC) [Entitic vol] 97.8 fL 80.0 - 100.0 fL [facility] Monocytes/100 WBC (Bld) 6 % 4 - 8 % [facility] Monocytes/100 WBC (Bld) 0.41 % [facility] Neutrophils/100 WBC (Bld) 67 % 47 - 75 % [facility] Platelet mean volume (Bld) [Entitic vol] 9.5 fL 6.0 - 12.0 fL [facility] Platelets (Bld) [#/Vol] 155 10*3/uL [facility] RBC (Bld) [#/Vol] 3.62 10*6/uL Low 4.00 - 5.2 0 m/uL [facility] Segmented neutrophils/100 WBC (Bld) 4.37 % [facility] WBC other (Bld) [#/Vol] 6.4 [facility] CBC with Diffon 04-28-2023 Abs. Basophil 0.03 k/uL Normal 0.00-0.20 [facility] Comment on above: Performed By: #### C DP, GLUSC #### [facility] [address] [place] [address] Youth Minister: Greg Castillo MD Abs.Imm.Granulocyte 0.04 k/uL Normal 0.00-0.30 [facility] Comment on above: Performed By: #### C DP, GLUSC #### [facility] [address] [place] [address] Youth Minister: Greg Castillo MD Abs.Neutrophil (Seg) 4.37 k/uL Normal 2.5-7.0 [facility] Comment on above: Performed By: #### C DP, GLUSC #### [facility] [address] [place] [address] Youth Minister: Greg Castillo MD Basophils/100 WBC (Bld) 1 % Normal 0-2 [facility] Comment on above: Performed By: #### C DP, GLUSC #### [facility] [address] [place] [phone] Youth Minister: Greg Castillo MD Eosinophils (Bld) [#/Vol] 0.04 10*3/uL Normal 0.00-0.40 [facility] Comment on above: Performed By: #### C DP, GLUSC #### [facility] [address] [place], [place] [phone] Youth Minister: Greg Castillo MD Eosinophils/100 WBC (Bld) 1 % Normal 0-5 [facility] Comment on above: Performed By: #### C DP, GLUSC #### [facility] [address] [place] [phone] Youth Minister: Greg Castillo MD Erythrocyte distribution width (RBC) [Ratio] 11.8 % Low 12.1-15.2 [facility] Comment on above: Performed By: #### C DP, GLUSC #### [facility] [address] [place] [phone] Youth Minister: Greg Castillo MD Hematocrit (Bld) [Volume fraction] 35.4 % Low 36.0-46.0 [facility] Comment on above: Performed By: #### C DP, GLUSC #### [facility] [address] [place] [phone] Youth Minister: Greg Castillo MD Hemoglobin (Bld) [Mass/Vol] 11.9 g/dL Low 12.0-16.0 [facility] Comment on above: Performed By: #### C DP, GLUSC #### [facility] [address] [place] [phone] Youth Minister: Greg Castillo MD Immature granulocytes/100 WBC (Bld) 1 % Normal 0-[address] [place] [address] Comment on above: Performed By: #### C DP, GLUSC #### [facility] [address] [place] [phone] Youth Minister: Greg Castillo MD Lymphocytes (Bld) [#/Vol] 1.53 10*3/uL Normal 1.00-4.80 [facility] Comment on above: Performed By: #### C DP, GLUSC #### [facility] [address] [place] [phone] Youth Minister: Greg Castillo MD Lymphocytes/100 WBC (Bld) 24 % Normal 15-40 [facility] Comment on above: Performed By: #### C DP, GLUSC #### [facility] [address] [place] [phone] Youth Minister: Greg Castillo MD MCH (RBC) [Entitic mass] 32.9 pg Normal 26.0-34.0 [facility] Comment on above: Performed By: #### C DP, GLUSC #### [facility] [address] [place] [address] Youth Minister: Greg Castillo MD MCHC (RBC) [Mass/Vol] 33.6 g/dL Normal 31.0-37.0 [facility] Comment on above: Performed By: #### C DP, GLUSC #### [facility] [address] [place] [phone] Youth Minister: Greg Castillo MD MCV (RBC) [Entitic vol] 97.8 fL Normal 80.0-100.0 [facility] Comment on above: Performed By: #### C DP, GLUSC #### [facility] [address] [place] [address] Youth Minister: Greg Castillo MD Monocytes (Bld) [#/Vol] 0.41 10*3/uL Normal 0.00-1.00 [facility] Comment on above: Performed By: #### C DP, GLUSC #### [facility] [address] [place] [phone] Youth Minister: Greg Castillo MD Monocytes/100 WBC (Bld) 6 % Normal 4-8 [facility] Comment on above: Performed By: #### C DP, GLUSC #### [facility] [address] [place], [place] [phone] Youth Minister: Greg Castillo MD Neutrophil (Seg) 67 % Normal 47-75 [facility] Comment on above: Performed By: #### C DP, GLUSC #### [facility] [address] [place], [place] [phone] ([phone]) Youth Minister: Greg Castillo MD Platelet mean volume (Bld) [Entitic vol] 9.5 fL Normal 6.0-12.0 [facility] Comment on above: Performed By: #### C DP, GLUSC #### [facility] [address] [place], [place] [phone] (387) Youth Minister: Greg Castillo MD Platelets (Bld) [#/Vol] 155 10*3/uL Normal 140-450 [facility] Comment on above: Performed By: #### C DP, GLUSC #### [facility] [address] [place], [place] [phone] (188) Youth Minister: Greg Castillo MD RBC (Bld) [#/Vol] 3.62 10*6/uL Low 4.00-5.20 [facility] Comment on above: Performed By: #### C DP, GLUSC #### [facility] [address] [place], [place] [phone] ([phone] Youth Minister: Greg Castillo MD WBC (Bld) [#/Vol] 6.4 10*3/uL Normal 3.5-11.0 [facility] Comment on above: Performed By: #### C DP, GLUSC #### [facility] [address] [place], [place] [phone] (731) Youth Minister: Greg Castillo MD Glucose David Scr 50gon 2023 Glucose [Mass/Vol] 108 mg/dL Normal 70-135 [facility] Comment on above: Performed By: #### C DP, GLUSC #### [facility] [address] [place] [address] Youth Minister: Greg Castillo MD Glu Administered via Glucola [facility] Comment on above: Performed By: #### C DP, GLUSC #### [facility] [address] [place] [address] Youth Minister: Greg Castillo MD Glucose tolerance, 1 houron 04-28-2023 GLU ADMN Glucola [facility] Glucose 1 Hr post 50 g glucose PO [Mass/Vol] 108 mg/dL 70 - 135 mg/dL [facility] Discharge Instructionson Discharge Instructions [id number]#1.00CD:127 Normal [facility] Auto Diffon 01-03-2023 Basophils/100 WBC (Bld) 0.5 % Normal 0.0-2.0 [facility] Comment on above: Order Comment: Order Added by Discern Expert. Performed By: #### 2 348707, 9452310, [id number], [id number] #### [facility] [address] [place] [address] Basophils/Leukocytes Auto (Bld) [Pure # fraction] 0.0 E9/L Normal 0.0-0.2 [facility] Comment on above: Order Comment: Order Added by Discern Expert. Performed By: #### 2 999299, 7789741, [id number], [id number] #### [facility] [address] [place] [address] Eosinophils/100 WBC (Bld) 0.3 % Normal 0.0-8.0 [facility] Comment on above: Order Comment: Order Added by Discern Expert. Performed By: #### 2 918678, 7983006, 53857036, 8366009 #### [facility] [address] [place] [address] Eosinophils/Leukocyte s Auto (Bld) [Pure # fraction] 0.0 E9/L Normal 0.0-0.5 [facility] Comment on above: Order Comment: Order Added by Discern Expert. Performed By: #### 2 669279, 6285861, [id number], 6055807 #### [facility] [address] [place] [address] Lymphocytes/100 WBC (Bld) 29.1 % Normal 14.0-50.0 [facility] Comment on above: Order Comment: Order Added by Discern Expert. Performed By: #### 2 700616, 0926061, 63292372, 9415304 #### [facility] [address] [place] [address] Lymphocytes/Leukocyte s Auto (Bld) [Pure # fraction] 1.7 E9/L Normal 1.0-4.0 [facility] Comment on above: Order Comment: Order Added by Kya Expert. Performed By: #### 2 880107, 3887048, 41766475, 7667627 #### [facility] [address] [place] [address] Monocytes/100 WBC (Bld) 5.1 % Normal 4.0-14.0 [facility] Comment on above: Order Comment: Order Added by Kya Expert. Performed By: #### 2 967478, 1487855, 33152938, 8162652 #### [facility] [address] [place] [address] Monocytes/Leukocytes Auto (Bld) [Pure # fraction] 0.3 E9/L Normal 0.2-1.0 [facility] Comment on above: Order Comment: Order Added by Discern Expert. Performed By: #### 2 553098, 3291416, 08062907, 2231827 #### [facility] [address] [place] [address] Neutrophils/100 WBC (Bld) 65.0 % Normal 36.0-75.0 [facility] Comment on above: Order Comment: Order Added by Kya Expert. Performed By: #### 2 652388, 1989657, 89945224, 7005270 #### [facility] [address] [place] [address] Neutrophils/Leukocyte s Auto (Bld) [Pure # fraction] 3.8 E9/L Normal 2.0-7.5 [facility] Comment on above: Order Comment: Order Added by Discern Expert. Performed By: #### 2 809381, 5371542, 28569311, 8951599 #### [facility] [address] [place] [address] BMPon 01-03-2023 Creatinine [Mass/Vol] 0.5 mg/dL Normal 0.5-1.[address] [facility] Comment on above: Performed By: #### 2 339761, 7586256, 60465150, 2965577 #### [facility] [address] [place] [address] Urea nitrogen [Mass/Vol] 8 mg/dL Normal 5-21 [facility] Comment on above: Performed By: #### 2 606241, 4949888, 72847004, 5360394 #### [facility] [address] [place] [address] Urea nitrogen/Creatinine [Mass ratio] 16 No Units Normal 10-20 [facility] Comment on above: Performed By: #### 2 328254, 9764545, 03548408, 7626506 #### [facility] [address] [place] [address] Anion gap [Moles/Vol] 7 mmol/L Normal 6-[address] [facility] Comment on above: Performed By: #### 2 298340, 4442251, 42863752, 3436068 #### [facility] [address] [place] [address] Calcium [Mass/Vol] 9.3 mg/dL Normal 8.9-11.1 [facility] Comment on above: Performed By: #### 2 796396, 7335929, 57777168, 5231735 #### [facility] [address] [place] [address] Chloride [Moles/Vol] 105 mmol/L Normal 101-111 [facility] Comment on above: Performed By: #### 2 383730, 4460629, 70282509, 6478406 #### [facility] [address] [place] [address] CO2 [Moles/Vol] 24 mmol/L Normal 21-31 [facility] Comment on above: Performed By: #### 2 708732, 8850239, 50425008, 5070624 #### [facility] [address] [place] [address] Glucose [Mass/Vol] 108 mg/dL Normal 55-199 [facility] Comment on above: Result Comment: If t his glucose result represents a fasting glucose, interpretation should refer to the following reference range: 55-99 mg/dL Performed By: #### 2 047786, 5301576, 52034639, 7908190 #### [facility] [address] [place] [address] Potassium [Moles/Vol] 3.4 mmol/L Low 3.5-5.[address] [facility] Comment on above: Performed By: #### 2 166320, 9507872, 69905310, 9543695 #### [facility] [address] [place] [address] Sodium [Moles/Vol] 133 mmol/L Low 135-145 [facility] Comment on above: Performed By: #### 2 841698, 0207118, 87081482, 5369421 #### [facility] [address] [place] [address] CBC w/ Auto Diffon 3 Erythrocyte distribution width (RBC) [Ratio] 12.5 % Normal 10.9-14.2 [facility] Comment on above: Performed By: #### 2 061303, 6591330, 83838255, 1250131 #### [facility] [address] [place] [address] Hematocrit (Bld) [Volume fraction] 39.8 % Normal 34.0-46.0 [facility] Comment on above: Performed By: #### 2 415834, 7982324, 00275874, 9468196 #### [facility] [address] [place] [address] Hemoglobin (Bld) [Mass/Vol] 14.2 g/dL Normal 12.0-16.0 [facility] Comment on above: Performed By: #### 2 878921, 7261438, 96092095, 1132783 #### [facility] [address] [place] [address] MCH (RBC) [Entitic mass] 31.7 pg Normal 27.0-34.0 [facility] Comment on above: Performed By: #### 2 299964, 8016110, 02432694, 5881540 #### [facility] [address] [place] [address] MCHC (RBC) [Mass/Vol] 35.6 g/dL Normal 31.4-36.[address] [facility] Comment on above: Performed By: #### 2 816905, 7476605, 48218545, 5324225 #### [facility] [address] [place] [address] MCV (RBC) [Entitic vol] 89.0 fL Normal 80.0-100.0 [facility] Comment on above: Performed By: #### 2 057155, 7096686, 85442384, 5580297 #### [facility] [address] [place] [address] Platelet mean volume (Bld) [Entitic vol] 7.6 fL Normal 6.4-10.8 [facility] Comment on above: Performed By: #### 2 535153, 3621683, 74284367, 5005686 #### [facility] [address] [place] [address] Platelets (Bld) [#/Vol] 170.0 E9/L Normal 150.0-500.0 [facility] Comment on above: Performed By: #### 2 173828, 4397406, 02507366, 2499167 #### [facility] [address] [place] [address] RBC (Bld) [#/Vol] 4.5 E12/L Normal 4.3-5.9 [facility] Comment on above: Performed By: #### 2 300654, 2769709, 32507112, 0607818 #### [facility] [address] [place] [address] WBC corrected for nucl RBC Auto (Bld) [#/Vol] 5.8 E9/L Normal 4.0-11.0 [facility] Comment on above: Performed By: #### 2 511576, 3682078, 48448363, 2979460 #### [facility] [address] [place] [address] CHEMISTRYOrdered By: SYSTEM SYSTEM on 01-03-2023 Anion gap [Moles/Vol] 7 mmol/L Normal 6 - 16 mEq/L [facility]isol Calcium [Mass/Vol] 9.3 mg/dL Normal 8.9 - 11. 1 mg/dL [facility] Chloride [Moles/Vol] 105 mmol/L Normal 101 - 1 11 mmol/L [facility] CO2 [Moles/Vol] 24 mmol/L Normal 21 - 31 mmol/L [facility] Creatinine [Mass/Vol] 0.5 mg/dL Normal 0.5 - 1.3 mg/dL [facility] GFR/1.73 sq M.predicted among non-blacks MDRD (S/P/Bld) [Vol rate/Area] 133 mL/min/1.73 m2 Normal >=59mL/min/1. 73 m2 [facility] Chem S Glucose [Mass/Vol] 108 mg/dL Normal [...] Treatmenton 12-25 Consent for Treatment [id number] #1.00CD:127 Normal [facility] ED Clinical Summaryon 2022 ED Clinical Summary [place] [id number] ED Clinical Summary Person Information Name: GRACIELA [place]IVAREZ [place] Age: 27 Years : 1995 Sex: Female Language: Indonesian PCP: Gloria CASTELLANOS CNP Marital Status: Visit [...] 01/03/2023 20:50:04 01/03/2023 20:50:04 01/03/2023 20:50:04 ADDRESS: [address] [place] [id number] [facility] DOC NOTES: MEDICAL INFORMATION: Prescriptions Given: Medications to Continue with No Changes Other Medications ondansetron (Zofran ODT 4 mg Tab-Dis) 1 Tablets By Mouth every 6 hours as needed Nausea/Vomiting. Refills: 0. valacyclovir (valacyclovir 1 g Tab) take 2 tab at first sign of cold sore repeat in 12 hours.. Refills: 1. PATIENT EDUCATION INFORMATION: Instructions: Morning Sickness, Nupr-ub-Fjqk Follow up: With: Address: When: Toni WATKINS [facility], [address] [place] [address] [place] [address] Business (1) In 3 days 01/06/2023 DIAGNOSIS: Nausea/vomiting in Normal [facility] ED Note-Physicianon 01-04-20 ED Note-Physician Basic Information [...] she is dehydrated. Patient is followed by NETWORK SPECIALIST, Dr. Watkins, has had an ultrasound [...] discharged home with instructions to follow with NETWORK SPECIALIST and is to return to the [...] Toni WATKINS In 3 days 01/06/[address] [place] [address]- Business (1) Additional Instructions: Patient Education Morning Sickness, Jgbx-kv-Tjza Attestation Patient was treated and evaluated by the Physician Metal Burnisher. The attending physician was in the Emergency [...] (more content not included)... Normal [facility] Comment on above: Result Comment: Elec tronically [...] these instructions at home: Medicines ? Take vxmd-kew-jxdobig and prescription medicines only as told by [...] Reviewed: 11/04/2020 Elsevier Patient Education ? 2022 [employer] Normal [facility] ED Patient Summaryon 023 ED Patient Summary [address] [address] Patient Discharge Instructions Person Information Name: GRACIELA OLIVAREZ Age: 27 Years Arrival Date: 01/03/2023 16:15:39 Discharge Diagnosis: Nausea/vomiting in Primary Care Physician: Gloria CASTELLANOS CNP Provider Information Primary Provider: Kemal Sharma DO Advanced Director Medical Safety:Velia Correa PA-C The exam and treatment you received in the Emergency Department were for an urgent problem and are not intended as complete care. It is important that you follow up with a doctor, nurse practitioner, or physician?s assistant professor of chemistry for ongoing care. If your symptoms become worse or you do not improve as expected and you are unable to reach your usual health care provider, you should return to the Emergency Department. We are available 24 hours a day. GRACIELA OLIVAREZ has been given the following list of patient education materials, prescriptions and follow-up instructions: Follow-up Instructions: With: Address: When: Toni WATKINS [facility], [address] [place] [address] [place] [address] Business (1) In 3 days 01/06/2023 In the event that this physician does not participate in your insurance network, please consult with your insurance company to find a nearby participating provider. Patient Education Materials: Morning Sickness, Hwsx-dv-Dnqv A MESSAGE TO ALL PATIENTS REGARDING OPIOIDS PRESCRIPTION OPIOIDS: WHAT YOU NEED TO KNOW Prescription opioids can be used to help relieve fhtcugkx-cj-wnpgae pain and are often prescribed following a [...] be struggling with addiction, tell your health wound care nurse and ask for guidance or call [facility]?S National [employer] (more content not included)... Normal [facility] HEMATOLOGYOrdered By: SYSTEM SYSTEM on 01-03-2023 Basophils/100 [...] 2022 Bilirubin Ql (U) 1+ Abnormal Negative [facility] Comment on above: Performed By: #### 1 [id number] #### [facility] [address] [place] [address] Clarity (U) CLEAR Normal Clear [facility] Comment on above: Performed By: #### 1 [id number] #### [facility] [address] [place] [address] Color (U) YELLOW Normal Yellow [facility] Comment on above: Performed By: #### 1 [id number] #### [facility] [address] [place] [address] Epithelial cells.squamous LM.HPF (Urine sed) [#/Area] 3-4 Normal 0-2 [facility] Comment on above: Performed By: #### 1 [id number] #### [facility] [address] [place] [address] Glucose Test strip (U) [Mass/Vol] Negative Normal Negative [facility] Comment on above: Performed By: #### 1 [id number] #### [facility] [address] [place] [address] Hemoglobin Ql (U) 2+ Abnormal Negative [facility] Comment on above: Performed By: #### 1 [id number] #### [facility] [address] [place] [address] Ketones (U) [Mass/Vol] 2+ Abnormal Negative [facility] Comment on above: Performed By: #### 1 [id number] #### [facility] [address] [place] [address] [place].plasma/Lithiu m.RBC (Bld) [Mass ratio] 0-3 Normal 0-3 [facility] Comment on above: Performed By: #### 1 [id number] #### [facility] [address] [place] [address] Mucus Ql (Urine sed) 2+ Normal [facility] Comment on above: Performed By: #### 1 [id number] #### [facility] [address] [place] [address] Nitrite Ql (U) Negative Normal Negative [facility] Comment on above: Performed By: #### 1 5372308 #### [facility] [address] [place] [address] pH (U) 6.0 [pH] Invalid Interpretation Code 5.0-9.0 [facility] Comment on above: Performed By: #### 1 [id number] #### [facility] [address] [place] [address] Protein (U) [Mass/Vol] 1+ Abnormal Negative [facility] Comment on above: Performed By: #### 1 [id number] #### [facility] [address] [place] [address] Specific gravity (U) [Rel density] >=1.030 Invalid Interpretation Code 1.005-1.030 [facility] Comment on above: Performed By: #### 1 [id number] #### [facility] [address] [place] [address] Type of Urine collection method Clean Catch Normal [facility] Comment on above: Performed By: #### 1 [id number] #### [facility] [address] [place] [address] Urobilinogen Qn (U) 1.0 {Maggy'U}/dL Normal 0.0-1.0 [facility] Comment on above: Performed By: #### 1 [id number] #### [facility] [address] [place] [address] WBC Auto Ql (U) Negative Normal Negative [facility] Comment on above: Performed By: #### 1 [id number] #### [facility] [address] [place] [id number] WBC LM.HPF (Urine sed) [#/Area] 0-5 Normal 0-5 [facility] Comment on above: Performed By: #### 1 [id number] #### [facility] [address] [id number] URINALYSISOrdered By: Dianne Ortiz on 01-03-2023 Bilirubin [...] Interpretation Code Negative [facility] UA Auto SS [place].plasma/Lith[place] m.RBC (Bld) [Mass ratio] 0-3 /HPF Normal [...] [facility] UA Auto SS Urobilinogen Qn (U) 1.2205683 {Maggy'U}/dL Normal 0.0 - 1.0 EU/dL [facility] UA Auto SS WBC Auto Ql (U) Negative (01/03/23 5:04 PM) Normal Negative [facility] UA Auto SS WBC LM.HPF (Urine sed) [#/Area] 0-5 /HPF Normal 0-5/HPF [facility] UA Auto SS eGFRon 01-03-2023 GFR/1.73 sq M.predicted among non-blacks MDRD (S/P/Bld) [Vol rate/Area] 133 mL/min/1.73 m2 Normal >=59 [facility] Comment on above: Order Comment: Order added by Discern Expert. Result Comment: Irrigation District Manager diya kidney disease could be indicated at eGFR's of less than 60 mL/min/1.73m2. Kidney failure is indicated at less than 15 mL/min/1.73m2. Performed By: #### 2 [id number] #### [place] [facility] [address] [place] [address] CULTURE URINEon 01-10-2022 CULTURE URINE Culture Observations: MODERATE GROWTH OF MIXED GENITAL RIC. NO POTENTIAL PATHOGENS SEEN. Normal [facility] Comment on above: Performed By: #### U RCX #### [facility] [address] [place] [address] Dr. Narciso Amaral UA (CLEAN/CATCH) CHILD ADOLESCENT CARE/MICRO I F IND.on 01-10-2022 Bilirubin Ql (U) Negative Normal NEGATIVE [facility] Comment on above: Performed By: #### U MICRO, UACSIND #### [facility] [address] [place] [address] Dr. Narciso Amaral Clarity (U) CLEAR Normal CLEAR [facility] Comment on above: Performed By: #### U MICRO, UACSIND #### [facility] [address] [place] [address] Dr. Narciso Amaral Color (U) LT. YELLOW Normal YELLOW [facility] Comment on above: Performed By: #### U MICRO, UACSIND #### [facility] [address] [place] [address] Dr. Narcsio Amaral Glucose Ql (U) Negative Normal NEGATIVE The [facility] Comment on above: Performed By: #### U MICRO, UACSIND #### [facility] [address] [place] [address] Dr. Narciso Amaral Hemoglobin Ql (U) LARGE Abnormal NEGATIVE The [facility] Comment on above: Performed By: #### U MICRO, UACSIND #### [facility] [address] [place] [address] Dr. Narciso Amaral Ketones Ql (U) Negative Normal NEGATIVE The [facility] Comment on above: Performed By: #### U MICRO, UACSIND #### [facility] [address] [place] [address] Dr. Narciso Amaral LEUKOCYTES TRACE Abnormal NEGATIVE [facility] Comment on above: Performed By: #### U MICRO, UACSIND #### [facility] [address] [address] [address] Narciso Amaral Nitrite Ql (U) Negative Normal NEGATIVE [facility] Comment on above: Performed By: #### U MICRO, UACSIND #### [facility] [address] [address] [address] Narciso Amaral pH (U) 6.0 [pH] Normal 5-9 [facility] Comment on above: Performed By: #### U MICRO, UACSIND #### [facility] [address] [place] [address] Dr. Narciso Amaral SPEC GRAVITY <=1.005 Abnormal 1.005-<=1.025 [facility] Comment on above: Performed By: #### U MICRO, UACSIND #### [facility] [address] [place] [address] Dr. Narciso Amaral UA PROTEIN Negative Normal NEGATIVE/ TRACE [facility] Comment on above: Performed By: #### U MICRO, UACSIND #### [facility] [address] [place] [address] Dr. Narciso Amaral UR MICRO IND INDICATED Normal [facility] Comment on above: Performed By: #### U MICRO, UACSIND #### [facility] [address] [place] [address] Dr. Narciso Amaral Urobilinogen Qn (U) 0.2 {Maggy'U}/dL Normal 0.2 - 1. 0 [facility] Comment on above: Performed By: #### U MICRO, UACSIND #### [facility] [address] [place] [address] Dr. Narciso Amaral URINE MICROSCOPIC ONLYon BACTERIA SMALL Abnormal NONE SEEN [facility] Comment on above: Performed By: #### U MICRO, UACSIND #### [facility] [address] [place] [address] Dr. Narciso Amaral Bacteria identified Cx Nom (U) INDICATED Normal [facility] Comment on above: Performed By: #### U MICRO, UACSIND #### [facility] [address] [place] [address] Dr. Narciso Amaral CAST NONE SEEN Normal NONE SEEN [facility] Comment on above: Performed By: #### U MICRO, UACSIND #### [facility] [address] [place] [address] Dr. Narciso Amaral Crystals LM Nom (Urine sed) NONE SEEN Normal NONE SEEN [facility] Comment on above: Performed By: #### U MICRO, UACSIND #### [facility] [address] [place] [address] Dr. Narciso Amaral Epithelial cells LM Ql (Urine sed) FEW Abnormal NONE SEEN /RARE [facility] Comment on above: Performed By: #### U MICRO, UACSIND #### [facility] [address] [place] [address] Dr. Narciso Amaral MUCOUS NONE SEEN Normal NONE SEEN [facility] Comment on above: Performed By: #### U MICRO, UACSIND #### [facility] [address] [place] [address] Dr. Narciso Amaral RBC 5-10 Abnormal 0-2 [facility] Comment on above: Performed By: #### U MICRO, UACSIND #### [facility] [address] [place] [address] Dr. Narciso Amaral WBC 0-2 Abnormal NONE SEEN [facility] Comment on above: Performed By: #### U MICRO, UACSIND #### [facility] [address] [place] [address] Dr. Narciso Amaral CBC AUTO DIFFon 01-09-2022 BASO # 0.0 103/ul Normal 0.0-0.1 [facility] Comment on above: Performed By: #### C BC #### [facility] [address] [place] [address] Dr. Narciso Amaral Basophils/100 WBC (Bld) 0.2 % Normal 0.2-2.0 [facility] Comment on above: Performed By: #### C BC #### [facility] [address] [place] [address] Dr. Narciso Amaral EO # 0.0 103/ul Normal 0.0-0.7 [facility] Comment on above: Performed By: #### C BC #### [facility] [address] [place] [address] Dr. Narciso Amaral Eosinophils/100 WBC (Bld) 0.1 % Critically low 0.9-7.0 [facility] Comment on above: Performed By: #### C BC #### [facility] [address] [place] [address] Dr. Narciso Amaral Erythrocyte distribution width (RBC) [Ratio] 12.8 % Normal 11.0-15.0 [facility] Comment on above: Performed By: #### C BC #### [facility] [address] [place] [address] Dr. Narciso Amaral Hematocrit (Bld) [Volume fraction] 30.8 % Critically low 36.0-48.0 [facility] Comment on above: Performed By: #### C BC #### [facility] [address] [place] [address] Dr. Narciso Amaral Hemoglobin (Bld) [Mass/Vol] 10.0 g/dL Critically low 12.0-16.0 [facility] Comment on above: Performed By: #### C BC #### [facility] [address] [place] [address] Dr. Narciso Amaral IG # 0.02 10e3/ul Normal 0.00-0.03 [facility] Comment on above: Performed By: #### C BC #### [facility] [address] [place] [address] Dr. Narciso Amaral IG % 0.2 % Normal 0.0-0.5 [facility] Comment on above: Performed By: #### C BC #### [facility] [address] [place] [address] Dr. Narciso Amaral LYMPH # 1.4 103/ul Normal 1.2-3.8 [facility] Comment on above: Performed By: #### C BC #### [facility] [address] [place] [address] Dr. Narciso Amaral Lymphocytes/100 WBC (Bld) 14.0 % Critically low 20.5-60.0 [facility] Comment on above: Performed By: #### C BC #### [facility] [address] [place] [address] Dr. Narciso Amaral MANUAL DIFF REQ NO Normal [facility] Comment on above: Performed By: #### C BC #### [facility] [address] [place] [address] Dr. Narciso Amaral MCH (RBC) [Entitic mass] 31.7 pg Normal 26.7-34.0 [facility] Comment on above: Performed By: #### C BC #### [facility] [address] [place] [address] Dr. Narciso Amaral MCHC (RBC) [Mass/Vol] 32.5 g/dL Normal 29.9-35.2 [facility] Comment on above: Performed By: #### C BC #### [facility] [address] [place] [address] Dr. Narciso Amaral MCV (RBC) [Entitic vol] 97.8 fL Normal 81.0-99.0 [facility] Comment on above: Performed By: #### C BC #### [facility] [address] [place] [address] Dr. Narciso Amaral MONO # 0.8 103/ul Normal 0.3-0.8 [facility] Comment on above: Performed By: #### C BC #### [facility] [address] [place] [address] Dr. Narciso Amaral Monocytes/100 WBC (Bld) 8.2 % Normal 1.7-12.0 [facility] Comment on above: Performed By: #### C BC #### [facility] [address] [place] [address] Dr. Narciso Amaral NEUT # 7.9 103/ul Critically high 1.4-6.5 [facility] Comment on above: Performed By: #### C BC #### [facility] [address] [place] [address] Dr. Narciso Amaral Neutrophils/100 WBC (Bld) 77.3 % Critically high 43.0-75.0 [facility] Comment on above: Performed By: #### C BC #### [facility] [address] [place] [address] Dr. Narciso Amaral Platelet mean volume (Bld) [Entitic vol] 9.9 fL Normal 9.5-13.5 [facility] Comment on above: Performed By: #### C BC #### [facility] [address] [place] [address] Dr. Narciso Amaral PLT 143 103/ul Critically low 150-450 [facility] Comment on above: Performed By: #### C BC #### [facility] [address] [place] [address] Dr. Narciso Amaral RBC 3.15 106/ul Critically low 4.20-5.40 [facility] Comment on above: Performed By: #### C BC #### [facility] [address] [place] [address] Dr. Narciso Amaral WBC 10.2 103/ul Normal 4.0-11.0 [facility] Comment on above: Performed By: #### C BC #### [facility] [address] [place] [address] Dr. Narciso Amaral CBC AUTO DIFFon 01-08-2022 BASO # 0.0 103/ul Normal 0.0-0.1 [facility] Comment on above: Performed By: #### C BC #### [facility] [address] [place] [address] Dr. Narciso Amaral Basophils/100 WBC (Bld) 0.3 % Normal 0.2-2.0 [facility] Comment on above: Performed By: #### C BC #### [facility] [address] [place] [address] Dr. Narciso Amaral EO # 0.0 103/ul Normal 0.0-0.7 [facility] Comment on above: Performed By: #### C BC #### [facility] [address] [place] [address] Dr. Narciso Amaral Eosinophils/100 WBC (Bld) 0.4 % Critically low 0.9-7.0 [facility] Comment on above: Performed By: #### C BC #### [facility] [address] [place] [address] Dr. Narciso Amaral Erythrocyte distribution width (RBC) [Ratio] 12.7 % Normal 11.0-15.0 [facility] Comment on above: Performed By: #### C BC #### [facility] [address] [place] [address] Dr. Narciso Amaral Hematocrit (Bld) [Volume fraction] 38.0 % Normal 36.0-48.0 [facility] Comment on above: Performed By: #### C BC #### [facility] [address] [place] [address] Dr. Narciso Amaral Hemoglobin (Bld) [Mass/Vol] 12.5 g/dL Normal 12.0-16.0 [facility] Comment on above: Performed By: #### C BC #### [facility] [address] [place] [address] Dr. Narciso Amraal IG # 0.03 10e3/ul Normal 0.00-0.03 [facility] Comment on above: Performed By: #### C BC #### [facility] [address] [place] [address] Dr. Narciso Amaral IG % 0.4 % Normal 0.0-0.5 [facility] Comment on above: Performed By: #### C BC #### [facility] [address] [place] [address] Dr. Narciso Amaral LYMPH # 1.3 103/ul Normal 1.2-3.8 [facility] Comment on above: Performed By: #### C BC #### [facility] [address] [place] [address] Dr. Narciso Amaral Lymphocytes/100 WBC (Bld) 17.6 % Critically low 20.5-60.0 [facility] Comment on above: Performed By: #### C BC #### [facility] [address] [place] [address] Dr. Narciso Amaral MANUAL DIFF REQ NO Normal [facility] Comment on above: Performed By: #### C BC #### [facility] [address] [place] [address] Dr. Narciso Amaral MCH (RBC) [Entitic mass] 31.6 pg Normal 26.7-34.0 [facility] Comment on above: Performed By: #### C BC #### [facility] [address] [place] [address] Dr. Narciso Amaral MCHC (RBC) [Mass/Vol] 32.9 g/dL Normal 29.9-35.2 [facility] Comment on above: Performed By: #### C BC #### [facility] [address] [place] [address] Dr. Narciso Amaral MCV (RBC) [Entitic vol] 96.0 fL Normal 81.0-99.0 [facility] Comment on above: Performed By: #### C BC #### [facility] [address] [place] [address] Dr. Narciso Amaral MONO # 0.5 103/ul Normal 0.3-0.8 [facility] Comment on above: Performed By: #### C BC #### [facility] [address] [place] [address] Dr. Narciso Amaral Monocytes/100 WBC (Bld) 6.2 % Normal 1.7-12.0 [facility] Comment on above: Performed By: #### C BC #### [facility] [address] [place] [address] Dr. Narciso Amaral NEUT # 5.5 103/ul Normal 1.4-6.5 [facility] Comment on above: Performed By: #### C BC #### [facility] [address] [place] [address] Dr. Narciso Amaral Neutrophils/100 WBC (Bld) 75.1 % Critically high 43.0-75.0 [facility] Comment on above: Performed By: #### C BC #### [facility] [address] [place] [address] Dr. Narciso Amaral Platelet mean volume (Bld) [Entitic vol] 10.3 fL Normal 9.5-13.5 [facility] Comment on above: Performed By: #### C BC #### [facility] [address] [address] [address] Narciso Amaral PLT 159 103/ul Normal 150-450 [facility] Comment on above: Performed By: #### C BC #### [facility] [address] [address] [address] Narciso Amaral RBC 3.96 106/ul Critically low 4.20-5.40 [facility] Comment on above: Performed By: #### C BC #### [facility] [address] [address] [address] Narciso Amaral WBC 7.4 103/ul Normal 4.0-11.0 [facility] Comment on above: Performed By: #### C BC #### [facility] [address] [place] [address] Dr. Narciso Amaral [facility] SARS-CoV-2 (COVID-19) RNA MOHAN+probe Ql (Unsp spec) Not detected Normal NOT DETECTED [facility] Comment on above: Result Comment: When [...] for this test is supported by the [place] of Health and Human Service's declaration that [...] used). Performed By: #### C VDTBH #### [facility] [address] [place] [address] Dr. Narciso Amaral DRUG SCREEN RAPID (URINE)on 01-08-2022 AMP Negative Normal NEGATIVE [facility] Comment on above: Performed By: #### C T/NGNA #### [facility] [address] [place] [address] Dr. Narciso Amaral BAR Negative Normal NEGATIVE [facility] Comment on above: Performed By: #### C T/NGNA #### [facility] [address] [place] [address] Dr. Narciso Amaral BUP Negative Normal NEGATIVE [facility] Comment on above: Performed By: #### C T/NGNA #### [facility] [address] [place] [address] Dr. Narciso Amaral BZO Negative Normal NEGATIVE [facility] Comment on above: Performed By: #### C T/NGNA #### [facility] [address] [place] [address] Dr. Narciso Amaral TREY Negative Normal NEGATIVE [facility] Comment on above: Performed By: #### C T/NGNA #### [facility] [address] [place] [address] Dr. Narciso Amaral CUT-OFFS SEE BELOW Normal [facility] Comment on above: Result Comment: AMP [...] ng/mL Performed By: #### C T/NGNA #### [facility] [address] [place] [address] Dr. Narciso Amaral DRUG CUT HEADER DRUG CLASS TEST SYSTEM CUT-OFF CONCENTRATIONS ARE FOLLOWS: Normal [facility] Comment on above: Performed By: #### C T/NGNA #### [facility] [address] [place] [address] Dr. Narciso Amaral mAMP Negative Normal NEGATIVE [facility] Comment on above: Performed By: #### C T/NGNA #### [facility] [address] [place] [address] Dr. Narciso Amaral MTD Negative Normal NEGATIVE [facility] Comment on above: Performed By: #### C T/NGNA #### [facility] [address] [place] [address] Dr. Narciso Amaral OPI Negative Normal NEGATIVE [facility] Comment on above: Performed By: #### C T/NGNA #### [facility] [address] [address] [address] Narciso Amaral OXY Negative Normal NEGATIVE [facility] Comment on above: Performed By: #### C T/NGNA #### [facility] [address] [place] [address] Dr. Narciso Amaral PCP Negative Normal NEGATIVE [facility] Comment on above: Performed By: #### C T/NGNA #### [facility] [address] [place] [address] Dr. Narciso Amaral PPX Negative Normal NEGATIVE [facility] Comment on above: Performed By: #### C T/NGNA #### [facility] [address] [address] [address] Narciso Amaral TCA Negative Normal NEGATIVE [facility] Comment on above: Performed By: #### C T/NGNA #### [facility] [address] [place] [address] Dr. Narciso Amaral THC Negative Normal NEGATIVE [facility] Comment on above: Performed By: #### C T/NGNA #### [facility] [address] [place] [address] Dr. Narciso Amaral TYPE AND SCREENon 01-08-2022 TYPE AND SCREEN Negative Normal [facility] Comment on above: Performed By: #### C T/NGNA #### [facility] [address] [place] [address] Dr. Narciso Amaral US PREG BIOPHY W [...] KRISTINA ESTRADA Date: 2022-01-07 16:20 Normal [facility] US PREG BIOPHY W NON STRESSo [...] KRISTINA ESTRADA Date: 2021-12-31 16:27 Normal [facility] VAGINITIS/VAGINOSIS DNA PROB Julius 12-26-2021 Fany species Negative Normal Negative [facility] Comment on above: Performed By: #### C BC #### [facility] [address] [address] [address] Narciso Amaral Gardnerella vaginalis Negative Normal Negative [facility] Comment on above: Performed By: #### C BC #### [facility] [address] [address] [address] Narciso Amaral Trichomonas vaginalis Negative Normal Negative [facility] Comment on above: Performed By: #### C BC #### [facility] [address] [address] [address] Narciso Amaral US PREG BIOPHY W [...] by: KRISTINA ESTRADA Date: 2021-12-25 09:13 Normal [facility] GROUP B STREP CULTUREon 11-26 S. agalactiae Ag Ql (Unsp spec) Culture Observations: NEGATIVE FOR GROUP B STREPTOCOCCUS. Normal [facility] Comment on above: Performed By: #### C T/HAWA #### [facility] [address] [place] [address] Dr. Narciso Amaral US PREG GROWTHon 12-24-2021 US PREG GROWTH Ultrasound biophysical profile Ultrasound obstetrical, limited CLINICAL: Oligohydramnios follow-up. TECHNIQUE: Transabdominal obstetrical ultrasound was performed. Ultrasound biophysical profile was also performed by magazine hand. FINDINGS: 09/29/2021. FETUS AND PLACENTA: There is [...] gestational age according to Hadlock criteria. Remarks: Rug Touch Up Painter reports that Dr. Watkins is aware of findings. Electronically authenticated by: AMPARO PATEL Date: 2021-12-24 12:27 [facility] Hematocrit (Bld) [Volume fraction] 35.7 % Low 36 - 46 % [facility] Hemoglobin (Bld) [Mass/Vol] 11.9 g/dL Low 12.0 - 16.0 g/dL [facility] Interpretation and review of laboratory results Abnormal [facility] MCH (RBC) [Entitic mass] 32.8 pg 26 - 34 pg [facility] MCHC (RBC) [Mass/Vol] 33.4 g/dL 31 - 37 g/dL B ON [facility] MCV (RBC) [Entitic vol] 98.1 fL 80 - 100 fL [facility] Platelet distribution width (Bld) [Ratio] 12.1 % 12.1 - 15.2 % [facility] Platelets (Bld) [#/Vol] 178 10*3/uL [facility] RBC (Bld) [#/Vol] 3.64 10*6/uL Low 4.0 - 5.2 m/uL [facility] WBC (Bld) [#/Vol] 7.6 10*3/uL [facility] Glucose tolerance, 1 houron 10-28-2021 GLU ADMN Glucola [facility] Glucose tolerance screen 50g 134 mg/dL 70 - 135 mg/dL [facility] US PREG INCOMPLETE ANATOMYon 09-29-2021 US [...] by: GREG RODNEY Date: 2021-09-29 08:50 Normal [facility] US PREG ANATOMY SINGLEon US PREG [...] KRISTINA ESTRADA Date: 2021-09-01 16:26 Normal [facility] AFP MATERNAL FOR SPINA BIFID Aon 08-25-2021 AFP MoM 0.71 Normal [facility] Comment on above: Performed By: #### C BC #### [facility] [address] [address] [address] Narciso Amaral AFP Value 45.2 ng/mL Normal [facility] Comment on above: Performed By: #### C BC #### [facility] [address] [address] [address] Narciso Amaral AFP, Serum for Spina Bifida Report Normal [facility] Comment on above: Performed By: #### C BC #### [facility] [address] [address] [address] Narciso Amaral Comment Comment Normal [facility] Comment on above: Result Comment: Ky Magallon, Ph.D., [facility] Director . References: Available Upon Request. . Multiples Of Median Cutoffs For AFP Elevations Bernstein 2.5 Black 2.8 IDD 2.0 Twins 4.5 Abbreviation Definitions IDD - Insulin Dep Diabetes OSBR - Open Spina Bifida Risk . For further inquiries contact [employer] [facility] at [phone]. Performed By: #### C BC #### [facility] [address] [address] [address] Narciso Echevarria Age Collection Date 19.0 weeks Normal [facility] Comment on above: Performed By: #### C BC #### [facility] [address] [address] [address] Narciso Amaral Gestat, Age Based on LMP Normal [facility] Comment on above: Result Comment: Reca lculations are not recommended when gestational dating by LMP and ultrasound are within 10 days. Performed By: #### C BC #### [facility] [address] [address] [address] Narciso Amaral Insulin Dep Diabetes No Normal [facility] Comment on above: Performed By: #### C BC #### [facility] [address] [address] [address] Narciso Amaral Interpretation Comment Normal [facility] Comment on above: Result Comment: Inte [...] older. Performed By: #### C BC #### [facility] [address] [address] [address] Narciso Amaral [age] Normal [facility] Comment on above: Performed By: #### C BC #### [facility] [address] [address] [address] Narciso Amaral Multiple Gestation No Normal [facility] Comment on above: Performed By: #### C BC #### [facility] [address] [place] [address] Dr. Narciso Amaral [place] [address] Normal [facility] Comment on above: Performed By: #### C BC #### [facility] [address] [place] [address] Dr. Narciso Amaral PDF . [facility] Comment on above: Performed By: #### C BC #### [facility] [address] [place] [address] Dr. Narciso Amaral Race [facility] Comment on above: Performed By: #### C BC #### [facility] [address] [address] [address] Narciso Amaral Test Results: Negative [facility] Comment on above: Performed By: #### C BC #### [facility] [address] [place] [address] Dr. Narciso Amaral PAP ACOG PANEL 2: 21 to 29on 08-23-2021 . . [facility] Comment on above: Performed By: #### C BC #### [facility] [address] [place] [address] Dr. Narciso Amaral Age Gdln ACOG Testing - [facility] Comment on above: Performed By: #### C BC #### [facility] [address] [place] [address] Dr. Narciso Amaral DIAGNOSIS: Comment [facility] Comment on above: Result Comment: NEGA TIVE FOR INTRAEPITHELIAL LESION OR MALIGNANCY. Performed By: #### C BC #### [facility] [address] [place] [address] Dr. Narciso Amaral Methodology: Comment [facility] Comment on above: Result Comment: This liquid based ThinPrep(R) pap test was screened with the use of an image guided system. Performed By: #### C BC #### [facility] [address] [place] [address] Dr. Narciso Amaral Note: Comment [facility] Comment on above: Result Comment: The Pap smear is a screening test designed to aid in the detection of premalignant and malignant conditions of the uterine cervix. It is not a diagnostic procedure and should not be used as the sole means of detecting cervical cancer. Both false-positive and false-negative reports do occur. . Performed By: #### C BC #### [facility] [address] [place] [address] Dr. Narciso Amaral Performed by: Comment Normal [facility] Comment on above: Result Comment: Nani [employer], Extractor And Wringer Operator (ASCP) Performed By: #### C BC #### [facility] [address] [place] [address] Dr. Narciso Amaral Reflex Criteria: Comment Normal [facility] Comment on above: Result Comment: The HPV DNA reflex criteria were not met with this specimen result therefore, no HPV testing was performed. . Performed By: #### C BC #### [facility] [address] [place] [address] Dr. Narciso Amaral Specimen adequacy: Comment Normal [facility] Comment on above: Result Comment: Sati sfactory for evaluation. No endocervical component is identified. Performed By: #### C BC #### [facility] [address] [place] [address] Dr. Narciso Amaral CHLAMYDIA/GONOCOCCUS MOHAN (SW AB/URINE/PAPon 08-21-2021 Chlamydia trachomatis, MOHAN Negative Normal Negative [facility] Comment on above: Performed By: #### C T/NGNA #### [facility] [address] [place] [address] Dr. Narciso Amaral Neisseria gonorrhoeae, MOHAN Negative Normal Negative [facility] Comment on above: Performed By: #### C T/NGNA #### [facility] [address] [place] [address] Dr. Narciso Amaral HEP B SURFACE ANTIGEN SCREEN on 07-04-2021 HBsAg Screen Negative Normal Negative [facility] Comment on above: Performed By: #### N BOX #### [facility] [address] [place] [address] Dr. Narciso Amaral HEPATITIS C VIRUS AB W/ REFL EX QUANTon 07-04-2021 HCV AB <0.1 Normal 0.0-0.9 [facility] Comment on above: Performed By: #### C BC #### [facility] [address] [place] [address] Dr. Narciso Amaral Interpretation: Comment Normal [facility] Comment on above: Result Comment: Nega tive Not infected with HCV, unless recent infection is suspected or other evidence exists to indicate HCV infection. Performed By: #### C BC #### [facility] [address] [place] [address] Dr. Narciso Amaral HIV 1 AND 2 WITH REFLEXon HIV Screen 4th Generation wRfx Non-Reactive Normal Non Reactive [facility] Comment on above: Result Comment: HIV Negative HIV-1/HIV-2 antibodies and HIV-1 p24 antigen were NOT detected. There is no laboratory evidence of HIV infection. Performed By: #### N BOX #### [facility] [address] [place] [address] Dr. Narciso Amaral RPR QUANTon 07-04-2021 Rapid Plasma Reagin, Quant Non-Reactive Normal NonRea<1:1 [facility] Comment on above: Performed By: #### C BC #### [facility] [address] [place] [address] Dr. Narciso Amaral RUBELLA AB IGGon 07-04-2021 Rubella Antibodies, IgG <0.90 Critically low Immune >0.99 [facility] Comment on above: Result Comment: Non- immune <0.90 Equivocal 0.90 - 0.99 Immune >0.99 Performed By: #### R UBIGG #### [facility] [address] [place] [address] Dr. Narciso Amaral CBC AUTO DIFFon 07-03-2021 BASO # 0.0 103/ul Normal 0.0-0.1 [facility] Comment on above: Performed By: #### C BC #### [facility] [address] [place] [address] Dr. Narciso Amaral Basophils/100 WBC (Bld) 0.4 % Normal 0.2-2.0 [facility] Comment on above: Performed By: #### C BC #### [facility] [address] [place] [address] Dr. Narciso Amaral EO # 0.0 103/ul Normal 0.0-0.7 [facility] Comment on above: Performed By: #### C BC #### [facility] [address] [place] [address] Dr. Narciso Amaral Eosinophils/100 WBC (Bld) 0.4 % Critically low 0.9-7.0 [facility] Comment on above: Performed By: #### C BC #### [facility] [address] [place] [address] Dr. Narciso Amaral Erythrocyte distribution width (RBC) [Ratio] 11.9 % Normal 11.0-15.0 [facility] Comment on above: Performed By: #### C BC #### [facility] [address] [place] [address] Dr. Narciso Amaral Hematocrit (Bld) [Volume fraction] 33.0 % Critically low 36.0-48.0 [facility] Comment on above: Performed By: #### C BC #### [facility] [address] [place] [address] Dr. Narciso Amaral Hemoglobin (Bld) [Mass/Vol] 11.3 g/dL Critically low 12.0-16.0 [facility] Comment on above: Performed By: #### C BC #### [facility] [address] [place] [address] Dr. Narciso Amaral IG # 0.01 10e3/ul Normal 0.00-0.03 [facility] Comment on above: Performed By: #### C BC #### [facility] [address] [place] [address] Dr. Narciso Amaral IG % 0.2 % Normal 0.0-0.5 [facility] Comment on above: Performed By: #### C BC #### [facility] [address] [place] [address] Dr. Narciso Amaral LYMPH # 1.9 103/ul Normal 1.2-3.8 [facility] Comment on above: Performed By: #### C BC #### [facility] [address] [place] [address] Dr. Narciso Amaral Lymphocytes/100 WBC (Bld) 35.9 % Normal 20.5-60.0 [facility] Comment on above: Performed By: #### C BC #### [facility] [address] [place] [address] Dr. Narciso Amaral MANUAL DIFF REQ NO Normal [facility] Comment on above: Performed By: #### C BC #### [facility] [address] [place] [address] Dr. Narciso Amaral MCH (RBC) [Entitic mass] 31.6 pg Normal 26.7-34.0 [facility] Comment on above: Performed By: #### C BC #### [facility] [address] [place] [address] Dr. Narciso Amaral MCHC (RBC) [Mass/Vol] 34.2 g/dL Normal 29.9-35.2 [facility] Comment on above: Performed By: #### C BC #### [facility] [address] [place] [address] Dr. Narciso Amaral MCV (RBC) [Entitic vol] 92.2 fL Normal 81.0-99.0 [facility] Comment on above: Performed By: #### C BC #### [facility] [address] [place] [address] Dr. Narciso Amaral MONO # 0.2 103/ul Critically low 0.3-0.8 [facility] Comment on above: Performed By: #### C BC #### [facility] [address] [place] [address] Dr. Narciso Amaral Monocytes/100 WBC (Bld) 4.2 % Normal 1.7-12.0 [facility] Comment on above: Performed By: #### C BC #### [facility] [address] [place] [address] Dr. Narciso Amaral NEUT # 3.1 103/ul Normal 1.4-6.5 [facility] Comment on above: Performed By: #### C BC #### [facility] [address] [place] [address] Dr. Narciso Amaral Neutrophils/100 WBC (Bld) 58.9 % Normal 43.0-75.0 [facility] Comment on above: Performed By: #### C BC #### [facility] [address] [address] [address] Narciso Amaral Platelet mean volume (Bld) [Entitic vol] 10.4 fL Normal 9.5-13.5 [facility] Comment on above: Performed By: #### C BC #### [facility] [address] [address] [address] Narciso Amaral PLT 158 103/ul Normal 150-450 [facility] Comment on above: Performed By: #### C BC #### [facility] [address] [address] [address] Narciso Amaral RBC 3.58 106/ul Critically low 4.20-5.40 [facility] Comment on above: Performed By: #### C BC #### [facility] [address] [place] [address] Dr. Narciso Amaral WBC 5.2 103/ul Normal 4.0-11.0 [facility] Comment on above: Performed By: #### C BC #### [facility] [address] [address] [address] Narciso Amaral CULTURE URINEon 07-03-2021 CULTURE URINE Culture Observations: No growth Normal [facility] Comment on above: Performed By: #### U RCX #### [facility] [address] [place] [address] Dr. Narciso Amaral GLYCOHEMOGLOBIN A1Con 2021 ADA RECOMMENDATION ADA THERAPEUTIC TARGET 6.0 - 7.0 ACTION SUGGESTED > 7.0 Normal [facility] Comment on above: Performed By: #### N BOX #### [facility] [address] [place] [address] Dr. Narciso Amaral Glucose [Mass/Vol] 88 mg/dL Normal [facility] Comment on above: Performed By: #### N BOX #### [facility] [address] [address] [address] Narciso Amaral HbA1c (Bld) [Mass fraction] 4.7 % Normal <=6.0 [facility] Comment on above: Performed By: #### N BOX #### [facility] [address] [place] [address] Dr. Narciso ARIAS TEST PT SEND OUTo n 07-03-2021 SENT TO REF LAB 07/03/2021 Normal [facility] Comment on above: Performed By: #### N BOX #### [facility] [address] [place] [address] Dr. Narciso Amaral TYPE AND SCREENon 07-03-2021 TYPE AND SCREEN Negative Normal [facility] Comment on above: Performed By: #### C T/NGNA #### [facility] [address] [place] [address] Dr. Narciso Amaral CBC AUTO DIFFon 06-17-2021 BASO # 0.0 103/ul Normal 0.0-0.1 [facility] Comment on above: Performed By: #### N BOX #### [facility] [address] [place] [address] Dr. Narciso Amaral Basophils/100 WBC (Bld) 0.4 % Normal 0.2-2.0 [facility] Comment on above: Performed By: #### N BOX #### [facility] [address] [place] [address] Dr. Narciso Amaral EO # 0.0 103/ul Normal 0.0-0.7 [facility] Comment on above: Performed By: #### N BOX #### [facility] [address] [place] [address] Dr. Narciso Amaral Eosinophils/100 WBC (Bld) 0.0 % Critically low 0.9-7.0 [facility] Comment on above: Performed By: #### N BOX #### [facility] [address] [place] [address] Dr. Narciso Amaral Erythrocyte distribution width (RBC) [Ratio] 11.6 % Normal 11.0-15.0 [facility] Comment on above: Performed By: #### N BOX #### [facility] [address] [place] [address] Dr. Narciso Amaral Hematocrit (Bld) [Volume fraction] 42.6 % Normal 36.0-48.0 [facility] Comment on above: Performed By: #### N BOX #### [facility] [address] [address] [address] Narciso Amaral Hemoglobin (Bld) [Mass/Vol] 14.9 g/dL Normal 12.0-16.0 [facility] Comment on above: Performed By: #### N BOX #### [facility] [address] [address] [address] Narciso Amaral IG # 0.02 10e3/ul Normal 0.00-0.03 [facility] Comment on above: Performed By: #### N BOX #### [facility] [address] [place] [address] Dr. Narciso Amaral IG % 0.3 % Normal 0.0-0.5 [facility] Comment on above: Performed By: #### N BOX #### [facility] [address] [place] [address] Dr. Narciso Amaral LYMPH # 2.1 103/ul Normal 1.2-3.8 [facility] Comment on above: Performed By: #### N BOX #### [facility] [address] [place] [address] Dr. Narciso Amaral Lymphocytes/100 WBC (Bld) 28.8 % Normal 20.5-60.0 [facility] Comment on above: Performed By: #### N BOX #### [facility] [address] [place] [address] Dr. Narciso Amaral MANUAL DIFF REQ NO Normal [facility] Comment on above: Performed By: #### N BOX #### [facility] [address] [place] [address] Dr. Narciso Amaral MCH (RBC) [Entitic mass] 31.6 pg Normal 26.7-34.0 [facility] Comment on above: Performed By: #### N BOX #### [facility] [address] [place] [address] Dr. Narciso Amaral MCHC (RBC) [Mass/Vol] 35.0 g/dL Normal 29.9-35.2 [facility] Comment on above: Performed By: #### N BOX #### [facility] [address] [place], [place] [address] Dr. Narciso Amaral MCV (RBC) [Entitic vol] 90.4 fL Normal 81.0-99.0 [facility] Comment on above: Performed By: #### N BOX #### [facility] [address] [place] [address] Dr. Narciso Amaral MONO # 0.3 103/ul Normal 0.3-0.8 [facility] Comment on above: Performed By: #### N BOX #### [facility] [address] [place] [address] Dr. Narciso Amaral Monocytes/100 WBC (Bld) 4.6 % Normal 1.7-12.0 [facility] Comment on above: Performed By: #### N BOX #### [facility] [address] [place] [address] Dr. Narciso Amaral NEUT # 4.7 103/ul Normal 1.4-6.5 [facility] Comment on above: Performed By: #### N BOX #### [facility] [address] [place] [address] Dr. Narciso Amaral Neutrophils/100 WBC (Bld) 65.9 % Normal 43.0-75.0 [facility] Comment on above: Performed By: #### N BOX #### [facility] [address] [place] [address] Dr. Narciso Amaral Platelet mean volume (Bld) [Entitic vol] 9.7 fL Normal 9.5-13.5 [facility] Comment on above: Performed By: #### N BOX #### [facility] [address] [place] [address] Dr. Narciso Amaral PLT 199 103/ul Normal 150-450 [facility] Comment on above: Performed By: #### N BOX #### [facility] [address] [place] [address] Dr. Narciso Amaral RBC 4.71 106/ul Normal 4.20-5.40 [facility] Comment on above: Performed By: #### N BOX #### [facility] [address] [place] [address] Dr. Narciso Amaral WBC 7.1 103/ul Normal 4.0-11.0 [facility] Comment on above: Performed By: #### N BOX #### [facility] [address] [place] [address] Dr. Narciso WILL URINE PROFILEon 2 Bilirubin Ql (U) Negative Normal NEGATIVE [facility] Comment on above: Performed By: #### E RUR #### [facility] [address] [place] [address] Dr. Narciso Amaral Clarity (U) SL CLOUDY Abnormal CLEAR [facility] Comment on above: Performed By: #### E RUR #### [facility] [address] [place] [address] Dr. Narciso Amaral Color (U) YELLOW Normal YELLOW [facility] Comment on above: Performed By: #### E RUR #### [facility] [address] [place] [address] Dr. Narciso HARTMANNAHHerberth A micrscopic examination will be performed if indicated. Normal [facility] Comment on above: Performed By: #### E RUR #### [facility] [address] [place] [address] Dr. Narciso Amaral Glucose Ql (U) Negative Normal NEGATIVE [facility] Comment on above: Performed By: #### E RUR #### [facility] [address] [place] [address] Dr. Narciso Amaral Hemoglobin Ql (U) Negative Normal NEGATIVE [facility] Comment on above: Performed By: #### E RUR #### [facility] [address] [place] [address] Dr. Narciso Amaral Ketones Ql (U) >=80 Abnormal NEGATIVE [facility] Comment on above: Performed By: #### E RUR #### [facility] [address] [place] [address] Dr. Narciso Amaral LEUKOCYTES Negative Normal NEGATIVE [facility] Comment on above: Performed By: #### E RUR #### [facility] [address] [place] [address] Dr. Narciso Amaral Nitrite Ql (U) Negative Normal NEGATIVE [facility] Comment on above: Performed By: #### E RUR #### [facility] [address] [place] [address] Dr. Narciso Amaral pH (U) 6.0 [pH] Normal 5-9 [facility] Comment on above: Performed By: #### E RUR #### [facility] [address] [place] [address] Dr. Narciso Amaral SPEC GRAVITY >=1.030 Abnormal 1.005-<=1.025 [facility] Comment on above: Performed By: #### E RUR #### [facility] [address] [place] [address] Dr. Narciso Amaral UA PROTEIN TRACE Normal NEGATIVE/ TRACE [facility] Comment on above: Performed By: #### E RUR #### [facility] [address] [place] [address] Dr. Narciso Amaral UR MICRO IND NOT INDICATED Normal [facility] Comment on above: Performed By: #### E RUR #### [facility] [address] [place] [address] Dr. Narciso Amaral Urobilinogen Qn (U) 1.0 {Maggy'U}/dL Normal 0.2 - 1. 0 [facility] Comment on above: Performed By: #### E RUR #### [facility] [address] [place] [address] Dr. Narciso Amaral PROF 14(COMP METB)on 022 Albumin [Mass/Vol] 4.6 g/dL Normal 3.5-5.0 [facility] Comment on above: Performed By: #### C BC #### [facility] [address] [place] [address] Dr. Narciso Amaral Albumin/Globulin [Mass ratio] 1.0 {ratio} Normal [facility] Comment on above: Performed By: #### C BC #### [facility] [address] [place] [address] Dr. Narciso Amaral ALP [Catalytic activity/Vol] 54 U/L Normal 38-126 [facility] Comment on above: Performed By: #### C BC #### [facility] [address] [address] [address] Narciso Amaral ALT [Catalytic activity/Vol] 12 U/L Normal 9-52 [facility] Comment on above: Performed By: #### C BC #### [facility] [address] [address] [address] Narciso Amaral Anion gap [Moles/Vol] 14.8 mmol/L Normal [facility] Comment on above: Performed By: #### C BC #### [facility] [address] [address] [address] Narciso Amaral AST [Catalytic activity/Vol] 11 U/L Critically low 14-36 [facility] Comment on above: Performed By: #### C BC #### [facility] [address] [place] [address] Dr. Narciso Amaral Bilirubin [Mass/Vol] 0.9 mg/dL Normal 0.2-1.3 [facility] Comment on above: Performed By: #### C BC #### [facility] [address] [place] [address] Dr. Narciso Amaral Calcium [Mass/Vol] 9.6 mg/dL Normal 8.4-10.2 [facility] Comment on above: Performed By: #### C BC #### [facility] [address] [place] [address] Dr. Narciso Amaral Chloride [Moles/Vol] 98 mmol/L Normal 98-107 [facility] Comment on above: Performed By: #### C BC #### [facility] [address] [address] [address] Narciso Amaral CO2 [Moles/Vol] 27.3 mmol/L Normal 22.0-30.0 [facility] Comment on above: Performed By: #### C BC #### [facility] [address] [place] [address] Dr. Narciso Amaral Creatinine [Mass/Vol] 0.55 mg/dL Normal 0.52-1.04 [facility] Comment on above: Performed By: #### C BC #### [facility] [address] [address] [address] Narciso Amaral EGFR-AF CONGOLESE >60 Normal >=60 [facility] Comment on above: Performed By: #### C BC #### [facility] [address] [address] [address] Narciso Amaral EGFR-NON AF CONGOLESE >60 Normal >=60 [facility] Comment on above: Performed By: #### C BC #### [facility] [address] [address] [address] Narciso Amaral Globulin (S) [Mass/Vol] 4.7 g/dL Normal [facility] Comment on above: Performed By: #### C BC #### [facility] [address] [address] [address] Narciso Amaral Glucose [Mass/Vol] 87 mg/dL Normal 74-106 [facility] Comment on above: Performed By: #### C BC #### [facility] [address] [place] [address] Dr. Narciso Amaral Potassium [Moles/Vol] 3.1 mmol/L Critically low 3.4-5.0 [facility] Comment on above: Performed By: #### C BC #### [facility] [facility] [address] [place] [address] Dr. Narciso Amaral Protein [Mass/Vol] 9.3 g/dL Critically high 6.1-8.2 [facility] Comment on above: Performed By: #### C BC #### [facility] [address] [address] [address] Narciso Amaral Sodium [Moles/Vol] 137 mmol/L Normal 137-145 [facility] Comment on above: Performed By: #### C BC #### [facility] [address] [place] [address] Dr. Narciso Amaral Urea nitrogen [Mass/Vol] 11.0 mg/dL Normal 7.0-17.0 [facility] Comment on above: Performed By: #### C BC #### [facility] [address] [address] [address] Narciso Amaral Urea nitrogen/Creatinine [Mass ratio] 20.0 mg/mg Normal [facility] Comment on above: Performed By: #### C BC #### [facility] [address] [place] [address] Dr. Narciso Amaral US PREG TVon 06-17-2021 [...] by: KRISTINA ESTRADA Date: 2021-06-17 17:29 Normal [facility] Vital Signs Date Time Vital Sign Value Performing Clinician Facility 05-31-2023 08:51-0500 Body mass index (BMI) [Ratio] 22.85 kg/m2 Lydia DOLAN Work Phone: [facility] 05-31-2023 08:51-0500 Body weight 60.38 kg Lydia DOLAN Work Phone: [facility] 05-31-2023 08:51-0500 Diastolic blood pressure 66 mm[Hg] Lydia DOLAN Work Phone: [facility] 05-31-2023 08:51-0500 Systolic blood pressure 102 mm[Hg] Lydia DOLAN Work Phone: [facility] 01-03-2023 20:48-0400 Diastolic blood pressure 66 mm[Hg] Kemal Sharma [facility] 01-03-2023 20:48-0400 Heart rate 68 /min Kemal Sharma [facility] 01-03-2023 20:48-0400 Respiratory rate 18 /min Kemal Sharma [facility] 01-03-2023 20:48-0400 SaO2% (BldA) [Mass fraction] 99 % Kemal Zachary [facility] 01-03-2023 20:48-0400 Systolic blood pressure 110 mm[Hg] Kemal Zachary [facility] 01-03-2023 19:55-0400 Hourly Rounding Kemal Zachary [facility] 01-03-2023 19:53-0400 Diastolic blood pressure 71 mm[Hg] Kemal Zachary [facility] 01-03-2023 19:53-0400 Heart rate 70 /min Kemal Zachary [facility] 01-03-2023 19:53-0400 Respiratory rate 18 /min Kemal Zachary [facility] 01-03-2023 19:53-0400 SaO2% (BldA) [Mass fraction] 99 % Kemal Zachary [facility] 01-03-2023 19:53-0400 Systolic blood pressure 106 mm[Hg] Kemal Zachary [facility] 01-03-2023 18:55-0400 Diastolic blood pressure 74 mm[Hg] Kemal Zachary [facility] 01-03-2023 18:55-0400 Heart rate 74 /min Kemal Zachary [facility] 01-03-2023 18:55-0400 Hourly Rounding Kemal Zachary [facility] 01-03-2023 18:55-0400 Respiratory rate 16 /min Kemal Zachary [facility] 01-03-2023 18:55-0400 SaO2% (BldA) [Mass fraction] 99 % Kemal Zachary [facility] 01-03-2023 18:55-0400 Systolic blood pressure 108 mm[Hg] Kemal Sharma [facility] 01-03-2023 17:55-0400 Hourly Rounding Kemal Sharma [facility] 01-03-2023 17:55-0400 Promise to Return Kemal Sharma [facility] 01-03-2023 16:55-0400 Body temperature 98.06 [degF] Kemal Sharma [facility] 08-25-2021 20:06-0400 Body weight 51.[address] TONI WATKINS [facility] Comment on above: Performed By: #### CBC #### [facility] [address] [place] [address] Dr. Narciso Amaral Encounters Encounter Date Encounter Type Care Provider Facility Start: 06-17-2023 End: 06-17-2023 ambulatory TONI TRES Not Available Start: 05-31-2023 End: 05-31-2023 ambulatory LYDIA GALLO Not Available Start: 05-31-2023 End: 05-31-2023 flow sheet Lydia Gallo PA Work Phone: [facility] Comment on above: Third trimester preg jordana Start: 05-06-2023 End: 05-06-2023 ambulatory TONI TRES Not Available Start: 04-28-2023 End: 04-29-2023 [facility] Start: 04-28-2023 End: 04-28-2023 Subsequent hospital visit by physician [facility] Start: 04-12-2023 End: 04-12-2023 ambulatory LYDIA GALLO Not Available Start: 03-08-2023 End: 03-08-2023 ambulatory TONI TRES Not Available Start: 01-03-2023 End: 01-03-2023 Emergency department patient visit Kemal Sharma Facility:[facility] Start: 01-03-2023 End: 01-03-2023 Emergency department patient visit Kemal GalindoFadmuo Zachary [facility] Start: 01-21-[address] TONI WATKINS [...] Start: 10-28-2021 Blood count complete automated Blake Higginbtoham Work Phone: prosthesis Left eye Kemal Daugherty Plan of Treatment Date Care Activity Detail Author Start: 06-17-2023 End: 06-17-2023 Patient encounter procedure 06/17/2023 10:10 AM EST Routine [facility] [address] [place] [id number] Toni Watkins, [address] [place] [address] [facility] Start: 05-31-2023 End: 05-31-2023 Patient encounter procedure 05/31/2023 12:30 PM EST Routine [facility] [address] [place] [id number] [facility] Start: 05-04-2023 End: 05-04-2023 Patient encounter procedure 05/04/2023 1:30 PM EST Routine [facility] [address] [place] [address] [facility] Start: 11-24-2022 Influenza vaccination Flu vaccine (# 1) [facility] Start: 12-25-2021 Influenza vaccination Flu vaccine (# 1) [facility] Start: 2017 Screening for malign ant neoplasm of cervix Pap smear [facility] Start: 04-07-2016 DTaP/Tdap/Td vaccine (1 - Tdap) DTaP/Tdap/Td vaccine (1 - Tdap) [facility] Start: 2014 Hepatitis C screening Hepatitis C sc reen [facility] Start: 08-01-2011 HIV screening HIV screen [facility] Start: 2008 Depression Screen Depression Screen [facility] Start: 08-01-2007 HPV vaccine (1 - 2-d ose series) HPV vaccine (1 - 2-dose series) [facility] Start: 2001 COVID-19 Vaccine (1) COVID-19 Vaccin e (1) [facility] Start: 1997 Varicella vaccine (1 of 2 - 2-dose childhood series) Varicella vaccine (1 of 2 - 2-dose childhood series) [facility] Start: 01-30-1997 COVID-19 Vaccine (#1) COVID-19 Vacci ne (#1) [facility] Start: 1996 Hepatitis B vaccine (1 of 3 - 3-dose series) Hepatitis B vaccine (1 of 3 - 3-dose series) [facility] Payers Date Payer Category Payer Unknown 1996 Unknown [id number] 2.16.84 0.1.006950.3.579.2.593 1996 Unknown [id number] 2.16.84 0.1.864153.3.579.2.593 1996 Unknown [id number] 2.16.84 0.1.680606.3.579.2.593 1996 Unknown [id number] 2.16.84 0.1.880825.3.579.2.593 1996 Unknown [id number] 2.16.84 0.1.926215.3.579.2.593 1996 Unknown [id number] 2.16.84 0.1.612594.3.579.2.593 1996 Unknown [id number] 2.16.84 0.1.549237.3.579.2.593 1996 Unknown [id number] 2.16.84 0.1.295369.3.579.2.593 1996 Unknown [id number] 2.16.84 0.1.764163.3.579.2.593 1996 Unknown [id number] 2.16.84 0.1.769477.3.579.2.593 1996 Unknown [id number] 2.16.84 0.1.082915.3.579.2.593 1996 Unknown [id number] 2.16.84 0.1.234463.3.579.2.593 1996 Unknown [id number] 2.16.84 0.1.934432.3.579.2.593 1996 Unknown [id number] 2.16.84 0.1.884627.3.579.2.593 1996 Unknown [id number] 2.16.84 0.1.650304.3.579.2.593 1996 Unknown [id number] 2.16.84 0.1.380728.3.579.2.593 1996 Unknown [id number] 2.16.84 0.1.969884.3.579.2.593 1996 Unknown [id number] 2.16.8 40.1.888817.3.579.2.727 1996 Unknown [id number] 2.16.8 40.1.601005.3.579.2.174 1996 Unknown [id number] 2.16.84 0.1.711465.3.579.2.1259 1996 Unknown [id number] 2.16.84 0.1.406614.3.579.2.1259 1996 Unknown [id number] 2.16.84 0.1.856864.3.579.2.1259 1996 Unknown [id number] 2.16.840 .1.351065.3.579.2.1259 1996 Unknown [id number] 2.16.840. 1.794933.3.579.2.1259 1959 Self-pay [id number] 1959 Self-pay 1959 Unknown [id number] 1.2.840.[id number] Unknown [id number] 2.16.84 0.1.344400.3.579.2.593 Social History Date Type Detail Facility Tobacco smoking status [facility] Tobacco smoking consumption unknown [employer] Work Phone: Start: 1995 Sex Assigned At Not on file [employer] Work Phone: Start: 04-05-2021 End: 04-07-2023 Tobacco smoking status Never smoked tobacco (finding) [facility] Tobacco smoking status Never [facility] Start: 04-20-2023 Sex Assigned At Female [facility] Start: 04-07-2023 Tobacco use and exposure Smokeless tobacco non-user [employer] Start: 04-20-2023 Alcohol intake Lifetime non-d jay (finding) [employer] Start: 04-20-2023 History of Social function [employer] Start: 11-12-2022 Ordr.in NEGATED: Highlighted rowStart: NINF History of tobacco use Passive smoker [employer] Functional Status Date Assessment Result Facility 01-03-2023 Functional Status N/A [facility] History of Present illness Narrative [...] and states received a steroid while in [place] for shortened cervix. Pt to have nst [...] of: MAGDALENO Garsia documented in this encounter [facility] Discharge instructions 01-03-2023 Note Date & Type Note Facility 01-03-2023 Hospital Discharg e instructions Patient Education 01/03/2023 20:50:05 Morning Sickness, Ffhr-lz-Njlu Morning Sickness Morning sickness is when you [...] Follow these instructions at home: Medicines Take ylev-ehx-jdlrrni and prescription medicines only as told by [...] provider. Document Revised: 11/25/2020 Document Reviewed: 11/04/2020 [employer] Patient Education 2022 [employer]. Follow Up Care 01/03/2023 16:18:17 With:Toni WATKINS Address: [address] , [place] [address] Business (1) When:01/06/2023 20:40:46 [facility] Evaluation + Plan note 01-03-2023 Note [...] discharged home with instructions to follow with [facility] and is to return to the ED with any new or worsening symptoms. Patient voices understanding is agreeable to plan [facility] Evaluation note Note Date & Type Note Facility Evaluation note Diagnosis Third trimester state, incidental documented in this encounter [facility] Hospital course Narrative Note Date & Type Note Facility Hospital course Narrative No data available for this section [facility] Progress note Note Date & Type Note Facility Progress note No data available for this section [facility] Summary Purpose Family History No Family History Records FoundNo Family History Records FoundNo Family History Records FoundNo Family History Records Found Advance Directives No Advanced Directives Records FoundNo Advanced Directives Records FoundNo Advanced Directives Records FoundNo Advanced Directives Records Found Additional Source Comments INFORMATION SOURCE (unrecogn ized section and content) DATE CREATED AUTHOR 01/21/2022 [facility] DATE CREATED AUTHOR AUTHOR'S ORGANIZ ATION 01/07/2023 [facility] DATE CREATED AUTHOR AUTHOR'S ORGANIZ ATION 04/29/2023 Nancy Hayden [facility] DATE CREATED AUTHOR AUTHOR'S ORGANIZ ATION 06/25/2023 [facility] Patient Care team informatio n (unrecognized section and content) Personnel Name: Gloria CASTELLANOS CNP Address: Address: [address] [place] [address] Dr. Blake, [facility] Reason for Visit (unrecogniz ed section and [...] BE BASED ON THE PRIMARY CLINICAL RECORDS. [facility] [employer] [facility]. provides no warranty or guarantee of the accuracy or completeness of information in this document.
--- NOTE | 2023-07-05 | US_ITS ---
[address] [address] Patient Name: DOMINIK FRANCO MRN: [id number] date: 1995 Sex: F Assigned Patient Location: US Current Patient Location: Accession/Order Number: [id number] Exam Date: 07/05/2023 09:50 Report Date: 07/05/2023 11:45 At the request of: TONI JOSHUA Procedure: US OB BPP w non-stress EXAMINATION: US OB BPP w non-stress HISTORY: ANTEPARTUM PLACANTA CIRCUMBALLATA O43.119 COMPARISON: No relevant comparison available. TECHNIQUE: Ultrasound biophysical profile was performed in the radiology department. FINDINGS: BREATHING MOVEMENTS: 2.0 GROSS BODY MOVEMENTS: 2.0 TONE: 2.0 QUALITATIVE AMNIOTIC FLUID VOLUME: 2.0 PRESENTATION: CEPHALIC HEART RATE: 137.1 bpm H.B./min AMNIOTIC FLUID VOLUME: 10.3 cm cm GESTATIONAL AGE: 35 weeks 4 days CONCLUSION: Total biophysical profile score: 8.0 Electronically authenticated by: GREG RODNEY Date: 07/05/2023 11:45
--- OUTSIDE RECORDS SUMMARY | 2023-07-05 07:41 | XMS_ITS | CCD ---
Author Name Unknown Address [id number] [place] [address] Organization [facility] Care Team Providers Care Call Worker Person Name Role Phone Unavailable Primary Care Provider [...] Amoxicillin; Translations: [amoxicillin] Drug Allergy 2 [facility] Repository (3 sources) Amoxicillin; Translations: [amoxicillin] Drug Allergy 3 rash [facility] [place] (1 source) Penicillins Propensity to adverse reactions to drug 3 Rash [facility] (2 sources) Penicillins Drug Allergy 3 Rash, [...] # 16 tab(s), Refills(s) 1, Pharmacy: [id number], 168, cm, 04/09/20 15:23:00 EST, Height/Length Dosing, 50.7, kg, 04/09/20 15:23:00 EST, Weight Dosing Start Date: 04/09/20 Status: Ordered Zofran ODT 4 mg Tab-Dis (1 source) Start: 06-09-2021 take 1 tablet by mouth every six hours as needed for nausea Zofran ODT 4 mg Tab-Dis 4 mg = 1 tab(s), Oral, q6hr, PRN Nausea/Vomiting, # 12 tab(s), Refills(s) 0, Pharmacy: [facility], 165.1, cm, 06/09/21 2:43:00 EST, Height/Length [...] applicable or unspecified; Translations: [MAT CARE OTH UT FTL GRTH 3RD TM UNS] Onset: 12-31-2021 [...] Differentialon 04-28-2023 Basophils (Bld) [#/Vol] 0.03 10*3/uL [facility] Basophils/100 WBC (Bld) 1 % 0 - 2 % [facility] Eosinophils (Bld) [#/Vol] 0.04 10*3/uL [facility] Eosinophils/100 WBC (Bld) 1 % 0 - 5 % [facility] Erythrocyte distribution width (RBC) [Ratio] 11.8 % Low 12.1 - 15.2 % [facility] Hematocrit (Bld) [Volume fraction] 35.4 % Low 36.0 - 46.0 % [facility] Hemoglobin (Bld) [Mass/Vol] 11.9 g/dL Low 12.0 - 16.0 g/dL [facility] Immature granulocytes (Bld) [#/Vol] 0.04 10*3/uL [facility] Immature granulocytes/100 WBC (Bld) 1 % 0 - 5 % [facility] Interpretation and review of laboratory results Abnormal [facility] Lymphocytes/100 WBC (Bld) 24 % 15 - 40 % [facility] Lymphocytes/100 WBC (Bld) 1.53 % [facility] MCH (RBC) [Entitic mass] 32.9 pg 26.0 - 34.0 pg [facility] MCHC (RBC) [Mass/Vol] 33.6 g/dL 31.0 - 37.0 g/dL [facility] MCV (RBC) [Entitic vol] 97.8 fL 80.0 - 100.0 fL [facility] Monocytes/100 WBC (Bld) 6 % 4 - 8 % [facility] Monocytes/100 WBC (Bld) 0.41 % [facility] Neutrophils/100 WBC (Bld) 67 % 47 - 75 % [facility] Platelet mean volume (Bld) [Entitic vol] 9.5 fL 6.0 - 12.0 fL [facility] Platelets (Bld) [#/Vol] 155 10*3/uL [facility] RBC (Bld) [#/Vol] 3.62 10*6/uL Low 4.00 - 5.2 0 m/uL [facility] Segmented neutrophils/100 WBC (Bld) 4.37 % [facility] WBC other (Bld) [#/Vol] 6.4 [facility] CBC with Diffon 04-28-2023 Abs. Basophil 0.03 k/uL Normal 0.00-0.20 [facility] Comment on above: Performed By: #### C DP, GLUSC #### [facility] [address] [place] [address] Hand Booked Folder And Stitcher: Greg Castillo MD Abs.Imm.Granulocyte 0.04 k/uL Normal 0.00-0.30 [facility] Comment on above: Performed By: #### C DP, GLUSC #### [facility] [address] [place] [address] Hand Booked Folder And Stitcher: Greg Castillo MD Abs.Neutrophil (Seg) 4.37 k/uL Normal 2.5-7.0 [facility] Comment on above: Performed By: #### C DP, GLUSC #### [facility] [address] [place] [address] Hand Booked Folder And Stitcher: Greg Castillo MD Basophils/100 WBC (Bld) 1 % Normal 0-2 [facility] Comment on above: Performed By: #### C DP, GLUSC #### [facility] [address] [place] [phone] Hand Booked Folder And Stitcher: Greg Castillo MD Eosinophils (Bld) [#/Vol] 0.04 10*3/uL Normal 0.00-0.40 [facility] Comment on above: Performed By: #### C DP, GLUSC #### [facility] [address] [place], [place] [phone] Hand Booked Folder And Stitcher: Greg Castillo MD Eosinophils/100 WBC (Bld) 1 % Normal 0-5 [facility] Comment on above: Performed By: #### C DP, GLUSC #### [facility] [address] [place] [phone] Hand Booked Folder And Stitcher: Greg Castillo MD Erythrocyte distribution width (RBC) [Ratio] 11.8 % Low 12.1-15.2 [facility] Comment on above: Performed By: #### C DP, GLUSC #### [facility] [address] [place] [phone] Hand Booked Folder And Stitcher: Greg Castillo MD Hematocrit (Bld) [Volume fraction] 35.4 % Low 36.0-46.0 [facility] Comment on above: Performed By: #### C DP, GLUSC #### [facility] [address] [place] [phone] Hand Booked Folder And Stitcher: Greg Castillo MD Hemoglobin (Bld) [Mass/Vol] 11.9 g/dL Low 12.0-16.0 [facility] Comment on above: Performed By: #### C DP, GLUSC #### [facility] [address] [place] [phone] Hand Booked Folder And Stitcher: Greg Castillo MD Immature granulocytes/100 WBC (Bld) 1 % Normal 0-[address] [place] [address] Comment on above: Performed By: #### C DP, GLUSC #### [facility] [address] [place] [phone] Hand Booked Folder And Stitcher: Greg Castillo MD Lymphocytes (Bld) [#/Vol] 1.53 10*3/uL Normal 1.00-4.80 [facility] Comment on above: Performed By: #### C DP, GLUSC #### [facility] [address] [place] [phone] Hand Booked Folder And Stitcher: Greg Castillo MD Lymphocytes/100 WBC (Bld) 24 % Normal 15-40 [facility] Comment on above: Performed By: #### C DP, GLUSC #### [facility] [address] [place] [phone] Hand Booked Folder And Stitcher: Greg Castillo MD MCH (RBC) [Entitic mass] 32.9 pg Normal 26.0-34.0 [facility] Comment on above: Performed By: #### C DP, GLUSC #### [facility] [address] [place] [address] Hand Booked Folder And Stitcher: Greg Castillo MD MCHC (RBC) [Mass/Vol] 33.6 g/dL Normal 31.0-37.0 [facility] Comment on above: Performed By: #### C DP, GLUSC #### [facility] [address] [place] [phone] Hand Booked Folder And Stitcher: Greg Castillo MD MCV (RBC) [Entitic vol] 97.8 fL Normal 80.0-100.0 [facility] Comment on above: Performed By: #### C DP, GLUSC #### [facility] [address] [place] [address] Hand Booked Folder And Stitcher: Greg Castillo MD Monocytes (Bld) [#/Vol] 0.41 10*3/uL Normal 0.00-1.00 [facility] Comment on above: Performed By: #### C DP, GLUSC #### [facility] [address] [place] [phone] Hand Booked Folder And Stitcher: Greg Castillo MD Monocytes/100 WBC (Bld) 6 % Normal 4-8 [facility] Comment on above: Performed By: #### C DP, GLUSC #### [facility] [address] [place], [place] [phone] ([phone] Hand Booked Folder And Stitcher: Greg Castillo MD Neutrophil (Seg) 67 % Normal 47-75 [facility] Comment on above: Performed By: #### C DP, GLUSC #### [facility] [address] [place], [place] [phone] ([phone] Hand Booked Folder And Stitcher: Greg Castillo MD Platelet mean volume (Bld) [Entitic vol] 9.5 fL Normal 6.0-12.0 [facility] Comment on above: Performed By: #### C DP, GLUSC #### [facility] [address] [place], [place] [phone] ([phone] Hand Booked Folder And Stitcher: Greg Castillo MD Platelets (Bld) [#/Vol] 155 10*3/uL Normal 140-450 [facility] Comment on above: Performed By: #### C DP, GLUSC #### [facility] [address] [place], [place] [phone] ([phone] Hand Booked Folder And Stitcher: Greg Castillo MD RBC (Bld) [#/Vol] 3.62 10*6/uL Low 4.00-5.20 [facility] Comment on above: Performed By: #### C DP, GLUSC #### [facility] [address] [place], [place] [phone] ([phone] Hand Booked Folder And Stitcher: Greg Castillo MD WBC (Bld) [#/Vol] 6.4 10*3/uL Normal 3.5-11.0 [facility] Comment on above: Performed By: #### C DP, GLUSC #### [facility] [address] [place], [place] [phone] ([phone] Hand Booked Folder And Stitcher: Greg Castillo MD Glucose David Scr 50gon 2023 Glucose [Mass/Vol] 108 mg/dL Normal 70-135 [facility] Comment on above: Performed By: #### C DP, GLUSC #### [facility] [address] [place] [address] Hand Booked Folder And Stitcher: Greg Castillo MD Glu Administered via Glucola [facility] Comment on above: Performed By: #### C DP, GLUSC #### [facility] [address] [place] [address] Hand Booked Folder And Stitcher: Greg Castillo MD Glucose tolerance, 1 houron 04-28-2023 GLU ADMN Glucola [facility] Glucose 1 Hr post 50 g glucose PO [Mass/Vol] 108 mg/dL 70 - 135 mg/dL [facility] Discharge Instructionson Discharge Instructions [id number]#1.00CD:127 Normal [facility] Auto Diffon 01-03-2023 Basophils/100 WBC (Bld) 0.5 % Normal 0.0-2.0 [facility] Comment on above: Order Comment: Order Added by Discern Expert. Performed By: #### 2 698339, 7383262, [id number], [id number] #### [facility] [address] [place] [address] Basophils/Leukocytes Auto (Bld) [Pure # fraction] 0.0 E9/L Normal 0.0-0.2 [facility] Comment on above: Order Comment: Order Added by Discern Expert. Performed By: #### 2 025736, 5292191, 11298657, 4144655 #### [facility] [address] [place] [address] Eosinophils/100 WBC (Bld) 0.3 % Normal 0.0-8.0 [facility] Comment on above: Order Comment: Order Added by Discern Expert. Performed By: #### 2 673967, 9575790, 17191477, 3439006 #### [facility] [address] [place] [address] Eosinophils/Leukocyte s Auto (Bld) [Pure # fraction] 0.0 E9/L Normal 0.0-0.5 [facility] Comment on above: Order Comment: Order Added by Discern Expert. Performed By: #### 2 384413, 0997199, 34787233, 4746192 #### [facility] [address] [place] [address] Lymphocytes/100 WBC (Bld) 29.1 % Normal 14.0-50.0 [facility] Comment on above: Order Comment: Order Added by Discern Expert. Performed By: #### 2 161214, 4034298, 27734702, 4511906 #### [facility] [address] [place] [address] Lymphocytes/Leukocyte s Auto (Bld) [Pure # fraction] 1.7 E9/L Normal 1.0-4.0 [facility] Comment on above: Order Comment: Order Added by Kya Expert. Performed By: #### 2 812752, 2465658, 21081755, 7818489 #### [facility] [address] [place] [address] Monocytes/100 WBC (Bld) 5.1 % Normal 4.0-14.0 [facility] Comment on above: Order Comment: Order Added by Kya Expert. Performed By: #### 2 219633, 8993948, 00814514, 0966120 #### [facility] [address] [place] [address] Monocytes/Leukocytes Auto (Bld) [Pure # fraction] 0.3 E9/L Normal 0.2-1.0 [facility] Comment on above: Order Comment: Order Added by Discern Expert. Performed By: #### 2 741174, 9033397, 69111553, 9780913 #### [facility] [address] [place] [address] Neutrophils/100 WBC (Bld) 65.0 % Normal 36.0-75.0 [facility] Comment on above: Order Comment: Order Added by Kya Expert. Performed By: #### 2 584098, 6566426, 94466374, 3652750 #### [facility] [address] [place] [address] Neutrophils/Leukocyte s Auto (Bld) [Pure # fraction] 3.8 E9/L Normal 2.0-7.5 [facility] Comment on above: Order Comment: Order Added by Discern Expert. Performed By: #### 2 856567, 0305582, 89889873, 6372410 #### [facility] [address] [place] [address] BMPon 01-03-2023 Creatinine [Mass/Vol] 0.5 mg/dL Normal 0.5-1.3 [facility] Comment on above: Performed By: #### 2 999633, 4301534, 78596444, 8852240 #### [facility] [address] [place] [address] Urea nitrogen [Mass/Vol] 8 mg/dL Normal 5-21 [facility] Comment on above: Performed By: #### 2 630278, 4949403, 57112328, 9429890 #### [facility] [address] [place] [address] Urea nitrogen/Creatinine [Mass ratio] 16 No Units Normal 10-20 [facility] Comment on above: Performed By: #### 2 909395, 7514913, 97443821, 6621618 #### [facility] [address] [place] [address] Anion gap [Moles/Vol] 7 mmol/L Normal 6-16 [facility] Comment on above: Performed By: #### 2 252910, 1536723, 78341965, 3282839 #### [facility] [address] [place] [address] Calcium [Mass/Vol] 9.3 mg/dL Normal 8.9-11.1 [facility] Comment on above: Performed By: #### 2 938878, 0226112, 81480090, 7911788 #### [facility] [address] [place] [address] Chloride [Moles/Vol] 105 mmol/L Normal 101-111 [facility] Comment on above: Performed By: #### 2 521545, 3481480, 50384861, 1754138 #### [facility] [address] [place] [address] CO2 [Moles/Vol] 24 mmol/L Normal 21-31 [facility] Comment on above: Performed By: #### 2 936942, 4317275, 84416615, 2290617 #### [facility] [address] [place] [address] Glucose [Mass/Vol] 108 mg/dL Normal 55-199 [facility] Comment on above: Result Comment: If t his glucose result represents a fasting glucose, interpretation should refer to the following reference range: 55-99 mg/dL Performed By: #### 2 287472, 8751353, 10616815, 4295117 #### [facility] [address] [place] [address] Potassium [Moles/Vol] 3.4 mmol/L Low 3.5-5.3 [facility] Comment on above: Performed By: #### 2 810618, 5251352, 65664033, 0130538 #### [facility] [address] [place] [address] Sodium [Moles/Vol] 133 mmol/L Low 135-145 [facility] Comment on above: Performed By: #### 2 150529, 8072954, 34574531, 8008740 #### [facility] [address] [place] [address] CBC w/ Auto Diffon 3 Erythrocyte distribution width (RBC) [Ratio] 12.5 % Normal 10.9-14.2 [facility] Comment on above: Performed By: #### 2 398877, 0917360, 38477293, 0178542 #### [facility] [address] [place] [address] Hematocrit (Bld) [Volume fraction] 39.8 % Normal 34.0-46.0 [facility] Comment on above: Performed By: #### 2 343354, 3011849, 54131747, 0822266 #### [facility] [address] [place] [address] Hemoglobin (Bld) [Mass/Vol] 14.2 g/dL Normal 12.0-16.0 [facility] Comment on above: Performed By: #### 2 327695, 0665060, 04332324, 9487177 #### [facility] [address] [place] [address] MCH (RBC) [Entitic mass] 31.7 pg Normal 27.0-34.0 [facility] Comment on above: Performed By: #### 2 936213, 1067616, 56050245, 6628234 #### [facility] [address] [place] [address] MCHC (RBC) [Mass/Vol] 35.6 g/dL Normal 31.4-36.0 [facility] Comment on above: Performed By: #### 2 622434, 0215031, 41346989, 0404772 #### [facility] [address] [place] [address] MCV (RBC) [Entitic vol] 89.0 fL Normal 80.0-100.0 [facility] Comment on above: Performed By: #### 2 896514, 3310997, 83024391, 8103818 #### [facility] [address] [place] [address] Platelet mean volume (Bld) [Entitic vol] 7.6 fL Normal 6.4-10.8 [facility] Comment on above: Performed By: #### 2 263875, 1187980, 87118794, 4128656 #### [facility] [address] [place] [address] Platelets (Bld) [#/Vol] 170.0 E9/L Normal 150.0-500.0 [facility] Comment on above: Performed By: #### 2 436100, 3792059, 08079676, 8980769 #### [facility] [address] [place] [address] RBC (Bld) [#/Vol] 4.5 E12/L Normal 4.3-5.9 [facility] Comment on above: Performed By: #### 2 812360, 2460162, 93143561, 6395529 #### [facility] [address] [place] [address] WBC corrected for nucl RBC Auto (Bld) [#/Vol] 5.8 E9/L Normal 4.0-11.0 [facility] Comment on above: Performed By: #### 2 820718, 3452154, 28114703, 6703321 #### [facility] [address] [place] [address] CHEMISTRYOrdered By: SYSTEM SYSTEM on 01-03-2023 Anion gap [Moles/Vol] 7 mmol/L Normal 6 - 16 mEq/L [facility] Calcium [Mass/Vol] 9.3 mg/dL Normal 8.9 - 11. 1 mg/dL [facility] Chloride [Moles/Vol] 105 mmol/L Normal 101 - 1 11 mmol/L [facility] CO2 [Moles/Vol] 24 mmol/L Normal 21 - 31 mmol/L [facility] Creatinine [Mass/Vol] 0.5 mg/dL Normal 0.5 - 1.3 mg/dL [facility] GFR/1.73 sq M.predicted among non-blacks MDRD (S/P/Bld) [Vol rate/Area] 133 mL/min/1.73 m2 Normal >=59mL/min/1. 73 m2 [facility] Chem S Glucose [Mass/Vol] 108 mg/dL Normal [...] Treatmenton 12-25 Consent for Treatment [id number] #1.00CD:127 Normal [facility] ED Clinical Summaryon 2022 ED Clinical Summary [place] [id number] ED Clinical Summary Person Information Name: GRACIELA OLIVAREZ [place] Age: 27 Years : 1995 Sex: Female Language: Ukrainian PCP: Gloria CASTELLANOS CNP Marital Status: Visit [...] 01/03/2023 20:50:04 01/03/2023 20:50:04 01/03/2023 20:50:04 ADDRESS: [address] [place] [id number] [facility] DOC NOTES: MEDICAL INFORMATION: Prescriptions Given: Medications to Continue with No Changes Other Medications ondansetron (Zofran ODT 4 mg Tab-Dis) 1 Tablets By Mouth every 6 hours as needed Nausea/Vomiting. Refills: 0. valacyclovir (valacyclovir 1 g Tab) take 2 tab at first sign of cold sore repeat in 12 hours.. Refills: 1. PATIENT EDUCATION INFORMATION: Instructions: Morning Sickness, Hgzi-dd-Kzjm Follow up: With: Address: When: Toni WATKINS [facility], [address] [place] [address] [place] [address] Business (1) In 3 days 01/06/2023 DIAGNOSIS: Nausea/vomiting in Normal [facility] ED Note-Physicianon 01-04-20 ED Note-Physician Basic [...] she is dehydrated. Patient is followed by WOODWORKING CRAFTSMAN, Dr. Watkins, has had an ultrasound which [...] discharged home with instructions to follow with WOODWORKING CRAFTSMAN and is to return to the ED [...] Toni WATKINS In 3 days 01/06/[address] [place] [address]- Business (1) Additional Instructions: Patient Education Morning Sickness, Ewdy-vt-Tevq Attestation Patient was treated and evaluated by the Physician Senior Oracle Database Administrator. The attending physician was in the Emergency [...] unknown (more content not included)... Normal [facility] Comment on above: Result Comment: Elec [...] these instructions at home: Medicines ? Take zirl-vgb-dbgigcj and prescription medicines only as told by [...] Reviewed: 11/04/2020 Elsevier Patient Education ? 2022 [employer] Normal [facility] ED Patient Summaryon 023 ED Patient Summary [address] [address] Patient Discharge Instructions Person Information Name: GRACIELA OLIVAREZ Age: 27 Years Arrival Date: 01/03/2023 16:15:39 Discharge Diagnosis: Nausea/vomiting in Primary Care Physician: Gloria CASTELLANOS CNP Provider Information Primary Provider: Kemal Sharma DO Advanced Radiology Special Procedure Tech:Velia Correa PA-C The exam and treatment you received in the Emergency Department were for an urgent problem and are not intended as complete care. It is important that you follow up with a doctor, nurse practitioner, or physician?s car rental sales assistant for ongoing care. If your symptoms become worse or you do not improve as expected and you are unable to reach your usual health care provider, you should return to the Emergency Department. We are available 24 hours a day. GRAICELA OLIVAREZ has been given the following list of patient education materials, prescriptions and follow-up instructions: Follow-up Instructions: With: Address: When: Toni WATKINS [facility], [address] [place] [address] [place] [address] Business (1) In 3 days 01/06/2023 In the event that this physician does not participate in your insurance network, please consult with your insurance company to find a nearby participating provider. Patient Education Materials: Morning Sickness, Bmcw-do-Twtz A MESSAGE TO ALL PATIENTS REGARDING OPIOIDS PRESCRIPTION OPIOIDS: WHAT YOU NEED TO KNOW Prescription opioids can be used to help relieve qsuewfpq-yk-jsxgwc pain and are often prescribed following a [...] be struggling with addiction, tell your health health care coach and ask for guidance or call [facility]?S [employer] (more content not included)... Normal [facility] HEMATOLOGYOrdered By: SYSTEM SYSTEM on 01-03-2023 [...] 2022 Bilirubin Ql (U) 1+ Abnormal Negative [facility] Comment on above: Performed By: #### 1 [id number] #### [facility] [address] [place] [address] Clarity (U) CLEAR Normal Clear [facility] Comment on above: Performed By: #### 1 [id number] #### [facility] [address] [place] [address] Color (U) YELLOW Normal Yellow [facility] Comment on above: Performed By: #### 1 [id number] #### [facility] [address] [place] [address] Epithelial cells.squamous LM.HPF (Urine sed) [#/Area] 3-4 Normal 0-2 [facility] Comment on above: Performed By: #### 1 [id number] #### [facility] [address] [place] [address] Glucose Test strip (U) [Mass/Vol] Negative Normal Negative [facility] Comment on above: Performed By: #### 1 [id number] #### [facility] [address] [place] [address] Hemoglobin Ql (U) 2+ Abnormal Negative [facility] Comment on above: Performed By: #### 1 [id number] #### [facility] [address] [place] [address] Ketones (U) [Mass/Vol] 2+ Abnormal Negative [facility] Comment on above: Performed By: #### 1 [id number] #### [facility] [address] [place] [address] [place].plasma/Lithiu m.RBC (Bld) [Mass ratio] 0-3 Normal 0-3 [facility] Comment on above: Performed By: #### 1 [id number] #### [facility] [address] [place] [address] Mucus Ql (Urine sed) 2+ Normal [facility] Comment on above: Performed By: #### 1 [id number] #### [facility] [address] [place] [address] Nitrite Ql (U) Negative Normal Negative [facility] Comment on above: Performed By: #### 1 1367996 #### [facility] [address] [place] [address] pH (U) 6.0 [pH] Invalid Interpretation Code 5.0-9.0 [facility] Comment on above: Performed By: #### 1 [id number] #### [facility] [facility] [address] [place] [address] Protein (U) [Mass/Vol] 1+ Abnormal Negative [facility] Comment on above: Performed By: #### 1 [id number] #### [facility] [address] [place] [address] Specific gravity (U) [Rel density] >=1.030 Invalid Interpretation Code 1.005-1.030 [facility] Comment on above: Performed By: #### 1 [id number] #### [facility] [address] [place] [address] Type of Urine collection method Clean Catch Normal [facility] Comment on above: Performed By: #### 1 [id number] #### [facility] [address] [place] [address] Urobilinogen Qn (U) 1.0 {Maggy'U}/dL Normal 0.0-1.0 [facility] Comment on above: Performed By: #### 1 [id number] #### [facility] [address] [place] [address] WBC Auto Ql (U) Negative Normal Negative [facility] Comment on above: Performed By: #### 1 [id number] #### [facility] [address] [place] [address] WBC LM.HPF (Urine sed) [#/Area] 0-5 Normal 0-5 [facility] Comment on above: Performed By: #### 1 [id number] #### [facility] [address] [id number] URINALYSISOrdered By: Dianne Ortiz on 01-03-2023 Bilirubin [...] Interpretation Code Negative [facility] UA Auto SS [place].plasma/Lithiu m.RBC (Bld) [Mass ratio] 0-3 /HPF [...] [facility] UA Auto SS Urobilinogen Qn (U) 1.7117658 {Maggy'U}/dL Normal 0.0 - 1.0 EU/dL [facility] UA Auto SS WBC Auto Ql (U) Negative (01/03/23 5:04 PM) Normal Negative [facility] UA Auto SS WBC LM.HPF (Urine sed) [#/Area] 0-5 /HPF Normal 0-5/HPF [facility] UA Auto SS eGFRon 01-03-2023 GFR/1.73 sq M.predicted among non-blacks MDRD (S/P/Bld) [Vol rate/Area] 133 mL/min/1.73 m2 Normal >=59 [facility] Comment on above: Order Comment: Order added by Discern Expert. Result Comment: Supermarket Manager diya kidney disease could be indicated at eGFR's of less than 60 mL/min/1.73m2. Kidney failure is indicated at less than 15 mL/min/1.73m2. Performed By: #### 2 [id number] #### [facility] [address] [place] [address] CULTURE URINEon 01-10-2022 CULTURE URINE Culture Observations: MODERATE GROWTH OF MIXED GENITAL RIC. NO POTENTIAL PATHOGENS SEEN. Normal [facility] Comment on above: Performed By: #### U RCX #### [facility] [address] [place] [address] Dr. Narciso Amaral UA (CLEAN/CATCH) TECHNICAL AID/MICRO I F IND.on 01-10-2022 Bilirubin Ql (U) Negative Normal NEGATIVE [facility] Comment on above: Performed By: #### U MICRO, UACSIND #### [facility] [address] [place] [address] Dr. Narciso Amaral Clarity (U) CLEAR Normal CLEAR [facility] Comment on above: Performed By: #### U MICRO, UACSIND #### [facility] [address] [place] [address] Dr. Narciso Amaral Color (U) LT. YELLOW Normal YELLOW [facility] Comment on above: Performed By: #### U MICRO, UACSIND #### [facility] [address] [place] [address] Dr. Narciso Amaral Glucose Ql (U) Negative Normal NEGATIVE The [facility] Comment on above: Performed By: #### U MICRO, UACSIND #### [facility] [address] [place] [address] Dr. Narciso Amaral Hemoglobin Ql (U) LARGE Abnormal NEGATIVE [facility] Comment on above: Performed By: #### U MICRO, UACSIND #### [facility] [address] [place] [address] Dr. Narciso Amaral Ketones Ql (U) Negative Normal NEGATIVE [facility] Comment on above: Performed By: #### U MICRO, UACSIND #### [facility] [address] [place] [address] Dr. Narciso Amaral LEUKOCYTES TRACE Abnormal NEGATIVE [facility] Comment on above: Performed By: #### U MICRO, UACSIND #### [facility] [address] [address] [address] Narciso Amaral Nitrite Ql (U) Negative Normal NEGATIVE [facility] Comment on above: Performed By: #### U MICRO, UACSIND #### [facility] [address] [address] [address] Narciso Amaral pH (U) 6.0 [pH] Normal 5-9 [facility] Comment on above: Performed By: #### U MICRO, UACSIND #### [facility] [address] [place] [address] Dr. Narciso Amaral SPEC GRAVITY <=1.005 Abnormal 1.005-<=1.025 [facility] Comment on above: Performed By: #### U MICRO, UACSIND #### [facility] [address] [place] [address] Dr. Narciso Amaral UA PROTEIN Negative Normal NEGATIVE/ TRACE [facility] Comment on above: Performed By: #### U MICRO, UACSIND #### [facility] [address] [place] [address] Dr. Narciso Amaral UR MICRO IND INDICATED Normal [facility] Comment on above: Performed By: #### U MICRO, UACSIND #### [facility] [address] [place] [address] Dr. Narciso Amaral Urobilinogen Qn (U) 0.2 {Maggy'U}/dL Normal 0.2 - 1. 0 [facility] Comment on above: Performed By: #### U MICRO, UACSIND #### [facility] [address] [place] [address] Dr. Narciso Amaral URINE MICROSCOPIC ONLYon BACTERIA SMALL Abnormal NONE SEEN [facility] Comment on above: Performed By: #### U MICRO, UACSIND #### [facility] [address] [place] [address] Dr. Narciso Amaral Bacteria identified Cx Nom (U) INDICATED Normal [facility] Comment on above: Performed By: #### U MICRO, UACSIND #### [facility] [address] [place] [address] Dr. Narciso Amaral CAST NONE SEEN Normal NONE SEEN [facility] Comment on above: Performed By: #### U MICRO, UACSIND #### [facility] [address] [place] [address] Dr. Narciso Amaral Crystals LM Nom (Urine sed) NONE SEEN Normal NONE SEEN [facility] Comment on above: Performed By: #### U MICRO, UACSIND #### [facility] [address] [place] [address] Dr. Narciso Amaral Epithelial cells LM Ql (Urine sed) FEW Abnormal NONE SEEN /RARE [facility] Comment on above: Performed By: #### U MICRO, UACSIND #### [facility] [address] [place] [address] Dr. Narciso Amaral MUCOUS NONE SEEN Normal NONE SEEN [facility] Comment on above: Performed By: #### U MICRO, UACSIND #### [facility] [address] [place] [address] Dr. Narciso Amaral RBC 5-10 Abnormal 0-2 [facility] Comment on above: Performed By: #### U MICRO, UACSIND #### [facility] [address] [place] [address] Dr. Narciso Amaral WBC 0-2 Abnormal NONE SEEN [facility] Comment on above: Performed By: #### U MICRO, UACSIND #### [facility] [address] [place] [address] Dr. Narciso Amaral CBC AUTO DIFFon 01-09-2022 BASO # 0.0 103/ul Normal 0.0-0.1 [facility] Comment on above: Performed By: #### C BC #### [facility] [address] [place] [address] Dr. Narciso Amaral Basophils/100 WBC (Bld) 0.2 % Normal 0.2-2.0 [facility] Comment on above: Performed By: #### C BC #### [facility] [address] [place] [address] Dr. Narciso Amaral EO # 0.0 103/ul Normal 0.0-0.7 [facility] Comment on above: Performed By: #### C BC #### [facility] [address] [place] [address] Dr. Narciso Amaral Eosinophils/100 WBC (Bld) 0.1 % Critically low 0.9-7.0 [facility] Comment on above: Performed By: #### C BC #### [facility] [address] [place] [address] Dr. Narciso Amaral Erythrocyte distribution width (RBC) [Ratio] 12.8 % Normal 11.0-15.0 [facility] Comment on above: Performed By: #### C BC #### [facility] [address] [place] [address] Dr. Narciso Amaral Hematocrit (Bld) [Volume fraction] 30.8 % Critically low 36.0-48.0 [facility] Comment on above: Performed By: #### C BC #### [facility] [address] [place] [address] Dr. Narciso Amaral Hemoglobin (Bld) [Mass/Vol] 10.0 g/dL Critically low 12.0-16.0 [facility] Comment on above: Performed By: #### C BC #### [facility] [address] [place] [address] Dr. Narciso Amaral IG # 0.02 10e3/ul Normal 0.00-0.03 [facility] Comment on above: Performed By: #### C BC #### [facility] [address] [place] [address] Dr. Narciso Amaral IG % 0.2 % Normal 0.0-0.5 [facility] Comment on above: Performed By: #### C BC #### [facility] [address] [place] [address] Dr. Narciso Amaral LYMPH # 1.4 103/ul Normal 1.2-3.8 [facility] Comment on above: Performed By: #### C BC #### [facility] [address] [place] [address] Dr. Narciso Amaral Lymphocytes/100 WBC (Bld) 14.0 % Critically low 20.5-60.0 [facility] Comment on above: Performed By: #### C BC #### [facility] [address] [place] [address] Dr. Narciso Amaral MANUAL DIFF REQ NO Normal [facility] Comment on above: Performed By: #### C BC #### [facility] [address] [place] [address] Dr. Narciso Amaral MCH (RBC) [Entitic mass] 31.7 pg Normal 26.7-34.0 [facility] Comment on above: Performed By: #### C BC #### [facility] [address] [place] [address] Dr. Narciso Amaral MCHC (RBC) [Mass/Vol] 32.5 g/dL Normal 29.9-35.2 [facility] Comment on above: Performed By: #### C BC #### [facility] [address] [place] [address] Dr. Narciso Amaral MCV (RBC) [Entitic vol] 97.8 fL Normal 81.0-99.0 [facility] Comment on above: Performed By: #### C BC #### [facility] [address] [place] [address] Dr. Narciso Amaral MONO # 0.8 103/ul Normal 0.3-0.8 [facility] Comment on above: Performed By: #### C BC #### [facility] [address] [place] [address] Dr. Narciso Amaral Monocytes/100 WBC (Bld) 8.2 % Normal 1.7-12.0 [facility] Comment on above: Performed By: #### C BC #### [facility] [address] [place] [address] Dr. Narciso Amaral NEUT # 7.9 103/ul Critically high 1.4-6.5 [facility] Comment on above: Performed By: #### C BC #### [facility] [address] [place] [address] Dr. Narciso Amaral Neutrophils/100 WBC (Bld) 77.3 % Critically high 43.0-75.0 [facility] Comment on above: Performed By: #### C BC #### [facility] [address] [place] [address] Dr. Narciso Amaral Platelet mean volume (Bld) [Entitic vol] 9.9 fL Normal 9.5-13.5 [facility] Comment on above: Performed By: #### C BC #### [facility] [address] [place] [address] Dr. Narciso Amaral PLT 143 103/ul Critically low 150-450 [facility] Comment on above: Performed By: #### C BC #### [facility] [address] [place] [address] Dr. Narciso Amaral RBC 3.15 106/ul Critically low 4.20-5.40 [facility] Comment on above: Performed By: #### C BC #### [facility] [address] [place] [address] Dr. Narciso Amaral WBC 10.2 103/ul Normal 4.0-11.0 [facility] Comment on above: Performed By: #### C BC #### [facility] [address] [place] [address] Dr. Narciso Amaral CBC AUTO DIFFon 01-08-2022 BASO # 0.0 103/ul Normal 0.0-0.1 [facility] Comment on above: Performed By: #### C BC #### [facility] [address] [place] [address] Dr. Narciso Amaral Basophils/100 WBC (Bld) 0.3 % Normal 0.2-2.0 [facility] Comment on above: Performed By: #### C BC #### [facility] [address] [place] [address] Dr. Narciso Amaral EO # 0.0 103/ul Normal 0.0-0.7 [facility] Comment on above: Performed By: #### C BC #### [facility] [address] [place] [address] Dr. Narciso Amaral Eosinophils/100 WBC (Bld) 0.4 % Critically low 0.9-7.0 [facility] Comment on above: Performed By: #### C BC #### [facility] [address] [place] [address] Dr. Narciso Amaral Erythrocyte distribution width (RBC) [Ratio] 12.7 % Normal 11.0-15.0 [facility] Comment on above: Performed By: #### C BC #### [facility] [address] [place] [address] Dr. Narciso Amaral Hematocrit (Bld) [Volume fraction] 38.0 % Normal 36.0-48.0 [facility] Comment on above: Performed By: #### C BC #### [facility] [address] [place] [address] Dr. Narciso Amaral Hemoglobin (Bld) [Mass/Vol] 12.5 g/dL Normal 12.0-16.0 [facility] Comment on above: Performed By: #### C BC #### [facility] [address] [place] [address] Dr. Narciso Amaral IG # 0.03 10e3/ul Normal 0.00-0.03 [facility] Comment on above: Performed By: #### C BC #### [facility] [address] [place] [address] Dr. Narciso Amaral IG % 0.4 % Normal 0.0-0.5 [facility] Comment on above: Performed By: #### C BC #### [facility] [address] [place] [address] Dr. Narciso Amaral LYMPH # 1.3 103/ul Normal 1.2-3.8 [facility] Comment on above: Performed By: #### C BC #### [facility] [address] [place] [address] Dr. Narciso Amaral Lymphocytes/100 WBC (Bld) 17.6 % Critically low 20.5-60.0 [facility] Comment on above: Performed By: #### C BC #### [facility] [address] [place] [address] Dr. Narciso Amaral MANUAL DIFF REQ NO Normal [facility] Comment on above: Performed By: #### C BC #### [facility] [address] [place] [address] Dr. Narciso Amaral MCH (RBC) [Entitic mass] 31.6 pg Normal 26.7-34.0 [facility] Comment on above: Performed By: #### C BC #### [facility] [address] [place] [address] Dr. Narciso Amaral MCHC (RBC) [Mass/Vol] 32.9 g/dL Normal 29.9-35.2 [facility] Comment on above: Performed By: #### C BC #### [facility] [address] [place] [address] Dr. Narciso Amaral MCV (RBC) [Entitic vol] 96.0 fL Normal 81.0-99.0 [facility] Comment on above: Performed By: #### C BC #### [facility] [address] [place] [address] Dr. Narciso Amaral MONO # 0.5 103/ul Normal 0.3-0.8 [facility] Comment on above: Performed By: #### C BC #### [facility] [address] [place] [address] Dr. Narciso Amaral Monocytes/100 WBC (Bld) 6.2 % Normal 1.7-12.0 [facility] Comment on above: Performed By: #### C BC #### [facility] [address] [place] [address] Dr. Narciso Amaral NEUT # 5.5 103/ul Normal 1.4-6.5 [facility] Comment on above: Performed By: #### C BC #### [facility] [address] [place] [address] Dr. Narciso Amaral Neutrophils/100 WBC (Bld) 75.1 % Critically high 43.0-75.0 [facility] Comment on above: Performed By: #### C BC #### [facility] [address] [place] [address] Dr. Narciso Amaral Platelet mean volume (Bld) [Entitic vol] 10.3 fL Normal 9.5-13.5 [facility] Comment on above: Performed By: #### C BC #### [facility] [address] [address] [address] Narciso Amaral PLT 159 103/ul Normal 150-450 [facility] Comment on above: Performed By: #### C BC #### [facility] [address] [address] [address] Narciso Amaral RBC 3.96 106/ul Critically low 4.20-5.40 [facility] Comment on above: Performed By: #### C BC #### [facility] [address] [address] [address] Narciso Amaral WBC 7.4 103/ul Normal 4.0-11.0 [facility] Comment on above: Performed By: #### C BC #### [facility] [address] [place] [address] Dr. Narciso Amaral [facility] SARS-CoV-2 (COVID-19) RNA MOHAN+probe Ql (Unsp spec) Not detected Normal NOT DETECTED [facility] Comment on above: Result Comment: When [...] for this test is supported by the Associate Research Scientist of Health and Human Service's declaration that [...] used). Performed By: #### C VDTBH #### [facility] [address] [place] [address] Dr. Narciso Amaral DRUG SCREEN RAPID (URINE)on 01-08-2022 AMP Negative Normal NEGATIVE [facility] Comment on above: Performed By: #### C T/NGNA #### [facility] [address] [place] [address] Dr. Narciso Amaral BAR Negative Normal NEGATIVE [facility] Comment on above: Performed By: #### C T/NGNA #### [facility] [address] [place] [address] Dr. Narciso Amaral BUP Negative Normal NEGATIVE [facility] Comment on above: Performed By: #### C T/NGNA #### [facility] [address] [place] [address] Dr. Narciso Amaral BZO Negative Normal NEGATIVE [facility] Comment on above: Performed By: #### C T/NGNA #### [facility] [address] [place] [address] Dr. Narciso Amaral TREY Negative Normal NEGATIVE [facility] Comment on above: Performed By: #### C T/NGNA #### [facility] [address] [place] [address] Dr. Narciso Amaral CUT-OFFS SEE BELOW Normal [facility] Comment on above: Result Comment: AMP (Amphetamine): 500ng/mL, BAR (Barbituates): 200 ng/mL, BZO (Benzodiazepines): 150 ng/mL, BUP (Buprenorphine): 10 ng/mL, TREY (Cocaine): 150 ng/mL, mAMP (Methamphetamine): 500 ng/mL, MTD (Methadone): 200 ng/mL, OPI (Opiates): 100 ng/mL, OXY (Oxycodone): 100 ng/mL, PCP (Phencyclidine): 25 ng/mL, PPX (Propoxyphene): 300 ng/mL, THC (Cannabinoids): 50 ng/mL, TCA (Trycyclic Antidepressants): 300 ng/mL Performed By: #### C T/NGNA #### [facility] [address] [place] [address] Dr. Narciso Amaral DRUG CUT HEADER DRUG CLASS TEST SYSTEM CUT-OFF CONCENTRATIONS ARE FOLLOWS: Normal [facility] Comment on above: Performed By: #### C T/NGNA #### [facility] [address] [place] [address] Dr. Narciso Amaral mAMP Negative Normal NEGATIVE [facility] Comment on above: Performed By: #### C T/NGNA #### [facility] [address] [place] [address] Dr. Narciso Amaral MTD Negative Normal NEGATIVE [facility] Comment on above: Performed By: #### C T/NGNA #### [facility] [address] [place] [address] Dr. Narciso Amaral OPI Negative Normal NEGATIVE [facility] Comment on above: Performed By: #### C T/NGNA #### [facility] [address] [address] [address] Narciso Amaral OXY Negative Normal NEGATIVE [facility] Comment on above: Performed By: #### C T/NGNA #### [facility] [address] [place] [address] Dr. Narciso Amaral PCP Negative Normal NEGATIVE [facility] Comment on above: Performed By: #### C T/NGNA #### [facility] [address] [place] [address] Dr. Narciso Amaral PPX Negative Normal NEGATIVE [facility] Comment on above: Performed By: #### C T/NGNA #### [facility] [address] [address] [address] Narciso Amaral TCA Negative Normal NEGATIVE [facility] Comment on above: Performed By: #### C T/NGNA #### [facility] [address] [place] [address] Dr. Narciso Amaral THC Negative Normal NEGATIVE [facility] Comment on above: Performed By: #### C T/NGNA #### [facility] [address] [place] [address] Dr. Narciso Amaral TYPE AND SCREENon 01-08-2022 TYPE AND SCREEN Negative Normal [facility] Comment on above: Performed By: #### C T/NGNA #### [facility] [address] [place] [address] Dr. Narciso Amaral US PREG BIOPHY W [...] KRISTINA ESTRADA Date: 2022-01-07 16:20 Normal [facility] US PREG BIOPHY W NON STRESSo [...] KRISTINA ESTRADA Date: 2021-12-31 16:27 Normal [facility] VAGINITIS/VAGINOSIS DNA PROB Julius 12-26-2021 Fany species Negative Normal Negative [facility] Comment on above: Performed By: #### C BC #### [facility] [address] [address] [address] Narciso Amaral Gardnerella vaginalis Negative Normal Negative [facility] Comment on above: Performed By: #### C BC #### [facility] [address] [address] [address] Narciso Amaral Trichomonas vaginalis Negative Normal Negative [facility] Comment on above: Performed By: #### C BC #### [facility] [address] [address] [address] Narciso Amaral US PREG BIOPHY W [...] by: KRISTINA ESTRADA Date: 2021-12-25 09:13 Normal [facility] GROUP B STREP CULTUREon 11-26 S. agalactiae Ag Ql (Unsp spec) Culture Observations: NEGATIVE FOR GROUP B STREPTOCOCCUS. Normal [facility] Comment on above: Performed By: #### C T/HAWA #### [facility] [address] [place] [address] Dr. Narciso Amaral US PREG GROWTHon 12-24-2021 US PREG GROWTH Ultrasound biophysical profile Ultrasound obstetrical, limited CLINICAL: Oligohydramnios follow-up. TECHNIQUE: Transabdominal obstetrical ultrasound was performed. Ultrasound biophysical profile was also performed by deckhand tuna boat. FINDINGS: 09/29/2021. FETUS AND PLACENTA: There is [...] gestational age according to Hadlock criteria. Remarks: Crew Person reports that Dr. Watkins is aware of findings. Electronically authenticated by: AMPARO PATEL Date: 2021-12-24 12:27 [facility] Hematocrit (Bld) [Volume fraction] 35.7 % Low 36 - 46 % [facility] Hemoglobin (Bld) [Mass/Vol] 11.9 g/dL Low 12.0 - 16.0 g/dL [facility] Interpretation and review of laboratory results Abnormal [facility] MCH (RBC) [Entitic mass] 32.8 pg 26 - 34 pg [facility] MCHC (RBC) [Mass/Vol] 33.4 g/dL 31 - 37 g/dL B ON [facility] MCV (RBC) [Entitic vol] 98.1 fL 80 - 100 fL [facility] Platelet distribution width (Bld) [Ratio] 12.1 % 12.1 - 15.2 % [facility] Platelets (Bld) [#/Vol] 178 10*3/uL [facility] RBC (Bld) [#/Vol] 3.64 10*6/uL Low 4.0 - 5.2 m/uL [facility] WBC (Bld) [#/Vol] 7.6 10*3/uL [facility] Glucose tolerance, 1 houron 10-28-2021 GLU ADMN Glucola [facility] Glucose tolerance screen 50g 134 mg/dL 70 - 135 mg/dL [facility] [facility] PREG INCOMPLETE ANATOMYon 09-29-2021 US [...] by: GREG RODNEY Date: 2021-09-29 08:50 Normal [facility] US PREG ANATOMY SINGLEon US PREG ANATOMY [...] by current US: 19 weeks 6 days ELYO by current US: 01/20/2022 IMPRESSION: 1. Single live intrauterine with growth detailed above. 2. Slightly suboptimal visualization of the spine due to movement. No appreciable abnormality. Electronically authenticated by: RKISTINA ESTRADA Date: 2021-09-01 16:26 Normal [facility] AFP MATERNAL FOR SPINA BIFID Aon 08-25-2021 AFP MoM 0.71 Normal [facility] Comment on above: Performed By: #### C BC #### [facility] [address] [address] [address] Narciso Amaral AFP Value 45.2 ng/mL Normal [facility] Comment on above: Performed By: #### C BC #### [facility] [address] [address] [address] Narciso Amaral AFP, Serum for Spina Bifida Report Normal [facility] Comment on above: Performed By: #### C BC #### [facility] [address] [address] [address] Narciso Amaral Comment Comment Normal [facility] Comment on above: Result Comment: Ky Magallon, Ph.D., [facility] Director . References: Available Upon Request. . Multiples Of Median Cutoffs For AFP Elevations Bernstein 2.5 Black 2.8 IDD 2.0 Twins 4.5 Abbreviation Definitions IDD - Insulin Dep Diabetes OSBR - Open Spina Bifida Risk . For further inquiries contact [employer] at [phone]. Performed By: #### C BC #### [facility] [address] [address] [address] Narciso Echevarria Age Collection Date 19.0 weeks Normal [facility] Comment on above: Performed By: #### C BC #### [facility] [address] [address] [address] Narciso Amaral Gestat, Age Based on LMP Normal [facility] Comment on above: Result Comment: Reca lculations are not recommended when gestational dating by LMP and ultrasound are within 10 days. Performed By: #### C BC #### [facility] [address] [address] [address] Narciso Amaral Insulin Dep Diabetes No Normal [facility] Comment on above: Performed By: #### C BC #### [facility] [address] [address] [address] Narciso Amaral Interpretation Comment Normal [facility] Comment on above: Result Comment: Inte rpretation: [...] Customer Services to discuss available options. The [employer] recommends amniocentesis be offered to women age 35 and older. Performed By: #### C BC #### [facility] [address] [address] [address] Narciso Amaral [age] Normal [facility] Comment on above: Performed By: #### C BC #### [facility] [address] [address] [address] Narciso Amaral Multiple Gestation No Normal [facility] Comment on above: Performed By: #### C BC #### [facility] [address] [place] [address] Dr. Narciso Amaral [place] [address] Normal [facility] Comment on above: Performed By: #### C BC #### [facility] [address] [place] [address] Dr. Narciso Amaral PDF . [facility] Comment on above: Performed By: #### C BC #### [facility] [address] [place] [address] Dr. [address] Amar[address] [facility] Comment on above: Performed By: #### C BC #### [facility] [address] [address] [address] Narciso Amaral Test Results: Negative [facility] Comment on above: Performed By: #### C BC #### [facility] [address] [place] [address] Dr. Narciso Amaral PAP ACOG PANEL 2: 21 to 29on 08-23-[address] [facility] Comment on above: Performed By: #### C BC #### [facility] [address] [place] [address] Dr. Narciso Amaral Age Gdln ACOG Testing - [facility] Comment on above: Performed By: #### C BC #### [facility] [address] [place] [address] Dr. Narciso Amaral DIAGNOSIS: Comment [facility] Comment on above: Result Comment: NEGA TIVE FOR INTRAEPITHELIAL LESION OR MALIGNANCY. Performed By: #### C BC #### [facility] [address] [place] [address] Dr. Narciso Amaral Methodology: Comment [facility] Comment on above: Result Comment: This liquid based ThinPrep(R) pap test was screened with the use of an image guided system. Performed By: #### C BC #### [facility] [address] [place] [address] Dr. Narciso Amaral Note: Comment [facility] Comment on above: Result Comment: The Pap smear is a screening test designed to aid in the detection of premalignant and malignant conditions of the uterine cervix. It is not a diagnostic procedure and should not be used as the sole means of detecting cervical cancer. Both false-positive and false-negative reports do occur. . Performed By: #### C BC #### [facility] [address] [place] [address] Dr. Narciso Amaral Performed by: Comment Normal [facility] Comment on above: Result Comment: Nani Power, Senior Tax Manager (ASCP) Performed By: #### C BC #### [facility] [address] [place] [address] Dr. Narciso Amaral Reflex Criteria: Comment Normal [facility] Comment on above: Result Comment: The HPV DNA reflex criteria were not met with this specimen result therefore, no HPV testing was performed. . Performed By: #### C BC #### [facility] [address] [place] [address] Dr. Narciso Amaral Specimen adequacy: Comment Normal [facility] Comment on above: Result Comment: Sati sfactory for evaluation. No endocervical component is identified. Performed By: #### C BC #### [facility] [address] [place] [address] Dr. Narciso Amaral CHLAMYDIA/GONOCOCCUS MOHAN (SW AB/URINE/PAPon 08-21-2021 Chlamydia trachomatis, MOHAN Negative Normal Negative [facility] Comment on above: Performed By: #### C T/NGNA #### [facility] [address] [place] [address] Dr. Narciso Amaral Neisseria gonorrhoeae, MOHAN Negative Normal Negative [facility] Comment on above: Performed By: #### C T/NGNA #### [facility] [address] [place] [address] Dr. Narciso Amaral HEP B SURFACE ANTIGEN SCREEN on 07-04-2021 HBsAg Screen Negative Normal Negative [facility] Comment on above: Performed By: #### N BOX #### [facility] [address] [place] [address] Dr. Narciso Amaral HEPATITIS C VIRUS AB W/ REFL EX QUANTon 07-04-2021 HCV AB <0.1 Normal 0.0-0.9 [facility] Comment on above: Performed By: #### C BC #### [facility] [address] [place] [address] Dr. Narciso Amaral Interpretation: Comment Normal [facility] Comment on above: Result Comment: Nega tive Not infected with HCV, unless recent infection is suspected or other evidence exists to indicate HCV infection. Performed By: #### C BC #### [facility] [address] [place] [address] Dr. Narciso Amaral HIV 1 AND 2 WITH REFLEXon HIV Screen 4th Generation wRfx Non-Reactive Normal Non Reactive [facility] Comment on above: Result Comment: HIV Negative HIV-1/HIV-2 antibodies and HIV-1 p24 antigen were NOT detected. There is no laboratory evidence of HIV infection. Performed By: #### N BOX #### [facility] [address] [place] [address] Dr. Narciso Amaral RPR QUANTon 07-04-2021 Rapid Plasma Reagin, Quant Non-Reactive Normal NonRea<1:1 [facility] Comment on above: Performed By: #### C BC #### [facility] [address] [place] [address] Dr. Narciso Amaral RUBELLA AB IGGon 07-04-2021 Rubella Antibodies, IgG <0.90 Critically low Immune >0.99 [facility] Comment on above: Result Comment: Non- immune <0.90 Equivocal 0.90 - 0.99 Immune >0.99 Performed By: #### R UBIGG #### [facility] [address] [place] [address] Dr. Narciso Amaral CBC AUTO DIFFon 07-03-2021 BASO # 0.0 103/ul Normal 0.0-0.1 [facility] Comment on above: Performed By: #### C BC #### [facility] [address] [place] [address] Dr. Narciso Amaral Basophils/100 WBC (Bld) 0.4 % Normal 0.2-2.0 [facility] Comment on above: Performed By: #### C BC #### [facility] [address] [place] [address] Dr. Narciso Amaral EO # 0.0 103/ul Normal 0.0-0.7 [facility] Comment on above: Performed By: #### C BC #### [facility] [address] [place] [address] Dr. Narciso Amaral Eosinophils/100 WBC (Bld) 0.4 % Critically low 0.9-7.0 [facility] Comment on above: Performed By: #### C BC #### [facility] [address] [place] [address] Dr. Narciso Amaral Erythrocyte distribution width (RBC) [Ratio] 11.9 % Normal 11.0-15.0 [facility] Comment on above: Performed By: #### C BC #### [facility] [address] [place] [address] Dr. Narciso Amaral Hematocrit (Bld) [Volume fraction] 33.0 % Critically low 36.0-48.0 [facility] Comment on above: Performed By: #### C BC #### [facility] [address] [place] [address] Dr. Narciso Amaral Hemoglobin (Bld) [Mass/Vol] 11.3 g/dL Critically low 12.0-16.0 [facility] Comment on above: Performed By: #### C BC #### [facility] [address] [place] [address] Dr. Narciso Amaral IG # 0.01 10e3/ul Normal 0.00-0.03 [facility] Comment on above: Performed By: #### C BC #### [facility] [address] [place] [address] Dr. Narciso Amaral IG % 0.2 % Normal 0.0-0.5 [facility] Comment on above: Performed By: #### C BC #### [facility] [address] [place] [address] Dr. Narciso Amaral LYMPH # 1.9 103/ul Normal 1.2-3.8 [facility] Comment on above: Performed By: #### C BC #### [facility] [address] [place] [address] Dr. Narciso Amaral Lymphocytes/100 WBC (Bld) 35.9 % Normal 20.5-60.0 [facility] Comment on above: Performed By: #### C BC #### [facility] [address] [place] [address] Dr. Narciso Amaral MANUAL DIFF REQ NO Normal [facility] Comment on above: Performed By: #### C BC #### [facility] [address] [place] [address] Dr. Narciso Amaral MCH (RBC) [Entitic mass] 31.6 pg Normal 26.7-34.0 [facility] Comment on above: Performed By: #### C BC #### [facility] [address] [place] [address] Dr. Narciso Amaral MCHC (RBC) [Mass/Vol] 34.2 g/dL Normal 29.9-35.2 [facility] Comment on above: Performed By: #### C BC #### [facility] [address] [place] [address] Dr. Narciso Amaral MCV (RBC) [Entitic vol] 92.2 fL Normal 81.0-99.0 [facility] Comment on above: Performed By: #### C BC #### [facility] [address] [place] [address] Dr. Narcsio Amaral MONO # 0.2 103/ul Critically low 0.3-0.8 [facility] Comment on above: Performed By: #### C BC #### [facility] [address] [place] [address] Dr. Narciso Amaral Monocytes/100 WBC (Bld) 4.2 % Normal 1.7-12.0 [facility] Comment on above: Performed By: #### C BC #### [facility] [address] [place] [address] Dr. Narciso Amaral NEUT # 3.1 103/ul Normal 1.4-6.5 [facility] Comment on above: Performed By: #### C BC #### [facility] [address] [place] [address] Dr. Narciso Amaral Neutrophils/100 WBC (Bld) 58.9 % Normal 43.0-75.0 [facility] Comment on above: Performed By: #### C BC #### [facility] [address] [address] [address] Narciso Amaral Platelet mean volume (Bld) [Entitic vol] 10.4 fL Normal 9.5-13.5 [facility] Comment on above: Performed By: #### C BC #### [facility] [address] [address] [address] Narciso Amaral PLT 158 103/ul Normal 150-450 [facility] Comment on above: Performed By: #### C BC #### [facility] [address] [address] [address] Narciso Amaral RBC 3.58 106/ul Critically low 4.20-5.40 [facility] Comment on above: Performed By: #### C BC #### [facility] [address] [place] [address] Dr. Narciso Amaral WBC 5.2 103/ul Normal 4.0-11.0 [facility] Comment on above: Performed By: #### C BC #### [facility] [address] [address] [address] Narciso Amaral CULTURE URINEon 07-03-2021 CULTURE URINE Culture Observations: No growth Normal [facility] Comment on above: Performed By: #### U RCX #### [facility] [address] [place] [address] Dr. Narciso Amaral GLYCOHEMOGLOBIN A1Con 2021 ADA RECOMMENDATION ADA THERAPEUTIC TARGET 6.0 - 7.0 ACTION SUGGESTED > 7.0 Normal [facility] Comment on above: Performed By: #### N BOX #### [facility] [address] [place] [address] Dr. Narciso Amaral Glucose [Mass/Vol] 88 mg/dL Normal [facility] Comment on above: Performed By: #### N BOX #### [facility] [address] [address] [address] Narciso Amaral HbA1c (Bld) [Mass fraction] 4.7 % Normal <=6.0 [facility] Comment on above: Performed By: #### N BOX #### [facility] [address] [place] [address] Dr. Narciso ARIAS TEST PT SEND OUTo n 07-03-2021 SENT TO REF LAB 07/03/2021 Normal [facility] Comment on above: Performed By: #### N BOX #### [facility] [address] [place] [address] Dr. Narciso Amaral TYPE AND SCREENon 07-03-2021 TYPE AND SCREEN Negative Normal [facility] Comment on above: Performed By: #### C T/NGNA #### [facility] [address] [place] [address] Dr. Narciso Amaral CBC AUTO DIFFon 06-17-2021 BASO # 0.0 103/ul Normal 0.0-0.1 [facility] Comment on above: Performed By: #### N BOX #### [facility] [address] [place] [address] Dr. Narciso Amaral Basophils/100 WBC (Bld) 0.4 % Normal 0.2-2.0 [facility] Comment on above: Performed By: #### N BOX #### [facility] [address] [place] [address] Dr. Narciso Amaral EO # 0.0 103/ul Normal 0.0-0.7 [facility] Comment on above: Performed By: #### N BOX #### [facility] [address] [place] [address] Dr. Narciso Amaral Eosinophils/100 WBC (Bld) 0.0 % Critically low 0.9-7.0 [facility] Comment on above: Performed By: #### N BOX #### [facility] [address] [place] [address] Dr. Narciso Amaral Erythrocyte distribution width (RBC) [Ratio] 11.6 % Normal 11.0-15.0 [facility] Comment on above: Performed By: #### N BOX #### [facility] [address] [place] [address] Dr. Narciso Amaral Hematocrit (Bld) [Volume fraction] 42.6 % Normal 36.0-48.0 [facility] Comment on above: Performed By: #### N BOX #### [facility] [address] [address] [address] Narciso Amaral Hemoglobin (Bld) [Mass/Vol] 14.9 g/dL Normal 12.0-16.0 [facility] Comment on above: Performed By: #### N BOX #### [facility] [address] [address] [address] Narciso Amaral IG # 0.02 10e3/ul Normal 0.00-0.03 [facility] Comment on above: Performed By: #### N BOX #### [facility] [address] [place] [address] Dr. Narciso Amaral IG % 0.3 % Normal 0.0-0.5 [facility] Comment on above: Performed By: #### N BOX #### [facility] [address] [place] [address] Dr. Narciso Amaral LYMPH # 2.1 103/ul Normal 1.2-3.8 [facility] Comment on above: Performed By: #### N BOX #### [facility] [address] [place] [address] Dr. Narciso Amaral Lymphocytes/100 WBC (Bld) 28.8 % Normal 20.5-60.0 [facility] Comment on above: Performed By: #### N BOX #### [facility] [address] [place] [address] Dr. Narciso Amaral MANUAL DIFF REQ NO Normal [facility] Comment on above: Performed By: #### N BOX #### [facility] [address] [place] [address] Dr. Narciso Amaral MCH (RBC) [Entitic mass] 31.6 pg Normal 26.7-34.0 [facility] Comment on above: Performed By: #### N BOX #### [facility] [address] [place] [address] Dr. Narciso Amaral MCHC (RBC) [Mass/Vol] 35.0 g/dL Normal 29.9-35.2 [facility] Comment on above: Performed By: #### N BOX #### [facility] [address] [place], [place] [id number] Dr. Narciso Amaral MCV (RBC) [Entitic vol] 90.4 fL Normal 81.0-99.0 [facility] Comment on above: Performed By: #### N BOX #### [facility] [address] [place] [address] Dr. Narciso Amaral MONO # 0.3 103/ul Normal 0.3-0.8 [facility] Comment on above: Performed By: #### N BOX #### [facility] [address] [place] [address] Dr. Narciso Amaral Monocytes/100 WBC (Bld) 4.6 % Normal 1.7-12.0 [facility] Comment on above: Performed By: #### N BOX #### [facility] [address] [place] [address] Dr. Narciso Amaral NEUT # 4.7 103/ul Normal 1.4-6.5 [facility] Comment on above: Performed By: #### N BOX #### [facility] [address] [place] [address] Dr. Narciso Amaral Neutrophils/100 WBC (Bld) 65.9 % Normal 43.0-75.0 [facility] Comment on above: Performed By: #### N BOX #### [facility] [address] [place] [address] Dr. Narciso Amaral Platelet mean volume (Bld) [Entitic vol] 9.7 fL Normal 9.5-13.5 [facility] Comment on above: Performed By: #### N BOX #### [facility] [address] [place] [address] Dr. Narciso Amaral PLT 199 103/ul Normal 150-450 [facility] Comment on above: Performed By: #### N BOX #### [facility] [address] [place] [address] Dr. Narciso Amaral RBC 4.71 106/ul Normal 4.20-5.40 [facility] Comment on above: Performed By: #### N BOX #### [facility] [address] [place] [address] Dr. Narciso Amaral WBC 7.1 103/ul Normal 4.0-11.0 [facility] Comment on above: Performed By: #### N BOX #### [facility] [address] [place] [address] Dr. Narciso WILL URINE PROFILEon 2 Bilirubin Ql (U) Negative Normal NEGATIVE [facility] Comment on above: Performed By: #### E RUR #### [facility] [address] [place] [address] Dr. Narciso Amaral Clarity (U) SL CLOUDY Abnormal CLEAR [facility] Comment on above: Performed By: #### E RUR #### [facility] [address] [place] [address] Dr. Narciso Amaral Color (U) YELLOW Normal YELLOW [facility] Comment on above: Performed By: #### E RUR #### [facility] [address] [place] [address] Dr. Narciso HARTMANNAHHerberth A micrscopic examination will be performed if indicated. Normal [facility] Comment on above: Performed By: #### E RUR #### [facility] [address] [place] [address] Dr. Narciso Amaral Glucose Ql (U) Negative Normal NEGATIVE [facility] Comment on above: Performed By: #### E RUR #### [facility] [address] [place] [address] Dr. Narciso Amaral Hemoglobin Ql (U) Negative Normal NEGATIVE [facility] Comment on above: Performed By: #### E RUR #### [facility] [address] [place] [address] Dr. Narciso Amaral Ketones Ql (U) >=80 Abnormal NEGATIVE [facility] Comment on above: Performed By: #### E RUR #### [facility] [address] [place] [address] Dr. Narciso Amaral LEUKOCYTES Negative Normal NEGATIVE [facility] Comment on above: Performed By: #### E RUR #### [facility] [address] [place] [address] Dr. Narciso Amaral Nitrite Ql (U) Negative Normal NEGATIVE [facility] Comment on above: Performed By: #### E RUR #### [facility] [address] [place] [address] Dr. Narciso Amaral pH (U) 6.0 [pH] Normal 5-9 [facility] Comment on above: Performed By: #### E RUR #### [facility] [address] [place] [address] Dr. Narciso Amaral SPEC GRAVITY >=1.030 Abnormal 1.005-<=1.025 [facility] Comment on above: Performed By: #### E RUR #### [facility] [address] [place] [address] Dr. Narciso Amaral UA PROTEIN TRACE Normal NEGATIVE/ TRACE [facility] Comment on above: Performed By: #### E RUR #### [facility] [address] [place] [address] Dr. Narciso Amaral UR MICRO IND NOT INDICATED Normal [facility] Comment on above: Performed By: #### E RUR #### [facility] [address] [place] [address] Dr. Narciso Amaral Urobilinogen Qn (U) 1.0 {Maggy'U}/dL Normal 0.2 - 1. 0 [facility] Comment on above: Performed By: #### E RUR #### [facility] [address] [place] [address] Dr. Narciso Amaral PROF 14(COMP METB)on 022 Albumin [Mass/Vol] 4.6 g/dL Normal 3.5-5.0 [facility] Comment on above: Performed By: #### C BC #### [facility] [address] [place] [address] Dr. Narciso Amaral Albumin/Globulin [Mass ratio] 1.0 {ratio} Normal [facility] Comment on above: Performed By: #### C BC #### [facility] [address] [place] [address] Dr. Narciso Amaral ALP [Catalytic activity/Vol] 54 U/L Normal 38-126 [facility] Comment on above: Performed By: #### C BC #### [facility] [address] [address] [address] Narciso Amaral ALT [Catalytic activity/Vol] 12 U/L Normal 9-52 [facility] Comment on above: Performed By: #### C BC #### [facility] [address] [address] [address] Narciso Amaral Anion gap [Moles/Vol] 14.8 mmol/L Normal [facility] Comment on above: Performed By: #### C BC #### [facility] [address] [address] [address] Narciso Amaral AST [Catalytic activity/Vol] 11 U/L Critically low 14-36 [facility] Comment on above: Performed By: #### C BC #### [facility] [address] [place] [address] Dr. Narciso Amaral Bilirubin [Mass/Vol] 0.9 mg/dL Normal 0.2-1.3 [facility] Comment on above: Performed By: #### C BC #### [facility] [address] [place] [address] Dr. Narciso Amaral Calcium [Mass/Vol] 9.6 mg/dL Normal 8.4-10.2 [facility] Comment on above: Performed By: #### C BC #### [facility] [address] [place] [address] Dr. Narciso Amaral Chloride [Moles/Vol] 98 mmol/L Normal 98-107 [facility] Comment on above: Performed By: #### C BC #### [facility] [address] [address] [address] Narciso Amaral CO2 [Moles/Vol] 27.3 mmol/L Normal 22.0-30.0 [facility] Comment on above: Performed By: #### C BC #### [facility] [address] [place] [address] Dr. Narciso Amaral Creatinine [Mass/Vol] 0.55 mg/dL Normal 0.52-1.04 [facility] Comment on above: Performed By: #### C BC #### [facility] [address] [address] [address] Narciso Amaral EGFR-AF ENGLISH >60 Normal >=60 [facility] Comment on above: Performed By: #### C BC #### [facility] [address] [address] [address] Narciso Amaral EGFR-NON AF ENGLISH >60 Normal >=60 [facility] Comment on above: Performed By: #### C BC #### [facility] [address] [address] [address] Narciso Amaral Globulin (S) [Mass/Vol] 4.7 g/dL Normal [facility] Comment on above: Performed By: #### C BC #### [facility] [address] [address] [address] Narciso Amaral Glucose [Mass/Vol] 87 mg/dL Normal 74-106 [facility] Comment on above: Performed By: #### C BC #### [facility] [address] [place] [address] Dr. Narciso Amaral Potassium [Moles/Vol] 3.1 mmol/L Critically low 3.4-5.0 [facility] Comment on above: Performed By: #### C BC #### [facility] [address] [place] [address] Dr. Narciso Amaral Protein [Mass/Vol] 9.3 g/dL Critically high 6.1-8.2 [facility] Comment on above: Performed By: #### C BC #### [facility] [address] [address] [address] Narciso Amaral Sodium [Moles/Vol] 137 mmol/L Normal 137-145 [facility] Comment on above: Performed By: #### C BC #### [facility] [address] [place] [address] Dr. Narciso Amaral Urea nitrogen [Mass/Vol] 11.0 mg/dL Normal 7.0-17.0 [facility] Comment on above: Performed By: #### C BC #### [facility] [address] [address] [address] Narciso Amaral Urea nitrogen/Creatinine [Mass ratio] 20.0 mg/mg Normal [facility] Comment on above: Performed By: #### C BC #### [facility] [address] [place] [address] Dr. Narciso Amaral US PREG TVon 06-17-2021 [...] by: KRISTINA ESTRADA Date: 2021-06-17 17:29 Normal [facility] Vital Signs Date Time Vital Sign Value Performing Clinician Facility 05-31-2023 08:51-0500 Body mass index (BMI) [Ratio] 22.85 kg/m2 Lydia DOLAN Work Phone: [facility] 05-31-2023 08:51-0500 Body weight 60.38 kg Lydia DOLAN Work Phone: [facility] 05-31-2023 08:51-0500 Diastolic blood pressure 66 mm[Hg] Lydia DOLAN Work Phone: [facility] 05-31-2023 08:51-0500 Systolic blood pressure 102 mm[Hg] Lydia DOLAN Work Phone: [facility] 01-03-2023 20:48-0400 Diastolic blood pressure 66 mm[Hg] Kemal Sharma [facility] 01-03-2023 20:48-0400 Heart rate 68 /min Kemal Sharma [facility] 01-03-2023 20:48-0400 Respiratory rate 18 /min Kemal Sharma [facility] 01-03-2023 20:48-0400 SaO2% (BldA) [Mass fraction] 99 % Kemal Zachary [facility] 01-03-2023 20:48-0400 Systolic blood pressure 110 mm[Hg] Kemal Zachary [facility] 01-03-2023 19:55-0400 Hourly Rounding Kemal Zachary [facility] 01-03-2023 19:53-0400 Diastolic blood pressure 71 mm[Hg] Kemal Zachary [facility] 01-03-2023 19:53-0400 Heart rate 70 /min Kemal Zachary [facility] 01-03-2023 19:53-0400 Respiratory rate 18 /min Kemal Zachary [facility] 01-03-2023 19:53-0400 SaO2% (BldA) [Mass fraction] 99 % Kemal Zachary [facility] 01-03-2023 19:53-0400 Systolic blood pressure 106 mm[Hg] Kemal Zachary [facility] 01-03-2023 18:55-0400 Diastolic blood pressure 74 mm[Hg] Kemal Zachary [facility] 01-03-2023 18:55-0400 Heart rate 74 /min Kemal Zachary [facility] 01-03-2023 18:55-0400 Hourly Rounding Kemal Zachary [facility] 01-03-2023 18:55-0400 Respiratory rate 16 /min Kemal Zachary [facility] 01-03-2023 18:55-0400 SaO2% (BldA) [Mass fraction] 99 % Kemal Zachary [facility] 01-03-2023 18:55-0400 Systolic blood pressure 108 mm[Hg] Kemal Sharma [facility] 01-03-2023 17:55-0400 Hourly Rounding Kemal Sharma [facility] 01-03-2023 17:55-0400 Promise to Return Kemal Sharma [facility] 01-03-2023 16:55-0400 Body temperature 98.06 [degF] Kemal Sharma [facility] 08-25-2021 20:06-0400 Body weight 51.[address] TONI WATKINS [facility] Comment on above: Performed By: #### CBC #### [facility] [address] [place] [address] Dr. Narciso Amaral Encounters Encounter Date Encounter Type Care Provider Facility Start: 06-17-2023 End: 06-17-2023 ambulatory TONI TRES Not Available Start: 05-31-2023 End: 05-31-2023 ambulatory LYDIA GALLO Not Available Start: 05-31-2023 End: 05-31-2023 flow sheet Lydia Gallo PA Work Phone: [facility] Comment on above: Third trimester preg jordana Start: 05-06-2023 End: 05-06-2023 ambulatory TONI TRES Not Available Start: 04-28-2023 End: 04-29-2023 [facility] Start: 04-28-2023 End: 04-28-2023 Subsequent hospital visit by physician [facility] Start: 04-12-2023 End: 04-12-2023 ambulatory LYDIA GALLO Not Available Start: 03-08-2023 End: 03-08-2023 ambulatory TONI TRES Not Available Start: 01-03-2023 End: 01-03-2023 Emergency department patient visit Kemal Sharma Facility:[facility] Start: 01-03-2023 End: 01-03-2023 Emergency department patient visit Kemal GalindoFadumo Zachary [facility] Start: 01-21-[address] TONI WATKINS [...] Start: 12-24-2021 End: 12-25-[address] TONI WATKISN Facility:[facility] Start: 12-24-2021 End: 12-25-[address] [...] te st gtt 3 specimens Lydia L Morgan PA-C Work Phone: Start: 01-08-2022 Delivery of [...] [facility] [address] [place] [id number] Toni Watkins, [address] [place] [address] [facility] Start: 05-31-2023 End: 05-31-2023 Patient encounter procedure 05/31/2023 12:30 PM EST Routine [facility] [address] [place] [id number] [facility] Start: 05-04-2023 End: 05-04-2023 Patient encounter procedure 05/04/2023 1:30 PM EST Routine [facility] [address] [place] [address] [facility] Start: 11-24-2022 Influenza vaccination Flu vaccine (# 1) [facility] Start: 12-25-2021 Influenza vaccination Flu vaccine (# 1) [facility] Start: 2017 Screening for malign ant neoplasm of cervix Pap smear [facility] Start: 04-07-2016 DTaP/Tdap/Td vaccine (1 - Tdap) DTaP/Tdap/Td vaccine (1 - Tdap) [facility] Start: 2014 Hepatitis C screening Hepatitis C sc reen [facility] Start: 08-01-2011 HIV screening HIV screen [facility] Start: 2008 Depression Screen Depression Screen [facility] Start: 08-01-2007 HPV vaccine (1 - 2-d ose series) HPV vaccine (1 - 2-dose series) [facility] Start: 2001 COVID-19 Vaccine (1) COVID-19 Vaccin e (1) [facility] Start: 1997 Varicella vaccine (1 of 2 - 2-dose childhood series) Varicella vaccine (1 of 2 - 2-dose childhood series) [facility] Start: 01-30-1997 COVID-19 Vaccine (#1) COVID-19 Vacci ne (#1) [facility] Start: 1996 Hepatitis B vaccine (1 of 3 - 3-dose series) Hepatitis B vaccine (1 of 3 - 3-dose series) [facility] Payers Date Payer Category Payer Unknown 1996 Unknown [id number] 2.16.84 [id number] 1996 Unknown [id number] 2.16.84 0.1.074490.3.579.2.593 1996 Unknown [id number] 2.16.84 0.1.740971.3.579.2.593 1996 Unknown [id number] 2.16.84 0.1.154114.3.579.2.593 1996 Unknown [id number] 2.16.84 0.1.576217.3.579.2.593 1996 Unknown [id number] 2.16.84 0.1.769425.3.579.2.593 1996 Unknown [id number] 2.16.84 0.1.841294.3.579.2.593 1996 Unknown [id number] 2.16.84 0.1.236588.3.579.2.593 1996 Unknown [id number] 2.16.84 0.1.702391.3.579.2.593 1996 Unknown [id number] 2.16.84 0.1.287560.3.579.2.593 1996 Unknown [id number] 2.16.84 0.1.967716.3.579.2.593 1996 Unknown [id number] 2.16.84 0.1.515909.3.579.2.593 1996 Unknown [id number] 2.16.84 0.1.898149.3.579.2.593 1996 Unknown [id number] 2.16.84 0.1.558303.3.579.2.593 1996 Unknown [id number] 2.16.84 0.1.611555.3.579.2.593 1996 Unknown [id number] 2.16.84 0.1.968202.3.579.2.593 1996 Unknown [id number] 2.16.84 0.1.412178.3.579.2.593 1996 Unknown [id number] 2.16.8 40.1.986381.3.579.2.727 1996 Unknown [id number] 2.16.8 40.1.344747.3.579.2.174 1996 Unknown [id number] 2.16.84 0.1.147215.3.579.2.1259 1996 Unknown [id number] 2.16.84 0.1.027956.3.579.2.1259 1996 Unknown [id number] 2.16.84 0.1.380612.3.579.2.1259 1996 Unknown [id number] 2.16.840 .1.002396.3.579.2.1259 1996 Unknown [id number] 2.16.840. 1.510390.3.579.2.1259 1959 Self-pay [id number] Self-pay 1959 Unknown [id number] [id number] Unknown [id number] 2.16.84 0.1.886126.3.579.2.593 Social History Date Type Detail Facility Tobacco smoking status [facility] Tobacco smoking consumption unknown [facility] Work Phone: Start: 1995 Sex Assigned At Not on file [facility] Work Phone: Start: 04-05-2021 End: 04-07-2023 Tobacco smoking status Never smoked tobacco (finding) [facility] Tobacco smoking status Never [facility] Start: 04-20-2023 Sex Assigned At Female [facility] Start: 04-07-2023 Tobacco use and exposure Smokeless tobacco non-user [facility] Start: 04-20-2023 Alcohol intake Lifetime non-d jay (finding) [facility] Start: 04-20-2023 History of Social function [facility] Start: 11-12-2022 [employer] NEGATED: Highlighted rowStart: NINF History of tobacco use Passive smoker [facility] Functional Status Date Assessment Result Facility 01-03-2023 Functional Status N/A [facility] History of Present illness Narrative 05-31-2023 [...] and states received a steroid while in [place] for shortened cervix. Pt to have nst [...] of: MAGDALENO Garsia documented in this encounter [facility] Discharge instructions 01-03-2023 Note Date & Type Note Facility 01-03-2023 Hospital Discharg e instructions Patient Education 01/03/2023 20:50:05 Morning Sickness, Savz-cw-Ijwk Morning Sickness Morning sickness is when you [...] Follow these instructions at home: Medicines Take gptf-zat-yhodejn and prescription medicines only as told by [...] carmen, carmen tea made from fresh grated cramen, or carmen candies. General instructions Do not [...] provider. Document Revised: 11/25/2020 Document Reviewed: 11/04/2020 [employer] Patient Education 2022 [employer]. Follow Up Care 01/03/2023 16:18:17 With:Toni WATKINS Address: [address] , [place] [address] Business (1) When:01/06/2023 20:40:46 [facility] Evaluation + Plan note 01-03-2023 Note [...] discharged home with instructions to follow with [employer] and is to return to the ED with any new or worsening symptoms. Patient voices understanding is agreeable to plan [facility] Evaluation note Note Date & Type Note Facility Evaluation note Diagnosis Third trimester state, incidental documented in this encounter [facility] Hospital course Narrative Note Date & Type Note Facility Hospital course Narrative No data available for this section [facility] Progress note Note Date & Type Note Facility Progress note No data available for this section [facility] Summary Purpose Family History No Family History Records FoundNo Family History Records FoundNo Family History Records FoundNo Family History Records Found Advance Directives No Advanced Directives Records FoundNo Advanced Directives Records FoundNo Advanced Directives Records FoundNo Advanced Directives Records Found Additional Source Comments INFORMATION SOURCE (unrecogn ized section and content) DATE CREATED AUTHOR 01/21/2022 [facility] DATE CREATED AUTHOR AUTHOR'S ORGANIZ ATION 01/07/2023 [facility] DATE CREATED AUTHOR AUTHOR'S ORGANIZ ATION 04/29/2023 Nancy Hayden [facility] DATE CREATED AUTHOR AUTHOR'S ORGANIZ ATION 06/25/2023 [facility] Patient Care team informatio n (unrecognized section and content) Personnel Name: Gloria CASTELLANOS CNP Address: Address: [address] [place] [address] Dr. Blake, [facility] Reason for Visit (unrecogniz ed [...] ON THE PRIMARY CLINICAL RECORDS. [facility]. provides no warranty or guarantee of the accuracy or completeness of information in this document.
--- NOTE | 2023-07-05 09:47 | US_ITS ---
[address] [address] Patient Name: DOMINIK FRANCO MRN: [id number] date: 1995 Sex: F Assigned Patient Location: [facility] Current Patient Location: Accession/Order Number: [id number] Exam Date: 07/05/2023 09:50 Report Date: 07/05/2023 11:47 At the request of: TONI JOSHUA Procedure: US OB growth EXAMINATION: US OB growth HISTORY: ANTEPARTUM PLACANTA CIRCUMBALLATA O43.119 COMPARISON: 05/07/2023 FINDINGS: Heart Rate: 137.1 bpm Amniotic Fluid Volume: 10.3 cm Number: 1.0 Position: Cephalic presentation, longitudinal lie Maximum Vertical Pocket: 6.1 cm cm 1.6 cm cm 1.8 cm cm 0.8 cm cm BIOMETRY: BPD: 8.8 cm cm; 35 weeks 4 days; 54% HC: 32.5 cmcm; 36 weeks 6 days , 49% AC: 31.1 cm cm; 35 weeks 1 days, 44% FL: 6.4 cm cm; 33 weeks 1 days; < 3.0 % % EFW: 2511.0 grams 5 lbs. 9 oz., 27% FL/AC: 20.6 FL/BPD: 72.9 HC/AC: 1.0 GESTATIONAL AGE: Age by EDC: 35 weeks 4 days ELOY by EDC: 08/05/2023 Age by US: 35 weeks 1 day ELOY by US: 08/08/2023 US/US OB growth IMPRESSION: Femur length less than the 3rd percentile, otherwise normal interval growth Electronically authenticated by: GREG RODNEY Date: 07/05/2023 11:47
[2023-07-05 09:48] VITALS: BP 105/69; PULSE 86
--- OUTSIDE RECORDS SUMMARY | 2023-07-08 07:05 | XMS_ITS | CCD ---
Author Name Unknown Address [address] [place] [address] Organization [facility] Care Team Providers Care Miter Saw Operator Name Role Phone Unavailable Primary Care [...] Admitting Unavailable Gloria CASTELLANOS Primary Care Physician [phone] Kemal Sharma Attending Unavailable Unavailable Primary Care Provider UnavailLYDIA Liao Referring Unavailable Unavailable Primary Care Provider Unavailjarett e TONI WATKINS Attending Unavailable CLEOLYDIA CANDELARIO Attending Unavailable TRES, TONI Attending Unavailable CLEO, LYDIA Attending Unavailable TRES, TONI Attending Unavailable CLEO, LYDIA Attending Unavailable Allergies Allergy Classification Reported Allergen(s) Allergy Type Date of Onset Reaction(s) Facility (2 sources) Amoxicillin; Translations: [amoxicillin] Drug Allergy 2 [facility] Repository (3 sources) Amoxicillin; Translations: [amoxicillin] Drug Allergy 3 rash [facility] [place] (1 source) Penicillins Propensity to adverse reactions to drug 3 Rash [facility] (2 sources) Penicillins Drug Allergy 3 [...] hours., # 16 tab(s), Refills(s) 1, [id number], 168, cm, 04/09/20 15:23:00 EST, Height/Length Dosing, 50.7, kg, 04/09/20 15:23:00 EST, Weight Dosing Start Date: 04/09/20 Status: Ordered Zofran ODT 4 mg Tab-Dis (1 source) Start: 06-09-2021 take 1 tablet by mouth every six hours as needed for nausea Zofran ODT 4 mg Tab-Dis 4 mg = 1 tab(s), Oral, q6hr, PRN Nausea/Vomiting, # 12 tab(s), Refills(s) 0, Pharmacy: [facility], 165.1, cm, 06/09/21 2:43:00 EST, [...] applicable or unspecified; Translations: [MAT CARE OTH NH FTL GRTH 3RD TM UNS] Onset: 12-31-2021 [...] Differentialon 04-28-2023 Basophils (Bld) [#/Vol] 0.03 10*3/uL [facility] Basophils/100 WBC (Bld) 1 % 0 - 2 % [facility] Eosinophils (Bld) [#/Vol] 0.04 10*3/uL [facility] Eosinophils/100 WBC (Bld) 1 % 0 - 5 % [facility] Erythrocyte distribution width (RBC) [Ratio] 11.8 % Low 12.1 - 15.2 % [facility] Hematocrit (Bld) [Volume fraction] 35.4 % Low 36.0 - 46.0 % [facility] Hemoglobin (Bld) [Mass/Vol] 11.9 g/dL Low 12.0 - 16.0 g/dL [facility] Immature granulocytes (Bld) [#/Vol] 0.04 10*3/uL [facility] Immature granulocytes/100 WBC (Bld) 1 % 0 - 5 % [facility] Interpretation and review of laboratory results Abnormal [facility] Lymphocytes/100 WBC (Bld) 24 % 15 - 40 % [facility] Lymphocytes/100 WBC (Bld) 1.53 % [facility] MCH (RBC) [Entitic mass] 32.9 pg 26.0 - 34.0 pg [facility] MCHC (RBC) [Mass/Vol] 33.6 g/dL 31.0 - 37.0 g/dL [facility] MCV (RBC) [Entitic vol] 97.8 fL 80.0 - 100.0 fL [facility] Monocytes/100 WBC (Bld) 6 % 4 - 8 % [facility] Monocytes/100 WBC (Bld) 0.41 % [facility] Neutrophils/100 WBC (Bld) 67 % 47 - 75 % [facility] Platelet mean volume (Bld) [Entitic vol] 9.5 fL 6.0 - 12.0 fL [facility] Platelets (Bld) [#/Vol] 155 10*3/uL [facility] RBC (Bld) [#/Vol] 3.62 10*6/uL Low 4.00 - 5.2 0 m/uL [facility] Segmented neutrophils/100 WBC (Bld) 4.37 % [facility] WBC other (Bld) [#/Vol] 6.4 [facility] CBC with Diffon 04-28-2023 Abs. Basophil 0.03 k/uL Normal 0.00-0.20 [facility] Comment on above: Performed By: #### C DP, GLUSC #### [facility] [address] [place] [address] Scrap Dealer: Greg Castillo MD Abs.Imm.Granulocyte 0.04 k/uL Normal 0.00-0.30 [facility] Comment on above: Performed By: #### C DP, GLUSC #### [facility] [address] [place] [address] Scrap Dealer: Greg Castillo MD Abs.Neutrophil (Seg) 4.37 k/uL Normal 2.5-7.0 [facility] Comment on above: Performed By: #### C DP, GLUSC #### [facility] [address] [place] [address] Scrap Dealer: Greg Castillo MD Basophils/100 WBC (Bld) 1 % Normal 0-2 [facility] Comment on above: Performed By: #### C DP, GLUSC #### [facility] [address] [place] [id number] Scrap Dealer: Greg Castillo MD Eosinophils (Bld) [#/Vol] 0.04 10*3/uL Normal 0.00-0.40 [facility] Comment on above: Performed By: #### C DP, GLUSC #### [facility] [address] [place], [place] [id number] Scrap Dealer: Greg Castillo MD Eosinophils/100 WBC (Bld) 1 % Normal 0-5 [facility] Comment on above: Performed By: #### C DP, GLUSC #### [facility] [address] [place] [id number] Scrap Dealer: Greg Castillo MD Erythrocyte distribution width (RBC) [Ratio] 11.8 % Low 12.1-15.2 [facility] Comment on above: Performed By: #### C DP, GLUSC #### [facility] [address] [place] [id number] Scrap Dealer: Greg Castillo MD Hematocrit (Bld) [Volume fraction] 35.4 % Low 36.0-46.0 [facility] Comment on above: Performed By: #### C DP GLUSC #### [facility] [address] [place] [id number] Scrap Dealer: Greg Castillo MD Hemoglobin (Bld) [Mass/Vol] 11.9 g/dL Low 12.0-16.0 [facility] Comment on above: Performed By: #### C DP, GLUSC #### [facility] [address] [place] [id number] Scrap Dealer: Greg Castillo MD Immature granulocytes/100 WBC (Bld) 1 % Normal 0-5 [facility] Comment on above: Performed By: #### C DP, GLUSC #### [facility] [address] [place], [place] [id number] Scrap Dealer: Greg Castillo MD Lymphocytes (Bld) [#/Vol] 1.53 10*3/uL Normal 1.00-4.80 [facility] Comment on above: Performed By: #### C DP, GLUSC #### [facility] [address] [place] [id number] Scrap Dealer: Greg Castillo MD Lymphocytes/100 WBC (Bld) 24 % Normal 15-40 [facility] Comment on above: Performed By: #### C DP, GLUSC #### [facility] [address] [place] [address] Scrap Dealer: Greg Castillo MD MCH (RBC) [Entitic mass] 32.9 pg Normal 26.0-34.0 [facility] Comment on above: Performed By: #### C DP, GLUSC #### [facility] [address] [place] [address] Scrap Dealer: Greg Castillo MD MCHC (RBC) [Mass/Vol] 33.6 g/dL Normal 31.0-37.0 [facility] Comment on above: Performed By: #### C DP, GLUSC #### [facility] [address] [place] [address] Scrap Dealer: Greg Castillo MD MCV (RBC) [Entitic vol] 97.8 fL Normal 80.0-100.0 [facility] Comment on above: Performed By: #### C DP, GLUSC #### [facility] [address] [place] [id number] Scrap Dealer: Greg Castillo MD Monocytes (Bld) [#/Vol] 0.41 10*3/uL Normal 0.00-1.00 [facility] Comment on above: Performed By: #### C DP, GLUSC #### [facility] [address] [place] [id number] Scrap Dealer: Greg Castillo MD Monocytes/100 WBC (Bld) 6 % Normal 4-8 [facility] Comment on above: Performed By: #### C DP, GLUSC #### [facility] [address] [place], [place] [id number] (123) Scrap Dealer: Greg Castillo MD Neutrophil (Seg) 67 % Normal 47-75 [facility] Comment on above: Performed By: #### C DP, GLUSC #### [facility] [address] [place], [place] [phone] (994) Scrap Dealer: Greg Castillo MD Platelet mean volume (Bld) [Entitic vol] 9.5 fL Normal 6.0-12.0 [facility] Comment on above: Performed By: #### C DP, GLUSC #### [facility] [address] [place], [place] [id number] (156) Scrap Dealer: Greg Castillo MD Platelets (Bld) [#/Vol] 155 10*3/uL Normal 140-450 [facility] Comment on above: Performed By: #### C DP, GLUSC #### [facility] [address] [place] [address] (911) Scrap Dealer: Greg Castillo MD RBC (Bld) [#/Vol] 3.62 10*6/uL Low 4.00-5.20 [facility] Comment on above: Performed By: #### C DP, GLUSC #### [facility] [address] [place], [place] [phone] (958) Scrap Dealer: Greg Castillo MD WBC (Bld) [#/Vol] 6.4 10*3/uL Normal 3.5-11.0 [facility] Comment on above: Performed By: #### C DP, GLUSC #### [facility] [address] [place], [place] [phone] (954) Scrap Dealer: Greg Castillo MD Glucose David Scr 50gon 2023 Glucose [Mass/Vol] 108 mg/dL Normal 70-135 [facility] Comment on above: Performed By: #### C DP, GLUSC #### [facility] [address] [place] [address] Scrap Dealer: Greg Castillo MD Glu Administered via Glucola Normal [facility] Comment on above: Performed By: #### C DP, GLUSC #### [facility] [address] [place] [address] Scrap Dealer: Greg Castillo MD Glucose tolerance, 1 houron 04-28-2023 GLU ADMN Glucola [facility] Glucose 1 Hr post 50 g glucose PO [Mass/Vol] 108 mg/dL 70 - 135 mg/dL [facility] Discharge Instructionson Discharge Instructions [id number]#1.00CD:127 Normal [facility] Auto Diffon 01-03-2023 Basophils/100 WBC (Bld) 0.5 % Normal 0.0-2.0 [facility] Comment on above: Order Comment: Order Added by Discern Expert. Performed By: #### 2 481831, 9980509, [id number], [id number] #### [facility] [address] [place] [address] Basophils/Leukocytes Auto (Bld) [Pure # fraction] 0.0 E9/L Normal 0.0-0.2 [facility] Comment on above: Order Comment: Order Added by Discern Expert. Performed By: #### 2 216962, 9531462, [id number], [id number] #### [facility] [address] [place] [address] Eosinophils/100 WBC (Bld) 0.3 % Normal 0.0-8.0 [facility] Comment on above: Order Comment: Order Added by Discern Expert. Performed By: #### 2 635640, 9631771, [id number], [id number] #### [facility] [address] [place] [address] Eosinophils/Leukocyte s Auto (Bld) [Pure # fraction] 0.0 E9/L Normal 0.0-0.5 [facility] Comment on above: Order Comment: Order Added by Discern Expert. Performed By: #### 2 693452, 5157001, 60961693, [id number] #### [facility] [address] [place] [address] Lymphocytes/100 WBC (Bld) 29.1 % Normal 14.0-50.0 [facility] Comment on above: Order Comment: Order Added by Discern Expert. Performed By: #### 2 239215, 1416917, 17785714, 1719824 #### [facility] [address] [place] [address] Lymphocytes/Leukocyte s Auto (Bld) [Pure # fraction] 1.7 E9/L Normal 1.0-4.0 [facility] Comment on above: Order Comment: Order Added by Kya Expert. Performed By: #### 2 883995, 9971714, 36469796, 2836774 #### [facility] [address] [place] [address] Monocytes/100 WBC (Bld) 5.1 % Normal 4.0-14.0 [facility] Comment on above: Order Comment: Order Added by Kya Expert. Performed By: #### 2 869254, 8168257, 24702524, 1820161 #### [facility] [address] [place] [address] Monocytes/Leukocytes Auto (Bld) [Pure # fraction] 0.3 E9/L Normal 0.2-1.0 [facility] Comment on above: Order Comment: Order Added by Discern Expert. Performed By: #### 2 242814, 5138873, 34681353, 2970620 #### [facility] [address] [place] [address] Neutrophils/100 WBC (Bld) 65.0 % Normal 36.0-75.0 [facility] Comment on above: Order Comment: Order Added by Kya Expert. Performed By: #### 2 251303, 7232697, 45368359, 7568533 #### [facility] [address] [place] [address] Neutrophils/Leukocyte s Auto (Bld) [Pure # fraction] 3.8 E9/L Normal 2.0-7.5 [facility] Comment on above: Order Comment: Order Added by Discern Expert. Performed By: #### 2 365813, 2006643, 84644834, 7874466 #### [facility] [address] [place] [address] BMPon 01-03-2023 Creatinine [Mass/Vol] 0.5 mg/dL Normal 0.5-1.3 [facility] Comment on above: Performed By: #### 2 025192, 5087177, 99403039, 3965311 #### [facility] [address] [place] [address] Urea nitrogen [Mass/Vol] 8 mg/dL Normal 5-21 [facility] Comment on above: Performed By: #### 2 314244, 3654337, 56724628, 9794819 #### [facility] [address] [place] [address] Urea nitrogen/Creatinine [Mass ratio] 16 No Units Normal 10-20 [facility] Comment on above: Performed By: #### 2 241070, 5646604, 81140708, 4196249 #### [facility] [address] [place] [address] Anion gap [Moles/Vol] 7 mmol/L Normal 6-16 [facility] Comment on above: Performed By: #### 2 903125, 4572979, 41035614, 6887087 #### [facility] [address] [place] [address] Calcium [Mass/Vol] 9.3 mg/dL Normal 8.9-11.1 [facility] Comment on above: Performed By: #### 2 410170, 4641487, 40736347, 8434366 #### [facility] [address] [place] [address] Chloride [Moles/Vol] 105 mmol/L Normal 101-111 [facility] Comment on above: Performed By: #### 2 689107, 8688882, 06519929, 5967559 #### [facility] [address] [place] [address] CO2 [Moles/Vol] 24 mmol/L Normal 21-31 [facility] Comment on above: Performed By: #### 2 055625, 8328275, 45289798, 8577746 #### [facility] [address] [place] [address] Glucose [Mass/Vol] 108 mg/dL Normal 55-199 [facility] Comment on above: Result Comment: If t his glucose result represents a fasting glucose, interpretation should refer to the following reference range: 55-99 mg/dL Performed By: #### 2 247662, 7789235, 94465413, 7362251 #### [facility] [address] [place] [address] Potassium [Moles/Vol] 3.4 mmol/L Low 3.5-5.3 [facility] Comment on above: Performed By: #### 2 002855, 8825499, 22632155, 8055542 #### [facility] [address] [place] [address] Sodium [Moles/Vol] 133 mmol/L Low 135-145 [facility] Comment on above: Performed By: #### 2 844503, 2239796, 13691248, 5391371 #### [facility] [address] [place] [address] CBC w/ Auto Diffon 3 Erythrocyte distribution width (RBC) [Ratio] 12.5 % Normal 10.9-14.2 [facility] Comment on above: Performed By: #### 2 436449, 9781231, 43101543, 0071203 #### [facility] [address] [place] [address] Hematocrit (Bld) [Volume fraction] 39.8 % Normal 34.0-46.0 [facility] Comment on above: Performed By: #### 2 876697, 5428532, 68151276, 9006595 #### [facility] [address] [place] [address] Hemoglobin (Bld) [Mass/Vol] 14.2 g/dL Normal 12.0-16.0 [facility] Comment on above: Performed By: #### 2 930634, 7350494, 28428781, 3523985 #### [facility] [address] [place] [address] MCH (RBC) [Entitic mass] 31.7 pg Normal 27.0-34.0 [facility] Comment on above: Performed By: #### 2 089321, 8887705, 54746130, 1251809 #### [facility] [address] [place] [address] MCHC (RBC) [Mass/Vol] 35.6 g/dL Normal 31.4-36.0 [facility] Comment on above: Performed By: #### 2 054079, 5077614, 09954996, 4948677 #### [facility] [address] [place] [address] MCV (RBC) [Entitic vol] 89.0 fL Normal 80.0-100.0 [facility] Comment on above: Performed By: #### 2 873738, 6045902, 59163283, 4757418 #### [facility] [address] [place] [address] Platelet mean volume (Bld) [Entitic vol] 7.6 fL Normal 6.4-10.8 [facility] Comment on above: Performed By: #### 2 513243, 3846423, 76468286, 0553435 #### [facility] [address] [place] [address] Platelets (Bld) [#/Vol] 170.0 E9/L Normal 150.0-500.0 [facility] Comment on above: Performed By: #### 2 789043, 3436254, 81487298, 4694147 #### [facility] [address] [place] [address] RBC (Bld) [#/Vol] 4.5 E12/L Normal 4.3-5.9 [facility] Comment on above: Performed By: #### 2 559591, 8534759, 17903166, 5399969 #### [facility] [address] [place] [address] WBC corrected for nucl RBC Auto (Bld) [#/Vol] 5.8 E9/L Normal 4.0-11.0 [facility] Comment on above: Performed By: #### 2 441009, 9776201, 08208110, 8209576 #### [facility] [address] [place] [address] CHEMISTRYOrdered By: SYSTEM SYSTEM on 01-03-2023 Anion gap [Moles/Vol] 7 mmol/L Normal 6 - 16 mEq/L [facility] Remisol Calcium [Mass/Vol] 9.3 mg/dL Normal 8.9 - 11. 1 mg/dL [facility] Chloride [Moles/Vol] 105 mmol/L Normal 101 - 1 11 mmol/L [facility] CO2 [Moles/Vol] 24 mmol/L Normal 21 - 31 mmol/L [facility] Creatinine [Mass/Vol] 0.5 mg/dL Normal 0.5 - 1.3 mg/dL [facility] Remisol GFR/1.73 sq M.predicted among non-blacks MDRD (S/P/Bld) [Vol rate/Area] 133 mL/min/1.73 m2 Normal >=59mL/min/1. 73 m2 [facility] Chem S Glucose [Mass/Vol] 108 mg/dL Normal [...] Treatmenton 12-25 Consent for Treatment [id number] #1.00CD:127 Normal [facility] ED Clinical Summaryon 2022 ED Clinical Summary [place] [id number] ED Clinical Summary Person Information Name: GRACIELA OLIVAREZ [place] Age: 27 Years : 1995 Sex: Female Language: Uzbek PCP: Gloria CASTELLANOS CNP Marital Status: Visit [...] 20:50:04 01/03/2023 20:50:04 01/03/2023 20:50:04 ADDRESS: [address] [place] [id number] [facility] DOC NOTES: MEDICAL INFORMATION: Prescriptions Given: Medications to Continue with No Changes Other Medications ondansetron (Zofran ODT 4 mg Tab-Dis) 1 Tablets By Mouth every 6 hours as needed Nausea/Vomiting. Refills: 0. valacyclovir (valacyclovir 1 g Tab) take 2 tab at first sign of cold sore repeat in 12 hours.. Refills: 1. PATIENT EDUCATION INFORMATION: Instructions: Morning Sickness, Pkue-hs-Gxog Follow up: With: Address: When: Toni WATKINS [facility], [address] [place] [address] [place] [address] Business (1) In 3 days 01/06/2023 DIAGNOSIS: Nausea/vomiting in Normal [facility] ED Note-Physicianon 01-04-20 ED Note-Physician Basic Information Time Seen: Velia Correa PA-C 01/03/2023 18:[address] De Paz for OB , [place] 08/05/2023. c/o N/V x 2 weeks. denies [...] she is dehydrated. Patient is followed by AUDIO EXPERIENCE EXPERT, Dr. 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 The attending physician was in the Emergency [...] is unknown (more content not included)... Normal [facility] Comment on above: Result Comment: [...] these instructions at home: Medicines ? Take lmmw-eiw-sjrygyx and prescription medicines only as told by [...] ? Try carmen arnoldo made with real carmne, carmen tea made from fresh grated carmen, [...] provider. Document Revised: 11/25/2020 Document Reviewed: 11/04/2020 [employer] Patient Education ? 2022 [facility]. Normal [facility] ED Patient Summaryon 023 ED Patient Summary [address] [address] Patient Discharge Instructions Person Information Name: GRACIELA OLIVAREZ Age: 27 Years Arrival Date: 01/03/2023 16:15:39 Discharge Diagnosis: Nausea/vomiting in Primary Care Physician: Gloria CASTELLANOS CNP Provider Information Primary Provider: Kemal Sharma DO Advanced Dry Wall Installer:Velia Correa PA-C The exam and treatment you received in the Emergency Department were for an urgent problem and are not intended as complete care. It is important that you follow up with a doctor, nurse practitioner, or physician?s baking assistant for ongoing care. If your symptoms become worse or you do not improve as expected and you are unable to reach your usual health care provider, you should return to the Emergency Department. We are available 24 hours a day. GRACIELA OLIVAREZ has been given the following list of patient education materials, prescriptions and follow-up instructions: Follow-up Instructions: With: Address: [facility] [address] [place] [address] [place] [address] Business (1) In 3 days 01/06/2023 In the event that this physician does not participate in your insurance network, please consult with your insurance company to find a nearby participating provider. Patient Education Materials: Morning Sickness, Kaky-zj-Hhrp A MESSAGE TO ALL PATIENTS REGARDING OPIOIDS PRESCRIPTION OPIOIDS: WHAT YOU NEED TO KNOW Prescription opioids can be used to help relieve prestyjh-jp-dtqxew pain and are often prescribed following a [...] be struggling with addiction, tell your health lawn care technician and ask for guidance or call [facility]?S [employer] (more content not included)... Normal [facility] HEMATOLOGYOrdered By: SYSTEM SYSTEM on [...] 14.2 g/dL Normal 12.0 - 16.0 gm/dL FT [facility] MCH (RBC) [Entitic mass] 31.7 pg Normal 27.0 - 34.0 pg FT [facility] MCHC (RBC) [Mass/Vol] 35.6 g/dL Normal 31.4 - 36.0 gm/dL FT [facility] MCV (RBC) [Entitic vol] 89.0 fL Normal 80.0 - 100.0 fL FT [facility] Platelet mean volume (Bld) [Entitic vol] 7.6 fL Normal 6.4 - 10.8 fL FT [facility] Platelets (Bld) [#/Vol] 170.0 E9/L Normal 150.0 - 500.0 E9/L FT [facility] RBC (Bld) [#/Vol] 4.5 E12/L Normal 4.3 - 5.9 E12/L FT [facility] WBC corrected for nucl RBC Auto (Bld) [#/Vol] 5.8 E9/L Normal 4.0 - 11.0 E9/L FT [facility] UA With Cult Reflexon 2022 Bilirubin Ql (U) 1+ Abnormal Negative [facility] Comment on above: Performed By: #### 1 [id number] #### [facility] [address] [place] [address] Clarity (U) CLEAR Normal Clear [facility] Comment on above: Performed By: #### 1 [id number] #### [facility] [address] [place] [address] Color (U) YELLOW Normal Yellow [facility] Comment on above: Performed By: #### 1 [id number] #### [facility] [address] [place] [address] Epithelial cells.squamous LM.HPF (Urine sed) [#/Area] 3-4 Normal 0-2 [facility] Comment on above: Performed By: #### 1 [id number] #### [facility] [address] [place] [address] Glucose Test strip (U) [Mass/Vol] Negative Normal Negative [facility] Comment on above: Performed By: #### 1 [id number] #### [facility] [address] [place] [address] Hemoglobin Ql (U) 2+ Abnormal Negative [facility] Comment on above: Performed By: #### 1 [id number] #### [facility] [address] [place] [address] Ketones (U) [Mass/Vol] 2+ Abnormal Negative [facility] Comment on above: Performed By: #### 1 [id number] #### [facility] [address] [place] [address] [place].plasma/Lithiu m.RBC (Bld) [Mass ratio] 0-3 Normal 0-3 [facility] Comment on above: Performed By: #### 1 [id number] #### [facility] [address] [place] [address] Mucus Ql (Urine sed) 2+ Normal [facility] Comment on above: Performed By: #### 1 [id number] #### [facility] [address] [place] [address] Nitrite Ql (U) Negative Normal Negative [facility] Comment on above: Performed By: #### 1 [id number] #### [facility] [address] [place] [address] pH (U) 6.0 [pH] Invalid Interpretation Code 5.0-9.0 [facility] Comment on above: Performed By: #### 1 [id number] #### [facility] [address] [place] [address] Protein (U) [Mass/Vol] 1+ Abnormal Negative [facility] Comment on above: Performed By: #### 1 [id number] #### [facility] [address] [place] [id number] Specific gravity (U) [Rel density] >=1.030 Invalid Interpretation Code 1.005-1.030 [facility] Comment on above: Performed By: #### 1 [id number] #### [facility] [address] [id number] Type of Urine collection method Clean Catch Normal [facility] Comment on above: Performed By: #### 1 [id number] #### [facility] [address] [place] [address] Urobilinogen Qn (U) 1.0 {Maggy'U}/dL Normal 0.0-1.0 [facility] Comment on above: Performed By: #### 1 [id number] #### [facility] [address] [place] [address] WBC Auto Ql (U) Negative Normal Negative [facility] Comment on above: Performed By: #### 1 [id number] #### [facility] [address] [place] [address] WBC LM.HPF (Urine sed) [#/Area] 0-5 Normal 0-5 [facility] Comment on above: Performed By: #### 1 [id number] #### [facility] [address] [place] [address] URINALYSISOrdered By: Dianne Ortiz on 01-03-2023 Bilirubin [...] Interpretation Code Negative [facility] UA Auto SS [place].plasma/Lithiu m.RBC (Bld) [Mass ratio] 0-3 /HPF Normal [...] [facility] UA Auto SS Urobilinogen Qn (U) 1.9402349 {Maggy'U}/dL Normal 0.0 - 1.0 EU/dL [facility] UA Auto SS WBC Auto Ql (U) Negative (01/03/23 5:04 PM) Normal Negative [facility] UA Auto SS WBC LM.HPF (Urine sed) [#/Area] 0-5 /HPF Normal 0-5/HPF [facility] UA Auto SS eGFRon 01-03-2023 GFR/1.73 sq M.predicted among non-blacks MDRD (S/P/Bld) [Vol rate/Area] 133 mL/min/1.73 m2 Normal >=59 [facility] Comment on above: Order Comment: Order added by Discern Expert. Result Comment: Evs Tech diya kidney disease could be indicated at eGFR's of less than 60 mL/min/1.73m2. Kidney failure is indicated at less than 15 mL/min/1.73m2. Performed By: #### 2 [id number], [id number] #### [facility] [address] [place] [address] CULTURE URINEon 01-10-2022 CULTURE URINE Culture Observations: MODERATE GROWTH OF MIXED GENITAL RIC. NO POTENTIAL PATHOGENS SEEN. Normal [facility] Comment on above: Performed By: #### U RCX #### [facility] [address] [place] [address] Dr. Narciso Amaral UA (CLEAN/CATCH) CORRECTIONAL SUPPLY SUPERVISOR/MICRO I F IND.on 01-10-2022 Bilirubin Ql (U) Negative Normal NEGATIVE [facility] Comment on above: Performed By: #### U MICRO, UACSIND #### [facility] [address] [place] [address] Dr. Narciso Amaral Clarity (U) CLEAR Normal CLEAR [facility] Comment on above: Performed By: #### U MICRO, UACSIND #### [facility] [address] [place] [address] Dr. Narciso Amaral Color (U) LT. YELLOW Normal YELLOW [facility] Comment on above: Performed By: #### U MICRO, UACSIND #### [facility] [address] [place] [address] Dr. Narciso Amaral Glucose Ql (U) Negative Normal NEGATIVE [facility] Comment on above: Performed By: #### U MICRO, UACSIND #### [facility] [address] [place] [address] Dr. Narciso Amaral Hemoglobin Ql (U) LARGE Abnormal NEGATIVE [facility] Comment on above: Performed By: #### U MICRO, UACSIND #### [facility] [address] [place] [address] Dr. Narciso Amaral Ketones Ql (U) Negative Normal NEGATIVE [facility] Comment on above: Performed By: #### U MICRO, UACSIND #### [facility] [address] [place] [address] Dr. Narciso Amaral LEUKOCYTES TRACE Abnormal NEGATIVE [facility] Comment on above: Performed By: #### U MICRO, UACSIND #### [facility] [address] [address] [address] Narciso Amaral Nitrite Ql (U) Negative Normal NEGATIVE [facility] Comment on above: Performed By: #### U MICRO, UACSIND #### [facility] [address] [address] [address] Narciso Amaral pH (U) 6.0 [pH] Normal 5-9 [facility] Comment on above: Performed By: #### U MICRO, UACSIND #### [facility] [address] [address] [address] Narciso Amaral SPEC GRAVITY <=1.005 Abnormal 1.005-<=1.025 [facility] Comment on above: Performed By: #### U MICRO, UACSIND #### [facility] [address] [address] [address] Narciso Amaral UA PROTEIN Negative Normal NEGATIVE/ TRACE [facility] Comment on above: Performed By: #### U MICRO, UACSIND #### [facility] [address] [address] [address] Narciso Amaral UR MICRO IND INDICATED Normal [facility] Comment on above: Performed By: #### U MICRO, UACSIND #### [facility] [address] [address] [address] Narciso Amaral Urobilinogen Qn (U) 0.2 {Maggy'U}/dL Normal 0.2 - 1. 0 [facility] Comment on above: Performed By: #### U MICRO, UACSIND #### [facility] [address] [address] [address] Narciso Amaral URINE MICROSCOPIC ONLYon BACTERIA SMALL Abnormal NONE SEEN [facility] Comment on above: Performed By: #### U MICRO, UACSIND #### [facility] [address] [address] [address] Narciso Amaral Bacteria identified Cx Nom (U) INDICATED Normal [facility] Comment on above: Performed By: #### U MICRO, UACSIND #### [facility] [address] [place] [address] Dr. Narciso Amaral CAST NONE SEEN Normal NONE SEEN [facility] Comment on above: Performed By: #### U MICRO, UACSIND #### [facility] [address] [place] [address] Dr. Narciso Amaral Crystals LM Nom (Urine sed) NONE SEEN Normal NONE SEEN [facility] Comment on above: Performed By: #### U MICRO, UACSIND #### [facility] [address] [place] [address] Dr. Narciso Amaral Epithelial cells LM Ql (Urine sed) FEW Abnormal NONE SEEN /RARE [facility] Comment on above: Performed By: #### U MICRO, UACSIND #### [facility] [address] [place] [address] Dr. Narciso Amaral MUCOUS NONE SEEN Normal NONE SEEN [facility] Comment on above: Performed By: #### U MICRO, UACSIND #### [facility] [address] [place] [address] Dr. Narciso Amaral RBC 5-10 Abnormal 0-2 [facility] Comment on above: Performed By: #### U MICRO, UACSIND #### [facility] [address] [place] [address] Dr. Narciso Amaral WBC 0-2 Abnormal NONE SEEN [facility] Comment on above: Performed By: #### U MICRO, UACSIND #### [facility] [address] [place] [address] Dr. Narciso Amaral CBC AUTO DIFFon 01-09-2022 BASO # 0.0 103/ul Normal 0.0-0.1 [facility] Comment on above: Performed By: #### C BC #### [facility] [address] [place] [address] Dr. Narciso Amaral Basophils/100 WBC (Bld) 0.2 % Normal 0.2-2.0 [facility] Comment on above: Performed By: #### C BC #### [facility] [address] [place] [address] Dr. Narciso Amaral EO # 0.0 103/ul Normal 0.0-0.7 [facility] Comment on above: Performed By: #### C BC #### [facility] [address] [place] [address] Dr. Narciso Amaral Eosinophils/100 WBC (Bld) 0.1 % Critically low 0.9-7.0 [facility] Comment on above: Performed By: #### C BC #### [facility] [address] [place] [address] Dr. Narciso Amaral Erythrocyte distribution width (RBC) [Ratio] 12.8 % Normal 11.0-15.0 [facility] Comment on above: Performed By: #### C BC #### [facility] [address] [place] [address] Dr. Narciso Amaral Hematocrit (Bld) [Volume fraction] 30.8 % Critically low 36.0-48.0 [facility] Comment on above: Performed By: #### C BC #### [facility] [address] [place] [address] Dr. Narciso Amaral Hemoglobin (Bld) [Mass/Vol] 10.0 g/dL Critically low 12.0-16.0 [facility] Comment on above: Performed By: #### C BC #### [facility] [address] [place] [address] Dr. Narciso Amaral IG # 0.02 10e3/ul Normal 0.00-0.03 [facility] Comment on above: Performed By: #### C BC #### [facility] [address] [place] [address] Dr. Narciso Amaral IG % 0.2 % Normal 0.0-0.5 [facility] Comment on above: Performed By: #### C BC #### [facility] [address] [place] [address] Dr. Narciso Amaral LYMPH # 1.4 103/ul Normal 1.2-3.8 [facility] Comment on above: Performed By: #### C BC #### [facility] [address] [place] [address] Dr. Narciso Amaral Lymphocytes/100 WBC (Bld) 14.0 % Critically low 20.5-60.0 [facility] Comment on above: Performed By: #### C BC #### [facility] [address] [place] [address] Dr. Narciso Amaral MANUAL DIFF REQ NO Normal [facility] Comment on above: Performed By: #### C BC #### [facility] [address] [place] [address] Dr. Narciso Amaral MCH (RBC) [Entitic mass] 31.7 pg Normal 26.7-34.0 [facility] Comment on above: Performed By: #### C BC #### [facility] [address] [place] [address] Dr. Narciso Amaral MCHC (RBC) [Mass/Vol] 32.5 g/dL Normal 29.9-35.2 [facility] Comment on above: Performed By: #### C BC #### [facility] [address] [place] [address] Dr. Narciso Amaral MCV (RBC) [Entitic vol] 97.8 fL Normal 81.0-99.0 [facility] Comment on above: Performed By: #### C BC #### [facility] [address] [place] [address] Dr. Narciso Amaral MONO # 0.8 103/ul Normal 0.3-0.8 [facility] Comment on above: Performed By: #### C BC #### [facility] [address] [place] [address] Dr. Narciso Amaral Monocytes/100 WBC (Bld) 8.2 % Normal 1.7-12.0 [facility] Comment on above: Performed By: #### C BC #### [facility] [address] [place] [address] Dr. Narciso Amaral NEUT # 7.9 103/ul Critically high 1.4-6.5 [facility] Comment on above: Performed By: #### C BC #### [facility] [address] [place] [address] Dr. Narciso Amaral Neutrophils/100 WBC (Bld) 77.3 % Critically high 43.0-75.0 [facility] Comment on above: Performed By: #### C BC #### [facility] [address] [address] [address] Narciso Amaral Platelet mean volume (Bld) [Entitic vol] 9.9 fL Normal 9.5-13.5 [facility] Comment on above: Performed By: #### C BC #### [facility] [address] [address] [address] Narciso Amaral PLT 143 103/ul Critically low 150-450 [facility] Comment on above: Performed By: #### C BC #### [facility] [address] [address] [address] Narciso Amaral RBC 3.15 106/ul Critically low 4.20-5.40 [facility] Comment on above: Performed By: #### C BC #### [facility] [address] [place] [address] Dr. Narciso Amaral WBC 10.2 103/ul Normal 4.0-11.0 [facility] Comment on above: Performed By: #### C BC #### [facility] [address] [place] [address] Dr. Narciso Amaral CBC AUTO DIFFon 01-08-2022 BASO # 0.0 103/ul Normal 0.0-0.1 [facility] Comment on above: Performed By: #### C BC #### [facility] [address] [place] [address] Dr. Narciso Amaral Basophils/100 WBC (Bld) 0.3 % Normal 0.2-2.0 [facility] Comment on above: Performed By: #### C BC #### [facility] [address] [place] [address] Dr. Narciso Amaral EO # 0.0 103/ul Normal 0.0-0.7 [facility] Comment on above: Performed By: #### C BC #### [facility] [address] [place] [address] Dr. Narciso Amaral Eosinophils/100 WBC (Bld) 0.4 % Critically low 0.9-7.0 [facility] Comment on above: Performed By: #### C BC #### [facility] [address] [place] [address] Dr. Narciso Amaral Erythrocyte distribution width (RBC) [Ratio] 12.7 % Normal 11.0-15.0 [facility] Comment on above: Performed By: #### C BC #### [facility] [address] [place] [address] Dr. Narciso Amaral Hematocrit (Bld) [Volume fraction] 38.0 % Normal 36.0-48.0 [facility] Comment on above: Performed By: #### C BC #### [facility] [address] [place] [address] Dr. Narciso Amaral Hemoglobin (Bld) [Mass/Vol] 12.5 g/dL Normal 12.0-16.0 [facility] Comment on above: Performed By: #### C BC #### [facility] [address] [place] [address] Dr. Narciso Amaral IG # 0.03 10e3/ul Normal 0.00-0.03 [facility] Comment on above: Performed By: #### C BC #### [facility] [address] [place] [address] Dr. Narciso Amaral IG % 0.4 % Normal 0.0-0.5 [facility] Comment on above: Performed By: #### C BC #### [facility] [address] [place] [address] Dr. Narciso Amaral LYMPH # 1.3 103/ul Normal 1.2-3.8 [facility] Comment on above: Performed By: #### C BC #### [facility] [address] [place] [address] Dr. Narciso Amaral Lymphocytes/100 WBC (Bld) 17.6 % Critically low 20.5-60.0 [facility] Comment on above: Performed By: #### C BC #### [facility] [address] [place] [address] Dr. Narciso Amaral MANUAL DIFF REQ NO Normal [facility] Comment on above: Performed By: #### C BC #### [facility] [address] [place] [address] Dr. Narciso Amaral MCH (RBC) [Entitic mass] 31.6 pg Normal 26.7-34.0 [facility] Comment on above: Performed By: #### C BC #### [facility] [address] [place] [address] Dr. Narciso Amaral MCHC (RBC) [Mass/Vol] 32.9 g/dL Normal 29.9-35.2 [facility] Comment on above: Performed By: #### C BC #### [facility] [address] [place] [address] Dr. Narciso Amaral MCV (RBC) [Entitic vol] 96.0 fL Normal 81.0-99.0 [facility] Comment on above: Performed By: #### C BC #### [facility] [address] [place] [address] Dr. Narciso Amaral MONO # 0.5 103/ul Normal 0.3-0.8 [facility] Comment on above: Performed By: #### C BC #### [facility] [address] [place] [address] Dr. Narciso Amaral Monocytes/100 WBC (Bld) 6.2 % Normal 1.7-12.0 [facility] Comment on above: Performed By: #### C BC #### [facility] [address] [place] [address] Dr. Narciso Amaral NEUT # 5.5 103/ul Normal 1.4-6.5 [facility] Comment on above: Performed By: #### C BC #### [facility] [address] [place] [address] Dr. Narciso Amaral Neutrophils/100 WBC (Bld) 75.1 % Critically high 43.0-75.0 [facility] Comment on above: Performed By: #### C BC #### [facility] [address] [place] [address] Dr. Narciso Amaral Platelet mean volume (Bld) [Entitic vol] 10.3 fL Normal 9.5-13.5 [facility] Comment on above: Performed By: #### C BC #### [facility] [address] [address] [address] Narciso Amaral PLT 159 103/ul Normal 150-450 [facility] Comment on above: Performed By: #### C BC #### [facility] [address] [address] [address] Narciso Amaral RBC 3.96 106/ul Critically low 4.20-5.40 [facility] Comment on above: Performed By: #### C BC #### [facility] [address] [address] [address] Narciso Amaral WBC 7.4 103/ul Normal 4.0-11.0 [facility] Comment on above: Performed By: #### C BC #### [facility] [address] [place] [address] Dr. Narciso Amaral Covid-19 PCR ([facility])on 12-25 SARS-CoV-2 (COVID-19) RNA MOHAN+probe Ql (Unsp spec) Not detected Normal NOT DETECTED [facility] Comment on above: Result Comment: When diagnostic [...] for this test is supported by the [place] of Health and Human Service's declaration that [...] used). Performed By: #### C VDTBH #### [facility] [address] [place] [address] Dr. Narciso Amaral DRUG SCREEN RAPID (URINE)on 01-08-2022 AMP Negative Normal NEGATIVE [facility] Comment on above: Performed By: #### C T/NGNA #### [facility] [address] [place] [address] Dr. Narciso Amaral BAR Negative Normal NEGATIVE [facility] Comment on above: Performed By: #### C T/NGNA #### [facility] [address] [place] [address] Dr. Narciso Amaral BUP Negative Normal NEGATIVE [facility] Comment on above: Performed By: #### C T/NGNA #### [facility] [address] [place] [address] Dr. Narciso Amaral BZO Negative Normal NEGATIVE [facility] Comment on above: Performed By: #### C T/NGNA #### [facility] [address] [place] [address] Dr. Narciso Amaral TREY Negative Normal NEGATIVE [facility] Comment on above: Performed By: #### C T/NGNA #### [facility] [address] [place] [address] Dr. Narciso Amaral CUT-OFFS SEE BELOW Normal [facility] Comment on above: Result Comment: AMP [...] ng/mL Performed By: #### C T/NGNA #### [facility] [address] [place] [address] Dr. Narciso Amaral DRUG CUT HEADER DRUG CLASS TEST SYSTEM CUT-OFF CONCENTRATIONS ARE FOLLOWS: Normal [facility] Comment on above: Performed By: #### C T/NGNA #### [facility] [address] [place] [address] Dr. Narciso Amaral mAMP Negative Normal NEGATIVE [facility] Comment on above: Performed By: #### C T/NGNA #### [facility] [address] [place] [address] Dr. Narciso Amaral MTD Negative Normal NEGATIVE [facility] Comment on above: Performed By: #### C T/NGNA #### [facility] [address] [place] [address] Dr. Narciso Amaral OPI Negative Normal NEGATIVE [facility] Comment on above: Performed By: #### C T/NGNA #### [facility] [address] [place] [address] Dr. Narciso Amaral OXY Negative Normal NEGATIVE [facility] Comment on above: Performed By: #### C T/NGNA #### [facility] [address] [place] [address] Dr. Narciso Amaral PCP Negative Normal NEGATIVE [facility] Comment on above: Performed By: #### C T/NGNA #### [facility] [address] [place] [address] Dr. Narciso Amaral PPX Negative Normal NEGATIVE [facility] Comment on above: Performed By: #### C T/NGNA #### [facility] [address] [place] [address] Dr. Narciso Amaral TCA Negative Normal NEGATIVE [facility] Comment on above: Performed By: #### C T/NGNA #### [facility] [address] [place] [address] Dr. Narciso Amaral THC Negative Normal NEGATIVE [facility] Comment on above: Performed By: #### C T/NGNA #### [facility] [address] [place] [address] Dr. Narciso Amaral TYPE AND SCREENon 01-08-2022 TYPE AND SCREEN Negative Normal [facility] Comment on above: Performed By: #### C T/NGNA #### [facility] [address] [place] [address] Dr. Narciso Amaral US PREG BIOPHY W [...] KRISTINA ESTRADA Date: 2022-01-07 16:20 Normal [facility] US PREG BIOPHY W NON STRESSo n [...] KRISTINA ESTRADA Date: 2021-12-31 16:27 Normal [facility] VAGINITIS/VAGINOSIS DNA PROB Julius 12-26-2021 Fany species Negative Normal Negative [facility] Comment on above: Performed By: #### C BC #### [facility] [address] [address] [address] Narciso Amaral Gardnerella vaginalis Negative Normal Negative [facility] Comment on above: Performed By: #### C BC #### [facility] [address] [address] [address] Narciso Amaral Trichomonas vaginalis Negative Normal Negative [facility] Comment on above: Performed By: #### C BC #### [facility] [address] [address] [address] Narciso Amaral US PREG BIOPHY W [...] KRISTINA ESTRADA Date: 2021-12-25 09:13 Normal [facility] GROUP B STREP CULTUREon 11-26 S. agalactiae Ag Ql (Unsp spec) Culture Observations: NEGATIVE FOR GROUP B STREPTOCOCCUS. Normal [facility] Comment on above: Performed By: #### C T/SHIMANA #### [facility] [address] [place] [address] Dr. Narciso Amaral US PREG GROWTHon 12-24-2021 US PREG GROWTH Ultrasound biophysical profile Ultrasound obstetrical, limited CLINICAL: Oligohydramnios follow-up. TECHNIQUE: Transabdominal obstetrical ultrasound was performed. Ultrasound biophysical profile was also performed by awning spreader. FINDINGS: 09/29/2021. FETUS AND PLACENTA: There is [...] gestational age according to Hadlock criteria. Remarks: Financial Secretary reports that Dr. Watkins is aware of findings. Electronically authenticated by: AMPARO PATEL Date: 2021-12-24 12:27 [facility] Hematocrit (Bld) [Volume fraction] 35.7 % Low 36 - 46 % [facility] Hemoglobin (Bld) [Mass/Vol] 11.9 g/dL Low 12.0 - 16.0 g/dL [facility] Interpretation and review of laboratory results Abnormal [facility] MCH (RBC) [Entitic mass] 32.8 pg 26 - 34 pg [facility] MCHC (RBC) [Mass/Vol] 33.4 g/dL 31 - 37 g/dL B ON [facility] MCV (RBC) [Entitic vol] 98.1 fL 80 - 100 fL [facility] Platelet distribution width (Bld) [Ratio] 12.1 % 12.1 - 15.2 % [facility] Platelets (Bld) [#/Vol] 178 10*3/uL [facility] RBC (Bld) [#/Vol] 3.64 10*6/uL Low 4.0 - 5.2 m/uL [facility] WBC (Bld) [#/Vol] 7.6 10*3/uL [facility] Glucose tolerance, 1 houron 10-28-2021 GLU ADMN Glucola [facility] Glucose tolerance screen 50g 134 mg/dL 70 - 135 mg/dL [facility] US PREG INCOMPLETE ANATOMYon 09-29-2021 US [...] by: GREG RODNEY Date: 2021-09-29 08:50 Normal [facility] US PREG ANATOMY SINGLEon US PREG [...] KRISTINA ESTRADA Date: 2021-09-01 16:26 Normal [facility] AFP MATERNAL FOR SPINA BIFID Aon 08-25-2021 AFP MoM 0.71 Normal [facility] Comment on above: Performed By: #### C BC #### [facility] [address] [address] [address] Narciso Amaral AFP Value 45.2 ng/mL Normal [facility] Comment on above: Performed By: #### C BC #### [facility] [address] [address] [address] Narciso Amaral AFP, Serum for Spina Bifida Report Normal [facility] Comment on above: Performed By: #### C BC #### [facility] [address] [address] [address] Narciso Amaral Comment Comment Normal [facility] Comment on above: Result Comment: Ky Magallon, Ph.D., [facility] Director . References: Available Upon Request. . Multiples Of Median Cutoffs For AFP Elevations Bernstein 2.5 Black 2.8 IDD 2.0 Twins 4.5 Abbreviation Definitions IDD - Insulin Dep Diabetes OSBR - Open Spina Bifida Risk . For further inquiries contact [employer] [facility] at [phone]. Performed By: #### C BC #### [facility] [address] [address] [address] Narciso Echevarria Age Collection Date 19.0 weeks Normal [facility] Comment on above: Performed By: #### C BC #### [facility] [address] [address] [address] Narciso Amaral Gestat, Age Based on LMP Normal [facility] Comment on above: Result Comment: Reca lculations are not recommended when gestational dating by LMP and ultrasound are within 10 days. Performed By: #### C BC #### [facility] [address] [address] [address] Narciso Amaral Insulin Dep Diabetes No Normal [facility] Comment on above: Performed By: #### C BC #### [facility] [address] [address] [address] Narciso Amaral Interpretation Comment Normal [facility] Comment on above: Result Comment: Inte [...] Customer Services to discuss available options. The [employer] recommends amniocentesis be offered to women age 35 and older. Performed By: #### C BC #### [facility] [address] [address] [address] Narciso Amaral [age] Normal [facility] Comment on above: Performed By: #### C BC #### [facility] [address] [address] [address] Narciso Amaral Multiple Gestation No Normal [facility] Comment on above: Performed By: #### C BC #### [facility] [address] [address] [address] Narciso Amaral [place] [id number] Normal [facility] Comment on above: Performed By: #### C BC #### [facility] [address] [address] [address] Narciso Amaral PDF . [facility] Comment on above: Performed By: #### C BC #### [facility] [address] [address] [address] Narciso Amaral Race [facility] Comment on above: Performed By: #### C BC #### [facility] [address] [address] [address] Narciso Amaral Test Results: Negative [facility] Comment on above: Performed By: #### C BC #### [facility] [address] [place] [address] Dr. Narciso Amaral PAP ACOG PANEL 2: 21 to 29on 08-23-2021 . . [facility] Comment on above: Performed By: #### C BC #### [facility] [address] [place] [address] Dr. Narciso Amaral Age Gdln ACOG Testing - [facility] Comment on above: Performed By: #### C BC #### [facility] [address] [place] [address] Dr. Narciso Amaral DIAGNOSIS: Comment [facility] Comment on above: Result Comment: NEGA TIVE FOR INTRAEPITHELIAL LESION OR MALIGNANCY. Performed By: #### C BC #### [facility] [address] [place] [address] Dr. Narciso Amaral Methodology: Comment [facility] Comment on above: Result Comment: This liquid based ThinPrep(R) pap test was screened with the use of an image guided system. Performed By: #### C BC #### [facility] [address] [place] [address] Dr. Narciso Amaral Note: Comment [facility] Comment on above: Result Comment: The Pap smear is a screening test designed to aid in the detection of premalignant and malignant conditions of the uterine cervix. It is not a diagnostic procedure and should not be used as the sole means of detecting cervical cancer. Both false-positive and false-negative reports do occur. . Performed By: #### C BC #### [facility] [address] [place] [address] Dr. 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 Narciso Amaral Reflex Criteria: Comment Normal [facility] Comment on above: Result Comment: The HPV DNA reflex criteria were not met with this specimen result therefore, no HPV testing was performed. . Performed By: #### C BC #### [facility] [address] [place] [address] Dr. Narciso Amaral Specimen adequacy: Comment Normal [facility] Comment on above: Result Comment: Sati sfactory for evaluation. No endocervical component is identified. Performed By: #### C BC #### [facility] [address] [place] [address] Dr. Narciso Amaral CHLAMYDIA/GONOCOCCUS MOHAN (SW AB/URINE/PAPon 08-21-2021 Chlamydia trachomatis, MOHAN Negative Normal Negative [facility] Comment on above: Performed By: #### C T/NGNA #### [facility] [address] [place] [address] Dr. Narciso Amaral Neisseria gonorrhoeae, MOHAN Negative Normal Negative [facility] Comment on above: Performed By: #### C T/NGNA #### [facility] [address] [place] [address] Dr. Narciso Amaral HEP B SURFACE ANTIGEN SCREEN on 07-04-2021 HBsAg Screen Negative Normal Negative [facility] Comment on above: Performed By: #### N BOX #### [facility] [address] [place] [address] Dr. Narciso Amaral HEPATITIS C VIRUS AB W/ REFL EX QUANTon 07-04-2021 HCV AB <0.1 Normal 0.0-0.9 [facility] Comment on above: Performed By: #### C BC #### [facility] [address] [place] [address] Dr. Narciso Amaral Interpretation: Comment Normal [facility] Comment on above: Result Comment: Nega tive Not infected with HCV, unless recent infection is suspected or other evidence exists to indicate HCV infection. Performed By: #### C BC #### [facility] [address] [place] [address] Dr. Narciso Amaral HIV 1 AND 2 WITH REFLEXon HIV Screen 4th Generation wRfx Non-Reactive Normal Non Reactive [facility] Comment on above: Result Comment: HIV Negative HIV-1/HIV-2 antibodies and HIV-1 p24 antigen were NOT detected. There is no laboratory evidence of HIV infection. Performed By: #### N BOX #### [facility] [address] [place] [address] Dr. Narciso Amaral RPR QUANTon 07-04-2021 Rapid Plasma Reagin, Quant Non-Reactive Normal NonRea<1:1 [facility] Comment on above: Performed By: #### C BC #### [facility] [address] [place] [address] Dr. Narciso Amaral RUBELLA AB IGGon 07-04-2021 Rubella Antibodies, IgG <0.90 Critically low Immune >0.99 [facility] Comment on above: Result Comment: Non- immune <0.90 Equivocal 0.90 - 0.99 Immune >0.99 Performed By: #### R UBIGG #### [facility] [address] [place] [address] Dr. Narciso Amaral CBC AUTO DIFFon 07-03-2021 BASO # 0.0 103/ul Normal 0.0-0.1 [facility] Comment on above: Performed By: #### C BC #### [facility] [address] [place] [address] Dr. Narciso Amaral Basophils/100 WBC (Bld) 0.4 % Normal 0.2-2.0 [facility] Comment on above: Performed By: #### C BC #### [facility] [address] [place] [address] Dr. Narciso Amaral EO # 0.0 103/ul Normal 0.0-0.7 [facility] Comment on above: Performed By: #### C BC #### [facility] [address] [place] [address] Dr. aNrciso Amaral Eosinophils/100 WBC (Bld) 0.4 % Critically low 0.9-7.0 [facility] Comment on above: Performed By: #### C BC #### [facility] [address] [place] [address] Dr. Narciso Amaral Erythrocyte distribution width (RBC) [Ratio] 11.9 % Normal 11.0-15.0 [facility] Comment on above: Performed By: #### C BC #### [facility] [address] [place] [address] Dr. Narciso Amaral Hematocrit (Bld) [Volume fraction] 33.0 % Critically low 36.0-48.0 [facility] Comment on above: Performed By: #### C BC #### [facility] [address] [place] [address] Dr. Narciso Amaral Hemoglobin (Bld) [Mass/Vol] 11.3 g/dL Critically low 12.0-16.0 [facility] Comment on above: Performed By: #### C BC #### [facility] [address] [place] [address] Dr. Narciso Amaral IG # 0.01 10e3/ul Normal 0.00-0.03 [facility] Comment on above: Performed By: #### C BC #### [facility] [address] [place] [address] Dr. Narciso Amaral IG % 0.2 % Normal 0.0-0.5 [facility] Comment on above: Performed By: #### C BC #### [facility] [address] [place] [address] Dr. Narciso Amaral LYMPH # 1.9 103/ul Normal 1.2-3.8 [facility] Comment on above: Performed By: #### C BC #### [facility] [address] [place] [address] Dr. Narciso Amaral Lymphocytes/100 WBC (Bld) 35.9 % Normal 20.5-60.0 [facility] Comment on above: Performed By: #### C BC #### [facility] [address] [place] [address] Dr. Narciso Amaral MANUAL DIFF REQ NO Normal [facility] Comment on above: Performed By: #### C BC #### [facility] [address] [place] [address] Dr. Narciso Amaral MCH (RBC) [Entitic mass] 31.6 pg Normal 26.7-34.0 [facility] Comment on above: Performed By: #### C BC #### [facility] [address] [place] [address] Dr. Narciso Amaral MCHC (RBC) [Mass/Vol] 34.2 g/dL Normal 29.9-35.2 [facility] Comment on above: Performed By: #### C BC #### [facility] [address] [place] [address] Dr. Narciso Amaral MCV (RBC) [Entitic vol] 92.2 fL Normal 81.0-99.0 [facility] Comment on above: Performed By: #### C BC #### [facility] [address] [place] [address] Dr. Narciso Amaral MONO # 0.2 103/ul Critically low 0.3-0.8 [facility] Comment on above: Performed By: #### C BC #### [facility] [address] [place] [address] Dr. Narciso Amaral Monocytes/100 WBC (Bld) 4.2 % Normal 1.7-12.0 [facility] Comment on above: Performed By: #### C BC #### [facility] [address] [place] [address] Dr. Narciso Amaral NEUT # 3.1 103/ul Normal 1.4-6.5 [facility] Comment on above: Performed By: #### C BC #### [facility] [address] [place] [address] Dr. Narciso Amaral Neutrophils/100 WBC (Bld) 58.9 % Normal 43.0-75.0 [facility] Comment on above: Performed By: #### C BC #### [facility] [address] [address] [address] Narciso Amaral Platelet mean volume (Bld) [Entitic vol] 10.4 fL Normal 9.5-13.5 [facility] Comment on above: Performed By: #### C BC #### [facility] [address] [address] [address] Narciso Amaral PLT 158 103/ul Normal 150-450 [facility] Comment on above: Performed By: #### C BC #### [facility] [address] [address] [address] Narciso Amaral RBC 3.58 106/ul Critically low 4.20-5.40 [facility] Comment on above: Performed By: #### C BC #### [facility] [address] [address] [address] Narciso Amaral WBC 5.2 103/ul Normal 4.0-11.0 [facility] Comment on above: Performed By: #### C BC #### [facility] [address] [address] [address] Narciso Amaral CULTURE URINEon 07-03-2021 CULTURE URINE Culture Observations: No growth Normal [facility] Comment on above: Performed By: #### U RCX #### [facility] [address] [place] [address] Dr. Narciso Amaral GLYCOHEMOGLOBIN A1Con 2021 ADA RECOMMENDATION ADA THERAPEUTIC TARGET 6.0 - 7.0 ACTION SUGGESTED > 7.0 Normal [facility] Comment on above: Performed By: #### N BOX #### [facility] [address] [place] [address] Dr. Narciso Amaral Glucose [Mass/Vol] 88 mg/dL Normal [facility] Comment on above: Performed By: #### N BOX #### [facility] [address] [place] [address] Dr. Narciso Amaral HbA1c (Bld) [Mass fraction] 4.7 % Normal <=6.0 [facility] Comment on above: Performed By: #### N BOX #### [facility] [address] [place] [address] Dr. Nraciso Amaral BERNADINE BOX TEST PT SEND OUTo n 07-03-2021 SENT TO REF LAB 07/03/2021 Normal [facility] Comment on above: Performed By: #### N BOX #### [facility] [address] [place] [address] Dr. Narciso Amaral TYPE AND SCREENon 07-03-2021 TYPE AND SCREEN Negative Normal [facility] Comment on above: Performed By: #### C T/NGNA #### [facility] [address] [place] [address] Dr. Narciso Amaral CBC AUTO DIFFon 06-17-2021 BASO # 0.0 103/ul Normal 0.0-0.1 [facility] Comment on above: Performed By: #### N BOX #### [facility] [address] [place] [address] Dr. Narciso Amaral Basophils/100 WBC (Bld) 0.4 % Normal 0.2-2.0 [facility] Comment on above: Performed By: #### N BOX #### [facility] [address] [place] [address] Dr. Narciso Amaral EO # 0.0 103/ul Normal 0.0-0.7 [facility] Comment on above: Performed By: #### N BOX #### [facility] [address] [place] [address] Dr. Narciso Amaral Eosinophils/100 WBC (Bld) 0.0 % Critically low 0.9-7.0 [facility] Comment on above: Performed By: #### N BOX #### [facility] [address] [place] [address] Dr. Narciso Amaral Erythrocyte distribution width (RBC) [Ratio] 11.6 % Normal 11.0-15.0 [facility] Comment on above: Performed By: #### N BOX #### [facility] [address] [place] [address] Dr. Narciso Amaral Hematocrit (Bld) [Volume fraction] 42.6 % Normal 36.0-48.0 [facility] Comment on above: Performed By: #### N BOX #### [facility] [address] [address] [address] Narciso Amaral Hemoglobin (Bld) [Mass/Vol] 14.9 g/dL Normal 12.0-16.0 [facility] Comment on above: Performed By: #### N BOX #### [facility] [address] [place] [address] Dr. Narciso Amaral IG # 0.02 10e3/ul Normal 0.00-0.03 [facility] Comment on above: Performed By: #### N BOX #### [facility] [address] [place] [address] Dr. Narciso Amaral IG % 0.3 % Normal 0.0-0.5 [facility] Comment on above: Performed By: #### N BOX #### [facility] [address] [place] [address] Dr. Narciso Amaral LYMPH # 2.1 103/ul Normal 1.2-3.8 [facility] Comment on above: Performed By: #### N BOX #### [facility] [address] [place] [address] Dr. Narciso Amaral Lymphocytes/100 WBC (Bld) 28.8 % Normal 20.5-60.0 [facility] Comment on above: Performed By: #### N BOX #### [facility] [address] [place] [address] Dr. Narciso Amaral MANUAL DIFF REQ NO Normal [facility] Comment on above: Performed By: #### N BOX #### [facility] [address] [place] [address] Dr. Narciso Amaral MCH (RBC) [Entitic mass] 31.6 pg Normal 26.7-34.0 [facility] Comment on above: Performed By: #### N BOX #### [facility] [address] [place] [address] Dr. Narciso Amaral MCHC (RBC) [Mass/Vol] 35.0 g/dL Normal 29.9-35.2 [facility] Comment on above: Performed By: #### N BOX #### [facility] [address] [address] [address] Narciso Amaral MCV (RBC) [Entitic vol] 90.4 fL Normal 81.0-99.0 [facility] Comment on above: Performed By: #### N BOX #### [facility] [address] [place] [address] Dr. Narciso Amaral MONO # 0.3 103/ul Normal 0.3-0.8 [facility] Comment on above: Performed By: #### N BOX #### [facility] [address] [place] [address] Dr. Narciso Amaral Monocytes/100 WBC (Bld) 4.6 % Normal 1.7-12.0 [facility] Comment on above: Performed By: #### N BOX #### [facility] [address] [place] [address] Dr. Narciso Amaral NEUT # 4.7 103/ul Normal 1.4-6.5 [facility] Comment on above: Performed By: #### N BOX #### [facility] [address] [place] [address] Dr. Narciso Amaral Neutrophils/100 WBC (Bld) 65.9 % Normal 43.0-75.0 [facility] Comment on above: Performed By: #### N BOX #### [facility] [address] [place] [address] Dr. Narciso Amaral Platelet mean volume (Bld) [Entitic vol] 9.7 fL Normal 9.5-13.5 [facility] Comment on above: Performed By: #### N BOX #### [facility] [address] [place] [address] Dr. Narciso Amaral PLT 199 103/ul Normal 150-450 [facility] Comment on above: Performed By: #### N BOX #### [facility] [address] [place] [address] Dr. Narciso Amaral RBC 4.71 106/ul Normal 4.20-5.40 [facility] Comment on above: Performed By: #### N BOX #### [facility] [address] [place] [address] Dr. Narciso Amaral WBC 7.1 103/ul Normal 4.0-11.0 [facility] Comment on above: Performed By: #### N BOX #### [facility] [address] [place] [address] Dr. Narciso Amaral ER URINE PROFILEon 2 Bilirubin Ql (U) Negative Normal NEGATIVE [facility] Comment on above: Performed By: #### E RUR #### [facility] [address] [place] [address] Dr. Narciso Amaral Clarity (U) SL CLOUDY Abnormal CLEAR [facility] Comment on above: Performed By: #### E RUR #### [facility] [address] [place] [address] Dr. Narciso Amaral Color (U) YELLOW Normal YELLOW [facility] Comment on above: Performed By: #### E RUR #### [facility] [address] [place] [address] Dr. Narciso MCCLELLAN A micrscopic examination will be performed if indicated. Normal [facility] Comment on above: Performed By: #### E RUR #### [facility] [address] [place] [address] Dr. Narciso Amaral Glucose Ql (U) Negative Normal NEGATIVE [facility] Comment on above: Performed By: #### E RUR #### [facility] [address] [place] [address] Dr. Narciso Amaral Hemoglobin Ql (U) Negative Normal NEGATIVE [facility] Comment on above: Performed By: #### E RUR #### [facility] [address] [place] [address] Dr. Narciso Amaral Ketones Ql (U) >=80 Abnormal NEGATIVE [facility] Comment on above: Performed By: #### E RUR #### [facility] [address] [place] [address] Dr. Narciso Amaral LEUKOCYTES Negative Normal NEGATIVE [facility] Comment on above: Performed By: #### E RUR #### [facility] [address] [place] [address] Dr. Narciso Amaral Nitrite Ql (U) Negative Normal NEGATIVE [facility] Comment on above: Performed By: #### E RUR #### [facility] [address] [place] [address] Dr. Narciso Amaral pH (U) 6.0 [pH] Normal 5-9 [facility] Comment on above: Performed By: #### E RUR #### [facility] [address] [place] [address] Dr. Narciso Amaral SPEC GRAVITY >=1.030 Abnormal 1.005-<=1.025 [facility] Comment on above: Performed By: #### E RUR #### [facility] [address] [place] [address] Dr. Narciso Amaral UA PROTEIN TRACE Normal NEGATIVE/ TRACE [facility] Comment on above: Performed By: #### E RUR #### [facility] [address] [place] [address] Dr. Narciso Amaral UR MICRO IND NOT INDICATED Normal [facility] Comment on above: Performed By: #### E RUR #### [facility] [address] [place] [address] Dr. Narciso Amaral Urobilinogen Qn (U) 1.0 {Maggy'U}/dL Normal 0.2 - 1. 0 [facility] Comment on above: Performed By: #### E RUR #### [facility] [address] [place] [address] Dr. Narciso Amaral PROF 14(COMP METB)on 022 Albumin [Mass/Vol] 4.6 g/dL Normal 3.5-5.[address] [facility] Comment on above: Performed By: #### C BC #### [facility] [address] [place] [address] Dr. Narciso Amaral Albumin/Globulin [Mass ratio] 1.0 {ratio} Normal [facility] Comment on above: Performed By: #### C BC #### [facility] [address] [place] [address] Dr. Narciso Amaral ALP [Catalytic activity/Vol] 54 U/L Normal 38-126 [facility] Comment on above: Performed By: #### C BC #### [facility] [address] [address] [address] Narciso Amaral ALT [Catalytic activity/Vol] 12 U/L Normal 9-52 [facility] Comment on above: Performed By: #### C BC #### [facility] [address] [address] [address] Narciso Amaral Anion gap [Moles/Vol] 14.8 mmol/L Normal Th [facility] Comment on above: Performed By: #### C BC #### [facility] [address] [address] [address] Narciso Amaral AST [Catalytic activity/Vol] 11 U/L Critically low 14-36 [facility] Comment on above: Performed By: #### C BC #### [facility] [address] [address] [address] Narciso Amaral Bilirubin [Mass/Vol] 0.9 mg/dL Normal 0.2-1.3 [facility] Comment on above: Performed By: #### C BC #### [facility] [address] [place] [address] Dr. Narciso Amaral Calcium [Mass/Vol] 9.6 mg/dL Normal 8.4-10.[address] [facility] Comment on above: Performed By: #### C BC #### [facility] [address] [address] [address] Narciso Amaral Chloride [Moles/Vol] 98 mmol/L Normal 98-107 [facility] Comment on above: Performed By: #### C BC #### [facility] [address] [address] [address] Narciso Amaral CO2 [Moles/Vol] 27.3 mmol/L Normal 22.0-30.0 The [facility] Comment on above: Performed By: #### C BC #### [facility] [address] [address] [address] Narciso Amaral Creatinine [Mass/Vol] 0.55 mg/dL Normal 0.52-1.04 [facility] Comment on above: Performed By: #### C BC #### [facility] [address] [place] [address] Dr. Narciso Amaral EGFR-AF SWEDISH >60 Normal >=60 [facility] Comment on above: Performed By: #### C BC #### [facility] [address] [place] [address] Dr. Narciso Amaral EGFR-NON AF SWEDISH >60 Normal >=60 [facility] Comment on above: Performed By: #### C BC #### [facility] [address] [address] [address] Narciso Amaral Globulin (S) [Mass/Vol] 4.7 g/dL Normal [facility] Comment on above: Performed By: #### C BC #### [facility] [address] [place] [address] Dr. Narciso Amaral Glucose [Mass/Vol] 87 mg/dL Normal 74-[address] [facility] Comment on above: Performed By: #### C BC #### [facility] [address] [place] [address] Dr. Narciso Amaral Potassium [Moles/Vol] 3.1 mmol/L Critically low 3.4-5.0 [facility] Comment on above: Performed By: #### C BC #### [facility] [address] [place] [address] Dr. Narciso Amaral Protein [Mass/Vol] 9.3 g/dL Critically high 6.1-8.2 [facility] Comment on above: Performed By: #### C BC #### [facility] [address] [place] [address] Dr. Narciso Amaral Sodium [Moles/Vol] 137 mmol/L Normal 137-[address] [facility] Comment on above: Performed By: #### C BC #### [facility] [address] [place] [address] Dr. Narciso Amaral Urea nitrogen [Mass/Vol] 11.0 mg/dL Normal 7.0-17.0 [facility] Comment on above: Performed By: #### C BC #### [facility] [address] [place] [address] Dr. Narciso Amaral Urea nitrogen/Creatinine [Mass ratio] 20.0 mg/mg Normal [facility] Comment on above: Performed By: #### C #### [facility] [address] [place] [address] Dr. Narciso Amaral US PREG TVon 06-17-2021 [...] by: KRISTINA ESTRADA Date: 2021-06-17 17:29 Normal [facility] Vital Signs Date Time Vital Sign Value Performing Clinician Facility 05-31-2023 08:51-0500 Body mass index (BMI) [Ratio] 22.85 kg/m2 Lydia DOLAN Work Phone: [facility] 05-31-2023 08:51-0500 Body weight 60.38 kg Lydia DOLAN Work Phone: [facility] 05-31-2023 08:51-0500 Diastolic blood pressure 66 mm[Hg] Lydia DOLAN Work Phone: [facility] 05-31-2023 08:51-0500 Systolic blood pressure 102 mm[Hg] Lydia DOLAN Work Phone: [facility] 01-03-2023 20:48-0400 Diastolic blood pressure 66 mm[Hg] Kemal Sharma [facility] 01-03-2023 20:48-0400 Heart rate 68 /min Kemal Sharma [facility] 01-03-2023 20:48-0400 Respiratory rate 18 /min Kemal Zachary [facility] 01-03-2023 20:48-0400 SaO2% (BldA) [Mass fraction] 99 % Kemal Zachary [facility] 01-03-2023 20:48-0400 Systolic blood pressure 110 mm[Hg] Kemal Zachary [facility] 01-03-2023 19:55-0400 Hourly Rounding Kemal Zachary [facility] 01-03-2023 19:53-0400 Diastolic blood pressure 71 mm[Hg] Kemal Zachary [facility] 01-03-2023 19:53-0400 Heart rate 70 /min Kemal Zacahry [facility] 01-03-2023 19:53-0400 Respiratory rate 18 /min Kemal Zachary [facility] 01-03-2023 19:53-0400 SaO2% (BldA) [Mass fraction] 99 % Kemal Zachary [facility] 01-03-2023 19:53-0400 Systolic blood pressure 106 mm[Hg] Kemal Zachary [facility] 01-03-2023 18:55-0400 Diastolic blood pressure 74 mm[Hg] Kemal Zachary [facility] 01-03-2023 18:55-0400 Heart rate 74 /min Kemal Zachary [facility] 01-03-2023 18:55-0400 Hourly Rounding Kemal Zachary [facility] 01-03-2023 18:55-0400 Respiratory rate 16 /min Kemal Zachary [facility] 01-03-2023 18:55-0400 SaO2% (BldA) [Mass fraction] 99 % Kemal Sharma [facility] 01-03-2023 18:55-0400 Systolic blood pressure 108 mm[Hg] Kemal Sharma [facility] 01-03-2023 17:55-0400 Hourly Rounding Kemal Sharma [facility] 01-03-2023 17:55-0400 Promise to Return Kemal Sharma [facility] 01-03-2023 16:55-0400 Body temperature 98.06 [degF] Kemal Sharma [facility] 08-25-2021 20:06-0400 Body weight 51.[address] TONI WATKINS [facility] Comment on above: Performed By: #### CBC #### [facility] [address] [place] [address] Dr. Narciso Amaral Encounters Encounter Date Encounter Type Care Provider Facility Start: 07-05-2023 End: 07-05-2023 ambulatory LYDIA GALLO Not Available Start: 06-17-2023 End: 06-17-2023 ambulatory TONI TRES Not Available Start: 05-31-2023 End: 05-31-2023 ambulatory LYDIA GALLO Not Available Start: 05-31-2023 End: 05-31-2023 flow sheet Lydia DOLAN Work Phone: [facility] Comment on above: Third trimester preg jordana Start: 05-06-2023 End: 05-06-2023 ambulatory TONI TRES Not Available Start: 04-28-2023 End: 04-29-[facility] Start: 04-28-2023 End: 04-28-2023 Subsequent hospital visit by physician [facility] Start: 04-12-2023 End: 04-12-2023 ambulatory LYDIA GALLO Not Available Start: 03-08-2023 End: 03-08-2023 ambulatory TONI TRES Not Available Start: 01-03-2023 End: 01-03-2023 Emergency department patient visit Kemal Sharma Facility:[facility] Start: 01-03-2023 End: 01-03-2023 Emergency department patient visit Kemal Sharma [facility] Start: 01-21-[address] TNOI WATKINS Facility :[facility] Start: 01-14-[address] [...] OB [address] [place] [address] Toni Watkins, [address] [place] [address] [facility] Start: 05-31-2023 End: 05-31-2023 Patient encounter procedure 05/31/2023 12:30 PM EST Routine [facility] [address] [place] [address] [facility] Start: 05-04-2023 End: 05-04-2023 Patient encounter procedure 05/04/2023 1:30 PM EST [facility] [address] [place] [id number] [facility] Start: 11-24-2022 Influenza vaccination Flu vaccine (# 1) [facility] Start: 12-25-2021 Influenza vaccination Flu vaccine (# 1) [facility] Start: 2017 Screening for malign ant neoplasm of cervix Pap smear [facility] Start: 08-01-2015 DTaP/Tdap/Td vaccine (1 - Tdap) DTaP/Tdap/Td vaccine (1 - Tdap) [facility] Start: 2014 Hepatitis C screening Hepatitis C sc reen [facility] Start: 08-01-2011 HIV screening HIV screen [facility] Start: 2008 Depression Screen Depression Screen [facility] Start: 08-01-2007 HPV vaccine (1 - 2-d ose series) HPV vaccine (1 - 2-dose series) [facility] Start: 2001 COVID-19 Vaccine (1) COVID-19 Vaccin e (1) [facility] Start: 1997 Varicella vaccine (1 of 2 - 2-dose childhood series) Varicella vaccine (1 of 2 - 2-dose childhood series) [facility] Start: 01-30-1997 COVID-19 Vaccine (#1) COVID-19 Vacci ne (#1) [facility] Start: 1996 Hepatitis B vaccine (1 of 3 - 3-dose series) Hepatitis B vaccine (1 of 3 - 3-dose series) [facility] Payers Date Payer Category Payer Unknown 1996 Unknown [id number] 2.16.84 [id number] 1996 Unknown [id number] 2.16.84 0.1.017194.3.579.2.593 1996 Unknown [id number] 2.16.84 0.1.919350.3.579.2.593 1996 Unknown [id number] 2.16.84 0.1.079396.3.579.2.593 1996 Unknown [id number] 2.16.84 0.1.526546.3.579.2.593 1996 Unknown [id number] 2.16.84 0.1.361320.3.579.2.593 1996 Unknown [id number] 2.16.84 0.1.709737.3.579.2.593 1996 Unknown [id number] 2.16.84 0.1.422030.3.579.2.593 1996 Unknown [id number] 2.16.84 0.1.285703.3.579.2.593 1996 Unknown [id number] 2.16.84 0.1.643125.3.579.2.593 1996 Unknown [id number] 2.16.84 0.1.152119.3.579.2.593 1996 Unknown [id number] 2.16.84 0.1.254732.3.579.2.593 1996 Unknown [id number] 2.16.84 0.1.882539.3.579.2.593 1996 Unknown [id number] 2.16.84 0.1.812325.3.579.2.593 1996 Unknown [id number] 2.16.84 0.1.265613.3.579.2.593 1996 Unknown [id number] 2.16.84 0.1.929816.3.579.2.593 1996 Unknown [id number] 2.16.84 0.1.368711.3.579.2.593 1996 Unknown [id number] 2.16.8 40.1.345737.3.579.2.727 1996 Unknown [id number] 2.16.8 40.1.762164.3.579.2.174 1996 Unknown [id number] 2.16.84 0.1.950697.3.579.2.1259 1996 Unknown [id number] 2.16.84 0.1.608825.3.579.2.1259 1996 Unknown [id number] 2.16.84 0.1.519507.3.579.2.1259 1996 Unknown [id number] 2.16.84 0.1.773728.3.579.2.1259 1996 Unknown [id number] 2.16.840 .1.777434.3.579.2.9 1996 Unknown [id number] 2.16.840. 1.113475.3.579.2.1259 1959 Self-pay [id number] Self-pay 1959 Unknown [id number] [id number] Unknown [id number] 2.16.84 0.1.432057.3.579.2.593 Social History Date Type Detail Facility Tobacco smoking status DEIS Tobacco smoking consumption unknown [employer] Work Phone: Start: 1995 Sex Assigned At Not on file [employer] Work Phone: Start: 04-05-2021 End: 04-07-2023 Tobacco smoking status Never smoked tobacco (finding) [facility] Tobacco smoking status Never [facility] Start: 04-20-2023 Sex Assigned At Female [facility] Start: 04-07-2023 Tobacco use and exposure Smokeless tobacco non-user [employer] Start: 04-20-2023 Alcohol intake Lifetime non-d jay (finding) [employer] Start: 04-20-2023 History of Social function [employer] Start: 11-12-2022 [employer] NEGATED: Highlighted rowStart: NINF History of tobacco use Passive smoker [employer] Functional Status Date Assessment Result Facility 01-03-2023 Functional Status N/A [facility] History of Present illness Narrative [...] and states received a steroid while in [place] for shortened cervix. Pt to have nst [...] of: MAGDALENO Garsia documented in this encounter [facility] Discharge instructions 01-03-2023 Note Date & Type Note Facility 01-03-2023 Hospital Discharg e instructions Patient Education 01/03/2023 20:50:05 Morning Sickness, [id number] Morning Sickness Morning sickness is when you [...] Follow these instructions at home: Medicines Take ftqo-skd-tkzotqk and prescription medicines only as told by [...] provider. Document Revised: 11/25/2020 Document Reviewed: 11/04/2020 [employer] Patient Education 2022 [facility]. Follow Up Care 01/03/2023 16:18:17 With:Toni WATKINS Address: [address] [place] [address]- Business (1) When:01/06/2023 20:40:46 [facility] Evaluation + Plan note 01-03-2023 Note Date & Type Note Facility 01-03-2023 Evaluation + Plan note Extrac ida from: Title:ED Note Author:Velia Correa PA-C e:01/03/23 Nausea/vomiting in (O21.9: Vomiting of , [...] discharged home with instructions to follow with [facility] and is to return to the ED with any new or worsening symptoms. Patient voices understanding is agreeable to plan [facility] Evaluation note Note Date & Type Note Facility Evaluation note Diagnosis Third trimester state, incidental documented in this encounter [facility] Hospital course Narrative Note Date & Type Note Facility Hospital course Narrative No data available for this section [facility] Progress note Note Date & Type Note Facility Progress note No data available for this section [facility] Summary Purpose Family History No Family History Records FoundNo Family History Records FoundNo Family History Records FoundNo Family History Records Found Advance Directives No Advanced Directives Records FoundNo Advanced Directives Records FoundNo Advanced Directives Records FoundNo Advanced Directives Records Found Additional Source Comments INFORMATION SOURCE (unrecogn ized section and content) DATE CREATED AUTHOR 01/21/2022 [facility] DATE CREATED AUTHOR AUTHOR'S ORGANIZ ATION 01/07/2023 Fabian Renner [facility] DATE CREATED AUTHOR AUTHOR'S ORGANIZ ATION 04/29/2023 [facility] DATE CREATED AUTHOR AUTHOR'S ORGANIZ ATION 07/05/2023 [facility] EPIC Patient Care team informatio n (unrecognized section and content) Personnel Name: Gloria CASTELLANOS CNP Address: Address: [address] [place] [address] Dr. Blake, [facility] Reason for Visit (unrecogniz ed section [...] BE BASED ON THE PRIMARY CLINICAL RECORDS. [facility] [employer] [facility]. provides no warranty or guarantee of the accuracy or completeness of information in this document.
== END 2023-07-05 10:30 | disposition home or self-care (01) ==
LOC: US 07:38 → FBC 09:44
PROVIDERS: Visit Provider Obstetrics & Gynecology
DX: Z36.86 Encounter for antenatal screening for cervical length (principal); Z3A.35 35 weeks gestation of pregnancy
CPT/HCPCS: 76816; 76818

== ENCOUNTER 2023-07-14 08:00 | Outpatient (OUT) | payer BC, SELFPAY ==
--- NOTE | 2023-07-14 | US_ITS ---
[address] [address] Patient Name: DOMINIK FRANCO MRN: [id number] date: 1995 Sex: F Assigned Patient Location: [facility] Current Patient Location: [facility] Accession/Order Number: [id number] Exam Date: 07/14/2023 08:19 Report Date: 07/14/2023 09:51 At the request of: TONI JOSHUA Procedure: US OB cervical length EXAMINATION: US OB cervical length, US OB BPP w non-stress HISTORY: Encounter for anenatal screening for cervical length Z36.86 COMPARISON: No relevant comparison available. Technique: Ultrasound biophysical profile was performed in the radiology department FINDINGS: presentation: Cephalic presentation, longitudinal lie Amniotic fluid: 12.3 cm, normal Largest fluid pocket: 6.1 cm The cervix is short. The closed portion the cervix measures 1.1 cm in length. Moderate funneling of the internal cervical os which measures 0.9 cm. BREATHING MOVEMENTS: 2.0 GROSS BODY MOVEMENTS: 2.0 TONE: 2.0 QUALITATIVE AMNIOTIC FLUID VOLUME: 2.0 PRESENTATION: CEPHALIC HEART RATE: 127.4 bpm H.B./min AMNIOTIC FLUID VOLUME: 12.3 cm cm GESTATIONAL AGE: 36 weeks 6 days CONCLUSION: Total biophysical profile score: 8.0 US/US OB cervical length IMPRESSION: Total biophysical profile score 8/8 Short cervix. Total length of 2 cm with the closed portion measuring 1.1 cm Electronically authenticated by: GREG RODNEY Date: 07/14/2023 09:51
--- NOTE | 2023-07-14 08:14 | US_ITS ---
[address] [address] Patient Name: DOMINIK FRANCO MRN: [id number] date: 1995 Sex: F Assigned Patient Location: Current Patient Location: [facility] Accession/Order Number: [id number] Exam Date: 07/14/2023 08:15 Report Date: 07/14/2023 09:51 At the request of: TONI JOSHUA Procedure: US OB BPP w non-stress EXAMINATION: US OB cervical length, US OB BPP w non-stress HISTORY: Encounter for anenatal screening for cervical length Z36.86 COMPARISON: No relevant comparison available. Technique: Ultrasound biophysical profile was performed in the radiology department FINDINGS: presentation: Cephalic presentation, longitudinal lie Amniotic fluid: 12.3 cm, normal Largest fluid pocket: 6.1 cm The cervix is short. The closed portion the cervix measures 1.1 cm in length. Moderate funneling of the internal cervical os which measures 0.9 cm. BREATHING MOVEMENTS: 2.0 GROSS BODY MOVEMENTS: 2.0 TONE: 2.0 QUALITATIVE AMNIOTIC FLUID VOLUME: 2.0 PRESENTATION: CEPHALIC HEART RATE: 127.4 bpm H.B./min AMNIOTIC FLUID VOLUME: 12.3 cm cm GESTATIONAL AGE: 36 weeks 6 days CONCLUSION: Total biophysical profile score: 8.0 US/US OB BPP w non-stress IMPRESSION: Total biophysical profile score 8/8 Short cervix. Total length of 2 cm with the closed portion measuring 1.1 cm Electronically authenticated by: GREG RODNEY Date: 07/14/2023 09:51
--- OUTSIDE RECORDS SUMMARY | 2023-07-14 08:20 | XMS_ITS | CCD ---
Author Organization [facility] Care Team Providers Care Transmission Rebuilder Name Role Phone Unavailable Primary Care Provider Unavailabl e TRES, DR MUÑOZ Consulting Unavailable TRES, [...] MUÑOZ Consulting Unavailable REQUEST, DR SENA LISTED Primary Care Unavaila ble TRES, DR MUÑOZ Consulting Unavailable REQUEST, NONE LISTED Primary Care Unavaila ble TRES, DR MUÑOZ Attending Unavailable TRES, DR MUÑOZ Admitting Unavailable ZIEBER, DR KRISTINA Kelly Consulting Unavailable REQUEST, DR NONE LISTED Primary Care Unavaila ble TRES, DR MUÑOZ Attending Unavailable BALFOUR, DR GREG Smith Consulting Unavailable TRES, DR MUÑOZ Admitting Unavailable TRES, DR MUÑOZ Consulting Unavailable TRES, DR MUÑOZ Consulting Unavailable TRES, DR MUÑOZ Attending Unavailable MISC, DR RODRÍGUEZ Primary Care Unavailable TRES, DR MUÑOZ Admitting Unavailable TRES, DR MUÑOZ Consulting Unavailable TRES, DR MUÑZO Attending Unavailable REQUEST, DR NONE LISTED Primary [...] ZIEBER, DR KRISTINA Kelly Consulting Unavailable PATEL, WINCHA Consulting Unavailable TERS, DR MUÑOZ Attending Unavailable [...] Provider Unavailjarett e TONI WATKINS Attending Unavailable LYDIA GALLO Attending Unavailable TRESTONI CHRISTINA Attending Unavailable LYDIA GALLO Attending Unavailable TRESTONI CHRISTINA Attending Unavailable LYDIA GALLO Attending Unavailable Allergies Allergy Classification Reported Allergen(s) Allergy Type Date of Onset Reaction(s) Facility (2 sources) Amoxicillin; Translations: [amoxicillin] Drug Allergy 2 [facility] Repository (3 sources) Amoxicillin; Translations: [amoxicillin] Drug Allergy 3 rash [facility] [place] (1 source) Penicillins Propensity to adverse reactions to drug 3 Rash [facility] (2 sources) Penicillins Drug Allergy [...] hours., # 16 tab(s), Refills(s) 1, Pharmacy: [id number], 168, cm, 04/09/20 15:23:00 EST, Height/Length Dosing, 50.7, kg, 04/09/20 15:23:00 EST, Weight Dosing Start Date: 04/09/20 Status: Ordered Zofran ODT 4 mg Tab-Dis (1 source) Start: 06-09-2021 take 1 tablet by mouth every six hours as needed for nausea Zofran ODT 4 mg Tab-Dis 4 mg = 1 tab(s), Oral, q6hr, PRN Nausea/Vomiting, # 12 tab(s), Refills(s) 0, Pharmacy: [facility] [place] [address], 165.1, cm, 06/09/21 2:43:00 EST, Height/Length Dosing, [...] applicable or unspecified; Translations: [MAT CARE OTH ID FTL GRTH 3RD TM UNS] Onset: 12-31-2021 [...] Differentialon 04-28-2023 Basophils (Bld) [#/Vol] 0.03 10*3/uL [facility] Basophils/100 WBC (Bld) 1 % 0 - 2 % [facility] Eosinophils (Bld) [#/Vol] 0.04 10*3/uL [facility] Eosinophils/100 WBC (Bld) 1 % 0 - 5 % [facility] Erythrocyte distribution width (RBC) [Ratio] 11.8 % Low 12.1 - 15.2 % [facility] Hematocrit (Bld) [Volume fraction] 35.4 % Low 36.0 - 46.0 % [facility] Hemoglobin (Bld) [Mass/Vol] 11.9 g/dL Low 12.0 - 16.0 g/dL [facility] Immature granulocytes (Bld) [#/Vol] 0.04 10*3/uL [facility] Immature granulocytes/100 WBC (Bld) 1 % 0 - 5 % [facility] Interpretation and review of laboratory results Abnormal [facility] Lymphocytes/100 WBC (Bld) 24 % 15 - 40 % [facility] Lymphocytes/100 WBC (Bld) 1.53 % [facility] MCH (RBC) [Entitic mass] 32.9 pg 26.0 - 34.0 pg [facility] MCHC (RBC) [Mass/Vol] 33.6 g/dL 31.0 - 37.0 g/dL [facility] MCV (RBC) [Entitic vol] 97.8 fL 80.0 - 100.0 fL [facility] Monocytes/100 WBC (Bld) 6 % 4 - 8 % [facility] Monocytes/100 WBC (Bld) 0.41 % [facility] Neutrophils/100 WBC (Bld) 67 % 47 - 75 % [facility] Platelet mean volume (Bld) [Entitic vol] 9.5 fL 6.0 - 12.0 fL [facility] Platelets (Bld) [#/Vol] 155 10*3/uL [facility] RBC (Bld) [#/Vol] 3.62 10*6/uL Low 4.00 - 5.2 0 m/uL [facility] Segmented neutrophils/100 WBC (Bld) 4.37 % [facility] WBC other (Bld) [#/Vol] 6.4 [facility] CBC with Diffon 04-28-2023 Abs. Basophil 0.03 k/uL Normal 0.00-0.20 [facility] Comment on above: Performed By: #### C DP, GLUSC #### [facility] [address] [place] [address] Safety Scientist: Greg Castillo MD Abs.Imm.Granulocyte 0.04 k/uL Normal 0.00-0.30 [facility] Comment on above: Performed By: #### C DP, GLUSC #### [facility] [address] [place] [address] Safety Scientist: Greg Castillo MD Abs.Neutrophil (Seg) 4.37 k/uL Normal 2.5-7.0 [facility] Comment on above: Performed By: #### C DP, GLUSC #### [facility] [address] [place] [address] Safety Scientist: Greg Castillo MD Basophils/100 WBC (Bld) 1 % Normal 0-2 [facility] Comment on above: Performed By: #### C DP, GLUSC #### [facility] [address] [place] [address] Safety Scientist: Greg Castillo MD Eosinophils (Bld) [#/Vol] 0.04 10*3/uL Normal 0.00-0.40 [facility] Comment on above: Performed By: #### C DP, GLUSC #### [facility] [address] [place] [address] Safety Scientist: Greg Castillo MD Eosinophils/100 WBC (Bld) 1 % Normal 0-5 [facility] Comment on above: Performed By: #### C DP, GLUSC #### [facility] [address] [place] [phone] Safety Scientist: Greg Castillo MD Erythrocyte distribution width (RBC) [Ratio] 11.8 % Low 12.1-15.2 [facility] Comment on above: Performed By: #### C DP, GLUSC #### [facility] [address] [place] [phone] Safety Scientist: Greg Castillo MD Hematocrit (Bld) [Volume fraction] 35.4 % Low 36.0-46.0 [facility] Comment on above: Performed By: #### C DP, GLUSC #### [facility] [address] [place] [phone] Safety Scientist: Greg Castillo MD Hemoglobin (Bld) [Mass/Vol] 11.9 g/dL Low 12.0-16.0 [facility] Comment on above: Performed By: #### C DP, GLUSC #### [facility] [address] [place] [phone] Safety Scientist: Greg Castillo MD Immature granulocytes/100 WBC (Bld) 1 % Normal 0-5 [facility] Comment on above: Performed By: #### C DP, GLUSC #### [facility] [address] [place] [address] Safety Scientist: Greg Castillo MD Lymphocytes (Bld) [#/Vol] 1.53 10*3/uL Normal 1.00-4.80 [facility] Comment on above: Performed By: #### C DP, GLUSC #### [facility] [address] [place] [address] Safety Scientist: Greg Castillo MD Lymphocytes/100 WBC (Bld) 24 % Normal 15-40 [facility] Comment on above: Performed By: #### C DP, GLUSC #### [facility] [address] [place] [address] Safety Scientist: Greg Castillo MD MCH (RBC) [Entitic mass] 32.9 pg Normal 26.0-34.0 [facility] Comment on above: Performed By: #### C DP, GLUSC #### [facility] [address] [place] [phone] Safety Scientist: Greg Castillo MD MCHC (RBC) [Mass/Vol] 33.6 g/dL Normal 31.0-37.0 [facility] Comment on above: Performed By: #### C DP, GLUSC #### [facility] [address] [place] [address] Safety Scientist: Greg Castillo MD MCV (RBC) [Entitic vol] 97.8 fL Normal 80.0-100.0 [facility] Comment on above: Performed By: #### C DP, GLUSC #### [facility] [address] [place] [phone] Safety Scientist: Greg Castillo MD Monocytes (Bld) [#/Vol] 0.41 10*3/uL Normal 0.00-1.00 [facility] Comment on above: Performed By: #### C DP, GLUSC #### [facility] [address] [place] [address] Safety Scientist: Greg Castillo MD Monocytes/100 WBC (Bld) 6 % Normal 4-8 [facility] Comment on above: Performed By: #### C DP, GLUSC #### [facility] [address] [place] [phone] Safety Scientist: Greg Castillo MD Neutrophil (Seg) 67 % Normal 47-75 [facility] Comment on above: Performed By: #### C DP, GLUSC #### [facility] [address] [place], [place] [phone] Safety Scientist: Greg Castillo MD Platelet mean volume (Bld) [Entitic vol] 9.5 fL Normal 6.0-12.0 [facility] Comment on above: Performed By: #### C DP, GLUSC #### [facility] [address] [place], [place] [phone] Safety Scientist: Greg Castillo MD Platelets (Bld) [#/Vol] 155 10*3/uL Normal 140-450 [facility] Comment on above: Performed By: #### C DP, GLUSC #### [facility] [address] [place], [place] [phone] Safety Scientist: Greg Castillo MD RBC (Bld) [#/Vol] 3.62 10*6/uL Low 4.00-5.20 [facility] Comment on above: Performed By: #### C DP, GLUSC #### [facility] [address] [place], [place] [phone] Safety Scientist: Greg Castillo MD WBC (Bld) [#/Vol] 6.4 10*3/uL Normal 3.5-11.0 [facility] Comment on above: Performed By: #### C DP, GLUSC #### [facility] [address] [place], [place] [phone] Safety Scientist: Greg Castillo MD Glucose David Scr 50gon 2023 Glucose [Mass/Vol] 108 mg/dL Normal 70-135 [facility] Comment on above: Performed By: #### C DP, GLUSC #### [facility] [address] [place] [address] Safety Scientist: Greg Castillo MD Glu Administered via Glucola Normal [facility] Comment on above: Performed By: #### C DP, GLUSC #### [facility] [address] [place] [address] Safety Scientist: Greg Castillo MD Glucose tolerance, 1 houron 04-28-2023 GLU ADMN Glucola [facility] Glucose 1 Hr post 50 g glucose PO [Mass/Vol] 108 mg/dL 70 - 135 mg/dL [facility] Discharge Instructionson Discharge Instructions [id number]#1.00CD:127 Normal [facility] Auto Diffon 01-03-2023 Basophils/100 WBC (Bld) 0.5 % Normal 0.0-2.0 [facility] Comment on above: Order Comment: Order Added by Discern Expert. Performed By: #### 2 [id number], [id number], [id number], [id number] #### [facility] [address] [place] [address] Basophils/Leukocytes Auto (Bld) [Pure # fraction] 0.0 E9/L Normal 0.0-0.2 [facility] Comment on above: Order Comment: Order Added by Discern Expert. Performed By: #### 2 041010, 5792271, [id number], [id number] #### [facility] [address] [place] [address] Eosinophils/100 WBC (Bld) 0.3 % Normal 0.0-8.0 [facility] Comment on above: Order Comment: Order Added by Discern Expert. Performed By: #### 2 239259, 0103471, [id number], [id number] #### [facility] [address] [place] [address] Eosinophils/Leukocyte s Auto (Bld) [Pure # fraction] 0.0 E9/L Normal 0.0-0.5 [facility] Comment on above: Order Comment: Order Added by Discern Expert. Performed By: #### 2 642784, 7387248, 58987238, [id number] #### [facility] [address] [place] [address] Lymphocytes/100 WBC (Bld) 29.1 % Normal 14.0-50.0 [facility] Comment on above: Order Comment: Order Added by Discern Expert. Performed By: #### 2 806054, 0968407, [id number], 4453233 #### [facility] [address] [place] [address] Lymphocytes/Leukocyte s Auto (Bld) [Pure # fraction] 1.7 E9/L Normal 1.0-4.0 [facility] Comment on above: Order Comment: Order Added by Kya Expert. Performed By: #### 2 381331, 3554399, 92959763, 4915113 #### [facility] [address] [place] [address] Monocytes/100 WBC (Bld) 5.1 % Normal 4.0-14.0 [facility] Comment on above: Order Comment: Order Added by Kya Expert. Performed By: #### 2 490831, 4415563, 78240026, 3997311 #### [facility] [address] [place] [address] Monocytes/Leukocytes Auto (Bld) [Pure # fraction] 0.3 E9/L Normal 0.2-1.0 [facility] Comment on above: Order Comment: Order Added by Discern Expert. Performed By: #### 2 297064, 3355952, 15380579, 9351963 #### [facility] [address] [place] [address] Neutrophils/100 WBC (Bld) 65.0 % Normal 36.0-75.0 [facility] Comment on above: Order Comment: Order Added by Kya Expert. Performed By: #### 2 291577, 7549809, 71581031, 5707090 #### [facility] [address] [place] [address] Neutrophils/Leukocyte s Auto (Bld) [Pure # fraction] 3.8 E9/L Normal 2.0-7.5 [facility] Comment on above: Order Comment: Order Added by Discern Expert. Performed By: #### 2 298215, 4750300, 37446021, 9473140 #### [facility] [address] [place] [address] BMPon 01-03-2023 Creatinine [Mass/Vol] 0.5 mg/dL Normal 0.5-1.3 [facility] Comment on above: Performed By: #### 2 361708, 1734818, 45533810, 3166051 #### [facility] [address] [place] [address] Urea nitrogen [Mass/Vol] 8 mg/dL Normal 5-21 [facility] Comment on above: Performed By: #### 2 848754, 3297387, 89629733, 3649300 #### [facility] [address] [place] [address] Urea nitrogen/Creatinine [Mass ratio] 16 No Units Normal 10-20 [facility] Comment on above: Performed By: #### 2 438943, 8330385, 40679838, 0188547 #### [facility] [address] [place] [address] Anion gap [Moles/Vol] 7 mmol/L Normal 6-16 [facility] Comment on above: Performed By: #### 2 908231, 3169836, 51694206, 7223210 #### [facility] [address] [place] [address] Calcium [Mass/Vol] 9.3 mg/dL Normal 8.9-11.1 [facility] Comment on above: Performed By: #### 2 533396, 9371215, 42002770, 0984189 #### [facility] [address] [place] [address] Chloride [Moles/Vol] 105 mmol/L Normal 101-111 [facility] Comment on above: Performed By: #### 2 220208, 6405785, 74969752, 7526527 #### [facility] [address] [place] [address] CO2 [Moles/Vol] 24 mmol/L Normal 21-31 [facility] Comment on above: Performed By: #### 2 307097, 4857198, 37550170, 6667683 #### [facility] [address] [place] [address] Glucose [Mass/Vol] 108 mg/dL Normal 55-199 [facility] Comment on above: Result Comment: If t his glucose result represents a fasting glucose, interpretation should refer to the following reference range: 55-99 mg/dL Performed By: #### 2 347162, 8441952, 32194959, 6847241 #### [facility] [address] [place] [address] Potassium [Moles/Vol] 3.4 mmol/L Low 3.5-5.3 [facility] Comment on above: Performed By: #### 2 588832, 3269919, 37626110, 0017893 #### [facility] [address] [place] [address] Sodium [Moles/Vol] 133 mmol/L Low 135-145 [facility] Comment on above: Performed By: #### 2 735457, 9786042, 78036242, 5714020 #### [facility] [address] [place] [address] CBC w/ Auto Diffon 3 Erythrocyte distribution width (RBC) [Ratio] 12.5 % Normal 10.9-14.2 [facility] Comment on above: Performed By: #### 2 601555, 2221458, 71326917, 1449045 #### [facility] [address] [place] [address] Hematocrit (Bld) [Volume fraction] 39.8 % Normal 34.0-46.0 [facility] Comment on above: Performed By: #### 2 777127, 4231559, 62731934, 2571568 #### [facility] [address] [place] [address] Hemoglobin (Bld) [Mass/Vol] 14.2 g/dL Normal 12.0-16.0 [facility] Comment on above: Performed By: #### 2 681882, 9088132, 00082394, 0206174 #### [facility] [address] [place] [address] MCH (RBC) [Entitic mass] 31.7 pg Normal 27.0-34.0 [facility] Comment on above: Performed By: #### 2 440918, 9182109, 73589388, 2002000 #### [facility] [address] [place] [address] MCHC (RBC) [Mass/Vol] 35.6 g/dL Normal 31.4-36.0 [facility] Comment on above: Performed By: #### 2 051348, 7526861, 47157153, 2209083 #### [facility] [address] [place] [address] MCV (RBC) [Entitic vol] 89.0 fL Normal 80.0-100.0 [facility] Comment on above: Performed By: #### 2 500790, 0468676, 43529121, 9487487 #### [facility] [address] [place] [address] Platelet mean volume (Bld) [Entitic vol] 7.6 fL Normal 6.4-10.8 [facility] Comment on above: Performed By: #### 2 868839, 9366679, 31440730, 5377288 #### [facility] [address] [place] [address] Platelets (Bld) [#/Vol] 170.0 E9/L Normal 150.0-500.0 [facility] Comment on above: Performed By: #### 2 181487, 1553773, 14328760, 6031981 #### [facility] [address] [place] [address] RBC (Bld) [#/Vol] 4.5 E12/L Normal 4.3-5.9 [facility] Comment on above: Performed By: #### 2 052233, 9432031, 42368235, 5740379 #### [facility] [address] [place] [address] WBC corrected for nucl RBC Auto (Bld) [#/Vol] 5.8 E9/L Normal 4.0-11.0 [facility] Comment on above: Performed By: #### 2 217139, 3861670, 01369391, 4668780 #### [facility] [address] [place] [address] CHEMISTRYOrdered By: SYSTEM SYSTEM on 01-03-2023 Anion gap [Moles/Vol] 7 mmol/L Normal 6 - 16 mEq/L [facility] Remisol Calcium [Mass/Vol] 9.3 mg/dL Normal 8.9 - 11. 1 mg/dL [facility] Chloride [Moles/Vol] 105 mmol/L Normal 101 - 1 11 mmol/L [facility] CO2 [Moles/Vol] 24 mmol/L Normal 21 - 31 mmol/L [facility] Creatinine [Mass/Vol] 0.5 mg/dL Normal 0.5 - 1.3 mg/dL [facility] [place] Remisol GFR/1.73 sq M.predicted among non-blacks MDRD (S/P/Bld) [Vol rate/Area] 133 mL/min/1.73 m2 Normal >=59mL/min/1. 73 m2 [facility] [place] Chem S Glucose [Mass/Vol] 108 mg/dL Normal 55 - 199 mg/dL [facility] Potassium [Moles/Vol] 3.4 mmol/L Low 3.5 - 5.3 mmol/L [facility] Sodium [Moles/Vol] 133 mmol/L Low 135 - 145 mmol/L [facility] Urea nitrogen [Mass/Vol] 8 mg/dL Normal 5 - 21 mg/dL [facility] [place] Remisol Urea nitrogen/Creatinine [Mass ratio] 16 mg/mg Normal 10 - 20 [facility] Consent for Treatmenton 12-25 Consent for Treatment [id number] #[id number]:127 Normal [facility] ED Clinical Summaryon 2022 ED Clinical Summary [address] [address] ED Clinical Summary Person Information Name: GRACIELA OLIVAREZ [place] Age: 27 Years : 1995 Sex: Female Language: Guinean PCP: Gloria CASTELLANOS CNP Marital Status: Visit [...] 01/03/2023 20:50:04 01/03/2023 20:50:04 01/03/2023 20:50:04 ADDRESS: [address] [place] [id number] PHYS DOC NOTES: MEDICAL INFORMATION: Prescriptions Given: Medications to Continue with No Changes Other Medications ondansetron (Zofran ODT 4 mg Tab-Dis) 1 Tablets By Mouth every 6 hours as needed Nausea/Vomiting. Refills: 0. valacyclovir (valacyclovir 1 g Tab) take 2 tab at first sign of cold sore repeat in 12 hours.. Refills: 1. PATIENT EDUCATION INFORMATION: Instructions: Morning Sickness, Dpgl-hf-Othi Follow up: With: Address: When: Toni TRES [facility], [address] [place] [address] [place] [address] Business (1) In 3 days 01/06/2023 DIAGNOSIS: Nausea/vomiting in Normal [facility] ED Note-Physicianon 01-04-20 ED Note-Physician Basic [...] she is dehydrated. Patient is followed by STOREROOM ATTENDANT, Dr. Watkins, has had an ultrasound which [...] discharged home with instructions to follow with STOREROOM ATTENDANT and is to return to the ED [...] Toni WATKINS In 3 days 01/06/[address] [place] [address]- Business (1) Additional Instructions: Patient Education Morning Sickness, Nmvo-nn-Wzxz Attestation Patient was treated and evaluated by the Physician Dopster. The attending physician was in the Emergency [...] is unknown (more content not included)... Normal [facility] Comment on above: Result Comment: Elec [...] these instructions at home: Medicines ? Take tikv-slu-ntxcsti and prescription medicines only as told by [...] Reviewed: 11/04/2020 Elsevier Patient Education ? 2022 [employer]. Normal [facility] ED Patient Summaryon 023 ED Patient Summary [address] [address] Patient Discharge Instructions Person Information Name: GRACIELA OLIVAREZ Age: 27 Years Arrival Date: 01/03/2023 16:15:39 Discharge Diagnosis: Nausea/vomiting in Primary Care Physician: Gloria CASTELLANOS CNP Provider Information Primary Provider: Kemal Sharma DO Advanced Back Digger Operator:Velia Correa PA-C The exam and treatment you [...] Follow-up Instructions: With: Address: When: Toni WATKINS [facility], [address] [place] [address] [place] [address] Business (1) In 3 days 01/06/2023 In the event that this physician does not participate in your insurance network, please consult with your insurance company to find a nearby participating provider. Patient Education Materials: Morning Sickness, Qyun-nb-Bqsw A MESSAGE TO ALL PATIENTS REGARDING OPIOIDS PRESCRIPTION OPIOIDS: WHAT YOU NEED TO KNOW Prescription opioids can be used to help relieve itguibgm-et-slenpl pain and are often prescribed following a [...] be struggling with addiction, tell your health care taker and ask for guidance or call [facility]?S [employer] (more content not included)... Normal [facility] HEMATOLOGYOrdered By: SYSTEM SYSTEM on 01-03-2023 [...] 35.6 g/dL Normal 31.4 - 36.0 gm/dL [facility] [place] HemeAutoSS MCV (RBC) [Entitic vol] 89.0 fL Normal 80.0 - 100.0 fL FT HemeAutoSS Platelet mean volume (Bld) [Entitic vol] 7.6 fL Normal 6.4 - 10.8 fL [facility] [place] HemeAutoSS Platelets (Bld) [#/Vol] 170.0 E9/L Normal 150.0 - 500.0 E9/L FT HemeAutoSS RBC (Bld) [#/Vol] 4.5 E12/L Normal 4.3 - 5.9 E12/L [facility] [place] HemeAutoSS WBC corrected for nucl RBC Auto (Bld) [#/Vol] 5.8 E9/L Normal 4.0 - 11.0 E9/L [facility] [place] HemeAutoSS UA With Cult Reflexon 2022 Bilirubin Ql (U) 1+ Abnormal Negative [facility] Comment on above: Performed By: #### 1 [id number] #### [facility] [address] [place] [address] Clarity (U) CLEAR Normal Clear [facility] Comment on above: Performed By: #### 1 [id number] #### [facility] [address] [place] [address] Color (U) YELLOW Normal Yellow [facility] Comment on above: Performed By: #### 1 [id number] #### [facility] [address] [place] [address] Epithelial cells.squamous LM.HPF (Urine sed) [#/Area] 3-4 Normal 0-2 [facility] Comment on above: Performed By: #### 1 [id number] #### [facility] [address] [place] [address] Glucose Test strip (U) [Mass/Vol] Negative Normal Negative [facility] Comment on above: Performed By: #### 1 [id number] #### [facility] [address] [place] [address] Hemoglobin Ql (U) 2+ Abnormal Negative [facility] Comment on above: Performed By: #### 1 [id number] #### [facility] [address] [place] [address] Ketones (U) [Mass/Vol] 2+ Abnormal Negative [facility] Comment on above: Performed By: #### 1 [id number] #### [facility] [address] [place] [address] [place].plasma/Lithiu m.RBC (Bld) [Mass ratio] 0-3 Normal 0-3 [facility] Comment on above: Performed By: #### 1 [id number] #### [facility] [address] [place] [address] Mucus Ql (Urine sed) 2+ Normal [facility] Comment on above: Performed By: #### 1 [id number] #### [facility] [address] [place] [address] Nitrite Ql (U) Negative Normal Negative [facility] Comment on above: Performed By: #### 1 [id number] #### [facility] [address] [place] [address] pH (U) 6.0 [pH] Invalid Interpretation Code 5.0-9.0 [facility] Comment on above: Performed By: #### 1 [id number] #### [facility] [address] [place] [address] Protein (U) [Mass/Vol] 1+ Abnormal Negative [facility] Comment on above: Performed By: #### 1 [id number] #### [facility] [address] [place] [address] Specific gravity (U) [Rel density] >=1.030 Invalid Interpretation Code 1.005-1.030 [facility] Comment on above: Performed By: #### 1 [id number] #### [facility] [address] [place] [address] Type of Urine collection method Clean Catch Normal [facility] Comment on above: Performed By: #### 1 [id number] #### [facility] [address] [place] [address] Urobilinogen Qn (U) 1.0 {Maggy'U}/dL Normal 0.0-1.0 [facility] Comment on above: Performed By: #### 1 [id number] #### [facility] [address] [place] [address] WBC Auto Ql (U) Negative Normal Negative [facility] Comment on above: Performed By: #### 1 [id number] #### [facility] [address] [place] [address] WBC LM.HPF (Urine sed) [#/Area] 0-5 Normal 0-5 [facility] Comment on above: Performed By: #### 1 [id number] #### [facility] [address] [id number] URINALYSISOrdered By: Dianne Ortiz on 01-03-2023 Bilirubin [...] Interpretation Code Negative [facility] UA Auto SS [place].plasma/Lithiu m.RBC (Bld) [Mass ratio] 0-3 /HPF Normal [...] [facility] UA Auto SS Urobilinogen Qn (U) 1.1701749 {Maggy'U}/dL Normal 0.0 - 1.0 EU/dL [facility] UA Auto SS WBC Auto Ql (U) Negative (01/03/23 5:04 PM) Normal Negative [facility] UA Auto SS WBC LM.HPF (Urine sed) [#/Area] 0-5 /HPF Normal 0-5/HPF [facility] UA Auto SS eGFRon 01-03-2023 GFR/1.73 sq M.predicted among non-blacks MDRD (S/P/Bld) [Vol rate/Area] 133 mL/min/1.73 m2 Normal >=59 [facility] Comment on above: Order Comment: Order added by Discern Expert. Result Comment: Director Organizational diya kidney disease could be indicated at eGFR's of less than 60 mL/min/1.73m2. Kidney failure is indicated at less than 15 mL/min/1.73m2. Performed By: #### 2 [id number], [id number] #### [facility] [address] [place] [address] CULTURE URINEon 01-10-2022 CULTURE URINE Culture Observations: MODERATE GROWTH OF MIXED GENITAL RIC. NO POTENTIAL PATHOGENS SEEN. Normal [facility] Comment on above: Performed By: #### U RCX #### [facility] [address] [address] [address] Narciso Amaral UA (CLEAN/CATCH) SHOE REPAIR SUPERVISOR/MICRO I F IND.on 01-10-2022 Bilirubin Ql (U) Negative Normal NEGATIVE [facility] Comment on above: Performed By: #### U MICRO, UACSIND #### [facility] [address] [address] [address] Narciso Amaral Clarity (U) CLEAR Normal CLEAR [facility] Comment on above: Performed By: #### U MICRO, UACSIND #### [facility] [address] [address] [address] Narciso Amaral Color (U) LT. YELLOW Normal YELLOW [facility] Comment on above: Performed By: #### U MICRO, UACSIND #### [facility] [address] [address] [address] Narciso Amaral Glucose Ql (U) Negative Normal NEGATIVE [facility] Comment on above: Performed By: #### U MICRO, UACSIND #### [facility] [address] [address] [address] Narciso Amaral Hemoglobin Ql (U) LARGE Abnormal NEGATIVE [facility] Comment on above: Performed By: #### U MICRO, UACSIND #### [facility] [address] [address] [address] Narciso Amaral Ketones Ql (U) Negative Normal NEGATIVE [facility] Comment on above: Performed By: #### U MICRO, UACSIND #### [facility] [address] [place] [address] Dr. Narciso Amaral LEUKOCYTES TRACE Abnormal NEGATIVE [facility] Comment on above: Performed By: #### U MICRO, UACSIND #### [facility] [address] [place] [address] Dr. Narciso Amaral Nitrite Ql (U) Negative Normal NEGATIVE [facility] Comment on above: Performed By: #### U MICRO, UACSIND #### [facility] [address] [place] [address] Dr. Narciso Amaral pH (U) 6.0 [pH] Normal 5-9 [facility] Comment on above: Performed By: #### U MICRO, UACSIND #### [facility] [address] [place] [address] Dr. Narciso Amaral SPEC GRAVITY <=1.005 Abnormal 1.005-<=1.025 [facility] Comment on above: Performed By: #### U MICRO, UACSIND #### [facility] [address] [place] [address] Dr. Narciso Amaral UA PROTEIN Negative Normal NEGATIVE/ TRACE [facility] Comment on above: Performed By: #### U MICRO, UACSIND #### [facility] [address] [place] [address] Dr. Narciso Amaral UR MICRO IND INDICATED Normal [facility] Comment on above: Performed By: #### U MICRO, UACSIND #### [facility] [address] [place] [address] Dr. Narciso Amaral Urobilinogen Qn (U) 0.2 {Maggy'U}/dL Normal 0.2 - 1. 0 [facility] Comment on above: Performed By: #### U MICRO, UACSIND #### [facility] [address] [place] [address] Dr. Narciso Amaral URINE MICROSCOPIC ONLYon BACTERIA SMALL Abnormal NONE SEEN [facility] Comment on above: Performed By: #### U MICRO, UACSIND #### [facility] [address] [place] [address] Dr. Narciso Amaral Bacteria identified Cx Nom (U) INDICATED Normal [facility] Comment on above: Performed By: #### U MICRO, UACSIND #### [facility] [address] [place] [address] Dr. Narciso Amaral CAST NONE SEEN Normal NONE SEEN [facility] Comment on above: Performed By: #### U MICRO, UACSIND #### [facility] [address] [address] [address] Narciso Amaral Crystals LM Nom (Urine sed) NONE SEEN Normal NONE SEEN [facility] Comment on above: Performed By: #### U MICRO, UACSIND #### [facility] [address] [place] [address] Dr. Narciso Amaral Epithelial cells LM Ql (Urine sed) FEW Abnormal NONE SEEN /RARE [facility] Comment on above: Performed By: #### U MICRO, UACSIND #### [facility] [address] [place] [address] Dr. Narciso Amaral MUCOUS NONE SEEN Normal NONE SEEN [facility] Comment on above: Performed By: #### U MICRO, UACSIND #### [facility] [address] [place] [address] Dr. Narciso Amaral RBC 5-10 Abnormal 0-2 [facility] Comment on above: Performed By: #### U MICRO, UACSIND #### [facility] [address] [place] [address] Dr. Narciso Amaral WBC 0-2 Abnormal NONE SEEN [facility] Comment on above: Performed By: #### U MICRO, UACSIND #### [facility] [address] [place] [address] Dr. Narciso Amaral CBC AUTO DIFFon 01-09-2022 BASO # 0.0 103/ul Normal 0.0-0.1 [facility] Comment on above: Performed By: #### C BC #### [facility] [address] [place] [address] Dr. Narciso Amaral Basophils/100 WBC (Bld) 0.2 % Normal 0.2-2.0 [facility] Comment on above: Performed By: #### C BC #### [facility] [address] [place] [address] Dr. Narciso Amaral EO # 0.0 103/ul Normal 0.0-0.7 [facility] Comment on above: Performed By: #### C BC #### [facility] [address] [place] [address] Dr. Narciso Amaral Eosinophils/100 WBC (Bld) 0.1 % Critically low 0.9-7.0 [facility] Comment on above: Performed By: #### C BC #### [facility] [address] [place] [address] Dr. Narciso Amaral Erythrocyte distribution width (RBC) [Ratio] 12.8 % Normal 11.0-15.0 [facility] Comment on above: Performed By: #### C BC #### [facility] [address] [place] [address] Dr. Narciso Amaral Hematocrit (Bld) [Volume fraction] 30.8 % Critically low 36.0-48.0 [facility] Comment on above: Performed By: #### C BC #### [facility] [address] [place] [address] Dr. Narciso Amaral Hemoglobin (Bld) [Mass/Vol] 10.0 g/dL Critically low 12.0-16.0 [facility] Comment on above: Performed By: #### C BC #### [facility] [address] [place] [address] Dr. Narciso Amaral IG # 0.02 10e3/ul Normal 0.00-0.03 [facility] Comment on above: Performed By: #### C BC #### [facility] [address] [place] [address] Dr. Narciso Amaral IG % 0.2 % Normal 0.0-0.5 [facility] Comment on above: Performed By: #### C BC #### [facility] [address] [place] [address] Dr. Narciso Amaral LYMPH # 1.4 103/ul Normal 1.2-3.8 [facility] Comment on above: Performed By: #### C BC #### [facility] [address] [place] [address] Dr. Narciso Amaral Lymphocytes/100 WBC (Bld) 14.0 % Critically low 20.5-60.0 [facility] Comment on above: Performed By: #### C BC #### [facility] [address] [place] [address] Dr. Narciso Amaral MANUAL DIFF REQ NO Normal [facility] Comment on above: Performed By: #### C BC #### [facility] [address] [place] [address] Dr. Narciso Amaral MCH (RBC) [Entitic mass] 31.7 pg Normal 26.7-34.0 [facility] Comment on above: Performed By: #### C BC #### [facility] [address] [place] [address] Dr. Narciso Amaral MCHC (RBC) [Mass/Vol] 32.5 g/dL Normal 29.9-35.2 [facility] Comment on above: Performed By: #### C BC #### [facility] [address] [place] [address] Dr. Narciso Amaral MCV (RBC) [Entitic vol] 97.8 fL Normal 81.0-99.0 [facility] Comment on above: Performed By: #### C BC #### [facility] [address] [place] [address] Dr. Narciso Amaral MONO # 0.8 103/ul Normal 0.3-0.8 [facility] Comment on above: Performed By: #### C BC #### [facility] [address] [place] [address] Dr. Narciso Amaral Monocytes/100 WBC (Bld) 8.2 % Normal 1.7-12.0 [facility] Comment on above: Performed By: #### C BC #### [facility] [address] [place] [address] Dr. Narciso Amaral NEUT # 7.9 103/ul Critically high 1.4-6.5 [facility] Comment on above: Performed By: #### C BC #### [facility] [address] [place] [address] Dr. Narciso Amaral Neutrophils/100 WBC (Bld) 77.3 % Critically high 43.0-75.0 [facility] Comment on above: Performed By: #### C BC #### [facility] [address] [place] [address] Dr. Narciso Amaral Platelet mean volume (Bld) [Entitic vol] 9.9 fL Normal 9.5-13.5 [facility] Comment on above: Performed By: #### C BC #### [facility] [address] [address] [address] Narciso Amaral PLT 143 103/ul Critically low 150-450 [facility] Comment on above: Performed By: #### C BC #### [facility] [address] [address] [address] Narciso Amaral RBC 3.15 106/ul Critically low 4.20-5.40 [facility] Comment on above: Performed By: #### C BC #### [facility] [address] [place] [address] Dr. Narciso Amaral WBC 10.2 103/ul Normal 4.0-11.0 [facility] Comment on above: Performed By: #### C BC #### [facility] [address] [place] [address] Dr. Narciso Amaral CBC AUTO DIFFon 01-08-2022 BASO # 0.0 103/ul Normal 0.0-0.1 [facility] Comment on above: Performed By: #### C BC #### [facility] [address] [place] [address] Dr. Narciso Amaral Basophils/100 WBC (Bld) 0.3 % Normal 0.2-2.0 [facility] Comment on above: Performed By: #### C BC #### [facility] [address] [place] [address] Dr. Narciso Amaral EO # 0.0 103/ul Normal 0.0-0.7 [facility] Comment on above: Performed By: #### C BC #### [facility] [address] [place] [address] Dr. Narciso Amaral Eosinophils/100 WBC (Bld) 0.4 % Critically low 0.9-7.0 [facility] Comment on above: Performed By: #### C BC #### [facility] [address] [place] [address] Dr. Narciso Amaral Erythrocyte distribution width (RBC) [Ratio] 12.7 % Normal 11.0-15.0 [facility] Comment on above: Performed By: #### C BC #### [facility] [address] [place] [address] Dr. Narciso Amaral Hematocrit (Bld) [Volume fraction] 38.0 % Normal 36.0-48.0 [facility] Comment on above: Performed By: #### C BC #### [facility] [address] [place] [address] Dr. Narciso Amaral Hemoglobin (Bld) [Mass/Vol] 12.5 g/dL Normal 12.0-16.0 [facility] Comment on above: Performed By: #### C BC #### [facility] [address] [place] [address] Dr. Narciso Amaral IG # 0.03 10e3/ul Normal 0.00-0.03 [facility] Comment on above: Performed By: #### C BC #### [facility] [address] [place] [address] Dr. Narciso Amaral IG % 0.4 % Normal 0.0-0.5 [facility] Comment on above: Performed By: #### C BC #### [facility] [address] [place] [address] Dr. Narciso Amaral LYMPH # 1.3 103/ul Normal 1.2-3.8 [facility] Comment on above: Performed By: #### C BC #### [facility] [address] [place] [address] Dr. Narciso Amaral Lymphocytes/100 WBC (Bld) 17.6 % Critically low 20.5-60.0 [facility] Comment on above: Performed By: #### C BC #### [facility] [address] [place] [address] Dr. Narciso Amaral MANUAL DIFF REQ NO Normal [facility] Comment on above: Performed By: #### C BC #### [facility] [address] [place] [address] Dr. Narciso Amaral MCH (RBC) [Entitic mass] 31.6 pg Normal 26.7-34.0 [facility] Comment on above: Performed By: #### C BC #### [facility] [address] [place] [address] Dr. Narciso Amaral MCHC (RBC) [Mass/Vol] 32.9 g/dL Normal 29.9-35.2 [facility] Comment on above: Performed By: #### C BC #### [facility] [address] [place] [address] Dr. Narciso Amaral MCV (RBC) [Entitic vol] 96.0 fL Normal 81.0-99.0 [facility] Comment on above: Performed By: #### C BC #### [facility] [address] [place] [address] Dr. Narciso Amaral MONO # 0.5 103/ul Normal 0.3-0.8 [facility] Comment on above: Performed By: #### C BC #### [facility] [address] [place] [address] Dr. Narciso Amaral Monocytes/100 WBC (Bld) 6.2 % Normal 1.7-12.0 [facility] Comment on above: Performed By: #### C BC #### [facility] [address] [place] [address] Dr. Narciso Amaral NEUT # 5.5 103/ul Normal 1.4-6.5 [facility] Comment on above: Performed By: #### C BC #### [facility] [address] [place] [address] Dr. Narciso Amaral Neutrophils/100 WBC (Bld) 75.1 % Critically high 43.0-75.0 [facility] Comment on above: Performed By: #### C BC #### [facility] [address] [place] [address] Dr. Narciso Amaral Platelet mean volume (Bld) [Entitic vol] 10.3 fL Normal 9.5-13.5 [facility] Comment on above: Performed By: #### C BC #### [facility] [address] [place] [address] Dr. Narciso Amaral PLT 159 103/ul Normal 150-450 [facility] Comment on above: Performed By: #### C BC #### [facility] [address] [place] [address] Dr. Narciso Amaral RBC 3.96 106/ul Critically low 4.20-5.40 [facility] Comment on above: Performed By: #### C BC #### [facility] [address] [address] [address] Narciso Amaral WBC 7.4 103/ul Normal 4.0-11.0 [facility] Comment on above: Performed By: #### C BC #### [facility] [address] [place] [address] Dr. Narciso Amaral Covid-19 PCR ([facility])on 12-25 SARS-CoV-2 (COVID-19) RNA MOHAN+probe Ql (Unsp spec) Not detected Normal NOT DETECTED [facility] Comment on above: Result Comment: When [...] for this test is supported by the [place] of [employer] and Human Service's declaration that [...] used). Performed By: #### C VDTBH #### [facility] [address] [place] [address] Dr. Narciso Amaral DRUG SCREEN RAPID (URINE)on 01-08-2022 AMP Negative Normal NEGATIVE [facility] Comment on above: Performed By: #### C T/NGNA #### [facility] [address] [place] [address] Dr. Narciso Amaral BAR Negative Normal NEGATIVE [facility] Comment on above: Performed By: #### C T/NGNA #### [facility] [address] [place] [address] Dr. Narciso Amaral BUP Negative Normal NEGATIVE [facility] Comment on above: Performed By: #### C T/NGNA #### [facility] [address] [place] [address] Dr. Narciso Amaral BZO Negative Normal NEGATIVE [facility] Comment on above: Performed By: #### C T/NGNA #### [facility] [address] [place] [address] Dr. Narciso Amaral TREY Negative Normal NEGATIVE [facility] Comment on above: Performed By: #### C T/NGNA #### [facility] [address] [place] [address] Dr. Narciso Amaral CUT-OFFS SEE BELOW Normal [facility] Comment on above: Result Comment: AMP [...] ng/mL Performed By: #### C T/NGNA #### [facility] [address] [place] [address] Dr. Narciso Amaral DRUG CUT HEADER DRUG CLASS TEST SYSTEM CUT-OFF CONCENTRATIONS ARE FOLLOWS: Normal [facility] Comment on above: Performed By: #### C T/NGNA #### [facility] [address] [place] [address] Dr. Narciso Amaral mAMP Negative Normal NEGATIVE [facility] Comment on above: Performed By: #### C T/NGNA #### [facility] [address] [address] [address] Narciso Amaral MTD Negative Normal NEGATIVE [facility] Comment on above: Performed By: #### C T/NGNA #### [facility] [address] [address] [address] Narciso Amaral OPI Negative Normal NEGATIVE [facility] Comment on above: Performed By: #### C T/NGNA #### [facility] [address] [address] [address] Narciso Amaral OXY Negative Normal NEGATIVE [facility] Comment on above: Performed By: #### C T/NGNA #### [facility] [address] [place] [address] Dr. Narciso Amaral PCP Negative Normal NEGATIVE [facility] Comment on above: Performed By: #### C T/NGNA #### [facility] [address] [place] [address] Dr. Narciso Amaral PPX Negative Normal NEGATIVE [facility] Comment on above: Performed By: #### C T/NGNA #### [facility] [address] [address] [address] Narciso Amaral TCA Negative Normal NEGATIVE [facility] Comment on above: Performed By: #### C T/NGNA #### [facility] [address] [place] [address] Dr. Narciso Amaral THC Negative Normal NEGATIVE [facility] Comment on above: Performed By: #### C T/NGNA #### [facility] [address] [place] [address] Dr. Narciso Amaral TYPE AND SCREENon 01-08-2022 TYPE AND SCREEN Negative Normal [facility] Comment on above: Performed By: #### C T/NGNA #### [facility] [address] [place] [address] Dr. Narciso Amaral US PREG BIOPHY W [...] KRISTINA ESTRADA Date: 2022-01-07 16:20 Normal [facility] US PREG BIOPHY W NON STRESSo [...] KRISTINA ESTRADA Date: 2021-12-31 16:27 Normal [facility] VAGINITIS/VAGINOSIS DNA PROB Julius 12-26-2021 Fany species Negative Normal Negative [facility] Comment on above: Performed By: #### C BC #### [facility] [address] [place] [address] Dr. Narciso Amaral Gardnerella vaginalis Negative Normal Negative [facility] Comment on above: Performed By: #### C BC #### [facility] [address] [address] [address] Narciso Amaral Trichomonas vaginalis Negative Normal Negative [facility] Comment on above: Performed By: #### C BC #### [facility] [address] [address] [address] Narciso Amaral US PREG BIOPHY W [...] KRISTINA ESTRADA Date: 2021-12-25 09:13 Normal [facility] GROUP B STREP CULTUREon 11-26 S. agalactiae Ag Ql (Unsp spec) Culture Observations: NEGATIVE FOR GROUP B STREPTOCOCCUS. Normal [facility] Comment on above: Performed By: #### C T/HAWA #### [facility] [address] [place] [address] Dr. Narciso Amaral US PREG GROWTHon 12-24-2021 US PREG GROWTH Ultrasound biophysical profile Ultrasound obstetrical, limited CLINICAL: Oligohydramnios follow-up. TECHNIQUE: Transabdominal obstetrical ultrasound was performed. Ultrasound biophysical profile was also performed by bar supervisor. FINDINGS: 09/29/2021. FETUS AND PLACENTA: There [...] gestational age according to Hadlock criteria. Remarks: Radiator Core Tester reports that Dr. Watkins is aware of findings. Electronically authenticated by: AMPARO PATEL Date: 2021-12-24 12:27 Normal [facility] CBCon 10-28-2021 Hematocrit (Bld) [Volume fraction] 35.7 % Low 36 - 46 % [facility] Hemoglobin (Bld) [Mass/Vol] 11.9 g/dL Low 12.0 - 16.0 g/dL [facility] Interpretation and review of laboratory results Abnormal [facility] MCH (RBC) [Entitic mass] 32.8 pg 26 - 34 pg [facility] MCHC (RBC) [Mass/Vol] 33.4 g/dL 31 - 37 g/dL [facility] MCV (RBC) [Entitic vol] 98.1 fL 80 - 100 fL [facility] Platelet distribution width (Bld) [Ratio] 12.1 % 12.1 - 15.2 % [facility] Platelets (Bld) [#/Vol] 178 10*3/uL [facility] RBC (Bld) [#/Vol] 3.64 10*6/uL Low 4.0 - 5.2 m/uL [facility] WBC (Bld) [#/Vol] 7.6 10*3/uL [facility] Glucose tolerance, 1 houron 10-28-2021 GLU ADMN Glucola [facility] Glucose tolerance screen 50g 134 mg/dL 70 - 135 mg/dL [facility] US PREG INCOMPLETE ANATOMYon 09-29-2021 [...] by: GREG RODNEY Date: 2021-09-29 08:50 Normal [facility] US PREG ANATOMY SINGLEon US PREG [...] KRISTINA ESTRADA Date: 2021-09-01 16:26 Normal The [facility] AFP MATERNAL FOR SPINA BIFID Aon 08-25-2021 AFP MoM 0.71 Normal [facility] Comment on above: Performed By: #### C BC #### [facility] [address] [address] [address] Narciso Amaral AFP Value 45.2 ng/mL Normal [facility] Comment on above: Performed By: #### C BC #### [facility] [address] [address] [address] Narciso Amaral AFP, Serum for Spina Bifida Report Normal [facility] Comment on above: Performed By: #### C BC #### [facility] [address] [address] [address] Narciso Amaral Comment Comment Normal [facility] Comment on above: Result Comment: Ky Magallon, Ph.D., [facility] Director . References: Available Upon Request. . Multiples Of Median Cutoffs For AFP Elevations Bernstein 2.5 Black 2.8 IDD 2.0 Twins 4.5 Abbreviation Definitions IDD - Insulin Dep Diabetes OSBR - Open Spina Bifida Risk . For further inquiries contact [employer] at [phone]. Performed By: #### C BC #### [facility] [address] [address] [address] Narciso Amaral Gest Age Collection Date 19.0 weeks Normal [facility] Comment on above: Performed By: #### C BC #### [facility] [address] [address] [address] Narciso Amaral Gestat, Age Based on LMP Normal [facility] Comment on above: Result Comment: Reca lculations are not recommended when gestational dating by LMP and ultrasound are within 10 days. Performed By: #### C BC #### [facility] [address] [address] [address] Narciso Amaral Insulin Dep Diabetes No Normal [facility] Comment on above: Performed By: #### C BC #### [facility] [address] [address] [address] Narciso Amaral Interpretation Comment Normal [facility] Comment on above: Result Comment: Inte [...] Customer Services to discuss available options. The [employer] recommends amniocentesis be offered to women age 35 and older. Performed By: #### C BC #### [facility] [address] [place] [address] Dr. Narciso Amaral [age] Normal [facility] Comment on above: Performed By: #### C BC #### [facility] [address] [address] [address] Narciso Amaral Multiple Gestation No Normal [facility] Comment on above: Performed By: #### C BC #### [facility] [address] [place] [address] Dr. Narciso Amaral [place] [id number] Normal [facility] Comment on above: Performed By: #### C BC #### [facility] [address] [place] [address] Dr. Narciso Amaral PDF . [facility] Comment on above: Performed By: #### C BC #### [facility] [address] [place] [address] Dr. Narciso Amaral Race [facility] Comment on above: Performed By: #### C BC #### [facility] [address] [place] [address] Dr. Narciso Amaral Test Results: Negative [facility] Comment on above: Performed By: #### C BC #### [facility] [address] [place] [address] Dr. Narciso Amaral PAP ACOG PANEL 2: 21 to 29on 08-23-2021 . . [facility] Comment on above: Performed By: #### C BC #### [facility] [address] [place] [address] Dr. Narciso Amaral Age Gdln ACOG Testing - [facility] Comment on above: Performed By: #### C BC #### [facility] [address] [place] [address] Dr. Narciso Amaral DIAGNOSIS: Comment [facility] Comment on above: Result Comment: NEGA TIVE FOR INTRAEPITHELIAL LESION OR MALIGNANCY. Performed By: #### C BC #### [facility] [address] [place] [address] Dr. Narciso Amaral Methodology: Comment [facility] Comment on above: Result Comment: This liquid based ThinPrep(R) pap test was screened with the use of an image guided system. Performed By: #### C BC #### [facility] [address] [place] [address] Dr. Narciso Amaral Note: Comment [facility] Comment on above: Result Comment: The Pap smear is a screening test designed to aid in the detection of premalignant and malignant conditions of the uterine cervix. It is not a diagnostic procedure and should not be used as the sole means of detecting cervical cancer. Both false-positive and false-negative reports do occur. . Performed By: #### C BC #### [facility] [address] [place] [address] Dr. Narciso Amaral Performed by: Comment Normal [facility] Comment on above: Result Comment: Nani [employer], Label Press Operator (ASCP) Performed By: #### C BC #### [facility] [address] [address] [address] Narciso Amaral Reflex Criteria: Comment Normal [facility] Comment on above: Result Comment: The HPV DNA reflex criteria were not met with this specimen result therefore, no HPV testing was performed. . Performed By: #### C BC #### [facility] [address] [address] [address] Narciso Amaral Specimen adequacy: Comment Normal [facility] Comment on above: Result Comment: Sati sfactory for evaluation. No endocervical component is identified. Performed By: #### C BC #### [facility] [address] [place] [address] Dr. Narciso Amaral CHLAMYDIA/GONOCOCCUS MOHAN (SW AB/URINE/PAPon 08-21-2021 Chlamydia trachomatis, MOHAN Negative Normal Negative [facility] Comment on above: Performed By: #### C T/NGNA #### [facility] [address] [address] [address] Narciso Amaral Neisseria gonorrhoeae, MOHAN Negative Normal Negative [facility] Comment on above: Performed By: #### C T/NGNA #### [facility] [address] [address] [address] Narciso Amaral HEP B SURFACE ANTIGEN SCREEN on 07-04-2021 HBsAg Screen Negative Normal Negative [facility] Comment on above: Performed By: #### N BOX #### [facility] [address] [address] [address] Narciso Amaral HEPATITIS C VIRUS AB W/ REFL EX QUANTon 07-04-2021 HCV AB <0.1 Normal 0.0-0.9 [facility] Comment on above: Performed By: #### C BC #### [facility] [address] [place] [address] Dr. Narciso Amaral Interpretation: Comment Normal [facility] Comment on above: Result Comment: Nega tive Not infected with HCV, unless recent infection is suspected or other evidence exists to indicate HCV infection. Performed By: #### C BC #### [facility] [address] [place] [address] Dr. Narciso Amaral HIV 1 AND 2 WITH REFLEXon HIV Screen 4th Generation wRfx Non-Reactive Normal Non Reactive [facility] Comment on above: Result Comment: HIV Negative HIV-1/HIV-2 antibodies and HIV-1 p24 antigen were NOT detected. There is no laboratory evidence of HIV infection. Performed By: #### N BOX #### [facility] [address] [place] [address] Dr. Narciso Amaral RPR QUANTon 07-04-2021 Rapid Plasma Reagin, Quant Non-Reactive Normal NonRea<1:1 [facility] Comment on above: Performed By: #### C BC #### [facility] [address] [place] [address] Dr. Narciso Amaral RUBELLA AB IGGon 07-04-2021 Rubella Antibodies, IgG <0.90 Critically low Immune >0.99 [facility] Comment on above: Result Comment: Non- immune <0.90 Equivocal 0.90 - 0.99 Immune >0.99 Performed By: #### R UBIGG #### [facility] [address] [place] [address] Dr. Narciso Amaral CBC AUTO DIFFon 07-03-2021 BASO # 0.0 103/ul Normal 0.0-0.1 [facility] Comment on above: Performed By: #### C BC #### [facility] [address] [place] [address] Dr. Narciso Amaral Basophils/100 WBC (Bld) 0.4 % Normal 0.2-2.0 [facility] Comment on above: Performed By: #### C BC #### [facility] [address] [place] [address] Dr. Narciso Amaral EO # 0.0 103/ul Normal 0.0-0.7 [facility] Comment on above: Performed By: #### C BC #### [facility] [address] [place] [address] Dr. Narciso Amaral Eosinophils/100 WBC (Bld) 0.4 % Critically low 0.9-7.0 [facility] Comment on above: Performed By: #### C BC #### [facility] [address] [place] [address] Dr. Narciso Amaral Erythrocyte distribution width (RBC) [Ratio] 11.9 % Normal 11.0-15.0 [facility] Comment on above: Performed By: #### C BC #### [facility] [address] [place] [address] Dr. Narciso Amaral Hematocrit (Bld) [Volume fraction] 33.0 % Critically low 36.0-48.0 [facility] Comment on above: Performed By: #### C BC #### [facility] [address] [place] [address] Dr. Narciso Amaral Hemoglobin (Bld) [Mass/Vol] 11.3 g/dL Critically low 12.0-16.0 [facility] Comment on above: Performed By: #### C BC #### [facility] [address] [place] [address] Dr. Narciso Amaral IG # 0.01 10e3/ul Normal 0.00-0.03 [facility] Comment on above: Performed By: #### C BC #### [facility] [address] [place] [address] Dr. Narciso Amaral IG % 0.2 % Normal 0.0-0.5 [facility] Comment on above: Performed By: #### C BC #### [facility] [address] [place] [address] Dr. Narciso Amaral LYMPH # 1.9 103/ul Normal 1.2-3.8 [facility] Comment on above: Performed By: #### C BC #### [facility] [address] [place] [address] Dr. Narciso Amaral Lymphocytes/100 WBC (Bld) 35.9 % Normal 20.5-60.0 [facility] Comment on above: Performed By: #### C BC #### [facility] [address] [place] [address] Dr. Narciso Amaral MANUAL DIFF REQ NO Normal [facility] Comment on above: Performed By: #### C BC #### [facility] [address] [place] [address] Dr. Narciso Amaral MCH (RBC) [Entitic mass] 31.6 pg Normal 26.7-34.0 [facility] Comment on above: Performed By: #### C BC #### [facility] [address] [place] [address] Dr. Narciso Amaral MCHC (RBC) [Mass/Vol] 34.2 g/dL Normal 29.9-35.2 [facility] Comment on above: Performed By: #### C BC #### [facility] [address] [place] [address] Dr. Narciso Amaral MCV (RBC) [Entitic vol] 92.2 fL Normal 81.0-99.0 [facility] Comment on above: Performed By: #### C BC #### [facility] [address] [place] [address] Dr. Narciso Amaral MONO # 0.2 103/ul Critically low 0.3-0.8 [facility] Comment on above: Performed By: #### C BC #### [facility] [address] [place] [address] Dr. Narciso Amaral Monocytes/100 WBC (Bld) 4.2 % Normal 1.7-12.0 [facility] Comment on above: Performed By: #### C BC #### [facility] [address] [place] [address] Dr. Narciso Amaral NEUT # 3.1 103/ul Normal 1.4-6.5 [facility] Comment on above: Performed By: #### C BC #### [facility] [address] [place] [address] Dr. Narciso Amaral Neutrophils/100 WBC (Bld) 58.9 % Normal 43.0-75.0 [facility] Comment on above: Performed By: #### C BC #### [facility] [address] [place] [address] Dr. Narciso Amaral Platelet mean volume (Bld) [Entitic vol] 10.4 fL Normal 9.5-13.5 [facility] Comment on above: Performed By: #### C BC #### [facility] [address] [place] [address] Dr. Narciso Amaral PLT 158 103/ul Normal 150-450 [facility] Comment on above: Performed By: #### C BC #### [facility] [address] [address] [address] Narciso Amaral RBC 3.58 106/ul Critically low 4.20-5.40 [facility] Comment on above: Performed By: #### C BC #### [facility] [address] [place] [address] Dr. Narciso Amaral WBC 5.2 103/ul Normal 4.0-11.0 [facility] Comment on above: Performed By: #### C BC #### [facility] [address] [place] [address] Dr. Narciso Amaral CULTURE URINEon 07-03-2021 CULTURE URINE Culture Observations: No growth Normal [facility] Comment on above: Performed By: #### U RCX #### [facility] [address] [place] [address] Dr. Narciso Amaral GLYCOHEMOGLOBIN A1Con 2021 ADA RECOMMENDATION ADA THERAPEUTIC TARGET 6.0 - 7.0 ACTION SUGGESTED > 7.0 Normal [facility] Comment on above: Performed By: #### N BOX #### [facility] [address] [place] [address] Dr. Narciso Amaral Glucose [Mass/Vol] 88 mg/dL Normal [facility] Comment on above: Performed By: #### N BOX #### [facility] [address] [place] [address] Dr. Narciso Amaral HbA1c (Bld) [Mass fraction] 4.7 % Normal <=6.0 [facility] Comment on above: Performed By: #### N BOX #### [facility] [address] [place] [address] Dr. Narciso Amaral BERNADINE BOX TEST PT SEND OUTo n 07-03-2021 SENT TO REF LAB 07/03/2021 Normal [facility] Comment on above: Performed By: #### N BOX #### [facility] [address] [place] [address] Dr. Narciso Amaral TYPE AND SCREENon 07-03-2021 TYPE AND SCREEN Negative Normal [facility] Comment on above: Performed By: #### C T/NGNA #### [facility] [address] [place] [address] Dr. Narciso Amaral CBC AUTO DIFFon 06-17-2021 BASO # 0.0 103/ul Normal 0.0-0.1 [facility] Comment on above: Performed By: #### N BOX #### [facility] [address] [place] [address] Dr. Narciso Amaral Basophils/100 WBC (Bld) 0.4 % Normal 0.2-2.0 [facility] Comment on above: Performed By: #### N BOX #### [facility] [address] [place] [address] Dr. Narciso Amaral EO # 0.0 103/ul Normal 0.0-0.7 [facility] Comment on above: Performed By: #### N BOX #### [facility] [address] [place] [address] Dr. Narciso Amaral Eosinophils/100 WBC (Bld) 0.0 % Critically low 0.9-7.0 [facility] Comment on above: Performed By: #### N BOX #### [facility] [address] [place] [address] Dr. Narciso Amaral Erythrocyte distribution width (RBC) [Ratio] 11.6 % Normal 11.0-15.0 [facility] Comment on above: Performed By: #### N BOX #### [facility] [address] [place] [address] Dr. Narciso Amaral Hematocrit (Bld) [Volume fraction] 42.6 % Normal 36.0-48.0 [facility] Comment on above: Performed By: #### N BOX #### [facility] [address] [place] [address] Dr. Narciso Amaral Hemoglobin (Bld) [Mass/Vol] 14.9 g/dL Normal 12.0-16.0 [facility] Comment on above: Performed By: #### N BOX #### [facility] [address] [place] [address] Dr. Narciso Amaral IG # 0.02 10e3/ul Normal 0.00-0.03 [facility] Comment on above: Performed By: #### N BOX #### [facility] [address] [place] [address] Dr. Narciso Amaral IG % 0.3 % Normal 0.0-0.5 [facility] Comment on above: Performed By: #### N BOX #### [facility] [address] [place] [address] Dr. Narciso Amaral LYMPH # 2.1 103/ul Normal 1.2-3.8 [facility] Comment on above: Performed By: #### N BOX #### [facility] [address] [place] [address] Dr. Narciso Amaral Lymphocytes/100 WBC (Bld) 28.8 % Normal 20.5-60.0 [facility] Comment on above: Performed By: #### N BOX #### [facility] [address] [place] [address] Dr. Narciso Amaral MANUAL DIFF REQ NO Normal [facility] Comment on above: Performed By: #### N BOX #### [facility] [address] [place] [address] Dr. Narciso Amaral MCH (RBC) [Entitic mass] 31.6 pg Normal 26.7-34.0 [facility] Comment on above: Performed By: #### N BOX #### [facility] [address] [place] [address] Dr. Narciso Amaral MCHC (RBC) [Mass/Vol] 35.0 g/dL Normal 29.9-35.2 [facility] Comment on above: Performed By: #### N BOX #### [facility] [address] [place] [address] Dr. Narciso Amaral MCV (RBC) [Entitic vol] 90.4 fL Normal 81.0-99.0 [facility] Comment on above: Performed By: #### N BOX #### [facility] [address] [place] [address] Dr. Narciso Amaral MONO # 0.3 103/ul Normal 0.3-0.8 [facility] Comment on above: Performed By: #### N BOX #### [facility] [address] [place] [address] Dr. Narciso Amaral Monocytes/100 WBC (Bld) 4.6 % Normal 1.7-12.0 [facility] Comment on above: Performed By: #### N BOX #### [facility] [address] [place] [address] Dr. Narciso Amaral NEUT # 4.7 103/ul Normal 1.4-6.5 [facility] Comment on above: Performed By: #### N BOX #### [facility] [address] [place] [address] Dr. Narciso Amaral Neutrophils/100 WBC (Bld) 65.9 % Normal 43.0-75.0 [facility] Comment on above: Performed By: #### N BOX #### [facility] [address] [place] [address] Dr. Narciso Amaral Platelet mean volume (Bld) [Entitic vol] 9.7 fL Normal 9.5-13.5 [facility] Comment on above: Performed By: #### N BOX #### [facility] [address] [place] [address] Dr. Narciso Amaral PLT 199 103/ul Normal 150-450 [facility] Comment on above: Performed By: #### N BOX #### [facility] [address] [place] [address] Dr. Narciso Amaral RBC 4.71 106/ul Normal 4.20-5.40 [facility] Comment on above: Performed By: #### N BOX #### [facility] [address] [place] [address] Dr. Narciso Amaral WBC 7.1 103/ul Normal 4.0-11.0 [facility] Comment on above: Performed By: #### N BOX #### [facility] [address] [place] [address] Dr. Narciso Amaral ER URINE PROFILEon 2 Bilirubin Ql (U) Negative Normal NEGATIVE [facility] Comment on above: Performed By: #### E RUR #### [facility] [address] [place] [address] Dr. Narciso Amaral Clarity (U) SL CLOUDY Abnormal CLEAR [facility] Comment on above: Performed By: #### E RUR #### [facility] [address] [place] [address] Dr. Narciso Amaral Color (U) YELLOW Normal YELLOW [facility] Comment on above: Performed By: #### E RUR #### [facility] [address] [place] [address] Dr. Narciso MCCLELLAN A micrscopic examination will be performed if indicated. Normal [facility] Comment on above: Performed By: #### E RUR #### [facility] [address] [place] [address] Dr. Narciso Amaral Glucose Ql (U) Negative Normal NEGATIVE [facility] Comment on above: Performed By: #### E RUR #### [facility] [address] [place] [address] Dr. Narciso Amaral Hemoglobin Ql (U) Negative Normal NEGATIVE [facility] Comment on above: Performed By: #### E RUR #### [facility] [address] [place] [address] Dr. Narciso Amaral Ketones Ql (U) >=80 Abnormal NEGATIVE [facility] Comment on above: Performed By: #### E RUR #### [facility] [address] [address] [address] Narciso Amaral LEUKOCYTES Negative Normal NEGATIVE [facility] Comment on above: Performed By: #### E RUR #### [facility] [address] [place] [address] Dr. Narciso Amaral Nitrite Ql (U) Negative Normal NEGATIVE [facility] Comment on above: Performed By: #### E RUR #### [facility] [address] [place] [address] Dr. Narciso Amaral pH (U) 6.0 [pH] Normal 5-9 [facility] Comment on above: Performed By: #### E RUR #### [facility] [address] [place] [address] Dr. Narciso Amaral SPEC GRAVITY >=1.030 Abnormal 1.005-<=1.025 [facility] Comment on above: Performed By: #### E RUR #### [facility] [address] [place] [address] Dr. Narciso Amaral UA PROTEIN TRACE Normal NEGATIVE/ TRACE [facility] Comment on above: Performed By: #### E RUR #### [facility] [address] [place] [address] Dr. Narciso Amaral UR MICRO IND NOT INDICATED Normal [facility] Comment on above: Performed By: #### E RUR #### [facility] [address] [place] [address] Dr. Narciso Amaral Urobilinogen Qn (U) 1.0 {Maggy'U}/dL Normal 0.2 - 1. 0 [facility] Comment on above: Performed By: #### E RUR #### [facility] [address] [place] [address] Dr. Narciso Amaral PROF 14(COMP METB)on 022 Albumin [Mass/Vol] 4.6 g/dL Normal 3.5-5.0 [facility] Comment on above: Performed By: #### C BC #### [facility] [address] [place] [address] Dr. Narciso Amaral Albumin/Globulin [Mass ratio] 1.0 {ratio} Normal [facility] Comment on above: Performed By: #### C BC #### [facility] [address] [place] [address] Dr. Narciso Amaral ALP [Catalytic activity/Vol] 54 U/L Normal 38-126 [facility] Comment on above: Performed By: #### C BC #### [facility] [address] [place] [address] Dr. Narciso Amaral ALT [Catalytic activity/Vol] 12 U/L Normal 9-52 [facility] Comment on above: Performed By: #### C BC #### [facility] [address] [address] [address] Narciso Amaral Anion gap [Moles/Vol] 14.8 mmol/L Normal [facility] Comment on above: Performed By: #### C BC #### [facility] [address] [address] [address] Narciso Amaral AST [Catalytic activity/Vol] 11 U/L Critically low 14-36 [facility] Comment on above: Performed By: #### C BC #### [facility] [address] [address] [address] Narciso Amaral Bilirubin [Mass/Vol] 0.9 mg/dL Normal 0.2-1.3 [facility] Comment on above: Performed By: #### C BC #### [facility] [address] [address] [address] Narciso Amaral Calcium [Mass/Vol] 9.6 mg/dL Normal 8.4-10.2 [facility] Comment on above: Performed By: #### C BC #### [facility] [address] [address] [address] Narciso Amaral Chloride [Moles/Vol] 98 mmol/L Normal 98-107 [facility] Comment on above: Performed By: #### C BC #### [facility] [address] [address] [address] Narciso Amaral CO2 [Moles/Vol] 27.3 mmol/L Normal 22.0-30.0 [facility] Comment on above: Performed By: #### C BC #### [facility] [address] [place] [address] Dr. Narciso Amaral Creatinine [Mass/Vol] 0.55 mg/dL Normal 0.52-1.04 [facility] Comment on above: Performed By: #### C BC #### [facility] [address] [address] [address] Narciso Amaral EGFR-AF [place] >60 Normal >=60 [facility] Comment on above: Performed By: #### C BC #### [facility] [address] [address] [address] Narciso Amaral EGFR-NON AF [place] >60 Normal >=60 [facility] Comment on above: Performed By: #### C BC #### [facility] [address] [address] [address] Narciso Amaral Globulin (S) [Mass/Vol] 4.7 g/dL Normal [facility] Comment on above: Performed By: #### C BC #### [facility] [address] [address] [address] Narciso Amaral Glucose [Mass/Vol] 87 mg/dL Normal 74-106 [facility] Comment on above: Performed By: #### C BC #### [facility] [address] [address] [address] Narciso Amaral Potassium [Moles/Vol] 3.1 mmol/L Critically low 3.4-5.0 [facility] Comment on above: Performed By: #### C BC #### [facility] [address] [address] [address] Narciso Amaral Protein [Mass/Vol] 9.3 g/dL Critically high 6.1-8.2 [facility] Comment on above: Performed By: #### C BC #### [facility] [address] [address] [address] Narciso Amaral Sodium [Moles/Vol] 137 mmol/L Normal 137-145 [facility] Comment on above: Performed By: #### C BC #### [facility] [address] [address] [address] Narciso Amaral Urea nitrogen [Mass/Vol] 11.0 mg/dL Normal 7.0-17.0 [facility] Comment on above: Performed By: #### C BC #### [facility] [address] [address] [address] Narciso Amaral Urea nitrogen/Creatinine [Mass ratio] 20.0 mg/mg Normal [facility] Comment on above: Performed By: #### C BC #### [facility] [address] [address] [address] Narciso Amaral US PREG TVon 06-17-2021 [...] KRISTINA ESTRADA Date: 2021-06-17 17:29 Normal [facility] Vital Signs Date Time Vital Sign Value Performing Clinician Facility 05-31-2023 08:51-0500 Body mass index (BMI) [Ratio] 22.85 kg/m2 Lydia DOLAN Work Phone: [facility] 05-31-2023 08:51-0500 Body weight 60.38 kg Lydia DOLAN Work Phone: [facility] 05-31-2023 08:51-0500 Diastolic blood pressure 66 mm[Hg] Lydia DOLAN Work Phone: [facility] 05-31-2023 08:51-0500 Systolic blood pressure 102 mm[Hg] Lydia DOLAN Work Phone: [facility] 01-03-2023 20:48-0400 Diastolic blood pressure 66 mm[Hg] Kemal Sharma [facility] 01-03-2023 20:48-0400 Heart rate 68 /min Kemal Sharma [facility] 01-03-2023 20:48-0400 Respiratory rate 18 /min Kemal Sharma [facility] 09-10-2023 20:48-0400 SaO2% (BldA) [Mass fraction] 99 % Kemal Zachary [facility] 01-03-2023 20:48-0400 Systolic blood pressure 110 mm[Hg] Kemal Zachary [facility] 01-03-2023 19:55-0400 Hourly Rounding Kemal Zachary [facility] 01-03-2023 19:53-0400 Diastolic blood pressure 71 mm[Hg] Kemal Zachary [facility] 01-03-2023 19:53-0400 Heart rate 70 /min Kemal Zachary [facility] 01-03-2023 19:53-0400 Respiratory rate 18 /min Kemal Zachary [facility] 01-03-2023 19:53-0400 SaO2% (BldA) [Mass fraction] 99 % Kemal Zachary [facility] 01-03-2023 19:53-0400 Systolic blood pressure 106 mm[Hg] Kemal Zachary [facility] 01-03-2023 18:55-0400 Diastolic blood pressure 74 mm[Hg] Kemal Zachary [facility] 01-03-2023 18:55-0400 Heart rate 74 /min Kemal Zachary [facility] 01-03-2023 18:55-0400 Hourly Rounding Kemal Zachary [facility] 01-03-2023 18:55-0400 Respiratory rate 16 /min Kemal Zachary [facility] 01-03-2023 18:55-0400 SaO2% (BldA) [Mass fraction] 99 % Kemal Zachary [facility] 01-03-2023 18:55-0400 Systolic blood pressure 108 mm[Hg] Kemal Sharma [facility] 01-03-2023 17:55-0400 Hourly Rounding Kemal Sharma [facility] 01-03-2023 17:55-0400 Promise to Return Kemal Zachary [facility] 01-03-2023 16:55-0400 Body temperature 98.06 [degF] Kemal Sharma [facility] 08-25-2021 20:06-0400 Body weight 51.[address] TONI WATKINS [facility] Comment on above: Performed By: #### CBC #### [facility] [address] [address] [address] Narciso Amaral Encounters Encounter Date Encounter Type Care Provider Facility Start: 07-05-2023 End: 07-05-2023 ambulatory LYDIA GALLO Not Available Start: 06-17-2023 End: 06-17-2023 ambulatory TONI TRES Not Available Start: 05-31-2023 End: 05-31-2023 ambulatory LYDIA GALLO Not Available Start: 05-31-2023 End: 05-31-2023 flow sheet Lydia DOLAN Work Phone: [facility] Comment on above: Third trimester preg jordana Start: 05-06-2023 End: 05-06-2023 ambulatory TONI TRES Not Available Start: 04-28-2023 End: 04-29[facility]: 04-28-2023 End: 04-28-2023 Subsequent hospital visit by physician [facility] Start: 04-12-2023 End: 04-12-2023 ambulatory LYDIA GALLO Not Available Start: 03-08-2023 End: 03-08-2023 ambulatory TONI TRES Not Available Start: 01-03-2023 End: 01-03-2023 Emergency department patient visit Kemal Sharma Facility:[facility] [place] Start: 01-03-2023 End: 01-03-2023 Emergency department patient visit Kemal Sharma [facility] Start: 01-21-[address] TONI WATKINS Facility [...] EST Routine [facility] [address] [place] [id number] Toni Watkins, [address] [place] [address] [facility] Start: 05-31-2023 End: 05-31-2023 Patient encounter procedure 05/31/2023 12:30 PM EST [facility]ine [facility] [address] [place] [phone] [facility] Start: 05-04-2023 End: 05-04-2023 Patient encounter procedure 05/04/2023 1:30 PM EST [facility]ine [facility] [address] [place] [id number] [facility] Start: 11-24-2022 Influenza vaccination Flu vaccine (# 1) [facility] Start: 12-25-2021 Influenza vaccination Flu vaccine (# 1) [facility] Start: 2017 Screening for malign ant neoplasm of cervix Pap smear [facility] Start: 08-01-2015 DTaP/Tdap/Td vaccine (1 - Tdap) DTaP/Tdap/Td vaccine (1 - Tdap) [facility] Start: 2014 Hepatitis C screening Hepatitis C sc reen [facility] Start: 08-01-2011 HIV screening HIV screen [facility] Start: 2008 Depression Screen Depression Screen [facility] Start: 08-01-2007 HPV vaccine (1 - 2-d ose series) HPV vaccine (1 - 2-dose series) [facility] Start: 2001 COVID-19 Vaccine (1) COVID-19 Vaccin e (1) [facility] Start: 1997 Varicella vaccine (1 of 2 - 2-dose childhood series) Varicella vaccine (1 of 2 - 2-dose childhood series) [facility] Start: 01-30-1997 COVID-19 Vaccine (#1) COVID-19 Vacci ne (#1) [facility] Start: 1996 Hepatitis B vaccine (1 of 3 - 3-dose series) Hepatitis B vaccine (1 of 3 - 3-dose series) [facility] Payers Date Payer Category Payer Unknown 1996 Unknown [id number] 2.16.84 [id number] 1996 Unknown [id number] 2.16.84 0.1.308831.3.579.2.593 1996 Unknown [id number] 2.16.84 0.1.068238.3.579.2.593 1996 Unknown [id number] 2.16.84 0.1.328779.3.579.2.593 1996 Unknown [id number] 2.16.84 0.1.536906.3.579.2.593 1996 Unknown [id number] 2.16.84 0.1.137011.3.579.2.593 1996 Unknown [id number] 2.16.84 0.1.061078.3.579.2.593 1996 Unknown [id number] 2.16.84 0.1.822067.3.579.2.593 1996 Unknown [id number] 2.16.84 0.1.235171.3.579.2.593 1996 Unknown [id number] 2.16.84 0.1.518319.3.579.2.593 1996 Unknown [id number] 2.16.84 0.1.837014.3.579.2.593 1996 Unknown [id number] 2.16.84 0.1.840260.3.579.2.593 1996 Unknown [id number] 2.16.84 0.1.550053.3.579.2.593 1996 Unknown [id number] 2.16.84 0.1.025750.3.579.2.593 1996 Unknown [id number] 2.16.84 0.1.413308.3.579.2.593 1996 Unknown [id number] 2.16.84 0.1.939746.3.579.2.593 1996 Unknown [id number] 2.16.84 0.1.882386.3.579.2.593 1996 Unknown [id number] 2.16.8 40.1.494688.3.579.2.727 1996 Unknown [id number] 2.16.8 40.1.511877.3.579.2.174 1996 Unknown [id number] 2.16.84 0.1.355186.3.579.2.1259 1996 Unknown [id number] 2.16.84 0.1.668804.3.579.2.1259 1996 Unknown [id number] 2.16.84 0.1.762829.3.579.2.1259 1996 Unknown [id number] 2.16.84 0.1.715810.3.579.2.1259 1996 Unknown [id number] 2.16.840 .1.454654.3.579.2.1259 1996 Unknown [id number] 2.16.840. 1.678941.3.579.2.1259 1959 Self-pay [id number] 1959 Self-pay 1959 Unknown [id number] [id number] Unknown [id number] 2.16.84 0.1.710493.3.579.2.593 Social History Date Type Detail Facility Tobacco smoking status ARIS Tobacco smoking consumption unknown [facility] Work Phone: Start: 1996 Sex Assigned At Not on file [facility] Work Phone: Start: 04-05-2021 End: 04-07-2023 Tobacco smoking status Never smoked tobacco (finding) [facility] Tobacco smoking status Never [facility] Start: 04-20-2023 Sex Assigned At Female [facility] Start: 04-07-2023 Tobacco use and exposure Smokeless tobacco non-user [facility] Start: 04-20-2023 Alcohol intake Lifetime non-d jay (finding) [facility] Start: 04-20-2023 History of Social function [facility] Start: 11-12-2022 [employer] NEGATED: Highlighted rowStart: NINF History of tobacco use Passive smoker [facility] Functional Status Date Assessment Result Facility 01-03-2023 Functional Status N/A [facility] History of Present illness Narrative 05-31-2023 MAGDALENO [...] and states received a steroid while in [place] for shortened cervix. Pt to have nst [...] of: MAGDALENO Garsia documented in this encounter [facility] Discharge instructions 01-03-2023 Note Date & Type Note Facility 01-03-2023 Hospital Discharg e instructions Patient Education 01/03/2023 20:50:05 Morning Sickness, [id number]-[id number] Morning Sickness Morning sickness is when you [...] Follow these instructions at home: Medicines Take [id number] and prescription medicines only as told by [...] provider. Document Revised: 11/25/2020 Document Reviewed: 11/04/2020 [employer] Patient Education 2022 [employer] Follow Up Care 01/03/2023 16:18:17 With:Toni WATKINS Address: [address] , [place] [address]- Business (1) When:01/06/2023 20:40:46 [facility] Evaluation + Plan note 01-03-2023 Note Date [...] discharged home with instructions to follow with [facility] and is to return to the ED with any new or worsening symptoms. Patient voices understanding is agreeable to plan [facility] Evaluation note Note Date & Type Note Facility Evaluation note Diagnosis Third trimester state, incidental documented in this encounter [facility] Hospital course Narrative Note Date & Type Note Facility Hospital course Narrative No data available for this section [facility] Progress note Note Date & Type Note Facility Progress note No data available for this section [facility] Summary Purpose Family History No Family History [...] AUTHOR AUTHOR'S ORGANIZ ATION 01/07/2023 Fabian Renner [facility] DATE CREATED AUTHOR AUTHOR'S ORGANIZ ATION 04/29/2023 Nancy Dekalb Ho [facility] DATE CREATED AUTHOR AUTHOR'S ORGANIZ ATION 07/05/2023 [facility] EPIC Patient Care team informatio n (unrecognized section and content) Personnel Name: JASMIN BENSONGloria Address: Address: [address] [place] [address] Dr. Blake, [facility] Reason for Visit (unrecogniz ed section and [...] BE BASED ON THE PRIMARY CLINICAL RECORDS. [employer] provides no warranty or guarantee of the accuracy or completeness of information in this document.
[2023-07-14 09:03] VITALS: BP 103/72; PULSE 76
== END 2023-07-14 09:28 | disposition home or self-care (01) ==
LOC: FBC 08:40 → US 08:40
PROVIDERS: Visit Provider Obstetrics & Gynecology
DX: O43.119 Circumvallate placenta, unspecified trimester (principal); Z36.86 Encounter for antenatal screening for cervical length; Z3A.36 36 weeks gestation of pregnancy
CPT/HCPCS: 76817; 76818; 87081

== ENCOUNTER 2023-07-14 11:10 | Inpatient (IN) | payer BC, SELFPAY ==
[2023-07-14] VITALS (32 sets, daily range): BP systolic 99–133; BP diastolic 60–83; PULSE 77–106; TEMP 36.6–36.9
--- OUTSIDE RECORDS SUMMARY | 2023-07-14 11:33 | XMS_ITS | CCD ---
Author Organization [facility] Care Team Providers Care Senior Mainframe Programmer Analyst Name Role Phone Unavailable Primary Care Provider [...] Unavaila ble TRES, DR MUÑOZ Attending Unavailable [place], DR GREG Smith Consulting Unavailable TRES, DR [...] Kelly Consulting Unavailable PATEL, WINCHA Consulting Unavailable TRES, DR MUÑOZ Attending Unavailable [...] Admitting Unavailable Gloria CASTELLANOS Primary Care Physician [phone] Kemal Sharma Attending Unavailable Unavailable Primary Care [...] Drug Allergy 2 [facility] Rep[facility] (3 sources) Amoxicillin; Translations: [amoxicillin] Drug Allergy 3 rash [facility] [place] (1 source) Penicillins Propensity to adverse reactions to drug 3 Rash [facility] (2 sources) Penicillins Drug Allergy 3 [...] hours., # 16 tab(s), Refills(s) 1, Pharmacy: [id number], 168, cm, 04/09/20 15:23:00 EST, Height/Length Dosing, 50.7, kg, 04/09/20 15:23:00 EST, Weight Dosing Start Date: 04/09/20 Status: Ordered Zofran ODT 4 mg Tab-Dis (1 source) Start: 06-09-2021 take 1 tablet by mouth every six hours as needed for nausea Zofran ODT 4 mg Tab-Dis 4 mg = 1 tab(s), Oral, q6hr, PRN Nausea/Vomiting, # 12 tab(s), Refills(s) 0, Pharmacy: [facility] [place] [address], 165.1, cm, 06/09/21 2:43:00 EST, Height/Length Dosing, [...] applicable or unspecified; Translations: [MAT CARE OTH ND FTL GRTH 3RD TM UNS] Onset: 12-31-2021 [...] Differentialon 04-28-2023 Basophils (Bld) [#/Vol] 0.03 10*3/uL [facility] Basophils/100 WBC (Bld) 1 % 0 - 2 % [facility] Eosinophils (Bld) [#/Vol] 0.04 10*3/uL [facility] Eosinophils/100 WBC (Bld) 1 % 0 - 5 % [facility] Erythrocyte distribution width (RBC) [Ratio] 11.8 % Low 12.1 - 15.2 % [facility] Hematocrit (Bld) [Volume fraction] 35.4 % Low 36.0 - 46.0 % [facility] Hemoglobin (Bld) [Mass/Vol] 11.9 g/dL Low 12.0 - 16.0 g/dL [facility] Immature granulocytes (Bld) [#/Vol] 0.04 10*3/uL [facility] Immature granulocytes/100 WBC (Bld) 1 % 0 - 5 % [facility] Interpretation and review of laboratory results Abnormal [facility] Lymphocytes/100 WBC (Bld) 24 % 15 - 40 % [facility] Lymphocytes/100 WBC (Bld) 1.53 % [facility] MCH (RBC) [Entitic mass] 32.9 pg 26.0 - 34.0 pg [facility] MCHC (RBC) [Mass/Vol] 33.6 g/dL 31.0 - 37.0 g/dL [facility] MCV (RBC) [Entitic vol] 97.8 fL 80.0 - 100.0 fL [facility] Monocytes/100 WBC (Bld) 6 % 4 [...] [facility] WBC other (Bld) [#/Vol] 6.4 [facility] CBC with Diffon 04-28-2023 Abs. Basophil 0.03 k/uL Normal 0.00-0.20 [facility] Comment on above: Performed By: #### C DP, GLUSC #### [facility] [address] [place] [address] Artificial Flowers Starcher: Greg Castillo MD Abs.Imm.Granulocyte 0.04 k/uL Normal 0.00-0.30 [facility] Comment on above: Performed By: #### C DP, GLUSC #### [facility] [address] [place] [address] Artificial Flowers Starcher: Greg Castillo MD Abs.Neutrophil (Seg) 4.37 k/uL Normal 2.5-7.0 [facility] Comment on above: Performed By: #### C DP, GLUSC #### [facility] [address] [place] [address] Artificial Flowers Starcher: Greg Castillo MD Basophils/100 WBC (Bld) 1 % Normal 0-2 [facility] Comment on above: Performed By: #### C DP, GLUSC #### [facility] [address] [place] [address] Artificial Flowers Starcher: Greg Castillo MD Eosinophils (Bld) [#/Vol] 0.04 10*3/uL Normal 0.00-0.40 [facility] Comment on above: Performed By: #### C DP, GLUSC #### [facility] [address] [place] [address] Artificial Flowers Starcher: Greg Castillo MD Eosinophils/100 WBC (Bld) 1 % Normal 0-5 [facility] Comment on above: Performed By: #### C DP, GLUSC #### [facility] [address] [place] [phone] Artificial Flowers Starcher: Greg Castillo MD Erythrocyte distribution width (RBC) [Ratio] 11.8 % Low 12.1-15.2 [facility] Comment on above: Performed By: #### C DP, GLUSC #### [facility] [address] [place] [phone] Artificial Flowers Starcher: Greg Castillo MD Hematocrit (Bld) [Volume fraction] 35.4 % Low 36.0-46.0 [facility] Comment on above: Performed By: #### C DP, GLUSC #### [facility] [address] [place] [phone] Artificial Flowers Starcher: Greg Castillo MD Hemoglobin (Bld) [Mass/Vol] 11.9 g/dL Low 12.0-16.0 [facility] Comment on above: Performed By: #### C DP, GLUSC #### [facility] [address] [place] [phone] Artificial Flowers Starcher: Greg Castillo MD Immature granulocytes/100 WBC (Bld) 1 % Normal 0-5 [facility] Comment on above: Performed By: #### C DP, GLUSC #### [facility] [address] [place] [address] Artificial Flowers Starcher: Greg Castillo MD Lymphocytes (Bld) [#/Vol] 1.53 10*3/uL Normal 1.00-4.80 [facility] Comment on above: Performed By: #### C DP, GLUSC #### [facility] [address] [place] [address] Artificial Flowers Starcher: Greg Castillo MD Lymphocytes/100 WBC (Bld) 24 % Normal 15-40 [facility] Comment on above: Performed By: #### C DP, GLUSC #### [facility] [address] [place] [address] Artificial Flowers Starcher: Greg Castillo MD MCH (RBC) [Entitic mass] 32.9 pg Normal 26.0-34.0 [facility] Comment on above: Performed By: #### C DP, GLUSC #### [facility] [address] [place] [phone] Artificial Flowers Starcher: Greg Castillo MD MCHC (RBC) [Mass/Vol] 33.6 g/dL Normal 31.0-37.0 [facility] Comment on above: Performed By: #### C DP, GLUSC #### [facility] [address] [place] [address] Artificial Flowers Starcher: Greg Castillo MD MCV (RBC) [Entitic vol] 97.8 fL Normal 80.0-100.0 [facility] Comment on above: Performed By: #### C DP, GLUSC #### [facility] [address] [place] [phone] Artificial Flowers Starcher: Greg Castillo MD Monocytes (Bld) [#/Vol] 0.41 10*3/uL Normal 0.00-1.00 [facility] Comment on above: Performed By: #### C DP, GLUSC #### [facility] [address] [place] [address] Artificial Flowers Starcher: Greg Castillo MD Monocytes/100 WBC (Bld) 6 % Normal 4-8 [facility] Comment on above: Performed By: #### C DP, GLUSC #### [facility] [address] [place] [phone] Artificial Flowers Starcher: Greg Castillo MD Neutrophil (Seg) 67 % Normal 47-75 [facility] Comment on above: Performed By: #### C DP, GLUSC #### [facility] [address] [place], [place] [phone] ([phone] Artificial Flowers Starcher: Greg Castillo MD Platelet mean volume (Bld) [Entitic vol] 9.5 fL Normal 6.0-12.0 [facility] Comment on above: Performed By: #### C DP, GLUSC #### [facility] [address] [place], [place] [phone] ([phone] Artificial Flowers Starcher: Greg Castillo MD Platelets (Bld) [#/Vol] 155 10*3/uL Normal 140-450 [facility] Comment on above: Performed By: #### C DP, GLUSC #### [facility] [address] [place], [place] [phone] ([phone] Artificial Flowers Starcher: Greg Castillo MD RBC (Bld) [#/Vol] 3.62 10*6/uL Low 4.00-5.20 [facility] Comment on above: Performed By: #### C DP, GLUSC #### [facility] [address] [place], [place] [phone] (148) Artificial Flowers Starcher: Greg Castillo MD WBC (Bld) [#/Vol] 6.4 10*3/uL Normal 3.5-11.0 [facility] Comment on above: Performed By: #### C DP, GLUSC #### [facility] [address] [place], [place] [phone] ([phone] Artificial Flowers Starcher: Greg Castillo MD Glucose David Scr 50gon 2023 Glucose [Mass/Vol] 108 mg/dL Normal 70-135 [facility] Comment on above: Performed By: #### C DP, GLUSC #### [facility] [address] [place] [address] Artificial Flowers Starcher: Greg Castillo MD Glu Administered via Glucola Normal [facility] Comment on above: Performed By: #### C DP, GLUSC #### [facility] [address] [place] [address] Artificial Flowers Starcher: Greg Castillo MD Glucose tolerance, 1 houron 04-28-2023 GLU ADMN Glucola [facility] Glucose 1 Hr post 50 g glucose PO [Mass/Vol] 108 mg/dL 70 - 135 mg/dL [facility] Discharge Instructionson Discharge Instructions [id number]#1.00CD:127 Normal [facility] Auto Diffon 01-03-2023 Basophils/100 WBC (Bld) 0.5 % Normal 0.0-2.0 [facility] Comment on above: Order Comment: Order Added by Discern Expert. Performed By: #### 2 [id number], [id number], [id number], [id number] #### [facility] [address] [place] [address] Basophils/Leukocytes Auto (Bld) [Pure # fraction] 0.0 E9/L Normal 0.0-0.2 [facility] Comment on above: Order Comment: Order Added by Discern Expert. Performed By: #### 2 776026, 4487356, 48665352, [id number] #### [facility] [address] [place] [address] Eosinophils/100 WBC (Bld) 0.3 % Normal 0.0-8.0 [facility] Comment on above: Order Comment: Order Added by Discern Expert. Performed By: #### 2 964904, 6527246, 00538155, 9979646 #### [facility] [address] [place] [address] Eosinophils/Leukocyte s Auto (Bld) [Pure # fraction] 0.0 E9/L Normal 0.0-0.5 [facility] Comment on above: Order Comment: Order Added by Discern Expert. Performed By: #### 2 277474, 0016023, 44040176, 0275976 #### [facility] [address] [place] [address] Lymphocytes/100 WBC (Bld) 29.1 % Normal 14.0-50.0 [facility] Comment on above: Order Comment: Order Added by Discern Expert. Performed By: #### 2 414422, 7459026, 50369897, 1978505 #### [facility] [address] [place] [address] Lymphocytes/Leukocyte s Auto (Bld) [Pure # fraction] 1.7 E9/L Normal 1.0-4.0 [facility] Comment on above: Order Comment: Order Added by Kya Expert. Performed By: #### 2 826796, 8992817, 78506987, 4216829 #### [facility] [address] [place] [address] Monocytes/100 WBC (Bld) 5.1 % Normal 4.0-14.0 [facility] Comment on above: Order Comment: Order Added by Kya Expert. Performed By: #### 2 610628, 4877355, 67385483, 2698709 #### [facility] [address] [place] [address] Monocytes/Leukocytes Auto (Bld) [Pure # fraction] 0.3 E9/L Normal 0.2-1.0 [facility] Comment on above: Order Comment: Order Added by Discern Expert. Performed By: #### 2 063218, 9495715, 85709108, 5864701 #### [facility] [address] [place] [address] Neutrophils/100 WBC (Bld) 65.0 % Normal 36.0-75.0 [facility] Comment on above: Order Comment: Order Added by Kya Expert. Performed By: #### 2 542995, 9761098, 97549955, 2056922 #### [facility] [address] [place] [address] Neutrophils/Leukocyte s Auto (Bld) [Pure # fraction] 3.8 E9/L Normal 2.0-7.5 [facility] Comment on above: Order Comment: Order Added by Discern Expert. Performed By: #### 2 296189, 8720380, 93937744, 2405430 #### [facility] [address] [place] [address] BMPon 01-03-2023 Creatinine [Mass/Vol] 0.5 mg/dL Normal 0.5-1.3 [facility] Comment on above: Performed By: #### 2 786673, 4563827, 41502923, 3243685 #### [facility] [address] [place] [address] Urea nitrogen [Mass/Vol] 8 mg/dL Normal 5-21 [facility] Comment on above: Performed By: #### 2 770086, 7577879, 82582026, 6974101 #### [facility] [address] [place] [address] Urea nitrogen/Creatinine [Mass ratio] 16 No Units Normal 10-20 [facility] Comment on above: Performed By: #### 2 710649, 0272621, 78547423, 8494477 #### [facility] [address] [place] [address] Anion gap [Moles/Vol] 7 mmol/L Normal 6-16 [facility] Comment on above: Performed By: #### 2 010798, 6849431, 90194092, 9248152 #### [facility] [address] [place] [address] Calcium [Mass/Vol] 9.3 mg/dL Normal 8.9-11.1 [facility] Comment on above: Performed By: #### 2 291444, 6125844, 61375787, 5506810 #### [facility] [address] [place] [address] Chloride [Moles/Vol] 105 mmol/L Normal 101-111 [facility] Comment on above: Performed By: #### 2 068415, 4875040, 95570297, 2317075 #### [facility] [address] [place] [address] CO2 [Moles/Vol] 24 mmol/L Normal 21-31 [facility] Comment on above: Performed By: #### 2 193103, 3965642, 17513039, 1511184 #### [facility] [address] [place] [address] Glucose [Mass/Vol] 108 mg/dL Normal 55-199 [facility] Comment on above: Result Comment: If t his glucose result represents a fasting glucose, interpretation should refer to the following reference range: 55-99 mg/dL Performed By: #### 2 798052, 8145174, 18814230, 5592741 #### [facility] [address] [place] [address] Potassium [Moles/Vol] 3.4 mmol/L Low 3.5-5.3 [facility] Comment on above: Performed By: #### 2 221537, 3765182, 84924784, 9600716 #### [facility] [address] [place] [address] Sodium [Moles/Vol] 133 mmol/L Low 135-145 [facility] Comment on above: Performed By: #### 2 587135, 5272087, 52169446, 5358379 #### [facility] [address] [place] [address] CBC w/ Auto Diffon 3 Erythrocyte distribution width (RBC) [Ratio] 12.5 % Normal 10.9-14.2 [facility] Comment on above: Performed By: #### 2 944392, 1529592, 57591001, 7036572 #### [facility] [address] [place] [address] Hematocrit (Bld) [Volume fraction] 39.8 % Normal 34.0-46.0 [facility] Comment on above: Performed By: #### 2 947147, 3435525, 30387039, 6768937 #### [facility] [address] [place] [address] Hemoglobin (Bld) [Mass/Vol] 14.2 g/dL Normal 12.0-16.0 [facility] Comment on above: Performed By: #### 2 753644, 7062893, 29373696, 5540450 #### [facility] [address] [place] [address] MCH (RBC) [Entitic mass] 31.7 pg Normal 27.0-34.0 [facility] Comment on above: Performed By: #### 2 316231, 3526718, 90945288, 5950273 #### [facility] [address] [place] [address] MCHC (RBC) [Mass/Vol] 35.6 g/dL Normal 31.4-36.0 [facility] Comment on above: Performed By: #### 2 373389, 8011488, 63545191, 3474925 #### [facility] [address] [place] [address] MCV (RBC) [Entitic vol] 89.0 fL Normal 80.0-100.0 [facility] Comment on above: Performed By: #### 2 190063, 6650025, 90225076, 2617031 #### [facility] [address] [place] [address] Platelet mean volume (Bld) [Entitic vol] 7.6 fL Normal 6.4-10.8 [facility] Comment on above: Performed By: #### 2 557886, 9650299, 30879719, 0981147 #### [facility] [address] [place] [address] Platelets (Bld) [#/Vol] 170.0 E9/L Normal 150.0-500.0 [facility] Comment on above: Performed By: #### 2 081952, 8304804, 20926465, 7762283 #### [facility] [address] [place] [address] RBC (Bld) [#/Vol] 4.5 E12/L Normal 4.3-5.9 [facility] Comment on above: Performed By: #### 2 160556, 7161668, 78598371, 1400649 #### [facility] [address] [place] [address] WBC corrected for nucl RBC Auto (Bld) [#/Vol] 5.8 E9/L Normal 4.0-11.0 [facility] Comment on above: Performed By: #### 2 446172, 6262798, 69443755, 1001828 #### [facility] [address] [place] [address] CHEMISTRYOrdered By: SYSTEM SYSTEM on 01-03-2023 Anion gap [Moles/Vol] 7 mmol/L Normal 6 - 16 mEq/L [facility] Remisol Calcium [Mass/Vol] 9.3 mg/dL Normal 8.9 [...] 8 mg/dL Normal 5 - 21 mg/dL [facility] Remisol Urea nitrogen/Creatinine [Mass ratio] 16 mg/mg Normal 10 - 20 FT Remisol Consent for Treatmenton 12-25 Consent for Treatment [id number] #[id number]:127 Normal [facility] ED Clinical Summaryon 2022 ED Clinical Summary [address] [address] ED Clinical Summary Person Information Name: GRACIELA OLIVAREZ [place] Age: 27 Years : 1995 Sex: Female Language: Guyanese PCP: Gloria CASTELLANOS CNP Marital Status: Visit [...] 01/03/2023 20:50:04 01/03/2023 20:50:04 01/03/2023 20:50:04 ADDRESS: [address] [place] [id number] PHYS DOC NOTES: MEDICAL INFORMATION: Prescriptions Given: Medications to Continue with No Changes Other Medications ondansetron (Zofran ODT 4 mg Tab-Dis) 1 Tablets By Mouth every 6 hours as needed Nausea/Vomiting. Refills: 0. valacyclovir (valacyclovir 1 g Tab) take 2 tab at first sign of cold sore repeat in 12 hours.. Refills: 1. PATIENT EDUCATION INFORMATION: Instructions: Morning Sickness, Jsjc-sn-Brno Follow up: With: Address: When: Toni TRES [facility], [address] [place] [address] [place] [address] Business (1) In 3 days 01/06/2023 DIAGNOSIS: Nausea/vomiting in Normal [facility] ED Note-Physicianon 01-04-20 ED Note-Physician [...] she is dehydrated. Patient is followed by BEADWORKER, Dr. Watkins, has had an ultrasound which [...] discharged home with instructions to follow with BEADWORKER and is to return to the ED [...] Toni WATKINS In 3 days 01/06/[address] [place] [address]- Business (1) Additional Instructions: Patient Education Morning Sickness, Yrmy-fb-Dvwt Attestation Patient was treated and evaluated by the Physician Surgery Teacher. The attending physician was in the [...] is unknown (more content not included)... Normal [facility] Comment on above: Result Comment: [...] these instructions at home: Medicines ? Take kbkn-skl-nczdnlz and prescription medicines only as told by [...] Reviewed: 11/04/2020 Elsevier Patient Education ? 2022 [employer]. Normal [facility] ED Patient Summaryon 023 ED Patient Summary [address] [address] Patient Discharge Instructions Person Information Name: GRACIELA OLIVAREZ Age: 27 Years Arrival Date: 01/03/2023 16:15:39 Discharge Diagnosis: Nausea/vomiting in Primary Care Physician: Gloria CASTELLANOS CNP Provider Information Primary Provider: Kemal Sharma DO Advanced Fabric Worker Foreman:Velia Correa PA-C The exam and treatment you received in the Emergency Department were for an urgent problem and are not intended as complete care. It is important that you follow up with a doctor, nurse practitioner, or physician?s funeral assistant for ongoing care. If your symptoms [...] Follow-up Instructions: With: Address: When: Toni WATKINS [facility], [address] [place] [address] [place] [address] Business (1) In 3 days 01/06/2023 In the event that this physician does not participate in your insurance network, please consult with your insurance company to find a nearby participating provider. Patient Education Materials: Morning Sickness, Axzz-zy-Yxpw A MESSAGE TO ALL PATIENTS REGARDING OPIOIDS PRESCRIPTION OPIOIDS: WHAT YOU NEED TO KNOW Prescription opioids can be used to help relieve wlsfykeh-mb-cxnyof pain and are often prescribed following a [...] struggling with addiction, tell your health care professionals and ask for guidance or call [facility]?S National [employer] (more content not included)... Normal [facility] HEMATOLOGYOrdered By: SYSTEM SYSTEM on [...] 35.6 g/dL Normal 31.4 - 36.0 gm/dL [facility] HemeAutoSS MCV (RBC) [Entitic vol] 89.0 fL Normal 80.0 - 100.0 fL FT HemeAutoSS Platelet mean volume (Bld) [Entitic vol] 7.6 fL Normal 6.4 - 10.8 fL [facility] HemeAutoSS Platelets (Bld) [#/Vol] 170.0 E9/L Normal 150.0 - 500.0 E9/L FT HemeAutoSS RBC (Bld) [#/Vol] 4.5 E12/L Normal 4.3 - 5.9 E12/L [facility] HemeAutoSS WBC corrected for nucl RBC Auto (Bld) [#/Vol] 5.8 E9/L Normal 4.0 - 11.0 E9/L [facility] HemeAutoSS UA With Cult Reflexon 2022 Bilirubin Ql (U) 1+ Abnormal Negative [facility] Comment on above: Performed By: #### 1 [id number] #### [facility] [address] [place] [address] Clarity (U) CLEAR Normal Clear [facility] Comment on above: Performed By: #### 1 [id number] #### [facility] [address] [place] [address] Color (U) YELLOW Normal Yellow [facility] Comment on above: Performed By: #### 1 [id number] #### [facility] [address] [place] [address] Epithelial cells.squamous LM.HPF (Urine sed) [#/Area] 3-4 Normal 0-2 [facility] Comment on above: Performed By: #### 1 [id number] #### [facility] [address] [place] [address] Glucose Test strip (U) [Mass/Vol] Negative Normal Negative [facility] Comment on above: Performed By: #### 1 [id number] #### [facility] [address] [place] [address] Hemoglobin Ql (U) 2+ Abnormal Negative [facility] Comment on above: Performed By: #### 1 [id number] #### [facility] [address] [place] [address] Ketones (U) [Mass/Vol] 2+ Abnormal Negative [facility] Comment on above: Performed By: #### 1 [id number] #### [facility] [address] [place] [address] [place].plasma/Lithiu m.RBC (Bld) [Mass ratio] 0-3 Normal 0-3 [facility] Comment on above: Performed By: #### 1 [id number] #### [facility] [address] [place] [address] Mucus Ql (Urine sed) 2+ Normal [facility] Comment on above: Performed By: #### 1 [id number] #### [facility] [address] [place] [address] Nitrite Ql (U) Negative Normal Negative [facility] Comment on above: Performed By: #### 1 [id number] #### [facility] [address] [place] [address] pH (U) 6.0 [pH] Invalid Interpretation Code 5.0-9.0 [facility] Comment on above: Performed By: #### 1 [id number] #### [facility] [address] [place] [address] Protein (U) [Mass/Vol] 1+ Abnormal Negative [facility] Comment on above: Performed By: #### 1 [id number] #### [facility] [address] [place] [address] Specific gravity (U) [Rel density] >=1.030 Invalid Interpretation Code 1.005-1.030 [facility] Comment on above: Performed By: #### 1 [id number] #### [facility] [address] [place] [address] Type of Urine collection method Clean Catch Normal [facility] Comment on above: Performed By: #### 1 [id number] #### [facility] [address] [place] [address] Urobilinogen Qn (U) 1.0 {Maggy'U}/dL Normal 0.0-1.0 [facility] Comment on above: Performed By: #### 1 [id number] #### [facility] [address] [place] [address] WBC Auto Ql (U) Negative Normal Negative [facility] Comment on above: Performed By: #### 1 [id number] #### [facility] [address] [place] [address] WBC LM.HPF (Urine sed) [#/Area] 0-5 Normal 0-5 [facility] Comment on above: Performed By: #### 1 [id number] #### [facility] [address] [id number] URINALYSISOrdered By: Dianne Ortiz on 01-03-2023 Bilirubin [...] Interpretation Code Negative [facility] UA Auto SS [place].plasma/Lithiu m.RBC (Bld) [Mass ratio] 0-3 /HPF Normal [...] [facility] UA Auto SS Urobilinogen Qn (U) 1.4046438 {Maggy'U}/dL Normal 0.0 - 1.0 EU/dL [facility] UA Auto SS WBC Auto Ql (U) Negative (01/03/23 5:04 PM) Normal Negative [facility] UA Auto SS WBC LM.HPF (Urine sed) [#/Area] 0-5 /HPF Normal 0-5/HPF [facility] UA Auto SS eGFRon 01-03-2023 GFR/1.73 sq M.predicted among non-blacks MDRD (S/P/Bld) [Vol rate/Area] 133 mL/min/1.73 m2 Normal >=59 [facility] Comment on above: Order Comment: Order added by Discern Expert. Result Comment: Rotary Drill Rig Operator diya kidney disease could be indicated at eGFR's of less than 60 mL/min/1.73m2. Kidney failure is indicated at less than 15 mL/min/1.73m2. Performed By: #### 2 [id number], [id number], [id number] #### [facility] [address] [place] [address] CULTURE URINEon 01-10-2022 CULTURE URINE Culture Observations: MODERATE GROWTH OF MIXED GENITAL RIC. NO POTENTIAL PATHOGENS SEEN. Normal [facility] Comment on above: Performed By: #### U RCX #### [facility] [address] [address] [address] Narciso Amaral UA (CLEAN/CATCH) [employer]AT CANVAS MAKER AND INSTALLER/MICRO I F IND.on 01-10-2022 Bilirubin Ql (U) Negative Normal NEGATIVE [facility] Comment on above: Performed By: #### U MICRO, UACSIND #### [facility] [address] [address] [address] Narciso Amaral Clarity (U) CLEAR Normal CLEAR [facility] Comment on above: Performed By: #### U MICRO, UACSIND #### [facility] [address] [address] [address] Narciso Amaral Color (U) LT. YELLOW Normal YELLOW [facility] Comment on above: Performed By: #### U MICRO, UACSIND #### [facility] [address] [address] [address] Narciso Amaral Glucose Ql (U) Negative Normal NEGATIVE [facility] Comment on above: Performed By: #### U MICRO, UACSIND #### [facility] [address] [address] [address] Narciso Amaral Hemoglobin Ql (U) LARGE Abnormal NEGATIVE [facility] Comment on above: Performed By: #### U MICRO, UACSIND #### [facility] [address] [address] [address] Narciso Amaral Ketones Ql (U) Negative Normal NEGATIVE [facility] Comment on above: Performed By: #### U MICRO, UACSIND #### [facility] [address] [place] [address] Dr. Narciso Amaral LEUKOCYTES TRACE Abnormal NEGATIVE [facility] Comment on above: Performed By: #### U MICRO, UACSIND #### [facility] [address] [place] [address] Dr. Narciso Amaral Nitrite Ql (U) Negative Normal NEGATIVE [facility] Comment on above: Performed By: #### U MICRO, UACSIND #### [facility] [address] [place] [address] Dr. Narciso Amaral pH (U) 6.0 [pH] Normal 5-9 [facility] Comment on above: Performed By: #### U MICRO, UACSIND #### [facility] [address] [place] [address] Dr. Narciso Amaral SPEC GRAVITY <=1.005 Abnormal 1.005-<=1.025 [facility] Comment on above: Performed By: #### U MICRO, UACSIND #### [facility] [address] [place] [address] Dr. Narciso Amaral UA PROTEIN Negative Normal NEGATIVE/ TRACE [facility] Comment on above: Performed By: #### U MICRO, UACSIND #### [facility] [address] [place] [address] Dr. Narciso Amaral UR MICRO IND INDICATED Normal [facility] Comment on above: Performed By: #### U MICRO, UACSIND #### [facility] [address] [place] [address] Dr. Narciso Amaral Urobilinogen Qn (U) 0.2 {Maggy'U}/dL Normal 0.2 - 1. 0 [facility] Comment on above: Performed By: #### U MICRO, UACSIND #### [facility] [address] [place] [address] Dr. Narciso Amaral URINE MICROSCOPIC ONLYon BACTERIA SMALL Abnormal NONE SEEN [facility] Comment on above: Performed By: #### U MICRO, UACSIND #### [facility] [address] [place] [address] Dr. Narciso Amaral Bacteria identified Cx Nom (U) INDICATED Normal [facility] Comment on above: Performed By: #### U MICRO, UACSIND #### [facility] [address] [place] [address] Dr. Narciso Amaral CAST NONE SEEN Normal NONE SEEN [facility] Comment on above: Performed By: #### U MICRO, UACSIND #### [facility] [address] [address] [address] Narciso Amaral Crystals LM Nom (Urine sed) NONE SEEN Normal NONE SEEN [facility] Comment on above: Performed By: #### U MICRO, UACSIND #### [facility] [address] [place] [address] Dr. Narciso Amaral Epithelial cells LM Ql (Urine sed) FEW Abnormal NONE SEEN /RARE [facility] Comment on above: Performed By: #### U MICRO, UACSIND #### [facility] [address] [place] [address] Dr. Narciso Amaral MUCOUS NONE SEEN Normal NONE SEEN [facility] Comment on above: Performed By: #### U MICRO, UACSIND #### [facility] [address] [place] [address] Dr. Narciso Amaral RBC 5-10 Abnormal 0-2 [facility] Comment on above: Performed By: #### U MICRO, UACSIND #### [facility] [address] [place] [address] Dr. Narciso Amaral WBC 0-2 Abnormal NONE SEEN [facility] Comment on above: Performed By: #### U MICRO, UACSIND #### [facility] [address] [place] [address] Dr. Narciso Amaral CBC AUTO DIFFon 01-09-2022 BASO # 0.0 103/ul Normal 0.0-0.1 [facility] Comment on above: Performed By: #### C BC #### [facility] [address] [place] [address] Dr. Narciso Amaral Basophils/100 WBC (Bld) 0.2 % Normal 0.2-2.0 [facility] Comment on above: Performed By: #### C BC #### [facility] [address] [place] [address] Dr. Narciso Amaral EO # 0.0 103/ul Normal 0.0-0.7 [facility] Comment on above: Performed By: #### C BC #### [facility] [address] [place] [address] Dr. Narciso Amaral Eosinophils/100 WBC (Bld) 0.1 % Critically low 0.9-7.0 [facility] Comment on above: Performed By: #### C BC #### [facility] [address] [place] [address] Dr. Narciso Amaral Erythrocyte distribution width (RBC) [Ratio] 12.8 % Normal 11.0-15.0 [facility] Comment on above: Performed By: #### C BC #### [facility] [address] [place] [address] Dr. Narciso Amaral Hematocrit (Bld) [Volume fraction] 30.8 % Critically low 36.0-48.0 [facility] Comment on above: Performed By: #### C BC #### [facility] [address] [place] [address] Dr. Narciso Amaral Hemoglobin (Bld) [Mass/Vol] 10.0 g/dL Critically low 12.0-16.0 [facility] Comment on above: Performed By: #### C BC #### [facility] [address] [place] [address] Dr. Narciso Amaral IG # 0.02 10e3/ul Normal 0.00-0.03 [facility] Comment on above: Performed By: #### C BC #### [facility] [address] [place] [address] Dr. Narciso Amaral IG % 0.2 % Normal 0.0-0.5 [facility] Comment on above: Performed By: #### C BC #### [facility] [address] [place] [address] Dr. Narciso Amaral LYMPH # 1.4 103/ul Normal 1.2-3.8 [facility] Comment on above: Performed By: #### C BC #### [facility] [address] [place] [address] Dr. Narciso Amaral Lymphocytes/100 WBC (Bld) 14.0 % Critically low 20.5-60.0 [facility] Comment on above: Performed By: #### C BC #### [facility] [address] [place] [address] Dr. Narciso Amaral MANUAL DIFF REQ NO Normal [facility] Comment on above: Performed By: #### C BC #### [facility] [address] [place] [address] Dr. Narciso Amaral MCH (RBC) [Entitic mass] 31.7 pg Normal 26.7-34.0 [facility] Comment on above: Performed By: #### C BC #### [facility] [address] [place] [address] Dr. Narciso Amaral MCHC (RBC) [Mass/Vol] 32.5 g/dL Normal 29.9-35.2 [facility] Comment on above: Performed By: #### C BC #### [facility] [address] [place] [address] Dr. Narciso Amaral MCV (RBC) [Entitic vol] 97.8 fL Normal 81.0-99.0 [facility] Comment on above: Performed By: #### C BC #### [facility] [address] [place] [address] Dr. Narciso Amaral MONO # 0.8 103/ul Normal 0.3-0.8 [facility] Comment on above: Performed By: #### C BC #### [facility] [address] [place] [address] Dr. Narciso Amaral Monocytes/100 WBC (Bld) 8.2 % Normal 1.7-12.0 [facility] Comment on above: Performed By: #### C BC #### [facility] [address] [place] [address] Dr. Narciso Amaral NEUT # 7.9 103/ul Critically high 1.4-6.5 [facility] Comment on above: Performed By: #### C BC #### [facility] [address] [place] [address] Dr. Narciso Amaral Neutrophils/100 WBC (Bld) 77.3 % Critically high 43.0-75.0 [facility] Comment on above: Performed By: #### C BC #### [facility] [address] [place] [address] Dr. Narciso Amaral Platelet mean volume (Bld) [Entitic vol] 9.9 fL Normal 9.5-13.5 [facility] Comment on above: Performed By: #### C BC #### [facility] [address] [address] [address] Narciso Amaral PLT 143 103/ul Critically low 150-450 [facility] Comment on above: Performed By: #### C BC #### [facility] [address] [address] [address] Narciso Amaral RBC 3.15 106/ul Critically low 4.20-5.40 [facility] Comment on above: Performed By: #### C BC #### [facility] [address] [place] [address] Dr. Narciso Amaral WBC 10.2 103/ul Normal 4.0-11.0 [facility] Comment on above: Performed By: #### C BC #### [facility] [address] [place] [address] Dr. Narciso Amaral CBC AUTO DIFFon 01-08-2022 BASO # 0.0 103/ul Normal 0.0-0.1 [facility] Comment on above: Performed By: #### C BC #### [facility] [address] [place] [address] Dr. Narciso Amaral Basophils/100 WBC (Bld) 0.3 % Normal 0.2-2.0 [facility] Comment on above: Performed By: #### C BC #### [facility] [address] [place] [address] Dr. Narciso Amaral EO # 0.0 103/ul Normal 0.0-0.7 [facility] Comment on above: Performed By: #### C BC #### [facility] [address] [place] [address] Dr. Narciso Amaral Eosinophils/100 WBC (Bld) 0.4 % Critically low 0.9-7.0 [facility] Comment on above: Performed By: #### C BC #### [facility] [address] [place] [address] Dr. Narciso Amaral Erythrocyte distribution width (RBC) [Ratio] 12.7 % Normal 11.0-15.0 [facility] Comment on above: Performed By: #### C BC #### [facility] [address] [place] [address] Dr. Narciso Amaral Hematocrit (Bld) [Volume fraction] 38.0 % Normal 36.0-48.0 [facility] Comment on above: Performed By: #### C BC #### [facility] [address] [place] [address] Dr. Narciso Amaral Hemoglobin (Bld) [Mass/Vol] 12.5 g/dL Normal 12.0-16.0 [facility] Comment on above: Performed By: #### C BC #### [facility] [address] [place] [address] Dr. Narciso Amaral IG # 0.03 10e3/ul Normal 0.00-0.03 [facility] Comment on above: Performed By: #### C BC #### [facility] [address] [place] [address] Dr. Narciso Amaral IG % 0.4 % Normal 0.0-0.5 [facility] Comment on above: Performed By: #### C BC #### [facility] [address] [place] [address] Dr. Narciso Amaral LYMPH # 1.3 103/ul Normal 1.2-3.8 [facility] Comment on above: Performed By: #### C BC #### [facility] [address] [place] [address] Dr. Narciso Amaral Lymphocytes/100 WBC (Bld) 17.6 % Critically low 20.5-60.0 [facility] Comment on above: Performed By: #### C BC #### [facility] [address] [place] [address] Dr. Narciso Amaral MANUAL DIFF REQ NO Normal [facility] Comment on above: Performed By: #### C BC #### [facility] [address] [place] [address] Dr. Narciso Amaral MCH (RBC) [Entitic mass] 31.6 pg Normal 26.7-34.0 [facility] Comment on above: Performed By: #### C BC #### [facility] [address] [place] [address] Dr. Narciso Amaral MCHC (RBC) [Mass/Vol] 32.9 g/dL Normal 29.9-35.2 [facility] Comment on above: Performed By: #### C BC #### [facility] [address] [place] [address] Dr. Narciso Amaral MCV (RBC) [Entitic vol] 96.0 fL Normal 81.0-99.0 [facility] Comment on above: Performed By: #### C BC #### [facility] [address] [place] [address] Dr. Narciso Amaral MONO # 0.5 103/ul Normal 0.3-0.8 [facility] Comment on above: Performed By: #### C BC #### [facility] [address] [place] [address] Dr. Narciso Amaral Monocytes/100 WBC (Bld) 6.2 % Normal 1.7-12.0 [facility] Comment on above: Performed By: #### C BC #### [facility] [address] [place] [address] Dr. Narciso Amaral NEUT # 5.5 103/ul Normal 1.4-6.5 [facility] Comment on above: Performed By: #### C BC #### [facility] [address] [place] [address] Dr. Narciso Amaral Neutrophils/100 WBC (Bld) 75.1 % Critically high 43.0-75.0 [facility] Comment on above: Performed By: #### C BC #### [facility] [address] [place] [address] Dr. Narciso Amaral Platelet mean volume (Bld) [Entitic vol] 10.3 fL Normal 9.5-13.5 [facility] Comment on above: Performed By: #### C BC #### [facility] [address] [place] [address] Dr. Narciso Amaral PLT 159 103/ul Normal 150-450 [facility] Comment on above: Performed By: #### C BC #### [facility] [address] [place] [address] Dr. Narciso Amaral RBC 3.96 106/ul Critically low 4.20-5.40 [facility] Comment on above: Performed By: #### C BC #### [facility] [address] [address] [address] Narciso Amaral WBC 7.4 103/ul Normal 4.0-11.0 [facility] Comment on above: Performed By: #### C BC #### [facility] [address] [place] [address] Dr. Narciso Amaral Covid-19 PCR ([facility])on 12-25 SARS-CoV-2 (COVID-19) RNA MOHAN+probe Ql (Unsp spec) Not detected Normal NOT DETECTED [facility] Comment on above: Result Comment: When diagnostic [...] for this test is supported by the [place] of Health and Human Service's declaration that [...] #### C VDTBH #### [facility] [address] [place] [address] Dr. Narciso Amaral DRUG SCREEN RAPID (URINE)on 01-08-2022 AMP Negative Normal NEGATIVE [facility] Comment on above: Performed By: #### C T/NGNA #### [facility] [address] [place] [address] Dr. Narciso Amaral BAR Negative Normal NEGATIVE [facility] Comment on above: Performed By: #### C T/NGNA #### [facility] [address] [place] [address] Dr. Narciso Amaral BUP Negative Normal NEGATIVE [facility] Comment on above: Performed By: #### C T/NGNA #### [facility] [address] [place] [address] Dr. Narciso Amaral BZO Negative Normal NEGATIVE [facility] Comment on above: Performed By: #### C T/NGNA #### [facility] [address] [place] [address] Dr. Narciso Amaral TREY Negative Normal NEGATIVE [facility] Comment on above: Performed By: #### C T/NGNA #### [facility] [address] [place] [address] Dr. Narciso Amaral CUT-OFFS SEE BELOW Normal [facility] Comment on above: Result Comment: [...] #### C T/NGNA #### [facility] [address] [place] [address] Dr. Narciso Amaral DRUG CUT HEADER DRUG CLASS TEST SYSTEM CUT-OFF CONCENTRATIONS ARE FOLLOWS: Normal [facility] Comment on above: Performed By: #### C T/NGNA #### [facility] [address] [place] [address] Dr. Narciso Amaral mAMP Negative Normal NEGATIVE [facility] Comment on above: Performed By: #### C T/NGNA #### [facility] [address] [address] [address] Narciso Amaral MTD Negative Normal NEGATIVE [facility] Comment on above: Performed By: #### C T/NGNA #### [facility] [address] [address] [address] Narciso Amaral OPI Negative Normal NEGATIVE [facility] Comment on above: Performed By: #### C T/NGNA #### [facility] [address] [address] [address] Narciso Amaral OXY Negative Normal NEGATIVE [facility] Comment on above: Performed By: #### C T/NGNA #### [facility] [address] [place] [address] Dr. Narciso Amaral PCP Negative Normal NEGATIVE [facility] Comment on above: Performed By: #### C T/NGNA #### [facility] [address] [place] [address] Dr. Narciso Amaral PPX Negative Normal NEGATIVE [facility] Comment on above: Performed By: #### C T/NGNA #### [facility] [address] [address] [address] Narciso Amaral TCA Negative Normal NEGATIVE [facility] Comment on above: Performed By: #### C T/NGNA #### [facility] [address] [place] [address] Dr. Narciso Amaral THC Negative Normal NEGATIVE [facility] Comment on above: Performed By: #### C T/NGNA #### [facility] [address] [place] [address] Dr. Narciso Amaral TYPE AND SCREENon 01-08-2022 TYPE AND SCREEN Negative Normal [facility] Comment on above: Performed By: #### C T/NGNA #### [facility] [address] [place] [address] Dr. Narciso Amaral US PREG BIOPHY W [...] 2022-01-07 16:20 Normal [facility] US PREG BIOPHY W NON STRESSo n [...] 2021-12-31 16:27 Normal [facility] VAGINITIS/VAGINOSIS DNA PROB Julius 12-26-2021 Fany species Negative Normal Negative [facility] Comment on above: Performed By: #### C BC #### [facility] [address] [place] [address] Dr. Narciso Amaral Gardnerella vaginalis Negative Normal Negative [facility] Comment on above: Performed By: #### C BC #### [facility] [address] [address] [address] Narciso Amaral Trichomonas vaginalis Negative Normal Negative [facility] Comment on above: Performed By: #### C BC #### [facility] [address] [address] [address] Narciso Amaral US PREG BIOPHY W [...] 2021-12-25 09:13 Normal [facility] GROUP B STREP CULTUREon 11-26 S. agalactiae Ag Ql (Unsp spec) Culture Observations: NEGATIVE FOR GROUP B STREPTOCOCCUS. Normal [facility] Comment on above: Performed By: #### C T/HAWA #### [facility] [address] [place] [address] Dr. Narciso Amaral US PREG GROWTHon 12-24-2021 US PREG GROWTH Ultrasound biophysical profile Ultrasound obstetrical, limited CLINICAL: Oligohydramnios follow-up. TECHNIQUE: Transabdominal obstetrical ultrasound was performed. Ultrasound biophysical profile was also performed by materials management supervisor. FINDINGS: 09/29/2021. FETUS AND PLACENTA: There [...] gestational age according to Hadlock criteria. Remarks: Operating Room Aide reports that Dr. Watkins is aware of findings. Electronically authenticated by: AMPARO PATEL Date: 2021-12-24 12:27 Normal [facility] CBCon 10-28-2021 Hematocrit (Bld) [Volume fraction] 35.7 % Low 36 - 46 % [facility] Hemoglobin (Bld) [Mass/Vol] 11.9 g/dL Low 12.0 - 16.0 g/dL [facility] Interpretation and review of laboratory results Abnormal [facility] MCH (RBC) [Entitic mass] 32.8 pg 26 - 34 pg [facility] MCHC (RBC) [Mass/Vol] 33.4 g/dL 31 - 37 g/dL [facility] MCV (RBC) [Entitic vol] 98.1 fL 80 - 100 fL [facility] Platelet distribution width (Bld) [Ratio] 12.1 % 12.1 - 15.2 % [facility] Platelets (Bld) [#/Vol] 178 10*3/uL [facility] RBC (Bld) [#/Vol] 3.64 10*6/uL Low 4.0 - 5.2 m/uL [facility] WBC (Bld) [#/Vol] 7.6 10*3/uL [facility] Glucose tolerance, 1 houron 10-28-2021 GLU ADMN Glucola [facility] Glucose tolerance screen 50g 134 mg/dL 70 - 135 mg/dL [facility] US PREG INCOMPLETE ANATOMYon 09-29-2021 US [...] by: GREG RODNEY Date: 2021-09-29 08:50 Normal [facility] US PREG ANATOMY SINGLEon US PREG [...] 2021-09-01 16:26 Normal [facility] AFP MATERNAL FOR SPINA BIFID Aon 08-25-2021 AFP MoM 0.71 Normal [facility] Comment on above: Performed By: #### C BC #### [facility] [address] [address] [address] Narciso Amaral AFP Value 45.2 ng/mL Normal [facility] Comment on above: Performed By: #### C BC #### [facility] [address] [address] [address] Narciso Amaral AFP, Serum for Spina Bifida Report Normal [facility] Comment on above: Performed By: #### C BC #### [facility] [address] [address] [address] Narciso Amaral Comment Comment Normal [facility] Comment on above: Result Comment: Ky Magallon, Ph.D., [facility] Director . References: Available Upon Request. . Multiples Of Median Cutoffs For AFP Elevations Bernstein 2.5 Black 2.8 IDD 2.0 Twins 4.5 Abbreviation Definitions IDD - Insulin Dep Diabetes OSBR - Open Spina Bifida Risk . For further inquiries contact [employer] at [phone]. Performed By: #### C BC #### [facility] [address] [address] [address] Narciso Amaral Gest Age Collection Date 19.0 weeks Normal [facility] Comment on above: Performed By: #### C BC #### [facility] [address] [address] [address] Narciso Amaral Gestat, Age Based on LMP Normal [facility] Comment on above: Result Comment: Reca lculations are not recommended when gestational dating by LMP and ultrasound are within 10 days. Performed By: #### C BC #### [facility] [address] [address] [address] Narciso Amaral Insulin Dep Diabetes No Normal [facility] Comment on above: Performed By: #### C BC #### [facility] [address] [address] [address] Narciso Amaral Interpretation Comment Normal [facility] Comment on above: Result Comment: Inte [...] Customer Services to discuss available options. The [employer] recommends amniocentesis be offered to women age 35 and older. Performed By: #### C BC #### [facility] [address] [place] [address] Dr. Narciso Amaral [age] Normal [facility] Comment on above: Performed By: #### C BC #### [facility] [address] [address] [address] Narciso Amaral Multiple Gestation No Normal [facility] Comment on above: Performed By: #### C BC #### [facility] [address] [place] [address] Dr. Naricso Amaral [place] [id number] Normal [facility] Comment on above: Performed By: #### C BC #### [facility] [address] [place] [address] Dr. Narciso Amaral PDF . [facility] Comment on above: Performed By: #### C BC #### [facility] [address] [place] [address] Dr. Narciso Amaral Race [facility] Comment on above: Performed By: #### C BC #### [facility] [address] [place] [address] Dr. Narciso Amaral Test Results: Negative [facility] Comment on above: Performed By: #### C BC #### [facility] [address] [place] [address] Dr. Narciso Amaral PAP ACOG PANEL 2: 21 to 29on 08-23-2021 . . [facility] Comment on above: Performed By: #### C BC #### [facility] [address] [place] [address] Dr. Narciso Amaral Age Gdln ACOG Testing - [facility] Comment on above: Performed By: #### C BC #### [facility] [address] [place] [address] Dr. Narciso Amaral DIAGNOSIS: Comment [facility] Comment on above: Result Comment: NEGA TIVE FOR INTRAEPITHELIAL LESION OR MALIGNANCY. Performed By: #### C BC #### [facility] [address] [place] [address] Dr. Narciso Amaral Methodology: Comment [facility] Comment on above: Result Comment: This liquid based ThinPrep(R) pap test was screened with the use of an image guided system. Performed By: #### C BC #### [facility] [address] [place] [address] Dr. Narciso Amaral Note: Comment [facility] Comment on above: Result Comment: The [...] #### C BC #### [facility] [address] [place] [address] Dr. Narciso Amaral Performed by: Comment Normal [facility] Comment on above: Result Comment: Nani Power, Magistrate Assistant (ASCP) Performed By: #### C BC #### [facility] [address] [address] [address] Narciso Amaral Reflex Criteria: Comment Normal [facility] Comment on above: Result Comment: The HPV DNA reflex criteria were not met with this specimen result therefore, no HPV testing was performed. . Performed By: #### C BC #### [facility] [address] [address] [address] Narciso Amaral Specimen adequacy: Comment Normal [facility] Comment on above: Result Comment: Sati sfactory for evaluation. No endocervical component is identified. Performed By: #### C BC #### [facility] [address] [place] [address] Dr. Narciso Amaral CHLAMYDIA/GONOCOCCUS MOHAN (SW AB/URINE/PAPon 08-21-2021 Chlamydia trachomatis, MOHAN Negative Normal Negative [facility] Comment on above: Performed By: #### C T/NGNA #### [facility] [address] [address] [address] Narciso Amaral Neisseria gonorrhoeae, MOHAN Negative Normal Negative [facility] Comment on above: Performed By: #### C T/NGNA #### [facility] [address] [address] [address] Narciso Amaral HEP B SURFACE ANTIGEN SCREEN on 07-04-2021 HBsAg Screen Negative Normal Negative [facility] Comment on above: Performed By: #### N BOX #### [facility] [address] [address] [address] Narciso Amaral HEPATITIS C VIRUS AB W/ REFL EX QUANTon 07-04-2021 HCV AB <0.1 Normal 0.0-0.9 [facility] Comment on above: Performed By: #### C BC #### [facility] [address] [place] [address] Dr. Narciso Amaral Interpretation: Comment Normal [facility] Comment on above: Result Comment: Nega tive Not infected with HCV, unless recent infection is suspected or other evidence exists to indicate HCV infection. Performed By: #### C BC #### [facility] [address] [place] [address] Dr. Narciso Amaral HIV 1 AND 2 WITH REFLEXon HIV Screen 4th Generation wRfx Non-Reactive Normal Non Reactive [facility] Comment on above: Result Comment: HIV Negative HIV-1/HIV-2 antibodies and HIV-1 p24 antigen were NOT detected. There is no laboratory evidence of HIV infection. Performed By: #### N BOX #### [facility] [address] [place] [address] Dr. Narciso Amaral RPR QUANTon 07-04-2021 Rapid Plasma Reagin, Quant Non-Reactive Normal NonRea<1:1 [facility] Comment on above: Performed By: #### C BC #### [facility] [address] [place] [address] Dr. Narciso Amaral RUBELLA AB IGGon 07-04-2021 Rubella Antibodies, IgG <0.90 Critically low Immune >0.99 [facility] Comment on above: Result Comment: Non- immune <0.90 Equivocal 0.90 - 0.99 Immune >0.99 Performed By: #### R UBIGG #### [facility] [address] [place] [address] Dr. Narciso Amaral CBC AUTO DIFFon 07-03-2021 BASO # 0.0 103/ul Normal 0.0-0.1 [facility] Comment on above: Performed By: #### C BC #### [facility] [address] [place] [address] Dr. Narciso Amaral Basophils/100 WBC (Bld) 0.4 % Normal 0.2-2.0 [facility] Comment on above: Performed By: #### C BC #### [facility] [address] [place] [address] Dr. Narciso Amaral EO # 0.0 103/ul Normal 0.0-0.7 [facility] Comment on above: Performed By: #### C BC #### [facility] [address] [place] [address] Dr. Narciso Amaral Eosinophils/100 WBC (Bld) 0.4 % Critically low 0.9-7.0 [facility] Comment on above: Performed By: #### C BC #### [facility] [address] [place] [address] Dr. Narciso Amaral Erythrocyte distribution width (RBC) [Ratio] 11.9 % Normal 11.0-15.0 [facility] Comment on above: Performed By: #### C BC #### [facility] [address] [place] [address] Dr. Narciso Amaral Hematocrit (Bld) [Volume fraction] 33.0 % Critically low 36.0-48.0 [facility] Comment on above: Performed By: #### C BC #### [facility] [address] [place] [address] Dr. Narciso Amaral Hemoglobin (Bld) [Mass/Vol] 11.3 g/dL Critically low 12.0-16.0 [facility] Comment on above: Performed By: #### C BC #### [facility] [address] [place] [address] Dr. Narciso Amaral IG # 0.01 10e3/ul Normal 0.00-0.03 [facility] Comment on above: Performed By: #### C BC #### [facility] [address] [place] [address] Dr. Narciso Amaral IG % 0.2 % Normal 0.0-0.5 [facility] Comment on above: Performed By: #### C BC #### [facility] [address] [place] [address] Dr. Narciso Amaral LYMPH # 1.9 103/ul Normal 1.2-3.8 [facility] Comment on above: Performed By: #### C BC #### [facility] [address] [place] [address] Dr. Narciso Amaral Lymphocytes/100 WBC (Bld) 35.9 % Normal 20.5-60.0 [facility] Comment on above: Performed By: #### C BC #### [facility] [address] [place] [address] Dr. Narciso Amaral MANUAL DIFF REQ NO Normal [facility] Comment on above: Performed By: #### C BC #### [facility] [address] [place] [address] Dr. Narciso Amaral MCH (RBC) [Entitic mass] 31.6 pg Normal 26.7-34.0 [facility] Comment on above: Performed By: #### C BC #### [facility] [address] [place] [address] Dr. Narciso Amaral MCHC (RBC) [Mass/Vol] 34.2 g/dL Normal 29.9-35.2 [facility] Comment on above: Performed By: #### C BC #### [facility] [address] [place] [address] Dr. Narciso Amaral MCV (RBC) [Entitic vol] 92.2 fL Normal 81.0-99.0 [facility] Comment on above: Performed By: #### C BC #### [facility] [address] [place] [address] Dr. Narciso Amaral MONO # 0.2 103/ul Critically low 0.3-0.8 [facility] Comment on above: Performed By: #### C BC #### [facility] [address] [place] [address] Dr. Narciso Amaral Monocytes/100 WBC (Bld) 4.2 % Normal 1.7-12.0 [facility] Comment on above: Performed By: #### C BC #### [facility] [address] [place] [address] Dr. Naricso Amaral NEUT # 3.1 103/ul Normal 1.4-6.5 [facility] Comment on above: Performed By: #### C BC #### [facility] [address] [place] [address] Dr. Narciso Amaral Neutrophils/100 WBC (Bld) 58.9 % Normal 43.0-75.0 [facility] Comment on above: Performed By: #### C BC #### [facility] [address] [place] [address] Dr. Narciso Amaral Platelet mean volume (Bld) [Entitic vol] 10.4 fL Normal 9.5-13.5 [facility] Comment on above: Performed By: #### C BC #### [facility] [address] [place] [address] Dr. Narciso Amaral PLT 158 103/ul Normal 150-450 [facility] Comment on above: Performed By: #### C BC #### [facility] [address] [address] [address] Narciso Amaral RBC 3.58 106/ul Critically low 4.20-5.40 [facility] Comment on above: Performed By: #### C BC #### [facility] [address] [place] [address] Dr. Narciso Amaral WBC 5.2 103/ul Normal 4.0-11.0 [facility] Comment on above: Performed By: #### C BC #### [facility] [address] [place] [address] Dr. Narciso Amaral CULTURE URINEon 07-03-2021 CULTURE URINE Culture Observations: No growth Normal [facility] Comment on above: Performed By: #### U RCX #### [facility] [address] [place] [address] Dr. Narciso Amaral GLYCOHEMOGLOBIN A1Con 2021 ADA RECOMMENDATION ADA THERAPEUTIC TARGET 6.0 - 7.0 ACTION SUGGESTED > 7.0 Normal [facility] Comment on above: Performed By: #### N BOX #### [facility] [address] [place] [address] Dr. Narciso Amaral Glucose [Mass/Vol] 88 mg/dL Normal [facility] Comment on above: Performed By: #### N BOX #### [facility] [address] [place] [address] Dr. Narciso Amaral HbA1c (Bld) [Mass fraction] 4.7 % Normal <=6.0 [facility] Comment on above: Performed By: #### N BOX #### [facility] [address] [place] [address] Dr. Narciso Amaral BERNADINE BOX TEST PT SEND OUTo n 07-03-2021 SENT TO REF LAB 07/03/2021 Normal [facility] Comment on above: Performed By: #### N BOX #### [facility] [address] [place] [address] Dr. Narciso Amaral TYPE AND SCREENon 07-03-2021 TYPE AND SCREEN Negative Normal [facility] Comment on above: Performed By: #### C T/NGNA #### [facility] [address] [place] [address] Dr. Narciso Amaral CBC AUTO DIFFon 06-17-2021 BASO # 0.0 103/ul Normal 0.0-0.1 [facility] Comment on above: Performed By: #### N BOX #### [facility] [address] [place] [address] Dr. Naricso Amaral Basophils/100 WBC (Bld) 0.4 % Normal 0.2-2.0 [facility] Comment on above: Performed By: #### N BOX #### [facility] [address] [place] [address] Dr. Narciso Amaral EO # 0.0 103/ul Normal 0.0-0.7 [facility] Comment on above: Performed By: #### N BOX #### [facility] [address] [place] [address] Dr. Narciso Amaral Eosinophils/100 WBC (Bld) 0.0 % Critically low 0.9-7.0 [facility] Comment on above: Performed By: #### N BOX #### [facility] [address] [place] [address] Dr. Narciso Amaral Erythrocyte distribution width (RBC) [Ratio] 11.6 % Normal 11.0-15.0 [facility] Comment on above: Performed By: #### N BOX #### [facility] [address] [place] [address] Dr. Narciso Amaral Hematocrit (Bld) [Volume fraction] 42.6 % Normal 36.0-48.0 [facility] Comment on above: Performed By: #### N BOX #### [facility] [address] [place] [address] Dr. Narciso Amaral Hemoglobin (Bld) [Mass/Vol] 14.9 g/dL Normal 12.0-16.0 [facility] Comment on above: Performed By: #### N BOX #### [facility] [address] [place] [address] Dr. Narciso Amaral IG # 0.02 10e3/ul Normal 0.00-0.03 [facility] Comment on above: Performed By: #### N BOX #### [facility] [address] [place] [address] Dr. Narciso Amaral IG % 0.3 % Normal 0.0-0.5 [facility] Comment on above: Performed By: #### N BOX #### [facility] [address] [place] [address] Dr. Narciso Amaral LYMPH # 2.1 103/ul Normal 1.2-3.8 [facility] Comment on above: Performed By: #### N BOX #### [facility] [address] [place] [address] Dr. Narciso Amaral Lymphocytes/100 WBC (Bld) 28.8 % Normal 20.5-60.0 [facility] Comment on above: Performed By: #### N BOX #### [facility] [address] [place] [address] Dr. Narciso Amaral MANUAL DIFF REQ NO Normal [facility] Comment on above: Performed By: #### N BOX #### [facility] [address] [place] [address] Dr. Narciso Amaral MCH (RBC) [Entitic mass] 31.6 pg Normal 26.7-34.0 [facility] Comment on above: Performed By: #### N BOX #### [facility] [address] [place] [address] Dr. Narciso Amaral MCHC (RBC) [Mass/Vol] 35.0 g/dL Normal 29.9-35.2 [facility] Comment on above: Performed By: #### N BOX #### [facility] [address] [place] [address] Dr. Narciso Amaral MCV (RBC) [Entitic vol] 90.4 fL Normal 81.0-99.0 [facility] Comment on above: Performed By: #### N BOX #### [facility] [address] [place] [address] Dr. Narciso Amaral MONO # 0.3 103/ul Normal 0.3-0.8 [facility] Comment on above: Performed By: #### N BOX #### [facility] [address] [place] [address] Dr. Narciso Amaral Monocytes/100 WBC (Bld) 4.6 % Normal 1.7-12.0 [facility] Comment on above: Performed By: #### N BOX #### [facility] [address] [place] [address] Dr. Narciso Amaral NEUT # 4.7 103/ul Normal 1.4-6.5 [facility] Comment on above: Performed By: #### N BOX #### [facility] [address] [place] [address] Dr. Narciso Amaral Neutrophils/100 WBC (Bld) 65.9 % Normal 43.0-75.0 [facility] Comment on above: Performed By: #### N BOX #### [facility] [address] [place] [address] Dr. Narciso Amaral Platelet mean volume (Bld) [Entitic vol] 9.7 fL Normal 9.5-13.5 [facility] Comment on above: Performed By: #### N BOX #### [facility] [address] [place] [address] Dr. Narciso Amaral PLT 199 103/ul Normal 150-450 [facility] Comment on above: Performed By: #### N BOX #### [facility] [address] [place] [address] Dr. Narciso Amaral RBC 4.71 106/ul Normal 4.20-5.40 [facility] Comment on above: Performed By: #### N BOX #### [facility] [address] [place] [address] Dr. Narciso Amaral WBC 7.1 103/ul Normal 4.0-11.0 [facility] Comment on above: Performed By: #### N BOX #### [facility] [address] [place] [address] Dr. Narciso Amaral ER URINE PROFILEon 2 Bilirubin Ql (U) Negative Normal NEGATIVE [facility] Comment on above: Performed By: #### E RUR #### [facility] [address] [place] [address] Dr. Narciso Amaral Clarity (U) SL CLOUDY Abnormal CLEAR [facility] Comment on above: Performed By: #### E RUR #### [facility] [address] [place] [address] Dr. Narciso Amaral Color (U) YELLOW Normal YELLOW [facility] Comment on above: Performed By: #### E RUR #### [facility] [address] [place] [address] Dr. Narciso MCCLELLAN A micrscopic examination will be performed if indicated. Normal [facility] Comment on above: Performed By: #### E RUR #### [facility] [address] [place] [address] Dr. Narciso Amaral Glucose Ql (U) Negative Normal NEGATIVE [facility] Comment on above: Performed By: #### E RUR #### [facility] [address] [place] [address] Dr. Narciso Amaral Hemoglobin Ql (U) Negative Normal NEGATIVE [facility] Comment on above: Performed By: #### E RUR #### [facility] [address] [place] [address] Dr. Narciso Amaral Ketones Ql (U) >=80 Abnormal NEGATIVE [facility] Comment on above: Performed By: #### E RUR #### [facility] [address] [address] [address] Narciso Amaral LEUKOCYTES Negative Normal NEGATIVE [facility] Comment on above: Performed By: #### E RUR #### [facility] [address] [place] [address] Dr. Narciso Amaral Nitrite Ql (U) Negative Normal NEGATIVE [facility] Comment on above: Performed By: #### E RUR #### [facility] [address] [place] [address] Dr. Narciso Amaral pH (U) 6.0 [pH] Normal 5-9 [facility] Comment on above: Performed By: #### E RUR #### [facility] [address] [place] [address] Dr. Narciso Amaral SPEC GRAVITY >=1.030 Abnormal 1.005-<=1.025 [facility] Comment on above: Performed By: #### E RUR #### [facility] [address] [place] [address] Dr. Narciso Amaral UA PROTEIN TRACE Normal NEGATIVE/ TRACE [facility] Comment on above: Performed By: #### E RUR #### [facility] [address] [place] [address] Dr. Narciso Amaral UR MICRO IND NOT INDICATED Normal [facility] Comment on above: Performed By: #### E RUR #### [facility] [address] [place] [address] Dr. Narciso Amaral Urobilinogen Qn (U) 1.0 {Maggy'U}/dL Normal 0.2 - 1. 0 [facility] Comment on above: Performed By: #### E RUR #### [facility] [address] [place] [address] Dr. Narciso Amaral PROF 14(COMP METB)on 022 Albumin [Mass/Vol] 4.6 g/dL Normal 3.5-5.0 [facility] Comment on above: Performed By: #### C BC #### [facility] [address] [place] [address] Dr. Narciso Amaral Albumin/Globulin [Mass ratio] 1.0 {ratio} Normal [facility] Comment on above: Performed By: #### C BC #### [facility] [address] [place] [address] Dr. Narciso Amaral ALP [Catalytic activity/Vol] 54 U/L Normal 38-126 [facility] Comment on above: Performed By: #### C BC #### [facility] [address] [place] [address] Dr. Narciso Amaral ALT [Catalytic activity/Vol] 12 U/L Normal 9-52 [facility] Comment on above: Performed By: #### C BC #### [facility] [address] [address] [address] Narciso Amaral Anion gap [Moles/Vol] 14.8 mmol/L Normal [facility] Comment on above: Performed By: #### C BC #### [facility] [address] [address] [address] Narciso Amaral AST [Catalytic activity/Vol] 11 U/L Critically low 14-36 [facility] Comment on above: Performed By: #### C BC #### [facility] [address] [address] [address] Narciso Amaral Bilirubin [Mass/Vol] 0.9 mg/dL Normal 0.2-1.3 [facility] Comment on above: Performed By: #### C BC #### [facility] [address] [address] [address] Narciso Amaral Calcium [Mass/Vol] 9.6 mg/dL Normal 8.4-10.2 [facility] Comment on above: Performed By: #### C BC #### [facility] [address] [address] [address] Narciso Amaral Chloride [Moles/Vol] 98 mmol/L Normal 98-107 [facility] Comment on above: Performed By: #### C BC #### [facility] [address] [address] [address] Narciso Amaral CO2 [Moles/Vol] 27.3 mmol/L Normal 22.0-30.0 [facility] Comment on above: Performed By: #### C BC #### [facility] [address] [place] [address] Dr. Narciso Amaral Creatinine [Mass/Vol] 0.55 mg/dL Normal 0.52-1.04 [facility] Comment on above: Performed By: #### C BC #### [facility] [address] [address] [address] Narciso Amaral EGFR-AF PARAGUAYAN >60 Normal >=60 [facility] Comment on above: Performed By: #### C BC #### [facility] [address] [address] [address] Narciso Amaral EGFR-NON AF PARAGUAYAN >60 Normal >=60 [facility] Comment on above: Performed By: #### C BC #### [facility] [address] [address] [address] Narciso Amaral Globulin (S) [Mass/Vol] 4.7 g/dL Normal [facility] Comment on above: Performed By: #### C BC #### [facility] [address] [address] [address] Narciso Amaral Glucose [Mass/Vol] 87 mg/dL Normal 74-106 [facility] Comment on above: Performed By: #### C BC #### [facility] [address] [address] [address] Narciso Amaral Potassium [Moles/Vol] 3.1 mmol/L Critically low 3.4-5.0 [facility] Comment on above: Performed By: #### C BC #### [facility] [address] [address] [address] Narciso Amaral Protein [Mass/Vol] 9.3 g/dL Critically high 6.1-8.2 T [facility] Comment on above: Performed By: #### C BC #### [facility] [address] [address] [address] Narciso Amaral Sodium [Moles/Vol] 137 mmol/L Normal 137-145 [facility] Comment on above: Performed By: #### C BC #### [facility] [address] [address] [address] Narciso Amaral Urea nitrogen [Mass/Vol] 11.0 mg/dL Normal 7.0-17.0 [facility] Comment on above: Performed By: #### C BC #### [facility] [address] [address] [address] Narciso Amaral Urea nitrogen/Creatinine [Mass ratio] 20.0 mg/mg Normal [facility] Comment on above: Performed By: #### C BC #### [facility] [address] [address] [address] Narciso Amaral US PREG TVon 06-17-2021 [...] KRISTINA ESTRADA Date: 2021-06-17 17:29 Normal [facility] Vital Signs Date Time Vital Sign Value Performing Clinician Facility 05-31-2023 08:51-0500 Body mass index (BMI) [Ratio] 22.85 kg/m2 Lydia DOLAN Work Phone: [facility] 05-31-2023 08:51-0500 Body weight 60.38 kg Lydia DOLAN Work Phone: [facility] 05-31-2023 08:51-0500 Diastolic blood pressure 66 mm[Hg] Lydia DOLAN Work Phone: [facility] 05-31-2023 08:51-0500 Systolic blood pressure 102 mm[Hg] Lydia DOLAN Work Phone: [facility] 01-03-2023 20:48-0400 Diastolic blood pressure 66 mm[Hg] Kemal Sharma [facility] 01-03-2023 20:48-0400 Heart rate 68 /min Kemal Sharma [facility] 01-03-2023 20:48-0400 Respiratory rate 18 /min Kemal Sharma [facility] 09-10-2023 20:48-0400 SaO2% (BldA) [Mass fraction] 99 % Kemal Zachary [facility] 01-03-2023 20:48-0400 Systolic blood pressure 110 mm[Hg] Kemal Zachary [facility] 01-03-2023 19:55-0400 Hourly Rounding Kemal Zachary [facility] 01-03-2023 19:53-0400 Diastolic blood pressure 71 mm[Hg] Kemal Zachary [facility] 01-03-2023 19:53-0400 Heart rate 70 /min Kemal Zachary [facility] 01-03-2023 19:53-0400 Respiratory rate 18 /min Kemal Zachary [facility] 01-03-2023 19:53-0400 SaO2% (BldA) [Mass fraction] 99 % Kemal Zachary [facility] 01-03-2023 19:53-0400 Systolic blood pressure 106 mm[Hg] Kemal Zachary [facility] 01-03-2023 18:55-0400 Diastolic blood pressure 74 mm[Hg] Kemal Zachary [facility] 01-03-2023 18:55-0400 Heart rate 74 /min Kemal Zachary [facility] 01-03-2023 18:55-0400 Hourly Rounding Kemal Zachary [facility] 01-03-2023 18:55-0400 Respiratory rate 16 /min Kemal Zachary [facility] 01-03-2023 18:55-0400 SaO2% (BldA) [Mass fraction] 99 % Kemal Zachary [facility] 01-03-2023 18:55-0400 Systolic blood pressure 108 mm[Hg] Kemal Sharma [facility] 01-03-2023 17:55-0400 Hourly Rounding Kemal Sharma [facility] 01-03-2023 17:55-0400 Promise to Return Kemal Zachary [facility] 01-03-2023 16:55-0400 Body temperature 98.06 [degF] Kemal Sharma [facility] 08-25-2021 20:06-0400 Body weight 51.[address] TONI WATKINS [facility] Comment on above: Performed By: #### CBC #### [facility] [address] [address] [address] Narciso Amaral Encounters Encounter Date Encounter [...] Available Start: 04-28-2023 End: [facility]: 04-28-2023 End: 04-28-2023 Subsequent hospital visit by physician [facility] Start: 04-12-2023 End: 04-12-2023 ambulatory LYDIA GALLO Not Available Start: 03-08-2023 End: 03-08-2023 ambulatory TONI TRES Not Available Start: 01-03-2023 End: 01-03-2023 Emergency department patient visit Kemal Sharma Facility:[facility] Start: 01-03-2023 End: 01-03-2023 Emergency department patient visit Kemal Sharma [facility] Start: 01-21-[address] TONI WATKINS [...] EST Routine [facility] [address] [place] [id number] Toni Watkins, [address] [place] [address] [facility] Start: 05-31-2023 End: 05-31-2023 Patient encounter procedure 05/31/2023 12:30 PM EST Routine [facility] [address] [place] [id number] [facility] Start: 05-04-2023 End: 05-04-2023 Patient encounter procedure 05/04/2023 1:30 PM EST [facility] [address] [place] [phone] [facility] Start: 11-24-2022 Influenza [...] HOSPITAL Start: 08-01-2011 HIV screening HIV screen [facility] Start: 2008 Depression Screen Depression Screen [place] [...] Date Payer Category Payer Unknown 1996 Unknown [id number] 2.16.84 0.1.480455.3.579.2.593 1996 Unknown [id number] 2.16.84 0.1.867256.3.579.2.593 1996 Unknown [id number] 2.16.84 0.1.344775.3.579.2.593 1996 Unknown [id number] 2.16.84 0.1.701496.3.579.2.593 1996 Unknown [id number] 2.16.84 0.1.351566.3.579.2.593 1996 Unknown [id number] 2.16.84 0.1.827833.3.579.2.593 1996 Unknown [id number] 2.16.84 0.1.771345.3.579.2.593 1996 Unknown [id number] 2.16.84 0.1.641440.3.579.2.593 1996 Unknown [id number] 2.16.84 0.1.736691.3.579.2.593 1996 Unknown [id number] 2.16.84 0.1.733923.3.579.2.593 1996 Unknown [id number] 2.16.84 0.1.925834.3.579.2.593 1996 Unknown [id number] 2.16.84 0.1.288097.3.579.2.593 1996 Unknown [id number] 2.16.84 0.1.706618.3.579.2.593 1996 Unknown [id number] 2.16.84 0.1.706649.3.579.2.593 1996 Unknown [id number] 2.16.84 0.1.998484.3.579.2.593 1996 Unknown [id number] 2.16.84 0.1.058360.3.579.2.593 1996 Unknown [id number] 2.16.84 0.1.421957.3.579.2.593 1996 Unknown [id number] 2.16.8 40.1.756453.3.579.2.727 1996 Unknown [id number] 2.16.8 40.1.755718.3.579.2.174 1996 Unknown [id number] 2.16.84 0.1.975557.3.579.2.1259 1996 Unknown [id number] 2.16.84 0.1.049046.3.579.2.1259 1996 Unknown [id number] 2.16.84 0.1.964488.3.579.2.1259 1996 Unknown [id number] 2.16.84 0.1.156450.3.579.2.1259 1996 Unknown [id number] 2.16.840 .1.298553.3.579.2.1259 1996 Unknown [id number] 2.16.840. 1.454258.3.579.2.1259 1959 Self-pay [id number] 1959 Self-pay 1959 Unknown [id number] 1.2.840.574352.1.13.239.2.7.3.080376.315 Unknown [id number] 2.16.84 0.1.149677.3.579.2.593 Social History Date Type Detail Facility Tobacco smoking status DCIS Tobacco smoking consumption unknown [facility] Work Phone: Start: 1995 Sex Assigned At Not on file [facility] Work Phone: Start: 04-05-2021 End: 04-07-2023 Tobacco smoking status Never smoked tobacco (finding) [facility] Tobacco smoking status Never [facility] Start: 04-20-2023 Sex Assigned At Female [facility] Start: 04-07-2023 Tobacco use and exposure Smokeless tobacco non-user [facility] Start: 04-20-2023 Alcohol intake Lifetime non-d jay (finding) [facility] Start: 04-20-2023 History of Social function [facility] Start: 11-12-2022 [employer] NEGATED: Highlighted rowStart: NINF History of tobacco use Passive smoker [facility] Functional Status Date Assessment Result Facility 01-03-2023 Functional Status N/A [facility] History of Present illness Narrative [...] and states received a steroid while in [place] for shortened cervix. Pt to have nst [...] of: MAGDALENO Garsia documented in this encounter [facility] Discharge instructions 01-03-2023 Note Date & Type Note Facility 01-03-2023 Hospital Discharg e instructions Patient Education 01/03/2023 20:50:05 Morning Sickness, Uaoi-cl-Qejo Morning Sickness Morning sickness is when you [...] Follow these instructions at home: Medicines Take mgxa-lfd-[id number] and prescription medicines only as told by [...] provider. Document Revised: 11/25/2020 Document Reviewed: 11/04/2020 [employer] Patient Education 2022 [employer] Follow Up Care 01/03/2023 16:18:17 With:Toni WATKINS Address: [address] , [place] [address]- Business (1) When:01/06/2023 20:40:46 [facility] Evaluation + Plan note 01-03-2023 Note [...] discharged home with instructions to follow with [facility] and is to return to the ED with any new or worsening symptoms. Patient voices understanding is agreeable to plan [facility] Evaluation note Note Date & Type Note Facility Evaluation note Diagnosis Third trimester state, incidental documented in this encounter [facility] Hospital course Narrative Note Date & Type Note Facility Hospital course Narrative No data available for this section [facility] Progress note Note Date & Type Note Facility Progress note No data available for this section [facility] Summary Purpose Family History No Family [...] AUTHOR AUTHOR'S ORGANIZ ATION 01/07/2023 Fabian Renner [facility] DATE CREATED AUTHOR AUTHOR'S ORGANIZ ATION 04/29/2023 [facility] DATE CREATED AUTHOR AUTHOR'S ORGANIZ ATION 07/05/2023 [facility] EPIC Patient Care team informatio n (unrecognized section and content) Personnel Name: JASMIN BENSONGloria Address: Address: [address] [place] [address] Dr. Blake, [facility] Reason for Visit (unrecogniz ed section and [...] BE BASED ON THE PRIMARY CLINICAL RECORDS. [employer] provides no warranty or guarantee of the accuracy or completeness of information in this document.
[2023-07-14 13:50] LABS: Hematocrit 37.8 % (36.0-48.0); Hemoglobin 12.3 g/dL (12.0-16.0); Mean Corpuscular HGB Conc 32.5 g/dL (29.9-35.2); Mean Corpuscular Hemoglobin 31.2 pg (26.7-34.0); Mean Corpuscular Volume 95.9 fL (81.0-99.0); Mean Platelet Volume 10.9 fL (9.5-13.5); Platelet Count 149 10^3/uL (150-450); Red Blood Count 3.94 10^6/uL (4.20-5.40); Red Cell Distribution Width 12.8 % (11.0-15.0); White Blood Count 6.8 10^3/uL (4.0-11.0)
[2023-07-14] MEDS: 0.9 % SODIUM CHLORIDE 1,000 ML 125 ML IV ×2 (13:51→16:43)
[2023-07-14] MEDS: CEFAZOLIN SODIUM/DEXTROSE,ISO 1 GM/50 ML IV.SOLN IV (13:55)
[2023-07-14 14:07] LABS: Amphetamine Screen Urine NEGATIVE (NEGATIVE); Barbiturates Screen Urine NEGATIVE (NEGATIVE); Benzodiazepines Screen Urine NEGATIVE (NEGATIVE); Buprenorphine Screen Urine NEGATIVE (NEGATIVE); Cannabinoid Screen Urine NEGATIVE (NEGATIVE); Cocaine Screen Urine NEGATIVE (NEGATIVE); Methadone Screen Urine NEGATIVE (NEGATIVE); Methamphetamines Screen Urine NEGATIVE (NEGATIVE); Opiate Screen Urine NEGATIVE (NEGATIVE); Oxycodone Screen Urine NEGATIVE (NEGATIVE); Phencyclidine Screen Urine NEGATIVE (NEGATIVE); Tricyclic Antidepressant Urine NEGATIVE (NEGATIVE)
[2023-07-14] MEDS: OXYTOCIN/0.9 % SODIUM CHLORIDE 10 UNITS/500 ML PLAST..BAG 6 UNIT IV (15:27)
[2023-07-14] MEDS: ROPIVACAINE HCL/PF 400 MG/200 ML PREMIX 6 MG EPIDURAL (16:43)
[2023-07-14] MEDS: OXYTOCIN/0.9 % SODIUM CHLORIDE 20 UNITS/1,000 ML PLAST..BAG 999 UNIT IV (17:51)
--- NOTE | 2023-07-14 17:58 | PM.OBPRCVD ---
Procedure Intrapartal events: None Induction method: none Delivery augmentation: rupture of membranes and pitocin Delivery monitor: external FHT and external uterine Route of delivery: Episiotomy Description: none L&D Laceration Description: none Estimated blood loss (mL): 200 Anesthesia type: Epidural Disposition: floor Delivery date: 07/14/23 Gender: male presentation: vertex Placental delivery description: Spontaneous cord description: 3 Vessels
[2023-07-15 00:25] VITALS: BP 96/57; PULSE 83; TEMP 37.1
[2023-07-15] MEDS: IBUPROFEN 600 MG TABLET PO ×2 (05:34→21:41)
[2023-07-15 06:10] LABS: Basophils Percent Auto 0.2 % (0.2-2.0); Eosinophils Percent Auto 0.2 % (0.9-7.0); Hematocrit 32.1 % (36.0-48.0); Hemoglobin 10.5 g/dL (12.0-16.0); Immature Granulocytes Abs Auto 0.02 10^3/uL (0.00-0.03); Immature Granulocytes Pct Auto 0.2 % (0.0-0.5); Lymphocytes Absolute Auto 1.9 10^3/uL (1.2-3.8); Lymphocytes Percent Auto 24.2 % (20.5-60.0); Mean Corpuscular HGB Conc 32.7 g/dL (29.9-35.2); Mean Corpuscular Hemoglobin 31.4 pg (26.7-34.0); Mean Corpuscular Volume 96.1 fL (81.0-99.0); Mean Platelet Volume 9.6 fL (9.5-13.5); Monocytes Absolute Auto 0.6 10^3/uL (0.3-0.8); Monocytes Percent Auto 7.1 % (1.7-12.0); Neutrophils Absolute Auto 5.5 10^3/uL (1.4-6.5); Neutrophils Percent Auto 68.1 % (43.0-75.0); Platelet Count 110 10^3/uL (150-450); Red Blood Count 3.34 10^6/uL (4.20-5.40); Red Cell Distribution Width 12.8 % (11.0-15.0)
--- NOTE | 2023-07-15 07:52 | PM.OBPN ---
OB - PN: Subj Subjective Patient comments: no complaints and pain well controlled [place] status: doing well Exam Constitutional Vital Signs, click to edit/add: Last Vital Signs Temp 98.8 F 07/15/23 00:25 Pulse 83 07/15/23 00:25 BP 96/57 07/15/23 00:25 Documenting provider has reviewed patient's vital signs: yes Common normals: no apparent distress Respiratory Common normals: normal respiratory effort and clear to auscultation bilaterally Cardio Common normals: regular rate and regular rhythm GI Common normals: Normal to inspection, nondistended, normoactive bowel sounds present Extremity Common normals: no clubbing, cyanosis or edema and no calf tenderness Results Labs Labs: Short CBC 07/14/23 07/15/23 Range/Units 13:20 06:01 WBC 6.8 8.0 (4.0-11.0) 10^3/uL Hgb 12.3 10.5 L (12.0-16.0) g/dL Hct 37.8 32.1 L (36.0-48.0) % Plt Count 149 L 110 L (150-450) 10^3/uL OB - PN: A/P Plan - Vaginal Delivery day: 1 Plan: routine care Time Spent with Patient Time: Total time spent is greater than 50% in coordination of care (as documented) at patient's floor/unit and/or counseling patient: Total time spent with greater than 50% in coordination of care (as documented) at patient's floor/unit and/or counseling patient: less than 15 minutes
[2023-07-15 08:06] VITALS: TEMP 36.2
[2023-07-15 08:07] VITALS: BP 102/66; PULSE 77
[2023-07-15] MEDS: DOCUSATE SODIUM 100 MG CAPSULE PO (08:14)
[2023-07-15 16:12] VITALS: BP 89/55; PULSE 88
[2023-07-15 16:15] VITALS: TEMP 36.4
[2023-07-16 00:22] VITALS: BP 103/66; PULSE 78; TEMP 36.8
--- NOTE | 2023-07-16 07:06 | P.OBPN_ITS ---
OB - PN: Subj Subjective Patient comments: no complaints and pain well controlled [place] status: doing well Exam Constitutional Vital Signs, click to edit/add: Last Vital Signs Temp 98.2 F 07/16/23 00:22 Pulse 78 07/16/23 00:22 BP 103/66 07/16/23 00:22 O2 Del Method Room Air 07/16/23 00:25 Documenting provider has reviewed patient's vital signs: yes Respiratory Common normals: clear to auscultation bilaterally Cardio Common normals: regular rate and regular rhythm GI Common normals: Normal to inspection, nondistended, normoactive bowel sounds present Extremity Common normals: no calf tenderness OB - PN: A/P Plan - Vaginal Delivery day: 2 Plan: routine care, discharge home and follow up 6 weeks Time Spent with Patient Time: Total time spent is greater than 50% in coordination of care (as documented) at patient's floor/unit and/or counseling patient: Total time spent with greater than 50% in coordination of care (as documented) at patient's floor/unit and/or counseling patient: less than 15 minutes
[2023-07-16 08:05] VITALS: RESP 14; TEMP 36.5
[2023-07-16 08:07] VITALS: BP 105/64; PULSE 78
== END 2023-07-16 12:20 | disposition home or self-care (01) | DRG 807 ==
PROVIDERS: Admitting Provider Obstetrics & Gynecology; Visit Provider Obstetrics & Gynecology
DX: O60.14X0 Preterm labor third trimester with preterm delivery third trimester, not applicable or unspecified (principal); Z37.0 Single live birth; Z3A.36 36 weeks gestation of pregnancy
CPT/HCPCS: 36415; 59050; 59410; 80307; 85025; 85027; 86850; 86900; 86901; 96365; 96366; 96375; 96376

== ENCOUNTER 2023-07-14 20:55 | Outpatient (REF) | payer BC, SELFPAY ==
--- OUTSIDE RECORDS SUMMARY | 2023-07-14 21:01 | XMS_ITS | CCD ---
Author Organization [facility] Care Team Providers Care Pulp Refiner Operator Name Role Phone Unavailable Primary Care [...] TRES, DR MUÑOZ Admitting Unavailable TRES, DR MUOÑZ Consulting Unavailable REQUEST, DR SENA LISTED Primary Care Unavaila ble TRES, DR MUÑOZ Consulting Unavailable REQUEST, NONE LISTED Primary Care Unavaila ble TRES, DR MUÑOZ Attending Unavailable TRES, DR MUÑOZ Admitting Unavailable ZIEBER, DR KRISTINA Kelly Consulting Unavailable REQUEST, DR NONE LISTED Primary Care Unavaila ble TRES, DR MUÑOZ Attending Unavailable LAND O'LAKES, DR GREG Smith Consulting Unavailable TRES, DR [...] DR NONE LISTED Primary Care Unavaila ble TRSE, DR MUÑOZ Consulting Unavailable ZIEBER, DR KRISTINA [...] Admitting Unavailable Gloria CASTELLANOS Primary Care Physician [phone] Kemal Sharma Attending Unavailable Unavailable Primary Care [...] [amoxicillin] Drug Allergy 2 [facility] Repository (3 sources) Amoxicillin; Translations: [amoxicillin] Drug Allergy 3 rash [facility] [place] (1 source) Penicillins Propensity to adverse reactions to drug 3 Rash [facility] (2 sources) Penicillins Drug Allergy 3 [...] hours., # 16 tab(s), Refills(s) 1, Pharmacy: [id number], 168, cm, 04/09/20 15:23:00 EST, Height/Length Dosing, 50.7, kg, 04/09/20 15:23:00 EST, Weight Dosing Start Date: 04/09/20 Status: Ordered Zofran ODT 4 mg Tab-Dis (1 source) Start: 06-09-2021 take 1 tablet by mouth every six hours as needed for nausea Zofran ODT 4 mg Tab-Dis 4 mg = 1 tab(s), Oral, q6hr, PRN Nausea/Vomiting, # 12 tab(s), Refills(s) 0, Pharmacy: [email or web address] [place] [address], 165.1, cm, 06/09/21 2:43:00 EST, Height/Length Dosing, [...] applicable or unspecified; Translations: [MAT CARE OTH CT FTL GRTH 3RD TM UNS] Onset: 12-31-2021 [...] Differentialon 04-28-2023 Basophils (Bld) [#/Vol] 0.03 10*3/uL [facility] Basophils/100 WBC (Bld) 1 % 0 - 2 % [facility] Eosinophils (Bld) [#/Vol] 0.04 10*3/uL [facility] Eosinophils/100 WBC (Bld) 1 % 0 [...] HOSPITAL Immature granulocytes (Bld) [#/Vol] 0.04 10*3/uL [facility] Immature granulocytes/100 WBC (Bld) 1 % 0 - 5 % [facility] Interpretation and review of laboratory results Abnormal [facility] Lymphocytes/100 WBC (Bld) 24 % 15 - 40 % [facility] Lymphocytes/100 WBC (Bld) 1.53 % [facility] MCH (RBC) [Entitic mass] 32.9 pg 26.0 - 34.0 pg [facility] MCHC (RBC) [Mass/Vol] 33.6 g/dL 31.0 - 37.0 g/dL [facility] MCV (RBC) [Entitic vol] 97.8 fL 80.0 - 100.0 fL [facility] Monocytes/100 WBC (Bld) 6 % [...] [facility] WBC other (Bld) [#/Vol] 6.4 [facility] CBC with Diffon 04-28-2023 Abs. Basophil 0.03 k/uL Normal 0.00-0.20 [facility] Comment on above: Performed By: #### C DP, GLUSC #### [facility] [address] [place] [address] Kennel Manager: Greg Castillo MD Abs.Imm.Granulocyte 0.04 k/uL Normal 0.00-0.30 [facility] Comment on above: Performed By: #### C DP, GLUSC #### [facility] [address] [place] [address] Kennel Manager: Greg Castillo MD Abs.Neutrophil (Seg) 4.37 k/uL Normal 2.5-7.0 [facility] Comment on above: Performed By: #### C DP, GLUSC #### [facility] [address] [place] [address] Kennel Manager: Greg Castillo MD Basophils/100 WBC (Bld) 1 % Normal 0-2 [facility] Comment on above: Performed By: #### C DP, GLUSC #### [facility] [address] [place] [address] Kennel Manager: Greg Castillo MD Eosinophils (Bld) [#/Vol] 0.04 10*3/uL Normal 0.00-0.40 [facility] Comment on above: Performed By: #### C DP, GLUSC #### [facility] [address] [place] [address] Kennel Manager: Greg Castillo MD Eosinophils/100 WBC (Bld) 1 % Normal 0-5 [facility] Comment on above: Performed By: #### C DP, GLUSC #### [facility] [address] [place] [phone] Kennel Manager: Greg Castillo MD Erythrocyte distribution width (RBC) [Ratio] 11.8 % Low 12.1-15.2 [facility] Comment on above: Performed By: #### C DP, GLUSC #### [facility] [address] [place] [phone] Kennel Manager: Greg Castillo MD Hematocrit (Bld) [Volume fraction] 35.4 % Low 36.0-46.0 [facility] Comment on above: Performed By: #### C DP, GLUSC #### [facility] [address] [place] [phone] Kennel Manager: Greg Castillo MD Hemoglobin (Bld) [Mass/Vol] 11.9 g/dL Low 12.0-16.0 [facility] Comment on above: Performed By: #### C DP, GLUSC #### [facility] [address] [place] [phone] Kennel Manager: Greg Castillo MD Immature granulocytes/100 WBC (Bld) 1 % Normal 0-5 [facility] Comment on above: Performed By: #### C DP, GLUSC #### [facility] [address] [place] [address] Kennel Manager: Greg Castillo MD Lymphocytes (Bld) [#/Vol] 1.53 10*3/uL Normal 1.00-4.80 [facility] Comment on above: Performed By: #### C DP, GLUSC #### [facility] [address] [place] [address] Kennel Manager: Greg Castillo MD Lymphocytes/100 WBC (Bld) 24 % Normal 15-40 [facility] Comment on above: Performed By: #### C DP, GLUSC #### [facility] [address] [place] [address] Kennel Manager: Greg Castillo MD MCH (RBC) [Entitic mass] 32.9 pg Normal 26.0-34.0 [facility] Comment on above: Performed By: #### C DP, GLUSC #### [facility] [address] [place] [phone] Kennel Manager: Greg Castillo MD MCHC (RBC) [Mass/Vol] 33.6 g/dL Normal 31.0-37.0 [facility] Comment on above: Performed By: #### C DP, GLUSC #### [facility] [address] [place] [address] Kennel Manager: Greg Castillo MD MCV (RBC) [Entitic vol] 97.8 fL Normal 80.0-100.0 [facility] Comment on above: Performed By: #### C DP, GLUSC #### [facility] [address] [place] [phone] Kennel Manager: Greg Castillo MD Monocytes (Bld) [#/Vol] 0.41 10*3/uL Normal 0.00-1.00 [facility] Comment on above: Performed By: #### C DP, GLUSC #### [facility] [address] [place] [address] Kennel Manager: Greg Castillo MD Monocytes/100 WBC (Bld) 6 % Normal 4-8 [facility] Comment on above: Performed By: #### C DP, GLUSC #### [facility] [address] [place] [phone] Kennel Manager: Greg Castillo MD Neutrophil (Seg) 67 % Normal 47-75 [facility] Comment on above: Performed By: #### C DP, GLUSC #### [facility] [address] [place], [place] [phone] Kennel Manager: Greg Castillo MD Platelet mean volume (Bld) [Entitic vol] 9.5 fL Normal 6.0-12.0 [facility] Comment on above: Performed By: #### C DP, GLUSC #### [facility] [address] [place], [place] [phone] Kennel Manager: Greg Castillo MD Platelets (Bld) [#/Vol] 155 10*3/uL Normal 140-450 [facility] Comment on above: Performed By: #### C DP, GLUSC #### [facility] [address] [place], [place] [phone] Kennel Manager: Greg Castillo MD RBC (Bld) [#/Vol] 3.62 10*6/uL Low 4.00-5.20 [facility] Comment on above: Performed By: #### C DP, GLUSC #### [facility] [address] [place], [place] [phone] Kennel Manager: Greg Castillo MD WBC (Bld) [#/Vol] 6.4 10*3/uL Normal 3.5-11.0 [facility] Comment on above: Performed By: #### C DP, GLUSC #### [facility] [address] [place], [place] [phone] ([phone]) Kennel Manager: Greg Castillo MD Glucose David Scr 50gon 2023 Glucose [Mass/Vol] 108 mg/dL Normal 70-135 [facility] Comment on above: Performed By: #### C DP, GLUSC #### [facility] [address] [place] [address] Kennel Manager: Greg Castillo MD Glu Administered via Glucola Normal [facility] Comment on above: Performed By: #### C DP, GLUSC #### [facility] [address] [place] [address] Kennel Manager: Greg Castillo MD Glucose tolerance, 1 houron 04-28-2023 GLU ADMN Glucola [facility] Glucose 1 Hr post 50 g glucose PO [Mass/Vol] 108 mg/dL 70 - 135 mg/dL [facility] Discharge Instructionson Discharge Instructions [id number]#1.00CD:127 Normal [facility] Auto Diffon 01-03-2023 Basophils/100 WBC (Bld) 0.5 % Normal 0.0-2.0 [facility] Comment on above: Order Comment: Order Added by Discern Expert. Performed By: #### 2 325636, 8919391, [id number], [id number] #### [facility] [address] [place] [address] Basophils/Leukocytes Auto (Bld) [Pure # fraction] 0.0 E9/L Normal 0.0-0.2 [facility] Comment on above: Order Comment: Order Added by Discern Expert. Performed By: #### 2 437895, 7289675, 63886611, 4848341 #### [facility] [address] [place] [address] Eosinophils/100 WBC (Bld) 0.3 % Normal 0.0-8.0 [facility] Comment on above: Order Comment: Order Added by Discern Expert. Performed By: #### 2 046566, 3128738, 21561199, 5081544 #### [facility] [address] [place] [address] Eosinophils/Leukocyte s Auto (Bld) [Pure # fraction] 0.0 E9/L Normal 0.0-0.5 [facility] Comment on above: Order Comment: Order Added by Discern Expert. Performed By: #### 2 908716, 0904789, 24616397, 8402114 #### [facility] [address] [place] [address] Lymphocytes/100 WBC (Bld) 29.1 % Normal 14.0-50.0 [facility] Comment on above: Order Comment: Order Added by Discern Expert. Performed By: #### 2 739283, 5641897, 04594119, 8534889 #### [facility] [address] [place] [address] Lymphocytes/Leukocyte s Auto (Bld) [Pure # fraction] 1.7 E9/L Normal 1.0-4.0 [facility] Comment on above: Order Comment: Order Added by Kya Expert. Performed By: #### 2 563712, 6805221, 50483851, 0998292 #### [facility] [address] [place] [address] Monocytes/100 WBC (Bld) 5.1 % Normal 4.0-14.0 [facility] Comment on above: Order Comment: Order Added by Kya Expert. Performed By: #### 2 956557, 0377096, 36487591, 0133173 #### [facility] [address] [place] [address] Monocytes/Leukocytes Auto (Bld) [Pure # fraction] 0.3 E9/L Normal 0.2-1.0 [facility] Comment on above: Order Comment: Order Added by Discern Expert. Performed By: #### 2 325953, 5306202, 75802364, 2617769 #### [facility] [address] [place] [address] Neutrophils/100 WBC (Bld) 65.0 % Normal 36.0-75.0 [facility] Comment on above: Order Comment: Order Added by Kya Expert. Performed By: #### 2 334212, 6799246, 17656660, 1300248 #### [facility] [address] [place] [address] Neutrophils/Leukocyte s Auto (Bld) [Pure # fraction] 3.8 E9/L Normal 2.0-7.5 [facility] Comment on above: Order Comment: Order Added by Discern Expert. Performed By: #### 2 836436, 7630990, 60593459, 7842768 #### [facility] [address] [place] [address] BMPon 01-03-2023 Creatinine [Mass/Vol] 0.5 mg/dL Normal 0.5-1.3 [facility] Comment on above: Performed By: #### 2 025991, 4202045, 79014583, 0855775 #### [facility] [address] [place] [address] Urea nitrogen [Mass/Vol] 8 mg/dL Normal 5-21 [facility] Comment on above: Performed By: #### 2 861922, 9683801, 57814787, 4605218 #### [facility] [address] [place] [address] Urea nitrogen/Creatinine [Mass ratio] 16 No Units Normal 10-20 [facility] Comment on above: Performed By: #### 2 970622, 7764822, 05917672, 4625776 #### [facility] [address] [place] [address] Anion gap [Moles/Vol] 7 mmol/L Normal 6-16 [facility] Comment on above: Performed By: #### 2 318812, 3279081, 76191740, 6190844 #### [facility] [address] [place] [address] Calcium [Mass/Vol] 9.3 mg/dL Normal 8.9-11.1 [facility] Comment on above: Performed By: #### 2 778827, 6292712, 61316116, 7977652 #### [facility] [address] [place] [address] Chloride [Moles/Vol] 105 mmol/L Normal 101-111 [facility] Comment on above: Performed By: #### 2 136547, 6433357, 79410140, 6471284 #### [facility] [address] [place] [address] CO2 [Moles/Vol] 24 mmol/L Normal 21-31 [facility] Comment on above: Performed By: #### 2 506174, 5009592, 57442651, 8168938 #### [facility] [address] [place] [address] Glucose [Mass/Vol] 108 mg/dL Normal 55-199 [facility] Comment on above: Result Comment: If t his glucose result represents a fasting glucose, interpretation should refer to the following reference range: 55-99 mg/dL Performed By: #### 2 825798, 7787815, 99325639, 2775549 #### [facility] [address] [place] [address] Potassium [Moles/Vol] 3.4 mmol/L Low 3.5-5.3 [facility] Comment on above: Performed By: #### 2 558030, 2686783, 45794220, 8795454 #### [facility] [address] [place] [address] Sodium [Moles/Vol] 133 mmol/L Low 135-145 [facility] Comment on above: Performed By: #### 2 506948, 8476674, 64942786, 3100929 #### [facility] [address] [place] [address] CBC w/ Auto Diffon 3 Erythrocyte distribution width (RBC) [Ratio] 12.5 % Normal 10.9-14.2 [facility] Comment on above: Performed By: #### 2 495838, 6394323, 63903871, 5637886 #### [facility] [address] [place] [address] Hematocrit (Bld) [Volume fraction] 39.8 % Normal 34.0-46.0 [facility] Comment on above: Performed By: #### 2 831914, 4698594, 15374616, 5909656 #### [facility] [address] [place] [address] Hemoglobin (Bld) [Mass/Vol] 14.2 g/dL Normal 12.0-16.0 [facility] Comment on above: Performed By: #### 2 385204, 2255067, 82442171, 1419268 #### [facility] [address] [place] [address] MCH (RBC) [Entitic mass] 31.7 pg Normal 27.0-34.0 [facility] Comment on above: Performed By: #### 2 814427, 6834450, 24964130, 6552760 #### [facility] [address] [place] [address] MCHC (RBC) [Mass/Vol] 35.6 g/dL Normal 31.4-36.0 [facility] Comment on above: Performed By: #### 2 277124, 5131022, 35079677, 7707885 #### [facility] [address] [place] [address] MCV (RBC) [Entitic vol] 89.0 fL Normal 80.0-100.0 [facility] Comment on above: Performed By: #### 2 183334, 4512680, 36130101, 0280185 #### [facility] [address] [place] [address] Platelet mean volume (Bld) [Entitic vol] 7.6 fL Normal 6.4-10.8 [facility] Comment on above: Performed By: #### 2 198061, 6242566, 93317521, 0679280 #### [facility] [address] [place] [address] Platelets (Bld) [#/Vol] 170.0 E9/L Normal 150.0-500.0 [facility] Comment on above: Performed By: #### 2 432115, 5868634, 76753004, 5164267 #### [facility] [address] [place] [address] RBC (Bld) [#/Vol] 4.5 E12/L Normal 4.3-5.9 [facility] Comment on above: Performed By: #### 2 100455, 5896298, 70541990, 4540637 #### [facility] [address] [place] [address] WBC corrected for nucl RBC Auto (Bld) [#/Vol] 5.8 E9/L Normal 4.0-11.0 [facility] Comment on above: Performed By: #### 2 857549, 2198238, 26144971, 8517106 #### [facility] [address] [place] [address] CHEMISTRYOrdered By: SYSTEM SYSTEM on 01-03-2023 Anion [...] 0.5 mg/dL Normal 0.5 - 1.3 mg/dL [facility] Remisol GFR/1.73 sq M.predicted among non-blacks MDRD (S/P/Bld) [Vol rate/Area] 133 mL/min/1.73 m2 Normal >=59mL/min/1. 73 m2 [facility] Chem S Glucose [Mass/Vol] 108 mg/dL Normal 55 - 199 mg/dL [facility] Potassium [Moles/Vol] 3.4 mmol/L Low 3.5 - 5.3 mmol/L [facility] Sodium [Moles/Vol] 133 mmol/L Low 135 - 145 mmol/L [facility] Urea nitrogen [Mass/Vol] 8 mg/dL Normal 5 - 21 mg/dL [facility] Remisol Urea nitrogen/Creatinine [Mass ratio] 16 mg/mg Normal 10 - 20 [facility] Consent for Treatmenton 12-25 Consent for Treatment [id number] #1.00CD:127 Normal [facility] ED Clinical Summaryon 2022 ED Clinical Summary [address] [address] ED Clinical Summary Person Information Name: GRACIELA OLIVAREZ [place] Age: 27 Years : 1995 Sex: Female Language: Jamaican PCP: Gloria CASTELLANOS CNP Marital Status: Visit [...] 01/03/2023 20:50:04 01/03/2023 20:50:04 01/03/2023 20:50:04 ADDRESS: [address] [place] [id number] PHYS DOC NOTES: MEDICAL INFORMATION: Prescriptions Given: Medications to Continue with No Changes Other Medications ondansetron (Zofran ODT 4 mg Tab-Dis) 1 Tablets By Mouth every 6 hours as needed Nausea/Vomiting. Refills: 0. valacyclovir (valacyclovir 1 g Tab) take 2 tab at first sign of cold sore repeat in 12 hours.. Refills: 1. PATIENT EDUCATION INFORMATION: Instructions: Morning Sickness, Chas-ui-Halu Follow up: With: Address: When: Toni TRES [facility], [address] [place] [address] [place] [address] Business (1) In 3 days 01/06/2023 DIAGNOSIS: Nausea/vomiting in Normal [facility] ED Note-Physicianon 01-04-20 ED Note-Physician Basic [...] she is dehydrated. Patient is followed by EMAIL MARKETING SPECIALIST, Dr. Watkins, has had an ultrasound [...] discharged home with instructions to follow with EMAIL MARKETING SPECIALIST and is to return to the [...] Toni WATKINS In 3 days 01/06/[address] [place] [address]- Business (1) Additional Instructions: Patient Education Morning Sickness, Mart-zl-Nhdt Attestation Patient was treated and evaluated by the Physician Manager Transportation. The attending physician was in the Emergency [...] is unknown (more content not included)... Normal [facility] Comment on above: Result Comment: Elec [...] these instructions at home: Medicines ? Take bpsv-ddd-fzoksuq and prescription medicines only as told by [...] Reviewed: 11/04/2020 Elsevier Patient Education ? 2022 [employer]. Normal [facility] ED Patient Summaryon 023 ED Patient Summary [address] [address] Patient Discharge Instructions Person Information Name: GRACIELA OLIVAREZ Age: 27 Years Arrival Date: 01/03/2023 16:15:39 Discharge Diagnosis: Nausea/vomiting in Primary Care Physician: Gloria CASTELLANOS CNP Provider Information Primary Provider: Kemal Sharma DO Advanced Frame And Scrap Crusher:Velia Correa PA-C The exam and treatment you received in the Emergency Department were for an urgent problem and are not intended as complete care. It is important that you follow up with a doctor, nurse practitioner, or physician?s refinery operator assistant for ongoing care. If your symptoms [...] With: Address: When: Toni WATKINS [facility], [address] [place] [address] [place] [address] Business (1) In 3 days 01/06/2023 In the event that this physician does not participate in your insurance network, please consult with your insurance company to find a nearby participating provider. Patient Education Materials: Morning Sickness, Cxob-pi-Qfoq A MESSAGE TO ALL PATIENTS REGARDING OPIOIDS PRESCRIPTION OPIOIDS: WHAT YOU NEED TO KNOW Prescription opioids can be used to help relieve munlmvwb-tz-lrrvlh pain and are often prescribed following a [...] be struggling with addiction, tell your health pet care worker and ask for guidance or call [facility]S [employer] (more content not included)... Normal [facility] HEMATOLOGYOrdered By: SYSTEM SYSTEM on 01-03-2023 [...] 35.6 g/dL Normal 31.4 - 36.0 gm/dL [facility] HemeAutoSS MCV (RBC) [Entitic vol] 89.0 fL Normal 80.0 - 100.0 fL FT HemeAutoSS Platelet mean volume (Bld) [Entitic vol] 7.6 fL Normal 6.4 - 10.8 fL [facility] HemeAutoSS Platelets (Bld) [#/Vol] 170.0 E9/L Normal 150.0 - 500.0 E9/L [facility]eAutoSS RBC (Bld) [#/Vol] 4.5 E12/L Normal 4.3 - 5.9 E12/L [facility] HemeAutoSS WBC corrected for nucl RBC Auto (Bld) [#/Vol] 5.8 E9/L Normal 4.0 - 11.0 E9/L [facility] HemeAutoSS UA With Cult Reflexon 2022 Bilirubin Ql (U) 1+ Abnormal Negative [facility] Comment on above: Performed By: #### 1 [id number] #### [facility] [address] [place] [address] Clarity (U) CLEAR Normal Clear [facility] Comment on above: Performed By: #### 1 [id number] #### [facility] [address] [place] [address] Color (U) YELLOW Normal Yellow [facility] Comment on above: Performed By: #### 1 6056922 #### [facility] [address] [place] [address] Epithelial cells.squamous LM.HPF (Urine sed) [#/Area] 3-4 Normal 0-2 [facility] Comment on above: Performed By: #### 1 [id number] #### [facility] [address] [place] [address] Glucose Test strip (U) [Mass/Vol] Negative Normal Negative [facility] Comment on above: Performed By: #### 1 [id number] #### [facility] [address] [place] [address] Hemoglobin Ql (U) 2+ Abnormal Negative [facility] Comment on above: Performed By: #### 1 [id number] #### [facility] [address] [place] [address] Ketones (U) [Mass/Vol] 2+ Abnormal Negative [facility] Comment on above: Performed By: #### 1 [id number] #### [facility] [address] [place] [address] [place].plasma/Lith[place] m.RBC (Bld) [Mass ratio] 0-3 Normal 0-3 [facility] Comment on above: Performed By: #### 1 [id number] #### [facility] [address] [place] [address] Mucus Ql (Urine sed) 2+ Normal [facility] Comment on above: Performed By: #### 1 5950626 #### [facility] [address] [place] [address] Nitrite Ql (U) Negative Normal Negative [facility] Comment on above: Performed By: #### 1 5945940 #### [facility] [address] [place] [address] pH (U) 6.0 [pH] Invalid Interpretation Code 5.0-9.0 [facility] Comment on above: Performed By: #### 1 0963629 #### [facility] [address] [place] [address] Protein (U) [Mass/Vol] 1+ Abnormal Negative [facility] Comment on above: Performed By: #### 1 [id number] #### [facility] [address] [place] [address] Specific gravity (U) [Rel density] >=1.030 Invalid Interpretation Code 1.005-1.030 [facility] Comment on above: Performed By: #### 1 [id number] #### [facility] [address] [place] [address] Type of Urine collection method Clean Catch Normal [facility] Comment on above: Performed By: #### 1 [id number] #### [facility] [address] [place] [address] Urobilinogen Qn (U) 1.0 {Maggy'U}/dL Normal 0.0-1.0 [facility] Comment on above: Performed By: #### 1 3557626 #### [facility] [address] [place] [address] WBC Auto Ql (U) Negative Normal Negative [facility] Comment on above: Performed By: #### 1 1139903 #### [facility] [address] [place] [address] WBC LM.HPF (Urine sed) [#/Area] 0-5 Normal 0-5 [facility] Comment on above: Performed By: #### 1 [id number] #### [facility] [address] [place] [id number] URINALYSISOrdered By: Dianne Ortiz on 01-03-2023 Bilirubin [...] Interpretation Code Negative [facility] UA Auto SS [place].plasma/Lith[place] m.RBC (Bld) [Mass ratio] 0-3 /HPF Normal [...] [facility] UA Auto SS Urobilinogen Qn (U) [id number] {Maggy'U}/dL Normal 0.0 - 1.0 EU/dL [facility] UA Auto SS WBC Auto Ql (U) Negative (01/03/23 5:04 PM) Normal Negative [facility] UA Auto SS WBC LM.HPF (Urine sed) [#/Area] 0-5 /HPF Normal 0-5/HPF [facility] UA Auto SS eGFRon 01-03-2023 GFR/1.73 sq M.predicted among non-blacks MDRD (S/P/Bld) [Vol rate/Area] 133 mL/min/1.73 m2 Normal >=59 [facility] Comment on above: Order Comment: Order added by Discern Expert. Result Comment: Raw Material Planner diya kidney disease could be indicated at eGFR's of less than 60 mL/min/1.73m2. Kidney failure is indicated at less than 15 mL/min/1.73m2. Performed By: #### 2 [id number] #### [facility] [address] [place] [address] CULTURE URINEon 01-10-2022 CULTURE URINE Culture Observations: MODERATE GROWTH OF MIXED GENITAL RIC. NO POTENTIAL PATHOGENS SEEN. Normal [facility] Comment on above: Performed By: #### U RCX #### [facility] [address] [address] [address] Narciso Amaral UA (CLEAN/CATCH) CAPSULE MAKER/MICRO I F IND.on 01-10-2022 Bilirubin Ql (U) Negative Normal NEGATIVE [facility] Comment on above: Performed By: #### U MICRO, UACSIND #### [facility] [address] [address] [address] Narciso Amaral Clarity (U) CLEAR Normal CLEAR [facility] Comment on above: Performed By: #### U MICRO, UACSIND #### [facility] [address] [address] [address] Narciso Amaral Color (U) LT. YELLOW Normal YELLOW [facility] Comment on above: Performed By: #### U MICRO, UACSIND #### [facility] [address] [address] [address] Narciso Amaral Glucose Ql (U) Negative Normal NEGATIVE [facility] Comment on above: Performed By: #### U MICRO, UACSIND #### [facility] [address] [address] [address] Narciso Amaral Hemoglobin Ql (U) LARGE Abnormal NEGATIVE [facility] Comment on above: Performed By: #### U MICRO, UACSIND #### [facility] [address] [address] [address] Narciso Amaral Ketones Ql (U) Negative Normal NEGATIVE [facility] Comment on above: Performed By: #### U MICRO, UACSIND #### [facility] [address] [place] [address] Dr. Narciso Amaral LEUKOCYTES TRACE Abnormal NEGATIVE [facility] Comment on above: Performed By: #### U MICRO, UACSIND #### [facility] [address] [place] [address] Dr. Narciso Amaral Nitrite Ql (U) Negative Normal NEGATIVE [facility] Comment on above: Performed By: #### U MICRO, UACSIND #### [facility] [address] [place] [address] Dr. Narciso Amaral pH (U) 6.0 [pH] Normal 5-9 [facility] Comment on above: Performed By: #### U MICRO, UACSIND #### [facility] [address] [place] [address] Dr. Narciso Amaral SPEC GRAVITY <=1.005 Abnormal 1.005-<=1.025 [facility] Comment on above: Performed By: #### U MICRO, UACSIND #### [facility] [address] [place] [address] Dr. Narciso Amaral UA PROTEIN Negative Normal NEGATIVE/ TRACE [facility] Comment on above: Performed By: #### U MICRO, UACSIND #### [facility] [address] [place] [address] Dr. Narciso Amaral UR MICRO IND INDICATED Normal [facility] Comment on above: Performed By: #### U MICRO, UACSIND #### [facility] [address] [place] [address] Dr. Narciso Amaral Urobilinogen Qn (U) 0.2 {Maggy'U}/dL Normal 0.2 - 1. 0 [facility] Comment on above: Performed By: #### U MICRO, UACSIND #### [facility] [address] [place] [address] Dr. Narciso Aamral URINE MICROSCOPIC ONLYon BACTERIA SMALL Abnormal NONE SEEN [facility] Comment on above: Performed By: #### U MICRO, UACSIND #### [facility] [address] [place] [address] Dr. Narciso Amaral Bacteria identified Cx Nom (U) INDICATED Normal [facility] Comment on above: Performed By: #### U MICRO, UACSIND #### [facility] [address] [place] [address] Dr. Narciso Amaral CAST NONE SEEN Normal NONE SEEN [facility] Comment on above: Performed By: #### U MICRO, UACSIND #### [facility] [address] [address] [address] Narciso Amaral Crystals LM Nom (Urine sed) NONE SEEN Normal NONE SEEN [facility] Comment on above: Performed By: #### U MICRO, UACSIND #### [facility] [address] [place] [address] Dr. Narciso Amaral Epithelial cells LM Ql (Urine sed) FEW Abnormal NONE SEEN /RARE [facility] Comment on above: Performed By: #### U MICRO, UACSIND #### [facility] [address] [place] [address] Dr. Narciso Amaral MUCOUS NONE SEEN Normal NONE SEEN [facility] Comment on above: Performed By: #### U MICRO, UACSIND #### [facility] [address] [place] [address] Dr. Narciso mAaral RBC 5-10 Abnormal 0-2 [facility] Comment on above: Performed By: #### U MICRO, UACSIND #### [facility] [address] [place] [address] Dr. Narciso Amaral WBC 0-2 Abnormal NONE SEEN [facility] Comment on above: Performed By: #### U MICRO, UACSIND #### [facility] [address] [place] [address] Dr. Narciso Amaral CBC AUTO DIFFon 01-09-2022 BASO # 0.0 103/ul Normal 0.0-0.1 [facility] Comment on above: Performed By: #### C BC #### [facility] [address] [place] [address] Dr. Narciso Amaral Basophils/100 WBC (Bld) 0.2 % Normal 0.2-2.0 [facility] Comment on above: Performed By: #### C BC #### [facility] [address] [place] [address] Dr. Narciso Amaral EO # 0.0 103/ul Normal 0.0-0.7 [facility] Comment on above: Performed By: #### C BC #### [facility] [address] [place] [address] Dr. Narciso Amaral Eosinophils/100 WBC (Bld) 0.1 % Critically low 0.9-7.0 [facility] Comment on above: Performed By: #### C BC #### [facility] [address] [place] [address] Dr. Narciso Amaral Erythrocyte distribution width (RBC) [Ratio] 12.8 % Normal 11.0-15.0 [facility] Comment on above: Performed By: #### C BC #### [facility] [address] [place] [address] Dr. Narciso Amaral Hematocrit (Bld) [Volume fraction] 30.8 % Critically low 36.0-48.0 [facility] Comment on above: Performed By: #### C BC #### [facility] [address] [place] [address] Dr. Narciso Amraal Hemoglobin (Bld) [Mass/Vol] 10.0 g/dL Critically low 12.0-16.0 [facility] Comment on above: Performed By: #### C BC #### [facility] [address] [place] [address] Dr. Narciso Amaral IG # 0.02 10e3/ul Normal 0.00-0.03 [facility] Comment on above: Performed By: #### C BC #### [facility] [address] [place] [address] Dr. Narciso Amaral IG % 0.2 % Normal 0.0-0.5 [facility] Comment on above: Performed By: #### C BC #### [facility] [address] [place] [address] Dr. Narciso Amaral LYMPH # 1.4 103/ul Normal 1.2-3.8 [facility] Comment on above: Performed By: #### C BC #### [facility] [address] [place] [address] Dr. Narciso Amaral Lymphocytes/100 WBC (Bld) 14.0 % Critically low 20.5-60.0 [facility] Comment on above: Performed By: #### C BC #### [facility] [address] [place] [address] Dr. Narciso Amaral MANUAL DIFF REQ NO Normal [facility] Comment on above: Performed By: #### C BC #### [facility] [address] [place] [address] Dr. Narciso Amaral MCH (RBC) [Entitic mass] 31.7 pg Normal 26.7-34.0 [facility] Comment on above: Performed By: #### C BC #### [facility] [address] [place] [address] Dr. Narciso Amaral MCHC (RBC) [Mass/Vol] 32.5 g/dL Normal 29.9-35.2 [facility] Comment on above: Performed By: #### C BC #### [facility] [address] [place] [address] Dr. Narciso Amaral MCV (RBC) [Entitic vol] 97.8 fL Normal 81.0-99.0 [facility] Comment on above: Performed By: #### C BC #### [facility] [address] [place] [address] Dr. Narciso Amaral MONO # 0.8 103/ul Normal 0.3-0.8 [facility] Comment on above: Performed By: #### C BC #### [facility] [address] [place] [address] Dr. Narciso Amaral Monocytes/100 WBC (Bld) 8.2 % Normal 1.7-12.0 [facility] Comment on above: Performed By: #### C BC #### [facility] [address] [place] [address] Dr. Narciso Amaral NEUT # 7.9 103/ul Critically high 1.4-6.5 [facility] Comment on above: Performed By: #### C BC #### [facility] [address] [place] [address] Dr. Narciso Amaral Neutrophils/100 WBC (Bld) 77.3 % Critically high 43.0-75.0 [facility] Comment on above: Performed By: #### C BC #### [facility] [address] [place] [address] Dr. Narciso Amaral Platelet mean volume (Bld) [Entitic vol] 9.9 fL Normal 9.5-13.5 [facility] Comment on above: Performed By: #### C BC #### [facility] [address] [address] [address] Narciso Amaral PLT 143 103/ul Critically low 150-450 [facility] Comment on above: Performed By: #### C BC #### [facility] [address] [address] [address] Narciso Amaral RBC 3.15 106/ul Critically low 4.20-5.40 [facility] Comment on above: Performed By: #### C BC #### [facility] [address] [place] [address] Dr. Narciso Amaral WBC 10.2 103/ul Normal 4.0-11.0 [facility] Comment on above: Performed By: #### C BC #### [facility] [address] [place] [address] Dr. Narciso Amaral CBC AUTO DIFFon 01-08-2022 BASO # 0.0 103/ul Normal 0.0-0.1 [facility] Comment on above: Performed By: #### C BC #### [facility] [address] [place] [address] Dr. Narciso Amaral Basophils/100 WBC (Bld) 0.3 % Normal 0.2-2.0 [facility] Comment on above: Performed By: #### C BC #### [facility] [address] [place] [address] Dr. Narciso Amaral EO # 0.0 103/ul Normal 0.0-0.7 [facility] Comment on above: Performed By: #### C BC #### [facility] [address] [place] [address] Dr. Narciso Amarla Eosinophils/100 WBC (Bld) 0.4 % Critically low 0.9-7.0 [facility] Comment on above: Performed By: #### C BC #### [facility] [address] [place] [address] Dr. Narciso Amaral Erythrocyte distribution width (RBC) [Ratio] 12.7 % Normal 11.0-15.0 [facility] Comment on above: Performed By: #### C BC #### [facility] [address] [place] [address] Dr. Narciso Amaral Hematocrit (Bld) [Volume fraction] 38.0 % Normal 36.0-48.0 [facility] Comment on above: Performed By: #### C BC #### [facility] [address] [place] [address] Dr. Narciso Amaral Hemoglobin (Bld) [Mass/Vol] 12.5 g/dL Normal 12.0-16.0 [facility] Comment on above: Performed By: #### C BC #### [facility] [address] [place] [address] Dr. Narciso Amaral IG # 0.03 10e3/ul Normal 0.00-0.03 [facility] Comment on above: Performed By: #### C BC #### [facility] [address] [place] [address] Dr. Narciso Amaral IG % 0.4 % Normal 0.0-0.5 [facility] Comment on above: Performed By: #### C BC #### [facility] [address] [place] [address] Dr. Narciso Amaral LYMPH # 1.3 103/ul Normal 1.2-3.8 [facility] Comment on above: Performed By: #### C BC #### [facility] [address] [place] [address] Dr. Narciso Amaral Lymphocytes/100 WBC (Bld) 17.6 % Critically low 20.5-60.0 [facility] Comment on above: Performed By: #### C BC #### [facility] [address] [place] [address] Dr. Narciso Amaral MANUAL DIFF REQ NO Normal [facility] Comment on above: Performed By: #### C BC #### [facility] [address] [place] [address] Dr. Narciso Amaral MCH (RBC) [Entitic mass] 31.6 pg Normal 26.7-34.0 [facility] Comment on above: Performed By: #### C BC #### [facility] [address] [place] [address] Dr. Narciso Amaral MCHC (RBC) [Mass/Vol] 32.9 g/dL Normal 29.9-35.2 [facility] Comment on above: Performed By: #### C BC #### [facility] [address] [place] [address] Dr. Narciso Amaral MCV (RBC) [Entitic vol] 96.0 fL Normal 81.0-99.0 [facility] Comment on above: Performed By: #### C BC #### [facility] [address] [place] [address] Dr. Narciso Amaral MONO # 0.5 103/ul Normal 0.3-0.8 [facility] Comment on above: Performed By: #### C BC #### [facility] [address] [place] [address] Dr. Narciso Amaral Monocytes/100 WBC (Bld) 6.2 % Normal 1.7-12.0 [facility] Comment on above: Performed By: #### C BC #### [facility] [address] [place] [address] Dr. Narciso Amaral NEUT # 5.5 103/ul Normal 1.4-6.5 [facility] Comment on above: Performed By: #### C BC #### [facility] [address] [place] [address] Dr. Narciso Amaral Neutrophils/100 WBC (Bld) 75.1 % Critically high 43.0-75.0 [facility] Comment on above: Performed By: #### C BC #### [facility] [address] [place] [address] Dr. Narciso Amaral Platelet mean volume (Bld) [Entitic vol] 10.3 fL Normal 9.5-13.5 [facility] Comment on above: Performed By: #### C BC #### [facility] [address] [place] [address] Dr. Narciso Amaral PLT 159 103/ul Normal 150-450 [facility] Comment on above: Performed By: #### C BC #### [facility] [address] [place] [address] Dr. Narciso Amaral RBC 3.96 106/ul Critically low 4.20-5.40 [facility] Comment on above: Performed By: #### C BC #### [facility] [address] [address] [address] Narciso Amaral WBC 7.4 103/ul Normal 4.0-11.0 [facility] Comment on above: Performed By: #### C BC #### [facility] [address] [place] [address] Dr. Narciso Amaral Covid-19 PCR ([facility])on 12-25 SARS-CoV-2 (COVID-19) RNA MOHAN+probe Ql (Unsp spec) Not detected Normal NOT DETECTED [facility] Comment on above: Result Comment: When [...] for this test is supported by the [place] of Health and Human Service's declaration that [...] By: #### C VDTBH #### [facility] [address] [place] [address] Dr. Narciso Amaral DRUG SCREEN RAPID (URINE)on 01-08-2022 AMP Negative Normal NEGATIVE [facility] Comment on above: Performed By: #### C T/NGNA #### [facility] [address] [place] [address] Dr. Narciso Amaral BAR Negative Normal NEGATIVE [facility] Comment on above: Performed By: #### C T/NGNA #### [facility] [address] [place] [address] Dr. Narciso Amaral BUP Negative Normal NEGATIVE [facility] Comment on above: Performed By: #### C T/NGNA #### [facility] [address] [place] [address] Dr. Narciso Amaral BZO Negative Normal NEGATIVE [facility] Comment on above: Performed By: #### C T/NGNA #### [facility] [address] [place] [address] Dr. Narciso Amaral TREY Negative Normal NEGATIVE [facility] Comment on above: Performed By: #### C T/NGNA #### [facility] [address] [place] [address] Dr. Narciso Amaral CUT-OFFS SEE BELOW Normal [facility] Comment on [...] By: #### C T/NGNA #### [facility] [address] [place] [address] Dr. Narciso Amaral DRUG CUT HEADER DRUG CLASS TEST SYSTEM CUT-OFF CONCENTRATIONS ARE FOLLOWS: Normal [facility] Comment on above: Performed By: #### C T/NGNA #### [facility] [address] [place] [address] Dr. Narciso Amaral mAMP Negative Normal NEGATIVE [facility] Comment on above: Performed By: #### C T/NGNA #### [facility] [address] [address] [address] Narciso Amaral MTD Negative Normal NEGATIVE [facility] Comment on above: Performed By: #### C T/NGNA #### [facility] [address] [address] [address] Narciso Amaral OPI Negative Normal NEGATIVE [facility] Comment on above: Performed By: #### C T/NGNA #### [facility] [address] [address] [address] Narciso Amaral OXY Negative Normal NEGATIVE [facility] Comment on above: Performed By: #### C T/NGNA #### [facility] [address] [place] [address] Dr. Narciso Amaral PCP Negative Normal NEGATIVE [facility] Comment on above: Performed By: #### C T/NGNA #### [facility] [address] [place] [address] Dr. Narciso Amaral PPX Negative Normal NEGATIVE [facility] Comment on above: Performed By: #### C T/NGNA #### [facility] [address] [address] [address] Narciso Amaral TCA Negative Normal NEGATIVE [facility] Comment on above: Performed By: #### C T/NGNA #### [facility] [address] [place] [address] Dr. Narciso Amaral THC Negative Normal NEGATIVE [facility] Comment on above: Performed By: #### C T/NGNA #### [facility] [address] [place] [address] Dr. Narciso Amaral TYPE AND SCREENon 01-08-2022 TYPE AND SCREEN Negative Normal [facility] Comment on above: Performed By: #### C T/NGNA #### [facility] [address] [place] [address] Dr. Narciso Amaral US PREG BIOPHY W [...] Date: 2022-01-07 16:20 Normal [facility] US PREG BIOPHY W NON STRESSo [...] Date: 2021-12-31 16:27 Normal [facility] VAGINITIS/VAGINOSIS DNA PROB Julius 12-26-2021 Fany species Negative Normal Negative [facility] Comment on above: Performed By: #### C BC #### [facility] [address] [place] [address] Dr. Narciso Amaral Gardnerella vaginalis Negative Normal Negative [facility] Comment on above: Performed By: #### C BC #### [facility] [address] [address] [address] Narciso Amaral Trichomonas vaginalis Negative Normal Negative [facility] Comment on above: Performed By: #### C BC #### [facility] [address] [address] [address] Narciso Amaral US PREG BIOPHY W [...] KRISTINA ESTRADA Date: 2021-12-25 09:13 Normal [facility] GROUP B STREP CULTUREon 11-26 S. agalactiae Ag Ql (Unsp spec) Culture Observations: NEGATIVE FOR GROUP B STREPTOCOCCUS. Normal [facility] Comment on above: Performed By: #### C T/HAWA #### [facility] [address] [place] [address] Dr. Narciso Amaral US PREG GROWTHon 12-24-2021 US PREG GROWTH Ultrasound biophysical profile Ultrasound obstetrical, limited CLINICAL: Oligohydramnios follow-up. TECHNIQUE: Transabdominal obstetrical ultrasound was performed. Ultrasound biophysical profile was also performed by respiratory therapy assistant. FINDINGS: 09/29/2021. FETUS AND PLACENTA: There [...] gestational age according to Hadlock criteria. Remarks: Top Executive reports that Dr. Watkins is aware of findings. Electronically authenticated by: AMPARO PATEL Date: 2021-12-24 12:27 Normal [facility] CBCon 10-28-2021 Hematocrit (Bld) [Volume fraction] 35.7 % Low 36 - 46 % [facility] Hemoglobin (Bld) [Mass/Vol] 11.9 g/dL Low 12.0 - 16.0 g/dL [facility] Interpretation and review of laboratory results Abnormal [facility] MCH (RBC) [Entitic mass] 32.8 pg 26 - 34 pg [facility] MCHC (RBC) [Mass/Vol] 33.4 g/dL 31 - 37 g/dL [facility] MCV (RBC) [Entitic vol] 98.1 fL 80 - 100 fL [facility] Platelet distribution width (Bld) [Ratio] 12.1 % 12.1 - 15.2 % [facility] Platelets (Bld) [#/Vol] 178 10*3/uL [facility] RBC (Bld) [#/Vol] 3.64 10*6/uL Low 4.0 - 5.2 m/uL [facility] WBC (Bld) [#/Vol] 7.6 10*3/uL [facility] Glucose tolerance, 1 houron 10-28-2021 GLU ADMN Glucola [facility] Glucose tolerance screen 50g 134 mg/dL 70 - 135 mg/dL [facility] US PREG INCOMPLETE ANATOMYon 09-29-2021 US [...] by: GREG RODNEY Date: 2021-09-29 08:50 Normal [facility] US PREG ANATOMY SINGLEon US [...] KRISTINA ESTRADA Date: 2021-09-01 16:26 Normal [facility] AFP MATERNAL FOR SPINA BIFID Aon 08-25-2021 AFP MoM 0.71 Normal [facility] Comment on above: Performed By: #### C BC #### [facility] [address] [address] [address] Narciso Amaral AFP Value 45.2 ng/mL Normal [facility] Comment on above: Performed By: #### C BC #### [facility] [address] [address] [address] Narciso Amaral AFP, Serum for Spina Bifida Report Normal [facility] Comment on above: Performed By: #### C BC #### [facility] [address] [address] [address] Narciso Amaral Comment Comment Normal [facility] Comment on above: Result Comment: Ky Magallon, Ph.D., [facility] Director . References: Available Upon Request. . Multiples Of Median Cutoffs For AFP Elevations Bernstein 2.5 Black 2.8 IDD 2.0 Twins 4.5 Abbreviation Definitions IDD - Insulin Dep Diabetes OSBR - Open Spina Bifida Risk . For further inquiries contact [employer] at [phone]. Performed By: #### C BC #### [facility] [address] [address] [address] Narciso Amaral Gest Age Collection Date 19.0 weeks Normal [facility] Comment on above: Performed By: #### C BC #### [facility] [address] [address] [address] Narciso Amaral Gestat, Age Based on LMP Normal [facility] Comment on above: Result Comment: Reca lculations are not recommended when gestational dating by LMP and ultrasound are within 10 days. Performed By: #### C BC #### [facility] [address] [address] [address] Narciso Amaral Insulin Dep Diabetes No Normal [facility] Comment on above: Performed By: #### C BC #### [facility] [address] [address] [address] Narciso Amaral Interpretation Comment Normal [facility] Comment on above: Result Comment: Inte [...] By: #### C BC #### [facility] [address] [place] [address] Dr. Narciso Amaral [age] Normal [facility] Comment on above: Performed By: #### C BC #### [facility] [address] [address] [address] Narciso Amaral Multiple Gestation No Normal [facility] Comment on above: Performed By: #### C BC #### [facility] [address] [place] [address] Dr. Narciso Amaral [place] 1 [place] [address] Normal [facility] Comment on above: Performed By: #### C BC #### [facility] [address] [place] [address] Dr. Narciso Amaral PDF . [facility] Comment on above: Performed By: #### C BC #### [facility] [address] [place] [address] Dr. Narciso Amaral Race [facility] Comment on above: Performed By: #### C BC #### [facility] [address] [place] [address] Dr. Narciso Amaral Test Results: Negative [facility] Comment on above: Performed By: #### C BC #### [facility] [address] [place] [address] Dr. Narciso Amaral PAP ACOG PANEL 2: 21 to 29on 08-23-2021 . . [facility] Comment on above: Performed By: #### C BC #### [facility] [address] [place] [address] Dr. Narciso Amaral Age Gdln ACOG Testing - [facility] Comment on above: Performed By: #### C BC #### [facility] [address] [place] [address] Dr. Narciso Amaral DIAGNOSIS: Comment [facility] Comment on above: Result Comment: NEGA TIVE FOR INTRAEPITHELIAL LESION OR MALIGNANCY. Performed By: #### C BC #### [facility] [address] [place] [address] Dr. Narciso Amaral Methodology: Comment [facility] Comment on above: Result Comment: This liquid based ThinPrep(R) pap test was screened with the use of an image guided system. Performed By: #### C BC #### [facility] [address] [place] [address] Dr. Narciso Amaral Note: Comment [facility] Comment on above: Result Comment: [...] By: #### C BC #### [facility] [address] [place] [address] Dr. Narciso Amaral Performed by: Comment Normal [facility] Comment on above: Result Comment: [employer]ani [employer], [employer] (ASCP) Performed By: #### C BC #### [facility] [address] [address] [address] Narciso Amaral Reflex Criteria: Comment Normal [facility] Comment on above: Result Comment: The HPV DNA reflex criteria were not met with this specimen result therefore, no HPV testing was performed. . Performed By: #### C BC #### [facility] [address] [address] [address] Narciso Amaral Specimen adequacy: Comment Normal [facility] Comment on above: Result Comment: Sati sfactory for evaluation. No endocervical component is identified. Performed By: #### C BC #### [facility] [address] [place] [address] Dr. Narciso Amaral CHLAMYDIA/GONOCOCCUS MOHAN (SW AB/URINE/PAPon 08-21-2021 Chlamydia trachomatis, MOHAN Negative Normal Negative [facility] Comment on above: Performed By: #### C T/NGNA #### [facility] [address] [address] [address] Narciso Amaral Neisseria gonorrhoeae, MOHAN Negative Normal Negative [facility] Comment on above: Performed By: #### C T/NGNA #### [facility] [address] [address] [address] Narciso Amaral HEP B SURFACE ANTIGEN SCREEN on 07-04-2021 HBsAg Screen Negative Normal Negative [facility] Comment on above: Performed By: #### N BOX #### [facility] [address] [address] [address] Narciso Amaral HEPATITIS C VIRUS AB W/ REFL EX QUANTon 07-04-2021 HCV AB <0.1 Normal 0.0-0.9 [facility] Comment on above: Performed By: #### C BC #### [facility] [address] [place] [address] Dr. Narciso Amaral Interpretation: Comment Normal [facility] Comment on above: Result Comment: Nega tive Not infected with HCV, unless recent infection is suspected or other evidence exists to indicate HCV infection. Performed By: #### C BC #### [facility] [address] [place] [address] Dr. Narciso Amaral HIV 1 AND 2 WITH REFLEXon HIV Screen 4th Generation wRfx Non-Reactive Normal Non Reactive [facility] Comment on above: Result Comment: HIV Negative HIV-1/HIV-2 antibodies and HIV-1 p24 antigen were NOT detected. There is no laboratory evidence of HIV infection. Performed By: #### N BOX #### [facility] [address] [place] [address] Dr. Narciso Amaral RPR QUANTon 07-04-2021 Rapid Plasma Reagin, Quant Non-Reactive Normal NonRea<1:1 [facility] Comment on above: Performed By: #### C BC #### [facility] [address] [place] [address] Dr. Narciso Amaral RUBELLA AB IGGon 07-04-2021 Rubella Antibodies, IgG <0.90 Critically low Immune >0.99 [facility] Comment on above: Result Comment: Non- immune <0.90 Equivocal 0.90 - 0.99 Immune >0.99 Performed By: #### R UBIGG #### [facility] [address] [place] [address] Dr. Narciso Amaral CBC AUTO DIFFon 07-03-2021 BASO # 0.0 103/ul Normal 0.0-0.1 [facility] Comment on above: Performed By: #### C BC #### [facility] [address] [place] [address] Dr. Narciso Amaral Basophils/100 WBC (Bld) 0.4 % Normal 0.2-2.0 [facility] Comment on above: Performed By: #### C BC #### [facility] [address] [place] [address] Dr. Narciso Amaral EO # 0.0 103/ul Normal 0.0-0.7 [facility] Comment on above: Performed By: #### C BC #### [facility] [address] [place] [address] Dr. Narciso Amaral Eosinophils/100 WBC (Bld) 0.4 % Critically low 0.9-7.0 [facility] Comment on above: Performed By: #### C BC #### [facility] [address] [place] [address] Dr. Narciso Amaral Erythrocyte distribution width (RBC) [Ratio] 11.9 % Normal 11.0-15.0 [facility] Comment on above: Performed By: #### C BC #### [facility] [address] [place] [address] Dr. Narciso Amaral Hematocrit (Bld) [Volume fraction] 33.0 % Critically low 36.0-48.0 [facility] Comment on above: Performed By: #### C BC #### [facility] [address] [place] [address] Dr. Narciso Amaral Hemoglobin (Bld) [Mass/Vol] 11.3 g/dL Critically low 12.0-16.0 [facility] Comment on above: Performed By: #### C BC #### [facility] [address] [place] [address] Dr. Narciso Amaral IG # 0.01 10e3/ul Normal 0.00-0.03 [facility] Comment on above: Performed By: #### C BC #### [facility] [address] [place] [address] Dr. Narciso Amaral IG % 0.2 % Normal 0.0-0.5 [facility] Comment on above: Performed By: #### C BC #### [facility] [address] [place] [address] Dr. Narciso Amaral LYMPH # 1.9 103/ul Normal 1.2-3.8 [facility] Comment on above: Performed By: #### C BC #### [facility] [address] [place] [address] Dr. Narciso Amaral Lymphocytes/100 WBC (Bld) 35.9 % Normal 20.5-60.0 [facility] Comment on above: Performed By: #### C BC #### [facility] [address] [place] [address] Dr. Narciso Amaral MANUAL DIFF REQ NO Normal [facility] Comment on above: Performed By: #### C BC #### [facility] [address] [place] [address] Dr. Narciso Amaral MCH (RBC) [Entitic mass] 31.6 pg Normal 26.7-34.0 [facility] Comment on above: Performed By: #### C BC #### [facility] [address] [place] [address] Dr. Narciso Amaral MCHC (RBC) [Mass/Vol] 34.2 g/dL Normal 29.9-35.2 [facility] Comment on above: Performed By: #### C BC #### [facility] [address] [place] [address] Dr. Narciso Amaral MCV (RBC) [Entitic vol] 92.2 fL Normal 81.0-99.0 [facility] Comment on above: Performed By: #### C BC #### [facility] [address] [place] [address] Dr. Narciso Amaral MONO # 0.2 103/ul Critically low 0.3-0.8 [facility] Comment on above: Performed By: #### C BC #### [facility] [address] [place] [address] Dr. Narciso Amaral Monocytes/100 WBC (Bld) 4.2 % Normal 1.7-12.0 [facility] Comment on above: Performed By: #### C BC #### [facility] [address] [place] [address] Dr. Narciso Amaral NEUT # 3.1 103/ul Normal 1.4-6.5 [facility] Comment on above: Performed By: #### C BC #### [facility] [address] [place] [address] Dr. Narciso Amaral Neutrophils/100 WBC (Bld) 58.9 % Normal 43.0-75.0 [facility] Comment on above: Performed By: #### C BC #### [facility] [address] [place] [address] Dr. Narciso Amaral Platelet mean volume (Bld) [Entitic vol] 10.4 fL Normal 9.5-13.5 [facility] Comment on above: Performed By: #### C BC #### [facility] [address] [place] [address] Dr. Narciso Amaral PLT 158 103/ul Normal 150-450 [facility] Comment on above: Performed By: #### C BC #### [facility] [address] [address] [address] Narciso Amaral RBC 3.58 106/ul Critically low 4.20-5.40 [facility] Comment on above: Performed By: #### C BC #### [facility] [address] [place] [address] Dr. Narciso Amaral WBC 5.2 103/ul Normal 4.0-11.0 [facility] Comment on above: Performed By: #### C BC #### [facility] [address] [place] [address] Dr. Narciso Amaral CULTURE URINEon 07-03-2021 CULTURE URINE Culture Observations: No growth Normal [facility] Comment on above: Performed By: #### U RCX #### [facility] [address] [place] [address] Dr. Narciso Amaral GLYCOHEMOGLOBIN A1Con 2021 ADA RECOMMENDATION ADA THERAPEUTIC TARGET 6.0 - 7.0 ACTION SUGGESTED > 7.0 Normal [facility] Comment on above: Performed By: #### N BOX #### [facility] [address] [place] [address] Dr. Narciso Amaral Glucose [Mass/Vol] 88 mg/dL Normal [facility] Comment on above: Performed By: #### N BOX #### [facility] [address] [place] [address] Dr. Narciso Amaral HbA1c (Bld) [Mass fraction] 4.7 % Normal <=6.0 [facility] Comment on above: Performed By: #### N BOX #### [facility] [address] [place] [address] Dr. Narciso Amaral BERNADINE BOX TEST PT SEND OUTo n 07-03-2021 SENT TO REF LAB 07/03/2021 Normal [facility] Comment on above: Performed By: #### N BOX #### [facility] [address] [place] [address] Dr. Narciso Amaral TYPE AND SCREENon 07-03-2021 TYPE AND SCREEN Negative Normal [facility] Comment on above: Performed By: #### C T/NGNA #### [facility] [address] [place] [address] Dr. Narciso Amaral CBC AUTO DIFFon 06-17-2021 BASO # 0.0 103/ul Normal 0.0-0.1 [facility] Comment on above: Performed By: #### N BOX #### [facility] [address] [place] [address] Dr. Narciso Amaral Basophils/100 WBC (Bld) 0.4 % Normal 0.2-2.0 [facility] Comment on above: Performed By: #### N BOX #### [facility] [address] [place] [address] Dr. Narciso Amaral EO # 0.0 103/ul Normal 0.0-0.7 [facility] Comment on above: Performed By: #### N BOX #### [facility] [address] [place] [address] Dr. Narciso Amaral Eosinophils/100 WBC (Bld) 0.0 % Critically low 0.9-7.0 [facility] Comment on above: Performed By: #### N BOX #### [facility] [address] [place] [address] Dr. Narciso Amaral Erythrocyte distribution width (RBC) [Ratio] 11.6 % Normal 11.0-15.0 [facility] Comment on above: Performed By: #### N BOX #### [facility] [address] [place] [address] Dr. Narciso Amaral Hematocrit (Bld) [Volume fraction] 42.6 % Normal 36.0-48.0 [facility] Comment on above: Performed By: #### N BOX #### [facility] [address] [place] [address] Dr. Narciso Amaral Hemoglobin (Bld) [Mass/Vol] 14.9 g/dL Normal 12.0-16.0 [facility] Comment on above: Performed By: #### N BOX #### [facility] [address] [place] [address] Dr. Narciso Amaral IG # 0.02 10e3/ul Normal 0.00-0.03 [facility] Comment on above: Performed By: #### N BOX #### [facility] [address] [place] [address] Dr. Narciso Amaral IG % 0.3 % Normal 0.0-0.5 [facility] Comment on above: Performed By: #### N BOX #### [facility] [address] [place] [address] Dr. Narciso Amaral LYMPH # 2.1 103/ul Normal 1.2-3.8 [facility] Comment on above: Performed By: #### N BOX #### [facility] [address] [place] [address] Dr. Narciso Amaral Lymphocytes/100 WBC (Bld) 28.8 % Normal 20.5-60.0 [facility] Comment on above: Performed By: #### N BOX #### [facility] [address] [place] [address] Dr. Narciso Amaral MANUAL DIFF REQ NO Normal [facility] Comment on above: Performed By: #### N BOX #### [facility] [address] [place] [address] Dr. Narciso Amaral MCH (RBC) [Entitic mass] 31.6 pg Normal 26.7-34.0 [facility] Comment on above: Performed By: #### N BOX #### [facility] [address] [place] [address] Dr. Narciso Amaral MCHC (RBC) [Mass/Vol] 35.0 g/dL Normal 29.9-35.2 [facility] Comment on above: Performed By: #### N BOX #### [facility] [address] [place] [address] Dr. Narciso Amaral MCV (RBC) [Entitic vol] 90.4 fL Normal 81.0-99.0 [facility] Comment on above: Performed By: #### N BOX #### [facility] [address] [place] [address] Dr. Narciso Amaral MONO # 0.3 103/ul Normal 0.3-0.8 [facility] Comment on above: Performed By: #### N BOX #### [facility] [address] [place] [address] Dr. Narciso Amaral Monocytes/100 WBC (Bld) 4.6 % Normal 1.7-12.0 [facility] Comment on above: Performed By: #### N BOX #### [facility] [address] [place] [address] Dr. Narciso Amaral NEUT # 4.7 103/ul Normal 1.4-6.5 [facility] Comment on above: Performed By: #### N BOX #### [facility] [address] [place] [address] Dr. Narciso Amaral Neutrophils/100 WBC (Bld) 65.9 % Normal 43.0-75.0 [facility] Comment on above: Performed By: #### N BOX #### [facility] [address] [place] [address] Dr. Narciso Amaral Platelet mean volume (Bld) [Entitic vol] 9.7 fL Normal 9.5-13.5 [facility] Comment on above: Performed By: #### N BOX #### [facility] [address] [place] [address] Dr. Narciso Amaral PLT 199 103/ul Normal 150-450 [facility] Comment on above: Performed By: #### N BOX #### [facility] [address] [place] [address] Dr. Narciso Amaral RBC 4.71 106/ul Normal 4.20-5.40 [facility] Comment on above: Performed By: #### N BOX #### [facility] [address] [place] [address] Dr. Narciso Amaral WBC 7.1 103/ul Normal 4.0-11.0 [facility] Comment on above: Performed By: #### N BOX #### [facility] [address] [place] [address] Dr. Narciso Amaral ER URINE PROFILEon 2 Bilirubin Ql (U) Negative Normal NEGATIVE [facility] Comment on above: Performed By: #### E RUR #### [facility] [address] [place] [address] Dr. Narciso Amaral Clarity (U) SL CLOUDY Abnormal CLEAR [facility] Comment on above: Performed By: #### E RUR #### [facility] [address] [place] [address] Dr. Narciso Amaral Color (U) YELLOW Normal YELLOW [facility] Comment on above: Performed By: #### E RUR #### [facility] [address] [place] [address] Dr. Narciso MCCLELLAN A micrscopic examination will be performed if indicated. Normal [facility] Comment on above: Performed By: #### E RUR #### [facility] [address] [place] [address] Dr. Narciso Amaral Glucose Ql (U) Negative Normal NEGATIVE [facility] Comment on above: Performed By: #### E RUR #### [facility] [address] [place] [address] Dr. Narciso Amaral Hemoglobin Ql (U) Negative Normal NEGATIVE [facility] Comment on above: Performed By: #### E RUR #### [facility] [address] [place] [address] Dr. Narciso Amaral Ketones Ql (U) >=80 Abnormal NEGATIVE [facility] Comment on above: Performed By: #### E RUR #### [facility] [address] [address] [address] Narciso Amaral LEUKOCYTES Negative Normal NEGATIVE [facility] Comment on above: Performed By: #### E RUR #### [facility] [address] [place] [address] Dr. Narciso Amaral Nitrite Ql (U) Negative Normal NEGATIVE [facility] Comment on above: Performed By: #### E RUR #### [facility] [address] [place] [address] Dr. Narciso Amaral pH (U) 6.0 [pH] Normal 5-9 [facility] Comment on above: Performed By: #### E RUR #### [facility] [address] [place] [address] Dr. Narciso Amaral SPEC GRAVITY >=1.030 Abnormal 1.005-<=1.025 [facility] Comment on above: Performed By: #### E RUR #### [facility] [address] [place] [address] Dr. Narciso Amaral UA PROTEIN TRACE Normal NEGATIVE/ TRACE [facility] Comment on above: Performed By: #### E RUR #### [facility] [address] [place] [address] Dr. Narciso Amaral UR MICRO IND NOT INDICATED Normal [facility] Comment on above: Performed By: #### E RUR #### [facility] [address] [place] [address] Dr. Narciso Amaral Urobilinogen Qn (U) 1.0 {Maggy'U}/dL Normal 0.2 - 1. 0 [facility] Comment on above: Performed By: #### E RUR #### [facility] [address] [place] [address] Dr. Narciso Amaral PROF 14(COMP METB)on 022 Albumin [Mass/Vol] 4.6 g/dL Normal 3.5-5.0 [facility] Comment on above: Performed By: #### C BC #### [facility] [address] [place] [address] Dr. Narciso Amaral Albumin/Globulin [Mass ratio] 1.0 {ratio} Normal [facility] Comment on above: Performed By: #### C BC #### [facility] [address] [place] [address] Dr. Narciso Amaral ALP [Catalytic activity/Vol] 54 U/L Normal 38-126 [facility] Comment on above: Performed By: #### C BC #### [facility] [address] [place] [address] Dr. Narciso Amaral ALT [Catalytic activity/Vol] 12 U/L Normal 9-52 [facility] Comment on above: Performed By: #### C BC #### [facility] [address] [address] [address] Narciso Amaral Anion gap [Moles/Vol] 14.8 mmol/L Normal Th [facility] Comment on above: Performed By: #### C BC #### [facility] [address] [address] [address] Narciso Amaral AST [Catalytic activity/Vol] 11 U/L Critically low 14-36 [facility] Comment on above: Performed By: #### C BC #### [facility] [address] [address] [address] Narciso Amaral Bilirubin [Mass/Vol] 0.9 mg/dL Normal 0.2-1.3 [facility] Comment on above: Performed By: #### C BC #### [facility] [address] [address] [address] Narciso Amaral Calcium [Mass/Vol] 9.6 mg/dL Normal 8.4-10.2 [facility] Comment on above: Performed By: #### C BC #### [facility] [address] [address] [address] Narciso Amaral Chloride [Moles/Vol] 98 mmol/L Normal 98-107 [facility] Comment on above: Performed By: #### C BC #### [facility] [address] [address] [address] Narciso Amaral CO2 [Moles/Vol] 27.3 mmol/L Normal 22.0-30.0 [facility] Comment on above: Performed By: #### C BC #### [facility] [address] [place] [address] Dr. Narciso Amaral Creatinine [Mass/Vol] 0.55 mg/dL Normal 0.52-1.04 [facility] Comment on above: Performed By: #### C BC #### [facility] [address] [address] [address] Narciso Amaral EGFR-AF DUTCH >60 Normal >=60 [facility] Comment on above: Performed By: #### C BC #### [facility] [address] [address] [address] Narciso Amaral EGFR-NON AF DUTCH >60 Normal >=60 [facility] Comment on above: Performed By: #### C BC #### [facility] [address] [address] [address] Narciso Amaral Globulin (S) [Mass/Vol] 4.7 g/dL Normal [facility] Comment on above: Performed By: #### C BC #### [facility] [address] [address] [address] Narciso Amaral Glucose [Mass/Vol] 87 mg/dL Normal 74-106 [facility] Comment on above: Performed By: #### C BC #### [facility] [address] [address] [address] Narciso Amaral Potassium [Moles/Vol] 3.1 mmol/L Critically low 3.4-5.0 [facility] Comment on above: Performed By: #### C BC #### [facility] [address] [address] [address] Narciso Amaral Protein [Mass/Vol] 9.3 g/dL Critically high 6.1-8.2 [facility] Comment on above: Performed By: #### C BC #### [facility] [address] [address] [address] Narciso Amaral Sodium [Moles/Vol] 137 mmol/L Normal 137-145 [facility] Comment on above: Performed By: #### C BC #### [facility] [address] [address] [address] Narciso Amaral Urea nitrogen [Mass/Vol] 11.0 mg/dL Normal 7.0-17.0 [facility] Comment on above: Performed By: #### C BC #### [facility] [address] [address] [address] Narciso Amaral Urea nitrogen/Creatinine [Mass ratio] 20.0 mg/mg Normal [facility] Comment on above: Performed By: #### C BC #### [facility] [address] [address] [address] Narciso Amaral US PREG TVon 06-17-2021 [...] KRISTINA ESTRADA Date: 2021-06-17 17:29 Normal [facility] Vital Signs Date Time Vital Sign Value Performing Clinician Facility 05-31-2023 08:51-0500 Body mass index (BMI) [Ratio] 22.85 kg/m2 Lydia DOLAN Work Phone: [facility] 05-31-2023 08:51-0500 Body weight 60.38 kg Lydia DOLAN Work Phone: [facility] 05-31-2023 08:51-0500 Diastolic blood pressure 66 mm[Hg] Lydia DOLAN Work Phone: [facility] 05-31-2023 08:51-0500 Systolic blood pressure 102 mm[Hg] Lydia DOLAN Work Phone: [facility] 01-03-2023 20:48-0400 Diastolic blood pressure 66 mm[Hg] Kemal Sharma [facility] 01-03-2023 20:48-0400 Heart rate 68 /min Kemal Sharma [facility] 01-03-2023 20:48-0400 Respiratory rate 18 /min Kemal Sharma [facility] 09-10-2023 20:48-0400 SaO2% (BldA) [Mass fraction] 99 % Kemal Zachary [facility] 01-03-2023 20:48-0400 Systolic blood pressure 110 mm[Hg] Kemal Zachary [facility] 01-03-2023 19:55-0400 Hourly Rounding Kemal Zachary [facility] 01-03-2023 19:53-0400 Diastolic blood pressure 71 mm[Hg] Kemal Zachary [facility] 01-03-2023 19:53-0400 Heart rate 70 /min Kemal Zachary [facility] 01-03-2023 19:53-0400 Respiratory rate 18 /min Kemal Zachary [facility] 01-03-2023 19:53-0400 SaO2% (BldA) [Mass fraction] 99 % Kemal Zachary [facility] 01-03-2023 19:53-0400 Systolic blood pressure 106 mm[Hg] Kemal Zachary [facility] 01-03-2023 18:55-0400 Diastolic blood pressure 74 mm[Hg] Kemal Zachary [facility] 01-03-2023 18:55-0400 Heart rate 74 /min Kemal Zachary [facility] 01-03-2023 18:55-0400 Hourly Rounding Kemal Zachary [facility] 01-03-2023 18:55-0400 Respiratory rate 16 /min Kemal Zachary [facility] 01-03-2023 18:55-0400 SaO2% (BldA) [Mass fraction] 99 % Kemal Zachary [facility] 01-03-2023 18:55-0400 Systolic blood pressure 108 mm[Hg] Kemal Sharma [facility] 01-03-2023 17:55-0400 Hourly Rounding Kemla Sharma [facility] 01-03-2023 17:55-0400 Promise to Return Kemal Zachary [facility] 01-03-2023 16:55-0400 Body temperature 98.06 [degF] Kemal Sharma [facility] 08-25-2021 20:06-0400 Body weight 51.[address] TONI WATKINS [facility] Comment on above: Performed By: #### CBC #### [facility] [address] [address] [address] Narciso Amaral Encounters Encounter Date Encounter [...] Available Start: 04-28-2023 End: 04-29-20[facility] Start: 04-28-2023 End: 04-28-2023 Subsequent hospital visit by physician [facility] Start: 04-12-2023 End: 04-12-2023 ambulatory LYDIA GALLO Not Available Start: 03-08-2023 End: 03-08-2023 ambulatory TONI TRES Not Available Start: 01-03-2023 End: 01-03-2023 Emergency department patient visit Kemal Sharma Facility:[facility] Start: 01-03-2023 End: 01-03-2023 Emergency department patient visit Kemal Sharma [facility] Start: 01-21-[address] TONI WATKINS Facility [...] EST Routine [facility] [address] [place] [id number] Toni Watkins, [address] [place] [address] [facility] Start: 05-31-2023 End: 05-31-2023 Patient encounter procedure 05/31/2023 12:30 PM EST [facility] [address] [place] [id number] [facility] Start: 05-04-2023 End: 05-04-2023 Patient encounter procedure 05/04/2023 1:30 PM EST Routine [facility] [address] [place] [id number] [facility] Start: 11-24-2022 Influenza [...] HOSPITAL Start: 08-01-2011 HIV screening HIV screen [facility] Start: 2008 Depression Screen Depression Screen [facility] [...] Date Payer Category Payer Unknown 1996 Unknown [id number] 2.16.84 0.1.316851.3.579.2.593 1996 Unknown [id number] 2.16.84 0.1.995367.3.579.2.593 1996 Unknown [id number] 2.16.84 0.1.768240.3.579.2.593 1996 Unknown [id number] 2.16.84 0.1.246797.3.579.2.593 1996 Unknown [id number] 2.16.84 0.1.198012.3.579.2.593 1996 Unknown [id number] 2.16.84 0.1.180975.3.579.2.593 1996 Unknown [id number] 2.16.84 0.1.886750.3.579.2.593 1996 Unknown [id number] 2.16.84 0.1.701598.3.579.2.593 1996 Unknown [id number] 2.16.84 0.1.052501.3.579.2.593 1996 Unknown [id number] 2.16.84 0.1.934338.3.579.2.593 1996 Unknown [id number] 2.16.84 0.1.871391.3.579.2.593 1996 Unknown [id number] 2.16.84 0.1.326331.3.579.2.593 1996 Unknown [id number] 2.16.84 0.1.894088.3.579.2.593 1996 Unknown [id number] 2.16.84 0.1.824260.3.579.2.593 1996 Unknown [id number] 2.16.84 0.1.244907.3.579.2.593 1996 Unknown [id number] 2.16.84 0.1.211059.3.579.2.593 1996 Unknown [id number] 2.16.84 0.1.386920.3.579.2.593 1996 Unknown [id number] 2.16.8 40.1.676348.3.579.2.727 1996 Unknown [id number] 2.16.8 40.1.773950.3.579.2.174 1996 Unknown [id number] 2.16.84 0.1.655447.3.579.2.1259 1996 Unknown [id number] 2.16.84 0.1.840596.3.579.2.1259 1996 Unknown [id number] 2.16.84 0.1.106848.3.579.2.1259 1996 Unknown [id number] 2.16.84 0.1.779573.3.579.2.1259 1996 Unknown [id number] 2.16.840 .1.013869.3.579.2.1259 1996 Unknown [id number] 2.16.840. 1.454535.3.579.2.1259 1959 Self-pay [id number] 1959 Self-pay 1959 Unknown [id number] [id number] Unknown [id number] 2.16.84 0.1.142194.3.579.2.593 Social History Date Type Detail Facility Tobacco smoking status AKIS Tobacco smoking consumption unknown [email or web address] Work Phone: Start: 1995 Sex Assigned At Not on file [email or web address] Work Phone: Start: 04-05-2021 End: 04-07-2023 Tobacco smoking status Never smoked tobacco (finding) [facility] Tobacco smoking status Never [facility] Start: 04-20-2023 Sex Assigned At Female [facility] Start: 04-07-2023 Tobacco use and exposure Smokeless tobacco non-user [email or web address] Start: 04-20-2023 Alcohol intake Lifetime non-d jay (finding) [email or web address] Start: 04-20-2023 History of Social function [email or web address] Start: 11-12-2022 Zebit NEGATED: Highlighted rowStart: NINF History of tobacco use Passive smoker [email or web address] Functional Status Date Assessment Result Facility 01-03-2023 Functional Status N/A [facility] History of Present illness Narrative 05-31-2023 [...] and states received a steroid while in [place] for shortened cervix. Pt to have nst [...] of: MAGDALENO Garsia documented in this encounter [facility] Discharge instructions 01-03-2023 Note Date & Type Note Facility 01-03-2023 Hospital Discharg e instructions Patient Education 01/03/2023 20:50:05 Morning Sickness, Kvvk-et-Ydrn Morning Sickness Morning sickness is when you [...] Follow these instructions at home: Medicines Take wqda-yvr-ielhfcm and prescription medicines only as told by [...] provider. Document Revised: 11/25/2020 Document Reviewed: 11/04/2020 [employer] Patient Education 2022 [employer] Follow Up Care 01/03/2023 16:18:17 With:Toni WATKINS Address: [address] , [place] [address]- Business (1) When:01/06/2023 20:40:46 [facility] Evaluation + Plan note 01-03-2023 Note Date [...] discharged home with instructions to follow with [facility] and is to return to the ED with any new or worsening symptoms. Patient voices understanding is agreeable to plan [facility] Evaluation note Note Date & Type Note Facility Evaluation note Diagnosis Third trimester state, incidental documented in this encounter [facility] Hospital course Narrative Note Date & Type Note Facility Hospital course Narrative No data available for this section [facility] Progress note Note Date & Type Note Facility Progress note No data available for this section [facility] Summary Purpose Family History No Family History [...] AUTHOR AUTHOR'S ORGANIZ ATION 01/07/2023 Fabian Renner [facility] DATE CREATED AUTHOR AUTHOR'S ORGANIZ ATION 04/29/2023 [facility] [place] [facility] DATE CREATED AUTHOR AUTHOR'S ORGANIZ ATION 07/05/[address] [facility] EPIC Patient Care team informatio n (unrecognized section and content) Personnel Name: JASMIN BENSONGloria Address: Address: [address] [place] [address] Dr. Blake, [facility] Reason for Visit (unrecogniz ed [...] BE BASED ON THE PRIMARY CLINICAL RECORDS. [email or web address] provides no warranty or guarantee of the accuracy or completeness of information in this document.
== END 2023-07-14 20:56 | disposition home or self-care (01) ==
LOC: LAB 20:55
PROVIDERS: Visit Provider Obstetrics & Gynecology
DX: Z34.93 Encounter for supervision of normal pregnancy, unspecified, third trimester (principal)
CPT/HCPCS: 87081